=== PATIENT | female | born 1940 | race Two or more races ===

== ENCOUNTER 2020-08-20 08:59 | Outpatient (REF) | payer MEDICARE, SELFPAY ==
--- NOTE | ~2020-08-20 | XR_ITS ---
EXAMINATION: XR HIP, LEFT CLINICAL INFORMATION: Left hip pain COMPARISON: None TECHNIQUE: Two views of the left hip. FINDINGS: There is no fracture or dislocation. The femoral head articulates appropriately with its acetabulum. Small osteophytes are present. The left hemipelvis is intact. Degenerative changes of the visualized lower lumbar spine. The bowel gas pattern is unremarkable. XR/XR hip LT min 2V IMPRESSION: Mild degenerative change of the left hip.
[2020-08-20 09:38] LABS: MANUAL DIFF FLAG NO
[2020-08-20 09:44] LABS: Basophils Absolute Auto 0.1 X10*3/uL (0.0-0.2); Basophils Percent Auto 0.8 % (0-2); Eosinophils Absolute Auto 0.9 X10*3/uL (0.0-0.4); Eosinophils Percent Auto 8.3 % (0-4); Imm Gran Abs Auto 0.03 X10*3/uL (0.00-0.03); Imm Gran Pct Auto 0.3 % (0.0-0.4); Lymphocytes Percent Auto 39.2 % (20-40); Mean Corpuscular HGB Conc 32.4 g/dl (31.0-35.0); Mean Corpuscular Hemoglobin 30.1 pg (27.0-33.0); Mean Corpuscular Volume 92.7 fL (80-98); Mean Platelet Volume 9.4 fL (9.4-12.3); Monocytes Absolute Auto 0.5 X10*3/uL (0.1-1.2); Monocytes Percent Auto 5.3 % (2-11); Neutrophils Absolute Auto 4.7 X10*3/uL (2.0-8.3); Neutrophils Percent Auto 46.1 % (45-73); Platelet Count 547 X10*3/uL (160-400); Red Blood Count 3.99 X10*6/uL (4.20-5.50); Red Cell Distribution Width 13.2 % (11.0-16.0); White Blood Count 10.2 X10*3/uL (4.8-10.8)
[2020-08-20 09:45] LABS: Glucose Urine UA NEG (NEG); Leukocyte Esterase Urine 2+ (NEG); Nitrite Urine NEG (NEG); PH 5.5 (5.0-8.0); Specific Gravity - Urine >= 1.030 (1.005-1.025); Urine Blood NEG (NEG); Urine Ketones NEG (NEG); Urine Protein NEG (NEG-TRACE)
[2020-08-20 09:46] LABS: Appearance Urine HAZY; Color Urine YELLOW
[2020-08-20 09:55] LABS: Bacteria Urine TRACE /LPF; RBC Urine 0 /HPF (0); Squamous Epithelial Cell Urine 2+ /LPF
[2020-08-20 10:13] LABS: Creatinine Urine 98.99 mg/dL
[2020-08-20 10:22] LABS: Alanine Aminotransferase 15 U/L (0-31); Albumin Level 4.2 g/dL (3.5-5.0); Alkaline Phosphatase 84 U/L (39-117); Anion Gap 13 (12-20); Aspartate Amino Transferase 17 U/L (5-31); Bilirubin Total 0.7 mg/dL (0.0-1.0); Blood Urea Nitrogen 9 mg/dL (9-16); Calcium 9.4 mg/dL (8.4-10.2); Carbon Dioxide 28 mmol/L (22-29); Chloride 105 mmol/L (96-108); Cholesterol 122 mg/dL; Estimated Glomerular Filt Rate > 60; Glucose Random 114 mg/dL (60-115); HDL Cholesterol 36 mg/dL; LDL Cholesterol Calculated 63 mg/dl; Potassium 4.3 mmol/L (3.3-5.1); Sodium 142 mmol/L (135-145); Total Protein 8.1 g/dL (6.5-8.0); Triglycerides 118 mg/dL
[2020-08-20 10:36] LABS: Free T4 (Free Thyroxine) 0.84 ng/dL (0.71-1.85); Thyroid Stimulating Hormone 2.62 uIU/mL (0.32-4.0); Vitamin D 25-OH Total 54.3 ng/mL (>30)
[2020-08-20 11:45] LABS: Folate 5.2 ng/mL (> or = 4.0); Vitamin B12 383 pg/mL (200-900)
== END 2020-08-20 09:00 | disposition home or self-care (01) ==
LOC: HO.LAB 08:59
PROVIDERS: PCP Internal Medicine; Visit Provider Internal Medicine
DX: E11.65 Type 2 diabetes mellitus with hyperglycemia (principal); I10 Essential (primary) hypertension; E78.00 Pure hypercholesterolemia, unspecified; M25.552 Pain in left hip
CPT/HCPCS: 36415; 73502; 80053; 80061; 81001; 82043; 82306; 82607; 82746; 84439; 84443; 85025

== ENCOUNTER 2020-10-07 12:45 | Outpatient (REF) | payer MEDICARE, SELFPAY ==
[2020-10-07 14:13] LABS: MANUAL DIFF FLAG NO
[2020-10-07 14:20] LABS: Glucose Urine UA NEG (NEG); Leukocyte Esterase Urine 1+ (NEG); Nitrite Urine NEG (NEG); PH 5.5 (5.0-8.0); Urine Blood NEG (NEG); Urine Ketones NEG (NEG); Urine Protein NEG (NEG-TRACE)
[2020-10-07 14:20] LABS: Basophils Absolute Auto 0.1 X10*3/uL (0.0-0.2); Basophils Percent Auto 0.9 % (0-2); Eosinophils Percent Auto 8.9 % (0-4); Hematocrit 35.7 % (37-47); Hemoglobin 11.6 g/dl (12.0-16.0); Imm Gran Abs Auto 0.02 X10*3/uL (0.00-0.03); Imm Gran Pct Auto 0.2 % (0.0-0.4); Lymphocytes Absolute Auto 4.7 X10*3/uL (1.2-4.9); Lymphocytes Percent Auto 42.7 % (20-40); Mean Corpuscular HGB Conc 32.5 g/dl (31.0-35.0); Mean Corpuscular Hemoglobin 30.5 pg (27.0-33.0); Mean Corpuscular Volume 93.9 fL (80-98); Mean Platelet Volume 9.6 fL (9.4-12.3); Monocytes Absolute Auto 0.7 X10*3/uL (0.1-1.2); Monocytes Percent Auto 6.1 % (2-11); Neutrophils Absolute Auto 4.6 X10*3/uL (2.0-8.3); Neutrophils Percent Auto 41.2 % (45-73); Platelet Count 576 X10*3/uL (160-400); Red Cell Distribution Width 13.6 % (11.0-16.0)
[2020-10-07 14:25] LABS: Appearance Urine CLEAR; Color Urine YELLOW
[2020-10-07 14:32] LABS: Anion Gap 13 (12-20); Blood Urea Nitrogen 9 mg/dL (9-16); Calcium 9.8 mg/dL (8.4-10.2); Carbon Dioxide 28 mmol/L (22-29); Chloride 104 mmol/L (96-108); Estimated Glomerular Filt Rate > 60; Glucose Random 99 mg/dL (60-115); Potassium 4.7 mmol/L (3.3-5.1); Sodium 140 mmol/L (135-145)
[2020-10-07 14:47] LABS: Creatinine Urine 98.42 mg/dL
[2020-10-07 14:56] LABS: RBC Urine 0 /HPF (0); Squamous Epithelial Cell Urine 1+ /LPF
== END 2020-10-07 12:46 | disposition home or self-care (01) ==
LOC: HO.LAB 12:45
PROVIDERS: PCP Internal Medicine; Visit Provider Internal Medicine
DX: Z01.818 Encounter for other preprocedural examination (principal); E11.65 Type 2 diabetes mellitus with hyperglycemia; I10 Essential (primary) hypertension
CPT/HCPCS: 36415; 80048; 81001; 85025

== ENCOUNTER 2020-11-13 08:40 | Outpatient (REF) | payer MEDICARE, SELFPAY ==
[2020-11-13 10:05] LABS: Glucose Urine UA NEG (NEG); Leukocyte Esterase Urine 3+ (NEG); Nitrite Urine NEG (NEG); Urine Blood NEG (NEG); Urine Ketones NEG (NEG); Urine Protein NEG (NEG-TRACE)
[2020-11-13 10:07] LABS: Appearance Urine HAZY; Color Urine YELLOW
[2020-11-13 10:12] LABS: Bacteria Urine TRACE /LPF; RBC Urine 0 /HPF (0); Squamous Epithelial Cell Urine 3+ /LPF
[2020-11-13 10:13] LABS: MANUAL DIFF FLAG NO
[2020-11-13 10:18] LABS: Basophils Absolute Auto 0.1 X10*3/uL (0.0-0.2); Basophils Percent Auto 0.8 % (0-2); Eosinophils Absolute Auto 0.9 X10*3/uL (0.0-0.4); Eosinophils Percent Auto 7.4 % (0-4); Hematocrit 37.4 % (37-47); Hemoglobin 11.7 g/dl (12.0-16.0); Imm Gran Abs Auto 0.03 X10*3/uL (0.00-0.03); Imm Gran Pct Auto 0.3 % (0.0-0.4); Lymphocytes Absolute Auto 4.2 X10*3/uL (1.2-4.9); Lymphocytes Percent Auto 35.7 % (20-40); Mean Corpuscular HGB Conc 31.3 g/dl (31.0-35.0); Mean Corpuscular Hemoglobin 29.6 pg (27.0-33.0); Mean Corpuscular Volume 94.7 fL (80-98); Mean Platelet Volume 9.5 fL (9.4-12.3); Monocytes Absolute Auto 0.7 X10*3/uL (0.1-1.2); Monocytes Percent Auto 5.8 % (2-11); Neutrophils Absolute Auto 5.9 X10*3/uL (2.0-8.3); Platelet Count 624 X10*3/uL (160-400); Red Blood Count 3.95 X10*6/uL (4.20-5.50); Red Cell Distribution Width 13.7 % (11.0-16.0); White Blood Count 11.8 X10*3/uL (4.8-10.8)
[2020-11-13 10:28] LABS: Estimated Average Glucose 157 mg/dL; Hemoglobin A1c % 7.1 %
== END 2020-11-13 08:41 | disposition home or self-care (01) ==
LOC: HO.LAB 08:40
PROVIDERS: PCP Internal Medicine; Visit Provider Internal Medicine
DX: D47.3 Essential (hemorrhagic) thrombocythemia (principal); E11.65 Type 2 diabetes mellitus with hyperglycemia
CPT/HCPCS: 36415; 81001; 83036; 85025

== ENCOUNTER 2021-05-07 13:43 | Outpatient (REF) | payer MEDICARE, SELFPAY ==
--- NOTE | ~2021-05-07 | MM_ITS ---
EXAMINATION: BONE DENSITOMETRY CLINICAL INDICATION: Menopause. Cystocele, unspecified. COMPARISON: This is the patient's baseline examination. TECHNIQUE: Using a [employer] DXA System (software version: 13.1) manufactured by [employer], dual-energy x-ray absorptiometry was performed of the lumbar spine and left hip. The images are of good technical quality. Summary results are attached. FINDINGS: AP SPINE L1-L4 (excluding L3): The data of L1-L4 has been changed to exclude the L3 vertebral body, because degenerative changes at this level may cause overestimation of lumbar spine density. BMD 0.985 g/cm2, Z-score 0.3, T-score -1.5, osteopenia. LEFT FEMUR, NECK: BMD 0.806 g/cm2, Z-score 0.4, T-score -1.7, osteopenia. LEFT FEMUR, TOTAL: BMD 0.813 g/cm2, Z-score 0.4, T-score -1.5, osteopenia. IDENTIFIED RISK FACTORS: Menopause, anticonvulsant. HISTORY OF FRACTURE: None listed. MEDICATIONS: Vitamin D. MM/XR DEXA axial skeleton IMPRESSION: 1. DIAGNOSIS: Osteopenia based on the lowest T-score value of -1.7 in the femoral neck applying World Health Organization criteria. 2. 10-YEAR FRACTURE RISK PREDICTION, FRAX: Major osteoporotic fracture (clinical spine, forearm, hip or shoulder) 8.4%. Hip fracture 2.1%. 3. Treatment Recommendations: NOF guidelines recommend consideration for treatment in postmenopausal women and men age 50 and older presenting with the following: -A hip or vertebral (clinical or morphometric) fracture. -T-score less than or equal to -2.5 at the femoral neck or spine after appropriate evaluation to exclude secondary causes. -Low bone mass at the hip or spine and a 10-year fracture probability by FRAX of greater than or equal to 3% for hip fracture or greater than or equal to 20% for major osteoporotic fracture based on the [place] adapted WHO algorithm. 4. Other Recommendations: All treatment decisions require clinical judgment and consideration of individual patient factors, including patient preferences, comorbidities, previous drug use, risk factors not captured in the FRAX model (e.g. frailty, falls, vitamin D deficiency, increased bone turnover, interval significant decline in bone density) and possible under or overestimation of fracture risk by FRAX. Additional medical evaluation for secondary cause of low bone mineral density may be appropriate. FUTURE SCAN RECOMMENDATION: People with diagnosed cases of osteoporosis or at high risk for fracture should have regular bone mineral density tests. For patients eligible for Medicare, routine testing is allowed once every 2 years. The testing frequency can be increased to one year for patients who have rapidly progressing disease, those who are receiving or discontinuing medical therapy to restore bone mass, or have additional risk factors.
== END 2021-05-07 13:44 | disposition home or self-care (01) ==
LOC: HO.MAMMO 13:43
PROVIDERS: Visit Provider Internal Medicine
DX: Z13.820 Encounter for screening for osteoporosis (principal); N81.10 Cystocele, unspecified; Z78.0 Asymptomatic menopausal state; Z79.899 Other long term (current) drug therapy
CPT/HCPCS: 77080

== ENCOUNTER 2021-09-03 08:25 | Outpatient (REF) | payer MEDICARE, SELFPAY ==
[2021-09-03 08:51] LABS: MANUAL DIFF FLAG NO
[2021-09-03 09:18] LABS: Basophils Absolute Auto 0.1 X10*3/uL (0.0-0.2); Basophils Percent Auto 0.8 % (0-2); Eosinophils Absolute Auto 0.9 X10*3/uL (0.0-0.4); Eosinophils Percent Auto 8.5 % (0-4); Hematocrit 37.5 % (37.0-47.0); Hemoglobin 11.8 g/dl (12.0-16.0); Imm Gran Abs Auto 0.03 X10*3/uL (0.00-0.03); Imm Gran Pct Auto 0.3 % (0.0-0.4); Lymphocytes Absolute Auto 4.3 X10*3/uL (1.2-4.9); Mean Corpuscular HGB Conc 31.5 g/dl (31.0-35.0); Mean Corpuscular Hemoglobin 29.8 pg (27.0-33.0); Mean Corpuscular Volume 94.7 fL (80.0-98.0); Mean Platelet Volume 9.3 fL (9.4-12.3); Monocytes Absolute Auto 0.7 X10*3/uL (0.1-1.2); Monocytes Percent Auto 6.5 % (2-11); Neutrophils Absolute Auto 4.7 x10*3/uL (2.0-8.3); Neutrophils Percent Auto 43.9 % (45-73); Platelet Count 607 X10*3/uL (160-400); Red Blood Count 3.96 X10*6/uL (4.20-5.50); Red Cell Distribution Width 13.4 % (11.0-16.0); White Blood Count 10.6 X10*3/uL (4.8-10.8)
[2021-09-03 09:27] LABS: Estimated Average Glucose 148 mg/dL; Hemoglobin A1c % 6.8 %
[2021-09-03 09:45] LABS: Alanine Aminotransferase 11 U/L (0-31); Albumin Level 3.9 g/dL (3.5-5.0); Alkaline Phosphatase 87 U/L (39-117); Anion Gap 15 (12-20); Aspartate Amino Transferase 15 U/L (5-31); Bilirubin Total 0.3 mg/dL (0.0-1.0); Blood Urea Nitrogen 10 mg/dL (9-16); Calcium 9.9 mg/dL (8.4-10.2); Carbon Dioxide 25 mmol/L (22-29); Chloride 105 mmol/L (96-108); Cholesterol 126 mg/dL; Estimated Glomerular Filt Rate > 60; Glucose Random 124 mg/dL (60-115); HDL Cholesterol 34 mg/dL; LDL Cholesterol Calculated 63 mg/dl; Potassium 4.6 mmol/L (3.3-5.1); Sodium 140 mmol/L (135-145); Triglycerides 149 mg/dL
[2021-09-03 10:07] LABS: Free T4 (Free Thyroxine) 0.85 ng/dL (0.71-1.85); Thyroid Stimulating Hormone 2.33 uIU/mL (0.32-4.0)
[2021-09-03 10:23] LABS: Folate 3.9 ng/mL (> or = 4.0); Vitamin B12 298 pg/mL (200-900)
== END 2021-09-03 08:26 | disposition home or self-care (01) ==
LOC: HO.LAB 08:25
PROVIDERS: PCP Internal Medicine; Visit Provider Internal Medicine
DX: E11.65 Type 2 diabetes mellitus with hyperglycemia (principal); E78.00 Pure hypercholesterolemia, unspecified
CPT/HCPCS: 36415; 80053; 80061; 82306; 82607; 82746; 83036; 84439; 84443; 85025

== ENCOUNTER 2021-12-11 10:25 | Outpatient (REF) | payer OTHER, SELFPAY ==
[2021-12-11 12:03] LABS: Creatinine Urine 76.22 mg/dL; Microalbum/Creatinine Ratio Ur 14.4 ug/mg cr
== END 2021-12-11 10:26 | disposition home or self-care (01) ==
LOC: HO.LAB 10:25
PROVIDERS: PCP Internal Medicine; Visit Provider Internal Medicine
DX: E11.65 Type 2 diabetes mellitus with hyperglycemia (principal)
CPT/HCPCS: 82043

== ENCOUNTER 2022-03-11 10:22 | Outpatient (REF) | payer OTHER, SELFPAY ==
[2022-03-11 10:36] LABS: MANUAL DIFF FLAG NO
[2022-03-11 11:28] LABS: Basophils Absolute Auto 0.1 X10*3/uL (0.0-0.2); Imm Gran Abs Auto 0.03 X10*3/uL (0.00-0.03); Imm Gran Pct Auto 0.3 % (0.0-0.4); Lymphocytes Absolute Auto 4.2 X10*3/uL (1.2-4.9); Lymphocytes Percent Auto 36.6 % (20-40); Mean Corpuscular HGB Conc 31.6 g/dl (31.0-35.0); Mean Corpuscular Hemoglobin 29.5 pg (27.0-33.0); Mean Corpuscular Volume 93.4 fL (80.0-98.0); Mean Platelet Volume 9.5 fL (9.4-12.3); Monocytes Absolute Auto 0.6 X10*3/uL (0.1-1.2); Monocytes Percent Auto 5.6 % (2-11); Neutrophils Absolute Auto 5.5 x10*3/uL (2.0-8.3); Neutrophils Percent Auto 47.5 % (45-73); Platelet Count 677 X10*3/uL (160-400); Red Blood Count 4.07 X10*6/uL (4.20-5.50); Red Cell Distribution Width 14.6 % (11.0-16.0); White Blood Count 11.5 X10*3/uL (4.8-10.8)
[2022-03-11 11:37] LABS: Estimated Average Glucose 146 mg/dL; Hemoglobin A1c % 6.7 %
[2022-03-11 12:03] LABS: Alanine Aminotransferase 14 U/L (0-31); Albumin Level 4.1 g/dL (3.5-5.0); Alkaline Phosphatase 82 U/L (39-117); Anion Gap 17 (12-20); Aspartate Amino Transferase 17 U/L (5-31); Bilirubin Total 0.9 mg/dL (0.0-1.0); Blood Urea Nitrogen 9 mg/dL (9-16); Calcium 9.9 mg/dL (8.4-10.2); Carbon Dioxide 26 mmol/L (22-29); Chloride 103 mmol/L (96-108); Cholesterol 114 mg/dL; Estimated Glomerular Filt Rate > 60; Glucose Random 98 mg/dL (60-115); HDL Cholesterol 32 mg/dL; LDL Cholesterol Calculated 55 mg/dl; Sodium 141 mmol/L (135-145); Total Protein 8.5 g/dL (6.5-8.0); Triglycerides 136 mg/dL
[2022-03-11 12:14] LABS: Free T4 (Free Thyroxine) 0.94 ng/dL (0.71-1.85); Thyroid Stimulating Hormone 1.81 uIU/mL (0.32-4.0)
== END 2022-03-11 10:23 | disposition home or self-care (01) ==
LOC: HO.LAB 10:22
PROVIDERS: PCP Internal Medicine; Visit Provider Internal Medicine
DX: I10 Essential (primary) hypertension (principal); E78.00 Pure hypercholesterolemia, unspecified
CPT/HCPCS: 36415; 80053; 80061; 83036; 84439; 84443; 85025

== ENCOUNTER 2022-05-28 12:36 | Outpatient (REF) | payer OTHER, SELFPAY ==
--- NOTE | ~2022-05-28 | XR_ITS ---
EXAMINATION: XR hip RT min 2V, XR lumbar spine 2-3V, XR hip LT min 2V CLINICAL INFORMATION: Reason for Exam M25.551 - Pain in right hip COMPARISON: Radiographs 08/20/2020 TECHNIQUE: 3 views of the lumbar spine. 2 views of each hip was obtained. 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 The last well-formed disc space will be referred to as S1-S2. Vertebral body heights are maintained. Levoconvex curvature of the lumbar spine. Mild to moderate multilevel degenerative disc disease with loss of disc space height and degenerative endplate spurring. Paravertebral soft tissues are unremarkable. Mild degenerative changes of the bilateral hips with degenerative spurring. No hip or pelvic fracture or dislocation. 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 The last well-formed disc space will be referred to as S1-S2. If intervention is being considered recommend total spine radiographs to ensure accurate numbering. 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 * Minimal degenerative changes of the hips. * Levoconvex curvature of the lumbar spine.
--- NOTE | ~2022-05-28 | XR_ITS ---
EXAMINATION: XR hip RT min 2V, XR lumbar spine 2-3V, XR hip LT min 2V CLINICAL INFORMATION: Reason for Exam M25.551 - Pain in right hip COMPARISON: Radiographs 08/20/2020 TECHNIQUE: 3 views of the lumbar spine. 2 views of each hip was obtained. 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 The last well-formed disc space will be referred to as S1-S2. Vertebral body heights are maintained. Levoconvex curvature of the lumbar spine. Mild to moderate multilevel degenerative disc disease with loss of disc space height and degenerative endplate spurring. Paravertebral soft tissues are unremarkable. Mild degenerative changes of the bilateral hips with degenerative spurring. No hip or pelvic fracture or dislocation. 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 The last well-formed disc space will be referred to as S1-S2. If intervention is being considered recommend total spine radiographs to ensure accurate numbering. 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 * Minimal degenerative changes of the hips. * Levoconvex curvature of the lumbar spine.
--- NOTE | ~2022-05-28 | XR_ITS ---
EXAMINATION: XR hip RT min 2V, XR lumbar spine 2-3V, XR hip LT min 2V CLINICAL INFORMATION: Reason for Exam M25.551 - Pain in right hip COMPARISON: Radiographs 08/20/2020 TECHNIQUE: 3 views of the lumbar spine. 2 views of each hip was obtained. 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 The last well-formed disc space will be referred to as S1-S2. Vertebral body heights are maintained. Levoconvex curvature of the lumbar spine. Mild to moderate multilevel degenerative disc disease with loss of disc space height and degenerative endplate spurring. Paravertebral soft tissues are unremarkable. Mild degenerative changes of the bilateral hips with degenerative spurring. No hip or pelvic fracture or dislocation. 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 The last well-formed disc space will be referred to as S1-S2. If intervention is being considered recommend total spine radiographs to ensure accurate numbering. 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 * Minimal degenerative changes of the hips. * Levoconvex curvature of the lumbar spine.
== END 2022-05-28 12:37 | disposition home or self-care (01) ==
LOC: HO.XRAY 12:36
PROVIDERS: PCP Internal Medicine; Visit Provider Internal Medicine
DX: M25.551 Pain in right hip (principal); M25.552 Pain in left hip; M51.36 Other intervertebral disc degeneration, lumbar region
CPT/HCPCS: 72100; 73502

== ENCOUNTER 2022-07-16 09:14 | Outpatient (REF) | payer OTHER, SELFPAY ==
--- NOTE | ~2022-07-16 | XR_ITS ---
EXAMINATION: XR CHEST CLINICAL INFORMATION: Interstitial pulmonary disease. COMPARISON: None TECHNIQUE: 2 views of the chest were obtained. FINDINGS: The lungs are well-expanded with bilateral increase interstitial markings but no acute consolidation or pleural effusion. The heart size and pulmonary vascularity is normal. No gross bony abnormalities seen. XR/XR chest 2V IMPRESSION: Bilateral increased interstitial markings but no acute consolidation or pleural effusion seen. Correlation with high-resolution CT chest can be performed
[2022-07-16 09:30] LABS: MANUAL DIFF FLAG NO
[2022-07-16 10:36] LABS: Appearance Urine Clear; Color Urine Yellow; Glucose Urine UA Negative (Negative); Leukocyte Esterase Urine Moderate (2+) (Negative); Nitrite Urine Negative (Negative); PH 5.5 (5.0-9.0); Specific Gravity - Urine 1.015 (1.005-1.025); UMIC TRIGGER UA YES; Urine Blood Negative (Negative); Urine Ketones Negative (Negative); Urine Protein Negative (Neg-Trace)
[2022-07-16 10:43] LABS: Basophils Absolute Auto 0.1 X10*3/uL (0.0-0.2); Basophils Percent Auto 0.7 % (0-2); Eosinophils Absolute Auto 0.8 X10*3/uL (0.0-0.4); Eosinophils Percent Auto 5.6 % (0-4); Hemoglobin 11.2 g/dl (12.0-16.0); Imm Gran Abs Auto 0.04 X10*3/uL (0.00-0.03); Imm Gran Pct Auto 0.3 % (0.0-0.4); Lymphocytes Absolute Auto 2.5 X10*3/uL (1.2-4.9); Lymphocytes Percent Auto 18.4 % (20-40); Mean Corpuscular HGB Conc 31.1 g/dl (31.0-35.0); Mean Corpuscular Hemoglobin 28.5 pg (27.0-33.0); Mean Corpuscular Volume 91.6 fL (80.0-98.0); Mean Platelet Volume 9.9 fL (9.4-12.3); Monocytes Absolute Auto 0.9 X10*3/uL (0.1-1.2); Monocytes Percent Auto 6.7 % (2-11); Neutrophils Absolute Auto 9.2 x10*3/uL (2.0-8.3); Neutrophils Percent Auto 68.3 % (45-73); Platelet Count 624 X10*3/uL (160-400); Red Blood Count 3.93 X10*6/uL (4.20-5.50); White Blood Count 13.5 X10*3/uL (4.8-10.8)
[2022-07-16 10:46] LABS: Bacteria Urine None Seen (None Seen); Hyaline Casts Urine 0-2 /LPF (0-2); RBC Urine 0-2 /HPF (0-2); Squamous Epithelial Cell Urine 0-2 /HPF (0-2); WBC Urine 0-5 /HPF (0-5)
[2022-07-16 11:13] LABS: Estimated Average Glucose 148 mg/dL; Hemoglobin A1C 149.8868 umol/L; Hemoglobin A1c % 6.8 %
[2022-07-16 11:16] LABS: B Type Natriuretic Peptide 31 pg/mL (<100)
[2022-07-16 11:25] LABS: Alanine Aminotransferase 17 U/L (0-31); Albumin Level 3.8 g/dL (3.5-5.0); Alkaline Phosphatase 80 U/L (39-117); Anion Gap 14 (12-20); Aspartate Amino Transferase 15 U/L (5-31); Bilirubin Total 0.7 mg/dL (0.0-1.0); Blood Urea Nitrogen 10 mg/dL (9-16); Calcium 9.5 mg/dL (8.4-10.2); Carbon Dioxide 28 mmol/L (22-29); Chloride 101 mmol/L (96-108); Estimated Glomerular Filt Rate > 60; Glucose Random 132 mg/dL (60-115); Sodium 139 mmol/L (135-145); Total Protein 7.4 g/dL (6.5-8.0)
[2022-07-16 11:50] LABS: Ferritin 112 ng/mL (10-250); Free T4 (Free Thyroxine) 0.89 ng/dL (0.71-1.85); Thyroid Stimulating Hormone 1.52 uIU/mL (0.32-4.0)
[2022-07-16 12:25] LABS: Folate > 20.0 ng/mL (> or = 4.0); Vitamin B12 433 pg/mL (200-900)
== END 2022-07-16 09:15 | disposition home or self-care (01) ==
LOC: HO.LAB 09:14
PROVIDERS: PCP Internal Medicine; Visit Provider Internal Medicine
DX: J84.9 Interstitial pulmonary disease, unspecified (principal)
CPT/HCPCS: 36415; 71046; 80053; 81001; 82607; 82728; 82746; 83036; 83880; 84439; 84443; 85025

== ENCOUNTER → 2022-07-23 09:47 | Outpatient (BNVA) | payer OTHER, SELFPAY | PROVIDERS: PCP Internal Medicine; Visit Provider Hospitalist | DX: J84.10 Pulmonary fibrosis, unspecified (principal); J18.9 Pneumonia, unspecified organism; J96.20 Acute and chronic respiratory failure, unspecified whether with hypoxia or hypercapnia; Z99.81 Dependence on supplemental oxygen; Z86.73 Personal history of transient ischemic attack (TIA), and cerebral infarction without residual deficits | CPT/HCPCS: 93005 ==

== ENCOUNTER 2022-07-23 10:54 | Emergency (ER) | payer OTHER, SELFPAY ==
[2022-07-23] VITALS (7 sets, daily range): BP systolic 111–141; BP diastolic 49–74; PULSE 98–106; RESP 18–40; TEMP 36.2–36.5; O2SAT 92–99; BMI 23.3
--- NOTE | ~2022-07-23 | XR_ITS ---
EXAMINATION: XR CHEST CLINICAL INFORMATION: Shortness of breath COMPARISON: 07/16/2022 TECHNIQUE: Frontal view of the chest was obtained. FINDINGS: No significant change in appearance of the diffuse interstitial abnormality which could be further characterized with a high resolution chest CT if indicated. Cannot exclude a persistent atypical infection. No lobar consolidation or effusion. No definite edema. Stable cardiomediastinal silhouette. XR/XR chest 1V IMPRESSION: No significant change in the diffuse interstitial abnormality which could be further characterized with a high resolution chest CT if indicated. Cannot exclude atypical infection superimposed on chronic interstitial lung disease.
--- NOTE | 2022-07-23 11:17 | ECG_ITS ---
Test Reason : tachycardia Blood Pressure : / mmHG Vent. Rate : 103 BPM Atrial Rate : 103 BPM P-R Int : 166 ms QRS Dur : 072 ms QT Int : 352 ms P-R-T Axes : 048 -39 -08 degrees QTc Int : 461 ms Sinus tachycardia Left axis deviation T wave abnormality, consider anterior ischemia Abnormal ECG No previous ECGs available Referred By: Montse Isaacs Electronically Signed By:Mejia Nicole
--- NOTE | 2022-07-23 11:19 | ED_ITS ---
HPI - General Adult General Chief complaint: Dyspnea <BREE Kohler - Last Filed: 07/23/22 11:22> Stated complaint: High heart rate, pneumonia, sent by DR <BREE Kohler - Last Filed: 07/23/22 11:22> Time Seen by Provider: 07/23/22 13:04 <BREE Kohler - Last Filed: 07/23/22 11:22> Source: patient and family <Uri Antunez MD - Last Filed: 07/23/22 15:54> Mode of arrival: ambulatory <Uri Antunez MD - Last Filed: 07/23/22 15:54> Limitations: no limitations <Uri Antunez MD - Last Filed: 07/23/22 15:54> History of Present Illness HPI narrative: 81-year-old female presents emergency department for concerns from her furrier designer. Patient was hospitalized beginning in June at [facility]. She is diagnosed with COVID followed by pneumonia. Upon her discharge she was sent home on oxygen. She was seen by her primary care provider who ambulated her without oxygen and noted her O2 sats to go into the low 80s is she was subs equently referred to pulmonary medicine today. Patient was noted to be tachycardic at arrival. Had an abnormal EKG and was referred to the emergency department. Patient herself denies any significant symptoms such as chest pain, shortness breath, palpitations. She did complain of some lightheadedness earlier today. That has since resolved. She denies any fevers or chills, chest pain with exertion, chest pain at rest, lower extremity edema. <Uri Antunez MD - Last Filed: 07/23/22 15:54> Related Data Home medications: Previous Rx's Medication Instructions Recorded acetaminophen 500 mg tablet 1,000 mg PO TID pain 90 days #540 05/07/21 tabs diclofenac sodium 1 % topical gel 4 g topical QID #100 grams 05/07/21 meloxicam 7.5 mg tablet 7.5 mg PO DAILY PRN pain 30 days 05/07/21 #30 tabs evencare G2 blood glucose moniter #1 ea 10/02/21 starter kit Medline ext cuff nitrile glove #1 ea 12/03/21 sterile pairs (medium) Medline wall mount sharps #1 ea 12/03/21 container 3 galloon red medline alcohol prep pads 1.75x3 #1 ea 12/03/21 medline basic face mask #1 ea 12/03/21 medlinecontour plus bladder #90 ea 12/03/21 control pads duloxetine 60 mg capsule,delayed 60 mg PO DAILY 90 days #90 caps 01/09/22 release gabapentin 300 mg capsule 300 mg PO BEDTIME 90 days #90 caps 01/09/22 metformin 750 mg tablet,extended 750 mg PO BID 90 days #180 tabs 01/09/22 release 24 hr aspirin 81 mg tablet,delayed 81 mg PO DAILY 90 days #90 tabs 03/23/22 release (Adult Aspirin Regimen) cholecalciferol (vitamin D3) 50 50 mcg PO DAILY 90 days #90 caps 03/23/22 mcg (2,000 unit) capsule losartan 50 mg tablet 50 mg PO DAILY 90 days #90 tabs 03/23/22 atorvastatin 40 mg tablet 40 mg PO QPM 90 days #90 tabs 04/13/22 tramadol 50 mg tablet 50 mg PO BEDTIME #30 tabs 05/11/22 dulaglutide 0.75 mg/0.5 mL 0.75 mg (0.5 mL) subcut QWEEK 90 06/07/22 subcutaneous pen injector days #13 mL (Trulicity) folic acid 1 mg tablet 1 mg PO DAILY #90 tabs 06/27/22 <BREE Kohler - Last Filed: 07/23/22 11:22> Allergies/adverse reactions: Allergies Allergy/AdvReac Type Severity Reaction Status Date / Time No Known Allergies Allergy Verified 07/23/22 10:06 <BREE Kohler - Last Filed: 07/23/22 11:22> Review of Systems Review of Systems: Yes all other systems are reviewed and are negative <Uri Antunez MD - Last Filed: 07/23/22 15:54> Constitutional: Constitutional: Reports no additional constitutional complaints <Uri Antunez MD - Last Filed: 07/23/22 15:54> Eyes: Eyes: Reports no additional eye complaints <Uri Antunez MD - Last Filed: 07/23/22 15:54> ENT: Reports system reviewed and no additional complaints, except as documented <Uri Antunez MD - Last Filed: 07/23/22 15:54> Cardiovascular: Cardiovascular: Reports no additional cardiovascular complaints <Uri Antunez MD - Last Filed: 07/23/22 15:54> Respiratory: Respiratory: Reports no additional respiratory complaints <Uri Antunez MD - Last Filed: 07/23/22 15:54> Gastrointestinal: Gastrointestinal: Reports no additional gastrointestinal complaints <Uri Antunez MD - Last Filed: 07/23/22 15:54> Genitourinary: Genitourinary: Reports no additional female genitourinary complaints <Uri Antunez MD - Last Filed: 07/23/22 15:54> Musculoskeletal: Musculoskeletal: Reports no additional musculoskeletal com plaints <Uri Antunez MD - Last Filed: 07/23/22 15:54> Integumentary/Breasts: Skin/Breast: Reports system reviewed and no additional complaints, except as docu <Uri Antunez MD - Last Filed: 07/23/22 15:54> Neurologic: Reports system reviewed and no additional complaints, except as documented <Uri Antunez MD - Last Filed: 07/23/22 15:54> Psychiatric: Psychiatric: Reports no additional psychiatric complaints <Uri Antunez MD - Last Filed: 07/23/22 15:54> Endocrine: Endocrine: Reports no additional endocrine complaints <Uri Antunez MD - Last Filed: 07/23/22 15:54> Hematologic/Lymphatic: Hematologic/Lymphatic: Reports no additional hematologic/lymphatic complaints <Uri Antunez MD - Last Filed: 07/23/22 15:54> Allergic/Immunologic: Allergic/Immunologic: Reports no additional allergic/immunologic complaints <Uri Antunez MD - Last Filed: 07/23/22 15:54> [facility] Past Medical History Medical History: Medical History CVA (cerebral vascular accident) Cystocele Generalized anxiety disorder Hypercholesterolemia Hypertension Insomnia Interstitial pulmonary fibrosis Lumbar spinal stenosis Osteopenia Type 2 diabetes mellitus with hyperglycemia Urinary incontinence <BREE Kohler - Last Filed: 07/23/22 11:22> Surgical History: Surgical History Hx of section <BREE Kohler - Last Filed: 07/23/22 11:22> Social History Social History: Social History Housing: Apartment Alcohol intake: never Patient Tobacco Use Status: Never used Tobacco Smoked in Last 30 Days: No e-Cigarette/Vaping Use: Never Used Second Hand Smoke Exposure: No Use of substances other than those prescribed or required for medical reasons: No Advance Directives: No service: No Current occupational status: retired Cognitive needs: Yes ([employer] at home) Hearing needs: No Vision needs: Yes <BREE Kohler - Last Filed: 07/23/22 11:22> Physical Exam ED Vital Signs: Vital Signs - 24 hr 07/23/22 11:16 07/23/22 11:37 07/23/22 14:25 Temperature 97.1 F 97.6 F 97.7 F Pulse Rate 104 H 98 104 H Respiratory Rate 18 40 H 40 H Blood Pressure 119/68 118/71 111/49 L Pulse Oximetry 99 99 92 Oxygen Delivery Method Nasal Cannula Nasal Cannula Room Air Oxygen Flow Rate 2 1.5 07/23/22 15:31 07/23/22 15:42 07/23/22 15:32 Temperature Pulse Rate 98 103 H Respiratory Rate Blood Pressure 119/62 138/74 Pulse Oximetry 93 Oxygen Delivery Method Oxygen Flow Rate 07/23/22 15:35 Temperature Pulse Rate 106 H Respiratory Rate Blood Pressure 141/74 H Pulse Oximetry Oxygen Delivery Method Oxygen Flow Rate BMI result Body Mass Index 23.3 <BREE Kohler - Last Filed: 07/23/22 11:22> Vital Signs - 24 hr 07/23/22 11:16 07/23/22 11:37 07/23/22 14:25 Temperature 97.1 F 97.6 F 97.7 F Pulse Rate 104 H 98 104 H Respiratory Rate 18 40 H 40 H Blood Pressure 119/68 118/71 111/49 L Pulse Oximetry 99 99 92 Oxygen Delivery Method Nasal Cannula Nasal Cannula Room Air Oxygen Flow Rate 2 1.5 07/23/22 15:31 07/23/22 15:42 07/23/22 15:32 Temperature Pulse Rate 98 103 H Respiratory Rate Blood Pressure 119/62 138/74 Pulse Oximetry 93 Oxygen Delivery Method Oxygen Flow Rate 07/23/22 15:35 Temperature Pulse Rate 106 H Respiratory Rate Blood Pressure 141/74 H Pulse Oximetry Oxygen Delivery Method Oxygen Flow Rate BMI result Body Mass Index 23.3 <Uri Antunez MD - Last Filed: 07/23/22 15:54> Const General: cooperative, healthy appearing, comfortable and no acute distress <Uri Antunez MD - Last Filed: 07/23/22 15:54> Nutritional Appearance: average body habitus <Uri Antunez MD - Last Filed: 07/23/22 15:54> Orientation/consciousness: patient oriented x3 <Uri Antunez MD - Last Filed: 07/23/22 15:54> Limitations: no limitations <Uri Antunez MD - Last Filed: 07/23/22 15:54> HENMT Head: Yes normal to inspection <Uri Antunez MD - Last Filed: 07/23/22 15:54> Ears: hearing grossly normal bilaterally <Uri Antunez MD - Last Filed: 07/23/22 15:54> Eyes General: appearance normal, both eyes and all related structures <Uri Antunez MD - Last Filed: 07/23/22 15:54> Resp Effort & Inspection: normal respiratory effort and able to speak in complete sentences <Uri Antunez MD - Last Filed: 07/23/22 15:54> Auscultation: other (Fine crackles bilaterally 2/3 of both lungs) <Uri Antunez MD - Last Filed: 07/23/22 15:54> Cardio Rate: regular rate <Uri Antunez MD - Last Filed: 07/23/22 15:54> Rhythm: regular rhythm <Uri Antunez MD - Last Filed: 07/23/22 15:54> GI Palpation (GI): Soft to palpation and nontender <Uri Antunez MD - Last Filed: 07/23/22 15:54> Skin General skin exam: no rashes or lesions noted <MD Aziza Carranza Last Filed: 07/23/22 15:54> Neuro General: patient oriented x3, no focal motor deficits and CN's II-XI intact bilaterally <Uri Antunez MD - Last Filed: 07/23/22 15:54> Extrem General: Yes normal to inspection and No edema <MD Aziza Carranza Last Filed: 07/23/22 15:54> Psych Mental Status: mental status grossly normal <Uri Antunez MD - Last Filed: 07/23/22 15:54> Course Course Course Narrative: RME - 81 yo [place] speaking female with history of DM2, CVA 2016, HTN, HLD, ILD, recent admission at [facility] for PNA for which she was discharged with 2L NC who presents to the ER from Pulmonology office for tachycardia, dizziness, and inverted t-waves. no old EKG here. she feels dizzy and weak, denies SOB or chest pain at this time.. HR 107, SpO2 100% on 2L NC. BP stable. EKG, CXR, troponin, labs ordered. will need [facility] records. To go to treatment room. <BREE Kohler - Last Filed: 07/23/22 11:22> RME - 81 yo [place] speaking female with history of DM2, CVA 2016, HTN, HLD, ILD, recent admission at [facility] for PNA for which she was discharged with 2L NC who presents to the ER from Pulmonology office for tachycardia, dizziness, and inverted t-waves. no old EKG here. she feels dizzy and weak, denies SOB or chest pain at this time.. HR 107, SpO2 100% on 2L NC. BP stable. EKG, CXR, troponin, labs ordered. will need [facility] records. To go to treatment room. <Uri Antunez MD - Last Filed: 07/23/22 15:54> Reevaluation(s) Reevaluation #1: Patient is currently feeling better. I reviewed all of her studies to this point as well as her EKG. Her outside EKG did demonstrate sinus tachycardia heart rate 103. There is certainly some poor precordial progression, left axis deviation pre are EKG is quite similar to her outpatient EKG earlier today. I will contact the patient's primary care doctor to discuss further. <Uri Antunez MD - Last Filed: 07/23/22 15:54> Time: 14:30 <Uri Antunez MD - Last Filed: 07/23/22 15:54> Reevaluation #2: Spoke with Dr. Darden, patient's primary care provider, agrees with workup at this point. Patient will be safe for discharge and follow-up assuming her orthostatic vital signs and ambulating O2 sats are stable. <Uri Antunez MD - Last Filed: 07/23/22 15:54> Time: 14:49 <Uri Antunez MD - Last Filed: 07/23/22 15:54> Reevaluation #3: Patient had negative orthostatics. Additionally, her oxygen saturation dropped to 93% with ambulation off oxygen. I discussed using oxygen only for ambulation at this time until following up with her primary care doctor or pulmonary medicine <Uri Antunez MD - Last Filed: 07/23/22 15:54> Time: 15:50 <Uri Antunez MD - Last Filed: 07/23/22 15:54> Medical Decision Making Medical Decision Making MDM Narrative: 81-year-old female presenting with abnormal EKG and lightheadedness. Patient was seen by her furrier designer for the 1st time today. She is noted to be tachycardic and lightheaded. Her EKG at pulmonary office revealed sinus rhythm heart rate 72, it is generalized T-wave inversions and flattening left axis deviation. Our EKG in the emergency room was very similar with the exception of a heart rate of 103. Chest x-ray reveals some pulmonary fibrosis which is old. The lab work so far is unremarkable. I will contact the primary care <Uri Antunez MD - Last Filed: 07/23/22 15:54> Differential Diagnosis Differential Diagnoses: The differential diagnosis associated with the presentation includes (Fibrosis, pneumonia, dehydration, electrolyte abnormality, anemia) <Uri Antunez MD - Last Filed: 07/23/22 15:54> Abnormal EKG, pulmonary fibrosis <Uri Antunez MD - Last Filed: 07/23/22 15:54> Admission/Observation Consideration of admission/observation: Escalation of care including admission/observation considered <Uri Antunez MD - Last Filed: 07/23/22 15:54> Consult Healthcare Provider Management of the patient was discussed with: Primary Care Provider <Uri Antunez MD - Last Filed: 07/23/22 15:54> Lab Data [facility] Lab Attestation statement: I reviewed the patient's lab results. <Uri Antunez MD - Last Filed: 07/23/22 15:54> Result Diagrams: 07/23/22 11:50 07/23/22 11:49 <BREE Kohler - Last Filed: 02/02/23 11:22> Labs: Lab Results 07/23/22 07/23/22 07/23/22 Range/Units 11:48 11:49 11:49 WBC (4.8-10.8) X10*3/uL RBC (4.20-5.50) X10*6/uL Hgb (12.0-16.0) g/dl Hct (37.0-47.0) % MCV (80.0-98.0) fL MCH (27.0-33.0) pg MCHC (31.0-35.0) g/dl RDW (11.0-16.0) % Plt Count (160-400) X10*3/uL MPV (9.4-12.3) fL Immature Gran % (Auto) (0.0-0.4) % Neut % (Auto) (45-73) % Lymph % (Auto) (20-40) % [place] % (Auto) (2-11) % Eos % (Auto) (0-4) % Baso % (Auto) (0-2) % Lymph # (Auto) (1.2-4.9) X10*3/uL [place] # (Auto) (0.1-1.2) X10*3/uL Eos # (Auto) (0.0-0.4) X10*3/uL Baso # (Auto) (0.0-0.2) X10*3/uL Abs Immat Gran (auto) (0.00-0.03) X10*3/uL Absolute Neuts (auto) (2.0-8.3) x10*3/uL Absolute Nucleated RBC (0.0-0.012) X10*3/uL Nucleated RBC % (auto) (0.0-0.2) /100WBC Sodium 141 (135-145) mmol/L Potassium 4.3 (3.3-5.1) mmol/L Chloride 106 (96-108) mmol/L Carbon Dioxide 25 (22-29) mmol/L Anion Gap 14 (12-20) BUN 8 L (9-16) mg/dL Creatinine 0.61 (0.5-1.4) mg/dL Estim Creat Clear Calc 63.5 Estimated GFR > 60 Random Glucose 92 (60-115) mg/dL Lactic Acid 1.5 (0.5-2.0) mmol/L Calcium 9.3 (8.4-10.2) mg/dL Magnesium 1.7 (1.6-2.6) mg/dL Total Bilirubin 0.4 (0.0-1.0) mg/dL Direct Bilirubin < 0.2 (0.0-0.5) mg/dL AST 17 (5-31) U/L ALT 12 (0-31) U/L Alkaline Phosphatase 95 (39-117) U/L Troponin I High Sens < 3.5 (<3.5-17.0) ng/L B-Natriuretic Peptide (<100) pg/mL Total Protein 7.6 (6.5-8.0) g/dL Albumin 3.9 (3.5-5.0) g/dL Procalcitonin 0.02 ng/mL TSH (0.32-4.0) uIU/mL Urine Color Urine Appearance Urine pH (5.0-9.0) Ur Specific [place] (1.005-1.025) Urine Protein (Neg-Trace) mg/dL Urine Glucose (UA) (Negative) mg/dL Urine Ketones (Negative) mg/dL Urine Blood (Negative) Urine Nitrite (Negative) Ur Leukocyte Esterase (Negative) Urine RBC (0-2) /HPF Urine WBC (0-5) /HPF Ur Squamous Epith Cells (0-2) /HPF Urine Bacteria (None Seen) Hyaline Casts (0-2) /LPF COVID-19 (LEONELA) (Negative) COVID-19 Clin Com Influenza Type A (ALICE) (Negative) Influenza Type B (ALICE) (Negative) Influenza A & B Note 07/23/22 07/23/22 07/23/22 Range/Units 11:49 11:49 11:50 WBC 11.2 H (4.8-10.8) X10*3/uL RBC 3.89 L (4.20-5.50) X10*6/uL Hgb 11.1 L (12.0-16.0) g/dl Hct 35.2 L (37.0-47.0) % MCV 90.5 (80.0-98.0) fL MCH 28.5 (27.0-33.0) pg MCHC 31.5 (31.0-35.0) g/dl RDW 13.9 (11.0-16.0) % Plt Count 608 H (160-400) X10*3/uL MPV 9.2 L (9.4-12.3) fL Immature Gran % (Auto) 0.3 (0.0-0.4) % Neut % (Auto) 63.1 (45-73) % Lymph % (Auto) 24.2 (20-40) % [place] % (Auto) 5.4 (2-11) % Eos % (Auto) 6.3 H (0-4) % Baso % (Auto) 0.7 (0-2) % Lymph # (Auto) 2.7 (1.2-4.9) X10*3/uL [place] # (Auto) 0.6 (0.1-1.2) X10*3/uL Eos # (Auto) 0.7 H (0.0-0.4) X10*3/uL Baso # (Auto) 0.1 (0.0-0.2) X10*3/uL Abs Immat Gran (auto) 0.03 (0.00-0.03) X10*3/uL Absolute Neuts (auto) 7.1 (2.0-8.3) x10*3/uL Absolute Nucleated RBC 0.000 (0.0-0.012) X10*3/uL Nucleated RBC % (auto) 0.0 (0.0-0.2) /100WBC Sodium (135-145) mmol/L Potassium (3.3-5.1) mmol/L Chloride (96-108) mmol/L Carbon Dioxide (22-29) mmol/L Anion Gap (12-20) BUN (9-16) mg/dL Creatinine (0.5-1.4) mg/dL Estim Creat Clear Calc Estimated GFR Random Glucose (60-115) mg/dL Lactic Acid (0.5-2.0) mmol/L Calcium (8.4-10.2) mg/dL Magnesium (1.6-2.6) mg/dL Total Bilirubin (0.0-1.0) mg/dL Direct Bilirubin (0.0-0.5) mg/dL AST (5-31) U/L ALT (0-31) U/L Alkaline Phosphatase (39-117) U/L Troponin I High Sens (<3.5-17.0) ng/L B-Natriuretic Peptide 29 (<100) pg/mL Total Protein (6.5-8.0) g/dL Albumin (3.5-5.0) g/dL Procalcitonin ng/mL TSH 1.51 (0.32-4.0) uIU/mL Urine Color Urine Appearance Urine pH (5.0-9.0) Ur Specific [place] (1.005-1.025) Urine Protein (Neg-Trace) mg/dL Urine Glucose (UA) (Negative) mg/dL Urine Ketones (Negative) mg/dL Urine Blood (Negative) Urine Nitrite (Negative) Ur Leukocyte Esterase (Negative) Urine RBC (0-2) /HPF Urine WBC (0-5) /HPF Ur Squamous Epith Cells (0-2) /HPF Urine Bacteria (None Seen) Hyaline Casts (0-2) /LPF COVID-19 (LEONELA) (Negative) COVID-19 Clin Com Influenza Type A (ALICE) (Negative) Influenza Type B (ALICE) (Negative) Influenza A & B Note 07/23/22 07/23/22 07/23/22 Range/Units 12:08 12:08 12:52 WBC (4.8-10.8) X10*3/uL RBC (4.20-5.50) X10*6/uL Hgb (12.0-16.0) g/dl Hct (37.0-47.0) % MCV (80.0-98.0) fL MCH (27.0-33.0) pg MCHC (31.0-35.0) g/dl RDW (11.0-16.0) % Plt Count (160-400) X10*3/uL MPV (9.4-12.3) fL Immature Gran % (Auto) (0.0-0.4) % Neut % (Auto) (45-73) % Lymph % (Auto) (20-40) % [place] % (Auto) (2-11) % Eos % (Auto) (0-4) % Baso % (Auto) (0-2) % Lymph # (Auto) (1.2-4.9) X10*3/uL [place] # (Auto) (0.1-1.2) X10*3/uL Eos # (Auto) (0.0-0.4) X10*3/uL Baso # (Auto) (0.0-0.2) X10*3/uL Abs Immat Gran (auto) (0.00-0.03) X10*3/uL Absolute Neuts (auto) (2.0-8.3) x10*3/uL Absolute Nucleated RBC (0.0-0.012) X10*3/uL Nucleated RBC % (auto) (0.0-0.2) /100WBC Sodium (135-145) mmol/L Potassium (3.3-5.1) mmol/L Chloride (96-108) mmol/L Carbon Dioxide (22-29) mmol/L Anion Gap (12-20) BUN (9-16) mg/dL Creatinine (0.5-1.4) mg/dL Estim Creat Clear Calc Estimated GFR Random Glucose (60-115) mg/dL Lactic Acid (0.5-2.0) mmol/L Calcium (8.4-10.2) mg/dL Magnesium (1.6-2.6) mg/dL Total Bilirubin (0.0-1.0) mg/dL Direct Bilirubin (0.0-0.5) mg/dL AST (5-31) U/L ALT (0-31) U/L Alkaline Phosphatase (39-117) U/L Troponin I High Sens (<3.5-17.0) ng/L B-Natriuretic Peptide (<100) pg/mL Total Protein (6.5-8.0) g/dL Albumin (3.5-5.0) g/dL Procalcitonin ng/mL TSH (0.32-4.0) uIU/mL Urine Color Yellow Urine Appearance Clear Urine pH 5.0 (5.0-9.0) Ur Specific [place] 1.010 (1.005-1.025) Urine Protein Negative (Neg-Trace) mg/dL Urine Glucose (UA) Negative (Negative) mg/dL Urine Ketones Negative (Negative) mg/dL Urine Blood Negative (Negative) Urine Nitrite Negative (Negative) Ur Leukocyte Esterase Moderate (2+) H (Negative) Urine RBC 0-2 (0-2) /HPF Urine WBC 6-10 H (0-5) /HPF Ur Squamous Epith Cells 6-10 (0-2) /HPF Urine Bacteria None Seen (None Seen) Hyaline Casts 0-2 (0-2) /LPF COVID-19 (LEONELA) Negative (Negative) COVID-19 Clin Com See Note Influenza Type A (ALICE) Negative (Negative) Influenza Type B (ALICE) Negative (Negative) Influenza A & B Note See Note <BREE Kohler - Last Filed: 07/23/22 11:22> Lab Results 07/23/22 07/23/22 07/23/22 Range/Units 11:48 11:49 11:49 WBC (4.8-10.8) X10*3/uL RBC (4.20-5.50) X10*6/uL Hgb (12.0-16.0) g/dl Hct (37.0-47.0) % MCV (80.0-98.0) fL MCH (27.0-33.0) pg MCHC (31.0-35.0) g/dl RDW (11.0-16.0) % Plt Count (160-400) X10*3/uL MPV (9.4-12.3) fL Immature Gran % (Auto) (0.0-0.4) % Neut % (Auto) (45-73) % Lymph % (Auto) (20-40) % [place] % (Auto) (2-11) % Eos % (Auto) (0-4) % Baso % (Auto) (0-2) % Lymph # (Auto) (1.2-4.9) X10*3/uL [place] # (Auto) (0.1-1.2) X10*3/uL Eos # (Auto) (0.0-0.4) X10*3/uL Baso # (Auto) (0.0-0.2) X10*3/uL Abs Immat Gran (auto) (0.00-0.03) X10*3/uL Absolute Neuts (auto) (2.0-8.3) x10*3/uL Absolute Nucleated RBC (0.0-0.012) X10*3/uL Nucleated RBC % (auto) (0.0-0.2) /100WBC Sodium 141 (135-145) mmol/L Potassium 4.3 (3.3-5.1) mmol/L Chloride 106 (96-108) mmol/L Carbon Dioxide 25 (22-29) mmol/L Anion Gap 14 (12-20) BUN 8 L (9-16) mg/dL Creatinine 0.61 (0.5-1.4) mg/dL Estim Creat Clear Calc 63.5 Estimated GFR > 60 Random Glucose 92 (60-115) mg/dL Lactic Acid 1.5 (0.5-2.0) mmol/L Calcium 9.3 (8.4-10.2) mg/dL Magnesium 1.7 (1.6-2.6) mg/dL Total Bilirubin 0.4 (0.0-1.0) mg/dL Direct Bilirubin < 0.2 (0.0-0.5) mg/dL AST 17 (5-31) U/L ALT 12 (0-31) U/L Alkaline Phosphatase 95 (39-117) U/L Troponin I High Sens < 3.5 (<3.5-17.0) ng/L B-Natriuretic Peptide (<100) pg/mL Total Protein 7.6 (6.5-8.0) g/dL Albumin 3.9 (3.5-5.0) g/dL Procalcitonin 0.02 ng/mL TSH (0.32-4.0) uIU/mL Urine Color Urine Appearance Urine pH (5.0-9.0) Ur Specific [place] (1.005-1.025) Urine Protein (Neg-Trace) mg/dL Urine Glucose (UA) (Negative) mg/dL Urine Ketones (Negative) mg/dL Urine Blood (Negative) Urine Nitrite (Negative) Ur Leukocyte Esterase (Negative) Urine RBC (0-2) /HPF Urine WBC (0-5) /HPF Ur Squamous Epith Cells (0-2) /HPF Urine Bacteria (None Seen) Hyaline Casts (0-2) /LPF COVID-19 (LEONELA) (Negative) COVID-19 Clin Com Influenza Type A (ALICE) (Negative) Influenza Type B (ALICE) (Negative) Influenza A & B Note 07/23/22 07/23/22 07/23/22 Range/Units 11:49 11:49 11:50 WBC 11.2 H (4.8-10.8) X10*3/uL RBC 3.89 L (4.20-5.50) X10*6/uL Hgb 11.1 L (12.0-16.0) g/dl Hct 35.2 L (37.0-47.0) % MCV 90.5 (80.0-98.0) fL MCH 28.5 (27.0-33.0) pg MCHC 31.5 (31.0-35.0) g/dl RDW 13.9 (11.0-16.0) % Plt Count 608 H (160-400) X10*3/uL MPV 9.2 L (9.4-12.3) fL Immature Gran % (Auto) 0.3 (0.0-0.4) % Neut % (Auto) 63.1 (45-73) % Lymph % (Auto) 24.2 (20-40) % [place] % (Auto) 5.4 (2-11) % Eos % (Auto) 6.3 H (0-4) % Baso % (Auto) 0.7 (0-2) % Lymph # (Auto) 2.7 (1.2-4.9) X10*3/uL [place] # (Auto) 0.6 (0.1-1.2) X10*3/uL Eos # (Auto) 0.7 H (0.0-0.4) X10*3/uL Baso # (Auto) 0.1 (0.0-0.2) X10*3/uL Abs Immat Gran (auto) 0.03 (0.00-0.03) X10*3/uL Absolute Neuts (auto) 7.1 (2.0-8.3) x10*3/uL Absolute Nucleated RBC 0.000 (0.0-0.012) X10*3/uL Nucleated RBC % (auto) 0.0 (0.0-0.2) /100WBC Sodium (135-145) mmol/L Potassium (3.3-5.1) mmol/L Chloride (96-108) mmol/L Carbon Dioxide (22-29) mmol/L Anion Gap (12-20) BUN (9-16) mg/dL Creatinine (0.5-1.4) mg/dL Estim Creat Clear Calc Estimated GFR Random Glucose (60-115) mg/dL Lactic Acid (0.5-2.0) mmol/L Calcium (8.4-10.2) mg/dL Magnesium (1.6-2.6) mg/dL Total Bilirubin (0.0-1.0) mg/dL Direct Bilirubin (0.0-0.5) mg/dL AST (5-31) U/L ALT (0-31) U/L Alkaline Phosphatase (39-117) U/L Troponin I High Sens (<3.5-17.0) ng/L B-Natriuretic Peptide 29 (<100) pg/mL Total Protein (6.5-8.0) g/dL Albumin (3.5-5.0) g/dL Procalcitonin ng/mL TSH 1.51 (0.32-4.0) uIU/mL Urine Color Urine Appearance Urine pH (5.0-9.0) Ur Specific [place] (1.005-1.025) Urine Protein (Neg-Trace) mg/dL Urine Glucose (UA) (Negative) mg/dL Urine Ketones (Negative) mg/dL Urine Blood (Negative) Urine Nitrite (Negative) Ur Leukocyte Esterase (Negative) Urine RBC (0-2) /HPF Urine WBC (0-5) /HPF Ur Squamous Epith Cells (0-2) /HPF Urine Bacteria (None Seen) Hyaline Casts (0-2) /LPF COVID-19 (LEONELA) (Negative) COVID-19 Clin Com Influenza Type A (ALICE) (Negative) Influenza Type B (ALICE) (Negative) Influenza A & B Note 07/23/22 07/23/22 07/23/22 Range/Units 12:08 12:08 12:52 WBC (4.8-10.8) X10*3/uL RBC (4.20-5.50) X10*6/uL Hgb (12.0-16.0) g/dl Hct (37.0-47.0) % MCV (80.0-98.0) fL MCH (27.0-33.0) pg MCHC (31.0-35.0) g/dl RDW (11.0-16.0) % Plt Count (160-400) X10*3/uL MPV (9.4-12.3) fL Immature Gran % (Auto) (0.0-0.4) % Neut % (Auto) (45-73) % Lymph % (Auto) (20-40) % [place] % (Auto) (2-11) % Eos % (Auto) (0-4) % Baso % (Auto) (0-2) % Lymph # (Auto) (1.2-4.9) X10*3/uL [place] # (Auto) (0.1-1.2) X10*3/uL Eos # (Auto) (0.0-0.4) X10*3/uL Baso # (Auto) (0.0-0.2) X10*3/uL Abs Immat Gran (auto) (0.00-0.03) X10*3/uL Absolute Neuts (auto) (2.0-8.3) x10*3/uL Absolute Nucleated RBC (0.0-0.012) X10*3/uL Nucleated RBC % (auto) (0.0-0.2) /100WBC Sodium (135-145) mmol/L Potassium (3.3-5.1) mmol/L Chloride (96-108) mmol/L Carbon Dioxide (22-29) mmol/L Anion Gap (12-20) BUN (9-16) mg/dL Creatinine (0.5-1.4) mg/dL Estim Creat Clear Calc Estimated GFR Random Glucose (60-115) mg/dL Lactic Acid (0.5-2.0) mmol/L Calcium (8.4-10.2) mg/dL Magnesium (1.6-2.6) mg/dL Total Bilirubin (0.0-1.0) mg/dL Direct Bilirubin (0.0-0.5) mg/dL AST (5-31) U/L ALT (0-31) U/L Alkaline Phosphatase (39-117) U/L Troponin I High Sens (<3.5-17.0) ng/L B-Natriuretic Peptide (<100) pg/mL Total Protein (6.5-8.0) g/dL Albumin (3.5-5.0) g/dL Procalcitonin ng/mL TSH (0.32-4.0) uIU/mL Urine Color Yellow Urine Appearance Clear Urine pH 5.0 (5.0-9.0) Ur Specific [place] 1.010 (1.005-1.025) Urine Protein Negative (Neg-Trace) mg/dL Urine Glucose (UA) Negative (Negative) mg/dL Urine Ketones Negative (Negative) mg/dL Urine Blood Negative (Negative) Urine Nitrite Negative (Negative) Ur Leukocyte Esterase Moderate (2+) H (Negative) Urine RBC 0-2 (0-2) /HPF Urine WBC 6-10 H (0-5) /HPF Ur Squamous Epith Cells 6-10 (0-2) /HPF Urine Bacteria None Seen (None Seen) Hyaline Casts 0-2 (0-2) /LPF COVID-19 (LEONELA) Negative (Negative) COVID-19 Clin Com See Note Influenza Type A (ALICE) Negative (Negative) Influenza Type B (ALICE) Negative (Negative) Influenza A & B Note See Note <Uri Antunez MD - Last Filed: 07/23/22 15:54> Independent Interpretation I performed an independent interpretation of an: EKG (Sinus tachycardia heart rate 103, left axis deviation, nonspecific T- wave changes including generalized T-wave inversions, poor precordial progression no acute ST elevations or depressions.) and Plain X-Ray (Chest x-ray reveals bilateral interstitial increased markings consistent with her history of pulmonary fibrosis) <Uri Antunez MD - Last Filed: 07/23/22 15:54> Independent Historian Clinical information obtained from an independent historian. History obtained from or confirmed by: Other (Daughter) <Uri Antunez MD - Last Filed: 07/23/22 15:54> External Record Review External record reviewed: Outpatient record and Prior outpatient radiology <Uri Antunez MD - Last Filed: 07/23/22 15:54> Tests considered The following testing was considered but not selected: CT angiogram <Uri Antunez MD - Last Filed: 07/23/22 15:54> Discharge Plan Discharge Clinical Impression: Abnormal ECG, Pulmonary fibrosis <BREE Kohler - Last Filed: 07/23/22 11:22> Patient Disposition: Home, Self-Care <BREE Kohler - Last Filed: 07/23/22 11:22> Instructions: Pulmonary Fibrosis (ED) <BREE Kohler - Last Filed: 07/23/22 11:22> Prescriptions: No Action acetaminophen 500 mg tablet 1,000 mg PO TID 90 Days Qty: 540 0RF diclofenac sodium 1 % gel 4 g topical QID Qty: 100 11RF Rx Instructions: apply to single knee, ankle, foot; for foot includes sole/toes/top of foot meloxicam 7.5 mg tablet 7.5 mg PO DAILY PRN (Reason: pain) 30 Days Qty: 30 0RF (DME) FullContact G2 blood glucose moniter starter kit See Rx Instructions .Route .MEDSUPPLY Qty: 1 0RF Rx Instructions: As directed (DME) medline alcohol prep pads 1.75x3 See Rx Instructions .Route .MEDSUPPLY Qty: 1 12RF Rx Instructions: As directed (DME) medline basic face mask See Rx Instructions .Route .MEDSUPPLY Qty: 1 11RF Rx Instructions: As directed (DME) Medline ext cuff nitrile glove sterile pairs (medium) See Rx Instructions .Route .MEDSUPPLY Qty: 1 11RF Rx Instructions: As directed (DME) Medline wall mount sharps container 3 galloon red See Rx Instructions .Route .MEDSUPPLY Qty: 1 3RF Rx Instructions: As directed (DME) medlinecontour plus bladder control pads See Rx Instructions .Route .MEDSUPPLY Qty: 90 12RF Rx Instructions: As directed duloxetine 60 mg capsule,delayed release(DR/EC) 60 mg PO DAILY 90 Days Qty: 90 2RF gabapentin 300 mg capsule 300 mg PO BEDTIME 90 Days Qty: 90 2RF metformin 750 mg tablet extended release 24 hr 750 mg PO BID 90 Days Qty: 180 2RF aspirin [Adult Aspirin Regimen] 81 mg tablet,delayed release (DR/EC) 81 mg PO DAILY 90 Days Qty: 90 3RF cholecalciferol (vitamin D3) 50 mcg (2,000 unit) capsule 50 mcg PO DAILY 90 Days Qty: 90 3RF losartan 50 mg tablet 50 mg PO DAILY 90 Days Qty: 90 3RF atorvastatin 40 mg tablet 40 mg PO QPM 90 Days Qty: 90 3RF Trulicity 0.75 mg/0.5 mL pen injector 0.75 mg subcut QWEEK 90 Days Qty: 13 3RF folic acid 1 mg tablet 1 mg PO DAILY Qty: 90 1RF tramadol 50 mg tablet 50 mg PO BEDTIME Qty: 30 0RF <BERE Kohler - Last Filed: 07/23/22 11:22> Referrals: Po,Ciro Silva MD [Primary Care Provider] - 5 days <BREE Kohler - Last Filed: 07/23/22 11:22>
[2022-07-23 11:59] LABS: Basophils Absolute Auto 0.1 X10*3/uL (0.0-0.2); Basophils Percent Auto 0.7 % (0-2); Eosinophils Absolute Auto 0.7 X10*3/uL (0.0-0.4); Eosinophils Percent Auto 6.3 % (0-4); Hematocrit 35.2 % (37.0-47.0); Hemoglobin 11.1 g/dl (12.0-16.0); Imm Gran Abs Auto 0.03 X10*3/uL (0.00-0.03); Imm Gran Pct Auto 0.3 % (0.0-0.4); Lymphocytes Absolute Auto 2.7 X10*3/uL (1.2-4.9); Lymphocytes Percent Auto 24.2 % (20-40); MANUAL DIFF FLAG NO; Mean Corpuscular HGB Conc 31.5 g/dl (31.0-35.0); Mean Corpuscular Hemoglobin 28.5 pg (27.0-33.0); Mean Corpuscular Volume 90.5 fL (80.0-98.0); Mean Platelet Volume 9.2 fL (9.4-12.3); Monocytes Absolute Auto 0.6 X10*3/uL (0.1-1.2); Monocytes Percent Auto 5.4 % (2-11); Neutrophils Absolute Auto 7.1 x10*3/uL (2.0-8.3); Neutrophils Percent Auto 63.1 % (45-73); Platelet Count 608 X10*3/uL (160-400); Red Blood Count 3.89 X10*6/uL (4.20-5.50); Red Cell Distribution Width 13.9 % (11.0-16.0); White Blood Count 11.2 X10*3/uL (4.8-10.8)
[2022-07-23 12:12] LABS: Lactic Acid 1.5 mmol/L (0.5-2.0)
[2022-07-23 12:25] LABS: B Type Natriuretic Peptide 29 pg/mL (<100); Troponin-I High Sensitivity < 3.5 ng/L (<3.5-17.0)
[2022-07-23 12:33] LABS: Anion Gap 14 (12-20); Procalcitonin 0.02 ng/mL
[2022-07-23 12:34] LABS: TSH reflex Free T4 1.51 uIU/mL (0.32-4.0)
[2022-07-23 12:35] LABS: COVID-19 Test Negative (Negative); IDNOW Serial# 16C4AD1C; IDNOW Serial# 9DB6401D; Influenza A Negative (Negative); Influenza B2 Negative (Negative)
[2022-07-23 12:38] LABS: Alanine Aminotransferase 12 U/L (0-31); Albumin Level 3.9 g/dL (3.5-5.0); Alkaline Phosphatase 95 U/L (39-117); Aspartate Amino Transferase 17 U/L (5-31); Bilirubin Direct < 0.2 mg/dL (0.0-0.5); Bilirubin Total 0.4 mg/dL (0.0-1.0); Blood Urea Nitrogen 8 mg/dL (9-16); Calcium 9.3 mg/dL (8.4-10.2); Carbon Dioxide 25 mmol/L (22-29); Chloride 106 mmol/L (96-108); Creatinine Clr Calc Pharmacy 63.5; Estimated Glomerular Filt Rate > 60; Glucose Random 92 mg/dL (60-115); Magnesium 1.7 mg/dL (1.6-2.6); Potassium 4.3 mmol/L (3.3-5.1); Sodium 141 mmol/L (135-145); Total Protein 7.6 g/dL (6.5-8.0)
[2022-07-23 13:12] LABS: Appearance Urine Clear; Color Urine Yellow; Glucose Urine UA Negative (Negative); Leukocyte Esterase Urine Moderate (2+) (Negative); Nitrite Urine Negative (Negative); UMIC TRIGGER UACC YES; Urine Blood Negative (Negative); Urine Ketones Negative (Negative); Urine Protein Negative (Neg-Trace)
[2022-07-23 13:17] LABS: Bacteria Urine None Seen (None Seen); Hyaline Casts Urine 0-2 /LPF (0-2); RBC Urine 0-2 /HPF (0-2); UACC Culture Trigger YES
== END 2022-07-23 16:08 | disposition home or self-care (01) ==
PROVIDERS: Physician Assistant; Emergency Provider Emergency Medicine; PCP Internal Medicine
DX: J84.10 Pulmonary fibrosis, unspecified (principal); R94.31 Abnormal electrocardiogram [ECG] [EKG]; R42 Dizziness and giddiness; R00.0 Tachycardia, unspecified; Z20.822 Contact with and (suspected) exposure to COVID-19; R06.00 Dyspnea, unspecified; E11.9 Type 2 diabetes mellitus without complications; I10 Essential (primary) hypertension; E78.00 Pure hypercholesterolemia, unspecified; F41.1 Generalized anxiety disorder; Z99.81 Dependence on supplemental oxygen; Z86.73 Personal history of transient ischemic attack (TIA), and cerebral infarction without residual deficits; Z79.84 Long term (current) use of oral hypoglycemic drugs; Z79.82 Long term (current) use of aspirin; Z79.02 Long term (current) use of antithrombotics/antiplatelets; Z79.899 Other long term (current) drug therapy; Z79.85 Long-term (current) use of injectable non-insulin antidiabetic drugs
CPT/HCPCS: 71045; 80048; 80076; 81001; 81003; 83605; 83735; 83880; 84145; 84443; 84484; 85025; 87040; 87086; 87502; 87635; 93005; 99202; 99284; 99285

== ENCOUNTER 2022-08-11 14:35 | Outpatient (REF) | payer OTHER, SELFPAY ==
[2022-08-11 16:24] LABS: Erythrocyte Sedimentation Rate 48 MM/HR (0-20)
[2022-08-12 14:48] LABS: Anti Nuclear Antibody Screen NEGATIVE (NEGATIVE)
[2022-08-12 14:53] LABS: IgA 349 mg/dL (70-320); IgG 1567 mg/dL (600-1540); IgM 86 mg/dL (50-300)
[2022-08-12 19:43] LABS: Immunoglobulin E 220 kU/L (<OR=114)
[2022-08-15 15:03] LABS: Angiotensin Converting Enzyme 39.8 U/L (9-67)
[2022-08-20 15:52] LABS: Asperg fumigatus Precip Abs NEGATIVE (NEGATIVE); Micropoly faeni Abs NEGATIVE (NEGATIVE); Pigeon serum Abs NEGATIVE (NEGATIVE); Saccharo pora viridis Abs NEGATIVE (NEGATIVE); Thermo candidus Abs NEGATIVE (NEGATIVE); Thermoa vulgaris #1 NEGATIVE (NEGATIVE)
== END 2022-08-11 14:36 | disposition home or self-care (01) ==
LOC: HO.LAB 14:35
PROVIDERS: PCP Internal Medicine; Visit Provider Hospitalist
DX: J84.9 Interstitial pulmonary disease, unspecified (principal); R91.8 Other nonspecific abnormal finding of lung field
CPT/HCPCS: 36415; 82164; 82784; 82785; 85652; 86038; 86039; 86331; 86606; 86609

== ENCOUNTER → 2022-08-19 09:52 | Outpatient (REF) | payer OTHER, SELFPAY ==
--- NOTE | 2022-08-19 09:58 | CA_ITS ---
Transthoracic Echocardiogram Patient (Last, First, Middle): Georgie Wiseman, Gender: Female Date of : 1940 Age: 81 Procedure Date: 08/19/2022 Procedure Type: Transthoracic Echocardiogram Location: OP Height: 160.02 cm Weight: 69.4 kg BSA: 1.73 m2 Heart Rate: bpm BP: 124 / 80 mmHg Gun Mechanic: Referring MD: Darrell Villalobos MD Senior Game Advisor: Harley Brizuela MD Symptoms: I27.20 - Pulmonary hypertension, unspecified Study Quality: Good ECG Rhythm: Sinus Conclusions: - 1. Normal LV systolic function with impaired relaxation filling pattern with elevated filling pressures 2. Normal cardiac valvular Doppler 3. Normal RV systolic pressure 4. Trivial pericardial effusion Findings Left Ventricle Normal left ventricular size and systolic function. There is mildly increased left ventricular wall thickness. The visually estimated ejection fraction is between 60-65%. Spectral Doppler is indicative of an impaired relaxation filling pattern. Elevated filling pressures. E/E prime ratio is >15, consistent with elevated filling pressures. Right Ventricle Normal right ventricular cavity size and systolic function. Atria The left atrium is normal in size. Interatrial shunt cannot be excluded. The right atrium is normal in size. Aortic Valve Normal aortic valve structure and function. There is no aortic valve stenosis. There is no aortic valve regurgitation. Mitral Valve Normal mitral valve structure and function. There is no mitral valve regurgitation. There is no mitral valve stenosis. Pulmonic Valve The pulmonic valve is likely normal. Tricuspid Valve Normal tricuspid valve structure. There is trace tricuspid valve regurgitation. The right ventricular systolic pressure is normal. The right ventricular systolic pressure is 22 mmHg. Normal right atrial pressure. There is no evidence of pulmonary hypertension. Great Vessels All visible segments of the aorta are normal in size. The pulmonary artery was not well visualized. Venous The inferior vena cava is normal in size. Inferior vena cava flow is normal. Pericardium/Pleural There is a trivial circumferential pericardial effusion. Prior Study Comparison No prior study available for comparison. Measurements 2D Linear Measurements IVSd: 1.20 0.6-0.9/0.6-1.0 cm LVIDd: 4.06 3.9-5.3/4.2-5.9 cm LVIDd Index: 2.35 2.4-3.2/2.2-3.1 cm/m2 LVIDs: 2.57 2.0-3.6 cm LVPWd: 1.15 0.7-1.1 cm Ao Root: 3.30 2.1-3.5 cm LA Diam: 3.60 2.7-3.8/3.0-4.0 cm LAIDs Index: 2.08 1.5-2.3 cm/m2 LV Mass: 204.31 67-162/88-224 g LV Mass Index: 118.10 43-95/49-115 g/m2 LVOT Diam: 2.10 3.0+(-)1.3 cm Mitral Valve MV Pk E: 0.66 MV PK A: 0.90 MV Decel Time: 158.00 E/A: 0.70 E'Lateral: 4.03 E'Medial: 3.48 E/E' Med: 19.00 E/E' Lat: 16.40 PHT: 46.00 MVA PHT: 4.78 Decel [place]: 4.19 Aortic Valve AoV Pk Konstantin: 1.33 AoV Mn Konstantin: 0.84 AoV VTI: 0.28 AoV Pk Grad: 7.00 Aov Mn Grad: 3.00 HAI Cont.VTI: 2.67 LVOT LVOT Pk Konstantin: 0.89 LVOT Mn Konstantin: 0.57 LVOT VTI: 0.21 LVOT Pk Grad: 3.00 LVOT Mn Grad: 2.00 LVOT Diam: 2.10 LVOT Area: 3.46 Diastolic Function MV Pk E: 0.66 MV Pk A: 0.90 E/A: 0.70 E'Medial: 3.48 E/E' Med: 19.00 E' Laterial: 4.03 E/E' Lat: 16.40 Right Ventricle TAPSE (mm): 22.00 TVS' Konstantin: 15.00 Tricuspid Valve TR Pk Konstantin: 2.19 TR Pk Grad: 19.00 RA Press: 3.00 RVSP: 22.00 Great Vessels Aorta Ao Root-2D: 3.30 2.0-3.7 cm Ao Asc: 3.10 2.1-3.4 cm Pulmonary Valve PV Pk Konstantin: 0.76 Peak PV Grad: 2.00 Updated in Other Vendor System with Status of Final Harley Brizuela MD electronically signed on 08/20/2022 4:32:46 PM with status of Final
== END ==
LOC: HO.CARD 09:52
PROVIDERS: PCP Internal Medicine; Visit Provider Hospitalist
DX: I27.20 Pulmonary hypertension, unspecified (principal)
CPT/HCPCS: 93306

== ENCOUNTER → 2022-08-21 09:58 | Outpatient (BNVA) | payer OTHER, SELFPAY | PROVIDERS: PCP Internal Medicine; Visit Provider Hospitalist | DX: J96.20 Acute and chronic respiratory failure, unspecified whether with hypoxia or hypercapnia (principal); J84.10 Pulmonary fibrosis, unspecified; J18.9 Pneumonia, unspecified organism; Z99.81 Dependence on supplemental oxygen | CPT/HCPCS: 99212 ==

== ENCOUNTER → 2022-10-23 09:49 | Outpatient (BNVA) | payer OTHER, SELFPAY | PROVIDERS: PCP Internal Medicine; Visit Provider Hospitalist | DX: J96.20 Acute and chronic respiratory failure, unspecified whether with hypoxia or hypercapnia (principal); J84.10 Pulmonary fibrosis, unspecified; J18.9 Pneumonia, unspecified organism | CPT/HCPCS: 94618; 99212 ==

== ENCOUNTER 2023-01-11 14:19 | Outpatient (REF) | payer OTHER, SELFPAY | END 2023-01-11 14:20 | disposition home or self-care (01) | LOC: HO.RESP 14:19 | PROVIDERS: PCP Internal Medicine; Visit Provider Hospitalist | DX: Z13.89 Encounter for screening for other disorder (principal) ==

== ENCOUNTER 2023-01-26 11:11 | Outpatient (AMB) | payer OTHER, SELFPAY ==
--- NOTE | 2023-01-26 11:14 | A.OFFPC_ITS ---
Intake Visit Reasons: dm/ 3month f/u Allergies No Known Allergies Allergy (Verified 01/26/23 11:14) Medication List - Last Reconciled 01/26/23 by Ciro Daniel MD [[employer] G2 blood glucose moniter starter kit As directed] acetaminophen 1,000 mg (2 x 500 mg) PO TID 90 days aspirin (Adult Aspirin Regimen) 81 mg PO DAILY 90 days atorvastatin 40 mg PO QPM 90 days cholecalciferol (vitamin D3) 50 mcg PO DAILY 90 days diclofenac sodium 1% 4 grams topical QID dulaglutide (Trulicity) 0.75 mg (0.5 mL) subcut QWEEK 90 days duloxetine 60 mg PO DAILY 90 days folic acid 1 mg PO DAILY gabapentin 300 mg PO BEDTIME 90 days losartan 50 mg PO DAILY 90 days [medline alcohol prep pads 1.75x3 As directed] [medline basic face mask As directed] [Medline ext cuff nitrile glove sterile pairs (medium) As directed] [Medline wall mount sharps container 3 galloon red As directed] [medlinecontour plus bladder control pads As directed] metformin ER 750 mg PO BID 90 days [O2 Gas System Home Transfill Unit ([id number]) As directed] Oxygen Home Use As directed prednisone 10 mg PO DAILY tramadol 50 mg PO BEDTIME Tobacco use date assessed: 07/15/22 Fall risk assessment: No Falls in past year Last assessed Fall Risk: 01/26/23 Dental Screening Dental Screen Date: 01/26/23 Did you have a dental visit in the last 12 months?: No Did you have a dental problem in the last 6 months where you did not have access to dental care?: No Was dental information given to patient?: No HPI dm/ 3month f/u HPI Details 82-year-old female with diabetes mellitus hypertension hypercholesterolemia CVA interstitial lung disease now coming in for follow-up. Patient was last seen in September 2022. Colonoscopy is up-to-date bone density due later this year mammogram is due PE patient is here for follow-up. Review of the notes October 2022 follows up with Pulmonary with breathing problem tolerating prednisone 10 mg once a day patient was in the emergency room for chest discomfort in September patient on oxygen conserving device 4 L per pulse is patient was advised pulmonary function test and a chest x-ray. Kellie 99 interpret [facility] Medical History (Updated 10/14/22 @ 12:34 by Ciro Daniel MD) Acute and chronic respiratory failure CVA (cerebral vascular accident) Cystocele Generalized anxiety disorder Hypercholesterolemia Hypertension Insomnia Interstitial pulmonary fibrosis Lumbar spinal stenosis Osteopenia Pneumonitis Type 2 diabetes mellitus with hyperglycemia Urinary incontinence Surgical History Hx of section Social History Housing: Apartment Alcohol intake: never Patient Tobacco Use Status: Never used Tobacco e-Cigarette/Vaping Use: Never Used Second Hand Smoke Exposure: No service: No Current occupational status: retired Cognitive needs: Yes ([employer] at home) Hearing needs: No Vision needs: Yes Questionnaire PHQ-9 Over the last 2 weeks, how often have you been bothered by any of the following problems? 1. Little interest or pleasure in doing things: not at all 2. Feeling down, depressed, or hopeless: not at all 3. Trouble falling or staying asleep, or sleeping too much: not at all 4. Feeling tired or having little energy: not at all 5. Poor appetite or overeating: not at all 6. Feeling bad about yourself - or that you are a failure or have let yourself or your family down: not at all 7. Trouble concentrating on things, such as reading the newspaper or watching television: not at all 8. Moving or speaking so slowly that other people could have noticed. Or the opposite - being so fidgety or restless that you have been moving around a lot more than usual: not at all 9. Thoughts that you would be better off or of hurting yourself in some way: not at all Total score: 0 Depression Screening Interpretation: Negative Source: Developed by Drs. Farzad Mcqueen, Dianna Oscar, Jono Cuadra and colleagues, with an educational diallo from [employer]. Thrive Questionnaire Date Thrive assessed: 07/15/22 AUDIT C Alcohol Use Questionnaire (AUDIT-C) 1. How often do you have a drink containing alcohol?: Never 3. How often do you have six or more drinks on one occasion?: Never Total Score: 0 RADHA-7 AMB Questionnaire RADHA-7 Date RADHA - 7 assessed: 07/15/22 Source: Developed by Drs. Farzad Mcqueen, Dianna Oscar, Jono Cuadra and colleagues, with an educational diallo from [employer]. Physical exam (Primary Care) Tobacco/Smoking Status: Tobacco use Status Tobacco use date assessed 07/15/22 01/26/23 11:15 Patient Tobacco Use Status Never used Tobacco 01/26/23 11:15 e-Cigarette/Vaping Use Never Used 01/26/23 11:15 PHQ-9: PHQ-9 Score PHQ-9: Total score 0 01/26/23 11:15 Depression Screening Interpretation: Negative Thrive Assessment: Date of Thrive Assessment Date Thrive assessed 07/15/22 01/26/23 11:15 Telehealth Telehealth Location of provider rendering services: practice address Location of patient: address on file Patient Identification confirmed using: Name, : Yes Telehealth method: video (Kellie) Patient verbally consented to treatment: Yes Patient verbally consented to billing insurance company: Yes Patient informed of any privacy concerns related to visit: Yes Assessment and Plan Assessment & Plan (1) Type 2 diabetes mellitus with hyperglycemia: Code(s): E11.65 - Type 2 diabetes mellitus with hyperglycemia Qualifiers: Diabetes mellitus intermediate designer insulin use: without longterm use Qualified Code(s): E11.65 - Type 2 diabetes mellitus with hyperglycemia Plan: Decrease the amount of carbohydrate intake, pasta, bread, rice and potatoes are all sugar and that is aside from all the sweet stuff, remember that fruits are good but they are Sweet also. Hemoglobin A1c goal of less than 7.0 patient is taking Trulicity once a week metformin 750 mg twice a day patient though is on prednisone for the interstitial lung disease (2) Hypercholesterolemia: Code(s): E78.00 - Pure hypercholesterolemia, unspecified Plan: Avoid fried foods, chicken skin, eggs, butter margarine, pastries and meat. Be it pork or beef they have a lot of cholesterol LDL goal of less than 70 and triglyceride of less than 150 patient is on atorvastatin 40 mg once a day (3) Hypertension: Comment: September 2014 echocardiogram normal left ventricular size ejection fraction 65-75% no wall motion abnormalities EKG 02/05/2020 normal sinus rhythm, left axis susan ation nonspecific ST T wave changes June 2022 nuclear stress test no evidence of ski me a by EKG, myocardial perfusion scan normal perfusion left ventricular ejection fraction 69% Code(s): I10 - Essential (primary) hypertension Qualifiers: Hypertension type: essential hypertension Qualified Code(s): I10 - Essential (primary) hypertension Plan: Continue with blood pressure medication. Decrease salt intake and exercise patient takes losartan 50 mg once a day (4) CVA (cerebral vascular accident): Comment: Left parietal September 2015 Code(s): I63.9 - Cerebral infarction, unspecified Plan: Control the cholesterol, weight, blood pressure, diabetes (5) Interstitial lung disease: Comment: June 2022 Code(s): J84.9 - Interstitial pulmonary disease, unspecified Plan: Patient continues to follow-up with Pulmonary and the presently on oxygen as well as prednisone. Discussed about oxygen to wear 2 L in the house 4 L outside Orders: Orders Lipid Panel Today E11.65 - Type 2 diabetes mellitus with hyperglycemia, E78.00 - Pure hypercholesterolemia, unspecified Vitamin D 25-OH Total Today E11.65 - Type 2 diabetes mellitus with hyperglycemia Microalbumin, Random (w Creat) Today E11.65 - Type 2 diabetes mellitus with hyperglycemia XR DEXA axial skeleton 3 Months M81.0 - Age-related osteoporosis without current pathological fracture, M85.80 - Other specified disorders of bone density and structure, unspecified site Hemoglobin A1c Today E11.65 - Type 2 diabetes mellitus with hyperglycemia Coding Level of Care Code Est Pt Level 4 (22820) Diagnoses Type 2 diabetes mellitus with hyperglycemia E11.65 Diabetes mellitus intermediate designer insulin use: without intermediate designer use Hypercholesterolemia E78.00 Hypertension I10 Hypertension type: essential hypertension CVA (cerebral vascular accident) I63.9 Interstitial lung disease J84.9
== END 2023-01-26 12:19 | disposition home or self-care (01) ==
LOC: HO.HMGH 11:11
PROVIDERS: PCP Internal Medicine; Visit Provider Internal Medicine
DX: E11.65 Type 2 diabetes mellitus with hyperglycemia (principal); I10 Essential (primary) hypertension; Z86.73 Personal history of transient ischemic attack (TIA), and cerebral infarction without residual deficits; J84.9 Interstitial pulmonary disease, unspecified; E78.00 Pure hypercholesterolemia, unspecified
CPT/HCPCS: 99214

== ENCOUNTER 2023-02-26 10:13 | Outpatient (AMB) | payer OTHER, SELFPAY ==
[2023-02-26 10:20] VITALS: PULSE 89; O2SAT 89; BMI 23.5
--- NOTE | 2023-02-26 10:20 | MHC.OFFVIS ---
Intake Vital Signs 02/26/23 10:20 Height 5 ft 4 in Weight 136 lb 14.513 oz BMI 23.5 Pulse 89 Pulse Source Pulse Oximeter Pulse Oximetry (%) 89 L Oxygen Delivery Method Room Air Intake Visit Reasons: COPD Allergies No Known Allergies Allergy (Verified 01/26/23 11:14) HPI HPI Comments History of Present Illness Details The patient is an 82 year woman presenting with worsening respiratory capacity now on oxygen supplementation. Apparently the patient had a CVA back in 2016. She was admitted to [facility]. Which she was there she did undergo a CT scan of the chest demonstrating interstitial lung changes as well as lymphadenopathy. The patient did follow-up with her primary care doctor which was placed at [facility]. Therefore she had a repeat CT scan again demonstrating the interstitial lung changes although the lymphadenopathy appear to have improved. We were able to look at that CT scan from 2015 from [facility]. The patient did then get a referral to Hematology Oncology due to significant thrombocytosis in the on myopathy initially. The workup was unremarkable. Patient ultimately was in her usual state health until recently when she started developing worsening shortness of breath for the last month. She started also developing some intermittent chest discomfort. Finally her family encouraged her to go to the ER and finally she did. She was seen at [facility] which had a repeat CT scan. Demonstrating a persistent interstitial changes in addition to the lymphadenopathy. I do not have the imaging studies to review. Patient was admitted to the hospital treated for pneumonia and also given prednisone. She was tested positive for COVID. Subsequently the patient was discharged on oxygen. She did follow-up with her primary care doctor. There she had a chest x-ray done at the [facility]. The patient did have a chest x-ray which I personally reviewed demonstrating evidence of pneumonitis superimposed on her interstitial lung disease. Therefore the patient is referred to Pulmonary. Currently she is on continues oxygen at 2 L. Although she is still very short of breath with minimal activity. She has also been having intermittent chest pains. During the visit we did go for brief walking and heart rate went up to about 130. During that walk the patient felt dizzy and like she was going to ?pass out?. At that moment we sat her down she regained her strength and heart rate did slow down to about 105. Weight we were able to go back to the room. I which point we did an EKG which demonstrated significant ST changes in the precordial leads suggestive of ischemia. Based on the fact the patient was crease syncopal also had intermittent chest discomfort in unstable vital signs with significant tachycardia will go ahead and refer the patient back to the ER for further evaluation. 08/21/2022 the patient is here for a pulmonary follow-up visit. The patient overall is doing well. She did have her echocardiogram which we personally reviewed. No significant pulmonary hypertension which is reassuring. She does have some diastolic dysfunction. She did start the prednisone and she is tolerating it well. Denies any significant adverse effects. She does complain of some blurred nest of the vision and some thirst. She her family does have a concomitant available in the check her sugar at times. He does 4, will be on the prednisone 10 mg daily to treat for the interstitial lung disease and will follow-up with an x-ray and 2 months. If the patient has any progression of the interstitial lung disease then we can consider antifibrotic agents. The patient continues use the oxygen with good effect. Overall she is doing better. 10/23/2022 the patient is here for a pulmonary follow-up visit. The patient overall has been doing well. She is tolerating the prednisone 10 mg daily. She did have any visit to the ER at [facility] because of chest discomfort. She was subsequently discharged. She continues use the prednisone at 10 mg daily. We did taken for 6 minutes walk testing the patient did fairly decent on a conserving device. She that she does need better portability because she cannot he handed her the tanks. Therefore going to request a portable oxygen concentrator from her [employer]. In the meantime they can provide her with a conserving valve and smaller tank so she can carry them easier. Will go ahead and plan to repeat her pulmonary function studies which she comes back in 3-4 months. And subsequently after that will need further imaging studies. If we see any progression of the pulmonary fibrosis will consider antifibrotic agents. 02/26/2023 the patient is here for a pulmonary follow-up visit. The patient continues to have significant dyspnea on exertion. she has been using the oxygen. When she leaves the house she is using her portable oxygen concentrator. She is currently using at 2 L pulse. I did advise her to increase it to 4 L pulse when she is ambulating. Sometimes she does forget to breathe through her nose and does not activate the pulse conserving device. I did talk to about the importance about that. In the meantime the patient still desaturates on a brief walking oximetry. Even on 4 L she decreases down to the high 80s. Although the portable concentrator does provide her some relief when it comes to been able to have better portability if her condition worsens she may need to go back to continues oxygen. The patient had a CT scan back in the fall 2021. will request a repeat CT scan to see if there is any evidence of any progression of the pulmonary fibrosis. The patient did attempt to do pulmonary function studies but she was not able to. If the patient demonstrates worsening fibrosis then will treat her with antifibrotic agents for progressive disease. If the patient has any problems or concerns prior to the next visit she is to call for an earlier assessment. PFSH Medical History Chronic respiratory failure Acute and chronic respiratory failure Pneumonitis Generalized anxiety disorder Urinary incontinence CVA (cerebral vascular accident) Osteopenia Lumbar spinal stenosis Interstitial pulmonary fibrosis Insomnia Cystocele Hypertension Hypercholesterolemia Type 2 diabetes mellitus with hyperglycemia Surgical History Hx of section Social History Housing: Apartment Alcohol intake: never Patient Tobacco Use Status: Never used Tobacco e-Cigarette/Vaping Use: Never Used Second Hand Smoke Exposure: No service: No Current occupational status: retired Cognitive needs: Yes ([employer] at home) Hearing needs: No Vision needs: Yes Review of Systems Const Reports fatigue Eyes Denies change in vision ENT Reports Normal hearing present, Denies change in voice and Denies dizziness Card Denies chest pain, Denies dyspnea and Reports dyspnea on exertion Resp Reports cough, Denies dyspnea, Reports dyspnea on exertion and Denies wheezing GI Reports no additional complaints Musc Reports no additional complaints Skin/Breast Denies rash Neuro Reports Normal hearing present and Denies dizziness Endo Reports fatigue Paco/Lymph Denies easy bruising and Denies lymphadenopathy Aller/Immun Denies wheezing Physical Exam Vital Signs: Last Vital Signs Pulse 89 02/26/23 10:20 Pulse Ox 89 L 02/26/23 10:20 Oxygen Delivery Method Room Air 02/26/23 10:20 BMI result Body Mass Index 23.5 Const General: alert HEENT Head: Yes atraumatic Eyes General: appearance normal, both eyes and all related structures Conjunctivae: conjunctivae normal Neck Neck: Yes supple Chest Chest palpation & inspection: normal inspection of the chest Resp Auscultation: rales bilateral in the mid lung francis and diminished lung sounds Cardio Rate: tachycardic Rhythm: regular rhythm Heart sounds: S1 normal heart sound present and S2 normal heart sound present GI Auscultation: normal bowel sounds Skin General skin exam: no rashes or lesions noted Neuro Cranial nerves: Yes Normal hearing present Extrem General: Yes no clubbing, cyanosis or edema Immunizations pneumoc 20-tc conj-dip cr(PF) 0.5 mL IM syringe Performing Provider: Darrell Villalobos MD Performing Location: [facility] Administered by: Anastasiya Mccarty LPN on 02/26/23 11:09 Dose Route Admin Location Dispensed Lot Number Expiration Date NDC [employer] Handler 0.5 mL IM Right Deltoid 0.5 mL [id number] 04/20/24 4648-3528-53 [email or web address] VIS Given Date VIS Provided VIS Publication Date 02/26/23 Single Vaccine 22 Eligibility Eligibility Date Funding Source Not [facility] Eligible 02/26/23 Private Assessment & Plan Assessment & Plan (1) Chronic respiratory failure: Code(s): J96.10 - Chronic respiratory failure, unspecified whether with hypoxia or hypercapnia Qualifiers: Respiratory failure complication: hypoxia Qualified Code(s): J96.11 - Chronic respiratory failure with hypoxia (2) Pneumonitis: Code(s): J18.9 - Pneumonia, unspecified organism (3) Interstitial lung disease: Comment: June 2022 Code(s): J84.9 - Interstitial pulmonary disease, unspecified Plan continue Prednisone 10mg continue oxygen supplementation: 4L/pulse with activity when out of the house. 2L continues while in the house CT chest PFTs-could not complete consider anti fibrotic agent if further progression F/U 4 months Orders: Orders CT chest wo IV con 02/26/23 J18.9 - Pneumonia, unspecified organism, J84.9 - Interstitial pulmonary disease, unspecified Pneumococcal 20 Immunization 02/26/23 Z23 - Encounter for immunization Coding Level of Care Code Est Pt Level 4 (52883) Diagnoses Chronic respiratory failure with hypoxia J96.11 Respiratory failure complication: hypoxia Pneumonitis J18.9 Interstitial lung disease J84.9 Time Spent (min) 18
== END 2023-02-26 11:10 | disposition home or self-care (01) ==
PROVIDERS: PCP Internal Medicine; Visit Provider Hospitalist
DX: J96.11 Chronic respiratory failure with hypoxia (principal); J18.9 Pneumonia, unspecified organism
CPT/HCPCS: 99214

== ENCOUNTER → 2023-02-26 10:13 | Outpatient (BNVA) | payer OTHER, SELFPAY | PROVIDERS: Visit Provider Hospitalist | DX: J84.9 Interstitial pulmonary disease, unspecified (principal); J18.9 Pneumonia, unspecified organism; J96.11 Chronic respiratory failure with hypoxia; Z23 Encounter for immunization | CPT/HCPCS: 90471; 90677; 99212 ==

== ENCOUNTER 2023-04-20 09:32 | Outpatient (REF) | payer OTHER, SELFPAY ==
--- NOTE | ~2023-04-20 | CT_ITS ---
EXAMINATION: CT CHEST WITHOUT CONTRAST CLINICAL INFORMATION: Pneumonia. Interstitial lung disease. Pneumonitis. COMPARISON: Previous chest x-rays June and July 2022 TECHNIQUE: Multidetector volumetric CT imaging of the chest was done. Axial MIP volume rendering provided. Sagittal and coronal reformatted images were obtained. This CT examination was performed using dose optimization techniques as appropriate, variously including the following: *Automated exposure control *Adjustment of mA and/or kV according to patient size (this includes techniques or standardized protocols for targeted exams where dose is matched to indication/reason for exam; i.e. extremities or head) *Use of iterative reconstruction technique DLP: 125 mGy-cm FINDINGS: LUNGS: There is evidence of severe interstitial lung disease with increased reticulation, increased attenuation and traction bronchiolectasis at the lung bases. This is seen diffusely throughout the lungs but greatest at the lung bases. No honeycombing seen. No endobronchial or endotracheal lesion. No evidence of pneumonia or acute alveolitis. No pulmonary nodule. MEDIASTINUM: Prominent mediastinal lymph nodes. Largest lymph nodes are a right pretracheal lymph node measuring 1.5 cm and subcarinal lymph node measuring 1.6 cm. Evaluation for hilar adenopathy is limited without IV contrast. Normal heart size. No pericardial effusion. No coronary artery calcification. Upper normal pulmonary arteries, main pulmonary artery measuring 3 cm. CORONARY ARTERY CALCIFICATION: None visualized on this study. PLEURA: There is no pleural effusion. No pleural mass or thickening. AXILLA: Surgical clip or marker seen in the left medial breast. No chest wall mass or enlarged axillary lymph nodes. UPPER ABDOMEN: Calcifications in the dome of the liver. OSSEOUS STRUCTURES: Degenerative changes of the spine. CT/CT chest wo IV con IMPRESSION: Severe interstitial lung disease. No evidence of acute alveolitis or pneumonitis. Prominent mediastinal lymph nodes. Fleischner guidelines were followed.
== END 2023-04-20 09:33 | disposition home or self-care (01) ==
LOC: HO.CT 09:32
PROVIDERS: PCP Internal Medicine; Visit Provider Hospitalist
DX: J84.9 Interstitial pulmonary disease, unspecified (principal)
CPT/HCPCS: 71250

== ENCOUNTER 2023-04-27 08:56 | Outpatient (REF) | payer OTHER, SELFPAY ==
[2023-04-27 09:59] LABS: Basophils Absolute Auto 0.1 X10*3/uL (0.0-0.2); Basophils Percent Auto 0.5 % (0-2); Eosinophils Absolute Auto 0.8 X10*3/uL (0.0-0.4); Eosinophils Percent Auto 5.5 % (0-4); Hematocrit 35.3 % (37.0-47.0); Imm Gran Abs Auto 0.11 X10*3/uL (0.00-0.03); Imm Gran Pct Auto 0.7 % (0.0-0.4); Immature Retic Fraction 9.4 % (3.0-15.9); Lymphocytes Absolute Auto 5.2 X10*3/uL (1.2-4.9); Lymphocytes Percent Auto 34.7 % (20-40); MANUAL DIFF FLAG SCAN; Mean Corpuscular HGB Conc 31.2 g/dl (31.0-35.0); Mean Corpuscular Hemoglobin 28.6 pg (27.0-33.0); Mean Corpuscular Volume 91.9 fL (80.0-98.0); Mean Platelet Volume 9.6 fL (9.4-12.3); Monocytes Absolute Auto 0.9 X10*3/uL (0.1-1.2); Monocytes Percent Auto 6.2 % (2-11); Neutrophils Absolute Auto 7.8 x10*3/uL (2.0-8.3); Neutrophils Percent Auto 52.4 % (45-73); Platelet Count 623 X10*3/uL (160-400); Red Blood Count 3.84 X10*6/uL (4.20-5.50); Red Cell Distribution Width 14.6 % (11.0-16.0); Retic HGB Equivalent 32.9 pg (30.0-35.0); Reticulocyte Percent 1.6 % (0.5-1.8); Reticulocytes Absolute 0.061 X10*6/uL (0.026-0.095); SCAN SMEAR FLAG 1; White Blood Count 14.9 X10*3/uL (4.8-10.8)
[2023-04-27 10:12] LABS: Appearance Urine Clear; Color Urine Yellow; Glucose Urine UA >=1000 mg/dL (Negative); Leukocyte Esterase Urine Moderate (2+) (Negative); Nitrite Urine Negative (Negative); PH 5.5 (5.0-9.0); UMIC TRIGGER UA YES; Urine Blood Negative (Negative); Urine Ketones Negative (Negative); Urine Protein Negative (Neg-Trace)
[2023-04-27 10:15] LABS: Bacteria Urine 2+ (None Seen); Hyaline Casts Urine 0-2 /LPF (0-2); RBC Urine 0-2 /HPF (0-2); WBC Urine 21-50 /HPF (0-5)
[2023-04-27 10:41] LABS: Creatinine Urine 105.36 mg/dL; Microalbum/Creatinine Ratio Ur 18.9 ug/mg cr (<30)
[2023-04-27 10:45] LABS: Alanine Aminotransferase 16 U/L (0-31); Albumin Level 3.8 g/dL (3.5-5.0); Alkaline Phosphatase 68 U/L (39-117); Anion Gap 15 (12-20); Aspartate Amino Transferase 17 U/L (5-31); Bilirubin Total 0.7 mg/dL (0.0-1.0); Blood Urea Nitrogen 9 mg/dL (9-16); Calcium 9.5 mg/dL (8.4-10.2); Carbon Dioxide 28 mmol/L (22-29); Chloride 103 mmol/L (96-108); Cholesterol 120 mg/dL (<200); Estimated Glomerular Filt Rate > 60; Glucose Random 224 mg/dL (60-115); HDL Cholesterol 43 mg/dL (>40); Iron 75 mcg/dL (30-160); LDL Cholesterol Calculated 59 mg/dL (<100); Percent Iron Saturation 30 % (15-50); Potassium 3.6 mmol/L (3.3-5.1); Sodium 142 mmol/L (135-145); Total Iron Binding Capacity 253 mcg/dL (228-428); Total Protein 7.8 g/dL (6.5-8.0); Triglycerides 94 mg/dL (<150); Unsaturated Iron Binding 178 ug/dL
[2023-04-27 10:50] LABS: Ferritin 40 ng/mL (10-250); Free T4 (Free Thyroxine) 0.93 ng/dL (0.71-1.85); Thyroid Stimulating Hormone 2.01 uIU/mL (0.32-4.0); Vitamin D 25-OH Total 41.5 ng/mL (>30)
[2023-04-27 10:56] LABS: SLIDE REVIEW VERIFIED
[2023-04-27 11:02] LABS: Estimated Average Glucose 249 mg/dL; Hemoglobin A1c % 10.3 % (<6.0)
[2023-04-27 11:07] LABS: Folate 12.8 ng/mL (> or = 4.0); Vitamin B12 376 pg/mL (200-900)
== END 2023-04-27 08:57 | disposition home or self-care (01) ==
LOC: HO.LAB 08:56
PROVIDERS: PCP Internal Medicine; Visit Provider Internal Medicine
DX: E11.65 Type 2 diabetes mellitus with hyperglycemia (principal); E78.00 Pure hypercholesterolemia, unspecified; M85.80 Other specified disorders of bone density and structure, unspecified site; E55.9 Vitamin D deficiency, unspecified
CPT/HCPCS: 36415; 80053; 80061; 81001; 82043; 82306; 82570; 82607; 82728; 82746; 83036; 83540; 84439; 84443; 85025; 85045

== ENCOUNTER 2023-04-27 09:29 | Outpatient (AMB) | payer OTHER, SELFPAY ==
--- NOTE | 2023-04-27 09:38 | A.OFFPC_ITS ---
Vital Signs 3 04/27/23 10:00 Height 5 ft 4 in Weight 133 lb 6.075 oz BMI 22.9 BP 102/58 L Blood Pressure Location Lt brachial Position Sitting Pulse 98 Pulse Source Pulse Oximeter Pulse Oximetry (%) 97 Oxygen Delivery Method Nasal Cannula Intake Visit Reasons: lower abd pain Intake Note: Pt is here RLQ pain radiating to the lower back pain. Extruding Press Adjuster Required: No Accompanied by: Daughter Allergies No Known Allergies Allergy (Verified 04/27/23 10:13) Medication List - Last Reconciled 04/27/23 by Jovanni Hernandez PA-C [[employer] blood glucose moniter starter kit As directed] acetaminophen 1,000 mg (2 x 500 mg) PO TID 90 days aspirin (Adult Aspirin Regimen) 81 mg PO DAILY 90 days atorvastatin 40 mg PO QPM 90 days cholecalciferol (vitamin D3) 50 mcg PO DAILY 90 days diclofenac sodium 1% 4 grams topical QID dulaglutide (Trulicity) 0.75 mg (0.5 mL) subcut QWEEK 90 days duloxetine 60 mg PO DAILY 90 days folic acid 1 mg PO DAILY gabapentin 300 mg PO BEDTIME 90 days incontinence pad, liner, disp As directed losartan 50 mg PO DAILY 90 days [medline alcohol prep pads 1.75x3 As directed] [medline basic face mask As directed] [Medline ext cuff nitrile glove sterile pairs (medium) As directed] [Medline wall mount sharps container 3 galloon red As directed] [medlinecontour plus bladder control pads As directed] metformin ER 750 mg PO BID 90 days [O2 Gas System Home Transfill Unit ([id number]) As directed] Oxygen Home Use As directed Tobacco use date assessed: 07/15/22 Fall risk assessment: No Falls in past year Last assessed Fall Risk: 04/27/23 Dental Screening Dental Screen Date: 04/27/23 Did you have a dental visit in the last 12 months?: No Did you have a dental problem in the last 6 months where you did not have access to dental care?: No Was dental information given to patient?: No HPI lower abd pain 2 HPI0 Details Patient is an 82-year-old female here today for problem visit. This is the 1st time I am meeting this 82-year-old female with a past medical history significant for interstitial lung disease, type 2 diabetes, CVA, hyperlipidemia, hypertension. She has been experiencing some severe right lower abdominal pain and lower back pain over the last over the last 3 days. Urinalysis was done today that did show white blood cells and 2+ bacteria. Does report feeling warm, Though no notable fevers. She denies any urinary frequency, dysuria or diarrhea. [facility], [facility] Medical History Chronic respiratory failure Acute and chronic respiratory failure Pneumonitis Generalized anxiety disorder Urinary incontinence CVA (cerebral vascular accident) Osteopenia Lumbar spinal stenosis Interstitial pulmonary fibrosis Insomnia Cystocele Hypertension Hypercholesterolemia Type 2 diabetes mellitus with hyperglycemia Surgical History Hx of section Social History Housing: Apartment Alcohol intake: never Patient Tobacco Use Status: Never used Tobacco e-Cigarette/Vaping Use: Never Used Second Hand Smoke Exposure: No service: No Current occupational status: retired Cognitive needs: Yes ([employer] at home) Hearing needs: No Vision needs: Yes Questionnaire Thrive Questionnaire Date Thrive assessed: 07/15/22 RADHA-7 AMB Questionnaire RADHA-7 Date RADHA - 7 assessed: 07/15/22 Source: Developed by Drs. Farzad Mcqueen, Dianna Oscar, Jono Cuadra and colleagues, with an educational diallo from [employer]. Review of Systems Const Denies headache(s) Eyes Denies loss of vision ENT Denies vertigo, Denies dizziness, Denies headache(s) and Denies sore throat Card Denies chest pain, Denies leg edema and Denies lightheadedness Resp Denies cough, Denies hemoptysis and Denies wheezing GI Denies abdominal pain, Denies melena, Denies constipation, Denies diarrhea and Denies vomiting Denies urinary frequency, Denies dysuria and Denies urinary urgency Musc Denies arthralgias, Denies joint swelling, Denies numbness and Denies tingling Neuro Denies Abnormal speech present, Denies behavioral changes, Denies vertigo, Denies dizziness, Denies headache(s), Denies loss of vision, Denies memory loss, Denies numbness and Denies tingling Psych Denies anxiety, Denies behavioral changes, Denies depression, Denies memory loss and Denies panic attacks Paco/Lymph Denies easy bleeding and Denies easy bruising Aller/Immun Denies wheezing Physical exam (Primary Care) Vital Signs: Last Vital Signs Pulse 98 04/27/23 10:00 BP 102/58 L 04/27/23 10:00 Pulse Ox 97 04/27/23 10:00 Oxygen Delivery Method Nasal Cannula 04/27/23 10:00 BMI result Body Mass Index 22.9 Tobacco/Smoking Status: Tobacco use Status Tobacco use date assessed 07/15/22 04/27/23 09:39 Patient Tobacco Use Status Never used Tobacco 04/27/23 09:39 e-Cigarette/Vaping Use Never Used 04/27/23 09:39 Thrive Assessment: Date of Thrive Assessment Date Thrive assessed 07/15/22 04/27/23 09:39 Const General: healthy appearing, no acute distress, alert and awake Nutritional Appearance: well nourished Orientation/consciousness: oriented to person, oriented to place and oriented to time HENMT Ears: TM's normal bilaterally General nose exam: Normal nasal mucous membranes and turbinates present Eyes Conjunctivae: conjunctivae normal Sclerae: sclerae normal Pupils: Equal, round and reactive pupils present Neck Neck: Yes no lymphadenopathy and Yes no JVD Thyroid: Thyroid normal Carotids: no bruits Resp Effort & Inspection: normal respiratory effort and not tachypneic Auscultation: no crackles, no rales, no rhonchi and no wheezes Cardio Rate: regular rate Rhythm: regular rhythm Heart sounds: no murmurs and normal S1 and S2 GI Palpation (GI): Soft to palpation, Tenderness to palpation present (GI) in the RLQ and suprapubicly, no hepatomegaly and no splenomegaly Auscultation: normal bowel sounds Abdomen image: 2 1. PAIN TO PALPATION OVER THE RIGHT LOWER ABDOMINAL QUADRANT. DOES HAVE SOME MILD PAIN OVER LEFT LOWER QUADRANT IN SUPRAPUBIC AREA TO PALPATION. Skin General skin exam: no rashes or lesions noted and dry skin Neuro General: oriented to person, oriented to place and oriented to time Cranial nerves: Yes Equal, round and reactive pupils present Speech: No Abnormal speech present Gait exam (Neuro): Normal gait present Motor exam (neuro): no tremor noted Extrem Right upper extremity: full ROM Left upper extremity: full ROM Right lower extremity: full ROM; no edema Left lower extremity: full ROM; no edema Psych Mental Status: mental status grossly normal Speech and movement: Normal speech and movement present Affect: normal affect Attitude: cooperative Thought process: Normal thought process present Assessment and Plan Assessment & Plan (1) Right lower quadrant abdominal pain: Code(s): R10.31 - Right lower quadrant pain Plan: Patient reporting right lower quadrant abdominal pain. Will send for ultrasound appendix to rule out appendicitis. (2) UTI (urinary tract infection): Code(s): N39.0 - Urinary tract infection, site not specified Qualifiers: Hematuria presence: without hematuria Urinary tract infection type: a cute cystitis Qualified Code(s): N30.00 - Acute cystitis without hematuria Plan: Most recent urinalysis did show white blood cell and 2+ bacteria. Will treat empirically for UTI. Orders: Orders 2 US appendix Today R10.31 - Right lower quadrant pain Medications: New 2 acetaminophen-codeine 300-30 mg 1 tab PO Q8H 4 days PRN 12 tabs 0RF pain R10.31 - Right lower quadrant pain nitrofurantoin monohyd/m-cryst 100 mg (Macrobid) must administer with a meal/food 100 mg PO Q12H 5 days 10 caps 0RF N39.0 - Urinary tract infection, site not specified Refilled 2 dulaglutide (Trulicity) 0.75 mg (0.5 mL) subcut QWEEK 90 days 13 mL 1RF E11.65 - Type 2 diabetes mellitus with hyperglycemia Coding Level of Care Code Est Pt Level 3 (92261) Diagnoses Right lower quadrant abdominal pain R10.31 Acute cystitis without hematuria N30.00 Hematuria presence: without hematuria Urinary tract infection type: acute cystitis
[2023-04-27 10:00] VITALS: BP 102/58; PULSE 98; O2SAT 97; BMI 22.9
== END 2023-04-27 10:31 | disposition home or self-care (01) ==
LOC: HO.HMGH 09:29
PROVIDERS: PCP Internal Medicine; Visit Provider Physician Assistant
DX: R10.31 Right lower quadrant pain (principal); N30.00 Acute cystitis without hematuria
CPT/HCPCS: 99213

== ENCOUNTER 2023-04-29 11:29 | Outpatient (REF) | payer OTHER, SELFPAY ==
--- NOTE | ~2023-04-29 | US_ITS ---
EXAMINATION: US APPENDIX CLINICAL INFORMATION: Right lower quadrant pain COMPARISON: None. TECHNIQUE: Imaging of the right lower quadrant was performed with a high-frequency linear transducer using graded compression. A curved transducer was also utilized. FINDINGS: Appendix: Non-visualized appendix. Free Fluid: No. Increased Echogenicity Of Periappendiceal Fat: No. Mesenteric Lymph Nodes: No. Abscess: No. Right Kidney: Normal without hydronephrosis. Additional Abnormalities: None. US/US appendix IMPRESSION: Non-visualized appendix with no ancillary findings to suggest appendicitis. If appendicitis is a consideration, consider CT scan. If at all possible, I would do this with a full oral prep as well as IV contrast.
== END 2023-04-29 11:30 | disposition home or self-care (01) ==
LOC: HO.US 11:29
PROVIDERS: PCP Internal Medicine; Visit Provider Physician Assistant
DX: R10.31 Right lower quadrant pain (principal)
CPT/HCPCS: 76705

== ENCOUNTER 2023-04-30 10:54 | Outpatient (AMB) | payer OTHER, SELFPAY ==
[2023-04-30 10:46] VITALS: BMI 22.9
--- NOTE | 2023-04-30 10:46 | A.OFFPC_ITS ---
Vital Signs 04/30/23 10:46 Height 5 ft 4 in Weight 133 lb 6 oz BMI 22.9 Blood Pressure Location Lt brachial Position Sitting Intake Visit Reasons: DM, ILD [phone] Market Research Coordinator Required: No Accompanied by: Daughter Allergies No Known Allergies Allergy (Verified 04/27/23 10:13) Tobacco use date assessed: 07/15/22 HPI DM, ILD [phone] HPI Details 82-year-old female with a history of sascha betes mellitus hypercholesterolemia hypertension history of CVA and interstitial lung disease last seen in January 2023. Review of the notes in 04/29/2023 had an ultrasound of the abdomen due to right lower abdominal pain no visualized appendix is seen to suggest appendicitis.. Patient also had a CT scan of the chest in 03/23/2023 showing severe interstitial lung disease with no evidence of acute alveolitis or pneumonitis prominent mediastinal lymph nodes.. Patient follows up with the Pulmonary seen in 02/28/2023 and continuing with oxygen supplementation 4 L with activity 2 L on sedentary positions on prednisone 10 mg once a day PFSH Medical History Chronic respiratory failure Acute and chronic respiratory failure Pneumonitis Generalized anxiety disorder Urinary incontinence CVA (cerebral vascular accident) Osteopenia Lumbar spinal stenosis Interstitial pulmonary fibrosis Insomnia Cystocele Hypertension Hypercholesterolemia Type 2 diabetes mellitus with hyperglycemia Surgical History Hx of section Social History Housing: Apartment Alcohol intake: never Patient Tobacco Use Status: Never used Tobacco e-Cigarette/Vaping Use: Never Used Second Hand Smoke Exposure: No service: No Current occupational status: retired Cognitive needs: Yes ([employer] at home) Hearing needs: No Vision needs: Yes Questionnaire Thrive Questionnaire Date Thrive assessed: 07/15/22 RADHA-7 AMB Questionnaire RADHA-7 Date RADHA - 7 assessed: 07/15/22 Source: Developed by Drs. Farzad Mcqueen, Dianna Oscar, Jono uCadra and colleagues, with an educational diallo from [employer]. Physical exam (Primary Care) BMI result Body Mass Index 22.9 Tobacco/Smoking Status: Tobacco use Status Tobacco use date assessed 07/15/22 04/30/23 10:49 Patient Tobacco Use Status Never used Tobacco 04/30/23 10:49 e-Cigarette/Vaping Use Never Used 04/30/23 10:49 Thrive Assessment: Date of Thrive Assessment Date Thrive assessed 07/15/22 04/30/23 10:49 Telehealth Telehealth Location of provider rendering services: practice address Location of patient: address on file Patient Identification confirmed using: Name, : Yes Telehealth method: voice only Patient verbally consented to treatment: Yes Patient verbally consented to billing insurance company: Yes Patient informed of any privacy concerns related to visit: Yes Assessment and Plan Assessment & Plan (1) Right lower quadrant abdominal pain: Code(s): R10.31 - Right lower quadrant pain (2) Interstitial lung disease: Comment: June 2022 Code(s): J84.9 - Interstitial pulmonary disease, unspecified Plan: Patient is being followed up by Pulmonary and on prednisone right now. CT scan shows severe interstitial lung disease continuing with oxygen (3) Type 2 diabetes mellitus with hyperglycemia: Code(s): E11.65 - Type 2 diabetes mellitus with hyperglycemia Qualifiers: Diabetes mellitus terminal carman insulin use: without terminal carman use Qualified Code(s): E11.65 - Type 2 diabetes mellitus with hyperglycemia Plan: Decrease the amount of carbohydrate intake, pasta, bread, rice and potatoes are all sugar and that is aside from all the sweet stuff, remember that fruits are good but they are Sweet also. Presently on Trulicity metformin A1c is high due to the steroids being there. just receirved trulicity but will add glipizide (4) Hypercholesterolemia: Code(s): E78.00 - Pure hypercholesterolemia, unspecified Plan: Avoid fried foods, chicken skin, eggs, butter margarine, pastries and meat. Be it pork or beef they have a lot of cholesterol LDL goal of less than 100 and triglyceride of less than 150 patient's medication is atorvastatin 40 mg once a day March 2023 blood work (5) Hypertension: Comment: September 2014 echocardiogram normal left ventricular size ejection fraction 65-75% no wall motion abnormalities EKG 02/05/2020 normal sinus rhythm, left axis deviation nonspecific ST T wave changes June 2022 nuclear stress test no evidence of ski me a by EKG, myocardial perfusion scan normal perfusion left ventricular ejection fraction 69% Code(s): I10 - Essential (primary) hypertension Qualifiers: Hypertension type: essential hypertension Qualified Code(s): I10 - Essential (primary) hypertension Plan: Continue with blood pressure medication. Decrease salt intake and exercise on losartan 50 mg once a day (6) UTI (urinary tract infection): Code(s): N39.0 - Urinary tract infection, site not specified Qualifiers: Urinary tract infection type: acute cystitis Hematuria presence: wi thout hematuria Qualified Code(s): N30.00 - Acute cystitis without hematuria Plan: on nitrofurantoin and will retest urine 1 week after Orders: Orders UA CC w/rflx Micro + Cult Today N30.00 - Acute cystitis without hematuria, R30.0 - Dysuria Hemoglobin A1c 3 Months E11.65 - Type 2 diabetes mellitus with hyperglycemia Complete Blood Count Auto Diff 3 Months E11.65 - Type 2 diabetes mellitus with hyperglycemia Comprehensive Met. Panel 3 Months E11.65 - Type 2 diabetes mellitus with hyperglycemia Medications: New glipizide 5 mg PO DAILY 30 tabs 4RF E11.65 - Type 2 diabetes mellitus with hyperglycemia Coding Level of Care Code Tele Est Pt Level 4 (89727) Diagnoses Right lower quadrant abdominal pain R10.31 Interstitial lung disease J84.9 Type 2 diabetes mellitus with hyperglycemia, without long-term current use of insulin E11.65 Diabetes mellitus terminal carman insulin use: without terminal carman use Hypercholesterolemia E78.00 Essential hypertension I10 Hypertension type: essential hypertension Acute cystitis without hematuria N30.00 Urinary tract infection type: acute cystitis Hematuria presence: without hematuria
== END 2023-04-30 13:31 | disposition home or self-care (01) ==
LOC: HO.HMGH 10:54
PROVIDERS: PCP Internal Medicine; Visit Provider Internal Medicine
DX: E11.65 Type 2 diabetes mellitus with hyperglycemia (principal); R10.31 Right lower quadrant pain; J84.9 Interstitial pulmonary disease, unspecified; E78.00 Pure hypercholesterolemia, unspecified; I10 Essential (primary) hypertension; N30.00 Acute cystitis without hematuria
CPT/HCPCS: 99442

== ENCOUNTER 2023-05-24 10:12 | Outpatient (REF) | payer OTHER, SELFPAY ==
[2023-05-24 11:22] LABS: MANUAL DIFF FLAG NO
[2023-05-24 11:28] LABS: VBG Base Excess 12.3 mmol/L; VBG HCO3 39 mmol/L (22-26); VBG pCO2 60 mmHg; VBG pH 7.42 (7.32-7.43); VBG pO2 30 mmHg; Venous Blood Gas Refer to POC result
[2023-05-24 11:34] LABS: Basophils Absolute Auto 0.1 X10*3/uL (0.0-0.2); Basophils Percent Auto 0.4 % (0-2); Eosinophils Absolute Auto 0.7 X10*3/uL (0.0-0.4); Eosinophils Percent Auto 3.7 % (0-4); Hematocrit 33.4 % (37.0-47.0); Hemoglobin 10.3 g/dl (12.0-16.0); Imm Gran Abs Auto 0.09 X10*3/uL (0.00-0.03); Imm Gran Pct Auto 0.5 % (0.0-0.4); Lymphocytes Absolute Auto 2.5 X10*3/uL (1.2-4.9); Lymphocytes Percent Auto 13.8 % (20-40); Mean Corpuscular HGB Conc 30.8 g/dl (31.0-35.0); Mean Corpuscular Volume 90.8 fL (80.0-98.0); Monocytes Absolute Auto 0.6 X10*3/uL (0.1-1.2); Monocytes Percent Auto 3.1 % (2-11); Neutrophils Absolute Auto 14.1 x10*3/uL (2.0-8.3); Neutrophils Percent Auto 78.5 % (45-73); Platelet Count 783 X10*3/uL (160-400); Red Blood Count 3.68 X10*6/uL (4.20-5.50); Red Cell Distribution Width 13.9 % (11.0-16.0)
[2023-05-24 11:38] LABS: Anion Gap 12 (12-20); Blood Urea Nitrogen 5 mg/dL (9-16); Calcium 9.5 mg/dL (8.4-10.2); Carbon Dioxide 33 mmol/L (22-29); Chloride 99 mmol/L (96-108); Estimated Glomerular Filt Rate > 60; Glucose Random 338 mg/dL (60-115); Potassium 3.3 mmol/L (3.3-5.1); Sodium 141 mmol/L (135-145)
[2023-05-24 11:45] LABS: B Type Natriuretic Peptide 57 pg/mL (<100)
[2023-05-24 11:46] LABS: Troponin-I High Sensitivity 7.3 ng/L (<3.5-17.0)
[2023-05-24 12:29] LABS: Erythrocyte Sedimentation Rate 91 MM/HR (0-20)
== END 2023-05-24 10:13 | disposition home or self-care (01) ==
LOC: HO.LAB 10:12
PROVIDERS: PCP Internal Medicine; Visit Provider Hospitalist
DX: J84.9 Interstitial pulmonary disease, unspecified (principal); J96.20 Acute and chronic respiratory failure, unspecified whether with hypoxia or hypercapnia; R07.9 Chest pain, unspecified; J96.11 Chronic respiratory failure with hypoxia; Z99.81 Dependence on supplemental oxygen
CPT/HCPCS: 36415; 80048; 82803; 83880; 84484; 85025; 85652; 99212

== ENCOUNTER 2023-05-24 10:12 | Outpatient (AMB) | payer OTHER, SELFPAY ==
[2023-05-24 10:27] VITALS: PULSE 88; O2SAT 97; BMI 22.7
--- NOTE | 2023-05-24 10:27 | MHC.OFFVIS ---
Intake Vital Signs 05/24/23 10:27 Height 5 ft 4 in Weight 132 lb 4.438 oz BMI 22.7 Pulse 88 Pulse Source Pulse Oximeter Pulse Oximetry (%) 97 Oxygen Delivery Method Room Air Comment 5 Liters Oxygen(Inogen One) Intake Visit Reasons: COPD Retail Store Clerk Required: No Allergies No Known Allergies Allergy (Verified 05/24/23 10:31) HPI HPI Comments History of Present Illness Details The patient is an 82 year woman presenting with worsening respiratory capacity now on oxygen supplementation. Apparently the patient had a CVA back in 2016. She was admitted to [facility]. Which she was there she did undergo a CT scan of the chest demonstrating interstitial lung changes as well as lymphadenopathy. The patient did follow-up with her primary care doctor which was placed at [facility]. Therefore she had a repeat CT scan again demonstrating the interstitial lung changes although the lymphadenopathy appear to have improved. We were able to look at that CT scan from 2015 from [facility]. The patient did then get a referral to Hematology Oncology due to significant thrombocytosis in the on myopathy initially. The workup was unremarkable. Patient ultimately was in her usual state health until recently when she started developing worsening shortness of breath for the last month. She started also developing some intermittent chest discomfort. Finally her family encouraged her to go to the ER and finally she did. She was seen at [facility] which had a repeat CT scan. Demonstrating a persistent interstitial changes in addition to the lymphadenopathy. I do not have the imaging studies to review. Patient was admitted to the hospital treated for pneumonia and also given prednisone. She was tested positive for COVID. Subsequently the patient was discharged on oxygen. She did follow-up with her primary care doctor. There she had a chest x-ray done at the [facility]. The patient did have a chest x-ray which I personally reviewed demonstrating evidence of pneumonitis superimposed on her interstitial lung disease. Therefore the patient is referred to Pulmonary. Currently she is on continues oxygen at 2 L. Although she is still very short of breath with minimal activity. She has also been having intermittent chest pains. During the visit we did go for brief walking and heart rate went up to about 130. During that walk the patient felt dizzy and like she was going to ?pass out?. At that moment we sat her down she regained her strength and heart rate did slow down to about 105. Weight we were able to go back to the room. I which point we did an EKG which demonstrated significant ST changes in the precordial leads suggestive of ischemia. Based on the fact the patient was crease syncopal also had intermittent chest discomfort in unstable vital signs with significant tachycardia will go ahead and refer the patient back to the ER for further evaluation. 08/21/2022 the patient is here for a pulmonary follow-up visit. The patient overall is doing well. She did have her echocardiogram which we personally reviewed. No significant pulmonary hypertension which is reassuring. She does have some diastolic dysfunction. She did start the prednisone and she is tolerating it well. Denies any significant adverse effects. She does complain of some blurred nest of the vision and some thirst. She her family does have a concomitant available in the check her sugar at times. He does 4, will be on the prednisone 10 mg daily to treat for the interstitial lung disease and will follow-up with an x-ray and 2 months. If the patient has any progression of the interstitial lung disease then we can consider antifibrotic agents. The patient continues use the oxygen with good effect. Overall she is doing better. 10/23/2022 the patient is here for a pulmonary follow-up visit. The patient overall has been doing well. She is tolerating the prednisone 10 mg daily. She did have any visit to the ER at [facility] because of chest discomfort. She was subsequently discharged. She continues use the prednisone at 10 mg daily. We did taken for 6 minutes walk testing the patient did fairly decent on a conserving device. She that she does need better portability because she cannot he handed her the tanks. Therefore going to request a portable oxygen concentrator from her [employer] company. In the meantime they can provide her with a conserving valve and smaller tank so she can carry them easier. Will go ahead and plan to repeat her pulmonary function studies which she comes back in 3-4 months. And subsequently after that will need further imaging studies. If we see any progression of the pulmonary fibrosis will consider antifibrotic agents. 02/26/2023 the patient is here for a pulmonary follow-up visit. The patient continues to have significant dyspnea on exertion. she has been using the oxygen. When she leaves the house she is using her portable oxygen concentrator. She is currently using at 2 L pulse. I did advise her to increase it to 4 L pulse when she is ambulating. Sometimes she does forget to breathe through her nose and does not activate the pulse conserving device. I did talk to about the importance about that. In the meantime the patient still desaturates on a brief walking oximetry. Even on 4 L she decreases down to the high 80s. Although the portable concentrator does provide her some relief when it comes to been able to have better portability if her condition worsens she may need to go back to continues oxygen. The patient had a CT scan back in the fall 2021. will request a repeat CT scan to see if there is any evidence of any progression of the pulmonary fibrosis. The patient did attempt to do pulmonary function studies but she was not able to. If the patient demonstrates worsening fibrosis then will treat her with antifibrotic agents for progressive disease. If the patient has any problems or concerns prior to the next visit she is to call for an earlier assessment. 05/24/2023 the patient is here for hospital follow-up visit. Back in April she developed worsening respiratory symptoms and she was admitted to local hospital and was treated for COPD exacerbation. There she had a chest x-ray demonstrating her interstitial lung disease. The patient had a negative viral panel for RSV flu and COVID. She was treated with prednisone in addition to doxycycline. She felt a little better she was discharged although she is still not her baseline. She still complaining about dry cough which has been bothering her at nighttime also increasing shortness of breath requiring additional oxygen. She now has a portable oxygen concentrator which she finds very helpful. The patient however sometimes seems to be need more than the feels he can provide. She is reluctant to switch over to regular oxygen tanks. Therefore will go ahead and treat her and hopefully we can decrease the inflammation of her lungs and her breathing so she can tolerate the p.o. see better. If her symptoms worsen then at that point walk to switch over to regular continues oxygen. The patient had been on prednisone for some time but then she has stopped it. Therefore, based on her significant interstitial lung disease will go ahead and start her on 10 mg of prednisone and also start her on CellCept as a steroid sparing agent specially since she has uncontrolled diabetes at this point because of her steroid use. We did talk about Ofev as a possibility. We will follow up with her in the next couple months and see how she does on the CellCept and prednisone combination. If the patient continue has progressive disease that will go looking to starting Ofev. The patient will also undergo blood work today to assess her blood gas and also to follow up her inflammatory markers. PFSH Medical History Asthma-COPD overlap syndrome Chronic respiratory failure Acute and chronic respiratory failure Pneumonitis Generalized anxiety disorder Urinary incontinence CVA (cerebral vascular accident) Osteopenia Lumbar spinal stenosis Interstitial pulmonary fibrosis Insomnia Cystocele Hypertension Hypercholesterolemia Type 2 diabetes mellitus with hyperglycemia Surgical History Hx of section Social History Housing: Apartment Alcohol intake: never Patient Tobacco Use Status: Never used Tobacco e-Cigarette/Vaping Use: Never Used Second Hand Smoke Exposure: No service: No Current occupational status: retired Cognitive needs: Yes ([employer] at home) Hearing needs: No Vision needs: Yes Review of Systems Const Reports fatigue Eyes Denies change in vision ENT Reports Normal hearing present, Denies change in voice and Denies dizziness Card Denies chest pain, Reports dyspnea and Reports dyspnea on exertion Resp Reports cough, Reports dyspnea, Reports dyspnea on exertion and Denies wheezing GI Reports no additional complaints Musc Reports no additional complaints Skin/Breast Denies rash Neuro Reports Normal hearing present and Denies dizziness Endo Reports fatigue Paco/Lymph Denies easy bruising and Denies lymphadenopathy Aller/Immun Denies wheezing Physical Exam Vital Signs: Last Vital Signs Pulse 88 05/24/23 10:27 Pulse Ox 97 05/24/23 10:27 Oxygen Delivery Method Room Air 05/24/23 10:27 BMI result Body Mass Index 22.7 Const General: alert HEENT Head: Yes atraumatic Eyes General: appearance normal, both eyes and all related structures Conjunctivae: conjunctivae normal Neck Neck: Yes supple Chest Chest palpation & inspection: normal inspection of the chest Resp Effort & Inspection: tachypneic Auscultation: crackles, rales bilateral in the mid lung francis, no wheezes and diminished lung sounds Cardio Rate: tachycardic Rhythm: regular rhythm Heart sounds: S1 normal heart sound present and S2 normal heart sound present GI Auscultation: normal bowel sounds Skin General skin exam: no rashes or lesions noted Neuro Cranial nerves: Yes Normal hearing present Extrem General: Yes no clubbing, cyanosis or edema Assessment & Plan Assessment & Plan (1) Chronic respiratory failure: Code(s): J96.10 - Chronic respiratory failure, unspecified whether with hypoxia or hypercapnia Qualifiers: Respiratory failure complication: hypoxia Qualified Code(s): J96.11 - Chronic respiratory failure with hypoxia (2) Pneumonitis: Code(s): J18.9 - Pneumonia, unspecified organism (3) Interstitial lung disease: Comment: June 2022 Code(s): J84.9 - Interstitial pulmonary disease, unspecified Plan continue Prednisone 10mg start cellcept 500mg BID continue oxygen supplementation: 4L/pulse with activity when out of the house. 2L continues while in the house CT chest consider anti fibrotic agent if further progression Bloodwork/venous gas F/U 4 months Orders: Orders Venous Blood Gas Today J96.20 - Acute and chronic respiratory failure, unspecified whether with hypoxia or hypercapnia, R07.9 - Chest pain, unspecified Troponin-I High Sensitivity Today J96.20 - Acute and chronic respiratory failure, unspecified whether with hypoxia or hypercapnia, R07.9 - Chest pain, unspecified Complete Blood Count Auto Diff Today J96.20 - Acute and chronic respiratory failure, unspecified whether with hypoxia or hypercapnia, R07.9 - Chest pain, unspecified Basic Metabolic Panel Today J96.20 - Acute and chronic respiratory failure, unspecified whether with hypoxia or hypercapnia, R07.9 - Chest pain, unspecified B Type Natriuretic Peptide Today J96.20 - Acute and chronic respiratory failure, unspecified whether with hypoxia or hypercapnia, R07.9 - Chest pain, unspecified Erythrocyte Sedimentation Rate Today J96.20 - Acute and chronic respiratory failure, unspecified whether with hypoxia or hypercapnia, R07.9 - Chest pain, unspecified Coding Level of Care Code Est Pt Level 4 (34945) Diagnoses Chronic respiratory failure with hypoxia J96.11 Respiratory failure complication: hypoxia Pneumonitis J18.9 Interstitial lung disease J84.9 Time Spent (min) 18
== END 2023-05-24 11:06 | disposition home or self-care (01) ==
PROVIDERS: PCP Internal Medicine; Visit Provider Hospitalist
DX: J96.11 Chronic respiratory failure with hypoxia (principal); J84.9 Interstitial pulmonary disease, unspecified
CPT/HCPCS: 99214

== ENCOUNTER 2023-08-06 12:31 | Outpatient (AMB) | payer OTHER, SELFPAY ==
--- NOTE | 2023-08-06 12:31 | A.OFFPC_ITS ---
Intake Visit Reasons: 3M Follow up, Allergies No Known Allergies Allergy (Verified 08/06/23 12:32) Tobacco use date assessed: 08/06/23 Fall risk assessment: No Falls in past year Last assessed Fall Risk: 08/06/23 HPI 3M Follow up, HPI Details 82-year-old female with interstitial asya g disease uncontrolled diabetes mellitus hypertension hypercholesterolemia coming in through Telehealth for follow-up. Last seen in April 2023 through Telehealth also. ER visit June 2023 for shortness of breath influenza a Tamiflu given with prednisone. Also noted in April hospitalization for COPD exacerbation also and had problems with breathing also on 4 L oxygen. Patient is followed up in May with a pulmonary on prednisone 10 mg once a day CellCept 500 mg twice a day oxygen at [address] chest requested and consideration of an antifibrotic agent. noted a mass on the upper back and this has been painful. Patient now has been incontinent and very weak has billing lying in bed a lot. Patient's daughter [email or web address] interpreting. With her having the problem of the breathing discussed about palliative treatment and would like this introduced to her. PFSH Medical History Asthma-COPD overlap syndrome Chronic respiratory failure Acute and chronic respiratory failure Pneumonitis Generalized anxiety disorder Urinary incontinence CVA (cerebral vascular accident) Osteopenia Lumbar spinal stenosis Interstitial pulmonary fibrosis Insomnia Cystocele Hypertension Hypercholesterolemia Type 2 diabetes mellitus with hyperglycemia Surgical History Hx of section Social History Housing: Apartment Alcohol intake: never Patient Tobacco Use Status: Never used Tobacco e-Cigarette/Vaping Use: Never Used Second Hand Smoke Exposure: No service: No Current occupational status: retired Cognitive needs: Yes (Walker [employer] Cane at home) Hearing needs: No Vision needs: Yes Questionnaire Thrive Questionnaire Date Thrive assessed: 08/06/23 AUDIT C Alcohol Use Questionnaire (AUDIT-C) 1. How often do you have a drink containing alcohol?: Never 3. How often do you have six or more drinks on one occasion?: Never Total Score: 0 RADHA-7 AMB Questionnaire RADHA-7 Date RADHA - 7 assessed: 07/15/22 Source: Developed by Drs. Farzad Mcqueen, Dianna B.W. Jono Oscar and colleagues, with an educational diallo from [employer]. Physical exam (Primary Care) Tobacco/Smoking Status: Tobacco use Status Tobacco use date assessed 08/06/23 08/06/23 12:33 Patient Tobacco Use Status Never used Tobacco 08/06/23 12:33 e-Cigarette/Vaping Use Never Used 08/06/23 12:33 Thrive Assessment: Date of Thrive Assessment Date Thrive assessed 08/06/23 08/06/23 12:36 Back/Spine/Pelvis Other: Visual exam noted a large mass on the right parathoracic area Telehealth Telehealth Location of provider rendering services: practice address Location of patient: address on file Patient Identification confirmed using: Name, : Yes Telehealth method: video (iphone) Patient verbally consented to treatment: Yes Patient verbally consented to billing insurance company: Yes Patient informed of any privacy concerns related to visit: Yes Minutes spent on Phone/Video with Pt.: 25 Assessment and Plan Assessment & Plan (1) Asthma-COPD overlap syndrome: Code(s): J44.89 - Other specified chronic obstructive pulmonary disease Plan: Patient follows up with Pulmonary continuing on inhalers and prednisone (2) Chronic respiratory failure: Code(s): J96.10 - Chronic respiratory failure, unspecified whether with hypoxia or hypercapnia Qualifiers: Respiratory failure complication: hypoxia Qualified Code(s): J96.11 - Chronic respiratory failure with hypoxia Plan: Continue with oxygen at 40 L nasal cannula (3) Interstitial lung disease: Comment: June 2022 Code(s): J84.9 - Interstitial pulmonary disease, unspecified Plan: Patient follows up with Pulmonary CellCept and prednisone. Discussed with the daughter regarding palliative care (4) Type 2 diabetes mellitus with hyperglycemia: Code(s): E11.65 - Type 2 diabetes mellitus with hyperglycemia Qualifiers: Diabetes mellitus joint terminal attack controller insulin use: without skilled nursing use Qualified Code(s): E11.65 - Type 2 diabetes mellitus with hyperglycemia Plan: Decrease the amount of carbohydrate intake, pasta, bread, rice and potatoes are all sugar and that is aside from all the sweet stuff, remember that fruits are good but they are Sweet also. Presently on metformin 750 mg twice a day, glipizide 5 mg once a day. Patient's blood sugar has not been checked and has advised the daughter to check the blood sugar (5) Hypercholesterolemia: Code(s): E78.00 - Pure hypercholesterolemia, unspecified Plan: Presently will continue to monitor. Avoid fried foods, chicken skin, eggs, butter margarine, pastries and meat. Be it pork or beef they have a lot of cholesterol on atorvastatin 40 mg once a day (6) Hypertension: Comment: September 2014 echocardiogram normal left ventricular size ejection fraction 65-75% no wall motion abnormalities EKG 02/05/2020 normal sinus rhythm, left axis deviation nonspecific ST T wave changes June 2022 nuclear stress test no evidence of ski me a by EKG, myocardial perfusion scan normal perfusion left ventricular ejection fraction 69% Code(s): I10 - Essential (primary) hypertension Qualifiers: Hypertension type: essential hypertension Qualified Code(s): I10 - Essential (primary) hypertension Plan: Continue with blood pressure medication. Decrease salt intake and exercise on losartan 50 mg once a day (7) Mass on back: Code(s): R22.2 - Localized swelling, mass and lump, trunk Plan: Patient presented with large a symmetric mass on the right thoracic back. Patient is advised to get a CT scan Orders: Orders Complete Blood Count Auto Diff Today R22.2 - Localized swelling, mass and lump, trunk Hemoglobin A1c Today R22.2 - Localized swelling, mass and lump, trunk UA w Microscopic Today R22.2 - Localized swelling, mass and lump, trunk Vitamin B12 and Folate Today R22.2 - Localized swelling, mass and lump, trunk CT chest w IV con Today R22.2 - Localized swelling, mass and lump, trunk Blood Urea Nitrogen Today R22.2 - Localized swelling, mass and lump, trunk Creatinine Today R22.2 - Localized swelling, mass and lump, trunk Comprehensive Met. Panel Today R22.2 - Localized swelling, mass and lump, trunk Free T4 (Free Thyroxine) Today R22.2 - Localized swelling, mass and lump, trunk Thyroid Stimulating Hormone Today R22.2 - Localized swelling, mass and lump, trunk Coding Level of Care Code Tele Est Pt Level 4 (95584) Diagnoses Asthma-COPD overlap syndrome J44.89 Chronic respiratory failure with hypoxia J96.11 Respiratory failure complication: hypoxia Interstitial lung disease J84.9 Type 2 diabetes mellitus with hyperglycemia, without long-term current use of insulin E11.65 Diabetes mellitus joint terminal attack controller insulin use: without joint terminal attack controller use Hypercholesterolemia E78.00 Essential hypertension I10 Hypertension type: essential hypertension Mass on back R22.2
== END 2023-08-06 17:00 | disposition home or self-care (01) ==
LOC: HO.HMGH 12:31
PROVIDERS: PCP Internal Medicine; Visit Provider Internal Medicine
DX: J44.89 Other specified chronic obstructive pulmonary disease (principal); J96.11 Chronic respiratory failure with hypoxia; J84.9 Interstitial pulmonary disease, unspecified; E11.65 Type 2 diabetes mellitus with hyperglycemia; E78.00 Pure hypercholesterolemia, unspecified; I10 Essential (primary) hypertension; R22.2 Localized swelling, mass and lump, trunk
CPT/HCPCS: 99214

== ENCOUNTER 2023-10-08 13:04 | Inpatient (IN) | payer OTHER, SELFPAY ==
[2023-10-08] VITALS (14 sets, daily range): BP systolic 102–137; BP diastolic 39–80; PULSE 94–120; RESP 18–42; TEMP 36.4–37; O2SAT 88–99; BMI 49.1; BMI 23.1
--- NOTE | ~2023-10-08 | XR_ITS ---
EXAMINATION: XR CHEST CLINICAL INFORMATION: Aspiration pneumonia. COMPARISON: 10/08/2023 and 07/23/2022 TECHNIQUE: Frontal view of the chest was obtained. FINDINGS: The right hemidiaphragm appears elevated. There is chronic interstitial prominence. There are superimposed multifocal patchy opacities unchanged from prior. No pleural effusion. Cardiac silhouette is unchanged. XR/XR chest 1V IMPRESSION: Stable examination. No change in multifocal opacities superimposed on background of chronic interstitial lung disease.
--- NOTE | ~2023-10-08 | XR_ITS ---
EXAMINATION: XR CHEST CLINICAL INFORMATION: Shortness of breath. COMPARISON: CT chest dated 04/20/2023. Chest radiograph dated 07/23/2022. TECHNIQUE: Frontal view of the chest was obtained. FINDINGS: The trachea is in normal anatomic position. Heart size is normal. Again seen is extensive interstitial lung disease characterized by interstitial prominence. There is a new linear opacity within the right mid lung which could represent scarring versus linear atelectasis. A 9 mm nodular opacity within the right perihilar region may represent a lymph node versus pulmonary nodule. There is no large pleural effusion. There is no pneumothorax. There is no acute osseous abnormality. XR/XR chest 1V IMPRESSION: There is no consolidation within either lung. There is extensive interstitial lung disease characterized by interstitial prominence. A new linear opacity within the right mid lung may represent linear atelectasis versus progressive interstitial lung disease. A 9 mm nodular opacity within the right parahilar region may represent a lymph node versus a pulmonary nodule.
--- NOTE | ~2023-10-08 | XR_ITS ---
EXAMINATION: XR CHEST CLINICAL INFORMATION: Worsening shortness of breath. COMPARISON: Chest radiograph performed 10/08/2023 at 2:04 PM. TECHNIQUE: Frontal view of the chest was obtained. FINDINGS: The trachea is in normal anatomic position. Heart size is normal. There is worsening interstitial prominence likely representing a combination of interstitial lung disease and superimposed atypical infection. There is no pleural effusion or pneumothorax. There are degenerative changes of the shoulders. XR/XR chest 1V IMPRESSION: Worsening interstitial prominence likely representing superimposed infection on interstitial lung disease.
--- NOTE | 2023-10-08 13:05 | ED_ITS ---
HPI - Asthma General Chief Complaint: Upper Respiratory Symptoms Stated Complaint: SOB Time Seen by Provider: 10/08/23 13:05 Source: patient, family, EMS and old records reviewed Mode of arrival: EMS Limitations: no limitations History of Present Illness HPI Narrative: 82 yo female with PMH Of asthma-COPD overlap syndrome on chronic steroids, pneumonitis, on chronic 3L NC at home, CVA, HTN, HLD, DM who presents with c/o 5 days of subjective fevers, productive cough, increased wheezing and work of breathing. No sick contacts. Medical home team came and give 2 duonebs and 125mg IV steroids she feels slightly better. Has recently upped her O2 to 5L NC. MD complaint: asthma attack , shortness of breath and wheezing Onset (ago): day(s) (5) Severity: moderate Context: recent URI Associated symptoms: productive cough and fever Treatments Prior to Arrival: inhaled bronchodilator, IV steroid and oxygen Related Data Home Medications ?Medication ?Instructions ?Recorded ?Confirmed Oxygen Home Use 10/23/22 04/27/23 Previous Rx's ?Medication ?Instructions ?Recorded acetaminophen 500 mg tablet 1,000 mg (2 x 500 mg) PO TID pain 05/07/21 90 days #540 tabs diclofenac sodium 1 % topical gel 4 g topical QID #100 grams 05/07/21 evencare G2 blood glucose moniter #1 ea 10/02/21 starter kit Medline ext cuff nitrile glove #1 ea 12/03/21 sterile pairs (medium) Medline wall mount sharps #1 ea 12/03/21 container 3 galloon red medline basic face mask #1 ea 12/03/21 O2 Gas System Home Transfill Unit #1 ea 11/23/22 ([id number]) folic acid 1 mg tablet 1 mg PO DAILY #90 tabs 12/11/22 medline alcohol prep pads 1.75x3 #1 ea 01/25/23 aspirin 81 mg tablet,delayed 81 mg PO DAILY 90 days #90 tabs 03/05/23 release (Adult Aspirin Regimen) atorvastatin 40 mg tablet 40 mg PO QPM 90 days #90 tabs 03/05/23 cholecalciferol (vitamin D3) 50 50 mcg PO DAILY 90 days #90 caps 03/05/23 mcg (2,000 unit) capsule losartan 50 mg tablet 50 mg PO DAILY 90 days #90 tabs 03/05/23 incontinence pad, liner, disp #180 ea 04/15/23 acetaminophen 300 mg-codeine 30 mg 1 tab PO Q8H PRN pain 4 days #12 04/27/23 tablet tabs nitrofurantoin 100 mg PO Q12H 5 days #10 caps 04/27/23 monohydrate/macrocrystals 100 mg capsule (Macrobid) glipizide 5 mg tablet 5 mg PO DAILY #30 tabs 05/20/23 albuterol sulfate 2.5 mg/3 mL 2.5 mg (3 mL) inhalation QID 30 05/24/23 (0.083 %) solution for nebulization days #360 mL codeine 10 mg-guaifenesin 100 mg/5 10 ml PO Q6H PRN cough 10 days 05/24/23 mL oral liquid #300 mL mycophenolate mofetil 500 mg tablet 500 mg PO BID 30 days #60 tabs 05/24/23 prednisone 10 mg tablet 10 mg PO DAILY 30 days #30 tabs 05/24/23 duloxetine 60 mg capsule,delayed 60 mg PO DAILY 90 days #90 caps 05/28/23 release gabapentin 300 mg capsule 300 mg PO BEDTIME 90 days #90 caps 05/28/23 metformin 750 mg tablet,extended 750 mg PO BID 90 days #180 tabs 05/28/23 release 24 hr Washable Incontinence Pads (Extrusion Manager #60 ea 07/09/23 Pad) commode (bedside commode) #1 ea 07/09/23 medlinecontour plus bladder #90 ea 07/09/23 control pads Mattress for hospital bed #1 ea 07/12/23 Semi- Electric Hospital Bed with #1 ea 07/12/23 Mattress and Rails pen needle, diabetic 32 gauge x #100 ea 08/18/2306/24 (BD Ultra-Fine Micro Pen Needle) insulin glargine 100 unit/mL (3 10 unit (0.1 mL) subcut QPM #15 mL 08/27/23 mL) subcutaneous pen (Lantus Solostar U-100 Insulin) Allergies Allergy/AdvReac Type Severity Reaction Status Date / Time No Known Allergies Allergy Verified 10/08/23 13:28 Review of Systems 2 Review of Systems: Constitutional : pos Fever, pos Chills ENT/Mouth : No Hoarseness, No sore throat, No Rhinorrhea Eyes: No Redness, No Discharge, No Vision Changes Cardiovascular : No Chest Pain, positive SOB, positive Dyspnea on Exertion, No Edema Respiratory : positive Cough, pos Sputum, positive Wheezing, Gastrointestinal : No Nausea, No Vomiting, No Diarrhea, No abdominal Pain Genitourinary : No Dysuria, No Hematuria Musculoskeletal : No joint pain, No Myalgias Skin : No rash Neuro : No Weakness, No Numbness, No Headache Psych : No anxiety, depression Heme/Lymph: No Bruising, No Bleeding Endocrine : No Polyuria, No Polydipsia All other systems reviewed and are negative [facility] Past Medical History Attestation statement: The following information was validated with the patient. Source: old records reviewed Medical History Asthma-COPD overlap syndrome Chronic respiratory failure Acute and chronic respiratory failure Pneumonitis Generalized anxiety disorder Urinary incontinence CVA (cerebral vascular accident) Osteopenia Lumbar spinal stenosis Interstitial pulmonary fibrosis Insomnia Cystocele Hypertension Hypercholesterolemia Type 2 diabetes mellitus with hyperglycemia Surgical History Hx of section Social History Social History Housing: Apartment Alcohol intake: former Patient Tobacco Use Status: Never used Tobacco Smoked in Last 30 Days: No e-Cigarette/Vaping Use: Never Used Second Hand Smoke Exposure: No Use of substances other than those prescribed or required for medical reasons: No Advance Directives: No Advance Directives Information Provided: Yes service: No Current occupational status: retired Cognitive needs: Yes (Walker [employer] at home) Hearing needs: No Vision needs: Yes Physical Exam 2 Vital Signs: Vital Signs: Last Vital Signs Temp 98.6 F 10/08/23 13:25 Pulse 96 10/08/23 13:34 Resp 26 H 10/08/23 13:34 BP 137/54 L 10/08/23 13:25 Pulse Ox 97 10/08/23 13:31 O2 Del Method Nasal Cannula 10/08/23 13:31 Oxygen Flow Rate 3 10/08/23 13:31 BMI result Body Mass Index 49.1 Appearance: Alert. Oriented X3. No acute distress. Eyes: Pupils equal, round and reactive to light. ENT: Pharynx normal. Neck: Normal inspection. Neck supple. CVS: Normal heart rate and rhythm. Pulses normal. Respiratory: No respiratory distress. Breath sounds coarse and diminished throughout Abdomen: Soft and nontender. Skin: Skin warm and dry. Normal skin color. Normal skin turgor. Extremities: No lower extremity edema. No calf ttp Neuro: Oriented X 3. No motor deficit. No sensory deficit. Medications Administered Generic Name Dose Route Start Last Admin Trade Name Freq PRN Reason Stop Dose Admin Azithromycin 500 mg/ Sodium 250 mls @ 125 mls/hr 10/08/23 13:15 10/08/23 13:55 Chloride IV 10/08/23 15:14 125 mls/hr ONCE ONE Administration Sodium Chloride 500 mls @ 500 mls/hr 10/08/23 14:00 10/08/23 14:20 Ns IV 10/08/23 14:59 500 mls/hr .Q1H ONE Administration Discontinued Medications Generic Name Dose Route Start Last Admin Trade Name Freq PRN Reason Stop Dose Admin Acetaminophen 650 mg 10/08/23 13:15 10/08/23 13:53 Acetaminophen 325 Mg Tablet PO 10/08/23 13:16 650 mg ONCE ONE Administration Albuterol Sulfate 5 mg/ 0 mg 10/08/23 13:31 10/08/23 13:34 Albuterol/Ipratropium 3 ml INHALE 10/08/23 13:32 1 each ONCE ONE Administration Guaifenesin/Codeine Phosphate 5 ml 10/08/23 14:51 10/08/23 14:54 Guaifen/Codeine Sf 200/20/10ml 10 Ml Liquid PO 10/08/23 14:52 5 ml ONCE ONE Administration Ceftriaxone Sodium 1 gm/ 50 mls @ 100 mls/hr 10/08/23 14:09 10/08/23 14:29 Sodium Chloride IV 10/08/23 14:38 100 mls/hr ONCE ONE Administration Medical Decision Making Medical Decision Making MDM Narrative: 82 yo female with PMH Of asthma-COPD overlap syndrome on chronic steroids, pneumonitis, on chronic 3L NC at home, CVA, HTN, HLD, DM here with c/o URI symptoms fevers chills increased work of breathing and O2 use with productive cough for 5 days at this time already given duonebs and IV steroids by medical home team. Will obtain labs, cultures, CXR, viral panel and resp pathogen panel - start on empiric azithromycin - titrate her back to 3L NC. Likely admit. Differential Diagnosis Differential Diagnoses: The differential diagnosis associated with the presentation includes URI, pneumonia, COPD, viral syndrome Admission/Observation Consideration of admission/observation: Escalation of care including admission/observation considered given worsening symptoms will admit for further management and workup repeat nebs ordered Consult Healthcare Provider Management of the patient was discussed with: Hospitalist (will admit) Lab Data MDM Lab Attestation statement: I reviewed the patient's lab results. 10/08/23 13:38 10/08/23 13:39 Labs: Lab Results 10/08/23 10/08/23 10/08/23 Range/Units 13:38 13:39 14:04 WBC 14.0 H (4.8-10.8) X10*3/uL RBC 3.61 L (4.20-5.50) X10*6/uL Hgb 10.4 L (12.0-16.0) g/dl Hct 33.4 L (37.0-47.0) % MCV 92.5 (80.0-98.0) fL MCH 28.8 (27.0-33.0) pg MCHC 31.1 (31.0-35.0) g/dl RDW 13.8 (11.0-16.0) % Plt Count 717 H (160-400) X10*3/uL MPV 9.0 L (9.4-12.3) fL Immature Gran % (Auto) 0.3 (0.0-0.4) % Neut % (Auto) 86.8 H (45-73) % Lymph % (Auto) 9.5 L (20-40) % [place] % (Auto) 2.4 (2-11) % Eos % (Auto) 0.6 (0-4) % Baso % (Auto) 0.4 (0-2) % Lymph # (Auto) 1.3 (1.2-4.9) X10*3/uL [place] # (Auto) 0.3 (0.1-1.2) X10*3/uL Eos # (Auto) 0.1 (0.0-0.4) X10*3/uL Baso # (Auto) 0.1 (0.0-0.2) X10*3/uL Abs Immat Gran (auto) 0.04 H (0.00-0.03) X10*3/uL Absolute Neuts (auto) 12.1 H (2.0-8.3) x10*3/uL Absolute Nucleated RBC 0.000 (0.0-0.012) X10*3/uL Nucleated RBC % (auto) 0.0 (0.0-0.2) /100WBC VBG pH 7.41 (7.32-7.43) VBG pCO2 44 mmHg VBG pO2 49 mmHg VBG HCO3 28 H (22-26) mmol/L VBG O2 Saturation 81.0 % VBG Base Excess 3.3 mmol/L Sodium 141 (135-145) mmol/L Potassium 3.4 (3.3-5.1) mmol/L Chloride 101 (96-108) mmol/L Carbon Dioxide 29 (22-29) mmol/L Anion Gap 14 (12-20) BUN 8 L (9-16) mg/dL Creatinine 0.69 (0.5-1.4) mg/dL Estim Creat Clear Calc 85.5 Estimated GFR > 60 Random Glucose 259 H (60-115) mg/dL Lactic Acid 3.0 H* (0.5-2.0) mmol/L Calcium 9.7 (8.4-10.2) mg/dL Magnesium 1.8 (1.6-2.6) mg/dL Total Bilirubin 0.6 (0.0-1.0) mg/dL Direct Bilirubin 0.2 (0.0-0.5) mg/dL AST 17 (5-31) U/L ALT 14 (0-31) U/L Alkaline Phosphatase 84 (39-117) U/L Troponin I High Sens 3.7 (<3.5-17.0) ng/L B-Natriuretic Peptide 15 (<100) pg/mL Total Protein 8.1 H (6.5-8.0) g/dL Albumin 4.0 (3.5-5.0) g/dL Lipase 29 (8-78) U/L Procalcitonin 0.04 ng/mL ABG Data Attestation ABG: I personally reviewed and interpreted this ABG as follows: Interpretation: no retention Independent Interpretation I performed an independent interpretation of an: EKG and Plain X-Ray (left lower lobe pneumonia) Interpretation: Rate: 97 Rhythm: NSR [place]: left, LVH Normal P waves. Normal KENDALL. Normal QRS complex. ST T wave : no CALEB, nonspecific ST T wave changes I and aVL qTC: 469 prior studies: no acute ischemia The study has been interpreted contemporaneously by me. . Radiology Impression Discussion of test interpretation with radiology: I have reviewed the radiologist's reading. Independent Historian Clinical information obtained from an independent historian. History obtained from or confirmed by: EMS and Other (daughter) External Record Review External record reviewed: Inpatient record and Outpatient record Critical Care Time Critical Care Time Critical Care Time: Yes Total Critical Care Time: 60 Attestation: repeat nebs ordered, review of records, IV antibiotics, admission I attest to this time spent taking care of the patient Discharge Plan Discharge Clinical Impression: Acidosis, lactic, H/O thrombocytosis, COPD with acute exacerbation Elevated WBC count Qualifiers: Leukocytosis type: unspecified Qualified Code(s): D72.829 - Elevated white blood cell count, unspecified Pneumonia Qualifiers: Pneumonia type: due to unspecified organism Laterality: left Lung location: l ower lobe of lung Qualified Code(s): J18.9 - Pneumonia, unspecified organism Patient Disposition: Admitted As Inpatient Print Language: Croatian
--- NOTE | 2023-10-08 13:15 | ECG_ITS ---
Test Reason : dyspnea Blood Pressure : / mmHG Vent. Rate : 097 BPM Atrial Rate : 097 BPM P-R Int : 132 ms QRS Dur : 072 ms QT Int : 370 ms P-R-T Axes : 040 -33 038 degrees QTc Int : 469 ms Normal sinus rhythm with sinus arrhythmia Left axis deviation Minimal voltage criteria for LVH, may be normal variant ( R in aVL ) Abnormal ECG When compared with ECG of 23-JUL-2022 11:56, Nonspecific T wave abnormality has replaced inverted T waves in Inferior leads Referred By: Irma Stone Electronically Signed By:MANUEL JOINER
[2023-10-08] MEDS: Albuterol Sulfate 5 MG, Albuterol/Iprat 2.5/0.5MG 3 ML 3 ML INHALE ×2 (13:34→15:05)
[2023-10-08 13:48] LABS: MANUAL DIFF FLAG NO
[2023-10-08 13:49] LABS: Basophils Absolute Auto 0.1 X10*3/uL (0.0-0.2); Basophils Percent Auto 0.4 % (0-2); Eosinophils Absolute Auto 0.1 X10*3/uL (0.0-0.4); Eosinophils Percent Auto 0.6 % (0-4); Hematocrit 33.4 % (37.0-47.0); Hemoglobin 10.4 g/dl (12.0-16.0); Imm Gran Abs Auto 0.04 X10*3/uL (0.00-0.03); Imm Gran Pct Auto 0.3 % (0.0-0.4); Lymphocytes Absolute Auto 1.3 X10*3/uL (1.2-4.9); Lymphocytes Percent Auto 9.5 % (20-40); Mean Corpuscular HGB Conc 31.1 g/dl (31.0-35.0); Mean Corpuscular Hemoglobin 28.8 pg (27.0-33.0); Mean Corpuscular Volume 92.5 fL (80.0-98.0); Monocytes Absolute Auto 0.3 X10*3/uL (0.1-1.2); Monocytes Percent Auto 2.4 % (2-11); Neutrophils Absolute Auto 12.1 x10*3/uL (2.0-8.3); Neutrophils Percent Auto 86.8 % (45-73); Platelet Count 717 X10*3/uL (160-400); Red Blood Count 3.61 X10*6/uL (4.20-5.50); Red Cell Distribution Width 13.8 % (11.0-16.0)
[2023-10-08] MEDS: Acetaminophen 325 MG TABLET 650 MG PO ×2 (13:53→21:44)
[2023-10-08] MEDS: Azithromycin 500 MG in 0.9 % Sodium Chloride 250 ML 125 MG IV (13:55)
[2023-10-08 14:14] LABS: B Type Natriuretic Peptide 15 pg/mL (<100)
[2023-10-08 14:15] LABS: Venous Blood Gas Refer to POC result
[2023-10-08 14:16] LABS: VBG Base Excess 3.3 mmol/L; VBG HCO3 28 mmol/L (22-26); VBG pCO2 44 mmHg; VBG pH 7.41 (7.32-7.43); VBG pO2 49 mmHg
[2023-10-08 14:17] LABS: Alanine Aminotransferase 14 U/L (0-31); Alkaline Phosphatase 84 U/L (39-117); Anion Gap 14 (12-20); Aspartate Amino Transferase 17 U/L (5-31); Bilirubin Direct 0.2 mg/dL (0.0-0.5); Bilirubin Total 0.6 mg/dL (0.0-1.0); Blood Urea Nitrogen 8 mg/dL (9-16); Calcium 9.7 mg/dL (8.4-10.2); Carbon Dioxide 29 mmol/L (22-29); Chloride 101 mmol/L (96-108); Creatinine Clr Calc Pharmacy 85.5; Estimated Glomerular Filt Rate > 60; Glucose Random 259 mg/dL (60-115); Lipase 29 U/L (8-78); Magnesium 1.8 mg/dL (1.6-2.6); Potassium 3.4 mmol/L (3.3-5.1); Sodium 141 mmol/L (135-145); Total Protein 8.1 g/dL (6.5-8.0)
[2023-10-08 14:17] LABS: Troponin-I High Sensitivity 3.7 ng/L (<3.5-17.0)
[2023-10-08] MEDS: 0.9 % Sodium Chloride 500 ML IV (14:20)
[2023-10-08] MEDS: cefTRIAXone sodium 1 GM in 0.9 % Sodium Chloride 50 ML IV (14:29)
[2023-10-08 14:31] LABS: Procalcitonin 0.04 ng/mL
--- NOTE | 2023-10-08 14:37 | PC.NURSE ---
2nd 20g IV placed in patients right forearm
[2023-10-08] MEDS: guaiFEN/Codeine SF 200/20/10ML 10 ML LIQUID 5 ML PO (14:54)
--- NOTE | 2023-10-08 15:00 | PC.NURSE ---
90% on RA, wheezing heard bilaterally, provider notified, respiratory called
[2023-10-08] MEDS: Magnesium Sulfate/H2O 2 GM/50 ML PIGGYBACK IV (15:17)
[2023-10-08 15:18] LABS: Influenza A PCR NEGATIVE (Negative); Influenza B PCR NEGATIVE (Negative); Resp Syncy Virus RNA Qual PCR NEGATIVE (Negative); SARS COV2 PCR INHOUSE NEGATIVE (Negative)
--- NOTE | 2023-10-08 15:20 | PC.NURSE ---
Azithromycin accidently charted as infused. Continues to infuse at 125mls/hr via IV pump
--- NOTE | 2023-10-08 15:25 | PHA.MEDREC ---
Pharmacy Consult ? Medication Reconciliation Pharmacy has completed the medication reconciliation. Patient's daughter had list of medications from pharmacy. Reported patient is on lantus 10 units. Patient took medications this morning. Susana Mancuso ,DrewD
[2023-10-08 15:42] LABS: Reflex Lactate? Lactic Acid Added
--- NOTE | 2023-10-08 16:30 | PC.NURSE ---
Patient hypotensive, stating feeling anxious, provider at bedside to assess.
[2023-10-08 16:38] LABS: ~Lactic Acid-LAB USE ONLY 8.3 mmol/L (0.5-2.0)
[2023-10-08] MEDS: Albuterol Sulfate (0.083%) 2.5 MG/3 ML VIAL.NEB 10 MG INHALE (16:40)
--- NOTE | 2023-10-08 16:48 | PC.NURSE ---
Respiratory at bedside , placed on highflow
[2023-10-08] MEDS: methylPREDNISolone Sod Succ 125 MG/2 ML VIAL IVPUSH (16:49)
[2023-10-08 17:53] LABS: VBG Base Excess -6.6 mmol/L; VBG HCO3 19 mmol/L (22-26); VBG pCO2 39 mmHg; VBG pH 7.29 (7.32-7.43); VBG pO2 87 mmHg
[2023-10-08 17:57] LABS: Venous Blood Gas Refer to POC result
[2023-10-08 18:02] LABS: Lactic Acid 9.2 mmol/L (0.5-2.0)
[2023-10-08 18:09] LABS: B Type Natriuretic Peptide 17 pg/mL (<100)
--- NOTE | 2023-10-08 18:09 | PC.NURSE ---
Patient remains on high flow, improved work of breathing. Grandson at bedside, patient alert and oriented speaking with grandson
[2023-10-08 18:15] LABS: Reflex Lactate? 2 Y
[2023-10-08 19:22] LABS: ~Lactic Acid-LAB USE ONLY 8.5 mmol/L (0.5-2.0)
[2023-10-08] MEDS: Heparin Sodium,Porcine 5,000 UNIT/ML VIAL 5000 UNIT SUBCUT (19:23)
[2023-10-08] MEDS: levoFLOXacin/D5W 500 MG/100 ML PIGGYBACK 100 MG IV (19:23)
[2023-10-08 19:47] LABS: Reflex Lactate? Lactic Acid Added
--- NOTE | 2023-10-08 20:07 | PC.NURSE ---
Patient is alert and oriented x3, Samoan speaking only. VSS. Patient reports chest pain resolved, patient continues to reports non-productive cough, she is on high flow O2, saturating 90-93%. Pure wick in place. Repeat lactic drawn and sent to lab for processing. Patient resting in a stretcher bed, call pierre in reach, patient's son at bed side. Plan to transfer to ICU at 23:00.
[2023-10-08 20:36] LABS: ~Lactic Acid-LAB USE ONLY 7.6 mmol/L (0.5-2.0)
--- NOTE | 2023-10-08 20:59 | PC.NURSE ---
Repeat lactic 7.6. Dr. Montejo notified.
[2023-10-08] MEDS: methylPREDNISolone Sod Succ 40 MG/ML VIAL IVPUSH (21:18)
--- NOTE | 2023-10-08 21:30 | PC.NURSE ---
Patient c/o 6/10 occipital headache started 10 min ago. VS: P 117, BP 124/65, O2 Sat 93% on high flow. Dr. Montejo notified.
--- NOTE | 2023-10-08 21:52 | PC.NURSE ---
Patient had episode of urinary incontinence, bed linens changed, tony care provided, pure wick reapplied. During bed linens change/tony care, patient's O2 Sat dropped to mid 70's and stayed low for 2 min. Patient's O2 Sat back to 90-93% on high flow when tony care complete.
--- NOTE | 2023-10-08 21:58 | PC.NURSE ---
Patient medicated with Tylenol 650 mg for headache.
[2023-10-08 22:06] LABS: Reflex Lactate? 2 Y
--- NOTE | 2023-10-08 22:07 | PC.NURSE ---
Patient continues to maintain stable O2 Sat 90-95% on high flow O2.
--- NOTE | 2023-10-08 23:00 | PC.NURSE ---
Patient report headache resolved.
[2023-10-09] VITALS (19 sets, daily range): BP systolic 116–160; BP diastolic 58–77; PULSE 78–98; RESP 18–36; TEMP 36–37; O2SAT 92–99; BMI 21.5
--- NOTE | 2023-10-09 00:53 | P.HPCC_ITS ---
History of Present Illness Date of Service: 10/09/23 Attending physician on admission: Maxx Montejo Chief Complaint: Dyspnea Ms. 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 Medical home team provided 2 duonebs and 125mg IV steroids. O2 was increased to 5L NC.? On arrival to the emergency room, the patient's blood pressure 137/54, heart rate 94, temp 98.6,? O2 sat 96% on 3L NC.? Laboratory data significant for WBC 14.0,? hemoglobin 10.4, hematocrit 33.4, platelet 717,? ESR 91, lactic acid initially 3.0 but as high as 9.2 while in the ER,? BNP 17, trop 3.7.? Procalcitonin 0.04. VBG showed a pH of 7.29, HCO3 19.? Respiratory panel negative for influenza type A and B and also RSV.? Full respiratory panel pending. Imaging: Initial CXR showed extensive interstitial lung disease but no consolidation. Repeat CXR 4 hours later suggested worsening interstitial prominence likely representing a combination of interstitial lung disease and superimposed atypical infection. ED course:? the patient was given? NS 500 mL, Solu-Medrol 125 mg, azithromycin 500 mg, ceftriaxone 1 g, albuterol x3, Mag sulfate 2 g, and Robitussin AC. She became tachypneic with a rate in the 40s and was started on high-flow. Review of Systems 2 Review of Systems: Yes all other systems are reviewed and are negative Constitutional: Constitutional: Reports no additional constitutional complaints and Denies headache(s) ENT: Denies headache(s) Cardiovascular: Cardiovascular: Denies chest pain, Denies Epigastric Pain and Reports dyspnea on exertion Respiratory: Respiratory: Reports no additional respiratory complaints, Denies cough, Denies excessive phlegm production, Reports dyspnea on exertion and Denies wheezing Gastrointestinal: Gastrointestinal: Denies abdominal pain, Denies diarrhea, Denies nausea and Denies vomiting Genitourinary: Genitourinary: Denies dysuria and Reports urinary incontinence Musculoskeletal: Musculoskeletal: Denies arthralgias, Denies muscle weakness, Denies numbness and Denies tingling Integumentary/Breasts: Skin/Breast: Denies rash and Denies wounds Neurologic: Denies headache(s), Denies numbness and Denies tingling Psychiatric: Psychiatric: Denies anxiety and Denies depression Allergic/Immunologic: Allergic/Immunologic: Denies wheezing PMFSH Past Medical History Medical History Asthma-COPD overlap syndrome Chronic respiratory failure Acute and chronic respiratory failure Pneumonitis Generalized anxiety disorder Urinary incontinence CVA (cerebral vascular accident) Osteopenia Lumbar spinal stenosis Interstitial pulmonary fibrosis Insomnia Cystocele Hypertension Hypercholesterolemia Type 2 diabetes mellitus with hyperglycemia Surgical History Surgical History Hx of section Social History Social History Housing: Apartment Alcohol intake: former Patient Tobacco Use Status: Never used Tobacco Smoked in Last 30 Days: No e-Cigarette/Vaping Use: Never Used Second Hand Smoke Exposure: No Use of substances other than those prescribed or required for medical reasons: No Advance Directives: No Advance Directives Information Provided: Yes Nutrition Risks: No Nutritional Risk service: No Current occupational status: retired Cognitive needs: Yes (Walker [employer] Cane at home) Hearing needs: No Vision needs: Yes Meds Allergies Allergy/AdvReac Type Severity Reaction Status Date / Time No Known Allergies Allergy Verified 10/08/23 13:28 Active Medications: Current Medications Acetaminophen (Acetaminophen 325 Mg Tablet) 650 mg PO Q6H PRN PRN Reason: Headache Last Admin: 10/08/23 21:44 Dose: 650 mg Heparin Sodium (Porcine) (Heparin Sodium,Porcine 5,000 Unit/Ml Vial) 5,000 unit SUBCUT Q8H [facility] Last Admin: 10/08/23 19:23 Dose: 5,000 unit Levofloxacin (Levaquin) 500 mg in 100 mls @ 100 mls/hr IV Q24H [facility] Last Infusion: 10/08/23 20:23 Dose: Infused Methylprednisolone Sodium Succinate (Methylprednisolone Sod Succ 40 Mg/Ml Vial) 40 mg IVPUSH Q6H [facility] Last Admin: 10/08/23 21:18 Dose: 40 mg Home Medications ?Medication ?Instructions ?Recorded ?Confirmed ?Last Taken ?Type Oxygen Home Use 10/23/22 04/27/23 Unknown History acetaminophen 500 mg tablet 1,000 mg PO TID PRN Pain 10/08/23 10/08/23 Unknown History albuterol sulfate 2.5 mg/3 mL 2.5 mg inhalation QID PRN 10/08/23 10/08/23 Unknown History (0.083 %) solution for nebulization Shortness Of Breath Or Wheezing insulin glargine 100 unit/mL (3 10 unit subcut DAILY@1400 10/08/23 10/08/23 Unknown History mL) subcutaneous pen (Lantus Solostar U-100 Insulin) Physical Exam 2 Vital Signs: Vital Signs: Last Vital Signs Temp 97.6 F 10/08/23 20:59 Pulse 116 H 10/08/23 20:59 Resp 22 H 10/08/23 23:50 BP 123/65 10/08/23 20:59 Pulse Ox 93 10/08/23 20:59 O2 Del Method High Flow Nasal C annula 10/08/23 20:59 O2 Flow Rate 45 10/08/23 16:48 Oxygen Flow Rate 3 10/08/23 13:31 BMI result Body Mass Index 23.1 Const: General: cooperative, no acute distress and alert O rientation/consciousness: patient oriented x3 (answering appropriately.) HEENT: Head: Yes normocephalic and Yes atraumatic General nose exam: Normal external nose present (Nares patent, septum midline, sinuses nontender bilaterally.) Mouth: Normal oral and palatal mucosa present (No thrush, tongue in midline, mucosa moist.) Teeth and gingiva: edentulous (pt has about 4 teeth) Throat: Yes other (No erythema, no exudate.) Eyes: Pupils: Pupils anisocoria right pupil size greater than left (pear shaped, fixed. Pt reports near blindness), Pupils not reactive on the right and Pupil size comments on the right 5 and on the left 2 Neck: Neck: Yes supple (no thyromegaly, trachea midline.) Carotids: normal carotid upstroke Resp: Auscultation: diminished lung sounds bilateral Cardio: Jugular venous distension: no JVD Rate: regular rate Rhythm: r egular rhythm Heart sounds: no gallops, no murmurs and no rubs Peripheral pulses: Peripheral pulses 2+ throughout GI: Palpation (GI): Soft to palpation (nondistended.) and nontender Skin: General skin exam: no rashes or lesions noted Neuro: General: patient oriented x3 (answering appropriately.) Extrem: General: Yes full ROM, Yes capillary refill normal and Yes no clubbing, cyanosis or edema Psych: Affect: normal affect Attitude: cooperative Results Labs 10/08/23 13:38 10/08/23 13:39 Labs: Laboratory Results - last 24 hr 10/08/23 10/08/23 10/08/23 13:38 13:39 13:53 MCV 92.5 MCH 28.8 MCHC 31.1 RDW 13.8 Plt Count 717 H MPV 9.0 L Immature Gran % (Auto) 0.3 Neut % (Auto) 86.8 H Lymph % (Auto) 9.5 L Mineral % (Auto) 2.4 Eos % (Auto) 0.6 Baso % (Auto) 0.4 Lymph # (Auto) 1.3 Mineral # (Auto) 0.3 Eos # (Auto) 0.1 Baso # (Auto) 0.1 Abs Immat Gran (auto) 0.04 H Absolute Neuts (auto) 12.1 H Absolute Nucleated RBC 0.000 Nucleated RBC % (auto) 0.0 VBG pH VBG pCO2 VBG pO2 VBG HCO3 VBG O2 Saturation VBG Base Excess Anion Gap 14 Estim Creat Clear Calc 85.5 Estimated GFR > 60 Random Glucose 259 H Lactic Acid 3.0 H* Lactic Acid F/U @ 2Hr Lactic Acid F/U @ 4Hr Calcium 9.7 Magnesium 1.8 Total Bilirubin 0.6 Direct Bilirubin 0.2 AST 17 ALT 14 Alkaline Phosphatase 84 Troponin I High Sens 3.7 B-Natriuretic Peptide 15 Total Protein 8.1 H Albumin 4.0 Lipase 29 Procalcitonin 0.04 Influenza Type A (PCR) NEGATIVE Influenza Type B (PCR) NEGATIVE RSV RNA Qual (PCR) NEGATIVE SARS-CoV-2 RNA (RT-PCR) NEGATIVE 10/08/23 10/08/23 10/08/23 14:04 16:11 17:42 MCV MCH MCHC RDW Plt Count MPV Immature Gran % (Auto) Neut % (Auto) Lymph % (Auto) Mineral % (Auto) Eos % (Auto) Baso % (Auto) Lymph # (Auto) Mineral # (Auto) Eos # (Auto) Baso # (Auto) Abs Immat Gran (auto) Absolute Neuts (auto) Absolute Nucleated RBC Nucleated RBC % (auto) VBG pH 7.41 VBG pCO2 44 VBG pO2 49 VBG HCO3 28 H VBG O2 Saturation 81.0 VBG Base Excess 3.3 Anion Gap Estim Creat Clear Calc Estimated GFR Random Glucose Lactic Acid 9.2 H* Lactic Acid F/U @ 2Hr 8.3 H* Lactic Acid F/U @ 4Hr Calcium Magnesium Total Bilirubin Direct Bilirubin AST ALT Alkaline Phosphatase Troponin I High Sens B-Natriuretic Peptide 17 Total Protein Albumin Lipase Procalcitonin Influenza Type A (PCR) Influenza Type B (PCR) RSV RNA Qual (PCR) SARS-CoV-2 RNA (RT-PCR) 10/08/23 10/08/23 10/08/23 17:45 18:45 20:04 MCV MCH MCHC RDW Plt Count MPV Immature Gran % (Auto) Neut % (Auto) Lymph % (Auto) Mineral % (Auto) Eos % (Auto) Baso % (Auto) Lymph # (Auto) Mineral # (Auto) Eos # (Auto) Baso # (Auto) Abs Immat Gran (auto) Absolute Neuts (auto) Absolute Nucleated RBC Nucleated RBC % (auto) VBG pH 7.29 L VBG pCO2 39 VBG pO2 87 VBG HCO3 19 L VBG O2 Saturation 97.0 VBG Base Excess -6.6 Anion Gap Estim Creat Clear Calc Estimated GFR Random Glucose Lactic Acid Lactic Acid F/U @ 2Hr 7.6 H* Lactic Acid F/U @ 4Hr 8.5 H* Calcium Magnesium Total Bilirubin Direct Bilirubin AST ALT Alkaline Phosphatase Troponin I High Sens B-Natriuretic Peptide Total Protein Albumin Lipase Procalcitonin Influenza Type A (PCR) Influenza Type B (PCR) RSV RNA Qual (PCR) SARS-CoV-2 RNA (RT-PCR) 10/08/23 22:39 MCV MCH MCHC RDW Plt Count MPV Immature Gran % (Auto) Neut % (Auto) Lymph % (Auto) Mineral % (Auto) Eos % (Auto) Baso % (Auto) Lymph # (Auto) Mineral # (Auto) Eos # (Auto) Baso # (Auto) Abs Immat Gran (auto) Absolute Neuts (auto) Absolute Nucleated RBC Nucleated RBC % (auto) VBG pH VBG pCO2 VBG pO2 VBG HCO3 VBG O2 Saturation VBG Base Excess Anion Gap Estim Creat Clear Calc Estimated GFR Random Glucose Lactic Acid Lactic Acid F/U @ 2Hr Lactic Acid F/U @ 4Hr 4.0 H* Calcium Magnesium Total Bilirubin Direct Bilirubin AST ALT Alkaline Phosphatase Troponin I High Sens B-Natriuretic Peptide Total Protein Albumin Lipase Procalcitonin Influenza Type A (PCR) Influenza Type B (PCR) RSV RNA Qual (PCR) SARS-CoV-2 RNA (RT-PCR) Imaging Radiologist's Impressions: Impressions Chest X-Ray 10/08/23 14:10 IMPRESSION: There is no consolidation within either lung. There is extensive interstitial lung disease characterized by interstitial prominence. A new linear opacity within the right mid lung may represent linear atelectasis versus progressive interstitial lung disease. A 9 mm nodular opacity within the right parahilar region may represent a lymph node versus a pulmonary nodule. Chest X-Ray 10/08/23 18:01 IMPRESSION: Worsening interstitial prominence likely representing superimposed infection on interstitial lung disease. Assessment and Plan (1) Acute and chronic respiratory failure: Qualifiers: Respiratory failure complication: hypoxia Qualified Code(s): J96.21 - Acute and chronic respiratory failure with hypoxia Status: Acute (2) Interstitial lung disease: Status: Acute (3) COPD with acute exacerbation: Status: Acute (4) Pneumonia: Qualifiers: Laterality: left Lung location: lower lobe of lung Pneumonia type: due to unspecified organism Qualified Code(s): J18.9 - Pneumonia, unspecified organism Status: Acute (5) Elevated WBC count: Qualifiers: Leukocytosis type: unspecified Qualified Code(s): D72.829 - Elevated white blood cell count, unspecified Status: Acute (6) Acidosis, lactic: Status: Acute (7) H/O thrombocytosis: Status: Acute (8) Thrombocytosis: Status: Chronic Plan 82 yo female with PMH Of 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 Neuro: No acute issues. Cardiac: No acute issues. Pulmonary: History of extensive interstitial lung disease on chronic O2. Pneumonia, possibly viral. Solu-Medrol q.6 hours. Levaquin. Titrate off Hi-flow oxygen as able. Renal: Lactic acidosis possibly due to albuterol use. Now trending down. Hold albuterol. VBG, lactic acid in AM. Endo: No acute issues. SS insulin per protocol. GI: No acute issues. ID: Sepsis not suspected. Lactic acidosis likely due to albuterol. Respiratory panel pending; possible viral infection. Blood cultures pending. UA sent. Pt? was treated with empiric antibiotics in the emergency room. Heme/Onc: No acute issues. Underlying anemia, thrombocytosis.? Psych:? No acute issues. Miscellaneous:? No acute issues. Prophylaxis:? Heparin, pneumatic hoses.? Diet: Diabetic Total time managing care of this patient today: 60 minutes.
[2023-10-09 01:01] LABS: Glucose, Whole Blood 320 mg/dL (60-115)
[2023-10-09] MEDS: Insulin Lispro 100 UNIT/ML 3 ML VIAL SUBCUT ×5 (01:48→22:09)
[2023-10-09 01:50] LABS: Appearance Urine Clear; Color Urine Yellow; Glucose Urine UA >=1000 mg/dL (Negative); Leukocyte Esterase Urine Negative (Negative); Nitrite Urine Negative (Negative); Specific Gravity - Urine >= 1.030 (1.005-1.025); UMIC TRIGGER UACC YES; Urine Blood Negative (Negative); Urine Ketones 15 mg/dL (Negative); Urine Protein Negative (Neg-Trace)
[2023-10-09 02:21] LABS: Bacteria Urine None Seen (None Seen); Hyaline Casts Urine 0-2 /LPF (0-2); RBC Urine 0-2 /HPF (0-2); Squamous Epithelial Cell Urine 0-2 /HPF (0-2); WBC Urine 0-5 /HPF (0-5)
[2023-10-09] MEDS: Heparin Sodium,Porcine 5,000 UNIT/ML VIAL 5000 UNIT SUBCUT ×3 (04:50→22:08)
[2023-10-09] MEDS: methylPREDNISolone Sod Succ 40 MG/ML VIAL IVPUSH ×4 (04:50→22:08)
[2023-10-09 05:14] LABS: VBG Base Excess 6.1 mmol/L; VBG HCO3 29 mmol/L (22-26); VBG pCO2 38 mmHg; VBG pH 7.49 (7.32-7.43); VBG pO2 42 mmHg
[2023-10-09 05:42] LABS: MANUAL DIFF FLAG NO
[2023-10-09 05:44] LABS: Basophils Percent Auto 0.1 % (0-2); Eosinophils Percent Auto 0.3 % (0-4); Hematocrit 29.1 % (37.0-47.0); Hemoglobin 9.2 g/dl (12.0-16.0); Imm Gran Abs Auto 0.04 X10*3/uL (0.00-0.03); Imm Gran Pct Auto 0.3 % (0.0-0.4); Lymphocytes Absolute Auto 1.4 X10*3/uL (1.2-4.9); Lymphocytes Percent Auto 10.5 % (20-40); Mean Corpuscular HGB Conc 31.6 g/dl (31.0-35.0); Mean Corpuscular Hemoglobin 28.5 pg (27.0-33.0); Mean Corpuscular Volume 90.1 fL (80.0-98.0); Monocytes Absolute Auto 0.8 X10*3/uL (0.1-1.2); Monocytes Percent Auto 5.8 % (2-11); Platelet Count 700 X10*3/uL (160-400); Red Blood Count 3.23 X10*6/uL (4.20-5.50); White Blood Count 13.2 X10*3/uL (4.8-10.8)
[2023-10-09 05:53] LABS: Lactic Acid 1.7 mmol/L (0.5-2.0)
[2023-10-09 05:57] LABS: Albumin Level 3.5 g/dL (3.5-5.0); Anion Gap 11 (12-20); Blood Urea Nitrogen 8 mg/dL (9-16); Calcium 9.5 mg/dL (8.4-10.2); Carbon Dioxide 28 mmol/L (22-29); Chloride 106 mmol/L (96-108); Creatinine Clr Calc Pharmacy 62.4; Estimated Glomerular Filt Rate > 60; Glucose Random 192 mg/dL (60-115); Magnesium 2.4 mg/dL (1.6-2.6); Phosphorus 3.3 mg/dL (2.7-4.5); Potassium 3.4 mmol/L (3.3-5.1); Sodium 142 mmol/L (135-145)
[2023-10-09 07:50] LABS: Glucose, Whole Blood 217 mg/dL (60-115)
--- NOTE | 2023-10-09 09:11 | MHC.CM.PN ---
Patient is unavailable; CM spoke with Daughter/Alternate HCP/only Contact/Kylee @ [phone] and addressed IMM with her (original will be mailed certified mail to Kylee and a copy has been placed on the chart). Patient lives in an apartment with her /Primary HCP/Michael @ [phone] and she uses a walker to assist with mobility. Patient receives [address] [employer] AND hours/week and home O2 through [employer]. Home/resume said services is the goal and CM has initiated and will follow for dc planning. PCP is Dr. Ciro Daniel. CM attempted to call Dr. Daniel's office at Ext. [phone], where Kylee indicates a copy of the HCP is, but no answer.
[2023-10-09 11:36] LABS: Venous Blood Gas Refer to POC result
[2023-10-09] MEDS: Albuterol/Iprat 2.5/0.5MG 3 ML AMPUL.NEB INHALE ×3 (11:39→19:50)
[2023-10-09 11:40] LABS: Glucose, Whole Blood 336 mg/dL (60-115)
[2023-10-09 12:35] LABS: Adenovirus PCR Not Detected (Not Detect.); Bordetella parapertussis PCR Not Detected (Not Detect.); Bordetella pertussis PCR Not Detected (Not Detect.); Chlamydia pneumoniae PCR Not Detected (Not Detect.); Coronavirus 229E PCR Not Detected (Not Detect.); Coronavirus HKU1 PCR Not Detected (Not Detect.); Coronavirus NL63 PCR Not Detected (Not Detect.); Coronavirus OC43 PCR Not Detected (Not Detect.); Human metapneumovirus PCR Not Detected (Not Detect.); Influenza A PCR Not Detected (Not Detect.); Influenza B PCR Not Detected (Not Detect.); Mycoplasma pneumoniae PCR Not Detected (Not Detect.); Parainfluenza 1 PCR Not Detected (Not Detect.); Parainfluenza 2 PCR Not Detected (Not Detect.); Parainfluenza 3 PCR Not Detected (Not Detect.); Parainfluenza 4 PCR Not Detected (Not Detect.); RSV PCR Not Detected (Not Detect.); Rhino/Enterovirus PCR Detected (Not Detect.)
[2023-10-09 13:57] LABS: SARS-CoV-2 PCR Not Detected (Not Detect.)
--- NOTE | 2023-10-09 15:10 | P.PNIM_ITS ---
Subjective Subjective Date of Service: 10/09/23 Interval History: Acute hypoxemic respiratory failure Review of Systems Short of breath somewhat improving, still on high-flow Has cough No fever Physical Exam 2 Vital Signs: Vital Signs: Last Vital Signs Temp 97.8 F 10/09/23 11:15 Pulse 90 10/09/23 11:41 Resp 20 10/09/23 11:41 BP 124/65 10/09/23 11:15 Pulse Ox 92 10/09/23 11:15 O2 Del Method High Flow Nasal C annula 10/09/23 11:15 O2 Flow Rate 40 10/09/23 11:15 FiO2 32 10/09/23 11:15 Oxygen Flow Rate 3 10/08/23 13:31 BMI result Body Mass Index 21.5 Appearance: Alert.? Oriented X3.? cvs: rrr, [id number] , no murmur res: air entry diminshed ,has b/l exp wheezing abd: no rebound or guarding ,nt, bs present. ext pulses present , no cyanosis . neuro: axo3 , nonfocal. Objective Data Active Medications Acetaminophen (Acetaminophen 325 Mg Tablet) 650 mg PO Q6H PRN PRN Reason: Headache Last Admin: 10/08/23 21:44 Dose: 650 mg Documented By: FARZAD Albuterol/Ipratropium (Albuterol/Iprat 2.5/0.5mg 3 Ml Ampul.Neb) 3 ml INHALE RQ4H WHILE AWAKE [facility] Last Admin: 10/09/23 11:39 Dose: 3 ml Documented By: RHONA Albuterol/Ipratropium (Albuterol/Iprat 2.5/0.5mg 3 Ml Ampul.Neb) 3 ml INHALE Q3H PRN PRN Reason: sob Heparin Sodium (Porcine) (Heparin Sodium,Porcine 5,000 Unit/Ml Vial) 5,000 unit SUBCUT Q8H [facility] Last Admin: 10/09/23 11:49 Dose: 5,000 unit Documented By: ZAIN Levofloxacin (Levaquin) 500 mg in 100 mls @ 100 mls/hr IV Q24H [facility] Last Infusion: 10/08/23 20:23 Dose: Infused Documented By: FARZAD Insulin Human Lispro (Insulin Lispro 100 Unit/Ml 3 Ml Vial) 0 unit SUBCUT QIDACHS [facility]; Protocol Last Admin: 10/09/23 11:48 Dose: 8 unit Documented By: ZAIN Methylprednisolone Sodium Succinate (Methylprednisolone Sod Succ 40 Mg/Ml Vial) 40 mg IVPUSH Q6H [facility] Last Admin: 10/09/23 10:58 Dose: 40 mg Documented By: ZAIN Labs 10/09/23 05:07 10/09/23 05:07 Labs: Laboratory Results - last 24 hr 10/08/23 10/08/23 10/08/23 13:53 13:53 16:11 MCV MCH MCHC RDW Plt Count MPV Immature Gran % (Auto) Neut % (Auto) Lymph % (Auto) Benzie % (Auto) Eos % (Auto) Baso % (Auto) Lymph # (Auto) Benzie # (Auto) Eos # (Auto) Baso # (Auto) Abs Immat Gran (auto) Absolute Neuts (auto) Absolute Nucleated RBC Nucleated RBC % (auto) VBG pH VBG pCO2 VBG pO2 VBG HCO3 VBG O2 Saturation VBG Base Excess Anion Gap Estim Creat Clear Calc Estimated GFR POC Glucose Random Glucose Lactic Acid Lactic Acid F/U @ 2Hr 8.3 H* Lactic Acid F/U @ 4Hr Calcium Phosphorus Magnesium B-Natriuretic Peptide Albumin Urine Color Urine Appearance Urine pH Ur Specific Largo Urine Protein Urine Glucose (UA) Urine Ketones Urine Blood Urine Nitrite Ur Leukocyte Esterase Urine RBC Urine WBC Ur Squamous Epith Cells Urine Bacteria Hyaline Casts Respiratory Panel Malik See Note Adenovirus (Rapid PCR) Not Detected B.pert (TEM-PCR) Not Detected B.parapertussis DNA PCR Not Detected C. pneumoniae DNA (PCR) Not Detected Coronavirus OC43 (PCR) Not Detected Coronavirus HKU1 (PCR) Not Detected Coronavirus 229E (PCR) Not Detected Coronavirus NL63 (PCR) Not Detected Human Metapneumovir PCR Not Detected Influenza A (RT-PCR) Not Detected Influenza Type A (PCR) NEGATIVE Influenza B (RT-PCR) Not Detected Influenza Type B (PCR) NEGATIVE M. pneumoniae (PCR) Not Detected Parainfluenza 1 (PCR) Not Detected Parainfluenza 2 (PCR) Not Detected Parainfluenza 3 (PCR) Not Detected Parainfluenza 4 (PCR) Not Detected RSV (PCR) Not Detected RSV RNA Qual (PCR) NEGATIVE Entero/Rhino (PCR) Detected A SARS-CoV-2 RNA (RT-PCR) NEGATIVE Not Detected 10/08/23 10/08/23 10/08/23 17:42 17:45 18:45 MCV MCH MCHC RDW Plt Count MPV Immature Gran % (Auto) Neut % (Auto) Lymph % (Auto) Benzie % (Auto) Eos % (Auto) Baso % (Auto) Lymph # (Auto) Benzie # (Auto) Eos # (Auto) Baso # (Auto) Abs Immat Gran (auto) Absolute Neuts (auto) Absolute Nucleated RBC Nucleated RBC % (auto) VBG pH 7.29 L VBG pCO2 39 VBG pO2 87 VBG HCO3 19 L VBG O2 Saturation 97.0 VBG Base Excess -6.6 Anion Gap Estim Creat Clear Calc Estimated GFR POC Glucose Random Glucose Lactic Acid 9.2 H* Lactic Acid F/U @ 2Hr Lactic Acid F/U @ 4Hr 8.5 H* Calcium Phosphorus Magnesium B-Natriuretic Peptide 17 Albumin Urine Color Urine Appearance Urine pH Ur Specific Largo Urine Protein Urine Glucose (UA) Urine Ketones Urine Blood Urine Nitrite Ur Leukocyte Esterase Urine RBC Urine WBC Ur Squamous Epith Cells Urine Bacteria Hyaline Casts Respiratory Panel Malik Adenovirus (Rapid PCR) B.pert (TEM-PCR) B.parapertussis DNA PCR C. pneumoniae DNA (PCR) Coronavirus OC43 (PCR) Coronavirus HKU1 (PCR) Coronavirus 229E (PCR) Coronavirus NL63 (PCR) Human Metapneumovir PCR Influenza A (RT-PCR) Influenza Type A (PCR) Influenza B (RT-PCR) Influenza Type B (PCR) M. pneumoniae (PCR) Parainfluenza 1 (PCR) Parainfluenza 2 (PCR) Parainfluenza 3 (PCR) Parainfluenza 4 (PCR) RSV (PCR) RSV RNA Qual (PCR) Entero/Rhino (PCR) SARS-CoV-2 RNA (RT-PCR) 10/08/23 10/08/23 10/09/23 20:04 22:39 00:57 MCV MCH MCHC RDW Plt Count MPV Immature Gran % (Auto) Neut % (Auto) Lymph % (Auto) Benzie % (Auto) Eos % (Auto) Baso % (Auto) Lymph # (Auto) Benzie # (Auto) Eos # (Auto) Baso # (Auto) Abs Immat Gran (auto) Absolute Neuts (auto) Absolute Nucleated RBC Nucleated RBC % (auto) VBG pH VBG pCO2 VBG pO2 VBG HCO3 VBG O2 Saturation VBG Base Excess Anion Gap Estim Creat Clear Calc Estimated GFR POC Glucose 320 H Random Glucose Lactic Acid Lactic Acid F/U @ 2Hr 7.6 H* Lactic Acid F/U @ 4Hr 4.0 H* Calcium Phosphorus Magnesium B-Natriuretic Peptide Albumin Urine Color Urine Appearance Urine pH Ur Specific Largo Urine Protein Urine Glucose (UA) Urine Ketones Urine Blood Urine Nitrite Ur Leukocyte Esterase Urine RBC Urine WBC Ur Squamous Epith Cells Urine Bacteria Hyaline Casts Respiratory Panel Malik Adenovirus (Rapid PCR) B.pert (TEM-PCR) B.parapertussis DNA PCR C. pneumoniae DNA (PCR) Coronavirus OC43 (PCR) Coronavirus HKU1 (PCR) Coronavirus 229E (PCR) Coronavirus NL63 (PCR) Human Metapneumovir PCR Influenza A (RT-PCR) Influenza Type A (PCR) Influenza B (RT-PCR) Influenza Type B (PCR) M. pneumoniae (PCR) Parainfluenza 1 (PCR) Parainfluenza 2 (PCR) Parainfluenza 3 (PCR) Parainfluenza 4 (PCR) RSV (PCR) RSV RNA Qual (PCR) Entero/Rhino (PCR) SARS-CoV-2 RNA (RT-PCR) 10/09/23 10/09/23 10/09/23 01:37 05:06 05:07 MCV 90.1 MCH 28.5 MCHC 31.6 RDW 14.0 Plt Count 700 H MPV 9.0 L Immature Gran % (Auto) 0.3 Neut % (Auto) 83.0 H Lymph % (Auto) 10.5 L Benzie % (Auto) 5.8 Eos % (Auto) 0.3 Baso % (Auto) 0.1 Lymph # (Auto) 1.4 Benzie # (Auto) 0.8 Eos # (Auto) 0.0 Baso # (Auto) 0.0 Abs Immat Gran (auto) 0.04 H Absolute Neuts (auto) 11.0 H Absolute Nucleated RBC 0.000 Nucleated RBC % (auto) 0.0 VBG pH 7.49 H VBG pCO2 38 VBG pO2 42 VBG HCO3 29 H VBG O2 Saturation 72.0 VBG Base Excess 6.1 Anion Gap 11 L Estim Creat Clear Calc 62.4 Estimated GFR > 60 POC Glucose Random Glucose 192 H Lactic Acid 1.7 Lactic Acid F/U @ 2Hr Lactic Acid F/U @ 4Hr Calcium 9.5 Phosphorus 3.3 Magnesium 2.4 B-Natriuretic Peptide Albumin 3.5 Urine Color Yellow Urine Appearance Clear Urine pH 5.0 Ur Specific Largo >= 1.030 H Urine Protein Negative Urine Glucose (UA) >=1000 H Urine Ketones 15 Urine Blood Negative Urine Nitrite Negative Ur Leukocyte Esterase Negative Urine RBC 0-2 Urine WBC 0-5 Ur Squamous Epith Cells 0-2 Urine Bacteria None Seen Hyaline Casts 0-2 Respiratory Panel Malik Adenovirus (Rapid PCR) B.pert (TEM-PCR) B.parapertussis DNA PCR C. pneumoniae DNA (PCR) Coronavirus OC43 (PCR) Coronavirus HKU1 (PCR) Coronavirus 229E (PCR) Coronavirus NL63 (PCR) Human Metapneumovir PCR Influenza A (RT-PCR) Influenza Type A (PCR) Influenza B (RT-PCR) Influenza Type B (PCR) M. pneumoniae (PCR) Parainfluenza 1 (PCR) Parainfluenza 2 (PCR) Parainfluenza 3 (PCR) Parainfluenza 4 (PCR) RSV (PCR) RSV RNA Qual (PCR) Entero/Rhino (PCR) SARS-CoV-2 RNA (RT-PCR) 10/09/23 10/09/23 07:44 11:35 MCV MCH MCHC RDW Plt Count MPV Immature Gran % (Auto) Neut % (Auto) Lymph % (Auto) Benzie % (Auto) Eos % (Auto) Baso % (Auto) Lymph # (Auto) Benzie # (Auto) Eos # (Auto) Baso # (Auto) Abs Immat Gran (auto) Absolute Neuts (auto) Absolute Nucleated RBC Nucleated RBC % (auto) VBG pH VBG pCO2 VBG pO2 VBG HCO3 VBG O2 Saturation VBG Base Excess Anion Gap Estim Creat Clear Calc Estimated GFR POC Glucose 217 H 336 H Random Glucose Lactic Acid Lactic Acid F/U @ 2Hr Lactic Acid F/U @ 4Hr Calcium Phosphorus Magnesium B-Natriuretic Peptide Albumin Urine Color Urine Appearance Urine pH Ur Specific Largo Urine Protein Urine Glucose (UA) Urine Ketones Urine Blood Urine Nitrite Ur Leukocyte Esterase Urine RBC Urine WBC Ur Squamous Epith Cells Urine Bacteria Hyaline Casts Respiratory Panel Malik Adenovirus (Rapid PCR) B.pert (TEM-PCR) B.parapertussis DNA PCR C. pneumoniae DNA (PCR) Coronavirus OC43 (PCR) Coronavirus HKU1 (PCR) Coronavirus 229E (PCR) Coronavirus NL63 (PCR) Human Metapneumovir PCR Influenza A (RT-PCR) Influenza Type A (PCR) Influenza B (RT-PCR) Influenza Type B (PCR) M. pneumoniae (PCR) Parainfluenza 1 (PCR) Parainfluenza 2 (PCR) Parainfluenza 3 (PCR) Parainfluenza 4 (PCR) RSV (PCR) RSV RNA Qual (PCR) Entero/Rhino (PCR) SARS-CoV-2 RNA (RT-PCR) Assessment and Plan (1) COPD with acute exacerbation: Status: Acute Plan 82-year-old female with interstitial lung disease uncontrolled diabetes mellitus hypertension hypercholesterolemia, COPD asthma overlap syndrome/ interstitial lung disease: Came to the hospital because URI like symptoms-found to have acute hypoxemic respiratory failure possib to asthma COPD overlap syndrome, possible pneumonitis possible viral (enetro/rhino): Patient initially had acute hypoxemic respiratory failure secondary to above, acute lactic acidosis-went to ICU: On high-flow, nebs, steroids, antibiotics Patient respiratory status seems to be improving, still on high-flow: Downgraded to the floor. Acute hypoxemic respiratory failure secondary to COPD exacerbation/pneumonitis viral Blood culture pending Acute lactic acidosis improved thought to be related to nebs. Plan: Continue high-flow oxygen, nebs, steroids, antibiotics cough medication loratadine. d/w ICu in detail. ILd: Continue home meds,hold po prednisone until on iv steriods. Htn :continue losartan. hlp: continue statin. dm with hyperglycemia: sec to steriods continue insulin current regimen,added home glipizide, hold metformin. dvt and gi prophylax: ppi& heparin s/c Ongoing hospitalization need: Acute hypoxemic respiratory failure secondary to COPD asthma overlap syndrome exacerbation, viral URI, diabetes with hyperglycemia: Patient is currently on high-flow oxygen, nebs, steroids, antibiotics, also need adjustment in diabetic insulin regimen Quality Stroke Does the patient have a stroke diagnosis?: No VTE Prior VTE?: No VTE Risk Level:: Medical - moderate - high VTE Device Contraindication: Treatment Not Indicated VTE Drug Contraindication: N/A - Med Ordered
[2023-10-09 16:53] LABS: Glucose, Whole Blood 236 mg/dL (60-115)
[2023-10-09] MEDS: Aspirin Enteric Coated 81 MG TABLET.DR PO (16:53)
[2023-10-09] MEDS: Omeprazole 20 MG CAPSULE.DR PO (16:53)
[2023-10-09] MEDS: DULoxetine HCl 60 MG CAPSULE.DR PO (16:53)
[2023-10-09] MEDS: glipiZIDE 5 MG TABLET PO (16:53)
[2023-10-09] MEDS: Loratadine 10 MG TABLET PO (16:53)
[2023-10-09 20:42] LABS: Glucose, Whole Blood 228 mg/dL (60-115)
[2023-10-09] MEDS: mycophenolate mofetiL 250 MG CAPSULE 500 MG PO (22:08)
[2023-10-09] MEDS: Atorvastatin Calcium 40 MG TABLET PO (22:08)
[2023-10-09] MEDS: levoFLOXacin/D5W 500 MG/100 ML PIGGYBACK 100 MG IV (22:08)
[2023-10-09] MEDS: Acetaminophen 325 MG TABLET 650 MG PO (22:09)
[2023-10-09] MEDS: Gabapentin 300 MG CAPSULE PO (22:09)
--- NOTE | 2023-10-09 22:29 | ECG_ITS ---
Test Reason : CP Blood Pressure : / mmHG Vent. Rate : 080 BPM Atrial Rate : 080 BPM P-R Int : 120 ms QRS Dur : 080 ms QT Int : 416 ms P-R-T Axes : 000 205 153 degrees QTc Int : 479 ms Sinus rhythm with Premature atrial complexes with Aberrant conduction Right superior axis deviation Nonspecific T wave abnormality Abnormal ECG When compared with ECG of 08-OCT-2023 13:20, Questionable change in QRS axis Referred By: Julio Cesar Gregory Electronically Signed By:MANUEL JOINER
[2023-10-09] MEDS: Aspirin 325 MG TABLET PO (23:35)
[2023-10-09] MEDS: guaiFENesin DM 200/20/10 ML 10 ML SYRUP PO (23:36)
[2023-10-09 23:47] LABS: Troponin-I High Sensitivity 23.3 ng/L (<3.5-17.0)
[2023-10-10] VITALS (14 sets, daily range): BP systolic 137–155; BP diastolic 63–84; PULSE 73–91; RESP 18–22; TEMP 36.1–36.8; O2SAT 95–100; BMI 23.2
[2023-10-10 03:20] LABS: Troponin-I High Sensitivity 19.8 ng/L (<3.5-17.0)
[2023-10-10] MEDS: Heparin Sodium,Porcine 5,000 UNIT/ML VIAL 5000 UNIT SUBCUT ×3 (05:23→21:25)
[2023-10-10] MEDS: methylPREDNISolone Sod Succ 40 MG/ML VIAL IVPUSH ×4 (05:23→21:26)
[2023-10-10] MEDS: Omeprazole 20 MG CAPSULE.DR PO ×2 (05:24→16:55)
[2023-10-10 07:31] LABS: Glucose, Whole Blood 207 mg/dL (60-115)
[2023-10-10] MEDS: Albuterol/Iprat 2.5/0.5MG 3 ML AMPUL.NEB INHALE ×4 (07:34→19:40)
[2023-10-10] MEDS: Insulin Lispro 100 UNIT/ML 3 ML VIAL SUBCUT ×3 (07:38→16:55)
[2023-10-10] MEDS: mycophenolate mofetiL 250 MG CAPSULE 500 MG PO ×2 (08:14→21:25)
[2023-10-10] MEDS: Losartan Potassium 50 MG TABLET PO (08:15)
[2023-10-10] MEDS: Loratadine 10 MG TABLET PO (08:15)
[2023-10-10] MEDS: Aspirin Enteric Coated 81 MG TABLET.DR PO (08:15)
[2023-10-10] MEDS: glipiZIDE 5 MG TABLET PO (08:15)
[2023-10-10] MEDS: DULoxetine HCl 60 MG CAPSULE.DR PO (08:15)
[2023-10-10 09:18] LABS: Hematocrit 30.1 % (37.0-47.0); Hemoglobin 9.6 g/dl (12.0-16.0); Mean Corpuscular HGB Conc 31.9 g/dl (31.0-35.0); Mean Corpuscular Hemoglobin 28.7 pg (27.0-33.0); Mean Corpuscular Volume 89.9 fL (80.0-98.0); Mean Platelet Volume 9.3 fL (9.4-12.3); Platelet Count 751 X10*3/uL (160-400); Red Blood Count 3.35 X10*6/uL (4.20-5.50); Red Cell Distribution Width 14.2 % (11.0-16.0); White Blood Count 19.4 X10*3/uL (4.8-10.8)
[2023-10-10] MEDS: Furosemide 20 MG/2 ML VIAL IVPUSH (10:42)
[2023-10-10 11:28] LABS: Glucose, Whole Blood 288 mg/dL (60-115)
--- NOTE | 2023-10-10 12:19 | P.PNIM_ITS ---
Subjective Subjective Date of Service: 10/10/23 Interval History: Acute hypoxemic respiratory failure Review of Systems Short of breath somewhat improving, still on high-flow Has cough No fever Physical Exam 2 Vital Signs: Vital Signs: Last Vital Signs Temp 96.9 F 10/10/23 11:14 Pulse 85 10/10/23 11:22 Resp 20 10/10/23 11:22 BP 139/79 10/10/23 11:14 Pulse Ox 98 10/10/23 11:14 O2 Del Method High Flow Nasal C annula 10/10/23 11:14 O2 Flow Rate 32 10/10/23 12:04 FiO2 35 10/10/23 12:04 Oxygen Flow Rate 3 10/08/23 13:31 BMI result Body Mass Index 23.2 Appearance: Alert.? Oriented X3.? cvs: [id number], [id number] , no murmur res: air entry diminshed ,has b/l exp wheezing abd: no rebound or guarding ,nt, bs present. ext pulses present , no cyanosis . neuro: axo3 , nonfocal. Objective Data Active Medications Acetaminophen (Acetaminophen 325 Mg Tablet) 650 mg PO Q6H PRN PRN Reason: Headache Last Admin: 10/09/23 22:09 Dose: 650 mg Documented By: MILLA Albuterol/Ipratropium (Albuterol/Iprat 2.5/0.5mg 3 Ml Ampul.Neb) 3 ml INHALE RQ4H WHILE AWAKE [facility] Last Admin: 10/10/23 11:22 Dose: 3 ml Documented By: RHONA Albuterol/Ipratropium (Albuterol/Iprat 2.5/0.5mg 3 Ml Ampul.Neb) 3 ml INHALE Q3H PRN PRN Reason: sob Aspirin (Aspirin Enteric Coated 81 Mg Tablet.) 81 mg PO DAILY [facility] Last Admin: 10/10/23 08:15 Dose: 81 mg Documented By: ZAIN Atorvastatin Calcium (Atorvastatin Calcium 40 Mg Tablet) 40 mg PO BEDTIME [facility] Last Admin: 10/09/23 22:08 Dose: 40 mg Documented By: MILLA Duloxetine HCl (Duloxetine Hcl 60 Mg Capsule.) 60 mg PO DAILY [facility] Last Admin: 10/10/23 08:15 Dose: 60 mg Documented By: ZAIN Gabapentin (Gabapentin 300 Mg Capsule) 300 mg PO BEDTIME [facility] Last Admin: 10/09/23 22:09 Dose: 300 mg Documented By: MILLA Glipizide (Glipizide 5 Mg Tablet) 5 mg PO DAILY [facility] Last Admin: 10/10/23 08:15 Dose: 5 mg Documented By: ZAIN Guaifenesin/Dextromethorphan (Guaifenesin Dm 200/20/10 Ml 10 Ml Syrup) 10 ml PO Q4H PRN PRN Reason: cough Last Admin: 10/09/23 23:36 Dose: 10 ml Documented By: MILLA Comments: Cough Heparin Sodium (Porcine) (Heparin Sodium,Porcine 5,000 Unit/Ml Vial) 5,000 unit SUBCUT Q8H [facility] Last Admin: 10/10/23 11:59 Dose: 5,000 unit Documented By: ZAIN Levofloxacin (Levaquin) 500 mg in 100 mls @ 100 mls/hr IV Q24H [facility] Last Infusion: 10/09/23 23:39 Dose: Infused Documented By: MILLA Insulin Glargine (Insulin Glargine,Hum.Rec.Anlog 100 Unit/Ml 10 Ml Vial) 10 unit SUBCUT DAILY@1400 CRISTIAN Insulin Human Lispro (Insulin Lispro 100 Unit/Ml 3 Ml Vial) 0 unit SUBCUT QIDACHS [facility]; Protocol Last Admin: 10/10/23 11:55 Dose: 8 unit Documented By: ZAIN Loratadine (Loratadine 10 Mg Tablet) 10 mg PO DAILY [facility] Last Admin: 10/10/23 08:15 Dose: 10 mg Documented By: ZAIN Losartan Potassium (Losartan Potassium 50 Mg Tablet) 50 mg PO DAILY [facility]; Protocol Last Admin: 10/10/23 08:15 Dose: 50 mg Documented By: ZAIN Methylprednisolone Sodium Succinate (Methylprednisolone Sod Succ 40 Mg/Ml Vial) 40 mg IVPUSH Q6H [facility] Last Admin: 10/10/23 10:42 Dose: 40 mg Documented By: ZAIN Mycophenolate Mofetil (Mycophenolate Mofetil 250 Mg Capsule) 500 mg PO BID [facility] Last Admin: 10/10/23 08:14 Dose: 500 mg Documented By: ZAIN Omeprazole (Omeprazole 20 Mg Capsule.) 20 mg PO BID@0630,1630 [facility] Last Admin: 10/10/23 05:24 Dose: 20 mg Documented By: BRENDAMemo Tamsulosin HCl (Tamsulosin Hcl 0.4 Mg Capsule) 0.4 mg PO BEDTIME [facility] Labs 10/10/23 08:54 10/09/23 05:07 Labs: Laboratory Results - last 24 hr 10/08/23 10/09/23 10/09/23 13:53 16:48 20:37 MCV MCH MCHC RDW Plt Count MPV Absolute Nucleated RBC Nucleated RBC % (auto) POC Glucose 236 H 228 H Troponin I High Sens Respiratory Panel Malik See Note Adenovirus (Rapid PCR) Not Detected B.pert (TEM-PCR) Not Detected B.parapertussis DNA PCR Not Detected C. pneumoniae DNA (PCR) Not Detected Coronavirus OC43 (PCR) Not Detected Coronavirus HKU1 (PCR) Not Detected Coronavirus 229E (PCR) Not Detected Coronavirus NL63 (PCR) Not Detected Human Metapneumovir PCR Not Detected Influenza A (RT-PCR) Not Detected Influenza B (RT-PCR) Not Detected M. pneumoniae (PCR) Not Detected Parainfluenza 1 (PCR) Not Detected Parainfluenza 2 (PCR) Not Detected Parainfluenza 3 (PCR) Not Detected Parainfluenza 4 (PCR) Not Detected RSV (PCR) Not Detected Entero/Rhino (PCR) Detected A SARS-CoV-2 RNA (RT-PCR) Not Detected 10/09/23 10/10/23 10/10/23 23:20 02:49 07:24 MCV MCH MCHC RDW Plt Count MPV Absolute Nucleated RBC Nucleated RBC % (auto) POC Glucose 207 H Troponin I High Sens 23.3 H D 19.8 H Respiratory Panel Malik Adenovirus (Rapid PCR) B.pert (TEM-PCR) B.parapertussis DNA PCR C. pneumoniae DNA (PCR) Coronavirus OC43 (PCR) Coronavirus HKU1 (PCR) Coronavirus 229E (PCR) Coronavirus NL63 (PCR) Human Metapneumovir PCR Influenza A (RT-PCR) Influenza B (RT-PCR) M. pneumoniae (PCR) Parainfluenza 1 (PCR) Parainfluenza 2 (PCR) Parainfluenza 3 (PCR) Parainfluenza 4 (PCR) RSV (PCR) Entero/Rhino (PCR) SARS-CoV-2 RNA (RT-PCR) 10/10/23 10/10/23 08:54 11:16 MCV 89.9 MCH 28.7 MCHC 31.9 RDW 14.2 Plt Count 751 H MPV 9.3 L Absolute Nucleated RBC 0.000 Nucleated RBC % (auto) 0.0 POC Glucose 288 H Troponin I High Sens Respiratory Panel Malik Adenovirus (Rapid PCR) B.pert (TEM-PCR) B.parapertussis DNA PCR C. pneumoniae DNA (PCR) Coronavirus OC43 (PCR) Coronavirus HKU1 (PCR) Coronavirus 229E (PCR) Coronavirus NL63 (PCR) Human Metapneumovir PCR Influenza A (RT-PCR) Influenza B (RT-PCR) M. pneumoniae (PCR) Parainfluenza 1 (PCR) Parainfluenza 2 (PCR) Parainfluenza 3 (PCR) Parainfluenza 4 (PCR) RSV (PCR) Entero/Rhino (PCR) SARS-CoV-2 RNA (RT-PCR) Microbiology Microbiology Results: Microbiology 10/08/23 13:53 Blood Culture - Preliminary Blood - Venous No growth after 24 hours. 10/08/23 13:35 Blood Culture - Preliminary Blood - Venous No growth after 24 hours. 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 Acute hypoxemic respiratory failure secondary to COPD exacerbation/pneumonitis viral Blood culture pending Acute lactic acidosis improved thought to be related to nebs. Plan: Continue high-flow oxygen, nebs, steroids, antibiotics cough medication loratadine. d/w ICu in detail. ILd: Continue home meds,hold po prednisone until on iv steriods. Htn :continue losartan. hlp: continue statin. dm with hyperglycemia: sec to steriods continue insulin current regimen,added home glipizide, hold metformin. dvt and gi prophylax: ppi& heparin s/c Ongoing hospitalization need: Acute hypoxemic respiratory failure secondary to COPD asthma overlap syndrome exacerbation, viral URI, diabetes with hyperglycemia: Patient is currently on high-flow oxygen, nebs, steroids, antibiotics, also need adjustment in diabetic insulin regimen Quality Stroke Does the patient have a stroke diagnosis?: No VTE Prior VTE?: No VTE Risk Level:: Medical - moderate - high VTE Device Contraindication: Treatment Not Indicated VTE Drug Contraindication: N/A - Med Ordered
--- NOTE | 2023-10-10 14:37 | PC.NURSE ---
oxygen saturation dropping to mid 70's with little exertion : using commode, transferring from the chair to the bed , takes less than a minute for patient to recover
[2023-10-10] MEDS: Insulin Glargine,Hum.rec.anlog 100 UNIT/ML 10 ML VIAL 10 UNIT SUBCUT (14:42)
[2023-10-10 16:08] LABS: Glucose, Whole Blood 338 mg/dL (60-115)
[2023-10-10 21:14] LABS: Glucose, Whole Blood 119 mg/dL (60-115)
[2023-10-10] MEDS: Gabapentin 300 MG CAPSULE PO (21:25)
[2023-10-10] MEDS: Tamsulosin HCL 0.4 MG CAPSULE PO (21:25)
[2023-10-10] MEDS: Atorvastatin Calcium 40 MG TABLET PO (21:25)
[2023-10-10] MEDS: Acetaminophen 325 MG TABLET 650 MG PO (21:26)
[2023-10-10] MEDS: levoFLOXacin/D5W 500 MG/100 ML PIGGYBACK 100 MG IV (21:26)
--- NOTE | 2023-10-10 23:30 | PC.NURSE ---
Assumed care of pt at 19:15. Handoff report given to oncoming RN at 23:00. Please see shift assessment, tasks, and MAR for full details.
[2023-10-11] VITALS (10 sets, daily range): BP systolic 131–158; BP diastolic 67–83; PULSE 69–84; RESP 16–20; TEMP 36.1–36.4; O2SAT 96–100
[2023-10-11] MEDS: Heparin Sodium,Porcine 5,000 UNIT/ML VIAL 5000 UNIT SUBCUT ×3 (06:02→20:35)
[2023-10-11] MEDS: methylPREDNISolone Sod Succ 40 MG/ML VIAL IVPUSH ×4 (06:02→20:34)
[2023-10-11] MEDS: Omeprazole 20 MG CAPSULE.DR PO ×2 (06:02→17:20)
[2023-10-11] MEDS: Albuterol/Iprat 2.5/0.5MG 3 ML AMPUL.NEB INHALE ×4 (07:20→19:50)
[2023-10-11 07:34] LABS: Glucose, Whole Blood 229 mg/dL (60-115)
[2023-10-11] MEDS: mycophenolate mofetiL 250 MG CAPSULE 500 MG PO ×2 (09:02→20:34)
[2023-10-11] MEDS: Aspirin Enteric Coated 81 MG TABLET.DR PO (09:02)
[2023-10-11] MEDS: DULoxetine HCl 60 MG CAPSULE.DR PO (09:03)
[2023-10-11] MEDS: glipiZIDE 5 MG TABLET PO (09:03)
[2023-10-11] MEDS: Losartan Potassium 50 MG TABLET PO (09:03)
[2023-10-11] MEDS: Insulin Lispro 100 UNIT/ML 3 ML VIAL SUBCUT ×4 (09:03→20:35)
[2023-10-11] MEDS: Loratadine 10 MG TABLET PO (09:03)
[2023-10-11] MEDS: Doxycycline Monohydrate 100 MG CAPSULE PO ×2 (10:14→20:35)
[2023-10-11] MEDS: guaiFENesin DM 600/30 1 TAB TAB.ER.12H PO ×2 (10:14→20:34)
--- NOTE | 2023-10-11 11:34 | P.PNIM_ITS ---
Subjective Subjective Date of Service: 10/11/23 Interval History: sob Review of Systems sob seems to be improving some pleurtic discomfort when coughs no fevers Physical Exam 2 Vital Signs: Vital Signs: Last Vital Signs Temp 97 F 10/11/23 10:56 Pulse 84 10/11/23 11:14 Resp 20 10/11/23 11:14 BP 141/75 H 10/11/23 10:56 Pulse Ox 100 10/11/23 10:56 O2 Del Method Nasal Cannula 10/11/23 10:56 O2 Flow Rate 1 10/11/23 10:56 FiO2 35 10/10/23 12:04 Oxygen Flow Rate 3 10/08/23 13:31 BMI result Body Mass Index 23.2 Appearance: Alert.? Oriented X3.? cvs: rrr, [id number] , no murmur res: air entry diminshed ,has b/l exp wheezing abd: no rebound or guarding ,nt, bs present. ext pulses present , no cyanosis . neuro: axo3 , nonfocal. Objective Data Active Medications Acetaminophen (Acetaminophen 325 Mg Tablet) 650 mg PO Q6H PRN PRN Reason: Headache Last Admin: 10/10/23 21:26 Dose: 650 mg Documented By: BRANDEE Albuterol/Ipratropium (Albuterol/Iprat 2.5/0.5mg 3 Ml Ampul.Neb) 3 ml INHALE RQ4H WHILE AWAKE [facility] Last Admin: 10/11/23 11:13 Dose: 3 ml Documented By: GAVNIO Albuterol/Ipratropium (Albuterol/Iprat 2.5/0.5mg 3 Ml Ampul.Neb) 3 ml INHALE Q3H PRN PRN Reason: sob Aspirin (Aspirin Enteric Coated 81 Mg Tablet.) 81 mg PO DAILY [facility] Last Admin: 10/11/23 09:02 Dose: 81 mg Documented By: STACIA Atorvastatin Calcium (Atorvastatin Calcium 40 Mg Tablet) 40 mg PO BEDTIME [facility] Last Admin: 10/10/23 21:25 Dose: 40 mg Documented By: BRANDEE Doxycycline Monohydrate (Doxycycline Monohydrate 100 Mg Capsule) 100 mg PO Q12H [facility] Last Admin: 10/11/23 10:14 Dose: 100 mg Documented By: STACIA Duloxetine HCl (Duloxetine Hcl 60 Mg Capsule.) 60 mg PO DAILY [facility] Last Admin: 10/11/23 09:03 Dose: 60 mg Documented By: STACIA Gabapentin (Gabapentin 300 Mg Capsule) 300 mg PO BEDTIME [facility] Last Admin: 10/10/23 21:25 Dose: 300 mg Documented By: BRANDEE Glipizide (Glipizide 5 Mg Tablet) 5 mg PO DAILY [facility] Last Admin: 10/11/23 09:03 Dose: 5 mg Documented By: STACIA Guaifenesin/Dextromethorphan (Guaifenesin Dm 200/20/10 Ml 10 Ml Syrup) 10 ml PO Q4H PRN PRN Reason: cough Last Admin: 10/09/23 23:36 Dose: 10 ml Documented By: MILLA Comments: Cough Guaifenesin/Dextromethorphan (Guaifenesin Dm 600/30 1 Tab Tab.Er.12h) 1 tab PO BID [facility] Last Admin: 10/11/23 10:14 Dose: 1 tab Documented By: STACIA Heparin Sodium (Porcine) (Heparin Sodium,Porcine 5,000 Unit/Ml Vial) 5,000 unit SUBCUT Q8H [facility] Last Admin: 10/11/23 06:02 Dose: 5,000 unit Documented By: ANJU Levofloxacin (Levaquin) 500 mg in 100 mls @ 100 mls/hr IV Q24H [facility] Last Infusion: 10/10/23 22:26 Dose: Infused Documented By: BRANDEE Insulin Glargine (Insulin Glargine,Hum.Rec.Anlog 100 Unit/Ml 10 Ml Vial) 10 unit SUBCUT DAILY@1400 [facility] Last Admin: 10/10/23 14:42 Dose: 10 unit Documented By: ZAIN Insulin Human Lispro (Insulin Lispro 100 Unit/Ml 3 Ml Vial) 0 unit SUBCUT QIDACHS [facility]; Protocol Last Admin: 10/11/23 09:03 Dose: 4 unit Documented By: STACIA Loratadine (Loratadine 10 Mg Tablet) 10 mg PO DAILY [facility] Last Admin: 10/11/23 09:03 Dose: 10 mg Documented By: STACIA Losartan Potassium (Losartan Potassium 50 Mg Tablet) 50 mg PO DAILY [facility]; Protocol Last Admin: 10/11/23 09:03 Dose: 50 mg Documented By: STACIA Methylprednisolone Sodium Succinate (Methylprednisolone Sod Succ 40 Mg/Ml Vial) 40 mg IVPUSH TID [facility] Last Admin: 10/11/23 09:03 Dose: 40 mg Documented By: STACIA Mycophenolate Mofetil (Mycophenolate Mofetil 250 Mg Capsule) 500 mg PO BID [facility] Last Admin: 10/11/23 09:02 Dose: 500 mg Documented By: STACIA Omeprazole (Omeprazole 20 Mg Capsule.) 20 mg PO BID@0630,1630 [facility] Last Admin: 10/11/23 06:02 Dose: 20 mg Documented By: ANJU Tamsulosin HCl (Tamsulosin Hcl 0.4 Mg Capsule) 0.4 mg PO BEDTIME [facility] Last Admin: 10/10/23 21:25 Dose: 0.4 mg Documented By: BRANDEE Labs 10/10/23 08:54 10/09/23 05:07 Labs: Laboratory Results - last 24 hr 10/10/23 10/10/23 10/11/23 16:02 21:09 07:31 POC Glucose 338 H 119 H 229 H Microbiology Microbiology Results: Microbiology 10/08/23 13:53 Blood Culture - Preliminary Blood - Venous No growth after 48 hours. 10/08/23 13:35 Blood Culture - Preliminary Blood - Venous No growth after 48 hours. 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 Acute hypoxemic respiratory failure secondary to COPD exacerbation/pneumonitis viral Blood culture pending Acute lactic acidosis improved thought to be related to nebs. Plan: off high-flow oxygen, taper oxygen ,nebs, taper iv steroids, antibiotics, cough medication( added mucinex), hycodan prn ,loratadine. ILd: Continue home meds,hold po prednisone until on iv steriods. Htn :continue losartan. hlp: continue statin. dm with hyperglycemia: sec to steriods continue insulin current regimen,added home glipizide, hold metformin. dvt and gi prophylax: ppi& heparin s/c Ongoing hospitalization need: Acute hypoxemic respiratory failure secondary to COPD asthma overlap syndrome exacerbation, viral URI, diabetes with hyperglycemia: Patient is currently on nc oxygen, nebs, steroids, antibiotics. Quality Stroke Does the patient have a stroke diagnosis?: No VTE Prior VTE?: No VTE Risk Level:: Medical - moderate - high VTE Device Contraindication: Treatment Not Indicated VTE Drug Contraindication: N/A - Med Ordered
[2023-10-11 11:48] LABS: Glucose, Whole Blood 294 mg/dL (60-115)
--- NOTE | 2023-10-11 13:40 | MHC.CM.PN ---
Pt has not yet been medically cleared for DC. She requires ongoing care for acute hypoxic respiratory failure secondary to COPD asthma overlap syndrome exacerbation. DC plan is home, resume services, CM will follow and assist as needed with DC plan. Pt has O2 at home.
--- NOTE | 2023-10-11 14:45 | PM.CNPUL ---
History of Present Illness History of Present Illness Consult date: 10/11/23 Chief complaint: acute hypoxic respiratory failure Narrative: This is an inpatient pulmonary consultation. 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 Medical home team provided 2 duonebs and 125mg IV steroids. O2 was increased to 5L NC.?VBG showed a pH of 7.29, HCO3 19.? Respiratory panel negative for influenza type A and B and also RSV.? She was briefly admitted to the ICU placed on high-flow and subsequently weaned off. Her respiratory viral panel was positive for enterovirus/rhinovirus. She is currently on levofloxacin. The patient has been slowly improving. She still has a cough. Hard to expectorate. We did talk about CPT. I did provide her with an Aerob[employer] valve that she can work on. Review of Systems Review of Systems: Yes all other systems are reviewed and are negative Constitutional: Constitutional: Reports no additional constitutional complaints and Denies headache(s) ENT: Denies headache(s) Cardiovascular: Cardiovascular: Denies chest pain, Denies Epigastric Pain and Reports dyspnea on exertion Respiratory: Respiratory: Reports no additional respiratory complaints, Denies cough, Denies excessive phlegm production, Reports dyspnea on exertion and Denies wheezing Gastrointestinal: Gastrointestinal: Denies abdominal pain, Denies diarrhea, Denies nausea and Denies vomiting Genitourinary: Genitourinary: Denies dysuria and Reports urinary incontinence Musculoskeletal: Musculoskeletal: Denies arthralgias, Denies muscle weakness, Denies numbness and Denies tingling Integumentary/Breasts: Skin/Breast: Denies rash and Denies wounds Neurologic: Denies headache(s), Denies numbness and Denies tingling Psychiatric: Psychiatric: Denies anxiety and Denies depression Allergic/Immunologic: Allergic/Immunologic: Denies wheezing PMFSH Past Medical History Medical History Viral syndrome Asthma-COPD overlap syndrome Chronic respiratory failure Acute and chronic respiratory failure Pneumonitis Generalized anxiety disorder Urinary incontinence CVA (cerebral vascular accident) Osteopenia Lumbar spinal stenosis Interstitial pulmonary fibrosis Insomnia Cystocele Hypertension Hypercholesterolemia Type 2 diabetes mellitus with hyperglycemia Surgical History Surgical History Hx of section Social History Social History Household Members: Spouse Housing: Apartment Do you presently have visiting nurse or other home services: Yes Alcohol intake: former Patient Tobacco Use Status: Never used Tobacco Smoked in Last 30 Days: No e-Cigarette/Vaping Use: Never Used Second Hand Smoke Exposure: No Use of substances other than those prescribed or required for medical reasons: No Currently Displaying Signs/Symptoms of Drug Intoxication Withdrawal: No Have you been hit, kicked, punched, or otherwise hurt by someone within the past year? If so, by whom?: No Do you feel safe in your current relationship?: Yes Is there a partner from a previous relationship who is making you feel unsafe now?: No Are you made to feel afraid or neglected: No Advance Directives: No Advance Directives Information Provided: Yes Do you have thoughts of harming others: None Do you have a plan to hurt others: No Plan Recently lost weight without trying: Unsure Nutrition Risks: Dental problems Patient : No : No service: No Current occupational status: retired Cognitive needs: Yes ([employer] at home) Hearing needs: No Vision needs: Yes Meds Allergies Allergy/AdvReac Type Severity Reaction Status Date / Time No Known Allergies Allergy Verified 10/08/23 13:28 Active Medications: Current Medications Acetaminophen (Acetaminophen 325 Mg Tablet) 650 mg PO Q6H PRN PRN Reason: Headache Last Admin: 10/10/23 21:26 Dose: 650 mg Albuterol/Ipratropium (Albuterol/Iprat 2.5/0.5mg 3 Ml Ampul.Neb) 3 ml INHALE RQ4H WHILE AWAKE [facility] Last Admin: 10/11/23 11:13 Dose: 3 ml Albuterol/Ipratropium (Albuterol/Iprat 2.5/0.5mg 3 Ml Ampul.Neb) 3 ml INHALE Q3H PRN PRN Reason: sob Aspirin (Aspirin Enteric Coated 81 Mg Tablet.) 81 mg PO DAILY [facility] Last Admin: 10/11/23 09:02 Dose: 81 mg Atorvastatin Calcium (Atorvastatin Calcium 40 Mg Tablet) 40 mg PO BEDTIME [facility] Last Admin: 10/10/23 21:25 Dose: 40 mg Doxycycline Monohydrate (Doxycycline Monohydrate 100 Mg Capsule) 100 mg PO Q12H [facility] Last Admin: 10/11/23 10:14 Dose: 100 mg Duloxetine HCl (Duloxetine Hcl 60 Mg Capsule.Dr) 60 mg PO DAILY [facility] Last Admin: 10/11/23 09:03 Dose: 60 mg Gabapentin (Gabapentin 300 Mg Capsule) 300 mg PO BEDTIME [facility] Last Admin: 10/10/23 21:25 Dose: 300 mg Glipizide (Glipizide 5 Mg Tablet) 5 mg PO DAILY [facility] Last Admin: 10/11/23 09:03 Dose: 5 mg Guaifenesin/Codeine Phosphate (Guaifen/Codeine Sf 200/20/10ml 10 Ml Liquid) 5 ml PO Q4H PRN PRN Reason: cough Guaifenesin/Dextromethorphan (Guaifenesin Dm 600/30 1 Tab Tab.Er.12h) 1 tab PO BID [facility] Last Admin: 10/11/23 10:14 Dose: 1 tab Heparin Sodium (Porcine) (Heparin Sodium,Porcine 5,000 Unit/Ml Vial) 5,000 unit SUBCUT Q8H [facility] Last Admin: 10/11/23 12:03 Dose: 5,000 unit Levofloxacin (Levaquin) 500 mg in 100 mls @ 100 mls/hr IV Q24H [facility] Last Infusion: 10/10/23 22:26 Dose: Infused Insulin Glargine (Insulin Glargine,Hum.Rec.Anlog 100 Unit/Ml 10 Ml Vial) 10 unit SUBCUT DAILY@1400 [facility] Last Admin: 10/10/23 14:42 Dose: 10 unit Insulin Human Lispro (Insulin Lispro 100 Unit/Ml 3 Ml Vial) 0 unit SUBCUT QIDACHS [facility]; Protocol Last Admin: 10/11/23 12:03 Dose: 8 unit Loratadine (Loratadine 10 Mg Tablet) 10 mg PO DAILY [facility] Last Admin: 10/11/23 09:03 Dose: 10 mg Losartan Potassium (Losartan Potassium 50 Mg Tablet) 50 mg PO DAILY [facility]; Protocol Last Admin: 10/11/23 09:03 Dose: 50 mg Methylprednisolone Sodium Succinate (Methylprednisolone Sod Succ 40 Mg/Ml Vial) 40 mg IVPUSH TID [facility] Last Admin: 10/11/23 09:03 Dose: 40 mg Mycophenolate Mofetil (Mycophenolate Mofetil 250 Mg Capsule) 500 mg PO BID [facility] Last Admin: 10/11/23 09:02 Dose: 500 mg Omeprazole (Omeprazole 20 Mg Capsule.) 20 mg PO BID@0630,1630 [facility] Last Admin: 10/11/23 06:02 Dose: 20 mg Tamsulosin HCl (Tamsulosin Hcl 0.4 Mg Capsule) 0.4 mg PO BEDTIME [facility] Last Admin: 10/10/23 21:25 Dose: 0.4 mg Home Medications ?Medication ?Instructions ?Recorded ?Confirmed ?Last Taken ?Type Oxygen Home Use 10/23/22 04/27/23 Unknown History acetaminophen 500 mg tablet 1,000 mg PO TID PRN Pain 10/08/23 10/08/23 Unknown History albuterol sulfate 2.5 mg/3 mL 2.5 mg inhalation QID PRN 10/08/23 10/08/23 Unknown History (0.083 %) solution for nebulization Shortness Of Breath Or Wheezing insulin glargine 100 unit/mL (3 10 unit subcut DAILY@1400 10/08/23 10/08/23 Unknown History mL) subcutaneous pen (Lantus Solostar U-100 Insulin) Physical Exam Vital Signs: Vital Signs: Last Vital Signs Temp 97 F 10/11/23 10:56 Pulse 84 10/11/23 11:14 Resp 20 10/11/23 11:14 BP 141/75 H 10/11/23 10:56 Pulse Ox 100 10/11/23 10:56 O2 Del Method Nasal Cannula 10/11/23 10:56 O2 Flow Rate 1 10/11/23 10:56 FiO2 35 10/10/23 12:04 Oxygen Flow Rate 3 10/08/23 13:31 BMI result Body Mass Index 23.2 Const: General: cooperative, no acute distress and alert Orientation/consciousness: patient oriented x3 (answering appropriately.) HEENT: Head: Yes normocephalic and Yes atraumatic General nose exam: Normal external nose present (Nares patent, septum midline, sinuses nontender bilaterally.) Mouth: Normal oral and palatal mucosa present (No thrush, tongue in midline, mucosa moist.) Teeth and gingiva: edentulous (pt has about 4 teeth) Throat: Yes other (No erythema, no exudate.) Eyes: Pupils: Pupils anisocoria right pupil size greater than left (pear shaped, fixed. Pt reports near blindness), Pupils not reactive on the right and Pupil size comments on the right 5 and on the left 2 Neck: Neck: Yes supple (no thyromegaly, trachea midline.) Chest: Chest palpation & inspection: normal inspection of the chest Resp: Effort & Inspection: normal respiratory effort Auscultation: crackles and diminished lung sounds bilateral Cardio: Jugular venous distension: no JVD Rate: regular rate Rhythm: regular rhythm GI: Palpation (GI): Soft to palpation (nondistended.) and nontender Skin: General skin exam: no rashes or lesions noted Neuro: General: patient oriented x3 (answering appropriately.) Extrem: General: Yes full ROM, Yes capillary refill normal and Yes no clubbing, cyanosis or edema Psych: Affect: normal affect Attitude: cooperative Results Laboratory Findings 10/10/23 08:54 10/09/23 05:07 Abnormal lab findings: Abnormal Labs 10/08/23 10/08/23 10/08/23 13:38 13:39 13:53 WBC 14.0 H RBC 3.61 L Hgb 10.4 L Hct 33.4 L Plt Count 717 H MPV 9.0 L Neut % (Auto) 86.8 H Lymph % (Auto) 9.5 L Abs Immat Gran (auto) 0.04 H Absolute Neuts (auto) 12.1 H VBG pH VBG HCO3 Anion Gap BUN 8 L POC Glucose Random Glucose 259 H Lactic Acid 3.0 H* Lactic Acid F/U @ 2Hr Lactic Acid F/U @ 4Hr Troponin I High Sens Total Protein 8.1 H Ur Specific [place] Urine Glucose (UA) Entero/Rhino (PCR) Detected A 10/08/23 10/08/23 10/08/23 14:04 16:11 17:42 WBC RBC Hgb Hct Plt Count MPV Neut % (Auto) Lymph % (Auto) Abs Immat Gran (auto) Absolute Neuts (auto) VBG pH VBG HCO3 28 H Anion Gap BUN POC Glucose Random Glucose Lactic Acid 9.2 H* Lactic Acid F/U @ 2Hr 8.3 H* Lactic Acid F/U @ 4Hr Troponin I High Sens Total Protein Ur Specific [place] Urine Glucose (UA) Entero/Rhino (PCR) 10/08/23 10/08/23 10/08/23 17:45 18:45 20:04 WBC RBC Hgb Hct Plt Count MPV Neut % (Auto) Lymph % (Auto) Abs Immat Gran (auto) Absolute Neuts (auto) VBG pH 7.29 L VBG HCO3 19 L Anion Gap BUN POC Glucose Random Glucose Lactic Acid Lactic Acid F/U @ 2Hr 7.6 H* Lactic Acid F/U @ 4Hr 8.5 H* Troponin I High Sens Total Protein Ur Specific [place] Urine Glucose (UA) Entero/Rhino (PCR) 10/08/23 10/09/23 10/09/23 22:39 00:57 01:37 WBC RBC Hgb Hct Plt Count MPV Neut % (Auto) Lymph % (Auto) Abs Immat Gran (auto) Absolute Neuts (auto) VBG pH VBG HCO3 Anion Gap BUN POC Glucose 320 H Random Glucose Lactic Acid Lactic Acid F/U @ 2Hr Lactic Acid F/U @ 4Hr 4.0 H* Troponin I High Sens Total Protein Ur Specific [place] >= 1.030 H Urine Glucose (UA) >=1000 H Entero/Rhino (PCR) 10/09/23 10/09/23 10/09/23 05:06 05:07 07:44 WBC 13.2 H RBC 3.23 L Hgb 9.2 L Hct 29.1 L Plt Count 700 H MPV 9.0 L Neut % (Auto) 83.0 H Lymph % (Auto) 10.5 L Abs Immat Gran (auto) 0.04 H Absolute Neuts (auto) 11.0 H VBG pH 7.49 H VBG HCO3 29 H Anion Gap 11 L BUN 8 L POC Glucose 217 H Random Glucose 192 H Lactic Acid Lactic Acid F/U @ 2Hr Lactic Acid F/U @ 4Hr Troponin I High Sens Total Protein Ur Specific [place] Urine Glucose (UA) Entero/Rhino (PCR) 10/09/23 10/09/23 10/09/23 11:35 16:48 20:37 WBC RBC Hgb Hct Plt Count MPV Neut % (Auto) Lymph % (Auto) Abs Immat Gran (auto) Absolute Neuts (auto) VBG pH VBG HCO3 Anion Gap BUN POC Glucose 336 H 236 H 228 H Random Glucose Lactic Acid Lactic Acid F/U @ 2Hr Lactic Acid F/U @ 4Hr Troponin I High Sens Total Protein Ur Specific [place] Urine Glucose (UA) Entero/Rhino (PCR) 10/09/23 10/10/23 10/10/23 23:20 02:49 07:24 WBC RBC Hgb Hct Plt Count MPV Neut % (Auto) Lymph % (Auto) Abs Immat Gran (auto) Absolute Neuts (auto) VBG pH VBG HCO3 Anion Gap BUN POC Glucose 207 H Random Glucose Lactic Acid Lactic Acid F/U @ 2Hr Lactic Acid F/U @ 4Hr Troponin I High Sens 23.3 H D 19.8 H Total Protein Ur Specific [place] Urine Glucose (UA) Entero/Rhino (PCR) 10/10/23 10/10/23 10/10/23 08:54 11:16 16:02 WBC 19.4 H RBC 3.35 L Hgb 9.6 L Hct 30.1 L Plt Count 751 H MPV 9.3 L Neut % (Auto) Lymph % (Auto) Abs Immat Gran (auto) Absolute Neuts (auto) VBG pH VBG HCO3 Anion Gap BUN POC Glucose 288 H 338 H Random Glucose Lactic Acid Lactic Acid F/U @ 2Hr Lactic Acid F/U @ 4Hr Troponin I High Sens Total Protein Ur Specific [place] Urine Glucose (UA) Entero/Rhino (PCR) 10/10/23 10/11/23 10/11/23 21:09 07:31 11:42 WBC RBC Hgb Hct Plt Count MPV Neut % (Auto) Lymph % (Auto) Abs Immat Gran (auto) Absolute Neuts (auto) VBG pH VBG HCO3 Anion Gap BUN POC Glucose 119 H 229 H 294 H Random Glucose Lactic Acid Lactic Acid F/U @ 2Hr Lactic Acid F/U @ 4Hr Troponin I High Sens Total Protein Ur Specific [place] Urine Glucose (UA) Entero/Rhino (PCR) Microbiology: Microbiology 10/08/23 13:53 Blood - Venous Blood Culture - Preliminary No growth after 48 hours. 10/08/23 13:35 Blood - Venous Blood Culture - Preliminary No growth after 48 hours. Assessment and Plan (1) Pneumonia: Qualifiers: Laterality: left Lung location: lower lobe of lung Pneumonia type: due to unspecified organism Qualified Code(s): J18.9 - Pneumonia, unspecified organism Status: Acute (2) COPD with acute exacerbation: Status: Acute (3) Viral syndrome: Status: Acute (4) Interstitial lung disease: Status: Acute Plan continue Lavaquin Add Doxy x 10 days switch to PO prednisone 40mg with slow taper oxygen to keep pox>90% Mucinex Provided CPT with rashid Procedures Date of Service Date of Service: 10/11/23
[2023-10-11] MEDS: Insulin Glargine,Hum.rec.anlog 100 UNIT/ML 10 ML VIAL 10 UNIT SUBCUT (14:54)
[2023-10-11 17:16] LABS: Glucose, Whole Blood 194 mg/dL (60-115)
[2023-10-11 20:19] LABS: Glucose, Whole Blood 323 mg/dL (60-115)
[2023-10-11] MEDS: levoFLOXacin/D5W 500 MG/100 ML PIGGYBACK 100 MG IV (20:35)
[2023-10-11] MEDS: Gabapentin 300 MG CAPSULE PO (20:35)
[2023-10-11] MEDS: Atorvastatin Calcium 40 MG TABLET PO (20:35)
[2023-10-11] MEDS: Tamsulosin HCL 0.4 MG CAPSULE PO (20:35)
[2023-10-12] VITALS (12 sets, daily range): BP systolic 122–160; BP diastolic 62–80; PULSE 64–125; RESP 16–20; TEMP 36–36.8; O2SAT 82–100; BMI 21.4
[2023-10-12] MEDS: Heparin Sodium,Porcine 5,000 UNIT/ML VIAL 5000 UNIT SUBCUT ×3 (03:48→22:39)
[2023-10-12] MEDS: Omeprazole 20 MG CAPSULE.DR PO ×2 (06:07→15:41)
[2023-10-12 07:32] LABS: Glucose, Whole Blood 180 mg/dL (60-115)
[2023-10-12] MEDS: Albuterol/Iprat 2.5/0.5MG 3 ML AMPUL.NEB INHALE ×4 (07:40→19:40)
[2023-10-12] MEDS: Insulin Lispro 100 UNIT/ML 3 ML VIAL SUBCUT ×4 (08:13→22:39)
[2023-10-12] MEDS: Aspirin Enteric Coated 81 MG TABLET.DR PO (08:15)
[2023-10-12] MEDS: DULoxetine HCl 60 MG CAPSULE.DR PO (08:15)
[2023-10-12] MEDS: Loratadine 10 MG TABLET PO (08:16)
[2023-10-12] MEDS: predniSONE 20 MG TABLET 40 MG PO (08:16)
[2023-10-12] MEDS: guaiFENesin DM 600/30 1 TAB TAB.ER.12H PO ×2 (08:16→22:38)
[2023-10-12] MEDS: mycophenolate mofetiL 250 MG CAPSULE 500 MG PO ×2 (08:17→22:38)
[2023-10-12] MEDS: glipiZIDE 5 MG TABLET PO (08:17)
[2023-10-12] MEDS: Doxycycline Monohydrate 100 MG CAPSULE PO ×2 (08:17→22:38)
[2023-10-12] MEDS: Losartan Potassium 50 MG TABLET PO (08:18)
[2023-10-12 11:02] LABS: Glucose, Whole Blood 245 mg/dL (60-115)
--- NOTE | 2023-10-12 11:06 | P.PNIM_ITS ---
Subjective Subjective Date of Service: 10/12/23 Interval History: Patient is oriented x4. No significant nursing events overnight. Improved shortness of breath. Review of Systems sob seems to be improving some pleurtic discomfort when coughs no fevers Physical Exam 2 Vital Signs: Vital Signs: Last Vital Signs Temp 97.8 F 10/12/23 07:22 Pulse 71 10/12/23 07:41 Resp 17 10/12/23 07:41 BP 148/80 H 10/12/23 08:18 Pulse Ox 100 10/12/23 07:22 O2 Del Method Nasal Cannula 10/12/23 07:22 O2 Flow Rate 2 10/12/23 07:22 FiO2 35 10/10/23 12:04 Oxygen Flow Rate 3 10/08/23 13:31 BMI result Body Mass Index 21.4 Appearance: Alert.? Oriented X3.? cvs: rrr, [id number] , no murmur res: air entry diminshed ,has b/l exp wheezing and crackles abd: no rebound or guarding ,nt, bs present. ext pulses present , no cyanosis . neuro: axo3 , nonfocal. Objective Data Active Medications Acetaminophen (Acetaminophen 325 Mg Tablet) 650 mg PO Q6H PRN PRN Reason: Headache Last Admin: 10/10/23 21:26 Dose: 650 mg Documented By: BRANDEE Albuterol/Ipratropium (Albuterol/Iprat 2.5/0.5mg 3 Ml Ampul.Neb) 3 ml INHALE RQ4H WHILE AWAKE [facility] Last Admin: 10/12/23 07:40 Dose: 3 ml Documented By: EDELMIRA Albuterol/Ipratropium (Albuterol/Iprat 2.5/0.5mg 3 Ml Ampul.Neb) 3 ml INHALE Q3H PRN PRN Reason: sob Aspirin (Aspirin Enteric Coated 81 Mg Tablet.) 81 mg PO DAILY [facility] Last Admin: 10/12/23 08:15 Dose: 81 mg Documented By: JOHN Atorvastatin Calcium (Atorvastatin Calcium 40 Mg Tablet) 40 mg PO BEDTIME [facility] Last Admin: 10/11/23 20:35 Dose: 40 mg Documented By: ANJU Doxycycline Monohydrate (Doxycycline Monohydrate 100 Mg Capsule) 100 mg PO Q12H [facility] Last Admin: 10/12/23 08:17 Dose: 100 mg Documented By: JOHN Duloxetine HCl (Duloxetine Hcl 60 Mg Capsule.Dr) 60 mg PO DAILY [facility] Last Admin: 10/12/23 08:15 Dose: 60 mg Documented By: JOHN Gabapentin (Gabapentin 300 Mg Capsule) 300 mg PO BEDTIME [facility] Last Admin: 10/11/23 20:35 Dose: 300 mg Documented By: ANJU Glipizide (Glipizide 5 Mg Tablet) 5 mg PO DAILY [facility] Last Admin: 10/12/23 08:17 Dose: 5 mg Documented By: JOHN Guaifenesin/Codeine Phosphate (Guaifen/Codeine Sf 200/20/10ml 10 Ml Liquid) 5 ml PO Q4H PRN PRN Reason: cough Guaifenesin/Dextromethorphan (Guaifenesin Dm 600/30 1 Tab Tab.Er.12h) 1 tab PO BID [facility] Last Admin: 10/12/23 08:16 Dose: 1 tab Documented By: JOHN Heparin Sodium (Porcine) (Heparin Sodium,Porcine 5,000 Unit/Ml Vial) 5,000 unit SUBCUT Q8H [facility] Last Admin: 10/12/23 03:48 Dose: 5,000 unit Documented By: RACHEL Insulin Glargine (Insulin Glargine,Hum.Rec.Anlog 100 Unit/Ml 10 Ml Vial) 10 unit SUBCUT DAILY@1400 [facility] Last Admin: 10/11/23 14:54 Dose: 10 unit Documented By: STACIA Insulin Human Lispro (Insulin Lispro 100 Unit/Ml 3 Ml Vial) 0 unit SUBCUT QIDACHS [facility]; Protocol Last Admin: 10/12/23 08:13 Dose: 2 unit Documented By: JOHN Levofloxacin (Levofloxacin 750 Mg Tablet) 750 mg PO Q24H [facility] Loratadine (Loratadine 10 Mg Tablet) 10 mg PO DAILY [facility] Last Admin: 10/12/23 08:16 Dose: 10 mg Documented By: JOHN Losartan Potassium (Losartan Potassium 50 Mg Tablet) 50 mg PO DAILY [facility]; Protocol Last Admin: 10/12/23 08:18 Dose: 50 mg Documented By: JOHN Mycophenolate Mofetil (Mycophenolate Mofetil 250 Mg Capsule) 500 mg PO BID [facility] Last Admin: 10/12/23 08:17 Dose: 500 mg Documented By: JOHN Omeprazole (Omeprazole 20 Mg Capsule.) 20 mg PO BID@0630,1630 [facility] Last Admin: 10/12/23 06:07 Dose: 20 mg Documented By: RACHEL Prednisone (Prednisone 20 Mg Tablet) 40 mg PO DAILY [facility] Last Admin: 10/12/23 08:16 Dose: 40 mg Documented By: JOHN Tamsulosin HCl (Tamsulosin Hcl 0.4 Mg Capsule) 0.4 mg PO BEDTIME [facility] Last Admin: 10/11/23 20:35 Dose: 0.4 mg Documented By: MATTIEB Labs 10/10/23 08:54 10/09/23 05:07 Labs: Laboratory Results - last 24 hr 10/11/23 10/11/23 10/11/23 11:42 17:12 20:15 POC Glucose 294 H 194 H 323 H 10/12/23 10/12/23 07:27 10:52 POC Glucose 180 H 245 H Assessment and Plan (1) COPD with acute exacerbation: Status: Acute (2) Pneumonia: Status: Acute Plan 82-year-old female with interstitial lung disease uncontrolled diabetes mellitus hypertension hypercholesterolemia, COPD asthma overlap syndrome/ interstitial lung disease: Came to the hospital because URI like symptoms-found to have acute hypoxemic respiratory failure possib to asthma COPD overlap syndrome, possible pneumonitis possible viral (enetro/rhino): Patient initially had acute hypoxemic respiratory failure secondary to above, acute lactic acidosis-went to ICU: On high-flow, nebs, steroids, antibiotics Patient respiratory status seems to be improving, still on high-flow: Downgraded to the floor. Acute on chronic hypoxemic respiratory failure secondary to COPD exacerbation in the setting of pneumonia On baseline 2-3 L supplemental oxygen. Patient desatted to 82% upon standing on 3 L. On 6 L supplemental oxygen satting 90% at the time of my evaluation. Continue supplemental oxygen, wean as tolerated. Continue doxycycline and Levaquin. Initially on IV steroids> tapered to prednisone 40 mg daily ILd: On mycophenolate Htn :continue losartan. hlp: continue statin. dm with hyperglycemia: sec to steriods Increased basal regimen. Continue sliding scale insulin and glipizide dvt and gi prophylax: ppi& heparin s/c Ongoing hospitalization need: Acute hypoxemic respiratory failure secondary to COPD asthma overlap syndrome exacerbation, diabetes with hyperglycemia: Patient is currently on nc oxygen, nebs, steroids, antibiotics. Quality Stroke Does the patient have a stroke diagnosis?: No VTE Prior VTE?: No VTE Risk Level:: Medical - moderate - high VTE Device Contraindication: Treatment Not Indicated VTE Drug Contraindication: N/A - Med Ordered
--- NOTE | 2023-10-12 13:30 | MHC.CM.PN ---
Second IMM given 10/11. Anticipating pt will discharge home self-care with resumption of [facility] services and home O2 via family transport tomorrow.
[2023-10-12] MEDS: Insulin Glargine,Hum.rec.anlog 100 UNIT/ML 10 ML VIAL 12 UNIT SUBCUT (15:41)
[2023-10-12 16:22] LABS: Glucose, Whole Blood 249 mg/dL (60-115)
[2023-10-12 21:32] LABS: Glucose, Whole Blood 178 mg/dL (60-115)
[2023-10-12] MEDS: Gabapentin 300 MG CAPSULE PO (22:38)
[2023-10-12] MEDS: Acetaminophen 325 MG TABLET 650 MG PO (22:38)
[2023-10-12] MEDS: Atorvastatin Calcium 40 MG TABLET PO (22:39)
[2023-10-12] MEDS: Tamsulosin HCL 0.4 MG CAPSULE PO (22:39)
[2023-10-12] MEDS: levoFLOXacin 750 MG TABLET PO (22:39)
[2023-10-12] MEDS: guaiFEN/Codeine SF 200/20/10ML 10 ML LIQUID 5 ML PO (22:40)
[2023-10-13] VITALS (14 sets, daily range): BP systolic 124–151; BP diastolic 59–74; PULSE 65–124; RESP 18–20; TEMP 36.1–36.7; O2SAT 93–100; BMI 21.3
[2023-10-13] MEDS: Albuterol/Iprat 2.5/0.5MG 3 ML AMPUL.NEB INHALE ×5 (03:35→19:32)
[2023-10-13] MEDS: guaiFEN/Codeine SF 200/20/10ML 10 ML LIQUID 5 ML PO (03:50)
[2023-10-13] MEDS: Heparin Sodium,Porcine 5,000 UNIT/ML VIAL 5000 UNIT SUBCUT ×3 (03:50→21:19)
[2023-10-13] MEDS: Omeprazole 20 MG CAPSULE.DR PO ×2 (05:19→16:43)
[2023-10-13 06:25] LABS: MANUAL DIFF FLAG NO
[2023-10-13 06:46] LABS: Anion Gap 11 (12-20); Blood Urea Nitrogen 12 mg/dL (9-16); Calcium 9.2 mg/dL (8.4-10.2); Carbon Dioxide 32 mmol/L (22-29); Chloride 100 mmol/L (96-108); Creatinine Clr Calc Pharmacy 64.5; Estimated Glomerular Filt Rate > 60; Glucose Random 90 mg/dL (60-115); Sodium 140 mmol/L (135-145)
[2023-10-13 06:52] LABS: Basophils Percent Auto 0.1 % (0-2); Eosinophils Absolute Auto 0.2 X10*3/uL (0.0-0.4); Eosinophils Percent Auto 1.2 % (0-4); Hematocrit 33.3 % (37.0-47.0); Hemoglobin 10.3 g/dl (12.0-16.0); Imm Gran Abs Auto 0.19 X10*3/uL (0.00-0.03); Imm Gran Pct Auto 1.1 % (0.0-0.4); Lymphocytes Percent Auto 28.8 % (20-40); Mean Corpuscular HGB Conc 30.9 g/dl (31.0-35.0); Mean Corpuscular Hemoglobin 28.3 pg (27.0-33.0); Mean Corpuscular Volume 91.5 fL (80.0-98.0); Mean Platelet Volume 9.3 fL (9.4-12.3); Monocytes Absolute Auto 1.1 X10*3/uL (0.1-1.2); Monocytes Percent Auto 6.3 % (2-11); Neutrophils Absolute Auto 10.8 x10*3/uL (2.0-8.3); Neutrophils Percent Auto 62.5 % (45-73); Platelet Count 815 X10*3/uL (160-400); Red Blood Count 3.64 X10*6/uL (4.20-5.50); Red Cell Distribution Width 13.8 % (11.0-16.0); White Blood Count 17.2 X10*3/uL (4.8-10.8)
[2023-10-13 07:55] LABS: Glucose, Whole Blood 108 mg/dL (60-115)
[2023-10-13 08:01] LABS: Venous Blood Gas Refer to POC result
[2023-10-13 08:01] LABS: VBG Base Excess 13.8 mmol/L; VBG HCO3 39 mmol/L (22-26); VBG pCO2 53 mmHg; VBG pH 7.47 (7.32-7.43); VBG pO2 47 mmHg
[2023-10-13] MEDS: Potassium Chloride Packet 20 MEQ PACKET 40 MEQ PO (08:54)
[2023-10-13] MEDS: Doxycycline Monohydrate 100 MG CAPSULE PO ×2 (08:55→21:19)
[2023-10-13] MEDS: Loratadine 10 MG TABLET PO (08:55)
[2023-10-13] MEDS: Aspirin Enteric Coated 81 MG TABLET.DR PO (08:55)
[2023-10-13] MEDS: DULoxetine HCl 60 MG CAPSULE.DR PO (08:55)
[2023-10-13] MEDS: predniSONE 20 MG TABLET 40 MG PO (08:55)
[2023-10-13] MEDS: Losartan Potassium 50 MG TABLET PO (08:55)
[2023-10-13] MEDS: mycophenolate mofetiL 250 MG CAPSULE 500 MG PO ×2 (08:55→21:19)
[2023-10-13] MEDS: glipiZIDE 5 MG TABLET PO (08:55)
[2023-10-13] MEDS: guaiFENesin DM 600/30 1 TAB TAB.ER.12H PO ×2 (08:55→21:19)
[2023-10-13 09:03] LABS: B Type Natriuretic Peptide 18 pg/mL (<100)
--- NOTE | 2023-10-13 11:03 | MHC.CM.PN ---
Addendum entered by Carla Ruby 10/13/23 13:39: Pts daughter Kylee toured [facility] and [facility], states she would not want her mother to go to [facility], and the [facility] seemed better. Kylee asking if any [place] facilities can offer her a bed. Referral added to Octavio Joyner in [facility], they state they may be able to offer pt a bed. This CM updated Kylee. HCP completed with pt, now on file. Addendum entered by Carla Ruby 10/13/23 12:06: [facility] [place] and [facility] have given a bed offer for this pt. This CM called Kylee to review the 2 STR options. Kylee is currently on her way in to see her mother and will let us know shortly which facility she chooses for her mother. Original Note: PT is recommending STR for this pt. This CM attempted to call pts daughter Kylee to discuss preferences and voicemail was left. This CM met with pt and head of drama and pt requested that this CM speak with Kylee about this. This CM called Kylee back and was able to reach her, per Kylee she is receptive to pt going to STR in the local [place] area. Referrals placed in carport accordingly, will await STR bed offer.
[2023-10-13 11:14] LABS: Glucose, Whole Blood 167 mg/dL (60-115)
--- NOTE | 2023-10-13 11:19 | P.PNIM_ITS ---
Subjective Subjective Date of Service: 10/13/23 Interval History: Noted improvement in dyspnea. No acute nursing events overnight. Review of Systems Review of Systems: Yes all other systems are reviewed and are negative Physical Exam 2 Vital Signs: Vital Signs: Last Vital Signs Temp 97.5 F 10/13/23 11:06 Pulse 112 H 10/13/23 11:06 Resp 20 10/13/23 11:06 BP 125/66 10/13/23 11:06 Pulse Ox 94 10/13/23 11:06 O2 Del Method Nasal Cannula 10/13/23 11:06 O2 Flow Rate 3 10/13/23 11:06 FiO2 35 10/10/23 12:04 Oxygen Flow Rate 3 10/08/23 13:31 BMI result Body Mass Index 21.3 Appearance: Alert.? Oriented X3.? cvs: rrr, [id number] , no murmur res: air entry diminshed ,has b/l exp wheezing and crackles abd: no rebound or guarding ,nt, bs present. ext pulses present , no cyanosis . neuro: axo3 , nonfocal. Objective Data Active Medications Acetaminophen (Acetaminophen 325 Mg Tablet) 650 mg PO Q6H PRN PRN Reason: Headache Last Admin: 10/12/23 22:38 Dose: 650 mg Documented By: FABIOLA Albuterol/Ipratropium (Albuterol/Iprat 2.5/0.5mg 3 Ml Ampul.Neb) 3 ml INHALE RQ4H WHILE AWAKE [facility] Last Admin: 10/13/23 11:01 Dose: 3 ml Documented By: EDELMIRA Albuterol/Ipratropium (Albuterol/Iprat 2.5/0.5mg 3 Ml Ampul.Neb) 3 ml INHALE Q3H PRN PRN Reason: sob Last Admin: 10/13/23 03:35 Dose: 3 ml Documented By: BARRON Aspirin (Aspirin Enteric Coated 81 Mg Tablet.) 81 mg PO DAILY [facility] Last Admin: 10/13/23 08:55 Dose: 81 mg Documented By: REYNOLD Atorvastatin Calcium (Atorvastatin Calcium 40 Mg Tablet) 40 mg PO BEDTIME [facility] Last Admin: 10/12/23 22:39 Dose: 40 mg Documented By: FABIOLA Doxycycline Monohydrate (Doxycycline Monohydrate 100 Mg Capsule) 100 mg PO Q12H [facility] Last Admin: 10/13/23 08:55 Dose: 100 mg Documented By: REYNOLD Duloxetine HCl (Duloxetine Hcl 60 Mg Capsule.) 60 mg PO DAILY [facility] Last Admin: 10/13/23 08:55 Dose: 60 mg Documented By: REYNOLD Gabapentin (Gabapentin 300 Mg Capsule) 300 mg PO BEDTIME [facility] Last Admin: 10/12/23 22:38 Dose: 300 mg Documented By: FABIOLA Glipizide (Glipizide 5 Mg Tablet) 5 mg PO DAILY [facility] Last Admin: 10/13/23 08:55 Dose: 5 mg Documented By: REYNOLD Guaifenesin/Codeine Phosphate (Guaifen/Codeine Sf 200/20/10ml 10 Ml Liquid) 5 ml PO Q4H PRN PRN Reason: cough Last Admin: 10/13/23 03:50 Dose: 5 ml Documented By: FABIOLA Guaifenesin/Dextromethorphan (Guaifenesin Dm 600/30 1 Tab Tab.Er.12h) 1 tab PO BID [facility] Last Admin: 10/13/23 08:55 Dose: 1 tab Documented By: REYNOLD Heparin Sodium (Porcine) (Heparin Sodium,Porcine 5,000 Unit/Ml Vial) 5,000 unit SUBCUT Q8H [facility] Last Admin: 10/13/23 03:50 Dose: 5,000 unit Documented By: FABIOLA Insulin Glargine (Insulin Glargine,Hum.Rec.Anlog 100 Unit/Ml 10 Ml Vial) 12 unit SUBCUT DAILY@1400 [facility] Last Admin: 10/12/23 15:41 Dose: 12 unit Documented By: JOHN Insulin Human Lispro (Insulin Lispro 100 Unit/Ml 3 Ml Vial) 0 unit SUBCUT QIDACHS [facility]; Protocol Last Admin: 10/13/23 08:46 Dose: Not Given Documented By: REYNOLD Non-Admin Reason: No Insulin Coverage Levofloxacin (Levofloxacin 750 Mg Tablet) 750 mg PO Q24H [facility] Last Admin: 10/12/23 22:39 Dose: 750 mg Documented By: FABIOLA Loratadine (Loratadine 10 Mg Tablet) 10 mg PO DAILY [facility] Last Admin: 10/13/23 08:55 Dose: 10 mg Documented By: REYNOLD Losartan Potassium (Losartan Potassium 50 Mg Tablet) 50 mg PO DAILY [facility]; Protocol Last Admin: 10/13/23 08:55 Dose: 50 mg Documented By: REYNOLD Mycophenolate Mofetil (Mycophenolate Mofetil 250 Mg Capsule) 500 mg PO BID [facility] Last Admin: 10/13/23 08:55 Dose: 500 mg Documented By: REYNOLD Omeprazole (Omeprazole 20 Mg Capsule.) 20 mg PO BID@0630,1630 [facility] Last Admin: 10/13/23 05:19 Dose: 20 mg Documented By: FABIOLA Prednisone (Prednisone 20 Mg Tablet) 40 mg PO DAILY [facility] Last Admin: 10/13/23 08:55 Dose: 40 mg Documented By: REYNOLD Tamsulosin HCl (Tamsulosin Hcl 0.4 Mg Capsule) 0.4 mg PO BEDTIME [facility] Last Admin: 10/12/23 22:39 Dose: 0.4 mg Documented By: FABIOLA Labs 10/13/23 06:10 10/13/23 06:10 Labs: Laboratory Results - last 24 hr 10/12/23 10/12/23 10/13/23 16:18 21:25 06:10 MCV 91.5 MCH 28.3 MCHC 30.9 L RDW 13.8 Plt Count 815 H MPV 9.3 L Immature Gran % (Auto) 1.1 H Neut % (Auto) 62.5 Lymph % (Auto) 28.8 [place] % (Auto) 6.3 Eos % (Auto) 1.2 Baso % (Auto) 0.1 Lymph # (Auto) 5.0 H [place] # (Auto) 1.1 Eos # (Auto) 0.2 Baso # (Auto) 0.0 Abs Immat Gran (auto) 0.19 H Absolute Neuts (auto) 10.8 H Absolute Nucleated RBC 0.000 Nucleated RBC % (auto) 0.0 VBG pH VBG pCO2 VBG pO2 VBG HCO3 VBG O2 Saturation VBG Base Excess Anion Gap 11 L Estim Creat Clear Calc 64.5 Estimated GFR > 60 POC Glucose 249 H 178 H Random Glucose 90 Calcium 9.2 B-Natriuretic Peptide 18 10/13/23 10/13/2310/12/24 07:40 07:53 11:09 MCV MCH MCHC RDW Plt Count MPV Immature Gran % (Auto) Neut % (Auto) Lymph % (Auto) [place] % (Auto) Eos % (Auto) Baso % (Auto) Lymph # (Auto) [place] # (Auto) Eos # (Auto) Baso # (Auto) Abs Immat Gran (auto) Absolute Neuts (auto) Absolute Nucleated RBC Nucleated RBC % (auto) VBG pH 7.47 H VBG pCO2 53 VBG pO2 47 VBG HCO3 39 H VBG O2 Saturation 77.0 VBG Base Excess 13.8 Anion Gap Estim Creat Clear Calc Estimated GFR POC Glucose 108 167 H Random Glucose Calcium B-Natriuretic Peptide Assessment and Plan (1) COPD with acute exacerbation: Status: Acute Plan 82-year-old female with interstitial lung disease uncontrolled diabetes mellitus hypertension hypercholesterolemia, COPD asthma overlap syndrome/ interstitial lung disease: Came to the hospital because URI like symptoms-found to have acute hypoxemic respiratory failure possib to asthma COPD overlap syndrome, possible pneumonitis possible viral (enetro/rhino): Patient initially had acute hypoxemic respiratory failure secondary to above, acute lactic acidosis-went to ICU: On high-flow, nebs, steroids, antibiotics Patient respiratory status seems to be improving, still on high-flow: Downgraded to the floor. Acute on chronic hypoxemic respiratory failure secondary to COPD exacerbation in the setting of pneumonia On baseline 2-3 L supplemental oxygen. Continue doxycycline and Levaquin, stop date 10/18. Initially on IV steroids> tapered to prednisone 40 mg daily Leukocytosis in the setting of steroid use ILd: On mycophenolate Htn :continue losartan. hlp: continue statin. dm with hyperglycemia: sec to steriods Increased basal regimen. Continue sliding scale insulin and glipizide Physical deconditioning: Physical therapy recommend short-term rehab. Patient and daughter agree. Consulted shoe caser for placement dvt and gi prophylax: ppi& heparin s/c Ongoing hospitalization need: Placement for safe disposition Quality Stroke Does the patient have a stroke diagnosis?: No VTE Prior VTE?: No VTE Risk Level:: Medical - moderate - high VTE Device Contraindication: Treatment Not Indicated VTE Drug Contraindication: N/A - Med Ordered
[2023-10-13] MEDS: Insulin Lispro 100 UNIT/ML 3 ML VIAL SUBCUT ×3 (11:27→21:19)
[2023-10-13] MEDS: polyethylene glycoL 3350 17 GM POWD.PACK PO (13:48)
[2023-10-13] MEDS: Insulin Glargine,Hum.rec.anlog 100 UNIT/ML 10 ML VIAL 12 UNIT SUBCUT (14:59)
--- NOTE | 2023-10-13 15:10 | MHC.CM.PN ---
[facility]. They have started insurance authorization. Daughter Kylee has been notified that [facility] a bed. She has accepted the bed. [facility].
[2023-10-13 16:02] LABS: Glucose, Whole Blood 365 mg/dL (60-115)
[2023-10-13 19:52] LABS: Glucose, Whole Blood 158 mg/dL (60-115)
[2023-10-13] MEDS: Tamsulosin HCL 0.4 MG CAPSULE PO (21:19)
[2023-10-13] MEDS: levoFLOXacin 750 MG TABLET PO (21:19)
[2023-10-13] MEDS: Atorvastatin Calcium 40 MG TABLET PO (21:19)
[2023-10-13] MEDS: Gabapentin 300 MG CAPSULE PO (21:19)
[2023-10-14 03:50] VITALS: BP 151/63; PULSE 65; RESP 19; TEMP 36.7; O2SAT 97
[2023-10-14] MEDS: Heparin Sodium,Porcine 5,000 UNIT/ML VIAL 5000 UNIT SUBCUT (05:22)
[2023-10-14] MEDS: Omeprazole 20 MG CAPSULE.DR PO (05:22)
[2023-10-14 06:44] LABS: MANUAL DIFF FLAG NO
[2023-10-14 06:49] LABS: Basophils Percent Auto 0.2 % (0-2); Eosinophils Absolute Auto 0.4 X10*3/uL (0.0-0.4); Eosinophils Percent Auto 2.4 % (0-4); Hematocrit 34.6 % (37.0-47.0); Hemoglobin 10.7 g/dl (12.0-16.0); Imm Gran Abs Auto 0.16 X10*3/uL (0.00-0.03); Imm Gran Pct Auto 0.9 % (0.0-0.4); Lymphocytes Percent Auto 23.9 % (20-40); Mean Corpuscular HGB Conc 30.9 g/dl (31.0-35.0); Mean Corpuscular Hemoglobin 28.5 pg (27.0-33.0); Mean Corpuscular Volume 92.3 fL (80.0-98.0); Monocytes Absolute Auto 1.1 X10*3/uL (0.1-1.2); Monocytes Percent Auto 6.6 % (2-11); Neutrophils Absolute Auto 11.2 x10*3/uL (2.0-8.3); Platelet Count 845 X10*3/uL (160-400); Red Blood Count 3.75 X10*6/uL (4.20-5.50); Red Cell Distribution Width 14.2 % (11.0-16.0); White Blood Count 16.9 X10*3/uL (4.8-10.8)
[2023-10-14 07:05] LABS: Anion Gap 12 (12-20); Blood Urea Nitrogen 14 mg/dL (9-16); Calcium 9.6 mg/dL (8.4-10.2); Carbon Dioxide 33 mmol/L (22-29); Chloride 101 mmol/L (96-108); Creatinine Clr Calc Pharmacy 59.5; Estimated Glomerular Filt Rate > 60; Glucose Random 97 mg/dL (60-115); Potassium 3.5 mmol/L (3.3-5.1); Sodium 142 mmol/L (135-145)
[2023-10-14 07:25] VITALS: BP 117/64; PULSE 107; RESP 20; TEMP 36.7; O2SAT 98
[2023-10-14 07:33] LABS: Glucose, Whole Blood 116 mg/dL (60-115)
[2023-10-14] MEDS: Albuterol/Iprat 2.5/0.5MG 3 ML AMPUL.NEB INHALE ×2 (07:46→11:36)
[2023-10-14 07:47] VITALS: PULSE 111; RESP 20; O2SAT 97
[2023-10-14] MEDS: Aspirin Enteric Coated 81 MG TABLET.DR PO (09:37)
[2023-10-14] MEDS: glipiZIDE 5 MG TABLET PO (09:37)
[2023-10-14] MEDS: predniSONE 20 MG TABLET 40 MG PO (09:37)
[2023-10-14] MEDS: Doxycycline Monohydrate 100 MG CAPSULE PO (09:37)
[2023-10-14] MEDS: Losartan Potassium 50 MG TABLET PO (09:37)
[2023-10-14] MEDS: guaiFENesin DM 600/30 1 TAB TAB.ER.12H PO (09:37)
[2023-10-14] MEDS: mycophenolate mofetiL 250 MG CAPSULE 500 MG PO (09:37)
[2023-10-14] MEDS: DULoxetine HCl 60 MG CAPSULE.DR PO (09:37)
[2023-10-14] MEDS: Loratadine 10 MG TABLET PO (09:37)
[2023-10-14 09:40] VITALS: PULSE 111
--- NOTE | 2023-10-14 09:45 | P.DS_ITS ---
DS: Providers Provider Date of Service: 10/14/23 Date of admission: 10/08/23 19:05 Primary care physician: Ciro Daniel MD DS: Diagnosis Discharge Diagnosis (1) COPD with acute exacerbation: Status: Acute DS: Summary Hospital Course Hospital Course: HPI: Ms. 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 Medical home team provided 2 duonebs and 125mg IV steroids. O2 was increased to 5L NC.? On arrival to the emergency room, the patient's blood pressure 137/54, heart rate 94, temp 98.6,? O2 sat 96% on 3L NC.? Laboratory data significant for WBC 14.0,? hemoglobin 10.4, hematocrit 33.4, platelet 717,? ESR 91, lactic acid initially 3.0 but as high as 9.2 while in the ER,? BNP 17, trop 3.7.? Procalcitonin 0.04. VBG showed a pH of 7.29, HCO3 19.? Respiratory panel negative for influenza type A and B and also RSV.? Full respiratory panel pending. Imaging: Initial CXR showed extensive interstitial lung disease but no consolidation. Repeat CXR 4 hours later suggested worsening interstitial prominence likely representing a combination of interstitial lung disease and superimposed atypical infection. ED course:? the patient was given? NS 500 mL, Solu-Medrol 125 mg, azithromycin 500 mg, ceftriaxone 1 g, albuterol x3, Mag sulfate 2 g, and Robitussin AC. She became tachypneic with a rate in the 40s and was started on high-flow. Hospital course: Patient was initially admitted to intensive care unit on high-flow nasal cannula. Was initiated on IV steroids and antibiotics. Was weaned down from high-flow nasal cannula and transferred to telemetry floor. Patient with improving oxygen requirements throughout hospitalization. Is back to 2 L baseline supplemental oxygen prior to discharge. Pulmonology was consulted for assistance. Patient with resolution of COPD exacerbation. She is hemodynamically stable to be discharged with prednisone taper, p.o. doxycycline and p.o. Levaquin. Physical therapy was consulted who recommended short-term rehab. Daughter and patient were agreeable. regional retail sales manager consulted for assistance assistance and patient to be discharged to short-term rehab facility Status at Discharge Overall status at discharge: patient is back to baseline Time Attestation Discharge Coordination Time (in mins): 40 minutes Quality: Safe Use of Opioids Does Pt have an Active Cancer Diagnosis on the Problem List?: No Quality: Stroke Does the patient have a stroke diagnosis?: No Physical Exam Vital Signs: Vital Signs: Last Vital Signs Temp 98.0 F 10/14/23 07:25 Pulse 111 H 10/14/23 07:47 Resp 20 10/14/23 07:47 BP 117/64 10/14/23 07:25 Pulse Ox 98 10/14/23 07:25 O2 Del Method Nasal Cannula 10/14/23 07:25 O2 Flow Rate 2 10/14/23 07:25 FiO2 35 10/10/23 12:04 Oxygen Flow Rate 3 10/08/23 13:31 BMI result Body Mass Index 21.3 Appearance: Alert.? Oriented X3.? cvs: rrr, [id number] , no murmur res: air entry diminshed , improvement in crackles, no wheezing abd: no rebound or guarding ,nt, bs present. ext pulses present , no cyanosis . neuro: axo3 , nonfocal. DS: Data Data Completed and Pending Labs on day of discharge: Laboratory Results - last 24 hr 10/13/23 10/13/23 10/13/23 11:09 15:58 19:49 WBC RBC Hgb Hct MCV MCH MCHC RDW Plt Count MPV Immature Gran % (Auto) Neut % (Auto) Lymph % (Auto) [place] % (Auto) Eos % (Auto) Baso % (Auto) Lymph # (Auto) [place] # (Auto) Eos # (Auto) Baso # (Auto) Abs Immat Gran (auto) Absolute Neuts (auto) Absolute Nucleated RBC Nucleated RBC % (auto) Sodium Potassium Chloride Carbon Dioxide Anion Gap BUN Creatinine Estim Creat Clear Calc Estimated GFR POC Glucose 167 H 365 H* 158 H Random Glucose Calcium 10/14/23 10/14/23 10/14/23 06:29 06:30 07:27 WBC 16.9 H RBC 3.75 L Hgb 10.7 L Hct 34.6 L MCV 92.3 MCH 28.5 MCHC 30.9 L RDW 14.2 Plt Count 845 H MPV 9.0 L Immature Gran % (Auto) 0.9 H Neut % (Auto) 66.0 Lymph % (Auto) 23.9 [place] % (Auto) 6.6 Eos % (Auto) 2.4 Baso % (Auto) 0.2 Lymph # (Auto) 4.0 [place] # (Auto) 1.1 Eos # (Auto) 0.4 Baso # (Auto) 0.0 Abs Immat Gran (auto) 0.16 H Absolute Neuts (auto) 11.2 H Absolute Nucleated RBC 0.000 Nucleated RBC % (auto) 0.0 Sodium 142 Potassium 3.5 Chloride 101 Carbon Dioxide 33 H Anion Gap 12 BUN 14 Creatinine 0.64 Estim Creat Clear Calc 59.5 Estimated GFR > 60 POC Glucose 116 H Random Glucose 97 Calcium 9.6 Imaging Chest x-ray: Radiologist's impression: ITS Impressions Chest X-Ray 10/08/23 14:10 IMPRESSION: There is no consolidation within either lung. There is extensive interstitial lung disease characterized by interstitial prominence. A new linear opacity within the right mid lung may represent linear atelectasis versus progressive interstitial lung disease. A 9 mm nodular opacity within the right parahilar region may represent a lymph node versus a pulmonary nodule. Chest X-Ray 10/08/23 18:01 IMPRESSION: Worsening interstitial prominence likely representing superimposed infection on interstitial lung disease. Chest X-Ray 10/13/23 08:34 IMPRESSION: Stable examination. No change in multifocal opacities superimposed on background of chronic interstitial lung disease. Discharge Plan Discharge Anticipated Discharge Date/Time: 10/14/23 09:38 Patient Disposition: er [facility] Discharge Diagnosis: Acute on chronic hypoxemic respiratory failure secondary to COPD exacerbation in the setting of pneumonia Referrals: Fredy,Ciro Silva MD [Primary Care Provider] - 1 Week Discharge Medications: New tamsulosin 0.4 mg Capsule 0.4 mg PO BEDTIME 30 Days Qty: 30 0RF doxycycline monohydrate 100 mg Capsule 100 mg PO Q12H 6 Days Qty: 12 0RF levofloxacin 750 mg Tablet 750 mg PO Q24H 6 Days Qty: 6 0RF Mucus DM 30-600 mg Tablet Extended Release 12 Hr 1 tab PO BID 30 Days Qty: 60 0RF loratadine 10 mg Tablet 10 mg PO DAILY 30 Days Qty: 30 0RF prednisone 20 mg tablet 20 mg PO DAILY Qty: 60 0RF Rx Instructions: Prednisone 40 mg daily x 4 days followed by prednisone 30 mg daily x 1 week followed by prednisone 20 mg daily x 1 week followed by prednisone 10 mg daily Continued (DME) [facility] G2 blood glucose moniter starter kit See Rx Instructions .Route .MEDSUPPLY Qty: 1 0RF Rx Instructions: As directed (DME) medline basic face mask See Rx Instructions .Route .MEDSUPPLY Qty: 1 11RF Rx Instructions: As directed (DME) Medline ext cuff nitrile glove sterile pairs (medium) See Rx Instructions .Route .MEDSUPPLY Qty: 1 11RF Rx Instructions: As directed (DME) Medline wall mount sharps container 3 galloon red See Rx Instructions .Route .MEDSUPPLY Qty: 1 3RF Rx Instructions: As directed (DME) O2 Gas System Home Transfill Unit ([id number]) See Rx Instructions .Route .MEDSUPPLY Qty: 1 0RF Rx Instructions: As directed (DME) medline alcohol prep pads 1.75x3 See Rx Instructions .Route .MEDSUPPLY Qty: 1 12RF Rx Instructions: As directed aspirin [Adult Aspirin Regimen] 81 mg tablet,delayed release (DR/EC) 81 mg PO DAILY 90 Days Qty: 90 3RF losartan 50 mg tablet 50 mg PO DAILY 90 Days Qty: 90 3RF cholecalciferol (vitamin D3) 50 mcg (2,000 unit) capsule 50 mcg PO DAILY 90 Days Qty: 90 3RF atorvastatin 40 mg tablet 40 mg PO QPM 90 Days Qty: 90 3RF (DME) incontinence pad, liner, disp Pad See Rx Instructions .Route Qty: 180 12RF Rx Instructions: As directed glipizide 5 mg tablet 5 mg PO DAILY Qty: 30 4RF mycophenolate mofetil 500 mg tablet 500 mg PO BID 30 Days Qty: 60 6RF duloxetine 60 mg capsule,delayed release(DR/EC) 60 mg PO DAILY 90 Days Qty: 90 2RF gabapentin 300 mg capsule 300 mg PO BEDTIME 90 Days Qty: 90 2RF metformin 750 mg tablet extended release 24 hr 750 mg PO BID 90 Days Qty: 180 2RF (DME) bedside commode Kit See Rx Instructions .Route Qty: 1 0RF Rx Instructions: As directed (DME) medlinecontour plus bladder control pads See Rx Instructions .Route .MEDSUPPLY Qty: 90 12RF Rx Instructions: As directed (DME) Washable Incontinence Pads (Commercial Cleaner Pad) 0 .Route .MEDSUPPLY Qty: 60 12RF Rx Instructions: As directed (DME) Mattress for hospital bed 0 .Route .MEDSUPPLY Qty: 1 0RF Rx Instructions: As directed (DME) Semi- Electric Hospital Bed with Mattress and Rails See Rx Instructions .Route .MEDSUPPLY Qty: 1 0RF Rx Instructions: As directed (DME) pen needle, diabetic [BD Ultra-Fine Micro Pen Needle] 32 gauge x 1/4 needle See Rx Instructions .Route Qty: 100 3RF Rx Instructions: As directed inject insulin one a day albuterol sulfate 2.5 mg /3 mL (0.083 %) solution for nebulization 2.5 mg inhalation QID PRN (Reason: Shortness Of Breath Or Wheezing) acetaminophen 500 mg tablet 1,000 mg PO TID PRN (Reason: Pain) insulin glargine [Lantus Solostar U-100 Insulin] 100 unit/mL (3 mL) insulin pen 10 unit subcut DAILY@1400 (DME) Oxygen Home Use Kit See Rx Instructions .Route Rx Instructions: As directed Discontinued prednisone 10 mg tablet 10 mg PO DAILY 30 Days Qty: 30 6RF Discharge Orders: Discharge Order (Routine); Ordered 10/14/23 Ordered By: Chelsy Villeda Diet: Diabetic diet Activity on Discharge: As tolerated Stand Alone Forms: Patient Portal Discharge page Print Language: Vietnamese Care Plan Goals: Follow-up with PCP within 1 week Health Concerns: Chronic hypoxemic respiratory failure due to COPD on baseline 2 L supplemental oxygen Interstitial lung disease Insulin-dependent diabetes mellitus Plan of Treatment: Doxycycline p.o. 100 mg twice daily, stop date 10/18 Levofloxacin 750 mg daily, stop date 10/18 Prednisone taper as above Assessment: As above
--- NOTE | 2023-10-14 10:32 | MHC.CM.PN ---
Patient has been medically cleared for dc to [facility] today. [facility] has CCA authorization and [facility] has been booked for 1 PM diamond picker today (trip auth # is [id number]). DAGO spoke with Daughter/HCP/Kylee @ [phone], who is in agreement with this dc plan. Kylee wishes to speak with Patient to confirm that she approves of this dc plan. CM will follow.
--- NOTE | 2023-10-14 10:45 | P.F2F_ITS ---
Service Date Service Date: 10/14/23 Encounter Date of encounter: 10/14/23 Reasons for Services Signs and symptoms assessed: Physical deconditioning Reason for physical therapy: home safety and mobility, therapeutic exercises, restore joint function, gait/transfer training, assess need for DME, ADL training and energy conservation Homebound: Leaving the home is medically contraindicated at this time without the asist of a device and/or another person due th the listed conditions above and below. Reason homebound: weakness related to hospital stay Certification: Based on the above findings, I certify that this patient is confined to the home and needs intermittent intermediate care, physical therapy and/or speech therapy, or continues to need occupational therapy. The patient is under my care, and I have initiated the establishment of the plan of care. The patient will be followed by a physician who will periodically review the plan of care. Time Spent With Patient Time: Total time managing care of this patient today ____ minutes.
--- NOTE | 2023-10-14 10:55 | MHC.CM.PN ---
Patient prefers to go home with [facility] instead of [facility] has been made aware of today's dc. Patient's Daughter/HCP/Kylee will transport Patient home today at 1 PM. is aware.
--- NOTE | 2023-10-14 10:59 | MHC.CM.PN ---
Last IMM addressed on 10/12/2023.
[2023-10-14 11:05] LABS: Glucose, Whole Blood 233 mg/dL (60-115)
[2023-10-14] MEDS: Insulin Lispro 100 UNIT/ML 3 ML VIAL SUBCUT (11:20)
[2023-10-14 11:37] VITALS: PULSE 111; RESP 20; O2SAT 97
[2023-10-14 11:41] VITALS: BP 123/68; PULSE 88; RESP 20; TEMP 36.8; O2SAT 95
--- NOTE | 2023-10-14 15:34 | P.F2F_ITS ---
Service Date Service Date: 10/14/23 Encounter Date of encounter: 10/14/23 Reasons for Services Signs and symptoms assessed: Physical deconditioning Reason for [facility]: administration of IV, SQ, or IM injection, medication management and medication treatment Homebound: Leaving the home is medically contraindicated at this time without the asist of a device and/or another person due th the listed conditions above and below. Reason homebound: weakness related to hospital stay Certification: Based on the above findings, I certify that this patient is confined to the home and needs intermittent [facility] care, physical therapy and/or speech therapy, or continues to need occupational therapy. The patient is under my care, and I have initiated the establishment of the plan of care. The patient will be followed by a physician who will periodically review the plan of care. Time Spent With Patient Time: Total time managing care of this patient today ____ minutes.
== END 2023-10-14 13:12 | disposition home health service (06) | DRG 190 ==
LOC: HO.ED 14:22 → HO.EDOVER 19:16 → HO.ICU 10-09 00:03 → HO.IMC 10-09 05:56
PROVIDERS: Emergency Medicine; Internal Medicine; Nurse Practitioner Family; Admitting Provider Internal Medicine Pulmonary Disease; Emergency Provider Emergency Medicine; PCP Internal Medicine; Visit Provider Student in an Organized Health Care Education/Training Program
DX: J44.0 Chronic obstructive pulmonary disease with (acute) lower respiratory infection (principal); J12.9 Viral pneumonia, unspecified; J96.21 Acute and chronic respiratory failure with hypoxia; E87.21 Acute metabolic acidosis; J44.1 Chronic obstructive pulmonary disease with (acute) exacerbation; Z99.81 Dependence on supplemental oxygen; D64.9 Anemia, unspecified; J84.10 Pulmonary fibrosis, unspecified; B97.10 Unspecified enterovirus as the cause of diseases classified elsewhere; B97.89 Other viral agents as the cause of diseases classified elsewhere; E78.5 Hyperlipidemia, unspecified; D75.839 Thrombocytosis, unspecified; E11.65 Type 2 diabetes mellitus with hyperglycemia; Z20.822 Contact with and (suspected) exposure to COVID-19; Z79.4 Long term (current) use of insulin; Z79.52 Long term (current) use of systemic steroids; Z79.82 Long term (current) use of aspirin; Z79.84 Long term (current) use of oral hypoglycemic drugs; Z79.899 Other long term (current) drug therapy
CPT/HCPCS: 0241U; 36415; 71045; 80048; 80076; 81001; 81003; 82040; 82803; 82947; 83605; 83690; 83735; 83880; 84100; 84145; 84484; 85025; 85027; 87040; 87633; 93005; 94640; 97116; 97162; 99285; C1758; J0456; J0696; J1644; J1940; J1956; J2919; J3475

== ENCOUNTER → 2023-10-08 13:15 | Outpatient (BNV) | payer OTHER, SELFPAY | PROVIDERS: Emergency Provider Emergency Medicine; PCP Internal Medicine; Visit Provider Internal Medicine | DX: I49.8 Other specified cardiac arrhythmias (principal) | CPT/HCPCS: 93010 ==

== ENCOUNTER 2023-10-08 19:05 | Outpatient (BNV) | payer OTHER, SELFPAY | END 2023-10-09 22:29 | PROVIDERS: Admitting Provider Internal Medicine Pulmonary Disease; Emergency Provider Emergency Medicine; PCP Internal Medicine; Visit Provider Internal Medicine | DX: R07.9 Chest pain, unspecified (principal); I49.1 Atrial premature depolarization | CPT/HCPCS: 93010 ==

== ENCOUNTER → 2023-10-08 19:05 | Outpatient (BNV) | payer OTHER, SELFPAY | PROVIDERS: Admitting Provider Internal Medicine Pulmonary Disease; Emergency Provider Emergency Medicine; PCP Internal Medicine; Visit Provider Hospitalist | DX: J18.9 Pneumonia, unspecified organism (principal); J44.1 Chronic obstructive pulmonary disease with (acute) exacerbation; B34.9 Viral infection, unspecified | CPT/HCPCS: 99223 ==

== ENCOUNTER → 2023-10-08 19:05 | Outpatient (BNV) | payer OTHER, SELFPAY | PROVIDERS: Admitting Provider Internal Medicine Pulmonary Disease; Emergency Provider Emergency Medicine; PCP Internal Medicine; Visit Provider Internal Medicine | DX: J44.1 Chronic obstructive pulmonary disease with (acute) exacerbation (principal) | CPT/HCPCS: 99231; 99232; 99239; G0180 ==

== ENCOUNTER → 2023-10-08 19:05 | Outpatient (BNV) | payer OTHER, SELFPAY | PROVIDERS: Admitting Provider Internal Medicine Pulmonary Disease; Emergency Provider Emergency Medicine; PCP Internal Medicine; Visit Provider Nurse Practitioner Family | DX: J96.21 Acute and chronic respiratory failure with hypoxia (principal); J84.9 Interstitial pulmonary disease, unspecified; J44.1 Chronic obstructive pulmonary disease with (acute) exacerbation; D72.829 Elevated white blood cell count, unspecified; E87.20 Acidosis, unspecified; Z86.2 Personal history of diseases of the blood and blood-forming organs and certain disorders involving the immune mechanism; D47.3 Essential (hemorrhagic) thrombocythemia | CPT/HCPCS: 99291 ==

== ENCOUNTER 2023-10-19 12:08 | Outpatient (AMB) | payer OTHER, SELFPAY ==
[2023-10-19 12:35] VITALS: BP 110/60; PULSE 103; O2SAT 98; BMI 21.5
--- NOTE | 2023-10-19 12:35 | MHC.PC.OV ---
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: Not Required per policy Accompanied by: Self / Same As Patient Allergies No Known Allergies Allergy (Verified 10/19/23 12:35) Tobacco use date assessed: 08/06/23 Fall risk assessment: No Falls in past year Last assessed Fall Risk: 10/19/23 Dental Screening Dental Screen Date: 10/19/23 Did you have a dental visit in the last 12 months?: Yes Did you have a dental problem in the last 6 months where you did not have access to dental care?: No Was dental information given to patient?: Patient has dentist HPI [facility] /[facility] HPI Details 82 year old female with DM , ILD, HTN m, hypercholesterolemia seen in July 2023. Since that time admitted COPD with acute exacerbation October 08, 2023 IV steroids and antibiotics tapered to doxycycline and Levaquin. PFSH Medical History Viral syndrome Asthma-COPD overlap syndrome Chronic respiratory failure Acute and chronic respiratory failure Pneumonitis Generalized anxiety disorder Urinary incontinence CVA (cerebral vascular accident) Osteopenia Lumbar spinal stenosis Interstitial pulmonary fibrosis Insomnia Cystocele Hypertension Hypercholesterolemia Type 2 diabetes mellitus with hyperglycemia Surgical History Hx of section Social History Household Members: Spouse Housing: Apartment Do you presently have visiting nurse or other home services: Yes Alcohol intake: former Patient Tobacco Use Status: Never used Tobacco e-Cigarette/Vaping Use: Never Used Second Hand Smoke Exposure: No service: No Current occupational status: retired Cognitive needs: Yes ([employer] at home) Hearing needs: No Vision needs: Yes Questionnaire PHQ-9 Over the last 2 weeks, how often have you been bothered by any of the following problems? 1. Little interest or pleasure in doing things: several days 2. Feeling down, depressed, or hopeless: nearly every day 3. Trouble falling or staying asleep, or sleeping too much: nearly every day 4. Feeling tired or having little energy: more than half the days 5. Poor appetite or overeating: more than half the days 6. Feeling bad about yourself - or that you are a failure or have let yourself or your family down: not at all 7. Trouble concentrating on things, such as reading the newspaper or watching television: not at all 8. Moving or speaking so slowly that other people could have noticed. Or the opposite - being so fidgety or restless that you have been moving around a lot more than usual: more than half the days 9. Thoughts that you would be better off or of hurting yourself in some way: not at all Total score: 13 Depression Screening Interpretation: Positive Depression Screening Done: Yes Source: Developed by Drs. Farzad Mcqueen, Jono Sol and colleagues, with an educational diallo from [employer]. Thrive Questionnaire Date Thrive assessed: 10/09/23 RADHA-7 AMB Questionnaire RADHA-7 Date RADHA - 7 assessed: 10/19/23 Feeling nervous, anxious, or on edge: 0 = Not at all Not being able to stop or control worryin = Not at all Worrying too much about different things: 0 = Not at all Trouble relaxin = Not at all Being so restless that it is hard to sit still: 0 = Not at all Becoming easily annoyed or irritable: 0 = Not at all Feeling afraid as if something awful might happen: 0 = Not at all Total RADHA-7 score (0-4 normal; 5-9 mild; 10-14 moderate; 15-21 severe): 0 Source: Developed by Drs. Farzad Mcqueen, Jono oSl and colleagues, with an educational diallo from [employer]. Physical exam (Primary Care) Vital Signs: Last Vital Signs Pulse 103 H 10/19/23 12:35 BP 110/60 10/19/23 12:35 Pulse Ox 98 10/19/23 12:35 Oxygen Delivery Method Nasal Cannula 10/19/23 12:35 BMI result Body Mass Index 21.5 Tobacco/Smoking Status: Tobacco use Status Tobacco use date assessed 08/06/23 10/19/23 12:36 Patient Tobacco Use Status Never used Tobacco 10/19/23 12:36 e-Cigarette/Vaping Use Never Used 10/19/23 12:36 PHQ-9: PHQ-9 Score PHQ-9: Total score 13 10/19/23 12:56 Depression Screening Interpretation: Positive Thrive Assessment: Date of Thrive Assessment Date Thrive assessed 10/09/23 10/19/23 12:36 Const General: alert; No acute distress Eyes Conjunctivae: conjunctivae normal Resp Other: Crackles nursing home up no wheezing Cardio Rate: regular rate Rhythm: regular rhythm GI Inspection: Yes normal to inspection Extrem General: Yes normal to inspection and No edema Results AMB Hemoglobin A1c AMB Hemoglobin A1c 8.9 % Last Edit by DANIEL Alexandre on 10/19/23 12:58 Results Reviewed Results Reviewed: Laboratory Last Values Hgb A1c (Clinic) 8.9 % (4.0-6.0) H 10/19/23 12:56 Assessment and Plan Assessment & Plan (1) COPD with acute exacerbation: Code(s): J44.1 - Chronic obstructive pulmonary disease with (acute) exacerbation Plan: Patient has been placed on doxycycline and Levaquin (2) Interstitial lung disease: Comment: June 2022 Code(s): J84.9 - Interstitial pulmonary disease, unspecified Plan: Continuing to be on prednisone albuterol, mycophenolate (3) Hypertension: Comment: September 2014 echocardiogram normal left ventricular size ejection fraction 65-75% no wall motion abnormalities EKG 02/05/2020 normal sinus rhythm, left axis deviation nonspecific ST T wave changes June 2022 nuclear stress test no evidence of ski me a by EKG, myocardial perfusion scan normal perfusion left ventricular ejection fraction 69% Code(s): I10 - Essential (primary) hypertension Qualifiers: Hypertension type: essential hypertension Qualified Code(s): I10 - Essential (primary) hypertension Plan: Continue with blood pressure medication. Decrease salt intake and exercise losartan 50 mg once a day (4) Hypercholesterolemia: Code(s): E78.00 - Pure hypercholesterolemia, unspecified Plan: Avoid fried foods, chicken skin, eggs, butter margarine, pastries and meat. Be it pork or beef they have a lot of cholesterol LDL goal of less than 100 and triglyceride of less than 150. 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 Hemoglobin A1c goal of less than 7.0 with the recent steroid prescriptions for the lungs A1c is going to be high glipizide 5 mg once a day Lantus 10 units once a day metformin 750 mg twice a day (6) Weakness: Code(s): R53.1 - Weakness Plan: Will be advised to have physical therapy done at home (7) Constipation: Code(s): K59.00 - Constipation, unspecified Qualifiers: Constipation type: slow transit constipation Qualified Code(s): K59.01 - Slow transit constipation Plan: Three rules for constipation 1. Diet need to have a high fiber diet less of meat 2. Increase oral fluids 3. Exercise (8) Weight loss: Code(s): R63.4 - Abnormal weight loss Plan: Ensure prescribed for additional protein in the diet (9) Insomnia: Code(s): G47.00 - Insomnia, unspecified Qualifiers: Insomnia type: primary Qualified Code(s): F51.01 - Primary insomnia Plan: Melatonin prescribed to take regularly 30 minutes before sleep Orders: Orders AMB Hemoglobin A1c Today E1165 - Type 2 diabetes mellitus with hyperglycemia PT Evaluation and Treatment Today J44.1 - Chronic obstructive pulmonary disease with (acute) exacerbation, R53.1 - Weakness Medications: New sennosides-docusate sodium 8.6-50 mg (Senna Plus) 2 tab-caps (2 x 8.6-50 mg) PO BEDTIME 30 days 60 tabs 4RF K59.00 - Constipation, unspecified nut.tx.gluc.intol,lac-free,soy (Glucerna oral liquid) 1 ea PO .QD 30 days 30 ea 12RF R63.4 - Abnormal weight loss melatonin 3 mg PO BEDTIME PRN 30 caps 3RF sleep G47.00 - Insomnia, unspecified Coding Level of Care Code Est Pt Level 4 (29020) Diagnoses COPD with acute exacerbation J44.1 Interstitial lung disease J84.9 Essential hypertension I10 Hypertension type: essential hypertension Hypercholesterolemia E78.00 Type 2 diabetes mellitus with hyperglycemia, without long-term current use of insulin E1165 Diabetes mellitus 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
== END 2023-10-19 13:46 | disposition home or self-care (01) ==
PROVIDERS: PCP Internal Medicine; Visit Provider Internal Medicine
DX: J44.1 Chronic obstructive pulmonary disease with (acute) exacerbation (principal); J84.9 Interstitial pulmonary disease, unspecified; E11.65 Type 2 diabetes mellitus with hyperglycemia; I10 Essential (primary) hypertension; E78.00 Pure hypercholesterolemia, unspecified; R53.1 Weakness; K59.01 Slow transit constipation; R63.4 Abnormal weight loss; F51.01 Primary insomnia
CPT/HCPCS: 83036; 99214

== ENCOUNTER 2023-10-25 13:48 | Outpatient (AMB) | payer OTHER, SELFPAY ==
--- NOTE | 2023-10-25 13:59 | MHC.OFFVIS ---
Vital Signs 10/25/23 14:00 Height 5 ft 4 in Weight 125 lb 0.034 oz BMI 21.5 Pulse 89 Pulse Source Pulse Oximeter Pulse Oximetry (%) 97 Oxygen Delivery Method Room Air Intake Visit Reasons: copd Data Collection Associate Required: No Allergies No Known Allergies Allergy (Verified 10/25/23 14:05) HPI Comments Details: The patient is an 82 year woman presenting with worsening respiratory capacity now on oxygen supplementation. Apparently the patient had a CVA back in 2016. She was admitted to [facility]. Which she was there she did undergo a CT scan of the chest demonstrating interstitial lung changes as well as lymphadenopathy. The patient did follow-up with her primary care doctor which was placed at [facility]. Therefore she had a repeat CT scan again demonstrating the interstitial lung changes although the lymphadenopathy appear to have improved. We were able to look at that CT scan from 2015 from [facility]. The patient did then get a referral to Hematology Oncology due to significant thrombocytosis in the on myopathy initially. The workup was unremarkable. Patient ultimately was in her usual state health until recently when she started developing worsening shortness of breath for the last month. She started also developing some intermittent chest discomfort. Finally her family encouraged her to go to the ER and finally she did. She was seen at [facility] which had a repeat CT scan. Demonstrating a persistent interstitial changes in addition to the lymphadenopathy. I do not have the imaging studies to review. Patient was admitted to the hospital treated for pneumonia and also given prednisone. She was tested positive for COVID. Subsequently the patient was discharged on oxygen. She did follow-up with her primary care doctor. There she had a chest x-ray done at the [facility]. The patient did have a chest x-ray which I personally reviewed demonstrating evidence of pneumonitis superimposed on her interstitial lung disease. Therefore the patient is referred to Pulmonary. Currently she is on continues oxygen at 2 L. Although she is still very short of breath with minimal activity. She has also been having intermittent chest pains. During the visit we did go for brief walking and heart rate went up to about 130. During that walk the patient felt dizzy and like she was going to ?pass out?. At that moment we sat her down she regained her strength and heart rate did slow down to about 105. Weight we were able to go back to the room. I which point we did an EKG which demonstrated significant ST changes in the precordial leads suggestive of ischemia. Based on the fact the patient was crease syncopal also had intermittent chest discomfort in unstable vital signs with significant tachycardia will go ahead and refer the patient back to the ER for further evaluation. 08/21/2022 the patient is here for a pulmonary follow-up visit. The patient overall is doing well. She did have her echocardiogram which we personally reviewed. No significant pulmonary hypertension which is reassuring. She does have some diastolic dysfunction. She did start the prednisone and she is tolerating it well. Denies any significant adverse effects. She does complain of some blurred nest of the vision and some thirst. She her family does have a concomitant available in the check her sugar at times. He does 4, will be on the prednisone 10 mg daily to treat for the interstitial lung disease and will follow-up with an x-ray and 2 months. If the patient has any progression of the interstitial lung disease then we can consider antifibrotic agents. The patient continues use the oxygen with good effect. Overall she is doing better. 10/23/2022 the patient is here for a pulmonary follow-up visit. The patient overall has been doing well. She is tolerating the prednisone 10 mg daily. She did have any visit to the ER at [facility] because of chest discomfort. She was subsequently discharged. She continues use the prednisone at 10 mg daily. We did taken for 6 minutes walk testing the patient did fairly decent on a conserving device. She that she does need better portability because she cannot he handed her the tanks. Therefore going to request a portable oxygen concentrator from her [employer] company. In the meantime they can provide her with a conserving valve and smaller tank so she can carry them easier. Will go ahead and plan to repeat her pulmonary function studies which she comes back in 3-4 months. And subsequently after that will need further imaging studies. If we see any progression of the pulmonary fibrosis will consider antifibrotic agents. 02/26/2023 the patient is here for a pulmonary follow-up visit. The patient continues to have significant dyspnea on exertion. she has been using the oxygen. When she leaves the house she is using her portable oxygen concentrator. She is currently using at 2 L pulse. I did advise her to increase it to 4 L pulse when she is ambulating. Sometimes she does forget to breathe through her nose and does not activate the pulse conserving device. I did talk to about the importance about that. In the meantime the patient still desaturates on a brief walking oximetry. Even on 4 L she decreases down to the high 80s. Although the portable concentrator does provide her some relief when it comes to been able to have better portability if her condition worsens she may need to go back to continues oxygen. The patient had a CT scan back in the fall 2021. will request a repeat CT scan to see if there is any evidence of any progression of the pulmonary fibrosis. The patient did attempt to do pulmonary function studies but she was not able to. If the patient demonstrates worsening fibrosis then will treat her with antifibrotic agents for progressive disease. If the patient has any problems or concerns prior to the next visit she is to call for an earlier assessment. 05/24/2023 the patient is here for hospital follow-up visit. Back in April she developed worsening respiratory symptoms and she was admitted to local hospital and was treated for COPD exacerbation. There she had a chest x-ray demonstrating her interstitial lung disease. The patient had a negative viral panel for RSV flu and COVID. She was treated with prednisone in addition to doxycycline. She felt a little better she was discharged although she is still not her baseline. She still complaining about dry cough which has been bothering her at nighttime also increasing shortness of breath requiring additional oxygen. She now has a portable oxygen concentrator which she finds very helpful. The patient however sometimes seems to be need more than the feels he can provide. She is reluctant to switch over to regular oxygen tanks. Therefore will go ahead and treat her and hopefully we can decrease the inflammation of her lungs and her breathing so she can tolerate the p.o. see better. If her symptoms worsen then at that point walk to switch over to regular continues oxygen. The patient had been on prednisone for some time but then she has stopped it. Therefore, based on her significant interstitial lung disease will go ahead and start her on 10 mg of prednisone and also start her on CellCept as a steroid sparing agent specially since she has uncontrolled diabetes at this point because of her steroid use. We did talk about Ofev as a possibility. We will follow up with her in the next couple months and see how she does on the CellCept and prednisone combination. If the patient continue has progressive disease that will go looking to starting Ofev. The patient will also undergo blood work today to assess her blood gas and also to follow up her inflammatory markers. 10/25/2023 the patient is here for a hospital follow-up visit. She is still having hard time with her breathing. She was in a hospital with enterovirus that ultimately resulted in worsening respiratory failure. The patient required high levels of oxygen. She is still requiring significant amount of oxygen. She has been on the mycophenolate 500 mg b.i.d. that she can not tolerating. In addition to that we did review her chest x-ray demonstrating some interval worsening of the interstitial lung disease. Therefore, I do believe that based on her progressive pulmonary fibrosis that she will be a good candidate for Ofev. We did talk about the adverse effects that can come off the medication and the benefits of potentially slowing down the degree of fibrosis. The patient having hard time with the conserving valve at this time. Specially since she tends to breathe through her mouth and since she has been recovering from her illness the patient has increased oxygen demands. We did do a 6 minute walk test. We did take her off the oxygen on room air the patient did require 1L to maintain a pulse ox of 94% at rest. The with activity she did require 5L nasal cannula with minimal activity to keep pox 92%. She may benefit from an Oxymizer pendant although she really does not leave the house months except for doctor's appointments. Typically when she travels she does have a transport chair. PFSH Medical History Elevated WBC count Viral syndrome Asthma-COPD overlap syndrome Chronic respiratory failure Acute and chronic respiratory failure Pneumonitis Generalized anxiety disorder Urinary incontinence CVA (cerebral vascular accident) Osteopenia Lumbar spinal stenosis Interstitial pulmonary fibrosis Insomnia Cystocele Hypertension Hypercholesterolemia Type 2 diabetes mellitus with hyperglycemia Surgical History Hx of section Social History Household Members: Spouse Housing: Apartment Do you presently have visiting nurse or other home services: Yes Alcohol intake: former Patient Tobacco Use Status: Never used Tobacco e-Cigarette/Vaping Use: Never Used Second Hand Smoke Exposure: No service: No Current occupational status: retired Cognitive needs: Yes (Walker and Cane at home) Hearing needs: No Vision needs: Yes Review of Systems Const Reports fatigue Eyes Denies change in vision ENT Reports Normal hearing present, Denies change in voice and Denies dizziness Card Denies chest pain, Reports dyspnea and Reports dyspnea on exertion Resp Reports cough, Reports dyspnea, Reports dyspnea on exertion and Denies wheezing GI Reports no additional complaints Musc Reports no additional complaints Skin/Breast Denies rash Neuro Reports Normal hearing present and Denies dizziness Endo Reports fatigue Paco/Lymph Denies easy bruising and Denies lymphadenopathy Aller/Immun Denies wheezing Physical Exam Vital Signs: Last Vital Signs Pulse 89 10/25/23 14:00 Pulse Ox 97 10/25/23 14:00 Oxygen Delivery Method Room Air 10/25/23 14:00 BMI result Body Mass Index 21.5 Last Vital Signs Temp 97 F 10/11/23 10:56 Pulse 84 10/11/23 11:14 Resp 20 10/11/23 11:14 BP 141/75 H 10/11/23 10:56 Pulse Ox 100 10/11/23 10:56 O2 Del Method Nasal Cannula 10/11/23 10:56 O2 Flow Rate 1 10/11/23 10:56 FiO2 35 10/10/23 12:04 Oxygen Flow Rate 3 10/08/23 13:31 BMI result Body Mass Index 23.2 Const General: cooperative, no acute distress and alert Orientation/consciousness: patient oriented x3 (answering appropriately.) HEENT Head: Yes normocephalic and Yes atraumatic Mouth: Normal oral and palatal mucosa present (No thrush, tongue in midline, mucosa moist.) Teeth and gingiva: edentulous (pt has about 4 teeth) Throat: Yes other (No erythema, no exudate.) Eyes Pupils: Pupils anisocoria right pupil size greater than left (pear shaped, fixed. Pt reports near blindness), Pupils not reactive on the right and Pupil size comments on the right 5 and on the left 2 Neck Neck: Yes supple (no thyromegaly, trachea midline.) Chest Chest palpation & inspection: normal inspection of the chest Resp Effort & Inspection: normal respiratory effort Auscultation: crackles and diminished lung sounds bilateral Cardio Jugular venous distension: no JVD Rate: regular rate Rhythm: regular rhythm GI Palpation (GI): Soft to palpation (nondistended.) and nontender Skin General skin exam: no rashes or lesions noted Neuro General: patient oriented x3 (answering appropriately.) Cranial nerves: Yes Normal hearing present Extrem General: Yes full ROM, Yes capillary refill normal and Yes no clubbing, cyanosis or edema Psych Affect: normal affect Attitude: cooperative Office Procedures 6 Minute Walk Time:: 22:42 SPO2 % at rest: 87 Pulse at rest: 98 Supplemental Oxygen: The Patient was hypoxic at rest to 87% which point we placed her on 1 L oxygen. Then we increase it to 2 L to maintain a pulse ox of 94%. The patient has ambulated and her oxygen dropped very quickly. On 4 L she still dropped her pulse oximeter down to AV 5%. We placed her on 5 L maintain her around 92%. She was still visibly dyspneic with a dyspnea score 8/10. 20037 - 6 Minute Walk Results Reviewed Results Reviewed: personally reviewed CXRs from 09/2023 Assessment & Plan Assessment & Plan (1) Chronic respiratory failure: Code(s): J96.10 - Chronic respiratory failure, unspecified whether with hypoxia or hypercapnia Category: Medical Qualifiers: Respiratory failure complication: hypoxia Qualified Code(s): J96.11 - Chronic respiratory failure with hypoxia (2) Pneumonitis: Code(s): J18.9 - Pneumonia, unspecified organism Category: Medical (3) Interstitial lung disease: Comment: June 2022 Code(s): J84.9 - Interstitial pulmonary disease, unspecified Category: Medical Plan continue Prednisone 10mg increase cellcept 1000mg BID continue oxygen supplementation: 2L at rest, 5L with activity start anti fibrotic agent, OFEV due to worsening disease F/U 3-4 months Coding Level of Care Code Est Pt Level 5 (66141) Diagnoses Chronic respiratory failure with hypoxia J96.11 Respiratory failure complication: hypoxia Pneumonitis J18.9 Interstitial lung disease J84.9 CPT Codes Coding ([id number]) Time Spent (min) 40
[2023-10-25 14:00] VITALS: PULSE 89; O2SAT 97; BMI 21.5
[2023-10-25 22:41] VITALS: PULSE 98; O2SAT 87
== END 2023-10-25 14:47 | disposition home or self-care (01) ==
PROVIDERS: PCP Internal Medicine; Visit Provider Hospitalist
DX: J96.11 Chronic respiratory failure with hypoxia (principal); J18.9 Pneumonia, unspecified organism
CPT/HCPCS: 94618; 99215

== ENCOUNTER → 2023-10-25 13:48 | Outpatient (BNVA) | payer OTHER, SELFPAY | PROVIDERS: PCP Internal Medicine; Visit Provider Hospitalist | DX: J96.11 Chronic respiratory failure with hypoxia (principal); J18.9 Pneumonia, unspecified organism; J84.9 Interstitial pulmonary disease, unspecified | CPT/HCPCS: 94618; 99212 ==

== ENCOUNTER 2023-11-12 11:03 | Inpatient (IN) | payer OTHER, SELFPAY ==
[2023-11-12] VITALS (12 sets, daily range): BP systolic 138–152; BP diastolic 66–76; PULSE 99–122; RESP 14–40; TEMP 36.8; O2SAT 91–100; BMI 21.4
--- NOTE | ~2023-11-12 | XR_ITS ---
EXAMINATION: XR CHEST CLINICAL INFORMATION: Dyspnea. COMPARISON: Chest radiograph dated 10/13/2023. TECHNIQUE: Frontal view of the chest was obtained. FINDINGS: The heart appears mildly enlarged. There is calcific atherosclerotic disease of the aorta. The degree of diffuse bilateral airspace disease appears slightly increased compared with the prior study. There is no large pleural effusion. No pneumothorax. No acute osseous abnormality. XR/XR chest 1V IMPRESSION: Worsening diffuse bilateral airspace disease. This is superimposed on a background of chronic interstitial lung disease.
--- NOTE | ~2023-11-12 | CT_ITS ---
EXAMINATION: CT CHEST WITHOUT CONTRAST CLINICAL INFORMATION: Hypoxia COMPARISON: 11/12/2023 chest radiograph, 04/20/[address] TECHNIQUE: Multidetector volumetric CT imaging of the chest was done. Axial MIP volume rendering provided. Sagittal and coronal reformatted images were obtained. This CT examination was performed using dose optimization techniques as appropriate, variously including the following: *Automated exposure control *Adjustment of mA and/or kV according to patient size (this includes techniques or standardized protocols for targeted exams where dose is matched to indication/reason for exam; i.e. extremities or head) *Use of iterative reconstruction technique DLP: 2 5 mGy-cm FINDINGS: PATIENT ACCOUNTS SPECIALIST: Enlarged heart, aortic calcifications, increased interstitial markings, elevated right hemidiaphragm LUNGS: Trachea and bronchi are patent. Study limited by respiratory motion and low lung volumes. Superimposed on underlying chronic interstitial lung disease are groundglass opacities with consolidative appearance bilateral lower lobes. MEDIASTINUM: Right thyroid calcification otherwise unremarkable. Small hiatal hernia. Mediastinal lymphadenopathy again identified. Limited evaluation of enlarging bilateral hilar without IV contrast but suspect increasing central vascularity as opposed to decreasing lymphadenopathy. Pulmonary arteries remain enlarged. Aorta is nonaneurysmal with atherosclerotic calcifications. Heart remains enlarged. Small pericardial effusion. CORONARY ARTERY CALCIFICATION: None visualized on this study. PLEURA: There is no pleural effusion. No pleural mass or thickening. AXILLA: No lymphadenopathy. UPPER ABDOMEN: Stable hypoechoic density with calcifications and capsular retraction at the right hepatic dome. Liver remains enlarged. OSSEOUS STRUCTURES: No suspicious osseous lesions. CT/CT chest wo IV con IMPRESSION: Acute process superimposed on chronic interstitial lung disease. Suspect vascular congestion with pulmonary edema. Bibasilar pneumonias not excluded. Cardiomegaly and small pleural effusion. Fleischner guidelines were followed.
[2023-11-12 12:06] LABS: Glucose, Whole Blood 173 mg/dL (60-115)
--- NOTE | 2023-11-12 12:24 | ECG_ITS ---
Test Reason : DYSPNEA Blood Pressure : / mmHG Vent. Rate : 110 BPM Atrial Rate : 110 BPM P-R Int : 134 ms QRS Dur : 072 ms QT Int : 348 ms P-R-T Axes : 026 -29 038 degrees QTc Int : 470 ms Sinus tachycardia Left axis deviation. Otherwise normal ECG When compared with ECG of 09-OCT-2023 22:23, Premature ventricular complexes are now Present No significant changes seen Referred By: Irma Stone Electronically Signed By:Mejia Nicole
[2023-11-12] MEDS: Albuterol Sulfate 5 MG, Albuterol/Iprat 2.5/0.5MG 3 ML 3 ML INHALE (12:43)
--- NOTE | 2023-11-12 12:58 | ED_ITS ---
HPI - SOB/Dyspnea General Chief Complaint: Dyspnea Stated Complaint: DIFF BREATHING Time Seen by Provider: 11/12/23 12:01 Source: patient, family, EMS and old records reviewed Mode of arrival: EMS Limitations: no limitations History of Present Illness ED Provider: KIMMY HPI Narrative: 82 yo female with PMH of COPD (steroid dependent) on 2-3L at baseline unless walking follows with [facility], UTI, chronic respiratory failure, ILD, thrombocytosis, CVA, HTN, DM2, HLD just admitted here for enterovirus URI infection she comes in today with daughter with c/o not feeling well. Her son stayed with her overnight and found her O2 tubing off around 7am and put it back on. She called her daughter and daughter showed up at 911am noting mom looked ill and the patients BS was 222, O2 was 46% so she bumped her up to 5L and called 911. She couldn't get her up past the 60s with her concentrator and home O2. EMS arrived and put her 5L NC on EMS O2 and patient went up to 100% and started to feel better. Currently she notes she is very tired. MD elicited complaint: shortness of breath Pertinent past history: COPD and asthma Onset (ago): hour(s) (since this AM) Context: recent illness and other (lack of oxygent) Related Data Home Medications ?Medication ?Instructions ?Recorded ?Confirmed Oxygen Home Use 10/23/22 04/27/23 acetaminophen 500 mg tablet 1,000 mg PO TID PRN Pain 10/08/23 10/08/23 albuterol sulfate 2.5 mg/3 mL 2.5 mg inhalation QID PRN 10/08/23 10/08/23 (0.083 %) solution for nebulization Shortness Of Breath Or Wheezing insulin glargine 100 unit/mL (3 10 unit subcut DAILY@1400 10/08/23 10/08/23 mL) subcutaneous pen (Lantus Solostar U-100 Insulin) Previous Rx's ?Medication ?Instructions ?Recorded evencare G2 blood glucose moniter #1 ea 10/02/21 starter kit Medline ext cuff nitrile glove #1 ea 12/03/21 sterile pairs (medium) Medline wall mount sharps #1 ea 12/03/21 container 3 galloon red medline basic face mask #1 ea 12/03/21 O2 Gas System Home Transfill Unit #1 ea 11/23/22 ([id number]) medline alcohol prep pads 1.75x3 #1 ea 01/25/23 aspirin 81 mg tablet,delayed 81 mg PO DAILY 90 days #90 tabs 03/05/23 release (Adult Aspirin Regimen) atorvastatin 40 mg tablet 40 mg PO QPM 90 days #90 tabs 03/05/23 cholecalciferol (vitamin D3) 50 50 mcg PO DAILY 90 days #90 caps 03/05/23 mcg (2,000 unit) capsule losartan 50 mg tablet 50 mg PO DAILY 90 days #90 tabs 03/05/23 mycophenolate mofetil 500 mg tablet 500 mg PO BID 30 days #60 tabs 05/24/23 duloxetine 60 mg capsule,delayed 60 mg PO DAILY 90 days #90 caps 05/28/23 release gabapentin 300 mg capsule 300 mg PO BEDTIME 90 days #90 caps 05/28/23 metformin 750 mg tablet,extended 750 mg PO BID 90 days #180 tabs 05/28/23 release 24 hr Washable Incontinence Pads (Web User Experience Strategist #60 ea 07/09/23 Pad) commode (bedside commode) #1 ea 07/09/23 medlinecontour plus bladder #90 ea 07/09/23 control pads Mattress for hospital bed #1 ea 07/12/23 Semi- Electric Hospital Bed with #1 ea 07/12/23 Mattress and Rails pen needle, diabetic 32 gauge x #100 ea 08/18/23 1/ (BD Ultra-Fine Micro Pen Needle) dextromethorphan-guaifenesin 30 1 tab PO BID 30 days #60 tabs 10/14/23 mg-600 mg tablet extended [id number] hr (Mucus DM) levofloxacin 750 mg tablet 750 mg PO Q24H 6 days #6 tabs 10/14/23 loratadine 10 mg tablet 10 mg PO DAILY 30 days #30 tabs 10/14/23 prednisone 20 mg tablet 20 mg PO DAILY #60 tabs 10/14/23 tamsulosin 0.4 mg capsule 0.4 mg PO BEDTIME 30 days #30 caps 10/14/23 glipizide 5 mg tablet 5 mg PO DAILY #30 tabs 10/16/23 melatonin 3 mg capsule 3 mg PO BEDTIME PRN sleep #30 caps 10/19/23 nut.tx.gluc.intol,lac-free,soy 1 ea PO .QD 30 days #30 10/19/23 (Glucerna oral liquid) sennosides 8.6 mg-docusate sodium 2 tab-cap (2 x 8.6-50 mg) PO 10/19/23 50 mg tablet (Senna Plus) BEDTIME 30 days #60 tabs BEDSIDE COMMODE #1 10/26/23 GERMICIDAL DISPOSABLE WIPES #2 10/26/23 HOSPITAL BED #1 10/26/23 MEDIUM PULL UPS #90 10/26/23 RECLINER #1 10/26/23 ULTRA THIN PADS #30 10/26/23 ULTRASORB UNDER PADS #1 10/26/23 WIPES #2 10/26/23 incontinence pad, liner, disp #180 10/26/23 Allergies Allergy/AdvReac Type Severity Reaction Status Date / Time No Known Allergies Allergy Verified 11/12/23 11:38 Review of Systems 2 Review of Systems: Constitutional : No Fever, no Chills ENT/Mouth : No Hoarseness, No sore throat, No Rhinorrhea Eyes: No Redness, No Discharge, No Vision Changes Cardiovascular : No Chest Pain, positive SOB, positive Dyspnea on Exertion, No Edema Respiratory : positive Cough, No Sputum, positive Wheezing, Gastrointestinal : No Nausea, No Vomiting, No Diarrhea, No abdominal Pain Genitourinary : No Dysuria, No Hematuria Musculoskeletal : No joint pain, No Myalgias Skin : No rash Neuro : No Weakness, No Numbness, No Headache Psych : No anxiety, depression Heme/Lymph: No Bruising, No Bleeding Endocrine : No Polyuria, No Polydipsia All other systems reviewed and are negative [facility] Past Medical History Attestation statement: The following information was validated with the patient. Source: old records reviewed Medical History Elevated WBC count Viral syndrome Asthma-COPD overlap syndrome Chronic respiratory failure Acute and chronic respiratory failure Pneumonitis Generalized anxiety disorder Urinary incontinence CVA (cerebral vascular accident) Osteopenia Lumbar spinal stenosis Interstitial pulmonary fibrosis Insomnia Cystocele Hypertension Hypercholesterolemia Type 2 diabetes mellitus with hyperglycemia Surgical History Hx of section Social History Social History Household Members: Spouse Housing: Apartment Do you presently have visiting nurse or other home services: Yes Alcohol intake: former Patient Tobacco Use Status: Never used Tobacco e-Cigarette/Vaping Use: Never Used Second Hand Smoke Exposure: No Advance Directives: Yes Advance Directives on File: Yes Advance Directives Date on File: 10/15/23 service: No Current occupational status: retired Cognitive needs: Yes ([employer] at home) Hearing needs: No Vision needs: Yes Physical Exam 2 Vital Signs: Vital Signs: Last Vital Signs Temp 98.2 F 11/12/23 11:35 Pulse 104 H 11/12/23 14:12 Resp 14 11/12/23 14:12 BP 141/66 H 11/12/23 14:12 Pulse Ox 91 L 11/12/23 14:12 O2 Del Method High Flow Nasal C annula 11/12/23 14:12 O2 Flow Rate 40 11/12/23 14:12 Oxygen Flow Rate 3 11/12/23 11:35 BMI result Body Mass Index 21.4 Appearance: Alert. Oriented X3. No acute distress. Eyes: Pupils equal, round and reactive to light. ENT: Pharynx normal. Neck: Normal inspection. Neck supple. CVS: Normal heart rate and rhythm. Pulses normal. Respiratory: No respiratory distress. Breath sounds very diminished some exp wheeze noted rales both bases noted Abdomen: Soft and nontender. Skin: Skin warm and dry. Normal skin color. Normal skin turgor. Extremities: No lower extremity edema. Neuro: Oriented X 3. No motor deficit. No sensory deficit. Course Course Course Narrative: lactic acidosis likely due to hypoxia and albuterol use not infection or severe sepsis Reevaluation(s) Reevaluation #1: similar presentation as last admission - RR up to 50s, 82% on any movement even on her 4L NC, at this time after review of CXR possible worsening infection suspected LL IV cefepime and azithromycin ordered 203pm to be placed on high flow for her work of breathing VBG normal, BNP normal will hold off NIPPV. 203pm Reevaluation #2: patient is full code but states she would never want a trach Medications Administered Discontinued Medications Generic Name Dose Route Start Last Admin Trade Name Freq PRN Reason Stop Dose Admin Albuterol Sulfate 5 mg/ 0 mg 11/12/23 12:39 11/12/23 12:43 Albuterol/Ipratropium 3 ml INHALE 11/12/23 12:40 1 each ONCE ONE Administration Sodium Chloride 1,000 mls @ 999 mls/hr 11/12/23 13:31 11/12/23 13:45 Ns IV 11/12/23 13:32 Not Given .Q1H1M ONE Sodium Chloride 250 mls @ 250 mls/hr 11/12/23 13:32 11/12/23 13:40 Ns IV 11/12/23 14:31 250 mls/hr .Q1H ONE Administration Cefepime HCl 1 gm/ Sodium 50 mls @ 100 mls/hr 11/12/23 14:00 11/12/23 14:30 Chloride IV 11/12/23 14:29 100 mls/hr ONCE ONE Administration Methylprednisolone Sodium Succinate 60 mg 11/12/23 12:24 11/12/23 13:24 Methylprednisolone Sod Succ 125 Mg/2 Ml Vial IVPUSH 11/12/23 12:25 60 mg ONCE ONE Administration Medical Decision Making Medical Decision Making [facility] Narrative: 82 yo female with PMH of COPD (steroid dependent) on 2-3L at baseline unless walking follows with Cline, UTI, chronic respiratory failure, ILD, thrombocytosis, CVA, HTN, DM2, HLD here with hypoxia due to likely failure of concentrator at home I have already involved respiratory therapy at this time she will need labs, CXR, EKG, VBG, IV steroids, neb and observation currently she is stable on 3L NC here. Will monitor and will need to make sure her O2 is working prior to DC Differential Diagnosis Differential Diagnoses: The differential diagnosis associated with the presentation includes O2 concentrator issue, lack of O2, respiratory failure Admission/Observation Consideration of admission/observation: Escalation of care including admission/observation considered admit given new O2 needs and worsening CXR Consult Healthcare Provider Management of the patient was discussed with: Hospitalist (will admit) Lab Data [facility] Lab Attestation statement: I reviewed the patient's lab results. 11/12/23 13:08 11/12/23 13:08 Labs: Lab Results 11/12/23 11/12/23 11/12/23 Range/Units 12:02 13:08 13:14 WBC 12.1 H (4.8-10.8) X10*3/uL RBC 3.45 L (4.20-5.50) X10*6/uL Hgb 9.9 L (12.0-16.0) g/dl Hct 31.8 L (37.0-47.0) % MCV 92.2 (80.0-98.0) fL MCH 28.7 (27.0-33.0) pg MCHC 31.1 (31.0-35.0) g/dl RDW 14.3 (11.0-16.0) % Plt Count 649 H (160-400) X10*3/uL MPV 9.0 L (9.4-12.3) fL Immature Gran % (Auto) 0.3 (0.0-0.4) % Neut % (Auto) 60.1 (45-73) % Lymph % (Auto) 25.9 (20-40) % [place] % (Auto) 7.0 (2-11) % Eos % (Auto) 6.0 H (0-4) % Baso % (Auto) 0.7 (0-2) % Lymph # (Auto) 3.1 (1.2-4.9) X10*3/uL [place] # (Auto) 0.9 (0.1-1.2) X10*3/uL Eos # (Auto) 0.7 H (0.0-0.4) X10*3/uL Baso # (Auto) 0.1 (0.0-0.2) X10*3/uL Abs Immat Gran (auto) 0.04 H (0.00-0.03) X10*3/uL Absolute Neuts (auto) 7.3 (2.0-8.3) x10*3/uL Absolute Nucleated RBC 0.000 (0.0-0.012) X10*3/uL Nucleated RBC % (auto) 0.0 (0.0-0.2) /100WBC VBG pH 7.41 (7.32-7.43) VBG pCO2 44 mmHg VBG pO2 40 mmHg VBG HCO3 28 H (22-26) mmol/L VBG O2 Saturation 62.0 % VBG Base Excess 3.7 mmol/L Sodium 141 (135-145) mmol/L Potassium 3.7 (3.3-5.1) mmol/L Chloride 105 (96-108) mmol/L Carbon Dioxide 28 (22-29) mmol/L Anion Gap 12 (12-20) BUN 6 L (9-16) mg/dL Creatinine 0.57 (0.5-1.4) mg/dL Estim Creat Clear Calc 66.8 Estimated GFR > 60 POC Glucose 173 H (60-115) mg/dL Random Glucose 237 H (60-115) mg/dL Lactic Acid 2.6 H* (0.5-2.0) mmol/L Calcium 8.8 D (8.4-10.2) mg/dL Magnesium 1.8 (1.6-2.6) mg/dL Total Bilirubin 0.6 (0.0-1.0) mg/dL Direct Bilirubin 0.3 (0.0-0.5) mg/dL AST 11 (5-31) U/L ALT 9 (0-31) U/L Alkaline Phosphatase 73 (39-117) U/L Troponin I High Sens 8.0 D (<3.5-17.0) ng/L B-Natriuretic Peptide 72 (<100) pg/mL Total Protein 6.8 (6.5-8.0) g/dL Albumin 3.4 L (3.5-5.0) g/dL Lipase 40 (8-78) U/L Independent Interpretation I performed an independent interpretation of an: EKG and Plain X-Ray Interpretation: Rate: 110 Rhythm: sinus tach [place]: left Normal P waves. Normal [place]. Normal QRS complex. ST T wave : no CALEB qTC: 470 prior studies: no acute ischemia The study has been interpreted contemporaneously by me. . Radiology Impression Discussion of test interpretation with radiology: I have reviewed the radiologist's reading. Independent Historian Clinical information obtained from an independent historian. History obtained from or confirmed by: EMS and Other (daughter) External Record Review External record reviewed: Inpatient record and Office record Critical Care Time Critical Care Time Critical Care Time: Yes Total Critical Care Time: 60 Attestation: review of records, family discussion, IVF, high flow for hypoxia I attest to this time spent taking care of the patient Discharge Plan Discharge Clinical Impression: Acute and chronic respiratory failure with hypoxia, Interstitial lung disease, Acidosis, lactic, Opacities of both lungs present on chest x-ray Patient Disposition: Admitted As Inpatient Prescriptions: No Action (DME) evencare G2 blood glucose moniter starter kit See Rx Instructions .Route .MEDSUPPLY Qty: 1 0RF Rx Instructions: As directed (DME) medline basic face mask See Rx Instructions .Route .MEDSUPPLY Qty: 1 11RF Rx Instructions: As directed (DME) Medline ext cuff nitrile glove sterile pairs (medium) See Rx Instructions .Route .MEDSUPPLY Qty: 1 11RF Rx Instructions: As directed (DME) Medline wall mount sharps container 3 galloon red See Rx Instructions .Route .MEDSUPPLY Qty: 1 3RF Rx Instructions: As directed (DME) O2 Gas System Home Transfill Unit ([id number]) See Rx Instructions .Route .MEDSUPPLY Qty: 1 0RF Rx Instructions: As directed (DME) medline alcohol prep pads 1.75x3 See Rx Instructions .Route .MEDSUPPLY Qty: 1 12RF Rx Instructions: As directed aspirin [Adult Aspirin Regimen] 81 mg tablet,delayed release (DR/EC) 81 mg PO DAILY 90 Days Qty: 90 3RF losartan 50 mg tablet 50 mg PO DAILY 90 Days Qty: 90 3RF cholecalciferol (vitamin D3) 50 mcg (2,000 unit) capsule 50 mcg PO DAILY 90 Days Qty: 90 3RF atorvastatin 40 mg tablet 40 mg PO QPM 90 Days Qty: 90 3RF mycophenolate mofetil 500 mg tablet 500 mg PO BID 30 Days Qty: 60 6RF duloxetine 60 mg capsule,delayed release(DR/EC) 60 mg PO DAILY 90 Days Qty: 90 2RF gabapentin 300 mg capsule 300 mg PO BEDTIME 90 Days Qty: 90 2RF metformin 750 mg tablet extended release 24 hr 750 mg PO BID 90 Days Qty: 180 2RF (DME) bedside commode Kit See Rx Instructions .Route Qty: 1 0RF Rx Instructions: As directed (DME) medlinecontour plus bladder control pads See Rx Instructions .Route .MEDSUPPLY Qty: 90 12RF Rx Instructions: As directed (DME) Washable Incontinence Pads (Web User Experience Strategist Pad) 0 .Route .MEDSUPPLY Qty: 60 12RF Rx Instructions: As directed (DME) Mattress for hospital bed 0 .Route .MEDSUPPLY Qty: 1 0RF Rx Instructions: As directed (DME) Semi- Electric Hospital Bed with Mattress and Rails See Rx Instructions .Route .MEDSUPPLY Qty: 1 0RF Rx Instructions: As directed (DME) pen needle, diabetic [BD Ultra-Fine Micro Pen Needle] 32 gauge x 1/4 needle See Rx Instructions .Route Qty: 100 3RF Rx Instructions: As directed inject insulin one a day glipizide 5 mg tablet 5 mg PO DAILY Qty: 30 0RF (DME) BEDSIDE COMMODE See Rx Instructions .Route .MEDSUPPLY Qty: 1 0RF Rx Instructions: As directed (DME) GERMICIDAL DISPOSABLE WIPES See Rx Instructions .Route .MEDSUPPLY Qty: 2 12RF Rx Instructions: As directed (DME) HOSPITAL BED See Rx Instructions .Route .MEDSUPPLY Qty: 1 0RF Rx Instructions: As directed (DME) incontinence pad, liner, disp Pad See Rx Instructions .Route Qty: 180 12RF Rx Instructions: As directed (DME) MEDIUM PULL UPS See Rx Instructions .Route .MEDSUPPLY Qty: 90 11RF Rx Instructions: As directed (DME) RECLINER See Rx Instructions .Route .MEDSUPPLY Qty: 1 0RF Rx Instructions: As directed (DME) ULTRA THIN PADS See Rx Instructions .Route .MEDSUPPLY Qty: 30 12RF Rx Instructions: As directed (DME) ULTRASORB UNDER PADS See Rx Instructions .Route .MEDSUPPLY Qty: 1 11RF Rx Instructions: As directed (DME) WIPES See Rx Instructions .Route .MEDSUPPLY Qty: 2 11RF Rx Instructions: As directed albuterol sulfate 2.5 mg /3 mL (0.083 %) solution for nebulization 2.5 mg inhalation QID PRN (Reason: Shortness Of Breath Or Wheezing) acetaminophen 500 mg tablet 1,000 mg PO TID PRN (Reason: Pain) insulin glargine [Lantus Solostar U-100 Insulin] 100 unit/mL (3 mL) insulin pen 10 unit subcut DAILY@1400 tamsulosin 0.4 mg Capsule 0.4 mg PO BEDTIME 30 Days Qty: 30 0RF levofloxacin 750 mg Tablet 750 mg PO Q24H 6 Days Qty: 6 0RF Mucus DM 30-600 mg Tablet Extended Release 12 Hr 1 tab PO BID 30 Days Qty: 60 0RF loratadine 10 mg Tablet 10 mg PO DAILY 30 Days Qty: 30 0RF prednisone 20 mg tablet 20 mg PO DAILY Qty: 60 0RF Rx Instructions: Prednisone 40 mg daily x 4 days followed by prednisone 30 mg daily x 1 week followed by prednisone 20 mg daily x 1 week followed by prednisone 10 mg daily sennosides-docusate sodium [Senna Plus] 8.6-50 mg tablet 2 tab-cap PO BEDTIME 30 Days Qty: 60 4RF Glucerna Liquid 1 ea PO .QD 30 Days Qty: 30 12RF melatonin 3 mg capsule 3 mg PO BEDTIME PRN (Reason: sleep) Qty: 30 3RF (DME) Oxygen Home Use Kit See Rx Instructions .Route Rx Instructions: As directed Print Language: Peruvian
[2023-11-12 13:14] LABS: MANUAL DIFF FLAG NO
[2023-11-12 13:16] LABS: Basophils Absolute Auto 0.1 X10*3/uL (0.0-0.2); Basophils Percent Auto 0.7 % (0-2); Eosinophils Absolute Auto 0.7 X10*3/uL (0.0-0.4); Hematocrit 31.8 % (37.0-47.0); Hemoglobin 9.9 g/dl (12.0-16.0); Imm Gran Abs Auto 0.04 X10*3/uL (0.00-0.03); Imm Gran Pct Auto 0.3 % (0.0-0.4); Lymphocytes Absolute Auto 3.1 X10*3/uL (1.2-4.9); Lymphocytes Percent Auto 25.9 % (20-40); Mean Corpuscular HGB Conc 31.1 g/dl (31.0-35.0); Mean Corpuscular Hemoglobin 28.7 pg (27.0-33.0); Mean Corpuscular Volume 92.2 fL (80.0-98.0); Monocytes Absolute Auto 0.9 X10*3/uL (0.1-1.2); Neutrophils Absolute Auto 7.3 x10*3/uL (2.0-8.3); Neutrophils Percent Auto 60.1 % (45-73); Platelet Count 649 X10*3/uL (160-400); Red Blood Count 3.45 X10*6/uL (4.20-5.50); Red Cell Distribution Width 14.3 % (11.0-16.0); White Blood Count 12.1 X10*3/uL (4.8-10.8)
[2023-11-12 13:20] LABS: Venous Blood Gas Refer to POC result
[2023-11-12 13:21] LABS: VBG Base Excess 3.7 mmol/L; VBG HCO3 28 mmol/L (22-26); VBG pCO2 44 mmHg; VBG pH 7.41 (7.32-7.43); VBG pO2 40 mmHg
[2023-11-12] MEDS: methylPREDNISolone Sod Succ 125 MG/2 ML VIAL 60 MG IVPUSH (13:24)
[2023-11-12 13:31] LABS: Alanine Aminotransferase 9 U/L (0-31); Albumin Level 3.4 g/dL (3.5-5.0); Alkaline Phosphatase 73 U/L (39-117); Anion Gap 12 (12-20); Aspartate Amino Transferase 11 U/L (5-31); Bilirubin Direct 0.3 mg/dL (0.0-0.5); Bilirubin Total 0.6 mg/dL (0.0-1.0); Blood Urea Nitrogen 6 mg/dL (9-16); Calcium 8.8 mg/dL (8.4-10.2); Carbon Dioxide 28 mmol/L (22-29); Chloride 105 mmol/L (96-108); Creatinine Clr Calc Pharmacy 66.8; Estimated Glomerular Filt Rate > 60; Glucose Random 237 mg/dL (60-115); Lactic Acid 2.6 mmol/L (0.5-2.0); Lipase 40 U/L (8-78); Magnesium 1.8 mg/dL (1.6-2.6); Potassium 3.7 mmol/L (3.3-5.1); Sodium 141 mmol/L (135-145); Total Protein 6.8 g/dL (6.5-8.0)
[2023-11-12 13:36] LABS: B Type Natriuretic Peptide 72 pg/mL (<100)
[2023-11-12] MEDS: 0.9 % Sodium Chloride 250 ML IV (13:40)
[2023-11-12] MEDS: cefEPime HCl 1 GM in 0.9 % Sodium Chloride 50 ML IV (14:30)
[2023-11-12 15:13] LABS: Reflex Lactate? Lactic Acid Added
--- NOTE | 2023-11-12 15:14 | PM.IMHP ---
History of Present Illness Date of Service: 11/12/23 Chief Complaint: sob 82F PMH chronic hypoxic respiratory failure on 2-5 L home O2 due to interstitial lung disease and COPD/severe persistent asthma, CVA, hypertension, chronic thrombocytosis, diabetes, presented with shortness of breath. Patient was recently admitted to [facility] [place] [place] from 10/09/23-10/14/23 for ILD exacerbation viral pneumonia. Had been in stable state from time of discharge with chronic nonproductive cough and minimal exercise tolerance. About 1-2 days prior to presentation started to have worsening dry cough and on day of presentation patient called her daughter saying she was having worsening shortness breath, found to be severely hypoxic and brought to the ED. in ED was placed on high-flow, chest x-ray with worsening bilateral opacities. Denies fever, chills, weight gain Review of Systems Review of Systems: Yes all other systems are reviewed and are negative [facility] Medical History Elevated WBC count Viral syndrome Asthma-COPD overlap syndrome Chronic respiratory failure Acute and chronic respiratory failure Pneumonitis Generalized anxiety disorder Urinary incontinence CVA (cerebral vascular accident) Osteopenia Lumbar spinal stenosis Interstitial pulmonary fibrosis Insomnia Cystocele Hypertension Hypercholesterolemia Type 2 diabetes mellitus with hyperglycemia Surgical History Hx of section Social History Household Members: Spouse Housing: Apartment Do you presently have visiting nurse or other home services: Yes Alcohol intake: former Patient Tobacco Use Status: Never used Tobacco e-Cigarette/Vaping Use: Never Used Second Hand Smoke Exposure: No Advance Directives: Yes Advance Directives on File: Yes Advance Directives Date on File: 10/15/23 service: No Current occupational status: retired Cognitive needs: Yes (Walker and Cane at home) Hearing needs: No Vision needs: Yes Meds Allergies Allergy/AdvReac Type Severity Reaction Status Date / Time No Known Allergies Allergy Verified 11/12/23 11:38 Active Medications: Current Medications Azithromycin (Azithromycin 500 Mg Tablet) 500 mg PO DAILY CRISTIAN Furosemide (Furosemide 100 Mg/10 Ml Vial) 60 mg IVPUSH ONCE ONE; Protocol Stop: 11/12/23 15:12 Azithromycin 500 mg/ Sodium (Chloride) 250 mls @ 125 mls/hr IV ONCE ONE Stop: 11/12/23 16:00 Ceftriaxone Sodium 1 gm/ (Sodium Chloride) 50 mls @ 100 mls/hr IV DAILY CRISTIAN Methylprednisolone Sodium Succinate (Methylprednisolone Sod Succ 40 Mg/Ml Vial) 40 mg IVPUSH Q12H CRISTIAN Sodium Chloride (0.9 % Sodium Chloride Flush 3 Ml Syringe) 3 ml IVFLUSH QSHIFT CRISTIAN Home Medications ?Medication ?Instructions ?Recorded ?Confirmed ?Last Taken ?Type Oxygen Home Use 10/23/22 04/27/23 Unknown History acetaminophen 500 mg tablet 1,000 mg PO TID PRN Pain 10/08/23 10/08/23 Unknown History albuterol sulfate 2.5 mg/3 mL 2.5 mg inhalation QID PRN 10/08/23 10/08/23 Unknown History (0.083 %) solution for nebulization Shortness Of Breath Or Wheezing insulin glargine 100 unit/mL (3 10 unit subcut DAILY@1400 10/08/23 10/08/23 Unknown History mL) subcutaneous pen (Lantus Solostar U-100 Insulin) Physical Exam Vital Signs and Narrative: Vital Signs: Last Vital Signs Temp 98.2 F 11/12/23 11:35 Pulse 104 H 11/12/23 14:12 Resp 14 11/12/23 14:12 BP 141/66 H 11/12/23 14:12 Pulse Ox 91 L 11/12/23 14:12 O2 Del Method High Flow Nasal C annula 11/12/23 14:12 O2 Flow Rate 40 11/12/23 14:12 Oxygen Flow Rate 3 11/12/23 11:35 BMI result Body Mass Index 21.4 General: AO X 3, no acute distress Resp: Crackles bilateral, some accessory muscles used CVS: S1,S2,RRR GI: soft, non tender, non distended Neuro: motor grossly intact, alert Psych: appropriate affect, appropriate insight Results Labs 11/12/23 13:08 11/12/23 13:08 Labs: Laboratory Results - last 24 hr 11/12/23 11/12/23 11/12/23 12:02 13:08 13:14 MCV 92.2 MCH 28.7 MCHC 31.1 RDW 14.3 Plt Count 649 H MPV 9.0 L Immature Gran % (Auto) 0.3 Neut % (Auto) 60.1 Lymph % (Auto) 25.9 [place] % (Auto) 7.0 Eos % (Auto) 6.0 H Baso % (Auto) 0.7 Lymph # (Auto) 3.1 [place] # (Auto) 0.9 Eos # (Auto) 0.7 H Baso # (Auto) 0.1 Abs Immat Gran (auto) 0.04 H Absolute Neuts (auto) 7.3 Absolute Nucleated RBC 0.000 Nucleated RBC % (auto) 0.0 VBG pH 7.41 VBG pCO2 44 VBG pO2 40 VBG HCO3 28 H VBG O2 Saturation 62.0 VBG Base Excess 3.7 Anion Gap 12 Estim Creat Clear Calc 66.8 Estimated GFR > 60 POC Glucose 173 H Random Glucose 237 H Lactic Acid 2.6 H* Calcium 8.8 D Magnesium 1.8 Total Bilirubin 0.6 Direct Bilirubin 0.3 AST 11 ALT 9 Alkaline Phosphatase 73 Troponin I High Sens 8.0 D B-Natriuretic Peptide 72 Total Protein 6.8 Albumin 3.4 L Lipase 40 Imaging Radiologist's Impressions: Impressions Chest X-Ray 11/12/23 13:23 IMPRESSION: Worsening diffuse bilateral airspace disease. This is superimposed on a background of chronic interstitial lung disease. Assessment and Plan (1) Opacities of both lungs present on chest x-ray: Status: Acute Plan 82F PMH chronic hypoxic respiratory failure on 2-5 L home O2 due to interstitial lung disease and COPD/severe persistent asthma, CVA, hypertension, chronic thrombocytosis, diabetes, presented with shortness of breath. Acute on chronic hypoxic respiratory failure secondary to ILD, COPD/severe persistent asthma with acute decompensation as well as acute on chronic diastolic CHF, possible pneumonia No sepsis, leukocytosis due to prednisone, tachycardia and lactic acidosis due to albuterol IV steroids, bronchodilators, ceftriaxone/azithromycin, IV Lasix, ceftriaxone azithromycin, pulm eval Diabetes Sliding scale insulin History of CVA Aspirin statin DVT prophylaxis with Lovenox Full Code Patient with severe hypoxia therefore expected require at least 2 midnights inpatient Quality Stroke Does the patient have a stroke diagnosis?: No VTE Prior VTE?: No VTE Risk Level:: Medical - moderate - high VTE Device Contraindication: Treatment Not Indicated VTE Drug Contraindication: N/A - Med Ordered
[2023-11-12] MEDS: Azithromycin 500 MG in 0.9 % Sodium Chloride 250 ML 125 MG IV (15:24)
--- NOTE | 2023-11-12 15:36 | PHA.MEDREC ---
Pharmacy Consult ? Medication Reconciliation Pharmacy has completed the medication reconciliation. spoke with daughter at bedside. She had a list of medications on her phone. She confirmed lantus 10 units daily around 1 pm everyday. She reports that everything from last discharge is completed. She reports she is taking prednisone 10mg daily. She reports the patient did not take any medications today.
[2023-11-12] MEDS: Furosemide 100 MG/10 ML VIAL 60 MG IVPUSH (15:56)
[2023-11-12] MEDS: 0.9 % Sodium Chloride Flush 3 ML SYRINGE IVFLUSH (15:57)
[2023-11-12] MEDS: Atorvastatin Calcium 40 MG TABLET PO (16:09)
[2023-11-12 18:16] LABS: Glucose, Whole Blood 455 mg/dL (60-115)
[2023-11-12] MEDS: Insulin Lispro 100 UNIT/ML 3 ML VIAL SUBCUT ×2 (18:18→21:14)
[2023-11-12 19:20] LABS: Glucose, Whole Blood 525 mg/dL (60-115)
[2023-11-12] MEDS: Insulin Regular, Human 100 UNIT/ML 3 ML VIAL 10 UNIT IVPUSH (19:29)
[2023-11-12] MEDS: Insulin Glargine,Hum.rec.anlog 100 UNIT/ML 10 ML VIAL 10 UNIT SUBCUT (19:30)
--- NOTE | 2023-11-12 19:50 | PC.NURSE ---
this rn assumed care of pt, pt currently on highflow nasal cannula 40L sating 96-98%. pt sinus tachy on tele 120-127bpm. aware of pt POC, pt medicated per aug.
[2023-11-12 20:11] LABS: Glucose, Whole Blood 451 mg/dL (60-115)
[2023-11-12 21:08] LABS: Glucose, Whole Blood 384 mg/dL (60-115)
--- NOTE | 2023-11-12 21:13 | PC.NURSE ---
aware of poc, pt sliding scale 10U scheduled. administered per aug.
[2023-11-12] MEDS: Gabapentin 300 MG CAPSULE PO (21:14)
[2023-11-12] MEDS: methylPREDNISolone Sod Succ 40 MG/ML VIAL IVPUSH (21:14)
[2023-11-12 22:10] LABS: Glucose, Whole Blood 344 mg/dL (60-115)
[2023-11-13] VITALS (9 sets, daily range): BP systolic 119–136; BP diastolic 62–75; PULSE 77–92; RESP 20–29; TEMP 36.3–36.8; O2SAT 93–97
[2023-11-13] MEDS: 0.9 % Sodium Chloride Flush 3 ML SYRINGE IVFLUSH ×2 (00:57→17:21)
[2023-11-13 05:04] LABS: Glucose, Whole Blood 266 mg/dL (60-115)
[2023-11-13 06:59] LABS: Hematocrit 33.9 % (37.0-47.0); Hemoglobin 10.3 g/dl (12.0-16.0); Mean Corpuscular HGB Conc 30.4 g/dl (31.0-35.0); Mean Corpuscular Hemoglobin 27.5 pg (27.0-33.0); Mean Corpuscular Volume 90.6 fL (80.0-98.0); Mean Platelet Volume 9.3 fL (9.4-12.3); Platelet Count 761 X10*3/uL (160-400); Red Blood Count 3.74 X10*6/uL (4.20-5.50); Red Cell Distribution Width 14.1 % (11.0-16.0); White Blood Count 7.2 X10*3/uL (4.8-10.8)
[2023-11-13 07:11] LABS: Anion Gap 15 (12-20); Blood Urea Nitrogen 12 mg/dL (9-16); Calcium 9.4 mg/dL (8.4-10.2); Carbon Dioxide 30 mmol/L (22-29); Chloride 101 mmol/L (96-108); Creatinine Clr Calc Pharmacy 55.2; Estimated Glomerular Filt Rate > 60; Glucose Fasting 283 mg/dL (60-99); Potassium 3.8 mmol/L (3.3-5.1); Sodium 142 mmol/L (135-145)
[2023-11-13 07:23] LABS: Glucose, Whole Blood 248 mg/dL (60-115)
[2023-11-13] MEDS: Insulin Lispro 100 UNIT/ML 3 ML VIAL SUBCUT ×6 (07:28→21:42)
[2023-11-13] MEDS: cefTRIAXone sodium 1 GM in 0.9 % Sodium Chloride 50 ML IV (08:57)
[2023-11-13] MEDS: methylPREDNISolone Sod Succ 40 MG/ML VIAL IVPUSH (08:57)
[2023-11-13] MEDS: Aspirin Enteric Coated 81 MG TABLET.DR PO (08:57)
[2023-11-13] MEDS: Azithromycin 500 MG TABLET PO (08:57)
[2023-11-13] MEDS: DULoxetine HCl 60 MG CAPSULE.DR PO (08:57)
[2023-11-13] MEDS: Cholecalciferol (Vitamin D3) 25 MCG TABLET 50 MCG PO (08:57)
[2023-11-13] MEDS: Losartan Potassium 50 MG TABLET PO (08:57)
--- NOTE | 2023-11-13 09:26 | PC.NURSE ---
patient resting quietly in bed, patient boosted and repositioned, laying on clean, dry linens. patient is alert and oriented x3. patient VSS, skin dry and intact, on high flow nasal canula, tolerating well, respirations equal and unlabored. patient medicated per MAR. patient ate breakfast
--- NOTE | 2023-11-13 10:40 | P.PNIM_ITS ---
Subjective Subjective Date of Service: 11/13/23 Interval History: sob, cough Physical Exam 2 Vital Signs: Vital Signs: Last Vital Signs Temp 97.8 F 11/13/23 07:16 Pulse 79 11/13/23 07:16 Resp 21 H 11/13/23 07:42 BP 136/75 11/13/23 07:16 Pulse Ox 93 11/13/23 07:16 O2 Del Method High Flow Nasal C annula 11/13/23 07:16 O2 Flow Rate 40 11/13/23 07:16 FiO2 35 11/13/23 07:16 Oxygen Flow Rate 3 11/12/23 11:35 BMI result Body Mass Index 21.4 General: AO X 3, dyspnea Resp: Crackles bilateral, accessory muscles used CVS: S1,S2,RRR GI: soft, non tender, non distended Neuro: motor grossly intact, alert Psych: appropriate affect, appropriate insight Objective Data Active Medications Albuterol/Ipratropium (Albuterol/Iprat 2.5/0.5mg 3 Ml Ampul.Neb) 3 ml INHALE RQ4H WHILE AWAKE PRN PRN Reason: sob Aspirin (Aspirin Enteric Coated 81 Mg Tablet.) 81 mg PO DAILY [facility] Last Admin: 11/13/23 08:57 Dose: 81 mg Documented By: JOSE MARIA Atorvastatin Calcium (Atorvastatin Calcium 40 Mg Tablet) 40 mg PO BEDTIME [facility] Last Admin: 11/12/23 16:09 Dose: 40 mg Documented By: MIKI Azithromycin (Azithromycin 500 Mg Tablet) 500 mg PO DAILY [facility] [place] Last Admin: 11/13/23 08:57 Dose: 500 mg Documented By: JOSE MARIA Duloxetine HCl (Duloxetine Hcl 60 Mg Capsule.) 60 mg PO DAILY [facility] [place] Last Admin: 11/13/23 08:57 Dose: 60 mg Documented By: JOSE MARIA Gabapentin (Gabapentin 300 Mg Capsule) 300 mg PO BEDTIME [facility] Last Admin: 11/12/23 21:14 Dose: 300 mg Documented By: MANOJ Glucose (Glucose Gel 15 Gm Gel..Gram.) 15 gm PO Q15M PRN; Protocol PRN Reason: per Hypoglycemia Standing Ord. Ceftriaxone Sodium 1 gm/ (Sodium Chloride) 50 mls @ 100 mls/hr IV DAILY [facility] [place] Last Infusion: 11/13/23 10:36 Dose: Infused Documented By: JOSE MARIA Dextrose (D10) 250 mls @ 750 mls/hr IV Q15M PRN; Protocol PRN Reason: per Hypoglycemia Standing Ord. Insulin Glargine (Insulin Glargine,Hum.Rec.Anlog 100 Unit/Ml 10 Ml Vial) 10 unit SUBCUT DAILY@1300 [facility] Insulin Human Lispro (Insulin Lispro 100 Unit/Ml 3 Ml Vial) 0 unit SUBCUT QIDACHS [facility]; Protocol Last Admin: 11/13/23 07:28 Dose: 4 unit Documented By: JOSE MARIA Losartan Potassium (Losartan Potassium 50 Mg Tablet) 50 mg PO DAILY [facility]; Protocol Last Admin: 11/13/23 08:57 Dose: 50 mg Documented By: JOSE MARIA Melatonin (Melatonin 3 Mg Tablet) 3 mg PO BEDTIME PRN PRN Reason: sleep Methylprednisolone Sodium Succinate (Methylprednisolone Sod Succ 40 Mg/Ml Vial) 40 mg IVPUSH Q12H [facility] Last Admin: 11/13/23 08:57 Dose: 40 mg Documented By: JOSE MARIA Non-Formulary Medication (Mycophenolate Mofetil) 500 mg PO BID [facility] [place] Sodium Chloride (0.9 % Sodium Chloride Flush 3 Ml Syringe) 3 ml IVFLUSH QSHIFT [facility] Last Admin: 11/13/23 07:59 Dose: Not Given Documented By: JOSE MARIA Non-Admin Reason: See Note Vitamin D (Cholecalciferol (Vitamin D3) 25 Mcg Tablet) 50 mcg PO DAILY [facility] Last Admin: 11/13/23 08:57 Dose: 50 mcg Documented By: JOSE MARIA Labs 11/13/23 06:08 11/13/23 06:08 Labs: Laboratory Results - last 24 hr 11/12/23 11/12/23 11/12/23 12:02 13:08 13:14 MCV 92.2 MCH 28.7 MCHC 31.1 RDW 14.3 Plt Count 649 H MPV 9.0 L Immature Gran % (Auto) 0.3 Neut % (Auto) 60.1 Lymph % (Auto) 25.9 [place] % (Auto) 7.0 Eos % (Auto) 6.0 H Baso % (Auto) 0.7 Lymph # (Auto) 3.1 [place] # (Auto) 0.9 Eos # (Auto) 0.7 H Baso # (Auto) 0.1 Abs Immat Gran (auto) 0.04 H Absolute Neuts (auto) 7.3 Absolute Nucleated RBC 0.000 Nucleated RBC % (auto) 0.0 VBG pH 7.41 VBG pCO2 44 VBG pO2 40 VBG HCO3 28 H VBG O2 Saturation 62.0 VBG Base Excess 3.7 Anion Gap 12 Estim Creat Clear Calc 66.8 Estimated GFR > 60 POC Glucose 173 H Random Glucose 237 H Fasting Glucose Lactic Acid 2.6 H* Lactic Acid F/U @ 2Hr Calcium 8.8 D Magnesium 1.8 Total Bilirubin 0.6 Direct Bilirubin 0.3 AST 11 ALT 9 Alkaline Phosphatase 73 Troponin I High Sens 8.0 D B-Natriuretic Peptide 72 Total Protein 6.8 Albumin 3.4 L Lipase 40 11/12/23 11/12/23 11/12/23 15:21 18:12 19:14 MCV MCH MCHC RDW Plt Count MPV Immature Gran % (Auto) Neut % (Auto) Lymph % (Auto) [place] % (Auto) Eos % (Auto) Baso % (Auto) Lymph # (Auto) [place] # (Auto) Eos # (Auto) Baso # (Auto) Abs Immat Gran (auto) Absolute Neuts (auto) Absolute Nucleated RBC Nucleated RBC % (auto) VBG pH VBG pCO2 VBG pO2 VBG HCO3 VBG O2 Saturation VBG Base Excess Anion Gap Estim Creat Clear Calc Estimated GFR POC Glucose 455 H* 525 H* Random Glucose Fasting Glucose Lactic Acid Lactic Acid F/U @ 2Hr 2.0 Calcium Magnesium Total Bilirubin Direct Bilirubin AST ALT Alkaline Phosphatase Troponin I High Sens B-Natriuretic Peptide Total Protein Albumin Lipase 11/12/23 11/12/23 11/12/23 20:07 21:04 22:06 MCV MCH MCHC RDW Plt Count MPV Immature Gran % (Auto) Neut % (Auto) Lymph % (Auto) [place] % (Auto) Eos % (Auto) Baso % (Auto) Lymph # (Auto) [place] # (Auto) Eos # (Auto) Baso # (Auto) Abs Immat Gran (auto) Absolute Neuts (auto) Absolute Nucleated RBC Nucleated RBC % (auto) VBG pH VBG pCO2 VBG pO2 VBG HCO3 VBG O2 Saturation VBG Base Excess Anion Gap Estim Creat Clear Calc Estimated GFR POC Glucose 451 H* 384 H* 344 H Random Glucose Fasting Glucose Lactic Acid Lactic Acid F/U @ 2Hr Calcium Magnesium Total Bilirubin Direct Bilirubin AST ALT Alkaline Phosphatase Troponin I High Sens B-Natriuretic Peptide Total Protein Albumin Lipase 11/13/23 11/13/23 11/13/23 05:00 06:08 07:18 MCV 90.6 MCH 27.5 MCHC 30.4 L RDW 14.1 Plt Count 761 H MPV 9.3 L Immature Gran % (Auto) Neut % (Auto) Lymph % (Auto) [place] % (Auto) Eos % (Auto) Baso % (Auto) Lymph # (Auto) [place] # (Auto) Eos # (Auto) Baso # (Auto) Abs Immat Gran (auto) Absolute Neuts (auto) Absolute Nucleated RBC 0.000 Nucleated RBC % (auto) 0.0 VBG pH VBG pCO2 VBG pO2 VBG HCO3 VBG O2 Saturation VBG Base Excess Anion Gap 15 Estim Creat Clear Calc 55.2 Estimated GFR > 60 POC Glucose 266 H 248 H Random Glucose Fasting Glucose 283 H Lactic Acid Lactic Acid F/U @ 2Hr Calcium 9.4 D Magnesium Total Bilirubin Direct Bilirubin AST ALT Alkaline Phosphatase Troponin I High Sens B-Natriuretic Peptide Total Protein Albumin Lipase Assessment and Plan (1) Opacities of both lungs present on chest x-ray: Status: Acute Plan 82F PMH chronic hypoxic respiratory failure on 2-5 L home O2 due to interstitial lung disease and COPD/severe persistent asthma, CVA, hypertension, chronic thrombocytosis, diabetes, presented with shortness of breath. Acute on chronic hypoxic respiratory failure secondary to ILD, COPD/severe persistent asthma with acute decompensation as well as acute on chronic diastolic CHF, possible pneumonia continue IV steroids, bronchodilators, ceftriaxone/azithromycin, IV Lasix, ceftriaxone azithromycin, pulm eval wean as tolerated Diabetes Sliding scale insulin History of CVA Aspirin statin DVT prophylaxis with Lovenox Full Code reason for continued hospitalization:iv diuresis, hypoxia Quality Stroke Does the patient have a stroke diagnosis?: No VTE Prior VTE?: No VTE Risk Level:: Medical - moderate - high VTE Device Contraindication: Treatment Not Indicated VTE Drug Contraindication: N/A - Med Ordered
[2023-11-13 11:32] LABS: Glucose, Whole Blood 215 mg/dL (60-115)
--- NOTE | 2023-11-13 12:21 | PM.CNPUL ---
History of Present Illness History of Present Illness Consult date: 11/13/23 Chief complaint: ild Narrative: 82-year-old lady with underlying IPF on 2-5 L of home O2, also prior history of CVA, hypertension, chronic thrombocytosis, diabetes mellitus admitted on 11/12/2023 with worsening dyspnea. On ER evaluation patient significantly more hypoxic requiring high-flow to maintain normal oximetry. She was started on empiric glucocorticoids and also empiric diuretic for underlying diastolic congestive heart failure. Overnight patient with improvement in her respiratory status and lower extremity edema with diuresis, now close to her baseline. Review of Systems Constitutional: Constitutional: Denies daytime sleepiness, Denies excessive sweating, Denies fatigue, Denies fever(s), Denies lethargy, Denies malaise, Denies night sweats, Denies snoring and Denies weight loss Eyes: Eyes: Denies blurry vision and Denies itchy eyes ENT: Denies nasal congestion, Denies post nasal drip, Denies sinus pain, Denies sinus pressure and Denies other ( Thrush) Cardiovascular: Cardiovascular: Denies chest pain, Denies pedal edema, Reports dyspnea, Denies orthopnea and Denies paroxysmal nocturnal dyspnea Respiratory: Respiratory: Denies cough, Denies hemoptysis, Denies excessive phlegm production, Reports dyspnea, Denies snoring and Denies wheezing Gastrointestinal: Gastrointestinal: Denies abdominal pain and Denies heartburn Musculoskeletal: Musculoskeletal: Denies myalgias, Denies arthralgias and Denies joint swelling Integumentary/Breasts: Skin/Breast: Denies rash Neurologic: Denies memory loss and Denies seizure-like activity Psychiatric: Psychiatric: Denies abnormal sleep pattern, Denies anxiety and Denies memory loss Endocrine: Endocrine: Denies excessive sweating, Denies fatigue and Denies heat intolerance Hematologic/Lymphatic: Hematologic/Lymphatic: Denies easy bruising Allergic/Immunologic: Allergic/Immunologic: Denies itchy eyes, Denies seasonal rhinorrhea and Denies wheezing PMFSH Past Medical History Medical History Elevated WBC count Viral syndrome Asthma-COPD overlap syndrome Chronic respiratory failure Acute and chronic respiratory failure Pneumonitis Generalized anxiety disorder Urinary incontinence CVA (cerebral vascular accident) Osteopenia Lumbar spinal stenosis Interstitial pulmonary fibrosis Insomnia Cystocele Hypertension Hypercholesterolemia Type 2 diabetes mellitus with hyperglycemia Surgical History Surgical History Hx of section Social History Social History Household Members: Spouse Housing: Apartment Do you presently have visiting nurse or other home services: Yes Alcohol intake: former Patient Tobacco Use Status: Never used Tobacco Smoked in Last 30 Days: No e-Cigarette/Vaping Use: Never Used Second Hand Smoke Exposure: No Use of substances other than those prescribed or required for medical reasons: No Advance Directives: Yes Advance Directives on File: Yes Advance Directives Date on File: 10/15/23 Do you have a plan to hurt others: No Plan Nutrition Risks: No Nutritional Risk service: No Current occupational status: retired Cognitive needs: Yes ([employer] at home) Hearing needs: No Vision needs: Yes Meds Allergies Allergy/AdvReac Type Severity Reaction Status Date / Time No Known Allergies Allergy Verified 11/12/23 11:38 Active Medications: Current Medications Albuterol/Ipratropium (Albuterol/Iprat 2.5/0.5mg 3 Ml Ampul.Neb) 3 ml INHALE RQ4H WHILE AWAKE PRN PRN Reason: sob Aspirin (Aspirin Enteric Coated 81 Mg Tablet.) 81 mg PO DAILY [facility] Last Admin: 11/13/23 08:57 Dose: 81 mg Atorvastatin Calcium (Atorvastatin Calcium 40 Mg Tablet) 40 mg PO BEDTIME [facility] Last Admin: 11/12/23 16:09 Dose: 40 mg Azithromycin (Azithromycin 500 Mg Tablet) 500 mg PO DAILY [facility] Last Admin: 11/13/23 08:57 Dose: 500 mg Duloxetine HCl (Duloxetine Hcl 60 Mg Capsule.) 60 mg PO DAILY [facility] Last Admin: 11/13/23 08:57 Dose: 60 mg Gabapentin (Gabapentin 300 Mg Capsule) 300 mg PO BEDTIME [facility] Last Admin: 11/12/23 21:14 Dose: 300 mg Glucose (Glucose Gel 15 Gm Gel..Gram.) 15 gm PO Q15M PRN; Protocol PRN Reason: per Hypoglycemia Standing Ord. Ceftriaxone Sodium 1 gm/ (Sodium Chloride) 50 mls @ 100 mls/hr IV DAILY [facility] Last Infusion: 11/13/23 10:36 Dose: Infused Dextrose (D10) 250 mls @ 750 mls/hr IV Q15M PRN; Protocol PRN Reason: per Hypoglycemia Standing Ord. Insulin Glargine (Insulin Glargine,Hum.Rec.Anlog 100 Unit/Ml 10 Ml Vial) 10 unit SUBCUT DAILY@1300 [facility] Insulin Human Lispro (Insulin Lispro 100 Unit/Ml 3 Ml Vial) 0 unit SUBCUT QIDACHS [facility]; Protocol Last Admin: 11/13/23 07:28 Dose: 4 unit Insulin Human Lispro (Insulin Lispro 100 Unit/Ml 3 Ml Vial) 5 unit SUBCUT QIDACHS [facility] Losartan Potassium (Losartan Potassium 50 Mg Tablet) 50 mg PO DAILY [facility]; Protocol Last Admin: 11/13/23 08:57 Dose: 50 mg Melatonin (Melatonin 3 Mg Tablet) 3 mg PO BEDTIME PRN PRN Reason: sleep Mycophenolate Mofetil (Mycophenolate Mofetil 250 Mg Capsule) 500 mg PO BID [facility] Prednisone (Prednisone 10 Mg Tablet) 10 mg PO DAILY [facility] Sodium Chloride (0.9 % Sodium Chloride Flush 3 Ml Syringe) 3 ml IVFLUSH QSHIFT [facility] Last Admin: 11/13/23 07:59 Dose: Not Given Vitamin D (Cholecalciferol (Vitamin D3) 25 Mcg Tablet) 50 mcg PO DAILY [facility] Last Admin: 11/13/23 08:57 Dose: 50 mcg Home Medications ?Medication ?Instructions ?Recorded ?Confirmed ?Last Taken ?Type Oxygen Home Use 10/23/22 04/27/23 Unknown History acetaminophen 500 mg tablet 1,000 mg PO TID PRN Pain 10/08/23 11/12/23 Unknown History albuterol sulfate 2.5 mg/3 mL 2.5 mg inhalation QID PRN 10/08/23 11/12/23 Unknown History (0.083 %) solution for nebulization Shortness Of Breath Or Wheezing insulin glargine 100 unit/mL (3 10 unit subcut DAILY@1300 10/08/23 11/12/23 Unknown History mL) subcutaneous pen (Lantus Solostar U-100 Insulin) prednisone 10 mg tablet 10 mg PO QAM 11/12/23 11/12/23 Unknown History sennosides 8.6 mg-docusate sodium 2 tab-cap PO BEDTIME PRN 11/12/23 11/12/23 Unknown History 50 mg tablet (Senna Plus) Constipation Physical Exam Vital Signs: Vital Signs: Last Vital Signs Temp 97.8 F 11/13/23 07:16 Pulse 79 11/13/23 07:16 Resp 21 H 11/13/23 07:42 BP 136/75 11/13/23 07:16 Pulse Ox 93 11/13/23 07:16 O2 Del Method High Flow Nasal C annula 11/13/23 07:16 O2 Flow Rate 40 11/13/23 07:16 FiO2 35 11/13/23 07:16 Oxygen Flow Rate 3 11/12/23 11:35 BMI result Body Mass Index 21.4 Const: General: no acute distress, alert and awake Eyes: Sclerae: sclerae normal EOM: EOMs intact bilaterally Neck: Neck: Yes no lymphadenopathy, Yes trachea midline and Yes supple Resp: Effort & Inspection: normal respiratory effort and no respiratory distress Auscultation: crackles (Fine inspiratory bilateral) Cardio: Rate: regular rate Rhythm: regular rhythm Heart sounds: no gallops, no murmurs and no rubs GI: Palpation (GI): Soft to palpation and Other GI palpation findings present ( Nontender) Auscultation: normal bowel sounds Extrem: General: Yes no pedal edema, No clubbing and No cyanosis Results Laboratory Findings 11/13/23 06:08 11/13/23 06:08 Abnormal lab findings: Abnormal Labs 11/12/23 11/12/23 11/12/23 12:02 13:08 13:14 WBC 12.1 H RBC 3.45 L Hgb 9.9 L Hct 31.8 L MCHC Plt Count 649 H MPV 9.0 L Eos % (Auto) 6.0 H Eos # (Auto) 0.7 H Abs Immat Gran (auto) 0.04 H VBG HCO3 28 H Carbon Dioxide BUN 6 L POC Glucose 173 H Random Glucose 237 H Fasting Glucose Lactic Acid 2.6 H* Albumin 3.4 L 11/12/23 11/12/23 11/12/23 18:12 19:14 20:07 WBC RBC Hgb Hct MCHC Plt Count MPV Eos % (Auto) Eos # (Auto) Abs Immat Gran (auto) VBG HCO3 Carbon Dioxide BUN POC Glucose 455 H* 525 H* 451 H* Random Glucose Fasting Glucose Lactic Acid Albumin 11/12/23 11/12/23 11/13/23 21:04 22:06 05:00 WBC RBC Hgb Hct MCHC Plt Count MPV Eos % (Auto) Eos # (Auto) Abs Immat Gran (auto) VBG HCO3 Carbon Dioxide BUN POC Glucose 384 H* 344 H 266 H Random Glucose Fasting Glucose Lactic Acid Albumin 11/13/23 11/13/23 11/13/23 06:08 07:18 11:28 WBC RBC 3.74 L Hgb 10.3 L Hct 33.9 L MCHC 30.4 L Plt Count 761 H MPV 9.3 L Eos % (Auto) Eos # (Auto) Abs Immat Gran (auto) VBG HCO3 Carbon Dioxide 30 H BUN POC Glucose 248 H 215 H Random Glucose Fasting Glucose 283 H Lactic Acid Albumin Assessment and Plan (1) Acute and chronic respiratory failure with hypoxia: Status: Acute (2) Interstitial lung disease: Status: Acute (3) Acute on chronic diastolic (congestive) heart failure: Status: Acute Plan Impression: 82-year-old lady with underlying IPF on supplemental O2 2-5 L, diastolic congestive heart failure admitted with acute on chronic hypoxic respiratory failure. Patient started on empiric diuresis in empiric systemic glucocorticoids with significant improvement in her respiratory status and FiO2 requirements, now almost at baseline. CT chest shows slowly worsening pulmonary fibrosis. Recommendations: Consider tapering systemic glucocorticoids back to home dose of 10 mg of prednisone daily. Consider an additional dose of diuretic. Continue to titrate FiO2 to home levels. Procedures Date of Service Date of Service: 11/13/23
[2023-11-13] MEDS: Furosemide 40 MG/4 ML VIAL IVPUSH (12:47)
[2023-11-13] MEDS: Insulin Glargine,Hum.rec.anlog 100 UNIT/ML 10 ML VIAL 10 UNIT SUBCUT (12:47)
[2023-11-13 17:09] LABS: Glucose, Whole Blood 345 mg/dL (60-115)
[2023-11-13 21:33] LABS: Glucose, Whole Blood 147 mg/dL (60-115)
[2023-11-13] MEDS: Atorvastatin Calcium 40 MG TABLET PO (21:42)
[2023-11-13] MEDS: Gabapentin 300 MG CAPSULE PO (21:42)
[2023-11-13] MEDS: mycophenolate mofetiL 250 MG CAPSULE 500 MG PO (21:42)
[2023-11-14 03:55] VITALS: BP 123/72; PULSE 80; RESP 18; TEMP 36.2; O2SAT 94
[2023-11-14] MEDS: 0.9 % Sodium Chloride Flush 3 ML SYRINGE IVFLUSH ×2 (06:41→09:21)
[2023-11-14 07:07] LABS: Hematocrit 34.4 % (37.0-47.0); Hemoglobin 10.5 g/dl (12.0-16.0); Mean Corpuscular HGB Conc 30.5 g/dl (31.0-35.0); Mean Corpuscular Hemoglobin 27.7 pg (27.0-33.0); Mean Corpuscular Volume 90.8 fL (80.0-98.0); Mean Platelet Volume 9.3 fL (9.4-12.3); Platelet Count 900 X10*3/uL (160-400); Red Blood Count 3.79 X10*6/uL (4.20-5.50); Red Cell Distribution Width 14.2 % (11.0-16.0); White Blood Count 15.6 X10*3/uL (4.8-10.8)
[2023-11-14 07:17] LABS: Alanine Aminotransferase 11 U/L (0-31); Albumin Level 3.6 g/dL (3.5-5.0); Alkaline Phosphatase 75 U/L (39-117); Anion Gap 14 (12-20); Aspartate Amino Transferase 13 U/L (5-31); Bilirubin Direct 0.2 mg/dL (0.0-0.5); Bilirubin Total 0.5 mg/dL (0.0-1.0); Blood Urea Nitrogen 14 mg/dL (9-16); Calcium 9.5 mg/dL (8.4-10.2); Carbon Dioxide 30 mmol/L (22-29); Chloride 100 mmol/L (96-108); Creatinine Clr Calc Pharmacy 62.4; Estimated Glomerular Filt Rate > 60; Glucose Fasting 153 mg/dL (60-99); Potassium 3.4 mmol/L (3.3-5.1); Sodium 141 mmol/L (135-145); Total Protein 7.2 g/dL (6.5-8.0)
[2023-11-14 07:59] LABS: Glucose, Whole Blood 138 mg/dL (60-115)
[2023-11-14 08:00] VITALS: BP 124/67; PULSE 74; RESP 20; TEMP 37.3; O2SAT 99
--- NOTE | 2023-11-14 08:57 | PM.DS ---
DS: Providers Provider Date of Service: 11/14/23 Date of admission: 11/12/23 15:08 Primary care physician: Ciro Daniel MD Consults: 11/12/23 15:07 Consult to Pulmonology Routine Consulting Provider: [facility] Pulmonology Services Reason for consultation: ild DS: Diagnosis Discharge Diagnosis (1) Acute and chronic respiratory failure with hypoxia: Status: Acute (2) Interstitial lung disease: Status: Acute (3) Acute on chronic diastolic (congestive) heart failure: Status: Acute DS: Summary Hospital Course Hospital Course: from initial hpi: 82F PMH chronic hypoxic respiratory failure on 2-5 L home O2 due to interstitial lung disease and COPD/severe persistent asthma, CVA, hypertension, chronic thrombocytosis, diabetes, presented with shortness of breath. Patient was recently admitted to [facility] from 10/09/23-10/14/23 for ILD exacerbation viral pneumonia. Had been in stable state from time of discharge with chronic nonproductive cough and minimal exercise tolerance. About 1-2 days prior to presentation started to have worsening dry cough and on day of presentation patient called her daughter saying she was having worsening shortness breath, found to be severely hypoxic and brought to the ED. in ED was placed on high-flow, chest x-ray with worsening bilateral opacities. Denies fever, chills, weight gain hospital course: Patient was admitted for acute on chronic hypoxic respiratory failure secondary to interstitial lung disease, COPD/severe persistent asthma with acute decompensation as well as acute on chronic diastolic CHF and possible pneumonia. She was treated with IV steroids, DuoNebs, ceftriaxone azithromycin, IV Lasix. She was seen by Pulmonary recommended continued diuresis, deescalating steroids. Patient was eventually weaned down to her baseline 3 L and shortness of breath improved. She will be discharged on 5 more days of azithromycin and started on Lasix 20 mg daily. For diabetes was continue sliding scale insulin. For history of CVA is continue aspirin statin. Patient is feeling better will be discharged home. Time Attestation Discharge Coordination Time (in mins): 34 Quality: Safe Use of Opioids Does Pt have an Active Cancer Diagnosis on the Problem List?: No Quality: Stroke Does the patient have a stroke diagnosis?: No Physical Exam Vital Signs: Vital Signs: Last Vital Signs Temp 99.2 F 11/14/23 08:00 Pulse 74 11/14/23 08:00 Resp 20 11/14/23 08:00 BP 124/67 11/14/23 08:00 Pulse Ox 99 11/14/23 08:00 O2 Del Method Nasal Cannula 11/14/23 08:00 O2 Flow Rate 3 11/14/23 08:00 FiO2 35 11/13/23 07:16 Oxygen Flow Rate 3 11/12/23 11:35 BMI result Body Mass Index 21.4 Const: General: no acute distress, alert and awake Eyes: Sclerae: sclerae normal EOM: EOMs intact bilaterally Neck: Neck: Yes no lymphadenopathy, Yes trachea midline and Yes supple Resp: Effort & Inspection: normal respiratory effort and no respiratory distress Auscultation: crackles (Fine inspiratory bilateral) Cardio: Rate: regular rate Rhythm: regular rhythm Heart sounds: no gallops, no murmurs and no rubs GI: Palpation (GI): Soft to palpation and Other GI palpation findings present ( Nontender) Auscultation: normal bowel sounds Extrem: General: Yes no pedal edema, No clubbing and No cyanosis DS: Data Data Completed and Pending Labs on day of discharge: Laboratory Results - last 24 hr 11/13/23 11/13/23 11/13/23 11:28 16:56 21:26 WBC RBC Hgb Hct MCV MCH MCHC RDW Plt Count MPV Absolute Nucleated RBC Nucleated RBC % (auto) Sodium Potassium Chloride Carbon Dioxide Anion Gap BUN Creatinine Estim Creat Clear Calc Estimated GFR POC Glucose 215 H 345 H 147 H Fasting Glucose Calcium Magnesium Total Bilirubin Direct Bilirubin AST ALT Alkaline Phosphatase Total Protein Albumin 11/14/23 11/14/23 06:08 07:29 WBC 15.6 H RBC 3.79 L Hgb 10.5 L Hct 34.4 L MCV 90.8 MCH 27.7 MCHC 30.5 L RDW 14.2 Plt Count 900 H MPV 9.3 L Absolute Nucleated RBC 0.000 Nucleated RBC % (auto) 0.0 Sodium 141 Potassium 3.4 Chloride 100 Carbon Dioxide 30 H Anion Gap 14 BUN 14 Creatinine 0.61 Estim Creat Clear Calc 62.4 Estimated GFR > 60 POC Glucose 138 H Fasting Glucose 153 H Calcium 9.5 Magnesium 2.0 Total Bilirubin 0.5 Direct Bilirubin 0.2 AST 13 ALT 11 Alkaline Phosphatase 75 Total Protein 7.2 Albumin 3.6 Preliminary micro results at discharge 11/12/23 13:23 Blood Culture - Preliminary Blood - Venous No growth after 24 hours. 11/12/23 13:08 Blood Culture - Preliminary Blood - Venous No growth after 24 hours. Discharge Plan Discharge Anticipated Discharge Date/Time: 11/14/23 08:51 Patient Disposition: Home, Self-Care Discharge Diagnosis: ild, chf, pna Referrals: Po,Ciro Silva MD [Primary Care Provider] - 1 Week Darrell Villalobos MD [Physician] - 1 Week Discharge Medications: New azithromycin 500 mg Tablet 500 mg PO DAILY Qty: 5 0RF furosemide [Lasix] 20 mg tablet 20 mg PO DAILY Qty: 90 0RF Continued (DME) Soligenix G2 blood glucose moniter starter kit See Rx Instructions .Route .MEDSUPPLY Qty: 1 0RF Rx Instructions: As directed (DME) medline basic face mask See Rx Instructions .Route .MEDSUPPLY Qty: 1 11RF Rx Instructions: As directed (DME) Medline ext cuff nitrile glove sterile pairs (medium) See Rx Instructions .Route .MEDSUPPLY Qty: 1 11RF Rx Instructions: As directed (DME) Medline wall mount sharps container 3 galloon red See Rx Instructions .Route .MEDSUPPLY Qty: 1 3RF Rx Instructions: As directed (DME) O2 Gas System Home Transfill Unit ([id number]) See Rx Instructions .Route .MEDSUPPLY Qty: 1 0RF Rx Instructions: As directed (DME) medline alcohol prep pads 1.75x3 See Rx Instructions .Route .MEDSUPPLY Qty: 1 12RF Rx Instructions: As directed aspirin [Adult Aspirin Regimen] 81 mg tablet,delayed release (DR/EC) 81 mg PO DAILY 90 Days Qty: 90 3RF losartan 50 mg tablet 50 mg PO DAILY 90 Days Qty: 90 3RF cholecalciferol (vitamin D3) 50 mcg (2,000 unit) capsule 50 mcg PO DAILY 90 Days Qty: 90 3RF atorvastatin 40 mg tablet 40 mg PO QPM 90 Days Qty: 90 3RF mycophenolate mofetil 500 mg tablet 500 mg PO BID 30 Days Qty: 60 6RF duloxetine 60 mg capsule,delayed release(DR/EC) 60 mg PO DAILY 90 Days Qty: 90 2RF gabapentin 300 mg capsule 300 mg PO BEDTIME 90 Days Qty: 90 2RF metformin 750 mg tablet extended release 24 hr 750 mg PO BID 90 Days Qty: 180 2RF (DME) bedside commode Kit See Rx Instructions .Route Qty: 1 0RF Rx Instructions: As directed (DME) medlinecontour plus bladder control pads See Rx Instructions .Route .MEDSUPPLY Qty: 90 12RF Rx Instructions: As directed (DME) Washable Incontinence Pads (Shaper Setter Pad) 0 .Route .MEDSUPPLY Qty: 60 12RF Rx Instructions: As directed (DME) Mattress for hospital bed 0 .Route .MEDSUPPLY Qty: 1 0RF Rx Instructions: As directed (DME) Semi- Electric Hospital Bed with Mattress and Rails See Rx Instructions .Route .MEDSUPPLY Qty: 1 0RF Rx Instructions: As directed (DME) pen needle, diabetic [BD Ultra-Fine Micro Pen Needle] 32 gauge x 1/4 needle See Rx Instructions .Route Qty: 100 3RF Rx Instructions: As directed inject insulin one a day glipizide 5 mg tablet 5 mg PO DAILY Qty: 30 0RF (DME) BEDSIDE COMMODE See Rx Instructions .Route .MEDSUPPLY Qty: 1 0RF Rx Instructions: As directed (DME) GERMICIDAL DISPOSABLE WIPES See Rx Instructions .Route .MEDSUPPLY Qty: 2 12RF Rx Instructions: As directed (DME) incontinence pad, liner, disp Pad See Rx Instructions .Route Qty: 180 12RF Rx Instructions: As directed (DME) MEDIUM PULL UPS See Rx Instructions .Route .MEDSUPPLY Qty: 90 11RF Rx Instructions: As directed (DME) ULTRA THIN PADS See Rx Instructions .Route .MEDSUPPLY Qty: 30 12RF Rx Instructions: As directed (DME) ULTRASORB UNDER PADS See Rx Instructions .Route .MEDSUPPLY Qty: 1 11RF Rx Instructions: As directed (DME) WIPES See Rx Instructions .Route .MEDSUPPLY Qty: 2 11RF Rx Instructions: As directed (DME) RECLINER See Rx Instructions .Route .MEDSUPPLY Qty: 1 0RF Rx Instructions: As directed (DME) HOSPITAL BED See Rx Instructions .Route .MEDSUPPLY Qty: 1 0RF Rx Instructions: As directed albuterol sulfate 2.5 mg /3 mL (0.083 %) solution for nebulization 2.5 mg inhalation QID PRN (Reason: Shortness Of Breath Or Wheezing) acetaminophen 500 mg tablet 1,000 mg PO TID PRN (Reason: Pain) insulin glargine [Lantus Solostar U-100 Insulin] 100 unit/mL (3 mL) insulin pen 10 unit subcut DAILY@1300 prednisone 10 mg tablet 10 mg PO QAM sennosides-docusate sodium [Senna Plus] 8.6-50 mg tablet 2 tab-cap PO BEDTIME PRN (Reason: Constipation) melatonin 3 mg capsule 3 mg PO BEDTIME PRN (Reason: sleep) Qty: 30 3RF (DME) Oxygen Home Use Kit See Rx Instructions .Route Rx Instructions: As directed Discharge Orders: Discharge Order (Routine); Ordered 11/14/23 Ordered By: Joe Zambrano Diet: Advance to usual diet Activity on Discharge: As tolerated Stand Alone Forms: Patient Portal Discharge page Print Language: Wallisian Care Plan Goals: manage chronic lung disease Health Concerns: ild, asthma/copd Plan of Treatment: azithro, starting lasix, follow up with pulmonary Assessment: see above
[2023-11-14] MEDS: cefTRIAXone sodium 1 GM in 0.9 % Sodium Chloride 50 ML IV (09:21)
[2023-11-14] MEDS: mycophenolate mofetiL 250 MG CAPSULE 500 MG PO (09:22)
[2023-11-14] MEDS: Azithromycin 500 MG TABLET PO (09:22)
[2023-11-14] MEDS: Insulin Lispro 100 UNIT/ML 3 ML VIAL SUBCUT ×3 (09:22→12:28)
[2023-11-14] MEDS: Cholecalciferol (Vitamin D3) 25 MCG TABLET 50 MCG PO (09:23)
[2023-11-14] MEDS: predniSONE 10 MG TABLET PO (09:23)
[2023-11-14] MEDS: Aspirin Enteric Coated 81 MG TABLET.DR PO (09:23)
[2023-11-14] MEDS: DULoxetine HCl 60 MG CAPSULE.DR PO (09:23)
[2023-11-14 09:24] VITALS: BP 124/67
[2023-11-14] MEDS: Losartan Potassium 50 MG TABLET PO (09:24)
--- NOTE | 2023-11-14 09:30 | MHC.CM.PN ---
CM met with Patient at bedside with Burkinan translation; IMM was addressed and Patient received the original and a copy was placed on the chart. Patient lives with her and she uses a cane/walker to assist with mobility, along with home O2. Daughter/Kylee is the HCP and the PCP is Dr. Ciro Daniel. Patient has been medically cleared for dc to home today, self care.
--- NOTE | 2023-11-14 09:43 | P.F2F_ITS ---
Service Date Service Date: 11/14/23 Encounter Date of encounter: 11/14/23 Reasons for Services Signs and symptoms assessed: sob on exertion Reason for group home: medication management, medication treatment and teach disease management Homebound: Leaving the home is medically contraindicated at this time without the asist of a device and/or another person due th the listed conditions above and below. Reason homebound: shortness of breath with minimal effort Certification: Based on the above findings, I certify that this patient is confined to the home and needs intermittent group home care, physical therapy and/or speech therapy, or continues to need occupational therapy. The patient is under my care, and I have initiated the establishment of the plan of care. The patient will be followed by a physician who will periodically review the plan of care. Time Spent With Patient Time: Total time managing care of this patient today ____ minutes.
[2023-11-14 11:49] LABS: Glucose, Whole Blood 285 mg/dL (60-115)
[2023-11-14 12:00] VITALS: BP 96/55; PULSE 81; RESP 16; TEMP 36.5; O2SAT 99
== END 2023-11-14 12:54 | disposition home or self-care (01) | DRG 190 ==
LOC: HO.ED 14:59 → HO.EDOVER 15:13 → HO.IMC 11-13 14:01
PROVIDERS: Admitting Provider Internal Medicine; Emergency Provider Emergency Medicine; PCP Internal Medicine; Visit Provider Internal Medicine
DX: J44.0 Chronic obstructive pulmonary disease with (acute) lower respiratory infection (principal); I50.33 Acute on chronic diastolic (congestive) heart failure; J96.21 Acute and chronic respiratory failure with hypoxia; J18.9 Pneumonia, unspecified organism; J45.51 Severe persistent asthma with (acute) exacerbation; J44.1 Chronic obstructive pulmonary disease with (acute) exacerbation; E11.9 Type 2 diabetes mellitus without complications; I11.0 Hypertensive heart disease with heart failure; Z99.81 Dependence on supplemental oxygen; Z86.73 Personal history of transient ischemic attack (TIA), and cerebral infarction without residual deficits; Z79.52 Long term (current) use of systemic steroids; Z79.82 Long term (current) use of aspirin; Z79.84 Long term (current) use of oral hypoglycemic drugs; Z79.899 Other long term (current) drug therapy
CPT/HCPCS: 36415; 71045; 71250; 80048; 80076; 82803; 82947; 83605; 83690; 83735; 83880; 84484; 85025; 85027; 87040; 93005; 94640; 99285; J0456; J0692; J0696; J1940; J2919

== ENCOUNTER → 2023-11-12 12:24 | Outpatient (BNV) | payer OTHER, SELFPAY | PROVIDERS: Admitting Provider Internal Medicine; Emergency Provider Emergency Medicine; PCP Internal Medicine; Visit Provider Internal Medicine Cardiovascular Disease | DX: R06.09 Other forms of dyspnea (principal); R00.0 Tachycardia, unspecified | CPT/HCPCS: 93010 ==

== ENCOUNTER → 2023-11-12 15:08 | Outpatient (BNV) | payer OTHER, SELFPAY | PROVIDERS: Admitting Provider Internal Medicine; Emergency Provider Emergency Medicine; PCP Internal Medicine; Visit Provider Internal Medicine | DX: J96.21 Acute and chronic respiratory failure with hypoxia (principal); J84.9 Interstitial pulmonary disease, unspecified; I50.33 Acute on chronic diastolic (congestive) heart failure; J44.1 Chronic obstructive pulmonary disease with (acute) exacerbation; J45.50 Severe persistent asthma, uncomplicated | CPT/HCPCS: 99223; 99233; 99239; G0180 ==

== ENCOUNTER → 2023-11-12 15:08 | Outpatient (BNV) | payer OTHER, SELFPAY | PROVIDERS: Admitting Provider Internal Medicine; Emergency Provider Emergency Medicine; PCP Internal Medicine; Visit Provider Internal Medicine Pulmonary Disease | DX: J96.21 Acute and chronic respiratory failure with hypoxia (principal); J84.9 Interstitial pulmonary disease, unspecified; I50.33 Acute on chronic diastolic (congestive) heart failure | CPT/HCPCS: 99222 ==

== ENCOUNTER 2024-01-31 10:35 | Outpatient (AMB) | payer OTHER, SELFPAY ==
--- NOTE | 2024-01-31 10:36 | A.OFFPC_ITS ---
Intake Visit Reasons: 3M Follow up Allergies No Known Allergies Allergy (Verified 01/31/24 10:37) Tobacco use date assessed: 08/06/23 Fall risk assessment: No Falls in past year Last assessed Fall Risk: 01/31/24 Dental Screening Dental Screen Date: 10/19/23 HPI 3M Follow up HPI Details 83-year-old female with diabetes mellitu s hypertension hypercholesterolemia history of CVA interstitial lung disease severe on home O2 coming in for follow-up. Patient was last seen through Telehealth in 09/2023. Patient had CT scan of the chest admitted showing acute process for superimposed chronic interstitial lung disease with suspected pulmonary edema versus pneumonia and cardiomegaly. Diuresed as well as placed on steroids and antibiotic discharged on Zithromax and Lasix. on oxygen, o2 sats has been low and so using higher oxygen. O2 sats has been 75 - advised to go to ER . PFSH Medical History Hip pain, left Bilateral hip pain Respiratory tract infection Interstitial lung disease Viral pneumonia Pneumonitis Right lower quadrant abdominal pain UTI (urinary tract infection) Chest pain Mass on back H/O thrombocytosis COPD with acute exacerbation Pneumonia Weakness Constipation Opacities of both lungs present on chest x-ray Elevated WBC count Viral syndrome Asthma-COPD overlap syndrome Chronic respiratory failure Acute and chronic respiratory failure Generalized anxiety disorder Urinary incontinence CVA (cerebral vascular accident) Osteopenia Lumbar spinal stenosis Interstitial pulmonary fibrosis Insomnia Cystocele Hypertension Hypercholesterolemia Type 2 diabetes mellitus with hyperglycemia Surgical History Hx of section Social History Household Members: Spouse Housing: Apartment Do you presently have visiting nurse or other home services: No Alcohol intake: former Patient Tobacco Use Status: Never used Tobacco Tobacco use type: Cigarette e-Cigarette/Vaping Use: Never Used Second Hand Smoke Exposure: No Advance Directives Date on File: 10/15/23 service: No Current occupational status: retired Cognitive needs: Yes (Walker and Cane at home) Hearing needs: No Vision needs: Yes Questionnaire PHQ-9 Over the last 2 weeks, how often have you been bothered by any of the following problems? 1. Little interest or pleasure in doing things: several days 2. Feeling down, depressed, or hopeless: nearly every day 3. Trouble falling or staying asleep, or sleeping too much: nearly every day 4. Feeling tired or having little energy: more than half the days 5. Poor appetite or overeating: more than half the days 6. Feeling bad about yourself - or that you are a failure or have let yourself or your family down: not at all 7. Trouble concentrating on things, such as reading the newspaper or watching television: not at all 8. Moving or speaking so slowly that other people could have noticed. Or the opposite - being so fidgety or restless that you have been moving around a lot more than usual: more than half the days 9. Thoughts that you would be better off or of hurting yourself in some way: not at all Total score: 13 Depression Screening Interpretation: Positive Depression Screening Done: Yes Source: Developed by Drs. Farzad Mcqueen, Dianna Oscar, Jono Cuadra and colleagues, with an educational diallo from [employer] Thrive Questionnaire Date Thrive assessed: 11/14/23 AUDIT C Alcohol Use Questionnaire (AUDIT-C) 1. How often do you have a drink containing alcohol?: Never 3. How often do you have six or more drinks on one occasion?: Never Total Score: 0 RADHA-7 AMB Questionnaire RADHA-7 Date RADHA - 7 assessed: 10/19/23 Source: Developed by Drs. Farzad Mcqueen, Dianna Oscar, Jono Cuadra and colleagues, with an educational diallo from [employer] Physical exam (Primary Care) Tobacco/Smoking Status: Tobacco use Status Tobacco use date assessed 08/06/23 01/31/24 10:39 Patient Tobacco Use Status Never used Tobacco 01/31/24 10:39 Tobacco use type Cigarette 01/31/24 10:39 e-Cigarette/Vaping Use Never Used 01/31/24 10:39 PHQ-9: PHQ-9 Score PHQ-9: Total score 13 01/31/24 10:39 Depression Screening Interpretation: Positive Thrive Assessment: Date of Thrive Assessment Date Thrive assessed 11/14/23 01/31/24 10:39 Telehealth Telehealth Location of provider rendering services: practice address Location of patient: address on file Patient Identification confirmed using: Name, : Yes Telehealth method: video (iphone) Patient verbally consented to treatment: Yes Patient verbally consented to billing insurance company: Yes Patient informed of any privacy concerns related to visit: Yes Minutes spent on Phone/Video with Pt.: 25 Assessment and Plan Assessment & Plan (1) Hypertension: Comment: September 2014 echocardiogram normal left ventricular size ejection fraction 65-75% no wall motion abnormalities EKG 02/05/2020 normal sinus rhythm, left axis deviation nonspecific ST T wave changes June 2022 nuclear stress test no evidence of ISchemia by EKG, myocardial perfusion scan normal perfusion left ventricular ejection fraction 69% Code(s): I10 - Essential (primary) hypertension Qualifiers: Hypertension type: essential hypertension Qualified Code(s): I10 - Essential (primary) hypertension Plan: Continue to monitor blood pressure, on losartan 50 mg once a day (2) Type 2 diabetes mellitus with hyperglycemia: Code(s): E11.65 - Type 2 diabetes mellitus with hyperglycemia Qualifiers: Diabetes mellitus watermelon inspector insulin use: without watermelon inspector use Qualified Code(s): E11.65 - Type 2 diabetes mellitus with hyperglycemia Plan: Decrease the amount of carbohydrate intake, pasta, bread, rice and potatoes are all sugar and that is aside from all the sweet stuff, remember that fruits are good but they are Sweet also. Patient takes metformin 750 mg twice a day patient is on prednisone. Lantus insulin 10 units once a day and glipizide (3) Hypercholesterolemia: Code(s): E78.00 - Pure hypercholesterolemia, unspecified Plan: Avoid fried foods, chicken skin, eggs, butter margarine, pastries and meat. Be it pork or beef they have a lot of cholesterol on atorvastatin 40 mg once a day (4) Interstitial lung disease: Comment: June 2022 Code(s): J84.9 - Interstitial pulmonary disease, unspecified Plan: Patient is on oxygen, continue to follow-up with Pulmonary on inhalers albuterol. with the sats down - advsied to go to ER. discussed about hospice care but difficulty with coordination. (5) Congestive heart failure: Code(s): I50.9 - Heart failure, unspecified Plan: Continue with diuresis Orders: Orders B Type Natriuretic Peptide Today I50.9 - Heart failure, unspecified XR chest 2V Today I50.9 - Heart failure, unspecified Medications: New nystatin swish and swallow 5 mL PO TID 7 days 105 mL 0RF I50.9 - Heart failure, unspecified Coding Level of Care Code Tele Est Pt Level 4 (26366) Diagnoses Essential hypertension I10 Hypertension type: essential hypertension Type 2 diabetes mellitus with hyperglycemia, without long-term current use of insulin E11.65 Diabetes mellitus long-term insulin use: without watermelon inspector use Hypercholesterolemia E78.00 Interstitial lung disease J84.9 Congestive heart failure I50.9
== END 2024-01-31 11:40 | disposition home or self-care (01) ==
LOC: HO.HMGH 10:35
PROVIDERS: PCP Internal Medicine; Visit Provider Internal Medicine
DX: I11.0 Hypertensive heart disease with heart failure (principal); I50.9 Heart failure, unspecified; J84.9 Interstitial pulmonary disease, unspecified; E11.65 Type 2 diabetes mellitus with hyperglycemia; E78.00 Pure hypercholesterolemia, unspecified
CPT/HCPCS: 99214

== ENCOUNTER 2024-02-10 13:44 | Inpatient (IN) | payer OTHER, SELFPAY ==
[2024-02-10] VITALS (10 sets, daily range): BP systolic 117–140; BP diastolic 54–77; PULSE 87–97; RESP 18–40; TEMP 36.7–37.2; O2SAT 90–117; BMI 23.5
--- NOTE | ~2024-02-10 | XR_ITS ---
EXAMINATION: XR CHEST CLINICAL INFORMATION: Shortness of breath COMPARISON: Multiple prior studies including Chest x-ray October 13, 2023, November 12, 2023. CT chest November 13, 2023 TECHNIQUE: Frontal portable view of the chest was obtained. 2:37 PM FINDINGS: Diffuse chronic increased lung markings. Known interstitial lung disease. No focal consolidation to suggest an acute pulmonary process. Chest x-ray stable in appearance since prior exam October 13, 2023. No pleural effusion or pneumothorax. XR/XR chest 1V IMPRESSION: Chronic interstitial lung disease. No acute abnormality of chest. Electronically signed by: Rolando Lee MD 02/10/2024 03:49 PM EDT
--- NOTE | ~2024-02-10 | XR_ITS ---
EXAMINATION: XR CHEST CLINICAL INFORMATION: Pneumonia. COMPARISON: 02/10/[address] chest 11/13/2023, chest radiograph 11/12/2023, 10/13/2023. TECHNIQUE: Frontal view of the chest was obtained. FINDINGS: There is no gross pneumothorax. Lung volumes remain low. Cardiac silhouette remains enlarged. Redemonstration of diffuse, chronically increased lung markings compatible with known interstitial lung disease. No gross focal consolidation appreciated. No pleural effusion. Dextroscoliosis of the thoracic spine. XR/XR chest 1V IMPRESSION: Redemonstration of diffuse, chronically increased lung markings compatible with known interstitial lung disease. No gross focal consolidation appreciated. Electronically signed by: Bekah Dos Santos MD 02/16/2024 07:16 AM EDT
--- NOTE | 2024-02-10 14:00 | ED.GENADULT ---
HPI - General Adult General Chief complaint: General Medical Stated complaint: WEAKNESS X3 DAYS / SOB Time Seen by Provider: 02/10/24 14:00 History of Present Illness ED Provider: Blake MTZ narrative: The patient is an 83-year-old woman with a history of chronic interstitial lung disease. She also apparently has a history of congestive heart failure. She is on home oxygen. Apparently she is normally on 4 L of home oxygen. Over the last 3 days she has felt increasingly short of breath and weak. She has had some chest discomfort. She has had a sense of being hot inside although she has not had any definite fever. She has had a decrease in appetite. She has had no peripheral edema. No nausea or vomiting. She admits to a cough. Related Data Home Medications ?Medication ?Instructions ?Recorded ?Confirmed Oxygen Home Use 10/23/22 04/27/23 acetaminophen 500 mg tablet 1,000 mg PO TID PRN Pain 10/08/23 11/12/23 albuterol sulfate 2.5 mg/3 mL 2.5 mg inhalation QID PRN 10/08/23 11/12/23 (0.083 %) solution for nebulization Shortness Of Breath Or Wheezing prednisone 10 mg tablet 10 mg PO QAM 11/12/23 11/12/23 Previous Rx's ?Medication ?Instructions ?Recorded evencare G2 blood glucose moniter #1 ea 10/02/21 starter kit Medline ext cuff nitrile glove #1 ea 12/03/21 sterile pairs (medium) Medline wall mount sharps #1 ea 12/03/21 container 3 galloon red medline basic face mask #1 ea 12/03/21 O2 Gas System Home Transfill Unit #1 ea 11/23/22 ([id number]) Washable Incontinence Pads (Parking Supervisor #60 ea 07/09/23 Pad) pen needle, diabetic 32 gauge x #100 ea 08/18/2306/24 (BD Ultra-Fine Micro Pen Needle) melatonin 3 mg capsule 3 mg PO BEDTIME PRN sleep #30 caps 10/19/23 BEDSIDE COMMODE #1 ea 10/26/23 WIPES #2 ea 10/26/23 incontinence pad, liner, disp #180 ea 12/09/23 mycophenolate mofetil 500 mg tablet 500 mg PO BID 30 days #60 tabs 12/13/23 GERMICIDAL DISPOSABLE WIPES #2 ea 01/06/24 HOSPITAL BED #1 01/06/24 MEDIUM PULL UPS #90 ea 01/06/24 Mattress for hospital bed #1 01/06/24 RECLINER #1 01/06/24 Semi- Electric Hospital Bed with #1 01/06/24 Mattress and Rails ULTRA THIN PADS #30 01/06/24 ULTRASORB UNDER PADS #1 01/06/24 commode (bedside commode) #1 01/06/24 medline alcohol prep pads 1.75x3 #1 01/06/24 medlinecontour plus bladder #90 01/06/24 control pads insulin glargine 100 unit/mL (3 10 unit (0.1 mL) subcut DAILY@1300 01/14/24 mL) subcutaneous pen (Lantus #15 mL Solostar U-100 Insulin) furosemide 20 mg tablet (Lasix) 20 mg PO DAILY #20 tabs 01/21/24 nystatin 100,000 unit/mL oral 5 ml PO TID 7 days #105 mL 01/31/24 suspension aspirin 81 mg tablet,delayed 81 mg PO DAILY 90 days #90 tabs 02/04/24 release (Adult Aspirin Regimen) atorvastatin 40 mg tablet 40 mg PO QPM 90 days #90 tabs 02/04/24 cholecalciferol (vitamin D3) 50 50 mcg PO DAILY 90 days #90 caps 02/04/24 mcg (2,000 unit) capsule duloxetine 60 mg capsule,delayed 60 mg PO DAILY 90 days #90 caps 02/04/24 release gabapentin 300 mg capsule 300 mg PO BEDTIME 90 days #90 caps 02/04/24 glipizide 5 mg tablet 5 mg PO DAILY #90 tabs 02/04/24 loratadine 10 mg tablet 10 mg PO DAILY 30 days #90 tabs 02/04/24 losartan 50 mg tablet 50 mg PO DAILY 90 days #90 tabs 02/04/24 metformin 750 mg tablet,extended 750 mg PO BID 90 days #180 tabs 02/04/24 release 24 hr sennosides 8.6 mg-docusate sodium 2 tab-cap (2 x 8.6-50 mg) PO 02/04/24 50 mg tablet (Senna Plus) BEDTIME PRN Constipation #180 tabs tamsulosin 0.4 mg capsule 0.4 mg PO BEDTIME #90 caps 02/04/24 Allergies Allergy/AdvReac Type Severity Reaction Status Date / Time No Known Allergies Allergy Verified 02/10/24 14:13 Review of Systems Review of Systems: Yes all other systems are reviewed and are negative [facility] Past Medical History Medical History Hip pain, left Bilateral hip pain Respiratory tract infection Interstitial lung disease Viral pneumonia Pneumonitis Right lower quadrant abdominal pain UTI (urinary tract infection) Chest pain Mass on back H/O thrombocytosis COPD with acute exacerbation Pneumonia Weakness Constipation Opacities of both lungs present on chest x-ray Elevated WBC count Viral syndrome Asthma-COPD overlap syndrome Chronic respiratory failure Acute and chronic respiratory failure Generalized anxiety disorder Urinary incontinence CVA (cerebral vascular accident) Osteopenia Lumbar spinal stenosis Interstitial pulmonary fibrosis Insomnia Cystocele Hypertension Hypercholesterolemia Type 2 diabetes mellitus with hyperglycemia Surgical History Hx of section Social History Social History Household Members: Spouse Housing: Apartment Do you presently have visiting nurse or other home services: No Alcohol intake: former Patient Tobacco Use Status: Never used Tobacco Tobacco use type: Cigarette e-Cigarette/Vaping Use: Never Used Second Hand Smoke Exposure: No Advance Directives Date on File: 10/15/23 service: No Current occupational status: retired Cognitive needs: Yes ([employer] at home) Hearing needs: No Vision needs: Yes Physical Exam ED Vital Signs: Vital Signs - 24 hr 02/10/24 13:55 02/10/24 14:14 02/10/24 14:27 Temperature 98.0 F Pulse Rate 96 89 93 Respiratory Rate 18 28 H 21 H Blood Pressure 117/54 L 126/57 L Pulse Oximetry 117 H 100 Oxygen Delivery Method Room Air Non-Rebreather Mask Oxygen Flow Rate 15 02/10/24 15:00 Temperature Pulse Rate Respiratory Rate Blood Pressure 126/57 L Pulse Oximetry Oxygen Delivery Method Oxygen Flow Rate BMI result Body Mass Index 23.5 Const Other: The patient is a chronically ill-appearing 83-year-old who was on supplemental oxygen and looks mildly short of breath. HENMT Other: Face is symmetrical. Mucous membranes moist. Eyes Other: Pupils are round equal, conjunctivae clear, extraocular movements intact Neck Other: JVD seems to be present. The neck is otherwise unremarkable. Resp Other: Crackles throughout both lung francis. Mild increased work of breathing. Cardio Rate: tachycardic Rhythm: regular rhythm Heart sounds: S1 normal heart sound present and S2 normal heart sound present GI Other: Abdomen is soft and nontender Skin Other: Skin is pale and dry Neuro Other: The patient is a frail 83-year-old. She is awake and alert. Cranial nerves seem intact. She moves her extremities symmetrically but seems generally weak. No focal findings. Extrem Other: No peripheral edema. No calf swelling or tenderness. No asymmetry. Medications Administered Discontinued Medications Generic Name Dose Route Start Last Admin Trade Name Freq PRN Reason Stop Dose Admin Albuterol Sulfate 2.5 mg/ 0 mg 02/10/24 14:21 02/10/24 14:26 Albuterol/Ipratropium 3 ml INHALE 02/10/24 14:22 5 dose ONCE ONE Administration Furosemide 40 mg 02/10/24 14:47 02/10/24 15:00 Furosemide 40 Mg/4 Ml Vial IVPUSH 02/10/24 14:48 40 mg ONCE ONE Administration Protocol Medical Decision Making Medical Decision Making [facility] Narrative: A review of the patient's chart shows that the patient had an echo last year that showed preserved ejection fraction but diastolic function. She presents with worsening shortness of breath over 3 days. She has crackles on exam. She has obvious JVD on exam. I felt her chest x-ray looks worse than previous although the official reading does not concur. Her proBNP is much higher than previously. Her troponin is normal after 3 days of symptoms. I think the patient is having an acute episode of congestive heart failure. She was given 40 mg of IV furosemide. She will be admitted to the hospitalist service. Lab Data 02/10/24 14:32 02/10/24 14:32 Labs: Lab Results 02/10/24 02/10/24 Range/Units 14:32 14:37 WBC 11.8 H (4.8-10.8) X10*3/uL RBC 3.40 L (4.20-5.50) X10*6/uL Hgb 9.1 L (12.0-16.0) g/dl Hct 30.3 L (37.0-47.0) % MCV 89.1 (80.0-98.0) fL MCH 26.8 L (27.0-33.0) pg MCHC 30.0 L (31.0-35.0) g/dl RDW 15.8 (11.0-16.0) % Plt Count 872 H (160-400) X10*3/uL MPV 8.5 L (9.4-12.3) fL Immature Gran % (Auto) 0.4 (0.0-0.4) % Neut % (Auto) 71.3 (45-73) % Lymph % (Auto) 15.7 L (20-40) % [place] % (Auto) 4.4 (2-11) % Eos % (Auto) 7.3 H (0-4) % Baso % (Auto) 0.9 (0-2) % Lymph # (Auto) 1.9 (1.2-4.9) X10*3/uL [place] # (Auto) 0.5 (0.1-1.2) X10*3/uL Eos # (Auto) 0.9 H (0.0-0.4) X10*3/uL Baso # (Auto) 0.1 (0.0-0.2) X10*3/uL Abs Immat Gran (auto) 0.05 H (0.00-0.03) X10*3/uL Absolute Neuts (auto) 8.4 H (2.0-8.3) x10*3/uL Absolute Nucleated RBC 0.000 (0.0-0.012) X10*3/uL Nucleated RBC % (auto) 0.0 (0.0-0.2) /100WBC VBG pH 7.38 (7.32-7.43) VBG pCO2 45 mmHg VBG pO2 28 mmHg VBG HCO3 27 H (22-26) mmol/L VBG O2 Saturation 60.0 % VBG Base Excess 2.0 mmol/L Sodium 143 (135-145) mmol/L Potassium 4.0 (3.3-5.1) mmol/L Chloride 105 (96-108) mmol/L Carbon Dioxide 27 (22-29) mmol/L Anion Gap 15 (12-20) BUN 9 (9-16) mg/dL Creatinine 0.69 (0.5-1.4) mg/dL Estim Creat Clear Calc 54.2 Estimated GFR > 60 Random Glucose 141 H (60-115) mg/dL Calcium 9.5 (8.4-10.2) mg/dL Magnesium 1.5 L (1.6-2.6) mg/dL Total Bilirubin 0.8 (0.0-1.0) mg/dL Direct Bilirubin 0.3 (0.0-0.5) mg/dL AST 17 (5-31) U/L ALT 12 (0-31) U/L Alkaline Phosphatase 152 H (39-117) U/L Troponin I High Sens 14.5 D (<3.5-17.0) ng/L B-Natriuretic Peptide 1053 H (<100) pg/mL Total Protein 7.8 (6.5-8.0) g/dL Albumin 3.7 (3.5-5.0) g/dL Influenza Type A (PCR) NEGATIVE (Negative) Influenza Type B (PCR) NEGATIVE (Negative) RSV RNA Qual (PCR) NEGATIVE (Negative) SARS-CoV-2 RNA (RT-PCR) NEGATIVE (Negative) Independent Interpretation I performed an independent interpretation of an: EKG Interpretation: EKG at 12:55 shows sinus tachycardia at 110 beats per minute. No definite acute ischemic changes. No significant change from previous. Critical Care Time Critical Care Time Total Critical Care Time: 65 Attestation: The patient was critically ill with a high probability of imminent or life-threatening deterioration. ?I spent greater than 30 minutes of discontinuous time evaluating the patient, delivering critical care at the bedside, discussing evaluating data with consultants. ?Critical care time does not include time spent performing separately billable procedures or teaching. ?Time spent performing critical care with 65 minutes. Discharge Plan Discharge Clinical Impression: Congestive heart failure Patient Disposition: Admitted As Inpatient Print Language: Kyrgyz
--- NOTE | 2024-02-10 14:09 | ECG_ITS ---
Test Reason : SHORTNESS OF BREATH Blood Pressure : / mmHG Vent. Rate : 101 BPM Atrial Rate : 101 BPM P-R Int : 130 ms QRS Dur : 082 ms QT Int : 380 ms P-R-T Axes : 021 -30 -18 degrees QTc Int : 492 ms Sinus tachycardia with frequent Premature ventricular complexes Left axis deviation Low voltage QRS Cannot rule out Anterior infarct , age undetermined Abnormal ECG When compared with ECG of 12-NOV-2023 12:55, Premature ventricular complexes are now Present Inverted T waves have replaced nonspecific T wave abnormality in Inferior leads Inverted T waves have replaced nonspecific T wave abnormality in Anterior leads Referred By: Gurmeet Lozano Electronically Signed By:GIBSON CONROY
[2024-02-10] MEDS: Albuterol Sulfate 2.5 MG, Albuterol/Iprat 2.5/0.5MG 3 ML 3 ML INHALE (14:26)
[2024-02-10 14:36] LABS: MANUAL DIFF FLAG NO
[2024-02-10 14:41] LABS: Basophils Absolute Auto 0.1 X10*3/uL (0.0-0.2); Basophils Percent Auto 0.9 % (0-2); Eosinophils Absolute Auto 0.9 X10*3/uL (0.0-0.4); Eosinophils Percent Auto 7.3 % (0-4); Hematocrit 30.3 % (37.0-47.0); Hemoglobin 9.1 g/dl (12.0-16.0); Imm Gran Abs Auto 0.05 X10*3/uL (0.00-0.03); Imm Gran Pct Auto 0.4 % (0.0-0.4); Lymphocytes Absolute Auto 1.9 X10*3/uL (1.2-4.9); Lymphocytes Percent Auto 15.7 % (20-40); Mean Corpuscular Hemoglobin 26.8 pg (27.0-33.0); Mean Corpuscular Volume 89.1 fL (80.0-98.0); Mean Platelet Volume 8.5 fL (9.4-12.3); Monocytes Absolute Auto 0.5 X10*3/uL (0.1-1.2); Monocytes Percent Auto 4.4 % (2-11); Neutrophils Absolute Auto 8.4 x10*3/uL (2.0-8.3); Neutrophils Percent Auto 71.3 % (45-73); Platelet Count 872 X10*3/uL (160-400); Red Cell Distribution Width 15.8 % (11.0-16.0); White Blood Count 11.8 X10*3/uL (4.8-10.8)
[2024-02-10 14:42] LABS: VBG HCO3 27 mmol/L (22-26); VBG pCO2 45 mmHg; VBG pH 7.38 (7.32-7.43); VBG pO2 28 mmHg
[2024-02-10 14:48] LABS: Venous Blood Gas Refer to POC result
[2024-02-10 14:55] LABS: Alanine Aminotransferase 12 U/L (0-31); Albumin Level 3.7 g/dL (3.5-5.0); Alkaline Phosphatase 152 U/L (39-117); Anion Gap 15 (12-20); Aspartate Amino Transferase 17 U/L (5-31); Bilirubin Direct 0.3 mg/dL (0.0-0.5); Bilirubin Total 0.8 mg/dL (0.0-1.0); Blood Urea Nitrogen 9 mg/dL (9-16); Calcium 9.5 mg/dL (8.4-10.2); Carbon Dioxide 27 mmol/L (22-29); Chloride 105 mmol/L (96-108); Creatinine Clr Calc Pharmacy 54.2; Estimated Glomerular Filt Rate > 60; Glucose Random 141 mg/dL (60-115); Magnesium 1.5 mg/dL (1.6-2.6); Sodium 143 mmol/L (135-145); Total Protein 7.8 g/dL (6.5-8.0)
[2024-02-10 15:00] LABS: B Type Natriuretic Peptide 1053 pg/mL (<100)
[2024-02-10] MEDS: Furosemide 40 MG/4 ML VIAL IVPUSH ×2 (15:00→21:56)
[2024-02-10 15:01] LABS: Troponin-I High Sensitivity 14.5 ng/L (<3.5-17.0)
[2024-02-10 15:28] LABS: Influenza A PCR NEGATIVE (Negative); Influenza B PCR NEGATIVE (Negative); Resp Syncy Virus RNA Qual PCR NEGATIVE (Negative); SARS COV2 PCR INHOUSE NEGATIVE (Negative)
--- NOTE | 2024-02-10 15:31 | MHC.EDTECH ---
late entry: this tech took up care at 1500. RN requested to place pt on purewick, pt educated on the device and purewick was placed, pt tolerated the procedure well, also obtained an EKG r/t SOB. Pt tolerated the EKG procedure well.
--- NOTE | 2024-02-10 15:39 | PM.IMHP ---
History of Present Illness Date of Service: 02/10/24 Attending physician on admission: Nyasia Webster Chief Complaint: SOB Pt is an 83-year-old Surinamese-speaking female with a PMH significant for chronic hypoxic respiratory failure due to interstitial lung disease on 4L home O2, 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 Patient reports she has had increased difficulty breathing despite being on 4 L home NC for the past few days. Endorses subjective fever and increased mostly nonproductive cough, as well as intermittent chest pain/tightness associated with breathing and cough. Has been feeling increasingly weak and dizzy. Presents today when she was so weak this morning that she could not get out of bed or walk. Reports she ?just feel sick?. Of note, during interview and exam patient removed her OxyMask to speak and quickly began desatting into the low 70s. Once OxyMask was placed back on patient continued to desatted as low as 51%. Was temporarily placed on non-rebreather for 1-2 minutes with good response up to 100%. Was then transitioned back to OxyMask where she maintained O2 saturation >90. Denies fever, chills, nausea, vomiting. In the ED pt was tachypneic up 28, tachycardic to 97, and slightly soft BP as low as 117/54. Labs were significant for chronically elevated WBC of 0.8, stable normocytic anemia of 9.1/30.3, Mag 1.5, alk-phos 152, troponin 14.5, and BNP 1053. Tested negative for COVID, RSV, and flu. Official CXR read showed chronic interstitial lung disease with no acute abnormality of the chest, however to this examiner looks like pulmonary edema. EKG demonstrated sinus tachycardia of 101 PVC and T-wave inversions in lateral leads but no evidence of significant ST elevations or depressions. Pt was treated with furosemide 40 mg IV and DuoNebs. Pt will be admitted to the hospital for treatment and further evaluation of acute CHF exacerbation. Review of Systems Review of Systems: SOB, VEGA Generalized weakness, difficulty walking Chest tightness Nonproductive cough Dizziness Denies fever, chills, nausea, vomiting, abdominal pain PMFSH Medical History Hip pain, left Bilateral hip pain Respiratory tract infection Interstitial lung disease Viral pneumonia Pneumonitis Right lower quadrant abdominal pain UTI (urinary tract infection) Chest pain Mass on back H/O thrombocytosis COPD with acute exacerbation Pneumonia Weakness Constipation Opacities of both lungs present on chest x-ray Elevated WBC count Viral syndrome Asthma-COPD overlap syndrome Chronic respiratory failure Acute and chronic respiratory failure Generalized anxiety disorder Urinary incontinence CVA (cerebral vascular accident) Osteopenia Lumbar spinal stenosis Interstitial pulmonary fibrosis Insomnia Cystocele Hypertension Hypercholesterolemia Type 2 diabetes mellitus with hyperglycemia Surgical History Hx of section Social History Household Members: Spouse Housing: Apartment Do you presently have visiting nurse or other home services: No Alcohol intake: former Patient Tobacco Use Status: Never used Tobacco Tobacco use type: Cigarette Smoked in Last 30 Days: No e-Cigarette/Vaping Use: Never Used Second Hand Smoke Exposure: No Use of substances other than those prescribed or required for medical reasons: No Advance Directives: Yes Advance Directives on File: Yes Advance Directives Date on File: 10/15/23 Do you have a plan to hurt others: No Plan service: No Current occupational status: retired Cognitive needs: Yes ([employer] at home) Hearing needs: No Vision needs: Yes Meds Allergies Allergy/AdvReac Type Severity Reaction Status Date / Time No Known Allergies Allergy Verified 02/10/24 14:13 Home Medications ?Medication ?Instructions ?Recorded ?Confirmed ?Last Taken ?Type Oxygen Home Use 10/23/22 04/27/23 Unknown History acetaminophen 500 mg tablet 1,000 mg PO TID PRN Pain 10/08/23 11/12/23 Unknown History albuterol sulfate 2.5 mg/3 mL 2.5 mg inhalation QID PRN 10/08/23 11/12/23 Unknown History (0.083 %) solution for nebulization Shortness Of Breath Or Wheezing prednisone 10 mg tablet 10 mg PO QAM 11/12/23 11/12/23 Unknown History Physical Exam Vital Signs and Narrative: Vital Signs: Last Vital Signs Temp 98.0 F 02/10/24 13:55 Pulse 93 02/10/24 14:27 Resp 21 H 02/10/24 14:27 BP 126/57 L 02/10/24 15:00 Pulse Ox 100 02/10/24 14:14 O2 Del Method Non-Rebreather Ma sk 02/10/24 14:14 O2 Flow Rate 15 02/10/24 14:14 BMI result Body Mass Index 23.5 Constitutional: Alert, in mild respiratory distress. Mental Status: Oriented to person, place and time. Eyes: Pupils are equal, round, and reactive to light. Ear, Nose, and Throat: Oropharynx clear, mucous membranes moist. Ears and nose without deformities. Trachea midline. Poor dentition Respiratory: Diffuse bilateral crackles. Mild respiratory distress. Increased work of breathing. Cardiovascular: S1, S2 regular. No murmurs, rubs, or gallops. Positive JVD. Gastrointestinal: Abdomen soft, non-tender, non-distended. Normal bowel sounds. Neurologic: Cranial nerves II-XII are grossly intact bilaterally. No focal neurological deficits. Moves all extremities spontaneously. Skin: Warm, dry. Extremities: No edema. Psychiatric: Normal mood and affect. Results Labs 02/10/24 14:32 02/10/24 14:32 Labs: Laboratory Results - last 24 hr 02/10/24 02/10/24 14:32 14:37 MCV 89.1 MCH 26.8 L MCHC 30.0 L RDW 15.8 Plt Count 872 H MPV 8.5 L Immature Gran % (Auto) 0.4 Neut % (Auto) 71.3 Lymph % (Auto) 15.7 L [place] % (Auto) 4.4 Eos % (Auto) 7.3 H Baso % (Auto) 0.9 Lymph # (Auto) 1.9 [place] # (Auto) 0.5 Eos # (Auto) 0.9 H Baso # (Auto) 0.1 Abs Immat Gran (auto) 0.05 H Absolute Neuts (auto) 8.4 H Absolute Nucleated RBC 0.000 Nucleated RBC % (auto) 0.0 VBG pH 7.38 VBG pCO2 45 VBG pO2 28 VBG HCO3 27 H VBG O2 Saturation 60.0 VBG Base Excess 2.0 Anion Gap 15 Estim Creat Clear Calc 54.2 Estimated GFR > 60 Random Glucose 141 H Calcium 9.5 Magnesium 1.5 L Total Bilirubin 0.8 Direct Bilirubin 0.3 AST 17 ALT 12 Alkaline Phosphatase 152 H Troponin I High Sens 14.5 D B-Natriuretic Peptide 1053 H Total Protein 7.8 Albumin 3.7 Influenza Type A (PCR) NEGATIVE Influenza Type B (PCR) NEGATIVE RSV RNA Qual (PCR) NEGATIVE SARS-CoV-2 RNA (RT-PCR) NEGATIVE Assessment and Plan (1) Acute heart failure with preserved ejection fraction (HFpEF): Status: Acute Plan Pt is an 83-year-old Surinamese speaking female with a PMH significant for chronic hypoxic respiratory failure due to interstitial lung disease on 4L home O2, 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 Pt will be admitted to the hospital for treatment and further evaluation of acute CHF exacerbation. Acute on chronic hypoxemic respiratory failure in the setting of acute HFrEF decompensation Patient with increased SOB, VEGA, weakness, increased work of breathing, desatting into 50s on RA, elevated BNP Patient given IV Lasix in the ED Will treat with Lasix 40 mg IV b.i.d. Follow lyMag rosaura, I/O Daily weights, low-salt diet Echocardiogram Consider cardiology consult Wean off OxyMask as tolerated, patient on 4L NC at home Monitor on telemetry Hypomagnesemia, mild Magnesium 1.5 at time of presentation We will give Mag 2g IV Follow Mag COPD/severe persistent asthma Not in acute exacerbation Continue home inhalers, home prednisone Insulin-dependent type 2 diabetes Sliding-scale insulin, Lantus Hold metformin Continue glipizide Hx of CVA Continue aspirin and statin HTN Continue losartan DNR/DNI, verified with patient and family at bedside Attending:?Dr. Webster DVT Prophylaxis: Lovenox Pt will require a hospitalization of at least two nights for treatment of?of acute on chronic hypoxic respiratory failure in the setting of acute CHF exacerbation. Given patient's comorbidities and significant hypoxia above baseline, patient will require inpatient care for administration of IV diuretics, increased supplemental oxygen demand, and close monitoring of labs and respiratory status. Quality Stroke Does the patient have a stroke diagnosis?: No VTE Prior VTE?: No VTE Risk Level:: Medical - moderate - high VTE Device Contraindication: Treatment Not Indicated VTE Drug Contraindication: N/A - Med Ordered
--- NOTE | 2024-02-10 16:32 | PC.NURSE ---
This RN noted pt to have an O2 of 58%, PA at bedside attempting to do admission, he stated that she took her mask off and was talking, this RN put 15L NRB on patient, sat patient straight up, and provided chest PT, pt recovered to high 90s. Pt placed back on 6L oxy mask at this time
[2024-02-10 17:22] LABS: Appearance Urine Clear; Color Urine Yellow; Glucose Urine UA Negative (Negative); Leukocyte Esterase Urine Trace (Negative); Nitrite Urine Negative (Negative); Specific Gravity - Urine <= 1.005 (1.005-1.025); UMIC TRIGGER UACC YES; Urine Blood Negative (Negative); Urine Ketones Negative (Negative); Urine Protein Negative (Neg-Trace)
[2024-02-10 17:29] LABS: Bacteria Urine None Seen (None Seen); Hyaline Casts Urine 0-2 /LPF (0-2); RBC Urine 0-2 /HPF (0-2); Squamous Epithelial Cell Urine 0-2 /HPF (0-2); WBC Urine 0-5 /HPF (0-5)
[2024-02-10] MEDS: Enoxaparin Sodium 40 MG/0.4 ML SYRINGE SUBCUT (17:35)
[2024-02-10] MEDS: Magnesium Sulfate/H2O 2 GM/50 ML PIGGYBACK IV (17:35)
--- NOTE | 2024-02-10 18:35 | PHA.MEDREC ---
Addendum entered by Jyoti Benjamin RPh 02/10/24 18:51: reviewed by [facility]. Original Note: Pharmacy Consult ? Medication Reconciliation Pharmacy has completed the medication reconciliation. Confirmed medications with son Sergio at bedside who had half of a list of his moms medications and also called Daughter Kylee who is PT PCP and she was able to confirm the remaining medications. The daughter was able to confirm her moms insulin and she gives her mom 10 units @1300 daily. I also asked about Tamsulosin 0.4mg since looking in claims its been being filled the last few months and she just got a 28 day supply on 01/25 but patient daughter was not aware of that medication. The son also confirmed his mom took her medications last this morning at 0100.
--- NOTE | 2024-02-10 19:11 | PC.NURSE ---
received report from Maryjane PICHARDO, assume care of pt at this time
[2024-02-10 21:14] LABS: Glucose, Whole Blood 60 mg/dL (60-115)
[2024-02-10] MEDS: Nystatin Oral Susp 500,000 UNIT/5 ML ORAL.SUSP 500000 UNIT PO (21:58)
[2024-02-10] MEDS: Acetaminophen 325 MG TABLET 650 MG PO (21:58)
[2024-02-10] MEDS: Gabapentin 300 MG CAPSULE PO (21:58)
[2024-02-10] MEDS: Atorvastatin Calcium 40 MG TABLET PO (21:58)
[2024-02-11] VITALS (17 sets, daily range): BP systolic 119–139; BP diastolic 60–74; PULSE 80–102; RESP 12–40; TEMP 36.3–37.1; O2SAT 90–100
--- NOTE | 2024-02-11 01:58 | PC.NURSE ---
pt on CPAP and resting quietly at this time. Son at bedside,
--- NOTE | 2024-02-11 02:02 | PC.NURSE ---
late entry, around 2200 on 02/10/24, pt desat down into the 70's pt placed on NRB at 15L, pt's sats remained low, called RT and the ED MD into room, the decision was made to place pt on CPAP, pt sats went up with while on CPAP. Around 2300, pt's sats went down to 77 while on CPAP, called RT and Dr Heller went into room. Pt sats went back up, after Dr Heller, increased the O2. Rt came back and readjust the O2, pt remained in the high 90's.
[2024-02-11 05:19] LABS: Anion Gap 15 (12-20); Blood Urea Nitrogen 8 mg/dL (9-16); Carbon Dioxide 31 mmol/L (22-29); Chloride 102 mmol/L (96-108); Creatinine Clr Calc Pharmacy 59.4; Estimated Glomerular Filt Rate > 60; Glucose Random 77 mg/dL (60-115); Magnesium 1.8 mg/dL (1.6-2.6); Potassium 3.4 mmol/L (3.3-5.1); Sodium 145 mmol/L (135-145)
--- NOTE | 2024-02-11 06:39 | PC.NURSE ---
resting quietly on stretcher, conts on CPAP, no s/s of acute distress, son remains at bedside. Awaiting bed placement
--- NOTE | 2024-02-11 07:00 | CA_ITS ---
Transthoracic Echocardiogram Patient (Last, First, Middle): Georgie Wiseman, Gender: Female Date of : 1940 Age: 83 Procedure Date: 02/11/2024 Procedure Type: Transthoracic Echocardiogram Location: ER Height: 162.56 cm Weight: 62.14 kg BSA: 1.67 m2 Heart Rate: 99 bpm BP: 139 / 71 mmHg B2B Sales Representative: HEATHER Referring MD: Victorino GIRON Symptoms: Acute CHF exacerbation Study Quality: Fair ECG Rhythm: Sinus Conclusions: - Normal left ventricular size and systolic function. There is mildly increased left ventricular wall thickness. The visually estimated ejection fraction is between 55-60%. - There is a flattened septum in systole and diastole consistent with right ventricular pressure and volume overload. - Severely increased right ventricular cavity size. There is mildly decreased right ventricular systolic function. - Moderately elevated right atrial pressure. Severe pulmonary hypertension is present. 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 Findings Left Ventricle Normal left ventricular size and systolic function. There is mildly increased left ventricular wall thickness. The visually estimated ejection fraction is between 55-60%. There is no evidence of regional wall motion abnormalities. There is a flattened septum in systole and diastole consistent with right ventricular pressure and volume overload. Diastolic function is indeterminate on the basis of available data. Right Ventricle Severely increased right ventricular cavity size. There is mildly decreased right ventricular systolic function. Atria The left atrium is normal in size. The right atrium is moderately dilated. Aortic Valve Normal aortic valve structure and function. There is no aortic valve stenosis. There is no aortic valve regurgitation. Mitral Valve The mitral valve appears normal. There is trace mitral valve regurgitation. There is no mitral valve stenosis. Pulmonic Valve The pulmonic valve is normal. There is trace pulmonic valve regurgitation. Tricuspid Valve Normal tricuspid valve structure. There is mild tricuspid valve regurgitation. The right ventricular systolic pressure is 75 mmHg. Moderately elevated right atrial pressure. Severe pulmonary hypertension is present. Great Vessels All visible segments of the aorta are normal in size. The visualized portions of the pulmonary artery and branches are normal. Venous The inferior vena cava is normal in size and collapses less than 50% with inspiration. Pericardium/Pleural There is no evidence of pericardial effusion. Prior Study Comparison Changes noted compared to prior study dated: 08/19/2022. Severely dilated RV, severe pulm HTN. Measurements 2D Linear Measurements IVSd: 1.05 0.6-0.9/0.6-1.0 cm LVIDd: 4.05 3.9-5.3/4.2-5.9 cm LVIDd Index: 2.43 2.4-3.2/2.2-3.1 cm/m2 LVIDs: 2.83 2.0-3.6 cm LVPWd: 1.02 0.7-1.1 cm LA Diam: 2.50 2.7-3.8/3.0-4.0 cm LAIDs Index: 1.50 1.5-2.3 cm/m2 LV Mass: 169.30 67-162/88-224 g LV Mass Index: 101.38 43-95/49-115 g/m2 LVOT Diam: 1.90 3.0+(-)1.3 cm 2D Systolic Function EF 4C: 62.60 >55% EF 2C: 67.80 >55% EF BiP: 64.60 >55% Mitral Valve E'Lateral: 4.79 E'Medial: 4.57 Aortic Valve AoV Pk Konstantin: 1.21 AoV Mn Konstantin: 0.82 AoV VTI: 0.19 AoV Pk Grad: 6.00 Aov Mn Grad: 3.00 HAI Cont.VTI: 2.12 LVOT LVOT Pk Konstantin: 0.76 LVOT Mn Konstantin: 0.53 LVOT VTI: 0.14 LVOT Pk Grad: 2.00 LVOT Mn Grad: 1.00 LVOT Diam: 1.90 LVOT Area: 2.84 Diastolic Function E'Medial: 4.57 E' Laterial: 4.79 Right Ventricle TAPSE (mm): 20.70 TVS' Konstantin: 13.90 Tricuspid Valve TR Pk Konstantin: 3.74 TR Pk Grad: 56.00 RA Press: 8.00 RVSP: 75.00 Great Vessels Aorta Sinus of Valsalva: 3.60 2.0-3.5 cm Ao Asc: 3.10 2.1-3.4 cm Pulmonary Valve PV Pk Konstantin: 0.91 Peak PV Grad: 3.00 Updated in Other Vendor System with Status of Final Mejia Nicole MD electronically signed on 02/11/2024 7:33:28 PM with status of Final
[2024-02-11 08:00] LABS: Glucose, Whole Blood 86 mg/dL (60-115)
--- NOTE | 2024-02-11 09:14 | PC.NURSE ---
Therapy into room to work with patient, nelida stood at side of bed sated down to 70% despite being placed on non-rebreather, placed back on cpap 10 @ 36% by respiratory. Sating 98%
--- NOTE | 2024-02-11 09:17 | P.CONCA_ITS ---
History of Present Illness History of Present Illness Date of Service: 02/11/24 Requesting physician: Nyasia Webster Chief complaint: Acute HFpEF exacerbation Narrative: 83 female with known ILD on home oxygen presenting with worsening SOB and hypoxia. Clinically noted to be in CHF and was started on IV Lasix with improvement in symptoms. Still mildly overloaded. No CP. [facility] Past Medical History Medical History Hip pain, left Bilateral hip pain Respiratory tract infection Interstitial lung disease Viral pneumonia Pneumonitis Right lower quadrant abdominal pain UTI (urinary tract infection) Chest pain Mass on back H/O thrombocytosis COPD with acute exacerbation Pneumonia Weakness Constipation Opacities of both lungs present on chest x-ray Elevated WBC count Viral syndrome Asthma-COPD overlap syndrome Chronic respiratory failure Acute and chronic respiratory failure Generalized anxiety disorder Urinary incontinence CVA (cerebral vascular accident) Osteopenia Lumbar spinal stenosis Interstitial pulmonary fibrosis Insomnia Cystocele Hypertension Hypercholesterolemia Type 2 diabetes mellitus with hyperglycemia Surgical History Surgical History Hx of section Social History Social History Household Members: Significant Other Housing: Apartment Do you presently have visiting nurse or other home services: Yes Alcohol intake: former Patient Tobacco Use Status: Never used Tobacco Tobacco use type: Cigarette e-Cigarette/Vaping Use: Never Used Second Hand Smoke Exposure: No Advance Directives Date on File: 10/15/23 service: No Current occupational status: retired Cognitive needs: Yes ([employer] at home) Hearing needs: No Vision needs: Yes Meds Allergies Allergy/AdvReac Type Severity Reaction Status Date / Time No Known Allergies Allergy Verified 02/10/24 14:13 Active Medications: Current Medications Acetaminophen (Acetaminophen 325 Mg Tablet) 650 mg PO Q6H PRN PRN Reason: Pain, Mild (Pain Scale 1-3), fever or headache Last Admin: 02/10/24 21:58 Dose: 650 mg Aspirin (Aspirin Enteric Coated 81 Mg Tablet.) 81 mg PO DAILY CRISTIAN Atorvastatin Calcium (Atorvastatin Calcium 40 Mg Tablet) 40 mg PO BEDTIME CRISTIAN Last Admin: 02/10/24 21:58 Dose: 40 mg Benzonatate (Benzonatate 100 Mg Capsule) 100 mg PO TID PRN PRN Reason: Cough Calcium Carbonate (Calcium Carbonate 750 Mg Tab.Chew) 750 mg PO Q4H PRN PRN Reason: Heartburn Duloxetine HCl (Duloxetine Hcl 60 Mg Capsule.Dr) 60 mg PO DAILY [facility] Enoxaparin Sodium (Enoxaparin Sodium 40 Mg/0.4 Ml Syringe) 40 mg SUBCUT Q24H [facility] Last Admin: 02/10/24 17:35 Dose: 40 mg Furosemide (Furosemide 40 Mg/4 Ml Vial) 40 mg IVPUSH BID@0900,1800 [facility]; Protocol Last Admin: 02/10/24 21:56 Dose: 40 mg Gabapentin (Gabapentin 300 Mg Capsule) 300 mg PO BEDTIME [facility] Last Admin: 02/10/24 21:58 Dose: 300 mg Glipizide (Glipizide 5 Mg Tablet) 5 mg PO DAILY [facility] Glucose (Glucose Gel 15 Gm Gel..Gram.) 15 gm PO Q15M PRN; Protocol PRN Reason: per Hypoglycemia Standing Ord. Dextrose (D10) 250 mls @ 750 mls/hr IV Q15M PRN; Protocol PRN Reason: per Hypoglycemia Standing Ord. Insulin Glargine (Insulin Glargine,Hum.Rec.Anlog 100 Unit/Ml 10 Ml Vial) 7 unit SUBCUT BEDTIME [facility] Last Admin: 02/10/24 22:58 Dose: Not Given Insulin Human Lispro (Insulin Lispro 100 Unit/Ml 3 Ml Vial) 0 unit SUBCUT QIDACHS [facility]; Protocol Last Admin: 02/11/24 08:06 Dose: Not Given Losartan Potassium (Losartan Potassium 50 Mg Tablet) 50 mg PO DAILY [facility]; Protocol Magnesium Hydroxide (Milk Of Magnesia 30 Ml Oral.Susp) 30 ml PO DAILY PRN PRN Reason: Constipation Melatonin (Melatonin 3 Mg Tablet) 6 mg PO BEDTIME PRN PRN Reason: Insomnia Mycophenolate Mofetil (Mycophenolate Mofetil 250 Mg Capsule) 500 mg PO BID [facility] Last Admin: 02/10/24 23:06 Dose: Not Given Nystatin (Nystatin Oral Susp 500,000 Unit/5 Ml Oral.Susp) 500,000 unit PO TID [facility]; Protocol Last Admin: 02/10/24 21:58 Dose: 500,000 unit Ondansetron HCl (Ondansetron Hcl 4 Mg/2 Ml Vial) 4 mg IVPUSH Q8H PRN PRN Reason: Nausea and Vomiting Senna/Docusate Sodium (Sennosides/Docusate Sodium Tablet) 2 tab PO BEDTIME PRN PRN Reason: Constipation Sodium Chloride (0.9 % Sodium Chloride Flush 3 Ml Syringe) 3 ml IVFLUSH QSHIFT CRISTIAN Last Admin: 02/11/24 02:29 Dose: Not Given Vitamin D (Cholecalciferol (Vitamin D3) 25 Mcg Tablet) 50 mcg PO DAILY [facility] Home Medications ?Medication ?Instructions ?Recorded ?Confirmed ?Last Taken ?Type Oxygen Home Use 10/23/22 04/27/23 Unknown History acetaminophen 500 mg tablet 1,000 mg PO TID PRN Pain 10/08/23 02/10/24 02/10/24 01:00 History atorvastatin 40 mg tablet 40 mg PO BEDTIME 02/10/24 02/10/24 02/09/24 History Physical Exam 2 Vital Signs: Vital Signs: Last Vital Signs Temp 98.2 F 02/11/24 05:29 Pulse 80 02/11/24 05:29 Resp 30 H 02/11/24 05:29 BP 131/70 02/11/24 05:29 Pulse Ox 92 02/11/24 05:29 O2 Del Method CPAP 02/11/24 05:29 O2 Flow Rate 5 02/10/24 22:15 BMI result Body Mass Index 23.5 GENERAL APPEARANCE:SOB, on supplemetal oxygen NECK: no carotid bruit, + jugular venous distention. SKIN: no suspicious lesions, warm and dry. HEART: no murmurs, regular rate and rhythm. LUNGS: b/l crackles 2/3 lungs ABDOMEN: soft, nontender. EXTREMITIES: no edema. PERIPHERAL PULSES: equal. NEUROLOGIC: No gross deficits, AAO X 3 Objective Labs and Meds 02/10/24 14:32 02/11/24 04:44 Lab results: Laboratory Results - last 24 hr 02/10/24 02/10/24 02/10/24 14:32 14:37 16:48 WBC 11.8 H RBC 3.40 L Hgb 9.1 L Hct 30.3 L MCV 89.1 MCH 26.8 L MCHC 30.0 L RDW 15.8 Plt Count 872 H MPV 8.5 L Immature Gran % (Auto) 0.4 Neut % (Auto) 71.3 Lymph % (Auto) 15.7 L [place] % (Auto) 4.4 Eos % (Auto) 7.3 H Baso % (Auto) 0.9 Lymph # (Auto) 1.9 [place] # (Auto) 0.5 Eos # (Auto) 0.9 H Baso # (Auto) 0.1 Abs Immat Gran (auto) 0.05 H Absolute Neuts (auto) 8.4 H Absolute Nucleated RBC 0.000 Nucleated RBC % (auto) 0.0 VBG pH 7.38 VBG pCO2 45 VBG pO2 28 VBG HCO3 27 H VBG O2 Saturation 60.0 VBG Base Excess 2.0 Sodium 143 Potassium 4.0 Chloride 105 Carbon Dioxide 27 Anion Gap 15 BUN 9 Creatinine 0.69 Estim Creat Clear Calc 54.2 Estimated GFR > 60 POC Glucose Random Glucose 141 H Calcium 9.5 Magnesium 1.5 L Total Bilirubin 0.8 Direct Bilirubin 0.3 AST 17 ALT 12 Alkaline Phosphatase 152 H Troponin I High Sens 14.5 D B-Natriuretic Peptide 1053 H Total Protein 7.8 Albumin 3.7 Urine Color Yellow Urine Appearance Clear Urine pH 7.0 Ur Specific [place] <= 1.005 Urine Protein Negative Urine Glucose (UA) Negative Urine Ketones Negative Urine Blood Negative Urine Nitrite Negative Ur Leukocyte Esterase Trace H Urine RBC 0-2 Urine WBC 0-5 Ur Squamous Epith Cells 0-2 Urine Bacteria None Seen Hyaline Casts 0-2 Influenza Type A (PCR) NEGATIVE Influenza Type B (PCR) NEGATIVE RSV RNA Qual (PCR) NEGATIVE SARS-CoV-2 RNA (RT-PCR) NEGATIVE 02/10/24 02/11/24 02/11/24 21:09 04:44 07:56 WBC RBC Hgb Hct MCV MCH MCHC RDW Plt Count MPV Immature Gran % (Auto) Neut % (Auto) Lymph % (Auto) [place] % (Auto) Eos % (Auto) Baso % (Auto) Lymph # (Auto) [place] # (Auto) Eos # (Auto) Baso # (Auto) Abs Immat Gran (auto) Absolute Neuts (auto) Absolute Nucleated RBC Nucleated RBC % (auto) VBG pH VBG pCO2 VBG pO2 VBG HCO3 VBG O2 Saturation VBG Base Excess Sodium 145 Potassium 3.4 Chloride 102 Carbon Dioxide 31 H Anion Gap 15 BUN 8 L Creatinine 0.63 Estim Creat Clear Calc 59.4 Estimated GFR > 60 POC Glucose 60 86 Random Glucose 77 Calcium 9.0 Magnesium 1.8 Total Bilirubin Direct Bilirubin AST ALT Alkaline Phosphatase Troponin I High Sens B-Natriuretic Peptide Total Protein Albumin Urine Color Urine Appearance Urine pH Ur Specific [place] Urine Protein Urine Glucose (UA) Urine Ketones Urine Blood Urine Nitrite Ur Leukocyte Esterase Urine RBC Urine WBC Ur Squamous Epith Cells Urine Bacteria Hyaline Casts Influenza Type A (PCR) Influenza Type B (PCR) RSV RNA Qual (PCR) SARS-CoV-2 RNA (RT-PCR) Imaging Radiologist's impression: Impressions Chest X-Ray 02/10/24 14:40 IMPRESSION: Chronic interstitial lung disease. No acute abnormality of chest. Electronically signed by: Rolando Lee MD 02/10/2024 03:49 PM EDT RP Assessment and Plan (1) Acute heart failure with preserved ejection fraction (HFpEF): Status: Acute Plan Pleasant 83 female with advanced ILD presenting with worsening SOB and CHF. Diuresing. Improving and can change to PO Lasix tomorrow. Supplemental oxygen. Echo to assess LV and RV/PA pressures. Procedures Date of Service Date of Service: 02/11/24
--- NOTE | 2024-02-11 09:18 | PC.RT ---
RT called to bedside for pt low SATs. Upon arrival, pt SATs 70% on NRB. RT placed pt back on CPAP +10 36%. SATs improved to 92% and pt states feeling better.
[2024-02-11 09:37] LABS: B Type Natriuretic Peptide 849 pg/mL (<100)
--- NOTE | 2024-02-11 09:40 | MHC.CM.PN ---
Addendum entered by Radha Wolfe 02/11/24 09:47: Home O2 is through [employer]. Original Note: Patient is unavailable; CM spoke with Primary Contact/Daughter/Kylee @ [phone] and addressed IMM with her (original will be mailed certified letter to Kylee and a copy will be placed on the chart). Patient lives in an apartment with her /HCP/Michael, she uses a rollator to assist with mobility, and she receives [employer] hours/week. Home/resume said services is the goal and CM has initiated and will follow for dc planning. PCP is Dr. Ciro Daniel.
[2024-02-11 09:48] LABS: VBG Base Excess 11.8 mmol/L; VBG HCO3 36 mmol/L (22-26); VBG pCO2 49 mmHg; VBG pH 7.48 (7.32-7.43); VBG pO2 67 mmHg
[2024-02-11 09:54] LABS: Venous Blood Gas Refer to POC result
--- NOTE | 2024-02-11 10:34 | PC.NURSE ---
Patient on CPAP, shaking head when asked if she could take morning meds
--- NOTE | 2024-02-11 10:35 | PC.RT ---
RT at bedside. Trialed pt off BIPAP and placed on HFNC as documented. Pt baron well w/ SATs >88%.
[2024-02-11] MEDS: Furosemide 40 MG/4 ML VIAL IVPUSH ×2 (10:36→16:56)
--- NOTE | 2024-02-11 10:53 | PC.NURSE ---
Patient placed on high flow by respiratory, tolerating well. Ate well for breakfast
[2024-02-11] MEDS: 0.9 % Sodium Chloride Flush 3 ML SYRINGE IVFLUSH ×3 (11:16→21:48)
--- NOTE | 2024-02-11 11:21 | P.CONCC_ITS ---
History of Present Illness Data of Consult Service Date: 02/11/24 Primary Care Provider: Ciro Daniel MD [facility] Reason for consult: Hypoxia / level of care Year old lady with underlying history of chronic hypoxic respiratory failure on 4-6 L of supplemental oxygen at baseline, COPD/asthma, pulmonary fibrosis, diastolic dysfunction, diabetes mellitus admitted on 02/10/2024 with progressive dyspnea over 4 days with significantly elevated BNP from baseline and increased O2 requirements. Patient was started on empiric diuresis with some improvement in her respiratory status, however still continues to require high-flow nasal cannula to maintain normal oximetry. Her chest x-ray demonstrated combination underlying fibrosis and pulmonary edema. Review of Systems 2 Cardiovascular: Cardiovascular: Denies chest pain, Reports leg edema, Reports dyspnea, Reports dyspnea on exertion and Reports orthopnea Respiratory: Respiratory: Denies cough, Denies excessive phlegm production, Reports dyspnea, Reports dyspnea on exertion and Denies wheezing Allergic/Immunologic: Allergic/Immunologic: Denies wheezing PMFSH Past Medical History Medical History Hip pain, left Bilateral hip pain Respiratory tract infection Interstitial lung disease Viral pneumonia Pneumonitis Right lower quadrant abdominal pain UTI (urinary tract infection) Chest pain Mass on back H/O thrombocytosis COPD with acute exacerbation Pneumonia Weakness Constipation Opacities of both lungs present on chest x-ray Elevated WBC count Viral syndrome Asthma-COPD overlap syndrome Chronic respiratory failure Acute and chronic respiratory failure Generalized anxiety disorder Urinary incontinence CVA (cerebral vascular accident) Osteopenia Lumbar spinal stenosis Interstitial pulmonary fibrosis Insomnia Cystocele Hypertension Hypercholesterolemia Type 2 diabetes mellitus with hyperglycemia Surgical History Surgical History Hx of section Social History Social History Household Members: Spouse Housing: Apartment Do you presently have visiting nurse or other home services: No Alcohol intake: former Patient Tobacco Use Status: Never used Tobacco Tobacco use type: Cigarette Smoked in Last 30 Days: No e-Cigarette/Vaping Use: Never Used Second Hand Smoke Exposure: No Use of substances other than those prescribed or required for medical reasons: No Advance Directives: Yes Advance Directives on File: Yes Advance Directives Date on File: 10/15/23 Do you have a plan to hurt others: No Plan Nutrition Risks: No Nutritional Risk service: No Current occupational status: retired Cognitive needs: Yes ([employer] at home) Hearing needs: No Vision needs: Yes Meds Allergies Allergy/AdvReac Type Severity Reaction Status Date / Time No Known Allergies Allergy Verified 02/10/24 14:13 Active Medications: Current Medications Acetaminophen (Acetaminophen 325 Mg Tablet) 650 mg PO Q6H PRN PRN Reason: Pain, Mild (Pain Scale 1-3), fever or headache Last Admin: 02/10/24 21:58 Dose: 650 mg Aspirin (Aspirin Enteric Coated 81 Mg Tablet.) 81 mg PO DAILY [facility] Last Admin: 02/11/24 10:33 Dose: Not Given Atorvastatin Calcium (Atorvastatin Calcium 40 Mg Tablet) 40 mg PO BEDTIME [facility] Last Admin: 02/10/24 21:58 Dose: 40 mg Benzonatate (Benzonatate 100 Mg Capsule) 100 mg PO TID PRN PRN Reason: Cough Calcium Carbonate (Calcium Carbonate 750 Mg Tab.Chew) 750 mg PO Q4H PRN PRN Reason: Heartburn Duloxetine HCl (Duloxetine Hcl 60 Mg Capsule.) 60 mg PO DAILY [facility] Last Admin: 02/11/24 10:33 Dose: Not Given Enoxaparin Sodium (Enoxaparin Sodium 40 Mg/0.4 Ml Syringe) 40 mg SUBCUT Q24H [facility] Last Admin: 02/10/24 17:35 Dose: 40 mg Furosemide (Furosemide 40 Mg/4 Ml Vial) 40 mg IVPUSH BID@0900,1800 [facility]; Protocol Last Admin: 02/11/24 10:36 Dose: 40 mg Gabapentin (Gabapentin 300 Mg Capsule) 300 mg PO BEDTIME [facility] Last Admin: 02/10/24 21:58 Dose: 300 mg Glipizide (Glipizide 5 Mg Tablet) 5 mg PO DAILY [facility] Last Admin: 02/11/24 10:34 Dose: Not Given Glucose (Glucose Gel 15 Gm Gel..Gram.) 15 gm PO Q15M PRN; Protocol PRN Reason: per Hypoglycemia Standing Ord. Dextrose (D10) 250 mls @ 750 mls/hr IV Q15M PRN; Protocol PRN Reason: per Hypoglycemia Standing Ord. Insulin Glargine (Insulin Glargine,Hum.Rec.Anlog 100 Unit/Ml 10 Ml Vial) 7 unit SUBCUT BEDTIME [facility] Last Admin: 02/10/24 22:58 Dose: Not Given Insulin Human Lispro (Insulin Lispro 100 Unit/Ml 3 Ml Vial) 0 unit SUBCUT QIDACHS [facility]; Protocol Last Admin: 02/11/24 08:06 Dose: Not Given Losartan Potassium (Losartan Potassium 50 Mg Tablet) 50 mg PO DAILY [facility]; Protocol Last Admin: 02/11/24 10:34 Dose: Not Given Magnesium Hydroxide (Milk Of Magnesia 30 Ml Oral.Susp) 30 ml PO DAILY PRN PRN Reason: Constipation Melatonin (Melatonin 3 Mg Tablet) 6 mg PO BEDTIME PRN PRN Reason: Insomnia Mycophenolate Mofetil (Mycophenolate Mofetil 250 Mg Capsule) 500 mg PO BID [facility] Last Admin: 02/11/24 10:33 Dose: Not Given Nystatin (Nystatin Oral Susp 500,000 Unit/5 Ml Oral.Susp) 500,000 unit PO TID [facility]; Protocol Last Admin: 02/11/24 10:33 Dose: Not Given Ondansetron HCl (Ondansetron Hcl 4 Mg/2 Ml Vial) 4 mg IVPUSH Q8H PRN PRN Reason: Nausea and Vomiting Senna/Docusate Sodium (Sennosides/Docusate Sodium Tablet) 2 tab PO BEDTIME PRN PRN Reason: Constipation Sodium Chloride (0.9 % Sodium Chloride Flush 3 Ml Syringe) 3 ml IVFLUSH QSHIFT [facility] Last Admin: 02/11/24 11:16 Dose: 3 ml Vitamin D (Cholecalciferol (Vitamin D3) 25 Mcg Tablet) 50 mcg PO DAILY [facility] Last Admin: 02/11/24 10:33 Dose: Not Given Home Medications ?Medication ?Instructions ?Recorded ?Confirmed ?Last Taken ?Type Oxygen Home Use 10/23/22 04/27/23 Unknown History acetaminophen 500 mg tablet 1,000 mg PO TID PRN Pain 10/08/23 02/10/24 02/10/24 01:00 History atorvastatin 40 mg tablet 40 mg PO BEDTIME 02/10/24 02/10/24 02/09/24 History Physical Exam 2 Vital Signs: Vital Signs: Last Vital Signs Temp 98.8 F 02/11/24 11:09 Pulse 98 02/11/24 11:09 Resp 20 02/11/24 11:09 BP 136/69 02/11/24 10:36 Pulse Ox 92 02/11/24 11:09 O2 Del Method High Flow Nasal C annula 02/11/24 11:09 O2 Flow Rate 55 02/11/24 11:09 FiO2 50 02/11/24 11:09 BMI result Body Mass Index 23.5 Const: General: no acute distress, alert and awake Eyes: Sclerae: sclerae normal EOM: EOMs intact bilaterally Neck: Neck: Yes no lymphadenopathy, Yes trachea midline and Yes supple Resp: Effort & Inspection: normal respiratory effort and no respiratory distress Auscultation: crackles (Bilateral) Cardio: Rate: regular rate Rhythm: regular rhythm Heart sounds: no gallops, no murmurs and no rubs GI: Palpation (GI): Soft to palpation and Other GI palpation findings present ( Nontender) Auscultation: normal bowel sounds Extrem: General: No clubbing, No cyanosis and Yes edema (Trace bilateral) Results Labs 02/10/24 14:32 02/11/24 04:44 Labs: Short CBC 02/10/24 Range/Units 14:32 WBC 11.8 H (4.8-10.8) X10*3/uL Hgb 9.1 L (12.0-16.0) g/dl Hct 30.3 L (37.0-47.0) % Plt Count 872 H (160-400) X10*3/uL BMP 02/10/24 02/11/24 14:32 04:44 Sodium 143 145 Potassium 4.0 3.4 Chloride 105 102 Carbon Dioxide 27 31 H BUN 9 8 L Creatinine 0.69 0.63 Calcium 9.5 9.0 Liver Function 02/10/24 Range/Units 14:32 Total Bilirubin 0.8 (0.0-1.0) mg/dL Direct Bilirubin 0.3 (0.0-0.5) mg/dL AST 17 (5-31) U/L ALT 12 (0-31) U/L Alkaline Phosphatase 152 H (39-117) U/L Albumin 3.7 (3.5-5.0) g/dL Urine 02/10/24 Range/Units 16:48 Urine Color Yellow Urine Appearance Clear Urine pH 7.0 (5.0-9.0) Ur Specific [place] <= 1.005 (1.005-1.025) Urine Protein Negative (Neg-Trace) mg/dL Urine Glucose (UA) Negative (Negative) mg/dL Assessment and Plan (1) Acute and chronic respiratory failure with hypoxia: Status: Resolved (2) Acute heart failure with preserved ejection fraction (HFpEF): Status: Acute (3) Asthma-COPD overlap syndrome: Status: Acute (4) Interstitial lung disease: Status: Acute Plan Impression: 83-year-old lady with underlying chronic hypoxic respiratory failure on 4-6 L at baseline, IPF, COPD/asthma, diastolic heart failure admitted with acute on chronic hypoxic respiratory failure secondary to exacerbation of her underlying diastolic congestive heart failure with significantly elevated BNP from baseline improving with diuresis, however still requiring high-flow nasal cannula to maintain normal oximetry. Recommendations: Agree with diuresis, consider utilization of diuretic drip. Pulmonary fibrosis exacerbation last active, but would agree with empiric systemic glucocorticoids at 1 milligram/kilogram of prednisone equivalent per day IV. Continue nebulized bronchodilators. At this time patient does not require intensive care level of monitoring, please notify for re-evaluation if patient's condition changes. Continue to titrate down FiO2 as tolerated.
[2024-02-11 11:53] LABS: Glucose, Whole Blood 172 mg/dL (60-115)
[2024-02-11] MEDS: methylPREDNISolone Sod Succ 125 MG/2 ML VIAL 60 MG IVPUSH (12:45)
[2024-02-11 12:54] LABS: Glucose, Whole Blood 145 mg/dL (60-115)
[2024-02-11 16:08] LABS: Glucose, Whole Blood 211 mg/dL (60-115)
--- NOTE | 2024-02-11 16:34 | P.PNIM_ITS ---
Subjective Subjective Date of Service: 02/11/24 Interval History: chf excerebation Review of Systems hypoxia worsening this morning no cough or fever Physical Exam 2 Vital Signs: Vital Signs: Last Vital Signs Temp 97.4 F 02/11/24 16:00 Pulse 97 02/11/24 16:00 Resp 12 02/11/24 16:00 BP 128/74 02/11/24 16:00 Pulse Ox 92 02/11/24 16:00 O2 Del Method High Flow Nasal C annula 02/11/24 16:00 O2 Flow Rate 40 02/11/24 16:00 FiO2 44 02/11/24 16:00 BMI result Body Mass Index 23.5 Appearance: Alert.? Oriented X3.? cvs: rrr, [id number] , no murmur res: air entry fair ,has b/l cracles. abd: no rebound or guarding ,nt, bs present. ext pulses present , no cyanosis,1+ . neuro: axo3 , nonfocal. Objective Data Active Medications Acetaminophen (Acetaminophen 325 Mg Tablet) 650 mg PO Q6H PRN PRN Reason: Pain, Mild (Pain Scale 1-3), fever or headache Last Admin: 02/10/24 21:58 Dose: 650 mg Documented By: CATRACHO Aspirin (Aspirin Enteric Coated 81 Mg Tablet.) 81 mg PO DAILY [facility] Last Admin: 02/11/24 10:33 Dose: Not Given Documented By: TREE Non-Admin Reason: See Note Atorvastatin Calcium (Atorvastatin Calcium 40 Mg Tablet) 40 mg PO BEDTIME [facility] Last Admin: 02/10/24 21:58 Dose: 40 mg Documented By: CATRACHO Benzonatate (Benzonatate 100 Mg Capsule) 100 mg PO TID PRN PRN Reason: Cough Calcium Carbonate (Calcium Carbonate 750 Mg Tab.Chew) 750 mg PO Q4H PRN PRN Reason: Heartburn Duloxetine HCl (Duloxetine Hcl 60 Mg Capsule.) 60 mg PO DAILY [facility] Last Admin: 02/11/24 10:33 Dose: Not Given Documented By: TREE Non-Admin Reason: See Note Enoxaparin Sodium (Enoxaparin Sodium 40 Mg/0.4 Ml Syringe) 40 mg SUBCUT Q24H [facility] Last Admin: 02/10/24 17:35 Dose: 40 mg Documented By: HO.GENTILJ Furosemide (Furosemide 40 Mg/4 Ml Vial) 40 mg IVPUSH BID@0900,1800 [facility]; Protocol Last Admin: 02/11/24 10:36 Dose: 40 mg Documented By: TREE Gabapentin (Gabapentin 300 Mg Capsule) 300 mg PO BEDTIME [facility] Last Admin: 02/10/24 21:58 Dose: 300 mg Documented By: CATRACHO Glipizide (Glipizide 5 Mg Tablet) 5 mg PO DAILY [facility] Last Admin: 02/11/24 10:34 Dose: Not Given Documented By: TREE Non-Admin Reason: See Note Glucose (Glucose Gel 15 Gm Gel..Gram.) 15 gm PO Q15M PRN; Protocol PRN Reason: per Hypoglycemia Standing Ord. Dextrose (D10) 250 mls @ 750 mls/hr IV Q15M PRN; Protocol PRN Reason: per Hypoglycemia Standing Ord. Insulin Glargine (Insulin Glargine,Hum.Rec.Anlog 100 Unit/Ml 10 Ml Vial) 7 unit SUBCUT BEDTIME [facility] Last Admin: 02/10/24 22:58 Dose: Not Given Documented By: CATRACHO Non-Admin Reason: bs 60 Insulin Human Lispro (Insulin Lispro 100 Unit/Ml 3 Ml Vial) 0 unit SUBCUT QIDACHS [facility]; Protocol Last Admin: 02/11/24 12:52 Dose: Not Given Documented By: TREE Non-Admin Reason: No Insulin Coverage Losartan Potassium (Losartan Potassium 50 Mg Tablet) 50 mg PO DAILY [facility]; Protocol Last Admin: 02/11/24 10:34 Dose: Not Given Documented By: TREE Non-Admin Reason: See Note Magnesium Hydroxide (Milk Of Magnesia 30 Ml Oral.Susp) 30 ml PO DAILY PRN PRN Reason: Constipation Melatonin (Melatonin 3 Mg Tablet) 6 mg PO BEDTIME PRN PRN Reason: Insomnia Methylprednisolone Sodium Succinate (Methylprednisolone Sod Succ 125 Mg/2 Ml Vial) 60 mg IVPUSH Q24H [facility] Last Admin: 02/11/24 12:45 Dose: 60 mg Documented By: TREE Mycophenolate Mofetil (Mycophenolate Mofetil 250 Mg Capsule) 500 mg PO BID [facility] Last Admin: 02/11/24 10:33 Dose: Not Given Documented By: TREE Non-Admin Reason: See Note Nystatin (Nystatin Oral Susp 500,000 Unit/5 Ml Oral.Susp) 500,000 unit PO TID [facility]; Protocol Last Admin: 02/11/24 10:33 Dose: Not Given Documented By: TREE Non-Admin Reason: See Note Ondansetron HCl (Ondansetron Hcl 4 Mg/2 Ml Vial) 4 mg IVPUSH Q8H PRN PRN Reason: Nausea and Vomiting Senna/Docusate Sodium (Sennosides/Docusate Sodium Tablet) 2 tab PO BEDTIME PRN PRN Reason: Constipation Sodium Chloride (0.9 % Sodium Chloride Flush 3 Ml Syringe) 3 ml IVFLUSH QSHIFT [facility] Last Admin: 02/11/24 11:16 Dose: 3 ml Documented By: TREE Vitamin D (Cholecalciferol (Vitamin D3) 25 Mcg Tablet) 50 mcg PO DAILY [facility] Last Admin: 02/11/24 10:33 Dose: Not Given Documented By: TREE Non-Admin Reason: See Note Labs 02/10/24 14:32 02/11/24 04:44 Labs: Laboratory Results - last 24 hr 02/10/24 02/10/24 02/11/24 16:48 21:09 04:44 VBG pH VBG pCO2 VBG pO2 VBG HCO3 VBG O2 Saturation VBG Base Excess Anion Gap 15 Estim Creat Clear Calc 59.4 Estimated GFR > 60 POC Glucose 60 Random Glucose 77 Calcium 9.0 Magnesium 1.8 B-Natriuretic Peptide Urine Color Yellow Urine Appearance Clear Urine pH 7.0 Ur Specific [place] <= 1.005 Urine Protein Negative Urine Glucose (UA) Negative Urine Ketones Negative Urine Blood Negative Urine Nitrite Negative Ur Leukocyte Esterase Trace H Urine RBC 0-2 Urine WBC 0-5 Ur Squamous Epith Cells 0-2 Urine Bacteria None Seen Hyaline Casts 0-2 02/11/24 02/11/24 02/11/24 07:56 08:54 09:45 VBG pH 7.48 H VBG pCO2 49 VBG pO2 67 VBG HCO3 36 H VBG O2 Saturation 90.0 VBG Base Excess 11.8 Anion Gap Estim Creat Clear Calc Estimated GFR POC Glucose 86 Random Glucose Calcium Magnesium B-Natriuretic Peptide 849 H Urine Color Urine Appearance Urine pH Ur Specific [place] Urine Protein Urine Glucose (UA) Urine Ketones Urine Blood Urine Nitrite Ur Leukocyte Esterase Urine RBC Urine WBC Ur Squamous Epith Cells Urine Bacteria Hyaline Casts 08/23/24 08/23/24 08/23/24 11:48 12:50 16:05 VBG pH VBG pCO2 VBG pO2 VBG HCO3 VBG O2 Saturation VBG Base Excess Anion Gap Estim Creat Clear Calc Estimated GFR POC Glucose 172 H 145 H 211 H Random Glucose Calcium Magnesium B-Natriuretic Peptide Urine Color Urine Appearance Urine pH Ur Specific [place] Urine Protein Urine Glucose (UA) Urine Ketones Urine Blood Urine Nitrite Ur Leukocyte Esterase Urine RBC Urine WBC Ur Squamous Epith Cells Urine Bacteria Hyaline Casts Assessment and Plan (1) Acute heart failure with preserved ejection fraction (HFpEF): Status: Acute Assessment and Plan: 83-year-old Mexican speaking female with a PMH significant for chronic hypoxic respiratory failure due to interstitial lung disease on 4L home O2, 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 Pt will be admitted to the hospital for treatment and further evaluation of acute CHF exacerbation. Acute on chronic hypoxemic respiratory failure in the setting of acute HFrEF decompensation/ Pulm fibrosis excerebation Patient with increased SOB, VEGA, weakness, increased work of breathing, desatting into 50s on RA, elevated BNP Follow Mag imani, I/O , 1 liter neg Daily weights, low-salt diet Echocardiogram done /pending vbg noted d/w icu in detail-will continue Lasix 40 mg IV b.i.d., added solumedrol 60 mg iv daily, high flow. cardiology eval pending Monitor on telemetry Hypomagnesemia, mild repleted and resolved. Follow Mag COPD/severe persistent asthma Not in acute exacerbation Continue home inhalers, home prednisone Insulin-dependent type 2 diabetes Sliding-scale insulin, Lantus Hold metformin Continue glipizide Hx of CVA Continue aspirin and statin HTN Continue losartan DNR/DNI, verified with patient and family at bedside DVT Prophylaxis: Lovenox ongoing hospitalization need for treatment of?of acute on chronic hypoxic respiratory failure in the setting of acute CHF exacerbation/pulm fibrosis . Given patient's comorbidities and significant hypoxia above baseline, patient will require inpatient care for administration of IV diuretics, increased supplemental oxygen demand, and close monitoring of labs and respiratory status. Quality Stroke Does the patient have a stroke diagnosis?: No VTE Prior VTE?: No VTE Risk Level:: Medical - moderate - high VTE Device Contraindication: Treatment Not Indicated VTE Drug Contraindication: N/A - Med Ordered
[2024-02-11] MEDS: Magnesium Oxide 400 MG TABLET PO (16:55)
[2024-02-11] MEDS: Potassium Chloride ER 20 MEQ TAB.ER.PRT PO (16:55)
[2024-02-11] MEDS: Nystatin Oral Susp 500,000 UNIT/5 ML ORAL.SUSP 500000 UNIT PO ×2 (16:55→21:43)
[2024-02-11] MEDS: Enoxaparin Sodium 40 MG/0.4 ML SYRINGE SUBCUT (16:56)
[2024-02-11] MEDS: Insulin Lispro 100 UNIT/ML 3 ML VIAL SUBCUT ×2 (16:57→21:46)
[2024-02-11 20:20] LABS: Glucose, Whole Blood 253 mg/dL (60-115)
[2024-02-11] MEDS: Gabapentin 300 MG CAPSULE PO (21:42)
[2024-02-11] MEDS: Benzonatate 100 MG CAPSULE PO (21:42)
[2024-02-11] MEDS: Atorvastatin Calcium 40 MG TABLET PO (21:43)
[2024-02-11] MEDS: mycophenolate mofetiL 250 MG CAPSULE 500 MG PO (21:43)
[2024-02-11] MEDS: Insulin Glargine,Hum.rec.anlog 100 UNIT/ML 10 ML VIAL 7 UNIT SUBCUT (21:45)
[2024-02-12] VITALS (12 sets, daily range): BP systolic 102–137; BP diastolic 50–76; PULSE 78–101; RESP 16–24; TEMP 36.2–36.7; O2SAT 30–100
[2024-02-12 06:31] LABS: Anion Gap 15 (12-20); Blood Urea Nitrogen 13 mg/dL (9-16); Calcium 9.5 mg/dL (8.4-10.2); Carbon Dioxide 33 mmol/L (22-29); Chloride 97 mmol/L (96-108); Creatinine Clr Calc Pharmacy 57.5; Estimated Glomerular Filt Rate > 60; Glucose Random 135 mg/dL (60-115); Magnesium 1.9 mg/dL (1.6-2.6); Potassium 3.6 mmol/L (3.3-5.1); Sodium 141 mmol/L (135-145)
[2024-02-12 07:24] LABS: Glucose, Whole Blood 123 mg/dL (60-115)
[2024-02-12] MEDS: Lidocaine 4 % Patch ADH..PATCH 1 PATCH TRANSDERMA (09:52)
[2024-02-12] MEDS: mycophenolate mofetiL 250 MG CAPSULE 500 MG PO ×2 (09:53→20:29)
[2024-02-12] MEDS: Magnesium Oxide 400 MG TABLET PO ×2 (09:53→16:19)
[2024-02-12] MEDS: Furosemide 40 MG TABLET PO (09:53)
[2024-02-12] MEDS: DULoxetine HCl 60 MG CAPSULE.DR PO (09:53)
[2024-02-12] MEDS: glipiZIDE 5 MG TABLET PO (09:53)
[2024-02-12] MEDS: Benzonatate 100 MG CAPSULE PO (09:53)
[2024-02-12] MEDS: Aspirin Enteric Coated 81 MG TABLET.DR PO (09:54)
[2024-02-12] MEDS: Cholecalciferol (Vitamin D3) 25 MCG TABLET 50 MCG PO (09:54)
[2024-02-12] MEDS: Losartan Potassium 50 MG TABLET PO (09:54)
[2024-02-12] MEDS: Nystatin Oral Susp 500,000 UNIT/5 ML ORAL.SUSP 500000 UNIT PO ×3 (09:54→20:29)
[2024-02-12] MEDS: 0.9 % Sodium Chloride Flush 3 ML SYRINGE IVFLUSH ×3 (09:54→20:30)
--- NOTE | 2024-02-12 10:56 | PM.PNCARD ---
Subjective Subjective Date of Service: 02/12/24 Interval history: Seen examined at bedside. On high-flow oxygen. Echocardiography has shown RV dysfunction-cor pulmonale. Physical Exam Vital Signs: Last Vital Signs Temp 97.6 F 02/12/24 07:32 Pulse 80 02/12/24 07:32 Resp 18 02/12/24 07:32 BP 137/76 02/12/24 07:32 Pulse Ox 97 02/12/24 07:32 O2 Del Method High Flow Nasal Cannula 02/12/24 07:32 O2 Flow Rate 40 02/12/24 07:32 FiO2 45 02/12/24 07:32 BMI result Body Mass Index 23.5 GENERAL APPEARANCE:SOB, on supplemetal oxygen NECK: no carotid bruit, no jugular venous distention. SKIN: no suspicious lesions, warm and dry. HEART: no murmurs, regular rate and rhythm. LUNGS: b/l crackles 2/3 lungs ABDOMEN: soft, nontender. EXTREMITIES: no edema. PERIPHERAL PULSES: equal. NEUROLOGIC: No gross deficits, AAO X 3 Objective Labs and Meds 02/10/24 14:32 02/12/24 05:41 Lab results: Laboratory Results - last 24 hr 02/11/24 02/11/24 02/11/24 11:48 12:50 16:05 Hold Purple Top Sodium Potassium Chloride Carbon Dioxide Anion Gap BUN Creatinine Estim Creat Clear Calc Estimated GFR POC Glucose 172 H 145 H 211 H Random Glucose Calcium Magnesium 02/11/24 02/12/24 02/12/24 19:48 05:41 07:14 Hold Purple Top SEE NOTE Sodium 141 Potassium 3.6 Chloride 97 Carbon Dioxide 33 H Anion Gap 15 BUN 13 Creatinine 0.65 Estim Creat Clear Calc 57.5 Estimated GFR > 60 POC Glucose 253 H 123 H Random Glucose 135 H Calcium 9.5 Magnesium 1.9 Progress Note: A&P Assessment and plan (1) Acute heart failure with preserved ejection fraction (HFpEF): Status: Acute (2) Interstitial lung disease: Status: Acute Plan Pleasant 83 year female with interstitial lung disease on home oxygen presenting with worsening shortness of breath. She had elevated BNP and JVD and was diuresed with some improvement. She continues to be on high-flow oxygen. Echocardiography has shown RV dysfunction and concern is cor pulmonale due to underlying interstitial lung disease and pulmonary hypertension. Clinically appears to be euvolemic at this stage. Change to Lasix p.o. 40 mg daily. If BP stable can give spironolactone 25 mg daily along with that. I discussed with the son that she has advanced ILD which is the major reason for her oxygen dependence and shortness of breath. Sometimes with worsening of ILD steroids can be tried as 1 can see some improvement. Consider discussion with pulmonology. With RV dysfunction please avoid Cardizem and verapamil. Beta-romeo should also be used cautiously if required. Thank you for allowing me to participate in the care of your patient. Please feel free to contact me if you have any questions. Time Spent With Patient Time: Total time managing care of this patient today ____ minutes. Progress Note: Quality Stroke Does the patient have a stroke diagnosis?: No Procedures Date of Service Date of Service: 02/12/24
[2024-02-12 11:14] LABS: Glucose, Whole Blood 120 mg/dL (60-115)
--- NOTE | 2024-02-12 13:03 | HO.PM.IMPN ---
Subjective Subjective Date of Service: 02/12/24 Interval History: chf excerebation Review of Systems hypoxia worsening this morning no cough or fever Physical Exam Vital Signs: Vital Signs: Last Vital Signs Temp 98.1 F 02/12/24 12:00 Pulse 101 H 02/12/24 12:00 Resp 18 02/12/24 12:00 BP 102/50 L 02/12/24 12:00 Pulse Ox 96 02/12/24 12:00 O2 Del Method High Flow Nasal C annula 02/12/24 12:00 O2 Flow Rate 40 02/12/24 12:00 FiO2 45 02/12/24 12:00 BMI result Body Mass Index 23.5 Appearance: Alert.? Oriented X3.? cvs: rrr, [id number] , no murmur res: air entry fair ,has b/l cracles. abd: no rebound or guarding ,nt, bs present. ext pulses present , no cyanosis,1+ . neuro: axo3 , nonfocal. Objective Data Active Medications Acetaminophen (Acetaminophen 325 Mg Tablet) 650 mg PO Q6H PRN PRN Reason: Pain, Mild (Pain Scale 1-3), fever or headache Last Admin: 02/10/24 21:58 Dose: 650 mg Documented By: CATRACHO Aspirin (Aspirin Enteric Coated 81 Mg Tablet.) 81 mg PO DAILY [facility] Last Admin: 02/12/24 09:54 Dose: 81 mg Documented By: WHITLEY Atorvastatin Calcium (Atorvastatin Calcium 40 Mg Tablet) 40 mg PO BEDTIME [facility] Last Admin: 02/11/24 21:43 Dose: 40 mg Documented By: CHUCK Benzonatate (Benzonatate 100 Mg Capsule) 100 mg PO TID PRN PRN Reason: Cough Last Admin: 02/12/24 09:53 Dose: 100 mg Documented By: WHITLEY Calcium Carbonate (Calcium Carbonate 750 Mg Tab.Chew) 750 mg PO Q4H PRN PRN Reason: Heartburn Duloxetine HCl (Duloxetine Hcl 60 Mg Capsule.) 60 mg PO DAILY [facility] Last Admin: 02/12/24 09:53 Dose: 60 mg Documented By: WHITLEY Enoxaparin Sodium (Enoxaparin Sodium 40 Mg/0.4 Ml Syringe) 40 mg SUBCUT Q24H [facility] Last Admin: 08/23/24 16:56 Dose: 40 mg Documented By: WHITLEY Furosemide (Furosemide 40 Mg Tablet) 40 mg PO DAILY [facility]; Protocol Last Admin: 02/12/24 09:53 Dose: 40 mg Documented By: WHITLEY Gabapentin (Gabapentin 300 Mg Capsule) 300 mg PO BEDTIME [facility] Last Admin: 02/11/24 21:42 Dose: 300 mg Documented By: CHUCK Glipizide (Glipizide 5 Mg Tablet) 5 mg PO DAILY [facility] Last Admin: 02/12/24 09:53 Dose: 5 mg Documented By: WHITLEY Glucose (Glucose Gel 15 Gm Gel..Gram.) 15 gm PO Q15M PRN; Protocol PRN Reason: per Hypoglycemia Standing Ord. Dextrose (D10) 250 mls @ 750 mls/hr IV Q15M PRN; Protocol PRN Reason: per Hypoglycemia Standing Ord. Insulin Glargine (Insulin Glargine,Hum.Rec.Anlog 100 Unit/Ml 10 Ml Vial) 7 unit SUBCUT BEDTIME [facility] Last Admin: 02/11/24 21:45 Dose: 7 unit Documented By: CHUCK Insulin Human Lispro (Insulin Lispro 100 Unit/Ml 3 Ml Vial) 0 unit SUBCUT QIDACHS [facility]; Protocol Last Admin: 02/12/24 11:32 Dose: Not Given Documented By: WHITLEY Non-Admin Reason: No Insulin Coverage Lidocaine (Lidocaine 4 % Patch Adh..Patch) 1 patch TRANSDERMA DAILY [facility]; Protocol Last Admin: 02/12/24 09:52 Dose: 1 patch Documented By: WHITLEY Losartan Potassium (Losartan Potassium 50 Mg Tablet) 50 mg PO DAILY [facility]; Protocol Last Admin: 02/12/24 09:54 Dose: 50 mg Documented By: WHITLEY Magnesium Hydroxide (Milk Of Magnesia 30 Ml Oral.Susp) 30 ml PO DAILY PRN PRN Reason: Constipation Magnesium Oxide (Magnesium Oxide 400 Mg Tablet) 400 mg PO BIDPC [facility] Last Admin: 02/12/24 09:53 Dose: 400 mg Documented By: WHITLEY Melatonin (Melatonin 3 Mg Tablet) 6 mg PO BEDTIME PRN PRN Reason: Insomnia Methylprednisolone Sodium Succinate (Methylprednisolone Sod Succ 125 Mg/2 Ml Vial) 60 mg IVPUSH Q24H [facility] Last Admin: 02/11/24 12:45 Dose: 60 mg Documented By: TREE Mycophenolate Mofetil (Mycophenolate Mofetil 250 Mg Capsule) 500 mg PO BID [facility] Last Admin: 02/12/24 09:53 Dose: 500 mg Documented By: WHITLEY Nystatin (Nystatin Oral Susp 500,000 Unit/5 Ml Oral.Susp) 500,000 unit PO TID [facility]; Protocol Last Admin: 02/12/24 09:54 Dose: 500,000 unit Documented By: WHITLEY Ondansetron HCl (Ondansetron Hcl 4 Mg/2 Ml Vial) 4 mg IVPUSH Q8H PRN PRN Reason: Nausea and Vomiting Senna/Docusate Sodium (Sennosides/Docusate Sodium Tablet) 2 tab PO BEDTIME PRN PRN Reason: Constipation Sodium Chloride (0.9 % Sodium Chloride Flush 3 Ml Syringe) 3 ml IVFLUSH QSHIFT [facility] Last Admin: 02/12/24 09:54 Dose: 3 ml Documented By: WHITLEY Vitamin D (Cholecalciferol (Vitamin D3) 25 Mcg Tablet) 50 mcg PO DAILY [facility] Last Admin: 02/12/24 09:54 Dose: 50 mcg Documented By: WHITLEY Labs 02/10/24 14:32 02/12/24 05:41 Labs: Laboratory Results - last 24 hr 02/11/24 02/11/24 02/12/24 16:05 19:48 05:41 Hold Purple Top SEE NOTE Anion Gap 15 Estim Creat Clear Calc 57.5 Estimated GFR > 60 POC Glucose 211 H 253 H Random Glucose 135 H Calcium 9.5 Magnesium 1.9 02/12/24 02/12/24 07:14 11:05 Hold Purple Top Anion Gap Estim Creat Clear Calc Estimated GFR POC Glucose 123 H 120 H Random Glucose Calcium Magnesium Assessment and Plan (1) Acute heart failure with preserved ejection fraction (HFpEF): Status: Acute Assessment and Plan: 83-year-old Chadian speaking female with a PMH significant for chronic hypoxic respiratory failure due to interstitial lung disease on 4L home O2, 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 Pt will be admitted to the hospital for treatment and further evaluation of acute CHF exacerbation. Acute on chronic hypoxemic respiratory failure in the setting of acute HFrEF decompensation/ Pulm fibrosis excerebation Patient with increased SOB, VEGA, weakness, increased work of breathing, desatting into 50s on RA, elevated BNP Follow lytes, Mag, I/O , 1 liter neg Daily weights, low-salt diet Echocardiogram done /pending vbg noted d/w icu in detail-will continue Lasix 40 mg IV b.i.d., added solumedrol 60 mg iv daily, high flow. cardiology eval pending Monitor on telemetry Hypomagnesemia, mild repleted and resolved. Follow Mag COPD/severe persistent asthma Not in acute exacerbation Continue home inhalers, home prednisone Insulin-dependent type 2 diabetes Sliding-scale insulin, Lantus Hold metformin Continue glipizide Hx of CVA Continue aspirin and statin HTN Continue losartan DNR/DNI, verified with patient and family at bedside DVT Prophylaxis: Lovenox ongoing hospitalization need for treatment of?of acute on chronic hypoxic respiratory failure in the setting of acute CHF exacerbation/pulm fibrosis . Given patient's comorbidities and significant hypoxia above baseline, patient will require inpatient care for administration of IV diuretics, increased supplemental oxygen demand, and close monitoring of labs and respiratory status. Quality Stroke Does the patient have a stroke diagnosis?: No VTE Prior VTE?: No VTE Risk Level:: Medical - moderate - high VTE Device Contraindication: Treatment Not Indicated VTE Drug Contraindication: N/A - Med Ordered
[2024-02-12] MEDS: Milk of Magnesia 30 ML ORAL.SUSP PO (13:17)
[2024-02-12] MEDS: methylPREDNISolone Sod Succ 125 MG/2 ML VIAL 60 MG IVPUSH (13:17)
[2024-02-12 15:51] LABS: Glucose, Whole Blood 140 mg/dL (60-115)
[2024-02-12] MEDS: Enoxaparin Sodium 40 MG/0.4 ML SYRINGE SUBCUT (16:19)
[2024-02-12] MEDS: Atorvastatin Calcium 40 MG TABLET PO (20:28)
[2024-02-12] MEDS: Gabapentin 300 MG CAPSULE PO (20:28)
[2024-02-12 21:14] LABS: Glucose, Whole Blood 315 mg/dL (60-115)
[2024-02-12] MEDS: Insulin Glargine,Hum.rec.anlog 100 UNIT/ML 10 ML VIAL 7 UNIT SUBCUT (21:23)
[2024-02-12] MEDS: Insulin Lispro 100 UNIT/ML 3 ML VIAL SUBCUT (21:23)
[2024-02-13] VITALS (12 sets, daily range): BP systolic 109–130; BP diastolic 60–72; PULSE 69–90; RESP 18–20; TEMP 35.7–37.1; O2SAT 90–100
[2024-02-13 07:22] LABS: Glucose, Whole Blood 92 mg/dL (60-115)
[2024-02-13 07:39] LABS: Anion Gap 17 (12-20); Blood Urea Nitrogen 15 mg/dL (9-16); Calcium 9.7 mg/dL (8.4-10.2); Carbon Dioxide 29 mmol/L (22-29); Chloride 99 mmol/L (96-108); Creatinine Clr Calc Pharmacy 68.1; Estimated Glomerular Filt Rate > 60; Glucose Random 93 mg/dL (60-115); Magnesium 2.5 mg/dL (1.6-2.6); Potassium 3.8 mmol/L (3.3-5.1); Sodium 141 mmol/L (135-145)
[2024-02-13] MEDS: Losartan Potassium 50 MG TABLET PO (10:38)
[2024-02-13] MEDS: mycophenolate mofetiL 250 MG CAPSULE 500 MG PO ×2 (10:38→20:02)
[2024-02-13] MEDS: Cholecalciferol (Vitamin D3) 25 MCG TABLET 50 MCG PO (10:38)
[2024-02-13] MEDS: Aspirin Enteric Coated 81 MG TABLET.DR PO (10:38)
[2024-02-13] MEDS: Magnesium Oxide 400 MG TABLET PO ×2 (10:38→16:21)
[2024-02-13] MEDS: Lidocaine 4 % Patch ADH..PATCH 1 PATCH TRANSDERMA (10:39)
[2024-02-13] MEDS: DULoxetine HCl 60 MG CAPSULE.DR PO (10:39)
[2024-02-13] MEDS: glipiZIDE 5 MG TABLET PO (10:39)
[2024-02-13] MEDS: Nystatin Oral Susp 500,000 UNIT/5 ML ORAL.SUSP 500000 UNIT PO ×3 (10:39→20:02)
[2024-02-13] MEDS: Furosemide 40 MG TABLET PO (10:39)
[2024-02-13 10:44] LABS: Glucose, Whole Blood 134 mg/dL (60-115)
[2024-02-13] MEDS: 0.9 % Sodium Chloride Flush 3 ML SYRINGE IVFLUSH ×3 (10:46→20:03)
--- NOTE | 2024-02-13 12:36 | HO.PM.IMPN ---
Subjective Subjective Date of Service: 02/13/24 Interval History: acute hypoxemic respiratory failure Review of Systems sob seems somewhat improving has dry cough no fever or chills Physical Exam Vital Signs: Vital Signs: Last Vital Signs Temp 97.6 F 02/13/24 11:19 Pulse 82 02/13/24 11:19 Resp 20 02/13/24 11:19 BP 109/69 02/13/24 11:19 Pulse Ox 97 02/13/24 11:19 O2 Del Method High Flow Nasal C annula 02/13/24 11:19 O2 Flow Rate 35 02/13/24 11:19 FiO2 35 02/13/24 11:19 BMI result Body Mass Index 23.5 Appearance: Alert.? Oriented X3.? cvs: [id number], [id number] , no murmur res: air entry somewhat improving ,few scattered rales. abd: no rebound or guarding ,nt, bs present. ext pulses present , no cyanosis,1+ . neuro: axo3 , nonfocal. Objective Data Active Medications Acetaminophen (Acetaminophen 325 Mg Tablet) 650 mg PO Q6H PRN PRN Reason: Pain, Mild (Pain Scale 1-3), fever or headache Last Admin: 02/10/24 21:58 Dose: 650 mg Documented By: CATRACHO Aspirin (Aspirin Enteric Coated 81 Mg Tablet.) 81 mg PO DAILY [facility] [place] Last Admin: 02/13/24 10:38 Dose: 81 mg Documented By: JUAN ANTONIO Atorvastatin Calcium (Atorvastatin Calcium 40 Mg Tablet) 40 mg PO BEDTIME [facility] [place] Last Admin: 02/12/24 20:28 Dose: 40 mg Documented By: CHUCK Benzonatate (Benzonatate 100 Mg Capsule) 100 mg PO TID PRN PRN Reason: Cough Last Admin: 02/12/24 09:53 Dose: 100 mg Documented By: RIOSCTRUE Calcium Carbonate (Calcium Carbonate 750 Mg Tab.Chew) 750 mg PO Q4H PRN PRN Reason: Heartburn Duloxetine HCl (Duloxetine Hcl 60 Mg Capsule.) 60 mg PO DAILY [facility] [place] Last Admin: 02/13/24 10:39 Dose: 60 mg Documented By: JUAN ANTONIO Enoxaparin Sodium (Enoxaparin Sodium 40 Mg/0.4 Ml Syringe) 40 mg SUBCUT Q24H [facility] [place] Last Admin: 02/12/24 16:19 Dose: 40 mg Documented By: WHITLEY Furosemide (Furosemide 40 Mg Tablet) 40 mg PO DAILY [facility]; Protocol Last Admin: 02/13/24 10:39 Dose: 40 mg Documented By: JUAN ANTONIO Gabapentin (Gabapentin 300 Mg Capsule) 300 mg PO BEDTIME [facility] Last Admin: 02/12/24 20:28 Dose: 300 mg Documented By: CHUCK Glipizide (Glipizide 5 Mg Tablet) 5 mg PO DAILY [facility] [place] Last Admin: 02/13/24 10:39 Dose: 5 mg Documented By: JUAN ANTONIO Glucose (Glucose Gel 15 Gm Gel..Gram.) 15 gm PO Q15M PRN; Protocol PRN Reason: per Hypoglycemia Standing Ord. Dextrose (D10) 250 mls @ 750 mls/hr IV Q15M PRN; Protocol PRN Reason: per Hypoglycemia Standing Ord. Insulin Glargine (Insulin Glargine,Hum.Rec.Anlog 100 Unit/Ml 10 Ml Vial) 7 unit SUBCUT BEDTIME [facility] [place] Last Admin: 02/12/24 21:23 Dose: 7 unit Documented By: CHUCK Insulin Human Lispro (Insulin Lispro 100 Unit/Ml 3 Ml Vial) 0 unit SUBCUT QIDACHS [facility]; Protocol Last Admin: 02/13/24 11:46 Dose: Not Given Documented By: JUAN ANTONIO Non-Admin Reason: No Insulin Coverage Lidocaine (Lidocaine 4 % Patch Adh..Patch) 1 patch TRANSDERMA DAILY [facility] [place]; Protocol Last Admin: 02/13/24 10:39 Dose: 1 patch Documented By: JUAN ANTONIO Losartan Potassium (Losartan Potassium 50 Mg Tablet) 50 mg PO DAILY [facility] [place]; Protocol Last Admin: 02/13/24 10:38 Dose: 50 mg Documented By: JUAN ANTONIO Magnesium Hydroxide (Milk Of Magnesia 30 Ml Oral.Susp) 30 ml PO DAILY PRN PRN Reason: Constipation Last Admin: 02/12/24 13:17 Dose: 30 ml Documented By: WHITLEY Magnesium Oxide (Magnesium Oxide 400 Mg Tablet) 400 mg PO BIDPC [facility] [place] Last Admin: 02/13/24 10:38 Dose: 400 mg Documented By: JUAN ANTONIO Melatonin (Melatonin 3 Mg Tablet) 6 mg PO BEDTIME PRN PRN Reason: Insomnia Methylprednisolone Sodium Succinate (Methylprednisolone Sod Succ 125 Mg/2 Ml Vial) 60 mg IVPUSH Q24H [facility] [place] Last Admin: 02/12/24 13:17 Dose: 60 mg Documented By: WHITLEY Mycophenolate Mofetil (Mycophenolate Mofetil 250 Mg Capsule) 500 mg PO BID [facility] [place] Last Admin: 02/13/24 10:38 Dose: 500 mg Documented By: JUAN ANTONIO Nystatin (Nystatin Oral Susp 500,000 Unit/5 Ml Oral.Susp) 500,000 unit PO TID [facility] [place]; Protocol Last Admin: 02/13/24 10:39 Dose: 500,000 unit Documented By: JUAN ANTONIO Ondansetron HCl (Ondansetron Hcl 4 Mg/2 Ml Vial) 4 mg IVPUSH Q8H PRN PRN Reason: Nausea and Vomiting Senna/Docusate Sodium (Sennosides/Docusate Sodium Tablet) 2 tab PO BEDTIME PRN PRN Reason: Constipation Sodium Chloride (0.9 % Sodium Chloride Flush 3 Ml Syringe) 3 ml IVFLUSH QSHIFT [facility] [place] Last Admin: 02/13/24 10:46 Dose: 3 ml Documented By: JUAN ANTONIO Vitamin D (Cholecalciferol (Vitamin D3) 25 Mcg Tablet) 50 mcg PO DAILY [facility] [place] Last Admin: 02/13/24 10:38 Dose: 50 mcg Documented By: JUAN ANTONIO Labs 02/10/24 14:32 02/13/24 06:50 Labs: Laboratory Results - last 24 hr 02/12/24 02/12/24 02/13/24 15:46 20:51 06:50 Anion Gap 17 Estim Creat Clear Calc 68.1 Estimated GFR > 60 POC Glucose 140 H 315 H Random Glucose 93 Calcium 9.7 Magnesium 2.5 02/13/24 02/13/24 07:18 10:39 Anion Gap Estim Creat Clear Calc Estimated GFR POC Glucose 92 134 H Random Glucose Calcium Magnesium Assessment and Plan (1) Acute heart failure with preserved ejection fraction (HFpEF): Status: Acute Assessment and Plan: 83-year-old [place] speaking female with a PMH significant for chronic hypoxic respiratory failure due to interstitial lung disease on 4L home O2, 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 Pt will be admitted to the hospital for treatment and further evaluation of acute CHF exacerbation. Acute on chronic hypoxemic respiratory failure in the setting of acute HFrEF decompensation/ Pulm fibrosis excerebation Patient with increased SOB, VEGA, weakness, increased work of breathing, desatting into 50s on RA, elevated BNP Follow lytes, Mag, I/O , 1 liter neg Daily weights, low-salt diet vbg noted Echocardiogram : ef 55-60%,core pulmnale . plan: continue lasix switched to po 40 mg daily /spironolactone 25 mg po daily, continue solumedrol 60 mg iv daily, high flow taper to keep sats around 92%. cardiology eval -switched lasix to po,RV dysfunction please avoid Cardizem and verapamil. Beta-romeo should also be used cautiously if required. Monitor on telemetry Hypomagnesemia, mild repleted and resolved. Follow Mag COPD/severe persistent asthma Not in acute exacerbation Continue home inhalers, home prednisone Insulin-dependent type 2 diabetes Sliding-scale insulin, Lantus Hold metformin Continue glipizide Hx of CVA Continue aspirin and statin HTN Continue losartan DNR/DNI, verified with patient and family at bedside DVT Prophylaxis: Lovenox ongoing hospitalization need for treatment of?of acute on chronic hypoxic respiratory failure in the setting of acute CHF exacerbation/pulm fibrosis . Given patient's comorbidities and significant hypoxia above baseline, patient will require inpatient care for administration of IV diuretics, increased supplemental oxygen demand, and close monitoring of labs and respiratory status. Quality Stroke Does the patient have a stroke diagnosis?: No VTE Prior VTE?: No VTE Risk Level:: Medical - moderate - high VTE Device Contraindication: Treatment Not Indicated VTE Drug Contraindication: N/A - Med Ordered
[2024-02-13] MEDS: methylPREDNISolone Sod Succ 125 MG/2 ML VIAL 60 MG IVPUSH (13:00)
[2024-02-13 15:46] LABS: Glucose, Whole Blood 113 mg/dL (60-115)
[2024-02-13] MEDS: Enoxaparin Sodium 40 MG/0.4 ML SYRINGE SUBCUT (16:21)
[2024-02-13] MEDS: Gabapentin 300 MG CAPSULE PO (20:02)
[2024-02-13] MEDS: Acetaminophen 325 MG TABLET 650 MG PO (20:02)
[2024-02-13] MEDS: Melatonin 3 MG TABLET 6 MG PO (20:02)
[2024-02-13] MEDS: Benzonatate 100 MG CAPSULE PO (20:02)
[2024-02-13] MEDS: Atorvastatin Calcium 40 MG TABLET PO (20:02)
[2024-02-13 20:50] LABS: Glucose, Whole Blood 328 mg/dL (60-115)
[2024-02-13] MEDS: Insulin Glargine,Hum.rec.anlog 100 UNIT/ML 10 ML VIAL 7 UNIT SUBCUT (20:56)
[2024-02-13] MEDS: Insulin Lispro 100 UNIT/ML 3 ML VIAL SUBCUT (20:57)
[2024-02-14] VITALS (11 sets, daily range): BP systolic 109–139; BP diastolic 57–71; PULSE 68–90; RESP 18–24; TEMP 35.9–36.6; O2SAT 92–100
[2024-02-14 07:58] LABS: Glucose, Whole Blood 65 mg/dL (60-115)
[2024-02-14] MEDS: DULoxetine HCl 60 MG CAPSULE.DR PO (09:14)
[2024-02-14] MEDS: glipiZIDE 5 MG TABLET PO (09:14)
[2024-02-14] MEDS: Magnesium Oxide 400 MG TABLET PO ×2 (09:14→16:38)
[2024-02-14] MEDS: Losartan Potassium 50 MG TABLET PO (09:14)
[2024-02-14] MEDS: Nystatin Oral Susp 500,000 UNIT/5 ML ORAL.SUSP 500000 UNIT PO ×3 (09:14→21:19)
[2024-02-14] MEDS: Aspirin Enteric Coated 81 MG TABLET.DR PO (09:14)
[2024-02-14] MEDS: Cholecalciferol (Vitamin D3) 25 MCG TABLET 50 MCG PO (09:14)
[2024-02-14] MEDS: Furosemide 40 MG TABLET PO (09:15)
[2024-02-14] MEDS: Lidocaine 4 % Patch ADH..PATCH 1 PATCH TRANSDERMA (09:21)
[2024-02-14] MEDS: 0.9 % Sodium Chloride Flush 3 ML SYRINGE IVFLUSH ×3 (09:22→21:20)
[2024-02-14] MEDS: mycophenolate mofetiL 250 MG CAPSULE 500 MG PO ×2 (09:28→21:19)
--- NOTE | 2024-02-14 11:35 | MHC.CM.PN ---
Per ROUNDS discussion, Patient is not yet medically cleared for dc (IV Solu Medrol and high flow O2); PT is recommending Inpatient Pulmonary Rehab and CM will continue to follow.
[2024-02-14 11:42] LABS: Glucose, Whole Blood 127 mg/dL (60-115)
[2024-02-14] MEDS: methylPREDNISolone Sod Succ 125 MG/2 ML VIAL 60 MG IVPUSH (11:52)
--- NOTE | 2024-02-14 15:49 | HO.PM.IMPN ---
Subjective Subjective Date of Service: 02/14/24 Interval History: acute hypoxemic respiratory failure Review of Systems sob seems improving dry cough ,no fever or chills Physical Exam Vital Signs: Vital Signs: Last Vital Signs Temp 97.0 F 02/14/24 12:00 Pulse 75 02/14/24 12:00 Resp 18 02/14/24 15:17 BP 117/61 02/14/24 12:00 Pulse Ox 99 02/14/24 12:00 O2 Del Method High Flow Nasal C annula 02/14/24 12:00 O2 Flow Rate 35 02/14/24 03:15 FiO2 35 02/14/24 03:15 BMI result Body Mass Index 23.5 Appearance: Alert.? Oriented X3.? cvs: [id number], [id number] , no murmur res: air entry somewhat improving ,few scattered rales. abd: no rebound or guarding ,nt, bs present. ext pulses present , no cyanosis,1+ . neuro: axo3 , nonfocal. Objective Data Active Medications Acetaminophen (Acetaminophen 325 Mg Tablet) 650 mg PO Q6H PRN PRN Reason: Pain, Mild (Pain Scale 1-3), fever or headache Last Admin: 02/13/24 20:02 Dose: 650 mg Documented By: DANN Aspirin (Aspirin Enteric Coated 81 Mg Tablet.) 81 mg PO DAILY [facility] Last Admin: 02/14/24 09:14 Dose: 81 mg Documented By: JUAN ANTONIO Atorvastatin Calcium (Atorvastatin Calcium 40 Mg Tablet) 40 mg PO BEDTIME [facility] Last Admin: 02/13/24 20:02 Dose: 40 mg Documented By: DANN Benzonatate (Benzonatate 100 Mg Capsule) 100 mg PO TID PRN PRN Reason: Cough Last Admin: 02/13/24 20:02 Dose: 100 mg Documented By: DANN Calcium Carbonate (Calcium Carbonate 750 Mg Tab.Chew) 750 mg PO Q4H PRN PRN Reason: Heartburn Duloxetine HCl (Duloxetine Hcl 60 Mg Capsule.) 60 mg PO DAILY [facility] Last Admin: 02/14/24 09:14 Dose: 60 mg Documented By: JUAN ANTONIO Enoxaparin Sodium (Enoxaparin Sodium 40 Mg/0.4 Ml Syringe) 40 mg SUBCUT Q24H [facility] Last Admin: 02/13/24 16:21 Dose: 40 mg Documented By: JUAN ANTONIO Furosemide (Furosemide 40 Mg Tablet) 40 mg PO DAILY [facility]; Protocol Last Admin: 02/14/24 09:15 Dose: 40 mg Documented By: JUAN ANTONIO Gabapentin (Gabapentin 300 Mg Capsule) 300 mg PO BEDTIME [facility] Last Admin: 02/13/24 20:02 Dose: 300 mg Documented By: DANN Glipizide (Glipizide 5 Mg Tablet) 5 mg PO DAILY [facility] Last Admin: 02/14/24 09:14 Dose: 5 mg Documented By: JUAN ANTONIO Glucose (Glucose Gel 15 Gm Gel..Gram.) 15 gm PO Q15M PRN; Protocol PRN Reason: per Hypoglycemia Standing Ord. Dextrose (D10) 250 mls @ 750 mls/hr IV Q15M PRN; Protocol PRN Reason: per Hypoglycemia Standing Ord. Insulin Glargine (Insulin Glargine,Hum.Rec.Anlog 100 Unit/Ml 10 Ml Vial) 7 unit SUBCUT BEDTIME [facility] Last Admin: 02/13/24 20:56 Dose: 7 unit Documented By: DANN Insulin Human Lispro (Insulin Lispro 100 Unit/Ml 3 Ml Vial) 0 unit SUBCUT QIDACHS [facility]; Protocol Last Admin: 02/14/24 11:46 Dose: Not Given Documented By: JUAN ANTONIO Non-Admin Reason: No Insulin Coverage Lidocaine (Lidocaine 4 % Patch Adh..Patch) 1 patch TRANSDERMA DAILY [facility]; Protocol Last Admin: 02/14/24 09:21 Dose: 1 patch Documented By: JUAN ANTONIO Losartan Potassium (Losartan Potassium 50 Mg Tablet) 50 mg PO DAILY [facility]; Protocol Last Admin: 02/14/24 09:14 Dose: 50 mg Documented By: JUAN ANTONIO Magnesium Hydroxide (Milk Of Magnesia 30 Ml Oral.Susp) 30 ml PO DAILY PRN PRN Reason: Constipation Last Admin: 02/12/24 13:17 Dose: 30 ml Documented By: WHITLEY Magnesium Oxide (Magnesium Oxide 400 Mg Tablet) 400 mg PO BIDPC [facility] Last Admin: 02/14/24 09:14 Dose: 400 mg Documented By: JUAN ANTONIO Melatonin (Melatonin 3 Mg Tablet) 6 mg PO BEDTIME PRN PRN Reason: Insomnia Last Admin: 02/13/24 20:02 Dose: 6 mg Documented By: ANIBAL-REUBEN Methylprednisolone Sodium Succinate (Methylprednisolone Sod Succ 125 Mg/2 Ml Vial) 60 mg IVPUSH Q24H [facility] Last Admin: 02/14/24 11:52 Dose: 60 mg Documented By: JUAN ANTONIO Mycophenolate Mofetil (Mycophenolate Mofetil 250 Mg Capsule) 500 mg PO BID [facility] Last Admin: 02/14/24 09:28 Dose: 500 mg Documented By: JUAN ANTONIO Nystatin (Nystatin Oral Susp 500,000 Unit/5 Ml Oral.Susp) 500,000 unit PO TID [facility]; Protocol Last Admin: 02/14/24 15:31 Dose: 500,000 unit Documented By: JUAN ANTONIO Ondansetron HCl (Ondansetron Hcl 4 Mg/2 Ml Vial) 4 mg IVPUSH Q8H PRN PRN Reason: Nausea and Vomiting Senna/Docusate Sodium (Sennosides/Docusate Sodium Tablet) 2 tab PO BEDTIME PRN PRN Reason: Constipation Sodium Chloride (0.9 % Sodium Chloride Flush 3 Ml Syringe) 3 ml IVFLUSH QSHIFT [facility] Last Admin: 02/14/24 15:32 Dose: 3 ml Documented By: JUAN ANTONIO Vitamin D (Cholecalciferol (Vitamin D3) 25 Mcg Tablet) 50 mcg PO DAILY [facility] Last Admin: 02/14/24 09:14 Dose: 50 mcg Documented By: JUAN ANTONIO Labs 02/10/24 14:32 02/13/24 06:50 Labs: Laboratory Results - last 24 hr 02/13/24 02/14/24 02/14/24 20:42 07:45 11:38 POC Glucose 328 H 65 127 H Assessment and Plan (1) Acute heart failure with preserved ejection fraction (HFpEF): Status: Acute Assessment and Plan: 83-year-old [place]er speaking female with a PMH significant for chronic hypoxic respiratory failure due to interstitial lung disease on 4L home O2, 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 Pt will be admitted to the hospital for treatment and further evaluation of acute CHF exacerbation. Acute on chronic hypoxemic respiratory failure in the setting of acute HFrEF decompensation/ Pulm fibrosis excerebation Patient with increased SOB, VEGA, weakness, increased work of breathing, desatting into 50s on RA, elevated BNP Follow lytes, Mag, I/O , 1 liter neg Daily weights, low-salt diet vbg noted Echocardiogram : ef 55-60%,core pulmnale . plan: continue lasix switched to po 40 mg daily /spironolactone 25 mg po daily, continue solumedrol 60 mg iv daily, high flow taper to keep sats around 92%. cardiology eval -switched lasix to po,RV dysfunction please avoid Cardizem and verapamil. Beta-romeo should also be used cautiously if required. Monitor on telemetry Hypomagnesemia, mild repleted and resolved. Follow Mag COPD/severe persistent asthma Not in acute exacerbation Continue home inhalers, home prednisone Insulin-dependent type 2 diabetes Sliding-scale insulin, Lantus Hold metformin Continue glipizide Hx of CVA Continue aspirin and statin HTN Continue losartan DNR/DNI, verified with patient and family at bedside DVT Prophylaxis: Lovenox ongoing hospitalization need for treatment of?of acute on chronic hypoxic respiratory failure in the setting of acute CHF exacerbation/pulm fibrosis . Given patient's comorbidities and significant hypoxia above baseline, patient will require inpatient care for administration of IV diuretics, increased supplemental oxygen demand, and close monitoring of labs and respiratory status. Quality Stroke Does the patient have a stroke diagnosis?: No VTE Prior VTE?: No VTE Risk Level:: Medical - moderate - high VTE Device Contraindication: Treatment Not Indicated VTE Drug Contraindication: N/A - Med Ordered
[2024-02-14] MEDS: Enoxaparin Sodium 40 MG/0.4 ML SYRINGE SUBCUT (16:38)
[2024-02-14 17:17] LABS: Glucose, Whole Blood 353 mg/dL (60-115)
[2024-02-14] MEDS: Insulin Lispro 100 UNIT/ML 3 ML VIAL SUBCUT ×2 (17:25→21:19)
[2024-02-14 20:13] LABS: Glucose, Whole Blood 188 mg/dL (60-115)
[2024-02-14] MEDS: Melatonin 3 MG TABLET 6 MG PO (21:19)
[2024-02-14] MEDS: Insulin Glargine,Hum.rec.anlog 100 UNIT/ML 10 ML VIAL 7 UNIT SUBCUT (21:19)
[2024-02-14] MEDS: Gabapentin 300 MG CAPSULE PO (21:19)
[2024-02-14] MEDS: Atorvastatin Calcium 40 MG TABLET PO (21:19)
[2024-02-15] VITALS (7 sets, daily range): BP systolic 102–131; BP diastolic 56–75; PULSE 72–83; RESP 16–20; TEMP 36.1–36.4; O2SAT 96–100
[2024-02-15 07:12] LABS: Glucose, Whole Blood 105 mg/dL (60-115)
--- NOTE | 2024-02-15 08:58 | P.PNPL_ITS ---
Subjective Subjective Date of Service: 02/15/24 Interval history: The patient was seen on exam. She has been able to wean off the high-flow now to nasal cannula 4 L. her volume status has improved. She did have significant lower extremity edema and her legs were heavy. They do feel better overall. She has been on Solu-Medrol in addition to diuretics. I did review her chest x- rays in the progression from last year to now. It appears that she does have worsening airspace disease ill-defined opacities which is in this case likely related to the cardiogenic pulmonary edema superimposed on underlying pulmonary fibrosis. She did have an echocardiogram which I personally reviewed demonstrating significant hypertrophy of the left ventricle resulting in diastolic dysfunction and also severe pulmonary hypertension. We did talk about potentially considering vasodilators therapy but I am concerned with the degree cardiac hypertrophy she may indeed have worsening respiratory disease. We continue to see how she responds to therapy. Continue with diuretics. If the patient is not improving then we can consider a trial with vasodilators to see how she response to the hospital. Objective Data Labs 02/10/24 14:32 02/13/24 06:50 Labs: Laboratory Results - last 24 hr 02/14/24 02/14/24 02/14/24 11:38 17:14 20:09 POC Glucose 127 H 353 H* 188 H 02/15/24 07:04 POC Glucose 105 Review of Systems Cardiovascular: Denies chest pain, Denies leg edema, Reports dyspnea, Reports dyspnea on exertion and Reports orthopnea Respiratory: Denies cough, Denies excessive phlegm production, Reports dyspnea, Reports dyspnea on exertion and Denies wheezing Allergic/Immunologic: Denies wheezing Physical Exam 2 Vital Signs: Vital Signs: Last Vital Signs Temp 97.2 F 02/15/24 07:49 Pulse 79 02/15/24 07:49 Resp 20 02/15/24 07:49 BP 131/70 02/15/24 07:49 Pulse Ox 100 02/15/24 07:49 O2 Del Method Nasal Cannula 02/15/24 07:49 O2 Flow Rate 4 02/15/24 07:49 FiO2 45 02/14/24 19:29 BMI result Body Mass Index 23.5 Const: General: no acute distress, alert and awake Eyes: Sclerae: sclerae normal EOM: EOMs intact bilaterally Neck: Neck: Yes no lymphadenopathy, Yes trachea midline and Yes supple Resp: Effort & Inspection: normal respiratory effort and no respiratory distress Auscultation: rales diffuse Cardio: Rate: regular rate Rhythm: regular rhythm Heart sounds: no gallops, no murmurs and no rubs GI: Palpation (GI): Soft to palpation and Other GI palpation findings present ( Nontender) Auscultation: normal bowel sounds Extrem: General: No clubbing, No cyanosis and No edema (Trace bilateral) Procedures Date of Service Date of Service: 02/15/24 Assessment and Plan Assessment and plan (1) Acute heart failure with preserved ejection fraction (HFpEF): Status: Acute (2) Congestive heart failure: Status: Acute (3) Asthma-COPD overlap syndrome: Status: Acute (4) Interstitial pulmonary fibrosis: Problem details: December 2015 Status: Acute (5) Pulmonary hypertension: Problem details: severe, likely cor pulmonale Status: Acute Plan CXR now continue oxygen supplementation to keep pox >90%. Liklely will benefit from an oximizer pendant with activity diuresis as tolerated likely change to PO prednisone tomorrow consider vasodilator therapy if no improvement continue respiratory therapy Time Spent With Patient Time: Total time managing care of this patient today ____ minutes. Progress Note: Quality Stroke Does the patient have a stroke diagnosis?: No
[2024-02-15] MEDS: mycophenolate mofetiL 250 MG CAPSULE 500 MG PO ×2 (09:04→22:55)
[2024-02-15] MEDS: DULoxetine HCl 60 MG CAPSULE.DR PO (09:04)
[2024-02-15] MEDS: Losartan Potassium 50 MG TABLET PO (09:04)
[2024-02-15] MEDS: glipiZIDE 5 MG TABLET PO (09:04)
[2024-02-15] MEDS: Cholecalciferol (Vitamin D3) 25 MCG TABLET 50 MCG PO (09:04)
[2024-02-15] MEDS: Aspirin Enteric Coated 81 MG TABLET.DR PO (09:04)
[2024-02-15] MEDS: Magnesium Oxide 400 MG TABLET PO ×2 (09:05→16:06)
[2024-02-15] MEDS: Nystatin Oral Susp 500,000 UNIT/5 ML ORAL.SUSP 500000 UNIT PO ×3 (09:05→22:55)
[2024-02-15] MEDS: Lidocaine 4 % Patch ADH..PATCH 1 PATCH TRANSDERMA (09:06)
[2024-02-15] MEDS: Furosemide 40 MG TABLET PO (09:06)
[2024-02-15] MEDS: 0.9 % Sodium Chloride Flush 3 ML SYRINGE IVFLUSH ×3 (09:15→22:57)
[2024-02-15 12:09] LABS: Glucose, Whole Blood 62 mg/dL (60-115)
[2024-02-15] MEDS: methylPREDNISolone Sod Succ 125 MG/2 ML VIAL 60 MG IVPUSH (12:23)
--- NOTE | 2024-02-15 12:41 | HO.PM.IMPN ---
Subjective Subjective Date of Service: 02/15/24 Interval History: acute hypoxemic respiratory failure Review of Systems sob seems imporivng ,off high flow now she says she is still sob with minimal excersion no fevers Physical Exam Vital Signs: Vital Signs: Last Vital Signs Temp 97.6 F 02/15/24 12:00 Pulse 78 02/15/24 12:00 Resp 20 02/15/24 12:00 BP 102/56 L 02/15/24 12:00 Pulse Ox 99 02/15/24 12:00 O2 Del Method Nasal Cannula 02/15/24 12:00 O2 Flow Rate 4 02/15/24 12:00 FiO2 45 02/14/24 19:29 BMI result Body Mass Index 23.5 Appearance: Alert.? Oriented X3.? cvs: rrr, [id number] , no murmur res: air entry somewhat improving ,few scattered rales. abd: no rebound or guarding ,nt, bs present. ext pulses present , no cyanosis,1+ . neuro: axo3 , nonfocal. Objective Data Active Medications Acetaminophen (Acetaminophen 325 Mg Tablet) 650 mg PO Q6H PRN PRN Reason: Pain, Mild (Pain Scale 1-3), fever or headache Last Admin: 02/13/24 20:02 Dose: 650 mg Documented By: DANN Aspirin (Aspirin Enteric Coated 81 Mg Tablet.) 81 mg PO DAILY [facility] Last Admin: 02/15/24 09:04 Dose: 81 mg Documented By: JUAN ANTONIO Atorvastatin Calcium (Atorvastatin Calcium 40 Mg Tablet) 40 mg PO BEDTIME [facility] Last Admin: 02/14/24 21:19 Dose: 40 mg Documented By: LAFLAMC Benzonatate (Benzonatate 100 Mg Capsule) 100 mg PO TID PRN PRN Reason: Cough Last Admin: 02/13/24 20:02 Dose: 100 mg Documented By: DANN Calcium Carbonate (Calcium Carbonate 750 Mg Tab.Chew) 750 mg PO Q4H PRN PRN Reason: Heartburn Duloxetine HCl (Duloxetine Hcl 60 Mg Capsule.) 60 mg PO DAILY [facility] Last Admin: 02/15/24 09:04 Dose: 60 mg Documented By: JUAN ANTONIO Enoxaparin Sodium (Enoxaparin Sodium 40 Mg/0.4 Ml Syringe) 40 mg SUBCUT Q24H [facility] Last Admin: 02/14/24 16:38 Dose: 40 mg Documented By: JUAN ANTONIO Furosemide (Furosemide 40 Mg Tablet) 40 mg PO DAILY [facility]; Protocol Last Admin: 02/15/24 09:06 Dose: 40 mg Documented By: JUAN ANTONIO Gabapentin (Gabapentin 300 Mg Capsule) 300 mg PO BEDTIME [facility] Last Admin: 02/14/24 21:19 Dose: 300 mg Documented By: MANJU Glipizide (Glipizide 5 Mg Tablet) 5 mg PO DAILY [facility] Last Admin: 02/15/24 09:04 Dose: 5 mg Documented By: JUAN ANTONIO Glucose (Glucose Gel 15 Gm Gel..Gram.) 15 gm PO Q15M PRN; Protocol PRN Reason: per Hypoglycemia Standing Ord. Dextrose (D10) 250 mls @ 750 mls/hr IV Q15M PRN; Protocol PRN Reason: per Hypoglycemia Standing Ord. Insulin Glargine (Insulin Glargine,Hum.Rec.Anlog 100 Unit/Ml 10 Ml Vial) 7 unit SUBCUT BEDTIME [facility] Last Admin: 02/14/24 21:19 Dose: 7 unit Documented By: MANJU Insulin Human Lispro (Insulin Lispro 100 Unit/Ml 3 Ml Vial) 0 unit SUBCUT QIDACHS [facility]; Protocol Last Admin: 02/15/24 12:10 Dose: Not Given Documented By: JUAN ANTONIO Non-Admin Reason: No Insulin Coverage Lidocaine (Lidocaine 4 % Patch Adh..Patch) 1 patch TRANSDERMA DAILY [facility]; Protocol Last Admin: 02/15/24 09:06 Dose: 1 patch Documented By: JUAN ANTONIO Losartan Potassium (Losartan Potassium 50 Mg Tablet) 50 mg PO DAILY [facility]; Protocol Last Admin: 02/15/24 09:04 Dose: 50 mg Documented By: JUAN ANTONIO Magnesium Hydroxide (Milk Of Magnesia 30 Ml Oral.Susp) 30 ml PO DAILY PRN PRN Reason: Constipation Last Admin: 02/12/24 13:17 Dose: 30 ml Documented By: RIOSCEL Magnesium Oxide (Magnesium Oxide 400 Mg Tablet) 400 mg PO BIDPC [facility] Last Admin: 02/15/24 09:05 Dose: 400 mg Documented By: JUAN ANTONIO Melatonin (Melatonin 3 Mg Tablet) 6 mg PO BEDTIME PRN PRN Reason: Insomnia Last Admin: 02/14/24 21:19 Dose: 6 mg Documented By: MANJU Methylprednisolone Sodium Succinate (Methylprednisolone Sod Succ 125 Mg/2 Ml Vial) 60 mg IVPUSH Q24H [facility] Last Admin: 02/15/24 12:23 Dose: 60 mg Documented By: JUAN ANTONIO Mycophenolate Mofetil (Mycophenolate Mofetil 250 Mg Capsule) 500 mg PO BID [facility] Last Admin: 02/15/24 09:04 Dose: 500 mg Documented By: JUAN ANTONIO Nystatin (Nystatin Oral Susp 500,000 Unit/5 Ml Oral.Susp) 500,000 unit PO TID [facility]; Protocol Last Admin: 02/15/24 09:05 Dose: 500,000 unit Documented By: JUAN ANTONIO Ondansetron HCl (Ondansetron Hcl 4 Mg/2 Ml Vial) 4 mg IVPUSH Q8H PRN PRN Reason: Nausea and Vomiting Senna/Docusate Sodium (Sennosides/Docusate Sodium Tablet) 2 tab PO BEDTIME PRN PRN Reason: Constipation Sodium Chloride (0.9 % Sodium Chloride Flush 3 Ml Syringe) 3 ml IVFLUSH QSHIFT [facility] Last Admin: 02/15/24 09:15 Dose: 3 ml Documented By: JUAN ANTONIO Vitamin D (Cholecalciferol (Vitamin D3) 25 Mcg Tablet) 50 mcg PO DAILY [facility] Last Admin: 02/15/24 09:04 Dose: 50 mcg Documented By: JUAN ANTONIO Labs 02/10/24 14:32 02/13/24 06:50 Labs: Laboratory Results - last 24 hr 02/14/24 02/14/24 02/15/24 17:14 20:09 07:04 POC Glucose 353 H* 188 H 105 02/15/24 12:00 POC Glucose 62 Assessment and Plan (1) Acute heart failure with preserved ejection fraction (HFpEF): Status: Acute Assessment and Plan: 83-year-old Tajik speaking female with a PMH significant for chronic hypoxic respiratory failure due to interstitial lung disease on 4L home O2, 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 Pt will be admitted to the hospital for treatment and further evaluation of acute CHF exacerbation. Acute on chronic hypoxemic respiratory failure in the setting of acute HFrEF decompensation/ Pulm fibrosis excerebation Patient with increased SOB, VEGA, weakness, increased work of breathing, desatting into 50s on RA, elevated BNP Follow imani, , I/O , 1 liter neg Daily weights, low-salt diet vbg noted Echocardiogram : ef 55-60%,core pulmnale . plan: continue lasix switched to po 40 mg daily /spironolactone 25 mg po daily, continue solumedrol 60 mg iv daily, high flow taper to keep sats around 92%. cardiology eval -switched lasix to po,RV dysfunction please avoid Cardizem and verapamil. Beta-romeo should also be used cautiously if required. seen by pulm-continue iv steriods for today Monitor on telemetry Hypomagnesemia, mild repleted and resolved. Follow Mag COPD/severe persistent asthma Not in acute exacerbation Continue home inhalers, home prednisone Insulin-dependent type 2 diabetes Sliding-scale insulin, Lantus Hold metformin Continue glipizide Hx of CVA Continue aspirin and statin HTN Continue losartan DNR/DNI, verified with patient and family at bedside DVT Prophylaxis: Lovenox ongoing hospitalization need for treatment of?of acute on chronic hypoxic respiratory failure in the setting of acute CHF exacerbation/pulm fibrosis -need iv steriods ,oxygen .moniter close respiratory status. Quality Stroke Does the patient have a stroke diagnosis?: No VTE Prior VTE?: No VTE Risk Level:: Medical - moderate - high VTE Device Contraindication: Treatment Not Indicated VTE Drug Contraindication: N/A - Med Ordered
[2024-02-15] MEDS: Enoxaparin Sodium 40 MG/0.4 ML SYRINGE SUBCUT (16:06)
[2024-02-15 16:21] LABS: Glucose, Whole Blood 254 mg/dL (60-115)
[2024-02-15] MEDS: Insulin Lispro 100 UNIT/ML 3 ML VIAL SUBCUT ×2 (17:02→22:56)
[2024-02-15 20:40] LABS: Glucose, Whole Blood 325 mg/dL (60-115)
[2024-02-15] MEDS: Sennosides/Docusate Sodium TABLET 2 TAB PO (22:54)
[2024-02-15] MEDS: Gabapentin 300 MG CAPSULE PO (22:56)
[2024-02-15] MEDS: Insulin Glargine,Hum.rec.anlog 100 UNIT/ML 10 ML VIAL 7 UNIT SUBCUT (22:56)
[2024-02-15] MEDS: Atorvastatin Calcium 40 MG TABLET PO (22:57)
[2024-02-16 04:00] VITALS: BP 133/75; PULSE 85; RESP 20; TEMP 36.3; O2SAT 100
[2024-02-16 07:30] VITALS: BP 133/76; PULSE 73; RESP 20; TEMP 36.6; O2SAT 100
[2024-02-16 07:56] LABS: Glucose, Whole Blood 104 mg/dL (60-115)
--- NOTE | 2024-02-16 08:40 | PM.PNPUL ---
Subjective Subjective Date of Service: 02/16/24 Interval history: The patient was seen some. She did not sleep well last night. She is complaining of headache and just not feeling well. More respiratory status the patient continues to do better. She is on 4 L nasal cannula oxygen. I did review her chest x-ray. There significant improvement the hazy opacities. She does have underlying chronic interstitial lung disease however. Seems like she responded well to the diuresis. She does have severe pulmonary hypertension and a component of cor pulmonology at this time. Objective Data Labs 02/10/24 14:32 02/13/24 06:50 Labs: Laboratory Results - last 24 hr 02/15/24 02/15/24 02/15/24 12:00 16:15 20:22 POC Glucose 62 254 H 325 H 02/16/24 07:34 POC Glucose 104 Review of Systems Constitutional: Reports headache(s) and Reports malaise Reports headache(s) and Reports neck pain Cardiovascular: Denies chest pain, Denies leg edema, Reports dyspnea, Reports dyspnea on exertion and Reports orthopnea Respiratory: Denies cough, Denies excessive phlegm production, Reports dyspnea, Reports dyspnea on exertion and Denies wheezing Gastrointestinal: Denies nausea Musculoskeletal: Reports neck pain Reports headache(s) Hematologic/Lymphatic: Reports no additional hematologic/lymphatic complaints Allergic/Immunologic: Denies wheezing Physical Exam Vital Signs: Vital Signs: Last Vital Signs Temp 97.8 F 02/16/24 07:30 Pulse 73 02/16/24 07:30 Resp 20 02/16/24 07:30 BP 133/76 02/16/24 07:30 Pulse Ox 100 02/16/24 07:30 O2 Del Method Humidified O2 02/16/24 07:30 O2 Flow Rate 4 02/16/24 07:30 FiO2 45 02/14/24 19:29 BMI result Body Mass Index 23.5 Const: General: no acute distress and tired appearing Eyes: Sclerae: sclerae normal EOM: EOMs intact bilaterally Neck: Neck: Yes no lymphadenopathy, Yes trachea midline and Yes supple Resp: Effort & Inspection: normal respiratory effort and no respiratory distress Auscultation: rales diffuse Cardio: Rate: regular rate Rhythm: regular rhythm Heart sounds: no gallops, no murmurs and no rubs GI: Palpation (GI): Soft to palpation and Other GI palpation findings present ( Nontender) Auscultation: normal bowel sounds Extrem: General: No clubbing, No cyanosis and No edema (Trace bilateral) Procedures Date of Service Date of Service: 02/16/24 Assessment and Plan Assessment and plan (1) Acute heart failure with preserved ejection fraction (HFpEF): Status: Acute (2) Congestive heart failure: Status: Acute (3) Asthma-COPD overlap syndrome: Status: Acute (4) Interstitial pulmonary fibrosis: Problem details: December 2015 Status: Acute (5) Pulmonary hypertension: Problem details: severe, likely cor pulmonale Status: Acute Plan continue oxygen supplementation to keep pox >90%. Connorlely will benefit from an oximizer pendant with activity diuresis as tolerated change to PO prednisone today continue respiratory therapy May benefir from inpt rehab Time Spent With Patient Time: Total time managing care of this patient today ____ minutes. Progress Note: Quality Stroke Does the patient have a stroke diagnosis?: No
[2024-02-16] MEDS: predniSONE 20 MG TABLET 40 MG PO (09:12)
[2024-02-16] MEDS: Nystatin Oral Susp 500,000 UNIT/5 ML ORAL.SUSP 500000 UNIT PO ×3 (09:12→21:34)
[2024-02-16] MEDS: Furosemide 40 MG TABLET PO (09:12)
[2024-02-16] MEDS: Losartan Potassium 50 MG TABLET PO (09:12)
[2024-02-16] MEDS: Magnesium Oxide 400 MG TABLET PO ×2 (09:13→16:48)
[2024-02-16] MEDS: DULoxetine HCl 60 MG CAPSULE.DR PO (09:13)
[2024-02-16] MEDS: Cholecalciferol (Vitamin D3) 25 MCG TABLET 50 MCG PO (09:13)
[2024-02-16] MEDS: Acetaminophen 325 MG TABLET 650 MG PO (09:13)
[2024-02-16] MEDS: Aspirin Enteric Coated 81 MG TABLET.DR PO (09:13)
[2024-02-16] MEDS: mycophenolate mofetiL 250 MG CAPSULE 500 MG PO ×2 (09:13→21:33)
[2024-02-16] MEDS: Lidocaine 4 % Patch ADH..PATCH 1 PATCH TRANSDERMA (09:14)
[2024-02-16] MEDS: 0.9 % Sodium Chloride Flush 3 ML SYRINGE IVFLUSH ×3 (09:14→21:36)
[2024-02-16] MEDS: glipiZIDE 5 MG TABLET PO (10:18)
[2024-02-16 11:11] LABS: Glucose, Whole Blood 161 mg/dL (60-115)
--- NOTE | 2024-02-16 11:21 | HO.PM.IMPN ---
Subjective Subjective Date of Service: 02/16/24 Interval History: sob back to baseline, complaining of headache Physical Exam Vital Signs: Vital Signs: Last Vital Signs Temp 97.8 F 02/16/24 07:30 Pulse 73 02/16/24 07:30 Resp 20 02/16/24 07:30 BP 133/76 02/16/24 07:30 Pulse Ox 100 02/16/24 07:30 O2 Del Method Humidified O2 02/16/24 07:30 O2 Flow Rate 4 02/16/24 07:30 FiO2 45 02/14/24 19:29 BMI result Body Mass Index 23.5 Const: General: no acute distress and tired appearing Eyes: Sclerae: sclerae normal EOM: EOMs intact bilaterally Neck: Neck: Yes no lymphadenopathy, Yes trachea midline and Yes supple Resp: Effort & Inspection: normal respiratory effort and no respiratory distress Auscultation: rales diffuse Cardio: Rate: regular rate Rhythm: regular rhythm Heart sounds: no gallops, no murmurs and no rubs GI: Palpation (GI): Soft to palpation and Other GI palpation findings present ( Nontender) Auscultation: normal bowel sounds Extrem: General: No clubbing, No cyanosis and No edema (Trace bilateral) Objective Data Active Medications Acetaminophen (Acetaminophen 325 Mg Tablet) 650 mg PO Q6H PRN PRN Reason: Pain, Mild (Pain Scale 1-3), fever or headache Last Admin: 02/16/24 09:13 Dose: 650 mg Documented By: ZAIN Aspirin (Aspirin Enteric Coated 81 Mg Tablet.) 81 mg PO DAILY [facility] Last Admin: 02/16/24 09:13 Dose: 81 mg Documented By: ZAIN Atorvastatin Calcium (Atorvastatin Calcium 40 Mg Tablet) 40 mg PO BEDTIME [facility] Last Admin: 02/15/24 22:57 Dose: 40 mg Documented By: LAFLAMC Benzonatate (Benzonatate 100 Mg Capsule) 100 mg PO TID PRN PRN Reason: Cough Last Admin: 02/13/24 20:02 Dose: 100 mg Documented By: ANIBAL-RIVLA Calcium Carbonate (Calcium Carbonate 750 Mg Tab.Chew) 750 mg PO Q4H PRN PRN Reason: Heartburn Duloxetine HCl (Duloxetine Hcl 60 Mg Capsule.) 60 mg PO DAILY [facility] Last Admin: 02/16/24 09:13 Dose: 60 mg Documented By: ZAIN Enoxaparin Sodium (Enoxaparin Sodium 40 Mg/0.4 Ml Syringe) 40 mg SUBCUT Q24H [facility] Last Admin: 02/15/24 16:06 Dose: 40 mg Documented By: JUAN ANTONIO Furosemide (Furosemide 40 Mg Tablet) 40 mg PO DAILY [facility]; Protocol Last Admin: 02/16/24 09:12 Dose: 40 mg Documented By: ZAIN Gabapentin (Gabapentin 300 Mg Capsule) 300 mg PO BEDTIME [facility] Last Admin: 02/15/24 22:56 Dose: 300 mg Documented By: MANJU Glipizide (Glipizide 5 Mg Tablet) 5 mg PO DAILY [facility] Last Admin: 02/16/24 10:18 Dose: 5 mg Documented By: ZAIN Glucose (Glucose Gel 15 Gm Gel..Gram.) 15 gm PO Q15M PRN; Protocol PRN Reason: per Hypoglycemia Standing Ord. Dextrose (D10) 250 mls @ 750 mls/hr IV Q15M PRN; Protocol PRN Reason: per Hypoglycemia Standing Ord. Insulin Glargine (Insulin Glargine,Hum.Rec.Anlog 100 Unit/Ml 10 Ml Vial) 7 unit SUBCUT BEDTIME [facility] Last Admin: 02/15/24 22:56 Dose: 7 unit Documented By: MANJU Insulin Human Lispro (Insulin Lispro 100 Unit/Ml 3 Ml Vial) 0 unit SUBCUT QIDACHS [facility]; Protocol Last Admin: 02/16/24 09:14 Dose: Not Given Documented By: ZAIN Non-Admin Reason: No Insulin Coverage Lidocaine (Lidocaine 4 % Patch Adh..Patch) 1 patch TRANSDERMA DAILY [facility]; Protocol Last Admin: 02/16/24 09:14 Dose: 1 patch Documented By: ZAIN Losartan Potassium (Losartan Potassium 50 Mg Tablet) 50 mg PO DAILY [facility]; Protocol Last Admin: 02/16/24 09:12 Dose: 50 mg Documented By: ZAIN Magnesium Hydroxide (Milk Of Magnesia 30 Ml Oral.Susp) 30 ml PO DAILY PRN PRN Reason: Constipation Last Admin: 02/12/24 13:17 Dose: 30 ml Documented By: WHITLEY Magnesium Oxide (Magnesium Oxide 400 Mg Tablet) 400 mg PO BIDPC [facility] Last Admin: 02/16/24 09:13 Dose: 400 mg Documented By: ZAIN Melatonin (Melatonin 3 Mg Tablet) 6 mg PO BEDTIME PRN PRN Reason: Insomnia Last Admin: 02/14/24 21:19 Dose: 6 mg Documented By: MANJU Mycophenolate Mofetil (Mycophenolate Mofetil 250 Mg Capsule) 500 mg PO BID [facility] Last Admin: 02/16/24 09:13 Dose: 500 mg Documented By: ZAIN Nystatin (Nystatin Oral Susp 500,000 Unit/5 Ml Oral.Susp) 500,000 unit PO TID [facility]; Protocol Last Admin: 02/16/24 09:12 Dose: 500,000 unit Documented By: ZAIN Ondansetron HCl (Ondansetron Hcl 4 Mg/2 Ml Vial) 4 mg IVPUSH Q8H PRN PRN Reason: Nausea and Vomiting Prednisone (Prednisone 20 Mg Tablet) 40 mg PO DAILY [facility] Last Admin: 02/16/24 09:12 Dose: 40 mg Documented By: ZAIN Senna/Docusate Sodium (Sennosides/Docusate Sodium Tablet) 2 tab PO BEDTIME PRN PRN Reason: Constipation Last Admin: 02/15/24 22:54 Dose: 2 tab Documented By: MANJU Sodium Chloride (0.9 % Sodium Chloride Flush 3 Ml Syringe) 3 ml IVFLUSH QSHIFT [facility] Last Admin: 02/16/24 09:14 Dose: 3 ml Documented By: ZAIN Vitamin D (Cholecalciferol (Vitamin D3) 25 Mcg Tablet) 50 mcg PO DAILY [facility] Last Admin: 02/16/24 09:13 Dose: 50 mcg Documented By: ZAIN Labs 02/10/24 14:32 02/13/24 06:50 Labs: Laboratory Results - last 24 hr 02/15/24 02/15/24 02/15/24 12:00 16:15 20:22 POC Glucose 62 254 H 325 H 02/16/24 02/16/24 07:34 11:04 POC Glucose 104 161 H Assessment and Plan (1) Acute heart failure with preserved ejection fraction (HFpEF): Status: Acute Assessment and Plan: 83F PMH chronic hypoxic respiratory failure due to interstitial lung disease on 4L home O2, COPD/asthma overlap syndrome, HFpEF, CVA, HTN, chronic thrombocytosis, and insulin-dependent type 2 diabetes who presented from home to the ED with?worsening SOB and VEGA times 3-4 days. Acute on chronic hypoxic respiratory failure in the setting of acute HFrEF decompensation/ Pulm fibrosis exacerbation back to baseline, now on oral lasix maintenance and prednisone 40mg daily acute Hypomagnesemia, mild repleted and resolved. COPD/severe persistent asthma with acute decompensation Continue home inhalers, prednisone Insulin-dependent type 2 diabetes Sliding-scale insulin, Lantus Hold metformin Continue glipizide Hx of CVA Continue aspirin and statin HTN Continue losartan DNR/DNI, verified with patient and family at bedside DVT Prophylaxis: Lovenox reason for continued hospitalization:awaiting bed at [facility] re[facility] Quality Stroke Does the patient have a stroke diagnosis?: No VTE Prior VTE?: No VTE Risk Level:: Medical - moderate - high VTE Device Contraindication: Treatment Not Indicated VTE Drug Contraindication: N/A - Med Ordered
--- NOTE | 2024-02-16 11:28 | PM.DS ---
DS: Providers Provider Date of Service: 02/18/24 Date of admission: 02/10/24 16:41 Date of discharge: 02/18/24 Primary care physician: Ciro Daniel MD Consults: 02/11/24 07:32 Consult to Cardiology Routine Consulting Provider: [facility] Reason for consultation: chf excerebation Has provider been notified: No 02/11/24 09:13 Consult to Critical Care Routine Consulting Provider: Maxx Montejo Reason for consultation: Level of care Has provider been notified: No DS: Diagnosis Discharge Diagnosis (1) Acute heart failure with preserved ejection fraction (HFpEF): Status: Acute DS: Summary Hospital Course Hospital Course: from initial hpi: 83-year-old Niuean-speaking female with a PMH significant for chronic hypoxic respiratory failure due to interstitial lung disease on 4L home O2, 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 Patient reports she has had increased difficulty breathing despite being on 4 L home NC for the past few days. Endorses subjective fever and increased mostly nonproductive cough, as well as intermittent chest pain/tightness associated with breathing and cough. Has been feeling increasingly weak and dizzy. Presents today when she was so weak this morning that she could not get out of bed or walk. Reports she ?just feel sick?. Of note, during interview and exam patient removed her OxyMask to speak and quickly began desatting into the low 70s. Once OxyMask was placed back on patient continued to desatted as low as 51%. Was temporarily placed on non-rebreather for 1-2 minutes with good response up to 100%. Was then transitioned back to OxyMask where she maintained O2 saturation >90. Denies fever, chills, nausea, vomiting. In the ED pt was tachypneic up 28, tachycardic to 97, and slightly soft BP as low as 117/54. Labs were significant for chronically elevated WBC of 0.8, stable normocytic anemia of 9.1/30.3, Mag 1.5, alk-phos 152, troponin 14.5, and BNP 1053. Tested negative for COVID, RSV, and flu. Official CXR read showed chronic interstitial lung disease with no acute abnormality of the chest, however to this examiner looks like pulmonary edema. EKG demonstrated sinus tachycardia of 101 PVC and T-wave inversions in lateral leads but no evidence of significant ST elevations or depressions. Pt was treated with furosemide 40 mg IV and DuoNebs. Pt will be admitted to the hospital for treatment and further evaluation of acute CHF exacerbation. hospital course: Patient was admitted for acute on chronic hypoxic respiratory failure secondary to acute on chronic systolic CHF and pulmonary fibrosis/COPD/severe persistent asthma with acute decompensation. She was treated with IV Lasix and diuresed well she was also given high-dose steroids and was weaned down to her baseline oxygen of 4 L she is now saturating 100% and feeling much better. Her Lasix maintenance was increased to 40 mg daily, she will be given prednisone 40 mg for 5 more days and continue on her CellCept. She was seen by physical therapy recommended pulmonary rehab. but family opted for home with services. For acute hypomagnesemia this was replaced. For diabetes was continued on basal bolus insulin. For history of CVA she continued on aspirin statin. For hypertension she was continued on losartan. Time Attestation Discharge Coordination Time (in mins): 34 Quality: Safe Use of Opioids Does Pt have an Active Cancer Diagnosis on the Problem List?: No Quality: Stroke Does the patient have a stroke diagnosis?: No Physical Exam Vital Signs: Vital Signs: Last Vital Signs Temp 97.8 F 02/16/24 07:30 Pulse 73 02/16/24 07:30 Resp 20 02/16/24 07:30 BP 133/76 02/16/24 07:30 Pulse Ox 100 02/16/24 07:30 O2 Del Method Humidified O2 02/16/24 07:30 O2 Flow Rate 4 02/16/24 07:30 FiO2 45 02/14/24 19:29 BMI result Body Mass Index 23.5 Const: General: no acute distress and tired appearing Eyes: Sclerae: sclerae normal EOM: EOMs intact bilaterally Neck: Neck: Yes no lymphadenopathy, Yes trachea midline and Yes supple Resp: Effort & Inspection: normal respiratory effort and no respiratory distress Auscultation: rales diffuse Cardio: Rate: regular rate Rhythm: regular rhythm Heart sounds: no gallops, no murmurs and no rubs GI: Palpation (GI): Soft to palpation and Other GI palpation findings present ( Nontender) Auscultation: normal bowel sounds Extrem: General: No clubbing, No cyanosis and No edema (Trace bilateral) DS: Data Data Completed and Pending Labs on day of discharge: Laboratory Results - last 24 hr 02/15/24 02/15/24 02/15/24 12:00 16:15 20:22 POC Glucose 62 254 H 325 H 02/16/24 02/16/24 07:34 11:04 POC Glucose 104 161 H Discharge Plan Discharge Anticipated Discharge Date/Time: 02/16/24 11:25 Patient Disposition: Home Health Service Discharge Diagnosis: pulm fibrosis, chf Referrals: Po,Ciro Silva MD [Primary Care Provider] - 1 Week Discharge Medications: New furosemide 40 mg Tablet 40 mg PO DAILY Qty: 0 0RF Protocol: Hold for SBP< HOLD for SBP < : 90 prednisone 20 mg Tablet 40 mg PO DAILY 5 Days Qty: 10 0RF magnesium oxide 400 mg (241.3 mg magnesium) Tablet 400 mg PO BIDPC Qty: 0 0RF Continued (DME) Agilence G2 blood glucose moniter starter kit See Rx Instructions .Route .MEDSUPPLY Qty: 1 0RF Rx Instructions: As directed (DME) medline basic face mask See Rx Instructions .Route .MEDSUPPLY Qty: 1 11RF Rx Instructions: As directed (DME) Medline ext cuff nitrile glove sterile pairs (medium) See Rx Instructions .Route .MEDSUPPLY Qty: 1 11RF Rx Instructions: As directed (DME) Medline wall mount sharps container 3 galloon red See Rx Instructions .Route .MEDSUPPLY Qty: 1 3RF Rx Instructions: As directed (DME) O2 Gas System Home Transfill Unit ([id number]) See Rx Instructions .Route .MEDSUPPLY Qty: 1 0RF Rx Instructions: As directed (DME) Washable Incontinence Pads (Orthopedic Physical Therapist Pad) 0 .Route .MEDSUPPLY Qty: 60 12RF Rx Instructions: As directed (DME) pen needle, diabetic [BD Ultra-Fine Micro Pen Needle] 32 gauge x 1/4 needle See Rx Instructions .Route Qty: 100 3RF Rx Instructions: As directed inject insulin one a day (DME) BEDSIDE COMMODE See Rx Instructions .Route .MEDSUPPLY Qty: 1 0RF Rx Instructions: As directed (DME) WIPES See Rx Instructions .Route .MEDSUPPLY Qty: 2 11RF Rx Instructions: As directed (DME) incontinence pad, liner, disp Pad See Rx Instructions .Route Qty: 180 12RF Rx Instructions: As directed mycophenolate mofetil 500 mg tablet 500 mg PO BID 30 Days Qty: 60 2RF (DME) MEDIUM PULL UPS See Rx Instructions .Route .MEDSUPPLY Qty: 90 11RF Rx Instructions: As directed (DME) bedside commode Kit See Rx Instructions .Route Qty: 1 0RF Rx Instructions: As directed (DME) GERMICIDAL DISPOSABLE WIPES See Rx Instructions .Route .MEDSUPPLY Qty: 2 12RF Rx Instructions: As directed (DME) HOSPITAL BED See Rx Instructions .Route .MEDSUPPLY Qty: 1 0RF Rx Instructions: As directed (DME) Mattress for hospital bed 0 .Route .MEDSUPPLY Qty: 1 0RF Rx Instructions: As directed (DME) medline alcohol prep pads 1.75x3 See Rx Instructions .Route .MEDSUPPLY Qty: 1 12RF Rx Instructions: As directed (DME) medlinecontour plus bladder control pads See Rx Instructions .Route .MEDSUPPLY Qty: 90 12RF Rx Instructions: As directed (DME) RECLINER See Rx Instructions .Route .MEDSUPPLY Qty: 1 0RF Rx Instructions: As directed (DME) Semi- Electric Hospital Bed with Mattress and Rails See Rx Instructions .Route .MEDSUPPLY Qty: 1 0RF Rx Instructions: As directed (DME) ULTRA THIN PADS See Rx Instructions .Route .MEDSUPPLY Qty: 30 12RF Rx Instructions: As directed (DME) ULTRASORB UNDER PADS See Rx Instructions .Route .MEDSUPPLY Qty: 1 11RF Rx Instructions: As directed insulin glargine [Lantus Solostar U-100 Insulin] 100 unit/mL (3 mL) insulin pen 10 unit subcut DAILY@1300 Qty: 15 3RF cholecalciferol (vitamin D3) 50 mcg (2,000 unit) capsule 50 mcg PO DAILY 90 Days Qty: 90 0RF aspirin [Adult Aspirin Regimen] 81 mg tablet,delayed release (DR/EC) 81 mg PO DAILY 90 Days Qty: 90 0RF losartan 50 mg tablet 50 mg PO DAILY 90 Days Qty: 90 0RF duloxetine 60 mg capsule,delayed release(DR/EC) 60 mg PO DAILY 90 Days Qty: 90 0RF gabapentin 300 mg capsule 300 mg PO BEDTIME 90 Days Qty: 90 0RF metformin 750 mg tablet extended release 24 hr 750 mg PO BID 90 Days Qty: 180 0RF sennosides-docusate sodium [Senna Plus] 8.6-50 mg tablet 2 tab-cap PO BEDTIME PRN (Reason: Constipation) Qty: 180 3RF glipizide 5 mg tablet 5 mg PO DAILY Qty: 90 1RF acetaminophen 500 mg tablet 1,000 mg PO TID PRN (Reason: Pain) atorvastatin 40 mg tablet 40 mg PO BEDTIME nystatin 100,000 unit/mL suspension 5 ml PO TID 7 Days Qty: 105 0RF Rx Instructions: swish and swallow melatonin 3 mg capsule 3 mg PO BEDTIME PRN (Reason: sleep) Qty: 30 3RF (DME) Oxygen Home Use Kit See Rx Instructions .Route Rx Instructions: As directed Discontinued furosemide [Lasix] 20 mg tablet 20 mg PO DAILY Qty: 20 0RF Discharge Orders: Discharge Order (Routine); Ordered 02/17/24 Ordered By: Joe Zambrano Diet: Advance to usual diet Activity on Discharge: As tolerated Stand Alone Forms: Patient Portal Discharge page Print Language: Niuean Care Plan Goals: recovery Health Concerns: pulm fibrosis Plan of Treatment: prendismadhuri, follow up with pulmonary Assessment: see above
[2024-02-16 11:41] VITALS: BP 129/72; PULSE 71; RESP 20; TEMP 36.4; O2SAT 98
[2024-02-16] MEDS: Insulin Lispro 100 UNIT/ML 3 ML VIAL SUBCUT ×3 (12:04→21:35)
--- NOTE | 2024-02-16 12:18 | MHC.CM.PN ---
PT is recommending Inpatient Pulmonary Rehab and Patient has several SNF bed offers. Daughter/Kylee @ [phone] is discussing SNF options and ? of home instead of STR with family. CM awaits a return call from Kylee.
--- NOTE | 2024-02-16 13:20 | MHC.CM.PN ---
CM called Daughter/Kylee @ [phone], but was only able to leave a detailed message. CM awaits Patient/family's decision (Which SNF vs dc to home instead). CM will follow.
--- NOTE | 2024-02-16 13:47 | MHC.CM.PN ---
Daughter has toured [facility]; she is on her way to discuss the plan with Patient. CM will follow.
[2024-02-16 15:26] VITALS: BP 110/56; PULSE 84; RESP 20; TEMP 36.4; O2SAT 100
[2024-02-16 16:42] LABS: Glucose, Whole Blood 216 mg/dL (60-115)
[2024-02-16] MEDS: Enoxaparin Sodium 40 MG/0.4 ML SYRINGE SUBCUT (16:48)
[2024-02-16 19:27] VITALS: BP 116/58; PULSE 85; RESP 18; TEMP 36.9; O2SAT 95
[2024-02-16 20:50] LABS: Glucose, Whole Blood 176 mg/dL (60-115)
[2024-02-16] MEDS: Melatonin 3 MG TABLET 6 MG PO (21:34)
[2024-02-16] MEDS: Gabapentin 300 MG CAPSULE PO (21:34)
[2024-02-16] MEDS: Atorvastatin Calcium 40 MG TABLET PO (21:34)
[2024-02-16] MEDS: Insulin Glargine,Hum.rec.anlog 100 UNIT/ML 10 ML VIAL 7 UNIT SUBCUT (21:36)
[2024-02-17] VITALS (7 sets, daily range): BP systolic 102–139; BP diastolic 56–68; PULSE 61–84; RESP 16–20; TEMP 36.2–37; O2SAT 3–100
[2024-02-17 07:11] LABS: Glucose, Whole Blood 101 mg/dL (60-115)
[2024-02-17] MEDS: Cholecalciferol (Vitamin D3) 25 MCG TABLET 50 MCG PO (09:37)
[2024-02-17] MEDS: Nystatin Oral Susp 500,000 UNIT/5 ML ORAL.SUSP 500000 UNIT PO ×3 (09:37→20:05)
[2024-02-17] MEDS: Aspirin Enteric Coated 81 MG TABLET.DR PO (09:37)
[2024-02-17] MEDS: DULoxetine HCl 60 MG CAPSULE.DR PO (09:38)
[2024-02-17] MEDS: Furosemide 40 MG TABLET PO (09:38)
[2024-02-17] MEDS: Magnesium Oxide 400 MG TABLET PO ×2 (09:38→17:12)
[2024-02-17] MEDS: Lidocaine 4 % Patch ADH..PATCH 1 PATCH TRANSDERMA (09:38)
[2024-02-17] MEDS: glipiZIDE 5 MG TABLET PO (09:38)
[2024-02-17] MEDS: Losartan Potassium 50 MG TABLET PO (09:38)
[2024-02-17] MEDS: mycophenolate mofetiL 250 MG CAPSULE 500 MG PO ×2 (09:38→20:05)
[2024-02-17] MEDS: predniSONE 20 MG TABLET 40 MG PO (09:38)
[2024-02-17] MEDS: 0.9 % Sodium Chloride Flush 3 ML SYRINGE IVFLUSH ×3 (09:39→20:06)
--- NOTE | 2024-02-17 10:51 | HO.PM.IMPN ---
Subjective Subjective Date of Service: 02/17/24 Interval History: sob back to baseline, complaining of headache but improves with tylenol Physical Exam Vital Signs: Vital Signs: Last Vital Signs Temp 97.8 F 02/17/24 07:32 Pulse 73 02/17/24 07:32 Resp 20 02/17/24 07:32 BP 139/65 02/17/24 07:32 Pulse Ox 100 02/17/24 07:32 O2 Del Method Humidified O2 02/17/24 07:32 O2 Flow Rate 4 02/17/24 07:32 FiO2 45 02/14/24 19:29 BMI result Body Mass Index 23.5 Const: General: no acute distress and tired appearing Eyes: Sclerae: sclerae normal EOM: EOMs intact bilaterally Neck: Neck: Yes no lymphadenopathy, Yes trachea midline and Yes supple Resp: Effort & Inspection: normal respiratory effort and no respiratory distress Auscultation: rales diffuse Cardio: Rate: regular rate Rhythm: regular rhythm Heart sounds: no gallops, no murmurs and no rubs GI: Palpation (GI): Soft to palpation and Other GI palpation findings present ( Nontender) Auscultation: normal bowel sounds Extrem: General: No clubbing, No cyanosis and No edema (Trace bilateral) Objective Data Active Medications Acetaminophen (Acetaminophen 325 Mg Tablet) 650 mg PO Q6H PRN PRN Reason: Pain, Mild (Pain Scale 1-3), fever or headache Last Admin: 02/16/24 09:13 Dose: 650 mg Documented By: ZAIN Aspirin (Aspirin Enteric Coated 81 Mg Tablet.) 81 mg PO DAILY [facility] Last Admin: 02/17/24 09:37 Dose: 81 mg Documented By: ZAIN Atorvastatin Calcium (Atorvastatin Calcium 40 Mg Tablet) 40 mg PO BEDTIME [facility] Last Admin: 02/16/24 21:34 Dose: 40 mg Documented By: CHUCK Benzonatate (Benzonatate 100 Mg Capsule) 100 mg PO TID PRN PRN Reason: Cough Last Admin: 02/13/24 20:02 Dose: 100 mg Documented By: ANIBAL-REUBEN Calcium Carbonate (Calcium Carbonate 750 Mg Tab.Chew) 750 mg PO Q4H PRN PRN Reason: Heartburn Duloxetine HCl (Duloxetine Hcl 60 Mg Capsule.) 60 mg PO DAILY [facility] Last Admin: 02/17/24 09:38 Dose: 60 mg Documented By: ZAIN Enoxaparin Sodium (Enoxaparin Sodium 40 Mg/0.4 Ml Syringe) 40 mg SUBCUT Q24H [facility] Last Admin: 02/16/24 16:48 Dose: 40 mg Documented By: ZAIN Furosemide (Furosemide 40 Mg Tablet) 40 mg PO DAILY [facility]; Protocol Last Admin: 02/17/24 09:38 Dose: 40 mg Documented By: ZAIN Gabapentin (Gabapentin 300 Mg Capsule) 300 mg PO BEDTIME [facility] Last Admin: 02/16/24 21:34 Dose: 300 mg Documented By: CHUCK Glipizide (Glipizide 5 Mg Tablet) 5 mg PO DAILY [facility] Last Admin: 02/17/24 09:38 Dose: 5 mg Documented By: ZAIN Glucose (Glucose Gel 15 Gm Gel..Gram.) 15 gm PO Q15M PRN; Protocol PRN Reason: per Hypoglycemia Standing Ord. Dextrose (D10) 250 mls @ 750 mls/hr IV Q15M PRN; Protocol PRN Reason: per Hypoglycemia Standing Ord. Insulin Glargine (Insulin Glargine,Hum.Rec.Anlog 100 Unit/Ml 10 Ml Vial) 7 unit SUBCUT BEDTIME [facility] Last Admin: 02/16/24 21:36 Dose: 7 unit Documented By: CHUCK Insulin Human Lispro (Insulin Lispro 100 Unit/Ml 3 Ml Vial) 0 unit SUBCUT QIDACHS [facility]; Protocol Last Admin: 02/17/24 09:39 Dose: Not Given Documented By: ZAIN Non-Admin Reason: No Insulin Coverage Lidocaine (Lidocaine 4 % Patch Adh..Patch) 1 patch TRANSDERMA DAILY [facility]; Protocol Last Admin: 02/17/24 09:38 Dose: 1 patch Documented By: ZAIN Losartan Potassium (Losartan Potassium 50 Mg Tablet) 50 mg PO DAILY [facility]; Protocol Last Admin: 02/17/24 09:38 Dose: 50 mg Documented By: ZAIN Magnesium Hydroxide (Milk Of Magnesia 30 Ml Oral.Susp) 30 ml PO DAILY PRN PRN Reason: Constipation Last Admin: 02/12/24 13:17 Dose: 30 ml Documented By: WHITLEY Magnesium Oxide (Magnesium Oxide 400 Mg Tablet) 400 mg PO BIDPC [facility] Last Admin: 02/17/24 09:38 Dose: 400 mg Documented By: ZAIN Melatonin (Melatonin 3 Mg Tablet) 6 mg PO BEDTIME PRN PRN Reason: Insomnia Last Admin: 02/16/24 21:34 Dose: 6 mg Documented By: CHUCK Mycophenolate Mofetil (Mycophenolate Mofetil 250 Mg Capsule) 500 mg PO BID [facility] Last Admin: 02/17/24 09:38 Dose: 500 mg Documented By: ZAIN Nystatin (Nystatin Oral Susp 500,000 Unit/5 Ml Oral.Susp) 500,000 unit PO TID [facility]; Protocol Last Admin: 02/17/24 09:37 Dose: 500,000 unit Documented By: ZAIN Ondansetron HCl (Ondansetron Hcl 4 Mg/2 Ml Vial) 4 mg IVPUSH Q8H PRN PRN Reason: Nausea and Vomiting Prednisone (Prednisone 20 Mg Tablet) 40 mg PO DAILY [facility] Last Admin: 02/17/24 09:38 Dose: 40 mg Documented By: ZAIN Senna/Docusate Sodium (Sennosides/Docusate Sodium Tablet) 2 tab PO BEDTIME PRN PRN Reason: Constipation Last Admin: 02/15/24 22:54 Dose: 2 tab Documented By: LAFLAMAlicia Sodium Chloride (0.9 % Sodium Chloride Flush 3 Ml Syringe) 3 ml IVFLUSH QSHIFT [facility] Last Admin: 02/17/24 09:39 Dose: 3 ml Documented By: ZAIN Vitamin D (Cholecalciferol (Vitamin D3) 25 Mcg Tablet) 50 mcg PO DAILY [facility] Last Admin: 02/17/24 09:37 Dose: 50 mcg Documented By: ZAIN Labs 02/10/24 14:32 02/13/24 06:50 Labs: Laboratory Results - last 24 hr 02/16/24 02/16/24 02/16/24 11:04 16:30 20:29 POC Glucose 161 H 216 H 176 H 02/17/24 07:03 POC Glucose 101 Assessment and Plan (1) Acute heart failure with preserved ejection fraction (HFpEF): Status: Acute Assessment and Plan: 83F PMH chronic hypoxic respiratory failure due to interstitial lung disease on 4L home O2, COPD/asthma overlap syndrome, HFpEF, CVA, HTN, chronic thrombocytosis, and insulin-dependent type 2 diabetes who presented from home to the ED with?worsening SOB and VEGA times 3-4 days. Acute on chronic hypoxic respiratory failure in the setting of acute HFrEF decompensation/ Pulm fibrosis exacerbation back to baseline, now on oral lasix maintenance and prednisone 40mg daily acute Hypomagnesemia, mild repleted and resolved. COPD/severe persistent asthma with acute decompensation Continue home inhalers, prednisone Insulin-dependent type 2 diabetes Sliding-scale insulin, Lantus Hold metformin Continue glipizide Hx of CVA Continue aspirin and statin HTN Continue losartan DNR/DNI, verified with patient and family at bedside DVT Prophylaxis: Lovenox reason for continued hospitalization:awaiting bed at [facility] Quality Stroke Does the patient have a stroke diagnosis?: No VTE Prior VTE?: No VTE Risk Level:: Medical - moderate - high VTE Device Contraindication: Treatment Not Indicated VTE Drug Contraindication: N/A - Med Ordered
[2024-02-17 11:14] LABS: Glucose, Whole Blood 116 mg/dL (60-115)
--- NOTE | 2024-02-17 14:20 | MHC.CM.PN ---
Addendum entered by Carla Ruby 02/17/24 15:23: This CM was informed that [facility] will not have a bed in the foreseeable future, plan will be for pt to discharge home with new VNA services tomorrow via family transport. Per pts daughter Kylee, they would like [facility] as the daughter reports having a less than favorable experience with [facility] in the past. Original Note: Pt is medically cleared for discharge pending STR placement, this CM spoke with pts daughter Kylee and their first and only choice in STR facilities is [facility]. Per [facility], they now do not have an open bed, but may have an opening in the next day. Per pts daughter they do not want her going to any other facility and will take her home if they can't get her into [facility]. [facility] will let us know if a bed opens up and will then need to pursue insurance auth. Hospitalist aware.
[2024-02-17 15:55] LABS: Glucose, Whole Blood 344 mg/dL (60-115)
[2024-02-17] MEDS: Insulin Lispro 100 UNIT/ML 3 ML VIAL SUBCUT ×2 (17:12→21:00)
[2024-02-17] MEDS: Enoxaparin Sodium 40 MG/0.4 ML SYRINGE SUBCUT (17:12)
[2024-02-17] MEDS: Gabapentin 300 MG CAPSULE PO (20:05)
[2024-02-17] MEDS: Atorvastatin Calcium 40 MG TABLET PO (20:05)
[2024-02-17] MEDS: Melatonin 3 MG TABLET 6 MG PO (20:05)
[2024-02-17 20:39] LABS: Glucose, Whole Blood 171 mg/dL (60-115)
[2024-02-17] MEDS: Insulin Glargine,Hum.rec.anlog 100 UNIT/ML 10 ML VIAL 7 UNIT SUBCUT (21:00)
[2024-02-18 03:34] VITALS: BP 118/58; PULSE 66; RESP 16; TEMP 37.2; O2SAT 100
[2024-02-18 07:29] LABS: Glucose, Whole Blood 94 mg/dL (60-115)
[2024-02-18 07:42] VITALS: BP 125/67; PULSE 72; RESP 20; TEMP 36.1; O2SAT 98
--- NOTE | 2024-02-18 09:23 | MHC.CM.PN ---
PT MEDICALLY CLEARED FOR DC HOME W/[facility] AND [facility] OF [facility] FOR HOME O2 AND PER PULMONOLOGY AND FAMILY REQUEST PULMONOLGY WILL CONTACT [facility] AND ORDER O2 W/HUMIDIFICATION/BUBBLER, FAMILY WILL TRANSPORT.
[2024-02-18] MEDS: Cholecalciferol (Vitamin D3) 25 MCG TABLET 50 MCG PO (09:25)
[2024-02-18] MEDS: Magnesium Oxide 400 MG TABLET PO (09:25)
[2024-02-18] MEDS: Lidocaine 4 % Patch ADH..PATCH 1 PATCH TRANSDERMA (09:25)
[2024-02-18] MEDS: DULoxetine HCl 60 MG CAPSULE.DR PO (09:25)
[2024-02-18] MEDS: glipiZIDE 5 MG TABLET PO (09:25)
[2024-02-18] MEDS: Furosemide 40 MG TABLET PO (09:25)
[2024-02-18] MEDS: Aspirin Enteric Coated 81 MG TABLET.DR PO (09:25)
[2024-02-18] MEDS: 0.9 % Sodium Chloride Flush 3 ML SYRINGE IVFLUSH (09:26)
[2024-02-18] MEDS: Losartan Potassium 50 MG TABLET PO (09:26)
[2024-02-18] MEDS: mycophenolate mofetiL 250 MG CAPSULE 500 MG PO (09:26)
[2024-02-18] MEDS: predniSONE 20 MG TABLET 40 MG PO (09:26)
[2024-02-18] MEDS: Nystatin Oral Susp 500,000 UNIT/5 ML ORAL.SUSP 500000 UNIT PO (09:27)
--- NOTE | 2024-02-18 09:31 | P.PNPL_ITS ---
Subjective Subjective Date of Service: 02/18/24 Interval history: The patient was seen on exam. She is feeling better. She does not want to go to rehab. Now has been arranged to go home. Her breathing is better she is still on nasal cannula oxygen. She is getting dry mucous membranes will try to set her up with bubbler to minimize irritation. I also give him additional ideas to try to minimize irritation. I did talk to the patient and also her son about the issues with her heart now resulting from her pulmonary condition. She has cor pulmonale and severe pulmonary hypertension. She is not a candidate for vasodilators therapy because of the concerns of increasing her left ventricular end-diastolic pressure. Her last chest x-ray looks significantly better after aggressive diuresis. Objective Data Labs 02/10/24 14:32 02/13/24 06:50 Labs: Laboratory Results - last 24 hr 02/17/24 02/17/24 02/17/24 11:01 15:49 20:31 POC Glucose 116 H 344 H 171 H 02/18/24 07:23 POC Glucose 94 Review of Systems Constitutional: Denies headache(s) and Denies malaise Denies headache(s) and Reports neck pain Cardiovascular: Denies chest pain, Denies leg edema, Reports dyspnea on exertion and Reports orthopnea Respiratory: Denies cough, Denies excessive phlegm production, Reports dyspnea on exertion and Denies wheezing Gastrointestinal: Denies nausea Musculoskeletal: Reports neck pain Denies headache(s) Hematologic/Lymphatic: Reports no additional hematologic/lymphatic complaints Allergic/Immunologic: Denies wheezing Physical Exam 2 Vital Signs: Vital Signs: Last Vital Signs Temp 97.0 F 02/18/24 07:42 Pulse 72 02/18/24 07:42 Resp 20 02/18/24 07:42 BP 125/67 02/18/24 07:42 Pulse Ox 98 02/18/24 07:42 O2 Del Method Nasal Cannula 02/18/24 07:42 O2 Flow Rate 2 02/18/24 07:42 FiO2 45 02/14/24 19:29 BMI result Body Mass Index 23.5 Const: General: no acute distress and tired appearing Eyes: Sclerae: sclerae normal EOM: EOMs intact bilaterally Neck: Neck: Yes no lymphadenopathy, Yes trachea midline and Yes supple Resp: Effort & Inspection: normal respiratory effort and no respiratory distress Auscultation: rales diffuse Cardio: Rate: regular rate Rhythm: regular rhythm Heart sounds: no gallops, no murmurs, no rubs and Abnormal heart opening sounds loud S2 GI: Palpation (GI): Soft to palpation and Other GI palpation findings present ( Nontender) Auscultation: normal bowel sounds Extrem: General: No clubbing, No cyanosis and No edema (Trace bilateral) Procedures Date of Service Date of Service: 02/18/24 Assessment and Plan Assessment and plan (1) Acute heart failure with preserved ejection fraction (HFpEF): Status: Acute (2) Congestive heart failure: Status: Acute (3) Asthma-COPD overlap syndrome: Status: Acute (4) Interstitial pulmonary fibrosis: Problem details: December 2015 Status: Acute (5) Pulmonary hypertension: Problem details: severe, likely cor pulmonale Status: Acute Plan continue oxygen supplementation to keep pox >90%. Will need bubbler for oxygen humidification diuresis as tolerated Prednisone with taper continue respiratory therapy F/U with outpt pulmonary Time Spent With Patient Time: Total time managing care of this patient today ____ minutes. Progress Note: Quality Stroke Does the patient have a stroke diagnosis?: No
--- NOTE | 2024-02-18 10:15 | P.F2F_ITS ---
Service Date Service Date: 02/18/24 Encounter Date of encounter: 02/18/24 Reasons for Services Signs and symptoms assessed: weakness, sob on exertion Reason for senior living: medication management, medication treatment and teach disease management Reason for physical therapy: home safety and mobility, therapeutic exercises and energy conservation Homebound: Leaving the home is medically contraindicated at this time without the asist of a device and/or another person due th the listed conditions above and below. Reason homebound: shortness of breath with minimal effort Certification: Based on the above findings, I certify that this patient is confined to the home and needs intermittent senior living care, physical therapy and/or speech therapy, or continues to need occupational therapy. The patient is under my care, and I have initiated the establishment of the plan of care. The patient will be followed by a physician who will periodically review the plan of care. Time Spent With Patient Time: Total time managing care of this patient today ____ minutes.
[2024-02-18 11:20] VITALS: BP 109/58; PULSE 78; RESP 20; TEMP 36.4; O2SAT 99
[2024-02-18 11:26] LABS: Glucose, Whole Blood 171 mg/dL (60-115)
[2024-02-18] MEDS: Insulin Lispro 100 UNIT/ML 3 ML VIAL SUBCUT (11:32)
--- NOTE | 2024-02-19 12:38 | MHC.CM.PN ---
dc summary and face to face have been sent to [facility], at their request.
== END 2024-02-18 12:56 | disposition home health service (06) | DRG 291 ==
LOC: HO.ED 16:22 → HO.EDOVER 17:02 → HO.IMC 02-11 14:34
PROVIDERS: Internal Medicine; Admitting Provider Student in an Organized Health Care Education/Training Program; Emergency Provider Emergency Medicine; PCP Internal Medicine; Visit Provider Internal Medicine
DX: I11.0 Hypertensive heart disease with heart failure (principal); I50.23 Acute on chronic systolic (congestive) heart failure; J96.21 Acute and chronic respiratory failure with hypoxia; D75.839 Thrombocytosis, unspecified; E11.9 Type 2 diabetes mellitus without complications; Z66 Do not resuscitate; I27.81 Cor pulmonale (chronic); I27.29 Other secondary pulmonary hypertension; J84.112 Idiopathic pulmonary fibrosis; E83.42 Hypomagnesemia; J45.50 Severe persistent asthma, uncomplicated; J44.9 Chronic obstructive pulmonary disease, unspecified; Z20.822 Contact with and (suspected) exposure to COVID-19; Z86.73 Personal history of transient ischemic attack (TIA), and cerebral infarction without residual deficits; Z99.81 Dependence on supplemental oxygen; Z79.82 Long term (current) use of aspirin; Z79.84 Long term (current) use of oral hypoglycemic drugs; Z79.899 Other long term (current) drug therapy
CPT/HCPCS: 0241U; 36415; 71045; 80048; 80076; 81001; 81003; 82803; 82947; 83735; 83880; 84484; 85025; 93005; 93306; 94640; 94660; 97110; 97163; 97530; 99285; J1650; J1940; J2919; J3475; Q9957

== ENCOUNTER 2024-02-10 16:41 | Outpatient (BNV) | payer OTHER, SELFPAY | END 2024-02-11 07:00 | PROVIDERS: Admitting Provider Student in an Organized Health Care Education/Training Program; Emergency Provider Emergency Medicine; PCP Internal Medicine; Visit Provider Internal Medicine Cardiovascular Disease | DX: I27.81 Cor pulmonale (chronic) (principal); I51.89 Other ill-defined heart diseases | CPT/HCPCS: 93306 ==

== ENCOUNTER → 2024-02-10 16:41 | Outpatient (BNV) | payer OTHER, SELFPAY | PROVIDERS: Admitting Provider Student in an Organized Health Care Education/Training Program; Emergency Provider Emergency Medicine; PCP Internal Medicine; Visit Provider Student in an Organized Health Care Education/Training Program | DX: I50.31 Acute diastolic (congestive) heart failure (principal) | CPT/HCPCS: 99223; 99231; 99232; 99239; G0180 ==

== ENCOUNTER → 2024-02-10 16:41 | Outpatient (BNV) | payer OTHER, SELFPAY | PROVIDERS: Admitting Provider Student in an Organized Health Care Education/Training Program; Emergency Provider Emergency Medicine; PCP Internal Medicine; Visit Provider Internal Medicine Cardiovascular Disease | DX: I50.31 Acute diastolic (congestive) heart failure (principal); J84.9 Interstitial pulmonary disease, unspecified | CPT/HCPCS: 99222; 99233 ==

== ENCOUNTER → 2024-02-10 16:41 | Outpatient (BNV) | payer OTHER, SELFPAY | PROVIDERS: Admitting Provider Student in an Organized Health Care Education/Training Program; Emergency Provider Emergency Medicine; PCP Internal Medicine; Visit Provider Internal Medicine Pulmonary Disease | DX: I50.31 Acute diastolic (congestive) heart failure (principal); I50.9 Heart failure, unspecified; J44.89 Other specified chronic obstructive pulmonary disease; J84.10 Pulmonary fibrosis, unspecified; I27.20 Pulmonary hypertension, unspecified | CPT/HCPCS: 99222; 99233 ==

== ENCOUNTER 2024-02-24 14:14 | Inpatient (IN) | payer OTHER, SELFPAY ==
[2024-02-24] VITALS (7 sets, daily range): BP systolic 103–121; BP diastolic 56–64; PULSE 110–131; RESP 16–26; TEMP 36.3–36.9; O2SAT 94–100; BMI 22.7
--- NOTE | ~2024-02-24 | XR_ITS ---
EXAMINATION: XR CHEST CLINICAL INFORMATION: Shortness of breath COMPARISON: Chest x-ray February 15, 2024 TECHNIQUE: Frontal portable view of the chest was obtained. 1517 hours FINDINGS: Coarse chronic increased lung markings unchanged since prior exams. Patient has known interstitial lung disease. No acute airspace opacities. No pleural effusion. Heart size is enlarged. Surgical clip left upper quadrant of abdomen. XR/XR chest 1V IMPRESSION: Chronic interstitial lung disease. No acute airspace opacities. Electronically signed by: Rolando Lee MD 02/24/2024 03:38 PM EDT
--- NOTE | ~2024-02-24 | CT_ITS ---
EXAMINATION: CT ANGIOGRAM CHEST CLINICAL INFORMATION: Shortness of breath COMPARISON: 11/13/2023 TECHNIQUE: Multiple axial images were obtained through the chest after the administration of 50 mL of Omnipaque 350 intravenous contrast. Extensive vascular post-processing including two-dimensional and three-dimensional reformatted images were created and reviewed on an independent workstation. This CT examination was performed using dose optimization techniques as appropriate, variously including the following: *Automated exposure control *Adjustment of mA and/or kV according to patient size (this includes techniques or standardized protocols for targeted exams where dose is matched to indication/reason for exam; i.e. extremities or head) *Use of iterative reconstruction technique DLP: 271 mGy-cm FINDINGS: LUNGS: No acute pulmonary embolus. Redemonstration of increased reticulation of the pulmonary parenchyma with traction bronchiectasis of the lung bases. There is diffuse background mosaic attenuation. PLEURA: No pleural effusion. MEDIASTINUM: Small pericardial effusion. Cardiomegaly. Aorta and pulmonary artery are normal in caliber. Subcarinal mediastinal adenopathy measuring 1.5 x 2.4 cm, unchanged (6:28) . . CORONARY ARTERY CALCIFICATION: No coronary artery calcification appreciated. CHEST WALL/AXILLA: No axillary or internal mammary lymphadenopathy. UPPER ABDOMEN: Unremarkable. OSSEOUS STRUCTURES: Degenerative changes of the spine. CT/CT angio chest PE protocol IMPRESSION: * No acute pulmonary embolus. * Redemonstration of increased reticulation of the pulmonary parenchyma with traction bronchiectasis of the lung bases. There is diffuse background mosaic attenuation. These findings are concerning for interstitial lung disease. * Subcarinal mediastinal adenopathy, unchanged. Electronically signed by: Karen Mejía MD 02/24/2024 07:47 PM EDT
--- NOTE | 2024-02-24 14:31 | ED_ITS ---
HPI - General Adult General Chief complaint: Dyspnea Stated complaint: WEAK,TIRED,95% ON O2 PER EMS Time Seen by Provider: 02/24/24 14:31 Source: patient, EMS and peripatologist (All interactions with this patient were facilitated with an [facility] card punching machine operator) Mode of arrival: EMS Limitations: language barrier (All interactions with this patient were facilitated with an [facility] card punching machine operator) History of Present Illness ED Provider: Ruth Mcadams PA-C HPI narrative: Patient is an 83 year old assigned female at with a history of pulmonary HTN, interstitial pulmonary fibrosis, asthma-copd overlap, chronic respiratory failure on 4LPM, DM, HTN, and previous CVA presenting to the emergency department today with increased fatigue, weakness, and dizziness. Patient states that she has felt generally unwell with dizziness, fatigue, and weakness since her discharge from [facility]. Patient denies any lightheadedness, abdominal pain, nausea, vomiting, fever, chills, blurry vision, double vision, loss of vision, chest pain, back pain, night sweats, pain with urination, increased urinary frequency, increased urinary urgency, blood in her urine or stool, syncope or a near syncopal episode, recent trauma or falls, bowel incontinence, bladder incontinence, or any other complaints at this time. Relieving factors: none Exacerbating factors: none Associated symptoms: shortness of breath Treatments prior to arrival: none Related Data Home Medications ?Medication ?Instructions ?Recorded ?Confirmed Oxygen Home Use 10/23/22 02/22/24 acetaminophen 500 mg tablet 1,000 mg PO TID PRN Pain 10/08/23 02/22/24 atorvastatin 40 mg tablet 40 mg PO BEDTIME 02/10/24 02/22/24 Previous Rx's ?Medication ?Instructions ?[facility] #1 ea 10/02/21 starter kit Medline ext cuff nitrile glove #1 ea 12/03/21 sterile pairs (medium) Medline wall mount sharps #1 ea 12/03/21 container 3 galloon red medline basic face mask #1 ea 12/03/21 O2 Gas System Home Transfill Unit #1 ea 11/23/22 ([id number]) Washable Incontinence Pads (Medical Voucher Clerk #60 ea 07/09/23 Pad) pen needle, diabetic 32 gauge x #100 ea 08/18/2306/24 (BD Ultra-Fine Micro Pen Needle) melatonin 3 mg capsule 3 mg PO BEDTIME PRN sleep #30 caps 10/19/23 BEDSIDE COMMODE #1 ea 10/26/23 WIPES #2 ea 10/26/23 incontinence pad, liner, disp #180 ea 12/09/23 mycophenolate mofetil 500 mg tablet 500 mg PO BID 30 days #60 tabs 12/13/23 GERMICIDAL DISPOSABLE WIPES #2 ea 01/06/24 HOSPITAL BED #1 ea 01/06/24 MEDIUM PULL UPS #90 ea 01/06/24 Mattress for hospital bed #1 ea 01/06/24 RECLINER #1 ea 01/06/24 Semi- Electric Hospital Bed with #1 ea 01/06/24 Mattress and Rails ULTRA THIN PADS #30 ea 01/06/24 ULTRASORB UNDER PADS #1 ea 01/06/24 commode (bedside commode) #1 ea 01/06/24 medline alcohol prep pads 1.75x3 #1 ea 01/06/24 medlinecontour plus bladder #90 ea 01/06/24 control pads insulin glargine 100 unit/mL (3 10 unit (0.1 mL) subcut DAILY@1300 01/14/24 mL) subcutaneous pen (Lantus #15 mL Solostar U-100 Insulin) nystatin 100,000 unit/mL oral 5 ml PO TID 7 days #105 mL 01/31/24 suspension aspirin 81 mg tablet,delayed 81 mg PO DAILY 90 days #90 tabs 02/04/24 release (Adult Aspirin Regimen) cholecalciferol (vitamin D3) 50 50 mcg PO DAILY 90 days #90 caps 02/04/24 mcg (2,000 unit) capsule duloxetine 60 mg capsule,delayed 60 mg PO DAILY 90 days #90 caps 02/04/24 release gabapentin 300 mg capsule 300 mg PO BEDTIME 90 days #90 caps 02/04/24 glipizide 5 mg tablet 5 mg PO DAILY #90 tabs 02/04/24 losartan 50 mg tablet 50 mg PO DAILY 90 days #90 tabs 02/04/24 metformin 750 mg tablet,extended 750 mg PO BID 90 days #180 tabs 02/04/24 release 24 hr sennosides 8.6 mg-docusate sodium 2 tab-cap (2 x 8.6-50 mg) PO 02/04/24 50 mg tablet (Senna Plus) BEDTIME PRN Constipation #180 tabs furosemide 40 mg tablet (Lasix) 40 mg PO DAILY #90 tabs 02/18/24 magnesium 200 mg tablet 400 mg (2 x 200 mg) PO DAILY #60 02/18/24 tabs prednisone 20 mg tablet 40 mg (2 x 20 mg) PO DAILY #10 tabs 02/18/24 Allergies Allergy/AdvReac Type Severity Reaction Status Date / Time No Known Allergies Allergy Verified 02/24/24 14:41 Review of Systems 2 Constitutional: Constitutional: Reports no additional constitutional complaints, Denies chills, Denies fever(s), Denies night sweats and Reports weakness Eyes: Eyes: Reports no additional eye complaints, Denies blurry vision, Denies change in vision, Denies diplopia, Denies eye discharge, Denies loss of vision and Denies eye pain ENT: Reports dizziness Cardiovascular: Cardiovascular: Reports no additional cardiovascular complaints, Denies chest pain, Denies lightheadedness, Denies Loss of Consciousness and Reports dyspnea Respiratory: Respiratory: Reports dyspnea Comments: on 4lpm chronically Gastrointestinal: Gastrointestinal: Reports no additional gastrointestinal complaints, Denies abdominal pain, Denies melena, Denies hematochezia, Denies change in bowel habits and Denies change in stool character Genitourinary: Genitourinary: Denies hematuria, Denies urinary frequency, Denies dysuria, Denies urinary incontinence, Denies urinary hesitancy and Denies urinary urgency Musculoskeletal: Musculoskeletal: Reports no additional musculoskeletal complaints, Denies numbness and Denies tingling Neurologic: Reports dizziness, Denies loss of vision, Denies numbness, Denies tingling and Reports weakness Psychiatric: Psychiatric: Reports no additional psychiatric complaints Endocrine: Endocrine: Reports no additional endocrine complaints Hematologic/Lymphatic: Hematologic/Lymphatic: Reports no additional hematologic/lymphatic complaints Allergic/Immunologic: Allergic/Immunologic: Reports no additional allergic/immunologic complaints PMFSH Past Medical History Attestation statement: The following information was validated with the patient. Source: old records reviewed and nursing notes reviewed Medical History Pulmonary hypertension Hip pain, left Bilateral hip pain Respiratory tract infection Interstitial lung disease Viral pneumonia Pneumonitis Right lower quadrant abdominal pain UTI (urinary tract infection) Chest pain Mass on back H/O thrombocytosis COPD with acute exacerbation Pneumonia Weakness Constipation Opacities of both lungs present on chest x-ray Elevated WBC count Viral syndrome Asthma-COPD overlap syndrome Chronic respiratory failure Acute and chronic respiratory failure Generalized anxiety disorder Urinary incontinence CVA (cerebral vascular accident) Osteopenia Lumbar spinal stenosis Interstitial pulmonary fibrosis Insomnia Cystocele Hypertension Hypercholesterolemia Type 2 diabetes mellitus with hyperglycemia Surgical History Hx of section Social History Social History Household Members: Significant Other Housing: Apartment Do you presently have visiting nurse or other home services: Yes Alcohol intake: former Patient Tobacco Use Status: Never used Tobacco Tobacco use type: Cigarette e-Cigarette/Vaping Use: Never Used Second Hand Smoke Exposure: No Advance Directives: Yes Advance Directives on File: Yes Advance Directives Date on File: 10/15/23 Do you have a plan to hurt others: No Plan service: No Current occupational status: retired Cognitive needs: Yes ([employer] at home) Hearing needs: No Vision needs: Yes Physical Exam ED Vital Signs: Vital Signs - 24 hr 02/24/24 14:40 Temperature 97.9 F Pulse Rate 131 H Respiratory Rate 26 H Blood Pressure 119/61 Pulse Oximetry 99 Oxygen Delivery Method Oxymask BMI result Body Mass Index 22.7 Const General: cooperative, no acute distress, alert and awake Nutritional Appearance: well nourished Orientation/consciousness: patient oriented x3 Limitations: no limitations HENMT Head: Yes normal to inspection and Yes atraumatic Ears: hearing grossly normal bilaterally and external ears normal General nose exam: Normal external nose present, no nasal discharge noted and no epistaxis Face and sinus: Yes normal facial exam, No abrasion and No laceration Mouth: Normal oral and palatal mucosa present, no drooling and no muffled voice Eyes General: appearance normal, both eyes and all related structures Periorbital: periorbital findings normal Eyelids: Yes eyelids normal Conjunctivae: conjunctivae normal Pupils: Equal, round and reactive pupils present EOM: EOMs intact bilaterally Neck Neck: Yes normal visual inspection, Yes full ROM and Yes no lymphadenopathy Chest Chest palpation & inspection: normal inspection of the chest Resp Other: on 6 liters oxymask - arrived at 77% on 4lpm Effort & Inspection: able to speak in complete sentences and labored Cardio Rate: tachycardic Rhythm: regular rhythm GI Inspection: Yes normal to inspection Neuro General: patient oriented x3 and moves all extremities Cranial nerves: Yes Equal, round and reactive pupils present Cognition (Neuro): normal cognition Extrem General: Yes normal to inspection, Yes full ROM and Yes capillary refill normal Psych Appearance: grossly normal Mental Status: mental status grossly normal Affect: normal affect Attitude: cooperative Thought process: Normal thought process present Thought content: Normal thought content present Insight: Good insight present (Psych) Medical Decision Making Medical Decision Making [facility] Narrative: Patient is an 83 year old assigned female at with a history of pulmonary HTN, interstitial pulmonary fibrosis, asthma-copd overlap, chronic respiratory failure on 4LPM, DM, HTN, and previous CVA presenting to the emergency department today with increased fatigue, weakness, and dizziness. Patient's physical exam showed a tachycardic patient with increased work of breathing and initial hyopxia. Patient's blood work showed an elevated WBC count of 18.1 which is likely secondary to the patient's current prednisone prescription. Patient's potassium was slightly decreased at 3.1. Patient's EKG showed tachycardia. Patient's chest x-ray showed chronic interstitial lung disease. I am suspicious of a PE given the patient's increased work of breathing, tachycardia, and hypoxia. CT PE study is pending at this time. I explained my physical exam findings as well as all test results to the patient. I answered all questions asked by the patient. Patient signed out to night NAZ pending CT PE result and expanded respiratory panel. Patient will need to be admitted for hypoxia and COPD exacerbation (patient's clinical presentation is not consistent with sepsis @ 1600). Differential Diagnosis Differential Diagnoses: The differential diagnosis associated with the presentation includes PE COPD exacerbation Cough Viral illness COVID-19 Influenza RSV Admission/Observation Consideration of admission/observation: Escalation of care including admission/observation considered Patient will likely need admission after CT PE result and re-evaluation. Lab Data [facility] Lab Attestation statement: I reviewed the patient's lab results. My interpretation of these results are in the [facility] Rationale portion of this note. 02/24/24 14:50 02/24/24 14:50 Labs: Lab Results 02/24/24 02/24/24 Range/Units 14:50 14:56 WBC 18.1 H (4.8-10.8) X10*3/uL RBC 3.85 L (4.20-5.50) X10*6/uL Hgb 10.4 L (12.0-16.0) g/dl Hct 33.3 L (37.0-47.0) % MCV 86.5 (80.0-98.0) fL MCH 27.0 (27.0-33.0) pg MCHC 31.2 (31.0-35.0) g/dl RDW 15.3 (11.0-16.0) % Plt Count 765 H (160-400) X10*3/uL MPV 9.1 L (9.4-12.3) fL Hold Purple Top SEE NOTE Hold Blue Top SEE NOTE VBG pH 7.46 H (7.32-7.43) VBG pCO2 43 mmHg VBG pO2 47 mmHg VBG HCO3 31 H (22-26) mmol/L VBG O2 Saturation 83.0 % VBG Base Excess 7.2 mmol/L Sodium 142 (135-145) mmol/L Potassium 3.1 L (3.3-5.1) mmol/L Chloride 102 (96-108) mmol/L Carbon Dioxide 29 (22-29) mmol/L Anion Gap 14 (12-20) BUN 8 L (9-16) mg/dL Creatinine 0.66 (0.5-1.4) mg/dL Estim Creat Clear Calc 47.2 Estimated GFR > 60 Random Glucose 160 H (60-115) mg/dL Calcium 9.2 (8.4-10.2) mg/dL Magnesium 1.6 (1.6-2.6) mg/dL Total Bilirubin 0.8 (0.0-1.0) mg/dL AST 16 (5-31) U/L ALT 17 (0-31) U/L Alkaline Phosphatase 70 (39-117) U/L Troponin I High Sens 5.2 D (<3.5-17.0) ng/L Total Protein 7.1 (6.5-8.0) g/dL Albumin 3.5 (3.5-5.0) g/dL Influenza Type A (PCR) NEGATIVE (Negative) Influenza Type B (PCR) NEGATIVE (Negative) RSV RNA Qual (PCR) NEGATIVE (Negative) SARS-CoV-2 RNA (RT-PCR) NEGATIVE (Negative) Independent Interpretation I performed an independent interpretation of an: EKG and Plain X-Ray Interpretation: My interpretation is in agreement with the radiologist's impression of this imaging study. - EXAMINATION: XR CHEST CLINICAL INFORMATION: Shortness of breath COMPARISON: Chest x-ray February 15, 2024 TECHNIQUE: Frontal portable view of the chest was obtained. 1517 hours FINDINGS: Coarse chronic increased lung markings unchanged since prior exams. Patient has known interstitial lung disease. No acute airspace opacities. No pleural effusion. Heart size is enlarged. Surgical clip left upper quadrant of abdomen. XR/XR chest 1V IMPRESSION: Chronic interstitial lung disease. No acute airspace opacities. Electronically signed by: Rolando Lee MD 02/24/2024 03:38 PM EDT RP Dictated By: Rolando Lee MD Signed By: Electronically signed by Rolando Lee MD 02/24/24 1538 - Vent. Rate: 130 BPM Atrial Rate: 130 BPM P-R Int: 148 ms QRS Dur: 080 ms QT Int: 296 ms P-R-T Axes: 040 -49 -04 degrees QTc Int: 435 ms Sinus tachycardia with Premature atrial complexes with Aberrant conduction Left anterior fascicular block T wave abnormality, consider anterior ischemia Abnormal ECG When compared with ECG of 10-FEB-2024 15:17, Premature ventricular complexes are no longer Present Aberrant conduction is now Present Nonspecific T wave abnormality, improved in Lateral leads DD/ 1500 Radiology Impression Discussion of test interpretation with radiology: I have reviewed the radiologist's reading. Independent Historian Clinical information obtained from an independent historian. History obtained from or confirmed by: EMS (EMS provided additional history and confirmed the history provided by the patient) Critical Care Time Critical Care Time Critical Care Time: Yes Total Critical Care Time: 47 Attestation: I spent 47 minutes of Critical Care Time with this patient. This does not include time spent on separately reported billable procedures. Discharge Plan Discharge Clinical Impression: Tachycardia, Hypoxia, Shortness of breath Patient Disposition: Still a Patient Prescriptions: No Action (DME) Plan B Labs G2 blood glucose moniter starter kit See Rx Instructions .Route .MEDSUPPLY Qty: 1 0RF Rx Instructions: As directed (DME) medline basic face mask See Rx Instructions .Route .MEDSUPPLY Qty: 1 11RF Rx Instructions: As directed (DME) Medline ext cuff nitrile glove sterile pairs (medium) See Rx Instructions .Route .MEDSUPPLY Qty: 1 11RF Rx Instructions: As directed (DME) Medline wall mount sharps container 3 galloon red See Rx Instructions .Route .MEDSUPPLY Qty: 1 3RF Rx Instructions: As directed (DME) O2 Gas System Home Transfill Unit ([id number]) See Rx Instructions .Route .MEDSUPPLY Qty: 1 0RF Rx Instructions: As directed (DME) Washable Incontinence Pads (Medical Voucher Clerk Pad) 0 .Route .MEDSUPPLY Qty: 60 12RF Rx Instructions: As directed (DME) pen needle, diabetic [BD Ultra-Fine Micro Pen Needle] 32 gauge x 1/4 needle See Rx Instructions .Route Qty: 100 3RF Rx Instructions: As directed inject insulin one a day (DME) BEDSIDE COMMODE See Rx Instructions .Route .MEDSUPPLY Qty: 1 0RF Rx Instructions: As directed (DME) WIPES See Rx Instructions .Route .MEDSUPPLY Qty: 2 11RF Rx Instructions: As directed (DME) incontinence pad, liner, disp Pad See Rx Instructions .Route Qty: 180 12RF Rx Instructions: As directed mycophenolate mofetil 500 mg tablet 500 mg PO BID 30 Days Qty: 60 2RF (DME) MEDIUM PULL UPS See Rx Instructions .Route .MEDSUPPLY Qty: 90 11RF Rx Instructions: As directed (DME) bedside commode Kit See Rx Instructions .Route Qty: 1 0RF Rx Instructions: As directed (DME) GERMICIDAL DISPOSABLE WIPES See Rx Instructions .Route .MEDSUPPLY Qty: 2 12RF Rx Instructions: As directed (DME) HOSPITAL BED See Rx Instructions .Route .MEDSUPPLY Qty: 1 0RF Rx Instructions: As directed (DME) Mattress for hospital bed 0 .Route .MEDSUPPLY Qty: 1 0RF Rx Instructions: As directed (DME) medline alcohol prep pads 1.75x3 See Rx Instructions .Route .MEDSUPPLY Qty: 1 12RF Rx Instructions: As directed (DME) medlinecontour plus bladder control pads See Rx Instructions .Route .MEDSUPPLY Qty: 90 12RF Rx Instructions: As directed (DME) RECLINER See Rx Instructions .Route .MEDSUPPLY Qty: 1 0RF Rx Instructions: As directed (DME) Semi- Electric Hospital Bed with Mattress and Rails See Rx Instructions .Route .MEDSUPPLY Qty: 1 0RF Rx Instructions: As directed (DME) ULTRA THIN PADS See Rx Instructions .Route .MEDSUPPLY Qty: 30 12RF Rx Instructions: As directed (DME) ULTRASORB UNDER PADS See Rx Instructions .Route .MEDSUPPLY Qty: 1 11RF Rx Instructions: As directed insulin glargine [Lantus Solostar U-100 Insulin] 100 unit/mL (3 mL) insulin pen 10 unit subcut DAILY@1300 Qty: 15 3RF cholecalciferol (vitamin D3) 50 mcg (2,000 unit) capsule 50 mcg PO DAILY 90 Days Qty: 90 0RF aspirin [Adult Aspirin Regimen] 81 mg tablet,delayed release (DR/EC) 81 mg PO DAILY 90 Days Qty: 90 0RF losartan 50 mg tablet 50 mg PO DAILY 90 Days Qty: 90 0RF duloxetine 60 mg capsule,delayed release(DR/EC) 60 mg PO DAILY 90 Days Qty: 90 0RF gabapentin 300 mg capsule 300 mg PO BEDTIME 90 Days Qty: 90 0RF metformin 750 mg tablet extended release 24 hr 750 mg PO BID 90 Days Qty: 180 0RF sennosides-docusate sodium [Senna Plus] 8.6-50 mg tablet 2 tab-cap PO BEDTIME PRN (Reason: Constipation) Qty: 180 3RF glipizide 5 mg tablet 5 mg PO DAILY Qty: 90 1RF acetaminophen 500 mg tablet 1,000 mg PO TID PRN (Reason: Pain) atorvastatin 40 mg tablet 40 mg PO BEDTIME prednisone 20 mg tablet 40 mg PO DAILY Qty: 10 0RF magnesium 200 mg tablet 400 mg PO DAILY Qty: 60 0RF furosemide [Lasix] 40 mg tablet 40 mg PO DAILY Qty: 90 0RF nystatin 100,000 unit/mL suspension 5 ml PO TID 7 Days Qty: 105 0RF Rx Instructions: swish and swallow melatonin 3 mg capsule 3 mg PO BEDTIME PRN (Reason: sleep) Qty: 30 3RF (DME) Oxygen Home Use Kit See Rx Instructions .Route Rx Instructions: As directed Print Language: Ghanaian
--- NOTE | 2024-02-24 14:39 | ECG_ITS ---
Test Reason : sob Blood Pressure : / mmHG Vent. Rate : 130 BPM Atrial Rate : 130 BPM P-R Int : 148 ms QRS Dur : 080 ms QT Int : 296 ms P-R-T Axes : 040 -49 -04 degrees QTc Int : 435 ms Sinus tachycardia with Premature atrial complexes with Aberrant conduction Left anterior fascicular block T wave abnormality, consider anterior ischemia Abnormal ECG When compared with ECG of 10-FEB-2024 15:17, Premature ventricular complexes are no longer Present Aberrant conduction is now Present Nonspecific T wave abnormality, improved in Lateral leads Heart rate has increased Referred By: Ruth Mcadams Electronically Signed By:GIBSON CONROY
[2024-02-24 14:59] LABS: Basophils Absolute Auto 0.1 X10*3/uL (0.0-0.2); Basophils Percent Auto 0.7 % (0-2); Eosinophils Absolute Auto 3.8 X10*3/uL (0.0-0.4); Eosinophils Percent Auto 21.2 % (0-4); Hematocrit 33.3 % (37.0-47.0); Hemoglobin 10.4 g/dl (12.0-16.0); Imm Gran Abs Auto 0.04 X10*3/uL (0.00-0.03); Imm Gran Pct Auto 0.2 % (0.0-0.4); Lymphocytes Absolute Auto 4.2 X10*3/uL (1.2-4.9); Lymphocytes Percent Auto 23.3 % (20-40); MANUAL DIFF FLAG SCAN; Mean Corpuscular HGB Conc 31.2 g/dl (31.0-35.0); Mean Corpuscular Volume 86.5 fL (80.0-98.0); Mean Platelet Volume 9.1 fL (9.4-12.3); Monocytes Absolute Auto 1.1 X10*3/uL (0.1-1.2); Neutrophils Absolute Auto 8.8 x10*3/uL (2.0-8.3); Neutrophils Percent Auto 48.6 % (45-73); Platelet Count 765 X10*3/uL (160-400); Red Blood Count 3.85 X10*6/uL (4.20-5.50); Red Cell Distribution Width 15.3 % (11.0-16.0); SCAN SMEAR FLAG 1; White Blood Count 18.1 X10*3/uL (4.8-10.8)
[2024-02-24 15:00] LABS: VBG Base Excess 7.2 mmol/L; VBG HCO3 31 mmol/L (22-26); VBG pCO2 43 mmHg; VBG pH 7.46 (7.32-7.43); VBG pO2 47 mmHg
[2024-02-24 15:01] LABS: Venous Blood Gas Refer to POC result
--- NOTE | 2024-02-24 15:08 | PC.NURSE ---
coming from home for increased lethargy and feeling tired. patient 79% on room air, placed on oxymask 6L now 99%. tachypneic however patient states that she does not feel short of breath or any substantial increase in her work of breathing. second IV placed, labs obtained and sent. placed on lunchroom monitor sinus tach. awaiting xray
[2024-02-24 15:10] LABS: Alanine Aminotransferase 17 U/L (0-31); Albumin Level 3.5 g/dL (3.5-5.0); Alkaline Phosphatase 70 U/L (39-117); Anion Gap 14 (12-20); Aspartate Amino Transferase 16 U/L (5-31); Bilirubin Total 0.8 mg/dL (0.0-1.0); Blood Urea Nitrogen 8 mg/dL (9-16); Calcium 9.2 mg/dL (8.4-10.2); Carbon Dioxide 29 mmol/L (22-29); Chloride 102 mmol/L (96-108); Creatinine Clr Calc Pharmacy 47.2; Estimated Glomerular Filt Rate > 60; Glucose Random 160 mg/dL (60-115); Magnesium 1.6 mg/dL (1.6-2.6); Potassium 3.1 mmol/L (3.3-5.1); Sodium 142 mmol/L (135-145); Total Protein 7.1 g/dL (6.5-8.0)
[2024-02-24 15:17] LABS: Troponin-I High Sensitivity 5.2 ng/L (<3.5-17.0)
[2024-02-24 15:33] LABS: Influenza A PCR NEGATIVE (Negative); Influenza B PCR NEGATIVE (Negative); Resp Syncy Virus RNA Qual PCR NEGATIVE (Negative); SARS COV2 PCR INHOUSE NEGATIVE (Negative)
[2024-02-24 16:02] LABS: Appearance Urine Clear; Color Urine Yellow; Glucose Urine UA Negative (Negative); Leukocyte Esterase Urine Large (3+) (Negative); Nitrite Urine Negative (Negative); PH 5.5 (5.0-9.0); Specific Gravity - Urine <= 1.005 (1.005-1.025); UMIC TRIGGER UACC YES; Urine Blood Negative (Negative); Urine Ketones Negative (Negative); Urine Protein Negative (Neg-Trace)
[2024-02-24 16:07] LABS: SLIDE REVIEW VERIFIED
[2024-02-24 16:13] LABS: Bacteria Urine None Seen (None Seen); Hyaline Casts Urine 0-2 /LPF (0-2); RBC Urine 0-2 /HPF (0-2); UACC Culture Trigger YES
[2024-02-24 16:26] LABS: Lactic Acid 1.7 mmol/L (0.5-2.0)
[2024-02-24] MEDS: Magnesium Sulfate/H2O 2 GM/50 ML PIGGYBACK IV (17:09)
[2024-02-24] MEDS: methylPREDNISolone Sod Succ 125 MG/2 ML VIAL IVPUSH (17:09)
[2024-02-24] MEDS: cefTRIAXone sodium 1 GM in 0.9 % Sodium Chloride 50 ML IV (17:09)
[2024-02-24] MEDS: iohexoL 350 MG/ML 100 ML INFUS..BTL IV (17:55)
--- NOTE | 2024-02-24 18:34 | PC.NURSE ---
provided with sandwich and water, patient placed on nasal cannula at this time maintaining oxyen at 99%
[2024-02-24] MEDS: Azithromycin 500 MG in 0.9 % Sodium Chloride 250 ML 125 MG IV (19:51)
--- NOTE | 2024-02-24 20:16 | PC.NURSE ---
pt refused bed vidal wanted to use commode, assisted pt to bedside commode initially to commode sats remained 95% on 3L NC, when assisting back to stretcher sats down to 80s%. RT called to bedside. after resting and placed on oxymask sats back up to 96-97%. pt now on 3L NC and sats 96%. resting comfortably. educated need for bedrest, pt agreeable to [employer]. call pierre within reach.
--- NOTE | 2024-02-24 21:04 | PHA.MEDREC ---
Addendum entered by Betty Meyer RPh 02/24/24 21:15: Reviewed by [facility] Original Note: Pharmacy Consult ? Medication Reconciliation Pharmacy has completed the medication reconciliation. Patient was just discharged from [facility] 02-10-24 to 02-18-24. Called and spoke to patient's daughter to confirm med list. Daughter states nothing has changed with patient medications since being discharged. Utilized claims and discharge packet to confirm med list. Daughter did confirm Lantus is 10 units at bedtime.
--- NOTE | 2024-02-24 21:23 | P.HPHOSP_ITS ---
History of Present Illness Date of Service: 02/24/24 Chief Complaint: sob, hypoxia 83F PMH chronic hypoxic respiratory failure due to interstitial lung disease on 4L home O2 at rest 6-8L on exertion, COPD/asthma overlap syndrome, HFpEF, CVA, HTN, chronic thrombocytosis, and insulin-dependent type 2 diabetes who presented from home to the ED with?worsening SOB. patient was admitted to [facility] [place]/10/[place] - 02/18/24 for ild and chf, she was diuresed, lasix increased, and discharged on prednisone taper. her sob and hypoxia was at baseline and plan was for pulmonary rehab, however, family opted to discharge home. at home patient started to have worsening sob on exertion and then desaturated to 77% on O2, ?level. in ED patient's CTA negative for PE, showed persistent ILD findings. patient is tachypenic and tachycardic. hypoxia is at baseline. Review of Systems 2 Review of Systems: Yes all other systems are reviewed and are negative [facility] Medical History Pulmonary hypertension Hip pain, left Bilateral hip pain Respiratory tract infection Interstitial lung disease Viral pneumonia Pneumonitis Right lower quadrant abdominal pain UTI (urinary tract infection) Chest pain Mass on back H/O thrombocytosis COPD with acute exacerbation Pneumonia Weakness Constipation Opacities of both lungs present on chest x-ray Elevated WBC count Viral syndrome Asthma-COPD overlap syndrome Chronic respiratory failure Acute and chronic respiratory failure Generalized anxiety disorder Urinary incontinence CVA (cerebral vascular accident) Osteopenia Lumbar spinal stenosis Interstitial pulmonary fibrosis Insomnia Cystocele Hypertension Hypercholesterolemia Type 2 diabetes mellitus with hyperglycemia Surgical History Hx of section Social History Household Members: Significant Other Housing: Apartment Do you presently have visiting nurse or other home services: Yes Alcohol intake: former Patient Tobacco Use Status: Never used Tobacco Tobacco use type: Cigarette e-Cigarette/Vaping Use: Never Used Second Hand Smoke Exposure: No Advance Directives: Yes Advance Directives on File: Yes Advance Directives Date on File: 10/15/23 Do you have a plan to hurt others: No Plan service: No Current occupational status: retired Cognitive needs: Yes ([employer] at home) Hearing needs: No Vision needs: Yes Meds Allergies Allergy/AdvReac Type Severity Reaction Status Date / Time No Known Allergies Allergy Verified 02/24/24 14:41 Active Medications: Current Medications Aspirin (Aspirin Enteric Coated 81 Mg Tablet.) 81 mg PO DAILY [facility] Atorvastatin Calcium (Atorvastatin Calcium 40 Mg Tablet) 40 mg PO BEDTIME [facility] Duloxetine HCl (Duloxetine Hcl 60 Mg Capsule.) 60 mg PO DAILY [facility] Furosemide (Furosemide 40 Mg Tablet) 40 mg PO DAILY [facility]; Protocol Furosemide (Furosemide 40 Mg/4 Ml Vial) 40 mg IVPUSH ONCE ONE; Protocol Stop: 02/24/24 21:22 Gabapentin (Gabapentin 300 Mg Capsule) 300 mg PO BEDTIME [facility] Insulin Glargine (Insulin Glargine,Hum.Rec.Anlog 100 Unit/Ml 10 Ml Vial) 10 unit SUBCUT DAILY@1300 [facility] Losartan Potassium (Losartan Potassium 50 Mg Tablet) 50 mg PO DAILY [facility]; Protocol Magnesium Oxide (Magnesium Oxide 400 Mg Tablet) 400 mg PO BIDAC [facility] Non-Formulary Medication (Acetaminophen) 1,000 mg PO TID PRN PRN Reason: Pain. Non-Formulary Medication (Mycophenolate Mofetil) 500 mg PO BID [facility] Senna/Docusate Sodium (Sennosides/Docusate Sodium Tablet) 2 tab PO BEDTIME [facility] Tamsulosin HCl (Tamsulosin Hcl 0.4 Mg Capsule) 0.4 mg PO DAILY [facility] Vitamin D (Cholecalciferol (Vitamin D3) 25 Mcg Tablet) 50 mcg PO DAILY [facility] Home Medications ?Medication ?Instructions ?Recorded ?Confirmed ?Last Taken ?Type Oxygen Home Use 10/23/22 02/22/24 Unknown History acetaminophen 500 mg tablet 1,000 mg PO TID PRN Pain 10/08/23 02/24/24 02/10/24 01:00 History atorvastatin 40 mg tablet 40 mg PO BEDTIME 02/10/24 02/24/24 02/09/24 History magnesium oxide 400 mg (241.3 mg 400 mg PO BIDAC 02/24/24 02/24/24 Unknown History magnesium) tablet sennosides 8.6 mg-docusate sodium 2 tab PO BEDTIME 02/24/24 02/24/24 Unknown History 50 mg tablet (Stimulant Laxative Plus) tamsulosin 0.4 mg capsule 0.4 mg PO DAILY 02/24/24 02/24/24 Unknown History Physical Exam 2 Vital Signs and Narrative: Vital Signs: Last Vital Signs Temp 98.5 F 02/24/24 19:56 Pulse 110 H 02/24/24 19:56 Resp 24 H 02/24/24 19:56 BP 105/61 02/24/24 19:56 Pulse Ox 99 02/24/24 19:56 O2 Del Method Nasal Cannula 02/24/24 19:56 O2 Flow Rate 2 02/24/24 19:56 Oxygen Flow Rate 6 02/24/24 14:40 BMI result Body Mass Index 22.7 General: AO X 3, no acute distress, elderly frail Resp: Crackles, diminished bilateral, accessory muscles used CVS: S1,S2,rapid GI: soft, non tender, non distended Neuro: motor grossly intact, alert Psych: appropriate affect, appropriate insight Results Labs 02/24/24 14:50 02/24/24 14:50 Labs: Laboratory Results - last 24 hr 02/24/24 02/24/24 02/24/24 14:50 14:56 15:42 MCV 86.5 MCH 27.0 MCHC 31.2 RDW 15.3 Plt Count 765 H MPV 9.1 L Immature Gran % (Auto) 0.2 Neut % (Auto) 48.6 Lymph % (Auto) 23.3 [place]arton % (Auto) 6.0 Eos % (Auto) 21.2 H Baso % (Auto) 0.7 Lymph # (Auto) 4.2 [place]arton # (Auto) 1.1 Eos # (Auto) 3.8 H Baso # (Auto) 0.1 Abs Immat Gran (auto) 0.04 H Absolute Neuts (auto) 8.8 H Absolute Nucleated RBC 0.000 Nucleated RBC % (auto) 0.0 Smear Tech's Comments VERIFIED Hold Purple Top SEE NOTE Hold Blue Top SEE NOTE VBG pH 7.46 H VBG pCO2 43 VBG pO2 47 VBG HCO3 31 H VBG O2 Saturation 83.0 VBG Base Excess 7.2 Anion Gap 14 Estim Creat Clear Calc 47.2 Estimated GFR > 60 Random Glucose 160 H Lactic Acid Calcium 9.2 Magnesium 1.6 Total Bilirubin 0.8 AST 16 ALT 17 Alkaline Phosphatase 70 Troponin I High Sens 5.2 D Total Protein 7.1 Albumin 3.5 Urine Color Yellow Urine Appearance Clear Urine pH 5.5 Ur Specific [place] <= 1.005 Urine Protein Negative Urine Glucose (UA) Negative Urine Ketones Negative Urine Blood Negative Urine Nitrite Negative Ur Leukocyte Esterase Large (3+) H Urine RBC 0-2 Urine WBC 11-20 H Ur Squamous Epith Cells 3-5 Urine Bacteria None Seen Hyaline Casts 0-2 Influenza Type A (PCR) NEGATIVE Influenza Type B (PCR) NEGATIVE RSV RNA Qual (PCR) NEGATIVE SARS-CoV-2 RNA (RT-PCR) NEGATIVE 02/24/24 16:07 MCV MCH MCHC RDW Plt Count MPV Immature Gran % (Auto) Neut % (Auto) Lymph % (Auto) [place] % (Auto) Eos % (Auto) Baso % (Auto) Lymph # (Auto) [place] # (Auto) Eos # (Auto) Baso # (Auto) Abs Immat Gran (auto) Absolute Neuts (auto) Absolute Nucleated RBC Nucleated RBC % (auto) Smear Tech's Comments Hold Purple Top Hold Blue Top VBG pH VBG pCO2 VBG pO2 VBG HCO3 VBG O2 Saturation VBG Base Excess Anion Gap Estim Creat Clear Calc Estimated GFR Random Glucose Lactic Acid 1.7 Calcium Magnesium Total Bilirubin AST ALT Alkaline Phosphatase Troponin I High Sens Total Protein Albumin Urine Color Urine Appearance Urine pH Ur Specific [place] Urine Protein Urine Glucose (UA) Urine Ketones Urine Blood Urine Nitrite Ur Leukocyte Esterase Urine RBC Urine WBC Ur Squamous Epith Cells Urine Bacteria Hyaline Casts Influenza Type A (PCR) Influenza Type B (PCR) RSV RNA Qual (PCR) SARS-CoV-2 RNA (RT-PCR) Imaging Radiologist's Impressions: Impressions Chest X-Ray 02/24/24 14:39 IMPRESSION: Chronic interstitial lung disease. No acute airspace opacities. Electronically signed by: Rolando Lee MD 02/24/2024 03:38 PM EDT RP Chest CTA 02/24/24 17:37 IMPRESSION: * No acute pulmonary embolus. * Redemonstration of increased reticulation of the pulmonary parenchyma with traction bronchiectasis of the lung bases. There is diffuse background mosaic attenuation. These findings are concerning for interstitial lung disease. * Subcarinal mediastinal adenopathy, unchanged. Electronically signed by: Karen Mejía MD 02/24/2024 07:47 PM EDT RP Assessment and Plan (1) Shortness of breath: Status: Acute Plan 83F PMH chronic hypoxic respiratory failure due to interstitial lung disease on 4L home O2 at rest 6-8L on exertion, COPD/asthma overlap syndrome, HFpEF, CVA, HTN, chronic thrombocytosis, and insulin-dependent type 2 diabetes who presented from home to the ED with?worsening SOB Respiratory distress, chronic hypoxic respiratory failure due to ILD/COPD/severe persistent asthma and acute on chronic diastolic CHF Will give dose of IV Lasix and then continue on p.o. Lasix 40 mg daily IV steroids, pulmonary eval, CellCept Family not interested in pulmonary rehab Diabetes Basal bolus insulin History of CVA Continue aspirin Statin Hypertension Losartan Chronic thrombocytosis Stable DVT prophylaxis with Lovenox Full Code Patient with significant shortness of breath and severe underlying interstitial lung disease at risk for further decompensation therefore expected require at least 2 midnights inpatient Quality Stroke Does the patient have a stroke diagnosis?: No VTE Prior VTE?: No VTE Risk Level:: Medical - moderate - high VTE Device Contraindication: Treatment Not Indicated VTE Drug Contraindication: N/A - Med Ordered
[2024-02-24] MEDS: Furosemide 40 MG/4 ML VIAL IVPUSH (22:09)
[2024-02-24] MEDS: Potassium Chloride ER 20 MEQ TAB.ER.PRT 40 MEQ PO (22:10)
[2024-02-24] MEDS: 0.9 % Sodium Chloride Flush 3 ML SYRINGE IVFLUSH (22:44)
[2024-02-25 01:28] VITALS: PULSE 108
[2024-02-25 06:49] LABS: Hematocrit 33.5 % (37.0-47.0); Hemoglobin 10.3 g/dl (12.0-16.0); Mean Corpuscular HGB Conc 30.7 g/dl (31.0-35.0); Mean Corpuscular Hemoglobin 26.7 pg (27.0-33.0); Mean Corpuscular Volume 86.8 fL (80.0-98.0); Mean Platelet Volume 10.7 fL (9.4-12.3); Platelet Count 691 X10*3/uL (160-400); Red Blood Count 3.86 X10*6/uL (4.20-5.50); Red Cell Distribution Width 15.4 % (11.0-16.0); White Blood Count 11.5 X10*3/uL (4.8-10.8)
[2024-02-25 06:51] LABS: Anion Gap 14 (12-20); Blood Urea Nitrogen 12 mg/dL (9-16); Calcium 9.2 mg/dL (8.4-10.2); Carbon Dioxide 27 mmol/L (22-29); Chloride 101 mmol/L (96-108); Creatinine Clr Calc Pharmacy 44.5; Estimated Glomerular Filt Rate > 60; Glucose Fasting 271 mg/dL (60-99); Magnesium 2.3 mg/dL (1.6-2.6); Potassium 4.1 mmol/L (3.3-5.1); Sodium 138 mmol/L (135-145)
[2024-02-25 06:54] VITALS: BP 116/59; PULSE 90; RESP 15; TEMP 36.6; O2SAT 96
[2024-02-25 07:10] LABS: Glucose, Whole Blood 237 mg/dL (60-115)
[2024-02-25] MEDS: methylPREDNISolone Sod Succ 40 MG/ML VIAL IVPUSH (08:22)
[2024-02-25] MEDS: 0.9 % Sodium Chloride Flush 3 ML SYRINGE IVFLUSH (08:22)
[2024-02-25] MEDS: Insulin Lispro 100 UNIT/ML 3 ML VIAL SUBCUT ×2 (08:22→11:58)
[2024-02-25] MEDS: Enoxaparin Sodium 40 MG/0.4 ML SYRINGE SUBCUT (08:22)
[2024-02-25] MEDS: mycophenolate mofetiL 250 MG CAPSULE 500 MG PO (08:23)
[2024-02-25] MEDS: Aspirin Enteric Coated 81 MG TABLET.DR PO (08:23)
[2024-02-25 08:24] VITALS: BP 116/59
[2024-02-25] MEDS: Losartan Potassium 50 MG TABLET PO (08:24)
[2024-02-25] MEDS: Cholecalciferol (Vitamin D3) 25 MCG TABLET 50 MCG PO (08:24)
[2024-02-25] MEDS: DULoxetine HCl 60 MG CAPSULE.DR PO (08:24)
[2024-02-25] MEDS: Tamsulosin HCL 0.4 MG CAPSULE PO (08:24)
[2024-02-25] MEDS: Magnesium Oxide 400 MG TABLET PO (08:24)
[2024-02-25] MEDS: Furosemide 40 MG TABLET PO (08:24)
--- NOTE | 2024-02-25 09:10 | MHC.CM.PN ---
Addendum entered by Kristin Cesar 02/25/24 11:08: DP: PT HAS BEEN MEDICALLY CLEARED FOR DC HOME ([facility]) WITH RESUMPTION OF [facility] + [facility] AND NEW [facility] REFERRAL. BLS TRANSPORT BOOKED VIA [facility] WITH AUTH # FROM [facility] : #[id number]. RN/PROVIDER AWARE AND SON AT BEDSIDE AWARE OF TODAY'S DC. COMFORT + NOTIFIED. 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 SON AT BEDSIDE. PT LIVES WITH SPOUSE, HAS SOME SUPPORT FROM ADULT CHILDREN. 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 REFERRAL TO [facility] SUBMITTED. PT USES [facility] FOR MOBILITY AND HAS HOME 02 AT 6-8 L VIA [facility]. PT IS ACTIVE WITH [facility] + [facility] FOR SN AND P.T. +HCP ON FILE. PCP DR. MONZON. DP: PT IS DECLINING STR SHOULD THAT BE RECOMMENDED. PT WOULD LIKE TO RETURN HOME AND RESUME SERVICES WITH [facility] + [facility]. PT WILL NEED BLS TRANSPORT . CM WILL CONTINUE TO FOLLOW FOR ANY CHANGE TO DC PLAN/NEEDS.
[2024-02-25 10:47] LABS: Adenovirus PCR Not Detected (Not Detect.); Bordetella parapertussis PCR Not Detected (Not Detect.); Bordetella pertussis PCR Not Detected (Not Detect.); Chlamydia pneumoniae PCR Not Detected (Not Detect.); Coronavirus 229E PCR Not Detected (Not Detect.); Coronavirus HKU1 PCR Not Detected (Not Detect.); Coronavirus NL63 PCR Not Detected (Not Detect.); Coronavirus OC43 PCR Not Detected (Not Detect.); Human metapneumovirus PCR Not Detected (Not Detect.); Influenza A PCR Not Detected (Not Detect.); Influenza B PCR Not Detected (Not Detect.); Mycoplasma pneumoniae PCR Not Detected (Not Detect.); Parainfluenza 1 PCR Not Detected (Not Detect.); Parainfluenza 2 PCR Not Detected (Not Detect.); Parainfluenza 3 PCR Not Detected (Not Detect.); Parainfluenza 4 PCR Not Detected (Not Detect.); RSV PCR Not Detected (Not Detect.); Rhino/Enterovirus PCR Not Detected (Not Detect.)
[2024-02-25 10:59] LABS: SARS-CoV-2 PCR Not Detected (Not Detect.)
[2024-02-25 11:30] LABS: Glucose, Whole Blood 214 mg/dL (60-115)
--- NOTE | 2024-02-25 11:54 | PM.DS ---
DS: Providers Provider Date of Service: 02/25/24 Date of admission: 02/24/24 21:22 Date of discharge: 02/25/24 Primary care physician: Ciro Daniel MD Consults: 02/24/24 21:21 Consult to Pulmonology Routine Consulting [place] [facility] [facility] Reason for consultation: ild, recurrent admissions DS: Diagnosis Discharge Diagnosis (1) Shortness of breath: Status: Acute DS: Summary Hospital Course Hospital Course: Date of Service: 02/24/24 Chief Complaint: sob, hypoxia 83F PMH chronic hypoxic respiratory failure due to interstitial lung disease on 4L home O2 at rest 6-8L on exertion, COPD/asthma overlap syndrome, HFpEF, CVA, HTN, chronic thrombocytosis, and insulin-dependent type 2 diabetes who presented from home to the ED with?worsening SOB. [place] [facility] 02[place]18[place]24 for ild and chf, she was diuresed, lasix increased, and discharged on prednisone taper. her sob and hypoxia was at baseline and plan was for pulmonary rehab, however, family opted to discharge home. at home patient started to have worsening sob on exertion and then desaturated to 77% on O2, ?level. in ED patient's CTA negative for PE, showed persistent ILD findings. patient is tachypenic and tachycardic. hypoxia is at baseline. Hospital course. 83F PMH chronic hypoxic respiratory failure due to interstitial lung disease on 4L home O2 at rest 6-8L on exertion, COPD/asthma overlap syndrome, HFpEF, CVA, HTN, chronic thrombocytosis, and insulin-dependent type 2 diabetes who presented from home to the ED with?worsening SOB, and diagnosed to have respiratory distress, chronic hypoxic respiratory failure due to ILD/COPD/severe persistent asthma and acute on chronic diastolic CHF Treated with IV Lasix, IV steroids and updraft treatment patient's symptoms rapidly resolved, this morning patient is on 2 L of baseline oxygen, therefore will discharge home with recommendation to continue home dose of Lasix and updraft, family at bedside agreeable that patient is stable for discharge, continuous pillowcase cutter arranged for home VNA services for nursing and physical therapy, also information provided to call for home health aide. Patient on admission also noted to have acute hypokalemia repleted and normalized. Patient recently finished course of prednisone since no acute wheeze or rhonchi noted will hold off on further steroid treatment. In regard to Diabetes recommend to follow diabetic diet and resume all home medications, for history of CVA continue aspirin statin and good blood pressure control. Chronic thrombocytosis noted to have stable platelet count. Time Attestation Discharge Coordination Time (in mins): 36 Quality: Safe Use of Opioids Does Pt have an Active Cancer Diagnosis on the Problem List?: No Quality: Stroke Does the patient have a stroke diagnosis?: No Physical Exam Vital Signs: Vital Signs: Last Vital Signs Temp 97.8 F 02/25/24 06:54 Pulse 90 02/25/24 06:54 Resp 15 02/25/24 06:54 BP 116/59 L 02/25/24 08:24 Pulse Ox 96 02/25/24 06:54 O2 Del Method Nasal Cannula 02/25/24 06:54 O2 Flow Rate 2 02/25/24 06:54 Oxygen Flow Rate 6 02/24/24 14:40 BMI result Body Mass Index 22.7 Const: Other: General awake alert x3, in no acute distress. Neck supple no JVD. CVS regular rate rhythm, Respiratory lungs bibasilar dry crackles ,no wheeze, no rhonchi. Gastrointestinal abdomen soft, non tender, bowel sounds audible Extremities no edema. Neuro non focal Skin no rash Psych appropriate affect DS: Data Data Completed and Pending Completed studies during hospitalization [Text1]: Procedures Assistance with Respiratory Ventilation, Less than 24 Consecutive Hours, Continuous Positive Airway Pressure (02/10/24) Labs on day of discharge: Laboratory Results - last 24 hr 02/24/24 02/24/24 02/24/24 14:50 14:56 15:42 WBC 18.1 H RBC 3.85 L Hgb 10.4 L Hct 33.3 L MCV 86.5 MCH 27.0 MCHC 31.2 RDW 15.3 Plt Count 765 H MPV 9.1 L Immature Gran % (Auto) 0.2 Neut % (Auto) 48.6 Lymph % (Auto) 23.3 [place] % (Auto) 6.0 Eos % (Auto) 21.2 H Baso % (Auto) 0.7 Lymph # (Auto) 4.2 [place] # (Auto) 1.1 Eos # (Auto) 3.8 H Baso # (Auto) 0.1 Abs Immat Gran (auto) 0.04 H Absolute Neuts (auto) 8.8 H Absolute Nucleated RBC 0.000 Nucleated RBC % (auto) 0.0 Smear Tech's Comments VERIFIED Hold Purple Top SEE NOTE Hold Blue Top SEE NOTE VBG pH 7.46 H VBG pCO2 43 VBG pO2 47 VBG HCO3 31 H VBG O2 Saturation 83.0 VBG Base Excess 7.2 Sodium 142 Potassium 3.1 L Chloride 102 Carbon Dioxide 29 Anion Gap 14 BUN 8 L Creatinine 0.66 Estim Creat Clear Calc 47.2 Estimated GFR > 60 POC Glucose Random Glucose 160 H Fasting Glucose Lactic Acid Calcium 9.2 Magnesium 1.6 Total Bilirubin 0.8 AST 16 ALT 17 Alkaline Phosphatase 70 Troponin I High Sens 5.2 D Total Protein 7.1 Albumin 3.5 Urine Color Yellow Urine Appearance Clear Urine pH 5.5 Ur Specific [place] <= 1.005 Urine Protein Negative Urine Glucose (UA) Negative Urine Ketones Negative Urine Blood Negative Urine Nitrite Negative Ur Leukocyte Esterase Large (3+) H Urine RBC 0-2 Urine WBC 11-20 H Ur Squamous Epith Cells 3-5 Urine Bacteria None Seen Hyaline Casts 0-2 Respiratory Panel Malik Adenovirus (Rapid PCR) B.pert (TEM-PCR) B.parapertussis DNA PCR C. pneumoniae DNA (PCR) Coronavirus OC43 (PCR) Coronavirus HKU1 (PCR) Coronavirus 229E (PCR) Coronavirus NL63 (PCR) Human Metapneumovir PCR Influenza A (RT-PCR) Influenza Type A (PCR) NEGATIVE Influenza B (RT-PCR) Influenza Type B (PCR) NEGATIVE M. pneumoniae (PCR) Parainfluenza 1 (PCR) Parainfluenza 2 (PCR) Parainfluenza 3 (PCR) Parainfluenza 4 (PCR) RSV (PCR) RSV RNA Qual (PCR) NEGATIVE Entero/Rhino (PCR) SARS-CoV-2 RNA (RT-PCR) NEGATIVE 02/24/24 02/25/24 02/25/24 16:07 05:17 06:54 WBC 11.5 H RBC 3.86 L Hgb 10.3 L Hct 33.5 L MCV 86.8 MCH 26.7 L MCHC 30.7 L RDW 15.4 Plt Count 691 H MPV 10.7 Immature Gran % (Auto) Neut % (Auto) Lymph % (Auto) [place] % (Auto) Eos % (Auto) Baso % (Auto) Lymph # (Auto) [place] # (Auto) Eos # (Auto) Baso # (Auto) Abs Immat Gran (auto) Absolute Neuts (auto) Absolute Nucleated RBC 0.000 Nucleated RBC % (auto) 0.0 Smear Tech's Comments Hold Purple Top Hold Blue Top VBG pH VBG pCO2 VBG pO2 VBG HCO3 VBG O2 Saturation VBG Base Excess Sodium 138 Potassium 4.1 D Chloride 101 Carbon Dioxide 27 Anion Gap 14 BUN 12 Creatinine 0.70 Estim Creat Clear Calc 44.5 Estimated GFR > 60 POC Glucose 237 H Random Glucose Fasting Glucose 271 H Lactic Acid 1.7 Calcium 9.2 Magnesium 2.3 Total Bilirubin AST ALT Alkaline Phosphatase Troponin I High Sens Total Protein Albumin Urine Color Urine Appearance Urine pH Ur Specific [place] Urine Protein Urine Glucose (UA) Urine Ketones Urine Blood Urine Nitrite Ur Leukocyte Esterase Urine RBC Urine WBC Ur Squamous Epith Cells Urine Bacteria Hyaline Casts Respiratory Panel Malik See Note Adenovirus (Rapid PCR) Not Detected B.pert (TEM-PCR) Not Detected B.parapertussis DNA PCR Not Detected C. pneumoniae DNA (PCR) Not Detected Coronavirus OC43 (PCR) Not Detected Coronavirus HKU1 (PCR) Not Detected Coronavirus 229E (PCR) Not Detected Coronavirus NL63 (PCR) Not Detected Human Metapneumovir PCR Not Detected Influenza A (RT-PCR) Not Detected Influenza Type A (PCR) Influenza B (RT-PCR) Not Detected Influenza Type B (PCR) M. pneumoniae (PCR) Not Detected Parainfluenza 1 (PCR) Not Detected Parainfluenza 2 (PCR) Not Detected Parainfluenza 3 (PCR) Not Detected Parainfluenza 4 (PCR) Not Detected RSV (PCR) Not Detected RSV RNA Qual (PCR) Entero/Rhino (PCR) Not Detected SARS-CoV-2 RNA (RT-PCR) Not Detected 02/25/24 11:17 WBC RBC Hgb Hct MCV MCH MCHC RDW Plt Count MPV Immature Gran % (Auto) Neut % (Auto) Lymph % (Auto) [place] % (Auto) Eos % (Auto) Baso % (Auto) Lymph # (Auto) [place] # (Auto) Eos # (Auto) Baso # (Auto) Abs Immat Gran (auto) Absolute Neuts (auto) Absolute Nucleated RBC Nucleated RBC % (auto) Smear Tech's Comments Hold Purple Top Hold Blue Top VBG pH VBG pCO2 VBG pO2 VBG HCO3 VBG O2 Saturation VBG Base Excess Sodium Potassium Chloride Carbon Dioxide Anion Gap BUN Creatinine Estim Creat Clear Calc Estimated GFR POC Glucose 214 H Random Glucose Fasting Glucose Lactic Acid Calcium Magnesium Total Bilirubin AST ALT Alkaline Phosphatase Troponin I High Sens Total Protein Albumin Urine Color Urine Appearance Urine pH Ur Specific [place] Urine Protein Urine Glucose (UA) Urine Ketones Urine Blood Urine Nitrite Ur Leukocyte Esterase Urine RBC Urine WBC Ur Squamous Epith Cells Urine Bacteria Hyaline Casts Respiratory Panel Malik Adenovirus (Rapid PCR) B.pert (TEM-PCR) B.parapertussis DNA PCR C. pneumoniae DNA (PCR) Coronavirus OC43 (PCR) Coronavirus HKU1 (PCR) Coronavirus 229E (PCR) Coronavirus NL63 (PCR) Human Metapneumovir PCR Influenza A (RT-PCR) Influenza Type A (PCR) Influenza B (RT-PCR) Influenza Type B (PCR) M. pneumoniae (PCR) Parainfluenza 1 (PCR) Parainfluenza 2 (PCR) Parainfluenza 3 (PCR) Parainfluenza 4 (PCR) RSV (PCR) RSV RNA Qual (PCR) Entero/Rhino (PCR) SARS-CoV-2 RNA (RT-PCR) Preliminary micro results at discharge 02/24/24 15:42 Urine Culture - Preliminary Urine clean catch - Clean Catch Midstream Culture too young to evaluate. Discharge Plan Discharge Anticipated Discharge Date/Time: 02/25/24 11:32 Patient Disposition: Home Health Service Discharge Diagnosis: Acute on chronic diastolic congestive heart failure Acute respiratory distress Referrals: [facility] [Outside] - 3-5 Days ([facility]UMPT[facility] OF HOME SERVICES FOR PHYSICAL THERAPY AND GROUP HOME) Ciro Daniel MD [Primary Care Provider] - 1 Week Discharge Medications: Continued (DME) evencare G2 blood glucose moniter starter kit See Rx Instructions .Route .MEDSUPPLY Qty: 1 0RF Rx Instructions: As directed (DME) medline basic face mask See Rx Instructions .Route .MEDSUPPLY Qty: 1 11RF Rx Instructions: As directed (DME) Medline ext cuff nitrile glove sterile pairs (medium) See Rx Instructions .Route .MEDSUPPLY Qty: 1 11RF Rx Instructions: As directed (DME) Medline wall mount sharps container 3 galloon red See Rx Instructions .Route .MEDSUPPLY Qty: 1 3RF Rx Instructions: As directed (DME) O2 Gas System Home Transfill Unit ([id number]) See Rx Instructions .Route .MEDSUPPLY Qty: 1 0RF Rx Instructions: As directed (DME) Washable Incontinence Pads (Inspector Scales Pad) 0 .Route .MEDSUPPLY Qty: 60 12RF Rx Instructions: As directed (DME) pen needle, diabetic [BD Ultra-Fine Micro Pen Needle] 32 gauge x 1/4 needle See Rx Instructions .Route Qty: 100 3RF Rx Instructions: As directed inject insulin one a day (DME) BEDSIDE COMMODE See Rx Instructions .Route .MEDSUPPLY Qty: 1 0RF Rx Instructions: As directed (DME) WIPES See Rx Instructions .Route .MEDSUPPLY Qty: 2 11RF Rx Instructions: As directed (DME) incontinence pad, liner, disp Pad See Rx Instructions .Route Qty: 180 12RF Rx Instructions: As directed mycophenolate mofetil 500 mg tablet 500 mg PO BID 30 Days Qty: 60 2RF (DME) MEDIUM PULL UPS See Rx Instructions .Route .MEDSUPPLY Qty: 90 11RF Rx Instructions: As directed (DME) bedside commode Kit See Rx Instructions .Route Qty: 1 0RF Rx Instructions: As directed (DME) GERMICIDAL DISPOSABLE WIPES See Rx Instructions .Route .MEDSUPPLY Qty: 2 12RF Rx Instructions: As directed (DME) HOSPITAL BED See Rx Instructions .Route .MEDSUPPLY Qty: 1 0RF Rx Instructions: As directed (DME) Mattress for hospital bed 0 .Route .MEDSUPPLY Qty: 1 0RF Rx Instructions: As directed (DME) medline alcohol prep pads 1.75x3 See Rx Instructions .Route .MEDSUPPLY Qty: 1 12RF Rx Instructions: As directed (DME) medlinecontour plus bladder control pads See Rx Instructions .Route .MEDSUPPLY Qty: 90 12RF Rx Instructions: As directed (DME) RECLINER See Rx Instructions .Route .MEDSUPPLY Qty: 1 0RF Rx Instructions: As directed (DME) Semi- Electric Hospital Bed with Mattress and Rails See Rx Instructions .Route .MEDSUPPLY Qty: 1 0RF Rx Instructions: As directed (DME) ULTRA THIN PADS See Rx Instructions .Route .MEDSUPPLY Qty: 30 12RF Rx Instructions: As directed (DME) ULTRASORB UNDER PADS See Rx Instructions .Route .MEDSUPPLY Qty: 1 11RF Rx Instructions: As directed insulin glargine [Lantus Solostar U-100 Insulin] 100 unit/mL (3 mL) insulin pen 10 unit subcut DAILY@1300 Qty: 15 3RF cholecalciferol (vitamin D3) 50 mcg (2,000 unit) capsule 50 mcg PO DAILY 90 Days Qty: 90 0RF aspirin [Adult Aspirin Regimen] 81 mg tablet,delayed release (DR/EC) 81 mg PO DAILY 90 Days Qty: 90 0RF losartan 50 mg tablet 50 mg PO DAILY 90 Days Qty: 90 0RF duloxetine 60 mg capsule,delayed release(DR/EC) 60 mg PO DAILY 90 Days Qty: 90 0RF gabapentin 300 mg capsule 300 mg PO BEDTIME 90 Days Qty: 90 0RF metformin 750 mg tablet extended release 24 hr 750 mg PO BID 90 Days Qty: 180 0RF glipizide 5 mg tablet 5 mg PO DAILY Qty: 90 1RF acetaminophen 500 mg tablet 1,000 mg PO TID PRN (Reason: Pain) sennosides-docusate sodium [Stimulant Laxative Plus] 8.6-50 mg tablet 2 tab PO BEDTIME tamsulosin 0.4 mg capsule 0.4 mg PO DAILY magnesium oxide 400 mg (241.3 mg magnesium) tablet 400 mg PO BIDAC atorvastatin 40 mg tablet 40 mg PO BEDTIME furosemide [Lasix] 40 mg tablet 40 mg PO DAILY Qty: 90 0RF nystatin 100,000 unit/mL suspension 5 ml PO TID 7 Days Qty: 105 0RF Rx Instructions: swish and swallow melatonin 3 mg capsule 3 mg PO BEDTIME PRN (Reason: sleep) Qty: 30 3RF (DME) Oxygen Home Use Kit See Rx Instructions .Route Rx Instructions: As directed Discharge Orders: Discharge Order (Routine); Ordered 02/25/24 Ordered By: Cortes Kumar Diet: Diabetic diet Activity on Discharge: As tolerated Stand Alone Forms: Patient Portal Discharge page Print Language: Maltese Care Plan Goals: Respiratory distress resolved likely due to acute CHF follow low-salt diet and restrict fluid intake to 1.2-1.5 L a day Continue all home medications as before Health Concerns: Chronic respiratory failure continue home O2 Plan of Treatment: Outpatient follow-up with primary care physician call for appointment. Assessment: As above
[2024-02-25] MEDS: Insulin Glargine,Hum.rec.anlog 100 UNIT/ML 10 ML VIAL 10 UNIT SUBCUT (11:58)
--- NOTE | 2024-02-25 13:21 | P.F2F_ITS ---
Service Date Service Date: 02/25/24 Encounter Date of encounter: 02/25/24 Reasons for Services Signs and symptoms assessed: Shortness of breath/home O2 dependent Reason for longterm: CV/CP assess and/or care, diabetic teaching and teach disease management Reason for physical therapy: home safety and mobility Homebound: Leaving the home is medically contraindicated at this time without the asist of a device and/or another person due th the listed conditions above and below. Reason homebound: shortness of breath with minimal effort Certification: Based on the above findings, I certify that this patient is confined to the home and needs intermittent longterm care, physical therapy and/or speech therapy, or continues to need occupational therapy. The patient is under my care, and I have initiated the establishment of the plan of care. The patient will be followed by a physician who will periodically review the plan of care. Time Spent With Patient Time: Total time managing care of this patient today ____ minutes.
== END 2024-02-25 13:39 | disposition home health service (06) | DRG 291 ==
LOC: HO.ED 15:53 → HO.EDOVER 21:29 → HO.S3 21:37
PROVIDERS: Physician Assistant Medical; Admitting Provider Internal Medicine; Emergency Provider Emergency Medicine; PCP Internal Medicine; Visit Provider Hospitalist
DX: I11.0 Hypertensive heart disease with heart failure (principal); I50.33 Acute on chronic diastolic (congestive) heart failure; J84.9 Interstitial pulmonary disease, unspecified; J96.11 Chronic respiratory failure with hypoxia; J44.9 Chronic obstructive pulmonary disease, unspecified; E11.9 Type 2 diabetes mellitus without complications; J45.50 Severe persistent asthma, uncomplicated; E87.6 Hypokalemia; D75.839 Thrombocytosis, unspecified; Z20.822 Contact with and (suspected) exposure to COVID-19; Z86.73 Personal history of transient ischemic attack (TIA), and cerebral infarction without residual deficits; Z79.4 Long term (current) use of insulin; Z79.82 Long term (current) use of aspirin; Z79.84 Long term (current) use of oral hypoglycemic drugs; Z79.899 Other long term (current) drug therapy
CPT/HCPCS: 0241U; 36415; 71045; 71275; 80048; 80053; 81001; 81003; 82803; 82947; 83605; 83735; 84484; 85025; 85027; 87040; 87086; 87633; 93005; 99285; J0456; J0696; J1650; J1940; J2919; J3475; Q9967

== ENCOUNTER → 2024-02-24 21:22 | Outpatient (BNV) | payer OTHER, SELFPAY | PROVIDERS: Admitting Provider Internal Medicine; Emergency Provider Emergency Medicine; PCP Internal Medicine; Visit Provider Internal Medicine | DX: J96.11 Chronic respiratory failure with hypoxia (principal) | CPT/HCPCS: 99223; 99239; G0180 ==

== ENCOUNTER → 2024-03-01 23:59 | Outpatient (BNV) | payer OTHER, SELFPAY | PROVIDERS: PCP Internal Medicine; Visit Provider Internal Medicine | DX: J45.51 Severe persistent asthma with (acute) exacerbation (principal); J44.9 Chronic obstructive pulmonary disease, unspecified; I50.42 Chronic combined systolic (congestive) and diastolic (congestive) heart failure; E11.9 Type 2 diabetes mellitus without complications | CPT/HCPCS: G0180 ==

== ENCOUNTER 2024-03-09 10:48 | Observation (INO) | payer OTHER, SELFPAY ==
--- NOTE | ~2024-03-09 | XR_ITS ---
EXAMINATION: XR CHEST CLINICAL INFORMATION: Shortness of breath. Hypoxia. Respiratory failure. COMPARISON: CT chest February 24, 2024. Chest x-ray February 24, 2024 TECHNIQUE: 2 views of the chest were obtained. FINDINGS: Chronic increased interstitial lung markings, known interstitial lung disease. No significant change since February 24, 2024. No acute airspace opacities. No pleural effusion or pneumothorax. Surgical clip left upper quadrant of abdomen. Chronic soft tissue calcification adjacent to the right humeral head. XR/XR chest 2V IMPRESSION: Chronic interstitial lung disease. No acute airspace disease. Electronically signed by: Rolando Lee MD 03/09/2024 03:03 PM EDT
--- NOTE | ~2024-03-09 | CT_ITS ---
EXAMINATION: CT angio head neck stroke CLINICAL INFORMATION: Cerebrovascular accident. COMPARISON: CT head 03/10/2024. TECHNIQUE: Assistant Professor Of Biology images were obtained. A CT angiogram of the head and neck was performed in the arterial phase after the intravenous administration of 70 mL Omnipaque 350. Delayed postcontrast images of the head were also obtained. 3D images were processed on an independent workstation under concurrent supervision. Arterial stenoses are measured in accordance with NASCET criteria or similar method if applicable. This CT examination was performed using dose optimization techniques as appropriate, including one or more of the following: Automated exposure control, iterative reconstruction, and adjustment of technique factors (mA and/or kVp) according to patient size (this includes techniques or standardized protocols for targeted exams where dose is matched to indication/reason for exam). Fleischner Society criteria for the followup of incidental pulmonary nodules was implemented if appropriate. Total exam dose-length product 1395 mGy-cm FINDINGS: Head: Postcontrast images reveal no abnormal intracranial mass or enhancement. There is no intracranial mass effect or midline shift. Lateral and third ventricles are normal. No hydrocephalus. Copeland-white matter differentiation is preserved and there is no evidence of an acute territorial infarct. The calvarium and skull base are intact. There are bilateral mastoid effusions. No active paranasal sinus disease. A few small retention cysts are visualized within the right frontal sinus and right anterior ethmoid air cells. CT angiogram neck: The aortic arch apex is normal. Origins of the major aortic branches are widely patent. Common carotid arteries and the carotid bifurcations are normal. No stenosis of the extracranial internal carotid arteries. The cervical segments of the vertebral arteries are patent. CT angiogram head: The intracranial internal carotid arteries are normal. The intradural vertebral artery segments and basilar artery are normal. Anterior, middle, and posterior cerebral artery complexes are normal. No intracranial large vessel occlusion. No identifiable aneurysm or high flow vascular lesion. Other: Soft tissues of the neck including the thyroid gland are normal. No pathologically enlarged cervical lymph nodes. Coarse interstitial thickening is partially visualized within the apices of both lungs with a peripheral predominant distribution. No acute osseous finding. Specifically no worrisome lytic or blastic osseous lesion. CT/CT angio head neck stroke IMPRESSION: Normal CT angiogram of the head and neck in that there is no stenosis of the cervical carotid or vertebral arteries. No intracranial large vessel occlusion. No evidence of acute territorial infarct or hemorrhage. No abnormal intracranial mass or enhancement. Coarse interstitial thickening is partially visualized within the apices of both lungs consistent with this patient's known history of interstitial lung disease. Electronically signed by: Farzad Thompson MD 03/10/2024 08:07 PM EDT RP
--- NOTE | ~2024-03-09 | CT_ITS ---
EXAMINATION: CT HEAD WITHOUT CONTRAST (STROKE PROTOCOL) CLINICAL INFORMATION: Stroke protocol. COMPARISON: None available. TECHNIQUE: Contiguous axial imaging was performed from the skull base to vertex without intravenous administration of contrast. Coronal and sagittal reformatted images are performed at CT scanner This CT examination was performed using dose optimization techniques as appropriate, variously including the following: *Automated exposure control *Adjustment of mA and/or kV according to patient size (this includes techniques or standardized protocols for targeted exams where dose is matched to indication/reason for exam; i.e. extremities or head) *Use of iterative reconstruction technique DLP: 659 mGy-cm FINDINGS: There is no evidence of acute intracranial hemorrhage or territorial infarction. No abnormal mass-effect or midline shift is seen. Copeland to white matter differentiation is well preserved. No extra-axial fluid collections are identified. There is generalized global volume loss. There is moderate prominence of the ventricles and the sulci . There is moderate hypodensity of the periventricular white matter due to chronic small vessel ischemic disease. There are vascular calcifications of the internal carotid arteries bilaterally. There is no osseous abnormality. The mastoid air cells and visualized portions of the paranasal sinuses are well-aerated. CT/CT head for stroke IMPRESSION: No acute intracranial pathology. This critical result was discussed with BREE Molina at 7:41 PM, 03/10/2024 .It was ascertained that the content and urgency of the report was understood at the time of direct communication. Electronically signed by: Rolando Lee MD 03/10/2024 07:42 PM EDT
--- NOTE | ~2024-03-09 | MR_ITS ---
MRI OF THE BRAIN WITHOUT IV CONTRAST INDICATION: Possible stroke. COMPARISON: CTA head and neck and head CT March 10, 2024. TECHNIQUE: Multiplanar multisequence MR imaging of the brain was obtained without IV contrast. FINDINGS: There is no hydrocephalus, extra-axial surface collection, or herniation. Moderate T2 signal changes within the supratentorial white matter with some foci oriented perpendicular to the lateral ventricular margins. Findings could be the sequela of chronic microangiopathy and/or demyelinating disease which can be clinically correlated. If there is clinical concern for active demyelination, postcontrast imaging can be obtained. There is moderate chronic microangiopathy. The major flow voids at the skull base are preserved. There is no acute infarct on diffusion-weighted imaging. There is no intracranial hemorrhage on the gradient recalled echo acquisition. The midline structures are normal. The cerebellar tonsils are normally positioned. The cerebellum and brainstem are normal. The craniocervical junction is normal. Osseous marrow signal intensity is homogenous. The visualized soft tissues are unremarkable. Large bilateral mastoid effusions and partial opacification of the middle ear cavities bilaterally. MR/MR head/brain wo con IMPRESSION: * No acute intracranial findings. No acute infarcts. * Moderate T2 signal changes within the supratentorial white matter with some foci oriented perpendicular to the lateral ventricular margins. Findings could be the sequela of chronic microangiopathy and/or demyelinating disease which can be clinically correlated. If there is clinical concern for active demyelination, postcontrast imaging can be obtained. * Large bilateral mastoid effusions and partial opacification of the middle ear cavities bilaterally. Electronically signed by: Juventino Sandhu MD 03/11/2024 01:35 PM EDT
--- NOTE | ~2024-03-09 | XR_ITS ---
EXAMINATION: XR CHEST CLINICAL INFORMATION: Abnormal chest sounds, crackles COMPARISON: Chest x-ray March 09, 2024. CT of the chest February 24, 2024 TECHNIQUE: Frontal portable view of the chest was obtained. 1945 hours FINDINGS: Chronic increased interstitial lung markings similar to prior exams. No focal dense consolidation. No pleural effusion or pneumothorax. Heart size is enlarged. XR/XR chest 1V IMPRESSION: Chronic increased interstitial lung markings similar to prior exams. No focal dense consolidation. Electronically signed by: Rolando Lee MD 03/10/2024 08:55 PM EDT
[2024-03-09 10:55] VITALS: BP 142/78; PULSE 115; PULSE 99; RESP 17; TEMP 36.5; O2SAT 80; O2SAT 99; BMI 21.6
--- NOTE | 2024-03-09 11:00 | ED_ITS ---
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 States she lives at home with her . No known sick contacts. Denies fever, chills, sore throat, cough, hemoptysis, LE pain/ swelling. nursing surgical services director utilized throughout visit to communicate with patient. Related Data Home Medications ?Medication ?Instructions ?Recorded ?Confirmed Oxygen Home Use 10/23/22 02/28/24 acetaminophen 500 mg tablet 1,000 mg PO TID PRN Pain 10/08/23 02/28/24 atorvastatin 40 mg tablet 40 mg PO BEDTIME 02/10/24 02/28/24 magnesium oxide 400 mg (241.3 mg 400 mg PO BIDAC 02/24/24 02/28/24 magnesium) tablet sennosides 8.6 mg-docusate sodium 2 tab PO BEDTIME 02/24/24 02/28/24 50 mg tablet (Stimulant Laxative Plus) tamsulosin 0.4 mg capsule 0.4 mg PO DAILY 02/24/24 02/28/24 loratadine 10 mg tablet 10 mg PO DAILY 03/09/24 Previous Rx's ?Medication ?Instructions ?Recorded [place] G2 blood glucose moniter #1 ea 10/02/21 starter kit Medline ext cuff nitrile glove #1 ea 12/03/21 sterile pairs (medium) Medline wall mount sharps #1 ea 12/03/21 container 3 galloon red medline basic face mask #1 ea 12/03/21 O2 Gas System Home Transfill Unit #1 ea 11/23/22 ([id number]) Washable Incontinence Pads (Guest Relations Receptionist #60 ea 07/09/23 Pad) pen needle, diabetic 32 gauge x #100 ea 08/18/23/ (BD Ultra-Fine Micro Pen Needle) melatonin 3 mg capsule 3 mg PO BEDTIME PRN sleep #30 caps 10/19/23 BEDSIDE COMMODE #1 ea 10/26/23 WIPES #2 ea 10/26/23 incontinence pad, liner, disp #180 ea 12/09/23 GERMICIDAL DISPOSABLE WIPES #2 ea 01/06/24 HOSPITAL BED #1 ea 01/06/24 MEDIUM PULL UPS #90 ea 01/06/24 Mattress for hospital bed #1 ea 01/06/24 RECLINER #1 ea 01/06/24 Semi- Electric Hospital Bed with #1 ea 01/06/24 Mattress and Rails ULTRA THIN PADS #30 ea 01/06/24 ULTRASORB UNDER PADS #1 ea 01/06/24 commode (bedside commode) #1 ea 01/06/24 medline alcohol prep pads 1.75x3 #1 ea 01/06/24 medlinecontour plus bladder #90 ea 01/06/24 control pads insulin glargine 100 unit/mL (3 10 unit (0.1 mL) subcut DAILY@1300 01/14/24 mL) subcutaneous pen (Lantus #15 mL Solostar U-100 Insulin) nystatin 100,000 unit/mL oral 5 ml PO TID 7 days #105 mL 01/31/24 suspension aspirin 81 mg tablet,delayed 81 mg PO DAILY 90 days #90 tabs 02/04/24 release (Adult Aspirin Regimen) cholecalciferol (vitamin D3) 50 50 mcg PO DAILY 90 days #90 caps 02/04/24 mcg (2,000 unit) capsule duloxetine 60 mg capsule,delayed 60 mg PO DAILY 90 days #90 caps 02/04/24 release gabapentin 300 mg capsule 300 mg PO BEDTIME 90 days #90 caps 02/04/24 glipizide 5 mg tablet 5 mg PO DAILY #90 tabs 02/04/24 losartan 50 mg tablet 50 mg PO DAILY 90 days #90 tabs 02/04/24 metformin 750 mg tablet,extended 750 mg PO BID 90 days #180 tabs 02/04/24 release 24 hr furosemide 40 mg tablet (Lasix) 40 mg PO DAILY #90 tabs 02/18/24 mycophenolate mofetil 500 mg tablet 500 mg PO BID 30 days #60 tabs 03/05/24 Allergies Allergy/AdvReac Type Severity Reaction Status Date / Time No Known Allergies Allergy Verified 03/09/24 10:57 Review of Systems 2 Review of Systems: Constitutional: No fever, chills, fatigue, night sweats, weight changes ENT/Mouth: No ear pain, hearing loss, nasal congestion, sinus pain, rhinorrhea, sore throat Eyes: No eye pain, swelling, redness, vision changes, discharge Cardio: No VEGA, orthopnea, peripheral edema, +palpitations, +elevated HR, +chest pain Pulm: No SOB, cough, sputum, wheezing, hemoptysis, +dyspnea GI: No nausea, vomiting, hematemesis, abdominal pain, diarrhea, constipation, hematochezia, melena : No irregular bleeding, dysuria, frequency, urgency, hesitancy, hematuria, flank pain, urinary flow changes, urinary incontinence or retention MSK: No back pain, neck pain, joint pain, myalgias Skin: No lesions, rashes Neuro: No weakness, numbness, paresthesias, LOC, dizziness, headache Psych: No anxiety/panic, depression, SI/HI, AH/VH All other systems reviewed and are negative. [facility] Past Medical History Attestation statement: The following information was validated with the patient. Source: old records reviewed and nursing notes reviewed Medical History Chest pain Pulmonary hypertension Hip pain, left Bilateral hip pain Respiratory tract infection Interstitial lung disease Viral pneumonia Pneumonitis Right lower quadrant abdominal pain UTI (urinary tract infection) Mass on back H/O thrombocytosis COPD with acute exacerbation Pneumonia Weakness Constipation Opacities of both lungs present on chest x-ray Elevated WBC count Viral syndrome Asthma-COPD overlap syndrome Chronic respiratory failure Acute and chronic respiratory failure Generalized anxiety disorder Urinary incontinence CVA (cerebral vascular accident) Osteopenia Lumbar spinal stenosis Interstitial pulmonary fibrosis Insomnia Cystocele Hypertension Hypercholesterolemia Type 2 diabetes mellitus with hyperglycemia Surgical History Hx of section Social History Social History Household Members: Spouse Housing: Apartment Do you presently have visiting nurse or other home services: No Alcohol intake: former Patient Tobacco Use Status: Never used Tobacco Tobacco use type: Cigarette Smoked in Last 30 Days: No e-Cigarette/Vaping Use: Never Used Second Hand Smoke Exposure: No Use of substances other than those prescribed or required for medical reasons: No Advance Directives: Yes Advance Directives on File: Yes Advance Directives Date on File: 10/15/23 Do you have a plan to hurt others: No Plan service: No Current occupational status: retired Cognitive needs: Yes ([employer] Cane at home) Hearing needs: No Vision needs: Yes Physical Exam 2 Vital Signs: Vital Signs: Last Vital Signs Temp 97.7 F 03/09/24 11:04 Pulse 92 03/09/24 14:35 Resp 16 03/09/24 14:35 BP 104/62 03/09/24 14:35 Pulse Ox 95 03/09/24 14:35 O2 Del Method Nasal Cannula 03/09/24 14:35 O2 Flow Rate 2 03/09/24 14:35 Oxygen Flow Rate 3 03/09/24 10:55 BMI result Body Mass Index 21.6 Hypertensive, tachypneic, tachycardic General: thin appearing female Skin: Warm, dry, intact. No rashes or lesions. Head: Normocephalic, atraumatic. EENT: Hearing is intact b/l. Conjunctiva clear. PERRLA. EOM intact. Moist mucous membranes.? Neck: Supple without LAD Cardiac: Chest wall symmetric. tachy. no MRG. no JVD. Lungs: increased effort of breathing, tachypneic, crackles, diminished BS bilaterally Abdomen: Soft, non-tender, non-distended. No rebound tenderness or guarding. Positive BS x4. Back: No midline spinous or paraspinal tenderness. No step off deformity. Ext: Upper and lower extremities atraumatic, without tenderness, deformity, swelling or erythema. no pitting/ peripheral edema. no calf tenderness b/l. Neuro: AOx3. Normal speech. Psych: Appropriate mood and affect. Responds appropriately to questions. Course Course Course Narrative: 1116 -- on arrival, patient tachy to 110's, tachypneic to 22, satting 06% on 2L nasal cannula. during hand off, RN was not informed if patient received any interventions en route to ED. EMS will be contact for this information. > on chart review, patient admitted to this hospital on 02/24/24 for hypoxia, treated with IV lasix and steroids, and discharged the following day. 1254 -- CBC with leukocytosis to 12.9, no left shift. Chronic normocytic anemia, H and H appears to be around patient's baseline when compared to priors. Above transfusion threshold. No concern for acute blood loss at this time. VBG showing metabolic alkalosis, compensated. Chemistry without acute electrolyte abnormality requiring intervention. Random glucose 266. Normal liver function. Initial troponin 4.5. Will repeat for delta. BNP 86, CHF unlikely. She has tested negative for COVID, flu, RSV. > chest x-ray pending > patient receiving IV Solu-Medrol and up draft from RT 1340 -- On re-evaluation, patient reports minimal improvement w/ solumedtrol and updraft. states she does not feel at her baseline although she continues to sat 9-100% on 2L NC. Her son is now at bedside, states that he does nto feel she is at her baseline in terms of breathing either. Using accessory muscles, crackles throughout. > IV mag ordered. CXR pending although I do not appreciated an acute pneumonia or effusion on films. patient will likely require admission for ILD flare benefiting from continued steroids and up drafts. will reach out to hospitalist. 1440 -- Patient to be admitted to medicine for acute on chronic hypoxemic respiratory failure in the setting of acute HFrRF decompensation. Dr. Kumar to place admission orders. Medications Administered Discontinued Medications Generic Name Dose Route Start Last Admin Trade Name Freq PRN Reason Stop Dose Admin Albuterol/Ipratropium 3 ml 03/09/24 12:29 03/09/24 12:33 Albuterol/Iprat 2.5/0.5mg 3 Ml Ampul.Neb INHALE 03/09/24 12:30 3 ml ONCE ONE Administration Magnesium Sulfate 2 gm in 50 mls @ 150 mls/hr 03/09/24 13:11 03/09/24 15:00 Magnesium Sulfate/H2o IV 03/09/24 13:30 Infused ONCE ONE Infusion Methylprednisolone Sodium Succinate 125 mg 03/09/24 11:26 03/09/24 11:36 Methylprednisolone Sod Succ 125 Mg/2 Ml Vial IVPUSH 03/09/24 11:27 125 mg ONCE ONE Administration Medical Decision Making Medical Decision Making MDM Narrative: 83 year old female with pmhx significant for chronic hypoxic respiratory failure secondary to interstitial lung disease on 4L home O2 at rest 6-8L on exertion, COPD/asthma overlap syndrome, HFpEF, CVA, HTN, chronic thrombocytosis, insulin dependent type 2 diabetes presents to the ED today via EMS from home for evaluation of elevated heart rate, palpitations, right-sided chest pain, and increasing dyspnea on waking this morning. On exam, increased effort of breathing, tachypneic, crackles, diminished BS bilaterally. no peripheral edema. no pitting edema. no calf tenderness. History without high risk features (not substernal, no exertional component, not relieved with rest).? Clinical concern for athma/ copd exacerbation, acute hypoxic respiratory failure, ACS, arrhyhmia, viral syndrome, PNA, bronchitis, CHF Exam without evidence of volume overload. EKG without signs of active ischemia. HEART score: 5? Given the timing of pain to ED presentation, plan to send delta troponin to evaluate for NSTEMI. PERC 3 > given crackles on exam w/ history of ILD, I have low suspicion for PE at this time. CTA chest obtained on 02/24/24 (2 wks ago) negative for VTE. Presentation not consistent with pneumothorax, thoracic aortic dissection, cardiac effusion or tamponade. Plan: labs, troponin, viral serology, EKG, CXR, steroids, RT breathing treatment, serial reassessment. Differential Diagnosis Differential Diagnoses: The differential diagnosis associated with the presentation includes As above Admission/Observation Consideration of admission/observation: Escalation of care including admission/observation considered Patient admitted to medicine for acute on chronic hypoxic respiratory failure requiring IV steroids and nebs. Consult Healthcare Provider Management of the patient was discussed with: Hospitalist (Dr. Kumar, [facility]) Lab Data MDM Lab Attestation statement: I reviewed the patient's lab results. as above 03/09/24 11:34 03/09/24 11:34 Labs: Lab Results 03/09/24 03/09/24 Range/Units 11:34 11:41 WBC 12.9 H (4.8-10.8) X10*3/uL RBC 3.47 L (4.20-5.50) X10*6/uL Hgb 9.4 L (12.0-16.0) g/dl Hct 30.3 L (37.0-47.0) % MCV 87.3 (80.0-98.0) fL MCH 27.1 (27.0-33.0) pg MCHC 31.0 (31.0-35.0) g/dl RDW 15.2 (11.0-16.0) % Plt Count 646 H (160-400) X10*3/uL MPV 9.0 L (9.4-12.3) fL Immature Gran % (Auto) 0.4 (0.0-0.4) % Neut % (Auto) 60.5 (45-73) % Lymph % (Auto) 15.9 L (20-40) % [place] % (Auto) 4.0 (2-11) % Eos % (Auto) 18.3 H (0-4) % Baso % (Auto) 0.9 (0-2) % Lymph # (Auto) 2.0 (1.2-4.9) X10*3/uL [place] # (Auto) 0.5 (0.1-1.2) X10*3/uL Eos # (Auto) 2.4 H (0.0-0.4) X10*3/uL Baso # (Auto) 0.1 (0.0-0.2) X10*3/uL Abs Immat Gran (auto) 0.05 H (0.00-0.03) X10*3/uL Absolute Neuts (auto) 7.8 (2.0-8.3) x10*3/uL Absolute Nucleated RBC 0.000 (0.0-0.012) X10*3/uL Nucleated RBC % (auto) 0.0 (0.0-0.2) /100WBC Smear Tech's Comments VERIFIED PT 12.0 (10.9-12.4) SEC INR 1.0 (0.9-1.1) VBG pH 7.45 H (7.32-7.43) VBG pCO2 50 mmHg VBG pO2 63 mmHg VBG HCO3 35 H (22-26) mmol/L VBG O2 Saturation 92.0 % VBG Base Excess 10.4 mmol/L Sodium 139 (135-145) mmol/L Potassium 3.7 (3.3-5.1) mmol/L Chloride 100 (96-108) mmol/L Carbon Dioxide 33 H (22-29) mmol/L Anion Gap 10 L (12-20) BUN 11 (9-16) mg/dL Creatinine 0.63 (0.5-1.4) mg/dL Estim Creat Clear Calc 54.4 Estimated GFR > 60 Random Glucose 266 H (60-115) mg/dL Calcium 9.1 (8.4-10.2) mg/dL Magnesium 1.7 (1.6-2.6) mg/dL Total Bilirubin 0.4 (0.0-1.0) mg/dL AST 17 (5-31) U/L ALT 11 (0-31) U/L Alkaline Phosphatase 71 (39-117) U/L Troponin I High Sens 4.5 (<3.5-17.0) ng/L B-Natriuretic Peptide 86 (<100) pg/mL Total Protein 7.0 (6.5-8.0) g/dL Albumin 3.4 L (3.5-5.0) g/dL Influenza Type A (PCR) NEGATIVE (Negative) Influenza Type B (PCR) NEGATIVE (Negative) RSV RNA Qual (PCR) NEGATIVE (Negative) SARS-CoV-2 RNA (RT-PCR) NEGATIVE (Negative) Independent Interpretation I performed an independent interpretation of an: EKG and Plain X-Ray Interpretation: EKG showing normal sinus rhythm with sinus arrhythmia at a rate of 97 beats per minute, QT 372, QTC 472, QT prolonged. No acute ischemic changes or ST elevations when compared to previous EKGs. CXR without infiltrate or consolidation, agree with radiologist's interpretation. Radiology Impression Discussion of test interpretation with radiology: I have reviewed the radiologist's reading. Radiologist Impression: EXAMINATION: XR CHEST CLINICAL INFORMATION: Shortness of breath. Hypoxia. Respiratory failure. COMPARISON: CT chest February 24, 2024. Chest x-ray February 24, 2024 TECHNIQUE: 2 views of the chest were obtained. FINDINGS: Chronic increased interstitial lung markings, known interstitial lung disease. No significant change since February 24, 2024. No acute airspace opacities. No pleural effusion or pneumothorax. Surgical clip left upper quadrant of abdomen. Chronic soft tissue calcification adjacent to the right humeral head. XR/XR chest 2V IMPRESSION: Chronic interstitial lung disease. No acute airspace disease. Electronically signed by: Rolando Lee MD 03/09/2024 03:03 PM EDT RP Independent Historian Clinical information obtained from an independent historian. History obtained from or confirmed by: EMS External Record Review External record reviewed: Inpatient record, Office record, Outpatient record, Prior outpatient labs, Prior outpatient radiology, Primary care record and Outside ED record Prescription Management I considered prescription management with: Other (steroids) Chronic Conditions Patient?s care impacted by: Diabetes, Hypertension and Other (copd/ asthma) Social Determinants Patient?s care significantly limited by Social Determinants of Health including: Other Social Determinant of Health Critical Care Time Critical Care Time Critical Care Time: Yes Total Critical Care Time: 33 Attestation: Critical care time in the amount of 33 minutes has been provided to the patient in terms of direct patient care, frequent reevaluation, consultation with hospitalist, review and interpretation of medical data and results, and management of potentially life-threatening conditions. This is all outside of any medical procedures. Discharge Plan Discharge Clinical Impression: Acute on chronic respiratory failure with hypoxia Patient Disposition: Admitted As Inpatient Print Language: Nepali
--- NOTE | 2024-03-09 11:02 | PC.NURSE ---
Pt. is on campus monitor at this time as well as continuous SPO2 monitor.
[2024-03-09 11:04] VITALS: BP 142/78; PULSE 101; RESP 22; TEMP 36.5; O2SAT 100
--- NOTE | 2024-03-09 11:05 | ECG_ITS ---
Test Reason : SOB Blood Pressure : / mmHG Vent. Rate : 097 BPM Atrial Rate : 097 BPM P-R Int : 152 ms QRS Dur : 084 ms QT Int : 372 ms P-R-T Axes : 041 -42 -06 degrees QTc Int : 472 ms Normal sinus rhythm with sinus arrhythmia Left axis deviation T wave abnormality, consider anterolateral ischemia Prolonged QT Abnormal ECG When compared with ECG of 24-FEB-2024 15:00, Aberrant conduction is no longer Present T wave inversion more evident in Anterior leads Referred By: Kaitlyn Ivy Electronically Signed By:GIBSON CONROY
--- NOTE | 2024-03-09 11:10 | PC.NURSE ---
Skin PWD. tachipnic with minimal exertion in bed. LS CTA. states she's been SOB x 2 days. baseline is 2l NC at home. no palor lower conjunctiva. shallow resp. spking full sentences.
[2024-03-09] MEDS: methylPREDNISolone Sod Succ 125 MG/2 ML VIAL IVPUSH (11:36)
[2024-03-09 11:44] LABS: Basophils Absolute Auto 0.1 X10*3/uL (0.0-0.2); Basophils Percent Auto 0.9 % (0-2); Eosinophils Absolute Auto 2.4 X10*3/uL (0.0-0.4); Eosinophils Percent Auto 18.3 % (0-4); Hematocrit 30.3 % (37.0-47.0); Hemoglobin 9.4 g/dl (12.0-16.0); Imm Gran Abs Auto 0.05 X10*3/uL (0.00-0.03); Imm Gran Pct Auto 0.4 % (0.0-0.4); Lymphocytes Percent Auto 15.9 % (20-40); MANUAL DIFF FLAG SCAN; Mean Corpuscular Hemoglobin 27.1 pg (27.0-33.0); Mean Corpuscular Volume 87.3 fL (80.0-98.0); Monocytes Absolute Auto 0.5 X10*3/uL (0.1-1.2); Neutrophils Absolute Auto 7.8 x10*3/uL (2.0-8.3); Neutrophils Percent Auto 60.5 % (45-73); Platelet Count 646 X10*3/uL (160-400); Red Blood Count 3.47 X10*6/uL (4.20-5.50); Red Cell Distribution Width 15.2 % (11.0-16.0); SCAN SMEAR FLAG 1; White Blood Count 12.9 X10*3/uL (4.8-10.8)
[2024-03-09 11:45] LABS: Venous Blood Gas Refer to POC result
[2024-03-09 11:46] LABS: VBG Base Excess 10.4 mmol/L; VBG HCO3 35 mmol/L (22-26); VBG pCO2 50 mmHg; VBG pH 7.45 (7.32-7.43); VBG pO2 63 mmHg
[2024-03-09 12:04] LABS: Alanine Aminotransferase 11 U/L (0-31); Albumin Level 3.4 g/dL (3.5-5.0); Alkaline Phosphatase 71 U/L (39-117); Anion Gap 10 (12-20); Aspartate Amino Transferase 17 U/L (5-31); Bilirubin Total 0.4 mg/dL (0.0-1.0); Blood Urea Nitrogen 11 mg/dL (9-16); Calcium 9.1 mg/dL (8.4-10.2); Carbon Dioxide 33 mmol/L (22-29); Chloride 100 mmol/L (96-108); Creatinine Clr Calc Pharmacy 54.4; Estimated Glomerular Filt Rate > 60; Glucose Random 266 mg/dL (60-115); Magnesium 1.7 mg/dL (1.6-2.6); Potassium 3.7 mmol/L (3.3-5.1); SLIDE REVIEW VERIFIED; Sodium 139 mmol/L (135-145)
[2024-03-09 12:09] LABS: B Type Natriuretic Peptide 86 pg/mL (<100)
[2024-03-09 12:10] LABS: Troponin-I High Sensitivity 4.5 ng/L (<3.5-17.0)
[2024-03-09] MEDS: Albuterol/Iprat 2.5/0.5MG 3 ML AMPUL.NEB INHALE (12:33)
[2024-03-09 12:34] LABS: Influenza A PCR NEGATIVE (Negative); Influenza B PCR NEGATIVE (Negative); Resp Syncy Virus RNA Qual PCR NEGATIVE (Negative); SARS COV2 PCR INHOUSE NEGATIVE (Negative)
--- NOTE | 2024-03-09 14:13 | PM.IMHP ---
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 Patient reports she has been experiencing intermittent right-sided sharp, stabbing, nonradiating chest pain and intermittent left-sided chest pain that feels like ?electrical shocks? the past 2-3 days. Denies any alleviating or exacerbating factors. This morning upon waking patient was noted to be tachycardic up into the 130s with increased work of breathing and shortness of breath. Chronic cough at baseline. Family notes patient has been declining the past few months with increased generalized weakness and difficulty ambulating around the home. She has had 2 recent hospitalizations: from 02/09-02/15 for acute on chronic hypoxic respiratory failure secondary to acute on chronic systolic CHF and pulmonary fibrosis/COPD/severe persistent asthma with acute decompensation; and then on 02/23-02/24 for similar symptoms. Patient was initially seen by PT who recommended pulmonary rehab, but family opted to discharge home with services. Patient lives with her who also has significant chronic medical conditions that limit his mobility. In the ED pt was tachycardic up to 101, tachypneic up to 22, and mildly hypertensive of 142/78. Labs were grossly unremarkable and around baseline for patient. Leukocytosis of 12.9, chronic, around baseline. Stable normocytic anemia of 9.4/30.3. Hepatic function baseline. Troponin 4.5. BNP 86. Tested negative for flu, COVID, and RSV. VB pH 7.4 with bicarb 35, and pCO2 50, similar to previous. CXR showing chronic interstitial lung disease with no acute airspace disease, similar to prior.. EKG demonstrated sinus rhythm with sinus arrhythmia T-wave inversions in anteroseptal leads. Pt was treated with Solu-Medrol 125 mg IV, mag sulfate, and DuoNebs. Pt will be admitted to the hospital under observation for treatment and further evaluation of acute respiratory distress in the setting of chronic hypoxic respiratory failure due to ILD/COPD/severe persistent asthma. Review of Systems Review of Systems: Intermittent sharp, stabbing, non radiating right-sided chest pain Intermittent nonradiating left sided chest pain and feels like an electrical shock Increasing SOB Weakness, difficulty ambulating Chronic cough at baseline Denies fever, chills, nausea, vomiting, abdominal pain PMFSH Medical History Chest pain Pulmonary hypertension Hip pain, left Bilateral hip pain Respiratory tract infection Interstitial lung disease Viral pneumonia Pneumonitis Right lower quadrant abdominal pain UTI (urinary tract infection) Mass on back H/O thrombocytosis COPD with acute exacerbation Pneumonia Weakness Constipation Opacities of both lungs present on chest x-ray Elevated WBC count Viral syndrome Asthma-COPD overlap syndrome Chronic respiratory failure Acute and chronic respiratory failure Generalized anxiety disorder Urinary incontinence CVA (cerebral vascular accident) Osteopenia Lumbar spinal stenosis Interstitial pulmonary fibrosis Insomnia Cystocele Hypertension Hypercholesterolemia Type 2 diabetes mellitus with hyperglycemia Surgical History Hx of section Social History Household Members: Significant Other Housing: House Do you presently have visiting nurse or other home services: No Alcohol intake: former Patient Tobacco Use Status: Never used Tobacco Tobacco use type: Cigarette Smoked in Last 30 Days: No e-Cigarette/Vaping Use: Never Used Second Hand Smoke Exposure: No Use of substances other than those prescribed or required for medical reasons: No Currently Displaying Signs/Symptoms of Drug Intoxication Withdrawal: No Have you been hit, kicked, punched, or otherwise hurt by someone within the past year? If so, by whom?: No Do you feel safe in your current relationship?: No Advance Directives: Yes Advance Directives on File: Yes Advance Directives Date on File: 10/15/23 Do you have a plan to hurt others: No Plan Recently lost weight without trying: Unsure Patient : No service: No Current occupational status: retired Cognitive needs: Yes ([employer] at home) Hearing needs: No Vision needs: Yes Meds Allergies Allergy/AdvReac Type Severity Reaction Status Date / Time No Known Allergies Allergy Verified 03/09/24 10:57 Home Medications ?Medication ?Instructions ?Recorded ?Confirmed ?Last Taken ?Type Oxygen Home Use 10/23/22 02/28/24 Unknown History acetaminophen 500 mg tablet 1,000 mg PO TID PRN Pain 10/08/23 03/09/24 02/10/24 01:00 History atorvastatin 40 mg tablet 40 mg PO BEDTIME 02/10/24 03/09/24 1 Day Ago History ~03/08/24 magnesium oxide 400 mg (241.3 mg 400 mg PO BIDAC 02/24/24 03/09/24 1 Day Ago History magnesium) tablet ~03/08/24 sennosides 8.6 mg-docusate sodium 2 tab PO BEDTIME 02/24/24 03/09/24 1 Day Ago History 50 mg tablet (Stimulant Laxative ~03/08/24 Plus) tamsulosin 0.4 mg capsule 0.4 mg PO DAILY 02/24/24 03/09/24 1 Day Ago History ~03/08/24 insulin glargine 100 unit/mL (3 20 unit subcut DAILY@1300 03/09/24 03/09/24 1 Day Ago History mL) subcutaneous pen (Lantus ~03/08/24 Solostar U-100 Insulin) loratadine 10 mg tablet 10 mg PO DAILY 03/09/24 03/09/24 1 Day Ago History ~03/08/24 Physical Exam Vital Signs and Narrative: Vital Signs: Last Vital Signs Temp 97.7 F 03/09/24 11:04 Pulse 101 H 03/09/24 11:04 Resp 22 H 03/09/24 11:04 BP 142/78 H 03/09/24 11:04 Pulse Ox 100 03/09/24 11:04 O2 Del Method Nasal Cannula 03/09/24 11:04 O2 Flow Rate 2 03/09/24 11:04 Oxygen Flow Rate 3 03/09/24 10:55 BMI result Body Mass Index 21.6 Constitutional: Alert, looks uncomfortable, in no acute distress. Mental Status: Oriented to person, place and time. Eyes: Pupils are equal, round, and reactive to light. Ear, Nose, and Throat: Oropharynx clear, mucous membranes moist. Ears and nose without deformities. Trachea midline. Respiratory: Bibasilar crackles, right worse than left. Increased work of breathing. Cardiovascular: S1, S2 regular. No murmurs, rubs, or gallops. No JVD appreciated. Gastrointestinal: Abdomen soft, non-tender, non-distended. Normal bowel sounds. Neurologic: Cranial nerves II-XII are grossly intact bilaterally. No focal neurological deficits. Moves all extremities spontaneously. Skin: Warm, dry. Musculoskeletal: No cyanosis or clubbing. Extremities: No edema. Psychiatric: Normal mood and affect. Results Labs 03/09/24 11:34 03/09/24 11:34 Labs: Laboratory Results - last 24 hr 03/09/24 03/09/24 11:34 11:41 MCV 87.3 MCH 27.1 MCHC 31.0 RDW 15.2 Plt Count 646 H MPV 9.0 L Immature Gran % (Auto) 0.4 Neut % (Auto) 60.5 Lymph % (Auto) 15.9 L Elliott % (Auto) 4.0 Eos % (Auto) 18.3 H Baso % (Auto) 0.9 Lymph # (Auto) 2.0 Elliott # (Auto) 0.5 Eos # (Auto) 2.4 H Baso # (Auto) 0.1 Abs Immat Gran (auto) 0.05 H Absolute Neuts (auto) 7.8 Absolute Nucleated RBC 0.000 Nucleated RBC % (auto) 0.0 Smear Tech's Comments VERIFIED PT 12.0 INR 1.0 VBG pH 7.45 H VBG pCO2 50 VBG pO2 63 VBG HCO3 35 H VBG O2 Saturation 92.0 VBG Base Excess 10.4 Anion Gap 10 L Estim Creat Clear Calc 54.4 Estimated GFR > 60 Random Glucose 266 H Calcium 9.1 Magnesium 1.7 Total Bilirubin 0.4 AST 17 ALT 11 Alkaline Phosphatase 71 Troponin I High Sens 4.5 B-Natriuretic Peptide 86 Total Protein 7.0 Albumin 3.4 L Influenza Type A (PCR) NEGATIVE Influenza Type B (PCR) NEGATIVE RSV RNA Qual (PCR) NEGATIVE SARS-CoV-2 RNA (RT-PCR) NEGATIVE Assessment and Plan (1) Respiratory distress: Status: Acute (2) Chest pain: Status: Acute Plan Pt is an 83-year-old Kinyarwanda-speaking female with a PMH significant for?hronic hypoxic respiratory failure due to interstitial lung disease on 4L home O2 at rest and 6-8L on exertion, 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 Pt will be admitted to the hospital under observation for treatment and further evaluation of acute respiratory distress in the setting of chronic hypoxic respiratory failure due to ILD/COPD/severe persistent asthma. Respiratory distress in the setting of chronic hypoxic respiratory failure due to ILD/COPD/severe persistent asthma Pt with increased SOB, chest pain, weakness, bibasilar crackles; initially desatting into high 70s requiring 6L NC, now back to baseline home O2 CXR showing no acute process, low concern for pneumonia, no sepsis Tachycardia secondary to albuterol use, leukocytosis secondary to chronic steroid use Will treat with DuoNeliliana, Solu-Medrol Monitor respiratory status Atypical chest pain Patient complaining of intermittent right-sided sharp, stabbing, nonradiating chest pain Intermittent left-sided nonradiating pain that feels like ?electric shocks? EKG with T-wave inversions in anteroseptal leads, no significant ST elevations or depressions, initial troponin 4.5 Likely secondary to above Repeat troponin Monitor on telemetry HFpEF Not in acute exacerbation Continue home Lasix Insulin-dependent type 2 diabetes Sliding-scale insulin, Lantus Hold metformin Continue glipizide Hx of CVA Continue aspirin and statin HTN Continue losartan DNR/DNI, verified with patient and family at bedside Attending:?Dr. Kumar DVT Prophylaxis: Lovenox Pt will require a hospitalization of at least two nights for treatment of?respiratory distress in the setting of chronic hypoxic respiratory failure due to ILD/COPD/senior persistent asthma. Given patient's SOB above baseline and risk for severe decompensation, she will require inpatient level of care for administration of IV steroids and breathing treatments. Quality Stroke Does the patient have a stroke diagnosis?: No VTE Prior VTE?: No VTE Risk Level:: Medical - moderate - high VTE Device Contraindication: Treatment Not Indicated VTE Drug Contraindication: N/A - Med Ordered
[2024-03-09] MEDS: Magnesium Sulfate/H2O 2 GM/50 ML PIGGYBACK IV (14:33)
[2024-03-09 14:35] VITALS: BP 104/62; PULSE 92; RESP 16; O2SAT 95
--- NOTE | 2024-03-09 15:31 | PHA.MEDREC ---
Addendum entered by Betty Meyer RPh 03/09/24 15:51: Tamsulosin picked up 02/24*; reviewed by [facility]. Patient was on 10 units of Lantus but per son is now on 20. Provider aware Original Note: Pharmacy Consult ? Medication Reconciliation Pharmacy has completed the medication reconciliation. Confirmed medications with patients son at bedside. Patient son was able to confirm his mom is getting 20 units of Lantus injected at night. He also was not sure if his mom was still taking Tamsulosin or not but looking in claims she just picked it up on 03/16 for 28 days and has been getting it filled consistently since 09/2023. Patient was also recent admitted with [facility] and on her discharge packet Tamsulosin was listed as a continued medication. The son also wasnt not sure last time his mom took her medications he knows it was not this morning and thinks maybe yesterday.
[2024-03-09 15:44] LABS: Troponin-I High Sensitivity 3.9 ng/L (<3.5-17.0)
[2024-03-09 16:00] VITALS: BP 123/55; PULSE 96; RESP 22; TEMP 37.2; O2SAT 95
[2024-03-09] MEDS: 0.9 % Sodium Chloride Flush 3 ML SYRINGE IVFLUSH (16:02)
[2024-03-09] MEDS: Enoxaparin Sodium 40 MG/0.4 ML SYRINGE SUBCUT (16:02)
--- NOTE | 2024-03-09 17:41 | PC.NURSE ---
resting quietly with son at bedside. both aware ofplan of care for admission. skin pwd. unlabored resp at rest in bed. 2L NC in use which is baseline. nsr on monitor.
[2024-03-09 18:19] LABS: Glucose, Whole Blood 198 mg/dL (60-115)
[2024-03-09 18:19] LABS: Glucose, Whole Blood 192 mg/dL (60-115)
[2024-03-09] MEDS: Insulin Lispro 100 UNIT/ML 3 ML VIAL SUBCUT ×2 (18:47→20:38)
--- NOTE | 2024-03-09 18:58 | PC.NURSE ---
fitted with hospital bed and dinner tray
[2024-03-09 20:00] VITALS: BP 131/62; PULSE 95; RESP 20; TEMP 36.6; O2SAT 100
[2024-03-09 20:27] LABS: Glucose, Whole Blood 352 mg/dL (60-115)
--- NOTE | 2024-03-09 20:27 | PC.NURSE ---
Pt.'s POC is 352. Per Insulin Lispro protocol, BREE Xavier notified. 10U Lispro to be administered per protocol.
[2024-03-09] MEDS: Atorvastatin Calcium 40 MG TABLET PO (20:37)
[2024-03-09] MEDS: Gabapentin 300 MG CAPSULE PO (20:37)
[2024-03-09] MEDS: Sennosides/Docusate Sodium TABLET 2 TAB PO (20:37)
[2024-03-09] MEDS: Insulin Glargine,Hum.rec.anlog 100 UNIT/ML 10 ML VIAL 14 UNIT SUBCUT (20:38)
--- NOTE | 2024-03-09 20:44 | PC.NURSE ---
Awaiting 21:00 dose of Mycophenolate per Pharmacy at this time.
[2024-03-10] VITALS (14 sets, daily range): BP systolic 117–141; BP diastolic 58–76; PULSE 77–101; RESP 17–24; TEMP 36.3–37; O2SAT 91–100; BMI 20.8
--- NOTE | 2024-03-10 00:06 | PC.NURSE ---
assumed care of pt at 23:15
[2024-03-10 00:36] LABS: Appearance Urine Clear; Color Urine Yellow; Glucose Urine UA 250 mg/dL (Negative); Leukocyte Esterase Urine Negative (Negative); Nitrite Urine Negative (Negative); PH 6.5 (5.0-9.0); Urine Blood Negative (Negative); Urine Ketones 15 mg/dL (Negative); Urine Protein Negative (Neg-Trace)
[2024-03-10] MEDS: 0.9 % Sodium Chloride Flush 3 ML SYRINGE IVFLUSH ×3 (01:13→21:23)
[2024-03-10] MEDS: mycophenolate mofetiL 250 MG CAPSULE 500 MG PO ×3 (01:13→21:22)
[2024-03-10] MEDS: methylPREDNISolone Sod Succ 40 MG/ML VIAL IVPUSH ×2 (01:13→13:22)
[2024-03-10 07:42] LABS: Glucose, Whole Blood 256 mg/dL (60-115)
[2024-03-10] MEDS: Albuterol/Iprat 2.5/0.5MG 3 ML AMPUL.NEB INHALE ×4 (07:50→20:22)
[2024-03-10] MEDS: Insulin Lispro 100 UNIT/ML 3 ML VIAL SUBCUT ×3 (08:35→21:22)
[2024-03-10] MEDS: DULoxetine HCl 60 MG CAPSULE.DR PO (08:36)
[2024-03-10] MEDS: Aspirin Enteric Coated 81 MG TABLET.DR PO (08:36)
[2024-03-10] MEDS: Tamsulosin HCL 0.4 MG CAPSULE PO (08:36)
[2024-03-10] MEDS: amLODIPine Besylate 2.5 MG TABLET PO (08:36)
[2024-03-10] MEDS: glipiZIDE 5 MG TABLET PO (08:36)
[2024-03-10] MEDS: Magnesium Oxide 400 MG TABLET PO ×2 (08:37→16:56)
[2024-03-10] MEDS: Cholecalciferol (Vitamin D3) 25 MCG TABLET 50 MCG PO (08:37)
--- NOTE | 2024-03-10 10:45 | MHC.CM.PN ---
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 Daniel. She was recently DC's from here with services from [facility]. She has home O2. DCP: DAGO WALSH to follow and assist with DC plan.
--- NOTE | 2024-03-10 11:32 | HO.PM.IMPN ---
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 Heart rate bumped to 150s with activity. Review of Systems All other system reviewed and are negative. Physical Exam Vital Signs: Vital Signs: Last Vital Signs Temp 97.6 F 03/10/24 11:25 Pulse 99 03/10/24 11:25 Resp 24 H 03/10/24 11:25 BP 129/66 03/10/24 11:25 Pulse Ox 100 03/10/24 11:25 O2 Del Method Nasal Cannula 03/10/24 11:25 O2 Flow Rate 3 03/10/24 11:25 Oxygen Flow Rate 3 03/09/24 10:55 BMI result Body Mass Index 20.8 Const: Other: General awake alert x3, in no acute distress. Neck supple no JVD. CVS regular rate rhythm, Respiratory lungs bibasilar dry crackles ,no wheeze, no rhonchi. Gastrointestinal abdomen soft, non tender, bowel sounds audible Extremities no edema. Neuro non focal Skin no rash Psych appropriate affect Objective Data Active Medications Acetaminophen (Acetaminophen 325 Mg Tablet) 650 mg PO Q6H PRN PRN Reason: Pain, Mild (Pain Scale 1-3), fever or headache Albuterol/Ipratropium (Albuterol/Iprat 2.5/0.5mg 3 Ml Ampul.Neb) 3 ml INHALE RQ4H WHILE AWAKE [facility] Last Admin: 03/10/24 11:31 Dose: 3 ml Documented By: ALAN Aspirin (Aspirin Enteric Coated 81 Mg Tablet.) 81 mg PO DAILY [facility] Last Admin: 03/10/24 08:36 Dose: 81 mg Documented By: LONG Atorvastatin Calcium (Atorvastatin Calcium 40 Mg Tablet) 40 mg PO BEDTIME [facility] Last Admin: 03/09/24 20:37 Dose: 40 mg Documented By: ENRIQUE Calcium Carbonate (Calcium Carbonate 750 Mg Tab.Chew) 750 mg PO Q4H PRN PRN Reason: Heartburn Duloxetine HCl (Duloxetine Hcl 60 Mg Capsule.) 60 mg PO DAILY [facility] Last Admin: 03/10/24 08:36 Dose: 60 mg Documented By: LONG Enoxaparin Sodium (Enoxaparin Sodium 40 Mg/0.4 Ml Syringe) 40 mg SUBCUT Q24H [facility] Last Admin: 03/09/24 16:02 Dose: 40 mg Documented By: WHIT Gabapentin (Gabapentin 300 Mg Capsule) 300 mg PO BEDTIME [facility] Last Admin: 03/09/24 20:37 Dose: 300 mg Documented By: ENRIQUE Glipizide (Glipizide 5 Mg Tablet) 5 mg PO DAILY [facility] Last Admin: 03/10/24 08:36 Dose: 5 mg Documented By: LONG Glucose (Glucose Gel 15 Gm Gel..Gram.) 15 gm PO Q15M PRN; Protocol PRN Reason: per Hypoglycemia Standing Ord. Dextrose (D10) 250 mls @ 750 mls/hr IV Q15M PRN; Protocol PRN Reason: per Hypoglycemia Standing Ord. Insulin Glargine (Insulin Glargine,Hum.Rec.Anlog 100 Unit/Ml 10 Ml Vial) 14 unit SUBCUT BEDTIME [facility] Last Admin: 03/09/24 20:38 Dose: 14 unit Documented By: ENRIQUE Insulin Human Lispro (Insulin Lispro 100 Unit/Ml 3 Ml Vial) 0 unit SUBCUT QIDACHS [facility]; Protocol Last Admin: 03/10/24 08:35 Dose: 6 unit Documented By: LONG Magnesium Hydroxide (Milk Of Magnesia 30 Ml Oral.Susp) 30 ml PO DAILY PRN PRN Reason: Constipation Magnesium Oxide (Magnesium Oxide 400 Mg Tablet) 400 mg PO BIDAC [facility] Last Admin: 03/10/24 08:37 Dose: 400 mg Documented By: LONG Melatonin (Melatonin 3 Mg Tablet) 6 mg PO BEDTIME PRN PRN Reason: Insomnia Methylprednisolone Sodium Succinate (Methylprednisolone Sod Succ 40 Mg/Ml Vial) 40 mg IVPUSH Q12H [facility] Last Admin: 03/10/24 01:13 Dose: 40 mg Documented By: ANJU Mycophenolate Mofetil (Mycophenolate Mofetil 250 Mg Capsule) 500 mg PO BID [facility] Last Admin: 03/10/24 08:36 Dose: 500 mg Documented By: LONG Ondansetron HCl (Ondansetron Hcl 4 Mg/2 Ml Vial) 4 mg IVPUSH Q8H PRN PRN Reason: Nausea and Vomiting Senna/Docusate Sodium (Sennosides/Docusate Sodium Tablet) 2 tab PO BEDTIME [facility] Last Admin: 03/09/24 20:37 Dose: 2 tab Documented By: ENRIQUE Sodium Chloride (0.9 % Sodium Chloride Flush 3 Ml Syringe) 3 ml IVFLUSH QSHIFT [facility] Last Admin: 03/10/24 08:37 Dose: 3 ml Documented By: LONG Tamsulosin HCl (Tamsulosin Hcl 0.4 Mg Capsule) 0.4 mg PO DAILY [facility] Last Admin: 03/10/24 08:36 Dose: 0.4 mg Documented By: LONG Vitamin D (Cholecalciferol (Vitamin D3) 25 Mcg Tablet) 50 mcg PO DAILY [facility] Last Admin: 03/10/24 08:37 Dose: 50 mcg Documented By: LONG Labs 03/09/24 11:34 03/09/24 11:34 Labs: Laboratory Results - last 24 hr 03/09/24 03/09/24 03/09/24 11:34 11:41 15:04 MCV 87.3 MCH 27.1 MCHC 31.0 RDW 15.2 Plt Count 646 H MPV 9.0 L Immature Gran % (Auto) 0.4 Neut % (Auto) 60.5 Lymph % (Auto) 15.9 L Randall % (Auto) 4.0 Eos % (Auto) 18.3 H Baso % (Auto) 0.9 Lymph # (Auto) 2.0 Randall # (Auto) 0.5 Eos # (Auto) 2.4 H Baso # (Auto) 0.1 Abs Immat Gran (auto) 0.05 H Absolute Neuts (auto) 7.8 Absolute Nucleated RBC 0.000 Nucleated RBC % (auto) 0.0 Smear Tech's Comments VERIFIED PT 12.0 INR 1.0 VBG pH 7.45 H VBG pCO2 50 VBG pO2 63 VBG HCO3 35 H VBG O2 Saturation 92.0 VBG Base Excess 10.4 Anion Gap 10 L Estim Creat Clear Calc 54.4 Estimated GFR > 60 POC Glucose Random Glucose 266 H Calcium 9.1 Magnesium 1.7 Total Bilirubin 0.4 AST 17 ALT 11 Alkaline Phosphatase 71 Troponin I High Sens 4.5 3.9 B-Natriuretic Peptide 86 Total Protein 7.0 Albumin 3.4 L Urine Color Urine Appearance Urine pH Ur Specific [place] Urine Protein Urine Glucose (UA) Urine Ketones Urine Blood Urine Nitrite Ur Leukocyte Esterase Influenza Type A (PCR) NEGATIVE Influenza Type B (PCR) NEGATIVE RSV RNA Qual (PCR) NEGATIVE SARS-CoV-2 RNA (RT-PCR) NEGATIVE 03/09/24 03/09/24 03/09/24 17:32 18:14 20:24 MCV MCH MCHC RDW Plt Count MPV Immature Gran % (Auto) Neut % (Auto) Lymph % (Auto) Randall % (Auto) Eos % (Auto) Baso % (Auto) Lymph # (Auto) Randall # (Auto) Eos # (Auto) Baso # (Auto) Abs Immat Gran (auto) Absolute Neuts (auto) Absolute Nucleated RBC Nucleated RBC % (auto) Smear Tech's Comments PT INR VBG pH VBG pCO2 VBG pO2 VBG HCO3 VBG O2 Saturation VBG Base Excess Anion Gap Estim Creat Clear Calc Estimated GFR POC Glucose 192 H 198 H 352 H* Random Glucose Calcium Magnesium Total Bilirubin AST ALT Alkaline Phosphatase Troponin I High Sens B-Natriuretic Peptide Total Protein Albumin Urine Color Urine Appearance Urine pH Ur Specific [place] Urine Protein Urine Glucose (UA) Urine Ketones Urine Blood Urine Nitrite Ur Leukocyte Esterase Influenza Type A (PCR) Influenza Type B (PCR) RSV RNA Qual (PCR) SARS-CoV-2 RNA (RT-PCR) 03/10/24 03/10/24 00:26 07:09 MCV MCH MCHC RDW Plt Count MPV Immature Gran % (Auto) Neut % (Auto) Lymph % (Auto) Randall % (Auto) Eos % (Auto) Baso % (Auto) Lymph # (Auto) Randall # (Auto) Eos # (Auto) Baso # (Auto) Abs Immat Gran (auto) Absolute Neuts (auto) Absolute Nucleated RBC Nucleated RBC % (auto) Smear Tech's Comments PT INR VBG pH VBG pCO2 VBG pO2 VBG HCO3 VBG O2 Saturation VBG Base Excess Anion Gap Estim Creat Clear Calc Estimated GFR POC Glucose 256 H Random Glucose Calcium Magnesium Total Bilirubin AST ALT Alkaline Phosphatase Troponin I High Sens B-Natriuretic Peptide Total Protein Albumin Urine Color Yellow Urine Appearance Clear Urine pH 6.5 Ur Specific [place] 1.010 Urine Protein Negative Urine Glucose (UA) 250 H Urine Ketones 15 Urine Blood Negative Urine Nitrite Negative Ur Leukocyte Esterase Negative Influenza Type A (PCR) Influenza Type B (PCR) RSV RNA Qual (PCR) SARS-CoV-2 RNA (RT-PCR) Assessment and Plan (1) Chest pain: Status: Acute (2) Respiratory distress: Status: Acute (3) Acute on chronic respiratory failure with hypoxia: Status: Acute (4) Pulmonary hypertension: Status: Acute (5) Interstitial pulmonary fibrosis: Status: Acute Plan 83-year-old [place]ian-speaking female with a PMH significant for?hronic hypoxic respiratory failure due to interstitial lung disease on 4L home O2 at rest and 6-8L on exertion, 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 Pt will be admitted to the hospital under observation for treatment and further evaluation of acute respiratory distress in the setting of chronic hypoxic respiratory failure due to ILD/COPD/severe persistent asthma. Respiratory distress in the setting of acute on chronic hypoxic respiratory failure due to ILD/COPD/severe persistent asthma stable sob and oxygenation CXR showing no acute process, low concern for pneumonia, no sepsis ch.leukocytosis secondary to chronic steroid use cont.DuoNebs, Solu-Medrol Monitor respiratory status Atypical chest pain and sinus tachycardia intermittent right-sided sharp, stabbing, nonradiating chest pain with activity , sinus tachycardia with activity. EKG with T-wave inversions in anteroseptal leads, no significant ST elevations or depressions, initial troponin 4.5 Consulted cardiology, EKG changes likely suggestive of RV strain with underlying severe pulmonary hypertension and hypoxia and compensatory tachycardia. Add Cardizem for heart rate control. Monitor on telemetry HFpEF Not in acute exacerbation,hold Lasix Insulin-dependent type 2 diabetes Elevated blood sugars likely due to steroids, continue Sliding-scale insulin, Lantus and glipizide Hold metformin Hx of CVA Continue aspirin and statin HTN Hold losartan placed on Cardizem as above DNR/DNI, DVT Prophylaxis: Lovenox Pt will require continued inpatient hospitalization for close monitoring of hypoxia and sinus tachycardia requiring medication adjustment and tele monitoring. Quality Stroke Does the patient have a stroke diagnosis?: No VTE Prior VTE?: No VTE Risk Level:: Medical - moderate - high VTE Device Contraindication: Treatment Not Indicated VTE Drug Contraindication: N/A - Med Ordered
[2024-03-10 11:39] LABS: Glucose, Whole Blood 210 mg/dL (60-115)
--- NOTE | 2024-03-10 11:42 | P.CONCA_ITS ---
History of Present Illness History of Present Illness Date of Service: 03/10/24 Requesting physician: Cortes Kumar Consult reason: other (Abnormal EKG, chest pain) Chief complaint: Respiratory distress, chest pain Narrative: I was consulted to see Georgie in cardiology consultation today for abnormal EKG as well as tachycardia and chest pain syndrome. History was obtained with help of silk screen processor at bedside. Patient is 83-year-old female with significant chronic respiratory failure due to interstitial pulmonary fibrosis on high levels of oxygen at home and including exertion, she also has secondary significant RV enlargement and dysfunction as well as pulmonary hypertension. She came to the hospital with minimal exertion having severe chest pressure and difficulty to breathe. In the ED she was noted with tachy neck in with sinus tachycardia up to 130 beats per minute. With severe chest pains EKG shows diffuse T-wave inversion. She has multiple hospitalization last couple of months related to the same issues. BNP is normal. Troponin is negative. At rest she has no issues. She is very anxious. No clear leg edema, abdominal distension. No clear orthopnea, PND. Most of her symptoms are related to exertion. Review of Systems 2 Constitutional: Constitutional: Reports lethargy and Reports weakness Cardiovascular: Cardiovascular: Denies Abdominal Distension, Reports chest pain, Denies rapid heart rate, Denies leg edema, Denies lightheadedness, Denies Loss of Consciousness, Reports dyspnea and Reports dyspnea on exertion Respiratory: Respiratory: Reports cough, Reports dyspnea and Reports dyspnea on exertion Gastrointestinal: Gastrointestinal: Reports no additional gastrointestinal complaints Musculoskeletal: Musculoskeletal: Reports no additional musculoskeletal complaints Integumentary/Breasts: Skin/Breast: Reports system reviewed and no additional complaints, except as docu Neurologic: Reports system reviewed and no additional complaints, except as documented and Reports weakness Endocrine: Endocrine: Reports no additional endocrine complaints [facility] Past Medical History Medical History Chest pain Pulmonary hypertension Hip pain, left Bilateral hip pain Respiratory tract infection Interstitial lung disease Viral pneumonia Pneumonitis Right lower quadrant abdominal pain UTI (urinary tract infection) Mass on back H/O thrombocytosis COPD with acute exacerbation Pneumonia Weakness Constipation Opacities of both lungs present on chest x-ray Elevated WBC count Viral syndrome Asthma-COPD overlap syndrome Chronic respiratory failure Acute and chronic respiratory failure Generalized anxiety disorder Urinary incontinence CVA (cerebral vascular accident) Osteopenia Lumbar spinal stenosis Interstitial pulmonary fibrosis Insomnia Cystocele Hypertension Hypercholesterolemia Type 2 diabetes mellitus with hyperglycemia Surgical History Surgical History Hx of section Social History Social History Household Members: Significant Other Housing: House Do you presently have visiting nurse or other home services: No Alcohol intake: former Patient Tobacco Use Status: Never used Tobacco Tobacco use type: Cigarette Smoked in Last 30 Days: No e-Cigarette/Vaping Use: Never Used Second Hand Smoke Exposure: No Use of substances other than those prescribed or required for medical reasons: No Currently Displaying Signs/Symptoms of Drug Intoxication Withdrawal: No Have you been hit, kicked, punched, or otherwise hurt by someone within the past year? If so, by whom?: No Do you feel safe in your current relationship?: No Advance Directives: Yes Advance Directives on File: Yes Advance Directives Date on File: 10/15/23 Do you have a plan to hurt others: No Plan Recently lost weight without trying: Unsure Patient : No service: No Current occupational status: retired Cognitive needs: Yes ([employer]ane at home) Hearing needs: No Vision needs: Yes Meds Allergies Allergy/AdvReac Type Severity Reaction Status Date / Time No Known Allergies Allergy Verified 03/09/24 10:57 Active Medications: Current Medications Acetaminophen (Acetaminophen 325 Mg Tablet) 650 mg PO Q6H PRN PRN Reason: Pain, Mild (Pain Scale 1-3), fever or headache Albuterol/Ipratropium (Albuterol/Iprat 2.5/0.5mg 3 Ml Ampul.Neb) 3 ml INHALE RQ4H WHILE AWAKE [facility] Last Admin: 03/10/24 11:31 Dose: 3 ml Aspirin (Aspirin Enteric Coated 81 Mg Tablet.) 81 mg PO DAILY [facility] Last Admin: 03/10/24 08:36 Dose: 81 mg Atorvastatin Calcium (Atorvastatin Calcium 40 Mg Tablet) 40 mg PO BEDTIME [facility] Last Admin: 03/09/24 20:37 Dose: 40 mg Calcium Carbonate (Calcium Carbonate 750 Mg Tab.Chew) 750 mg PO Q4H PRN PRN Reason: Heartburn Diltiazem HCl (Diltiazem Hcl 30 Mg Tablet) 30 mg PO BID [facility]; Protocol Duloxetine HCl (Duloxetine Hcl 60 Mg Capsule.) 60 mg PO DAILY [facility] Last Admin: 03/10/24 08:36 Dose: 60 mg Enoxaparin Sodium (Enoxaparin Sodium 40 Mg/0.4 Ml Syringe) 40 mg SUBCUT Q24H [facility] Last Admin: 03/09/24 16:02 Dose: 40 mg Gabapentin (Gabapentin 300 Mg Capsule) 300 mg PO BEDTIME [facility] Last Admin: 03/09/24 20:37 Dose: 300 mg Glipizide (Glipizide 5 Mg Tablet) 5 mg PO DAILY [facility] Last Admin: 03/10/24 08:36 Dose: 5 mg Glucose (Glucose Gel 15 Gm Gel..Gram.) 15 gm PO Q15M PRN; Protocol PRN Reason: per Hypoglycemia Standing Ord. Dextrose (D10) 250 mls @ 750 mls/hr IV Q15M PRN; Protocol PRN Reason: per Hypoglycemia Standing Ord. Insulin Glargine (Insulin Glargine,Hum.Rec.Anlog 100 Unit/Ml 10 Ml Vial) 14 unit SUBCUT BEDTIME [facility] Last Admin: 03/09/24 20:38 Dose: 14 unit Insulin Human Lispro (Insulin Lispro 100 Unit/Ml 3 Ml Vial) 0 unit SUBCUT QIDACHS [facility]; Protocol Last Admin: 03/10/24 08:35 Dose: 6 unit Magnesium Hydroxide (Milk Of Magnesia 30 Ml Oral.Susp) 30 ml PO DAILY PRN PRN Reason: Constipation Magnesium Oxide (Magnesium Oxide 400 Mg Tablet) 400 mg PO BIDAC [facility] Last Admin: 03/10/24 08:37 Dose: 400 mg Melatonin (Melatonin 3 Mg Tablet) 6 mg PO BEDTIME PRN PRN Reason: Insomnia Methylprednisolone Sodium Succinate (Methylprednisolone Sod Succ 40 Mg/Ml Vial) 40 mg IVPUSH Q12H [facility] Last Admin: 03/10/24 01:13 Dose: 40 mg Mycophenolate Mofetil (Mycophenolate Mofetil 250 Mg Capsule) 500 mg PO BID [facility] Last Admin: 03/10/24 08:36 Dose: 500 mg Ondansetron HCl (Ondansetron Hcl 4 Mg/2 Ml Vial) 4 mg IVPUSH Q8H PRN PRN Reason: Nausea and Vomiting Senna/Docusate Sodium (Sennosides/Docusate Sodium Tablet) 2 tab PO BEDTIME [facility] Last Admin: 03/09/24 20:37 Dose: 2 tab Sodium Chloride (0.9 % Sodium Chloride Flush 3 Ml Syringe) 3 ml IVFLUSH QSHIFT [facility] Last Admin: 03/10/24 08:37 Dose: 3 ml Tamsulosin HCl (Tamsulosin Hcl 0.4 Mg Capsule) 0.4 mg PO DAILY [facility] Last Admin: 03/10/24 08:36 Dose: 0.4 mg Vitamin D (Cholecalciferol (Vitamin D3) 25 Mcg Tablet) 50 mcg PO DAILY [facility] Last Admin: 03/10/24 08:37 Dose: 50 mcg Home Medications ?Medication ?Instructions ?Recorded ?Confirmed ?Last Taken ?Type Oxygen Home Use 10/23/22 02/28/24 Unknown History acetaminophen 500 mg tablet 1,000 mg PO TID PRN Pain 10/08/23 03/09/24 02/10/24 01:00 History atorvastatin 40 mg tablet 40 mg PO BEDTIME 02/10/24 03/09/24 1 Day Ago History ~03/08/24 magnesium oxide 400 mg (241.3 mg 400 mg PO BIDAC 02/24/24 03/09/24 1 Day Ago History magnesium) tablet ~03/08/24 sennosides 8.6 mg-docusate sodium 2 tab PO BEDTIME 02/24/24 03/09/24 1 Day Ago History 50 mg tablet (Stimulant Laxative ~03/08/24 Plus) tamsulosin 0.4 mg capsule 0.4 mg PO DAILY 02/24/24 03/09/24 1 Day Ago History ~03/08/24 insulin glargine 100 unit/mL (3 20 unit subcut DAILY@1300 03/09/24 03/09/24 1 Day Ago History mL) subcutaneous pen (Lantus ~03/08/24 Solostar U-100 Insulin) loratadine 10 mg tablet 10 mg PO DAILY 03/09/24 03/09/24 1 Day Ago History ~03/08/24 Physical Exam 2 Vital Signs: Vital Signs: Last Vital Signs Temp 97.6 F 03/10/24 11:25 Pulse 99 03/10/24 11:32 Resp 24 H 03/10/24 11:32 BP 129/66 03/10/24 11:25 Pulse Ox 100 03/10/24 11:25 O2 Del Method Nasal Cannula 03/10/24 11:25 O2 Flow Rate 3 03/10/24 11:25 Oxygen Flow Rate 3 03/09/24 10:55 BMI result Body Mass Index 20.8 Const: General: cooperative, no acute distress, alert, awake and anxious N utritional Appearance: other (Frail appearing) Orientation/consciousness: p atient oriented x3 HEENT: Head: Yes normocephalic and Yes atraumatic Neck: Neck: Yes trachea midline, Yes supple and Yes no JVD Resp: Effort & Inspection: normal respiratory effort Auscultation: crackles (Coarse) bilateral at the base Cardio: Jugular venous distension: no JVD Palpation: heave (RV heave) R ate: regular rate Rhythm: regular rhythm Heart sounds: S1 normal heart sound present, S2 normal heart sound present (Loud P2), no click, no gallops and no murmurs GI: Auscultation: normal bowel sounds Skin: General skin exam: no rashes or lesions noted Neuro: General: patient oriented x3 and no focal motor deficits Extrem: General: Yes no clubbing, cyanosis or edema Objective Labs and Meds 03/09/24 11:34 03/09/24 11:34 Lab results: Laboratory Results - last 24 hr 03/09/24 03/09/24 03/09/24 11:34 11:41 15:04 WBC 12.9 H RBC 3.47 L Hgb 9.4 L Hct 30.3 L MCV 87.3 MCH 27.1 MCHC 31.0 RDW 15.2 Plt Count 646 H MPV 9.0 L Immature Gran % (Auto) 0.4 Neut % (Auto) 60.5 Lymph % (Auto) 15.9 L [place] % (Auto) 4.0 Eos % (Auto) 18.3 H Baso % (Auto) 0.9 Lymph # (Auto) 2.0 [place] # (Auto) 0.5 Eos # (Auto) 2.4 H Baso # (Auto) 0.1 Abs Immat Gran (auto) 0.05 H Absolute Neuts (auto) 7.8 Absolute Nucleated RBC 0.000 Nucleated RBC % (auto) 0.0 Smear Tech's Comments VERIFIED PT 12.0 INR 1.0 VBG pH 7.45 H VBG pCO2 50 VBG pO2 63 VBG HCO3 35 H VBG O2 Saturation 92.0 VBG Base Excess 10.4 Sodium 139 Potassium 3.7 Chloride 100 Carbon Dioxide 33 H Anion Gap 10 L BUN 11 Creatinine 0.63 Estim Creat Clear Calc 54.4 Estimated GFR > 60 POC Glucose Random Glucose 266 H Calcium 9.1 Magnesium 1.7 Total Bilirubin 0.4 AST 17 ALT 11 Alkaline Phosphatase 71 Troponin I High Sens 4.5 3.9 B-Natriuretic Peptide 86 Total Protein 7.0 Albumin 3.4 L Urine Color Urine Appearance Urine pH Ur Specific [place] Urine Protein Urine Glucose (UA) Urine Ketones Urine Blood Urine Nitrite Ur Leukocyte Esterase Influenza Type A (PCR) NEGATIVE Influenza Type B (PCR) NEGATIVE RSV RNA Qual (PCR) NEGATIVE SARS-CoV-2 RNA (RT-PCR) NEGATIVE 03/09/24 03/09/24 03/09/24 17:32 18:14 20:24 WBC RBC Hgb Hct MCV MCH MCHC RDW Plt Count MPV Immature Gran % (Auto) Neut % (Auto) Lymph % (Auto) [place] % (Auto) Eos % (Auto) Baso % (Auto) Lymph # (Auto) [place] # (Auto) Eos # (Auto) Baso # (Auto) Abs Immat Gran (auto) Absolute Neuts (auto) Absolute Nucleated RBC Nucleated RBC % (auto) Smear Tech's Comments PT INR VBG pH VBG pCO2 VBG pO2 VBG HCO3 VBG O2 Saturation VBG Base Excess Sodium Potassium Chloride Carbon Dioxide Anion Gap BUN Creatinine Estim Creat Clear Calc Estimated GFR POC Glucose 192 H 198 H 352 H* Random Glucose Calcium Magnesium Total Bilirubin AST ALT Alkaline Phosphatase Troponin I High Sens B-Natriuretic Peptide Total Protein Albumin Urine Color Urine Appearance Urine pH Ur Specific [place] Urine Protein Urine Glucose (UA) Urine Ketones Urine Blood Urine Nitrite Ur Leukocyte Esterase Influenza Type A (PCR) Influenza Type B (PCR) RSV RNA Qual (PCR) SARS-CoV-2 RNA (RT-PCR) 03/10/24 03/10/24 03/10/24 00:26 07:09 11:28 WBC RBC Hgb Hct MCV MCH MCHC RDW Plt Count MPV Immature Gran % (Auto) Neut % (Auto) Lymph % (Auto) [place] % (Auto) Eos % (Auto) Baso % (Auto) Lymph # (Auto) [place] # (Auto) Eos # (Auto) Baso # (Auto) Abs Immat Gran (auto) Absolute Neuts (auto) Absolute Nucleated RBC Nucleated RBC % (auto) Smear Tech's Comments PT INR VBG pH VBG pCO2 VBG pO2 VBG HCO3 VBG O2 Saturation VBG Base Excess Sodium Potassium Chloride Carbon Dioxide Anion Gap BUN Creatinine Estim Creat Clear Calc Estimated GFR POC Glucose 256 H 210 H Random Glucose Calcium Magnesium Total Bilirubin AST ALT Alkaline Phosphatase Troponin I High Sens B-Natriuretic Peptide Total Protein Albumin Urine Color Yellow Urine Appearance Clear Urine pH 6.5 Ur Specific [place] 1.010 Urine Protein Negative Urine Glucose (UA) 250 H Urine Ketones 15 Urine Blood Negative Urine Nitrite Negative Ur Leukocyte Esterase Negative Influenza Type A (PCR) Influenza Type B (PCR) RSV RNA Qual (PCR) SARS-CoV-2 RNA (RT-PCR) Imaging Radiologist's impression: Impressions Chest X-Ray 03/09/24 11:05 IMPRESSION: Chronic interstitial lung disease. No acute airspace disease. Electronically signed by: Rolando Lee MD 03/09/2024 03:03 PM EDT RP Assessment and Plan (1) Chest pain: Status: Acute Patient present with chest pain syndrome with negative troponins although EKG changes. These findings are highly suggestive of RV strain and worsening pulmonary hypertension with hypoxemia and causing further cor pulmonale. This is not suggestive of acute coronary syndrome. EKG changes also suggestive of RV strain. Unfortunately no significant treatment options. I would consider giving her low-dose Cardizem to reduce tachycardic response to exercise although she is likely having compensated sinus tachycardia to markedly limited cardiopulmonary reserve. She also has gradually progressive deconditioning related to her age and underlying cardiopulmonary atrial limitation. (2) Acute on chronic respiratory failure with hypoxia: Status: Acute Acute on chronic respiratory failure secondary to interstitial pulmonary fibrosis with causing secondary cor pulmonale with significant pulmonary hypertension and RV dysfunction. Treatment would be to correct her hypoxemia. Hypoxemic gets worse with exertion which likely results in compensated sinus tachycardia which further worsens her symptoms. Unfortunately there is no significant treatment options for it. Low-dose Cardizem can be tried although with anecdotal success. Continue oxygen therapy. Overall prognosis is poor. Consider palliative care. Will sign of the case. Thank you for allowing me to partake in care Procedures Date of Service Date of Service: 03/10/24
[2024-03-10] MEDS: dilTIAZem HCL 30 MG TABLET PO (13:22)
[2024-03-10 16:24] LABS: Glucose, Whole Blood 73 mg/dL (60-115)
[2024-03-10] MEDS: Enoxaparin Sodium 40 MG/0.4 ML SYRINGE SUBCUT (16:56)
[2024-03-10 18:59] LABS: Glucose, Whole Blood 285 mg/dL (60-115)
--- NOTE | 2024-03-10 19:06 | ECG_ITS ---
Test Reason : CP Blood Pressure : / mmHG Vent. Rate : 086 BPM Atrial Rate : 086 BPM P-R Int : 144 ms QRS Dur : 080 ms QT Int : 380 ms P-R-T Axes : 043 -29 -13 degrees QTc Int : 454 ms Normal sinus rhythm T wave abnormality, consider anterolateral ischemia Abnormal ECG When compared with ECG of 09-MAR-2024 11:14, QT has shortened Referred By: Victorino Gramajo Electronically Signed By:GIBSON CONROY
--- NOTE | 2024-03-10 19:14 | PC.NURSE ---
at 1830 pt started experiencing sudden onset confusion, she could only tell me her name. Slight facial droop noted. equal strength in extremities She stated she thought she was at home and her left the doors and window open. Vitals 136/66, pulse 86, 97.7 02 100, Blood sugar 280. She was axo x4 all day previous Rapid response was called
[2024-03-10] MEDS: iohexoL 350 MG/ML 100 ML INFUS..BTL IV (19:44)
[2024-03-10 20:03] LABS: Anion Gap 12 (12-20); Blood Urea Nitrogen 12 mg/dL (9-16); Calcium 9.4 mg/dL (8.4-10.2); Carbon Dioxide 33 mmol/L (22-29); Chloride 95 mmol/L (96-108); Creatinine Clr Calc Pharmacy 51.9; Estimated Glomerular Filt Rate > 60; Glucose Random 290 mg/dL (60-115); Potassium 4.4 mmol/L (3.3-5.1); Sodium 136 mmol/L (135-145)
[2024-03-10 20:09] LABS: B Type Natriuretic Peptide 98 pg/mL (<100)
--- NOTE | 2024-03-10 20:57 | PM.EVENT ---
Event Note Date of Service: 03/11/24 Event Note: 7:10 PM - MESSAGE BROKER DEVELOPER activated - right facial dropped. Interview addressed in Indonesian without needing japanese interpreter. Patient c/o feeling very anxious, mild retrosternal chest pain. Denied shortness of breath, focal weakness and facial numbness. Daughter mentioned patient has been confused at times. On my evaluation patient seems anxious, alert and oriented X3. I do not appreciate a significant right facial droop and if any is very minimal, PERRL, EOMI, strenght 5/5 in all muscles group and no speech difficulty. Cardiopulmonary exam showed RRR, no murmus and bibasilar dry crackles (velcro-like soungs; chronic sounds). VS are normal, patient is on 3L/min (she has been on 3L/min since admission). BG stat 285. NIH = 1 8:30 PM - Patient is asymptomatic and calm. ECG stat showed T-wave inversion in inferolateral leads which are chronic. Troponin is negative. All other blood workup is unremarkable. Head CT scan + head and neck CTA are unremarkable. Discussed with Neurology --> no candidate for tPA. Check brain MRI in the morning. Continue aspirin and atorvastatin. Labs, imaging results and plan have been discussed with patient and her daughter; they are agreeable. Time Spent With Patient Time: Total time managing care of this patient today ____ minutes.
[2024-03-10] MEDS: Gabapentin 300 MG CAPSULE PO (21:22)
[2024-03-10] MEDS: Atorvastatin Calcium 40 MG TABLET PO (21:22)
[2024-03-10] MEDS: Insulin Glargine,Hum.rec.anlog 100 UNIT/ML 10 ML VIAL 14 UNIT SUBCUT (21:23)
[2024-03-10 21:38] LABS: D Dimer High Sensitivity 399 NG/ML
[2024-03-10 21:51] LABS: Glucose, Whole Blood 287 mg/dL (60-115)
[2024-03-11] VITALS (10 sets, daily range): BP systolic 110–141; BP diastolic 54–73; PULSE 76–88; RESP 15–22; TEMP 36–36.6; O2SAT 95–100
[2024-03-11] MEDS: methylPREDNISolone Sod Succ 40 MG/ML VIAL IVPUSH ×2 (00:41→11:12)
[2024-03-11] MEDS: dilTIAZem HCL 30 MG TABLET PO ×3 (00:41→20:51)
[2024-03-11 07:40] LABS: Glucose, Whole Blood 215 mg/dL (60-115)
[2024-03-11 07:56] LABS: Troponin-I High Sensitivity < 2.7 ng/L (<3.5-17.0)
[2024-03-11] MEDS: Furosemide 40 MG TABLET PO (08:03)
[2024-03-11] MEDS: Tamsulosin HCL 0.4 MG CAPSULE PO (08:03)
[2024-03-11] MEDS: Aspirin Enteric Coated 81 MG TABLET.DR PO (08:03)
[2024-03-11] MEDS: Magnesium Oxide 400 MG TABLET PO ×2 (08:03→15:50)
[2024-03-11] MEDS: DULoxetine HCl 60 MG CAPSULE.DR PO (08:03)
[2024-03-11] MEDS: mycophenolate mofetiL 250 MG CAPSULE 500 MG PO ×2 (08:03→20:51)
[2024-03-11] MEDS: Cholecalciferol (Vitamin D3) 25 MCG TABLET 50 MCG PO (08:04)
[2024-03-11] MEDS: glipiZIDE 5 MG TABLET PO (08:04)
[2024-03-11] MEDS: 0.9 % Sodium Chloride Flush 3 ML SYRINGE IVFLUSH ×3 (08:04→20:53)
[2024-03-11] MEDS: Insulin Lispro 100 UNIT/ML 3 ML VIAL SUBCUT ×4 (08:04→20:52)
[2024-03-11] MEDS: Albuterol/Iprat 2.5/0.5MG 3 ML AMPUL.NEB INHALE ×4 (08:25→20:27)
--- NOTE | 2024-03-11 09:59 | PM.NEUROCN ---
History of Present Illness Data of Consult Service Date: 03/11/24 Primary Care Provider: Ciro Daniel MD [facility] Reason for consult: Facial asymmetry 83 years old woman with underlying history of restrictive lung disease resulting in COPD type of picture and right heart failure was being treated for pulmonary issues when she was noted to have facial asymmetry yesterday and a stroke alert was started. She had a CT and CTA of brain and neck not revealing any significant abnormality. Hospitalist noted that her face was maybe mildly asymmetrical and that was the only focal finding. With that information, she was not considered a candidate for more aggressive treatment such as TNK. Now she was doing fine with no symptoms. There was no associated mental confusion or seizure-like activity. There was no pain. Review of Systems Review of Systems: Recent shortness of breath related to pulmonary disease PMFSH Past Medical History Medical History Chest pain Pulmonary hypertension Hip pain, left Bilateral hip pain Respiratory tract infection Interstitial lung disease Viral pneumonia Pneumonitis Right lower quadrant abdominal pain UTI (urinary tract infection) Mass on back H/O thrombocytosis COPD with acute exacerbation Pneumonia Weakness Constipation Opacities of both lungs present on chest x-ray Elevated WBC count Viral syndrome Asthma-COPD overlap syndrome Chronic respiratory failure Acute and chronic respiratory failure Generalized anxiety disorder Urinary incontinence CVA (cerebral vascular accident) Osteopenia Lumbar spinal stenosis Interstitial pulmonary fibrosis Insomnia Cystocele Hypertension Hypercholesterolemia Type 2 diabetes mellitus with hyperglycemia Surgical History Surgical History Hx of section Social History Social History Household Members: Significant Other Housing: House Do you presently have visiting nurse or other home services: No Alcohol intake: former Patient Tobacco Use Status: Never used Tobacco Tobacco use type: Cigarette Smoked in Last 30 Days: No e-Cigarette/Vaping Use: Never Used Second Hand Smoke Exposure: No Use of substances other than those prescribed or required for medical reasons: No Currently Displaying Signs/Symptoms of Drug Intoxication Withdrawal: No Have you been hit, kicked, punched, or otherwise hurt by someone within the past year? If so, by whom?: No Do you feel safe in your current relationship?: No Advance Directives: Yes Advance Directives on File: Yes Advance Directives Date on File: 10/15/23 Do you have a plan to hurt others: No Plan Recently lost weight without trying: Unsure Patient : No service: No Current occupational status: retired Cognitive needs: Yes ([employer] at home) Hearing needs: No Vision needs: Yes Meds Allergies Allergy/AdvReac Type Severity Reaction Status Date / Time No Known Allergies Allergy Verified 03/09/24 10:57 Active Medications: Current Medications Acetaminophen (Acetaminophen 325 Mg Tablet) 650 mg PO Q6H PRN PRN Reason: Pain, Mild (Pain Scale 1-3), fever or headache Albuterol/Ipratropium (Albuterol/Iprat 2.5/0.5mg 3 Ml Ampul.Cristobal) 3 ml INHALE RQ4H WHILE AWAKE [facility] Last Admin: 03/11/24 08:25 Dose: 3 ml Aspirin (Aspirin Enteric Coated 81 Mg Tablet.) 81 mg PO DAILY [facility] Last Admin: 03/11/24 08:03 Dose: 81 mg Atorvastatin Calcium (Atorvastatin Calcium 40 Mg Tablet) 40 mg PO BEDTIME [facility] Last Admin: 03/10/24 21:22 Dose: 40 mg Calcium Carbonate (Calcium Carbonate 750 Mg Tab.Chew) 750 mg PO Q4H PRN PRN Reason: Heartburn Diltiazem HCl (Diltiazem Hcl 30 Mg Tablet) 30 mg PO BID [facility]; Protocol Last Admin: 03/11/24 08:03 Dose: 30 mg Duloxetine HCl (Duloxetine Hcl 60 Mg Capsule.) 60 mg PO DAILY [facility] Last Admin: 03/11/24 08:03 Dose: 60 mg Enoxaparin Sodium (Enoxaparin Sodium 40 Mg/0.4 Ml Syringe) 40 mg SUBCUT Q24H [facility] Last Admin: 03/10/24 16:56 Dose: 40 mg Furosemide (Furosemide 40 Mg Tablet) 40 mg PO DAILY [facility]; Protocol Last Admin: 03/11/24 08:03 Dose: 40 mg Gabapentin (Gabapentin 300 Mg Capsule) 300 mg PO BEDTIME [facility] Last Admin: 03/10/24 21:22 Dose: 300 mg Glipizide (Glipizide 5 Mg Tablet) 5 mg PO DAILY [facility] Last Admin: 03/11/24 08:04 Dose: 5 mg Glucose (Glucose Gel 15 Gm Gel..Gram.) 15 gm PO Q15M PRN; Protocol PRN Reason: per Hypoglycemia Standing Ord. Dextrose (D10) 250 mls @ 750 mls/hr IV Q15M PRN; Protocol PRN Reason: per Hypoglycemia Standing Ord. Insulin Glargine (Insulin Glargine,Hum.Rec.Anlog 100 Unit/Ml 10 Ml Vial) 14 unit SUBCUT BEDTIME [facility] Last Admin: 03/10/24 21:23 Dose: 14 unit Insulin Human Lispro (Insulin Lispro 100 Unit/Ml 3 Ml Vial) 0 unit SUBCUT QIDACHS [facility]; Protocol Last Admin: 03/11/24 08:04 Dose: 4 unit Magnesium Hydroxide (Milk Of Magnesia 30 Ml Oral.Susp) 30 ml PO DAILY PRN PRN Reason: Constipation Magnesium Oxide (Magnesium Oxide 400 Mg Tablet) 400 mg PO BIDAC [facility] Last Admin: 03/11/24 08:03 Dose: 400 mg Melatonin (Melatonin 3 Mg Tablet) 6 mg PO BEDTIME PRN PRN Reason: Insomnia Methylprednisolone Sodium Succinate (Methylprednisolone Sod Succ 40 Mg/Ml Vial) 40 mg IVPUSH Q12H [facility] Last Admin: 03/11/24 00:41 Dose: 40 mg Mycophenolate Mofetil (Mycophenolate Mofetil 250 Mg Capsule) 500 mg PO BID [facility] Last Admin: 03/11/24 08:03 Dose: 500 mg Ondansetron HCl (Ondansetron Hcl 4 Mg/2 Ml Vial) 4 mg IVPUSH Q8H PRN PRN Reason: Nausea and Vomiting Senna/Docusate Sodium (Sennosides/Docusate Sodium Tablet) 2 tab PO BEDTIME [facility] Last Admin: 03/10/24 22:12 Dose: Not Given Sodium Chloride (0.9 % Sodium Chloride Flush 3 Ml Syringe) 3 ml IVFLUSH QSHIFT [facility] Last Admin: 03/11/24 08:04 Dose: 3 ml Tamsulosin HCl (Tamsulosin Hcl 0.4 Mg Capsule) 0.4 mg PO DAILY [facility] Last Admin: 03/11/24 08:03 Dose: 0.4 mg Vitamin D (Cholecalciferol (Vitamin D3) 25 Mcg Tablet) 50 mcg PO DAILY [facility] Last Admin: 03/11/24 08:04 Dose: 50 mcg Home Medications ?Medication ?Instructions ?Recorded ?Confirmed ?Last Taken ?Type Oxygen Home Use 10/23/22 02/28/24 Unknown History acetaminophen 500 mg tablet 1,000 mg PO TID PRN Pain 10/08/23 03/09/24 02/10/24 01:00 History atorvastatin 40 mg tablet 40 mg PO BEDTIME 02/10/24 03/09/24 1 Day Ago History ~03/08/24 magnesium oxide 400 mg (241.3 mg 400 mg PO BIDAC 02/24/24 03/09/24 1 Day Ago History magnesium) tablet ~03/08/24 sennosides 8.6 mg-docusate sodium 2 tab PO BEDTIME 02/24/24 03/09/24 1 Day Ago History 50 mg tablet (Stimulant Laxative ~03/08/24 Plus) tamsulosin 0.4 mg capsule 0.4 mg PO DAILY 02/24/24 03/09/24 1 Day Ago History ~03/08/24 insulin glargine 100 unit/mL (3 20 unit subcut DAILY@1300 03/09/24 03/09/24 1 Day Ago History mL) subcutaneous pen (Lantus ~03/08/24 Solostar U-100 Insulin) loratadine 10 mg tablet 10 mg PO DAILY 03/09/24 03/09/24 1 Day Ago History ~03/08/24 Physical Exam Vital Signs: Vital Signs: Last Vital Signs Temp 96.9 F 03/11/24 07:47 Pulse 83 03/11/24 08:27 Resp 16 03/11/24 08:27 BP 124/71 03/11/24 07:47 Pulse Ox 96 03/11/24 07:47 O2 Del Method Nasal Cannula 03/11/24 07:47 O2 Flow Rate 2 03/11/24 07:47 Oxygen Flow Rate 2 03/10/24 19:27 BMI result Body Mass Index 20.8 Neuro: Other: She is alert and awake with normal spontaneity of speech and comprehension. She did not speak Azerbaijani. She followed commands without difficulty. There was no significant facial asymmetry. Teeth were missing complicating the picture. Visual francis are full. There was no focal weakness and plantars were flexor. Results Labs 03/09/24 11:34 03/10/24 19:18 Labs: BMP 03/10/24 19:18 Sodium 136 Potassium 4.4 Chloride 95 L Carbon Dioxide 33 H BUN 12 Creatinine 0.66 Calcium 9.4 Brain imaging revealed moderately severe chronic microvascular ischemic type of picture. Echocardiogram revealed right heart failure an EKG revealed sinus rhythm. Assessment and Plan (1) Cerebral microvascular disease: Status: Acute (2) Transient ischemic attack: Status: Acute 83 years old woman with underlying restrictive lung disease and associated right heart failure has significant amount of chronic microvascular ischemic disease of brain. Last night, she had facial asymmetry. On examination now it was difficult to see any facial asymmetry. Otherwise examination was nonfocal. She might have a microvascular transient ischemic attack. Mainstay of management is anti-platelet agent statin and control of pulmonary/cardiac disease. Procedures Date of Service Date of Service: 03/11/24
[2024-03-11 11:08] LABS: Glucose, Whole Blood 349 mg/dL (60-115)
--- NOTE | 2024-03-11 15:20 | P.PNIM_ITS ---
Subjective Subjective Date of Service: 03/11/24 Interval History: Events from last night noted, there was concern for right facial droop, retrosternal chest pain, anxiety patient had normal vital signs, head CT and head and neck CT were unremarkable , neurology recommended MRI and patient was continued on aspirin and Lipitor. This morning patient awake alert, feels tired, otherwise denies shortness of breath, no chest pain, has history of intermittent right and left-sided chest pain with activity, and was started on Cardizem 30 mg b.i.d. yesterday, since was noted to have sinus tachycardia with activity likely cause of chest discomfort. Daughter at bedside assisted in history taking. Review of Systems All other system reviewed and are negative. Constitutional Constitutional: Reports lethargy and Reports weakness Cardiovascular Cardiovascular: Denies Abdominal Distension, Reports chest pain, Denies rapid heart rate, Denies leg edema, Denies lightheadedness, Denies Loss of Consciousness, Reports dyspnea and Reports dyspnea on exertion Respiratory Respiratory: Reports cough, Reports dyspnea and Reports dyspnea on exertion Gastrointestinal Gastrointestinal: Reports no additional gastrointestinal complaints Musculoskeletal Musculoskeletal: Reports no additional musculoskeletal complaints Integumentary/Breasts Skin/Breast: Reports no additional skin complaints Neurologic Neurologic: Reports system reviewed and no additional complaints, except as documented and Reports weakness Endocrine Endocrine: Reports no additional endocrine complaints Physical Exam 2 Vital Signs: Vital Signs: Last Vital Signs Temp 96.8 F 03/11/24 11:19 Pulse 84 03/11/24 11:39 Resp 18 03/11/24 11:39 BP 141/69 H 03/11/24 11:19 Pulse Ox 100 03/11/24 11:19 O2 Del Method Nasal Cannula 03/11/24 11:19 O2 Flow Rate 8 03/11/24 11:19 Oxygen Flow Rate 2 03/10/24 19:27 BMI result Body Mass Index 20.8 Const: Other: General awake alert x3, in no acute distress. Neck supple no JVD. CVS regular rate rhythm, Respiratory lungs bibasilar dry crackles ,no wheeze, no rhonchi. Gastrointestinal abdomen soft, non tender, bowel sounds audible Extremities no edema. Neuro non focal , no facial asymmetry noted. Skin no rash Psych appropriate affect Objective Data Active Medications Acetaminophen (Acetaminophen 325 Mg Tablet) 650 mg PO Q6H PRN PRN Reason: Pain, Mild (Pain Scale 1-3), fever or headache Albuterol/Ipratropium (Albuterol/Iprat 2.5/0.5mg 3 Ml Ampul.Neb) 3 ml INHALE RQ4H WHILE AWAKE [facility] Last Admin: 03/11/24 11:38 Dose: 3 ml Documented By: SHAHRIAR Aspirin (Aspirin Enteric Coated 81 Mg Tablet.) 81 mg PO DAILY [facility] Last Admin: 03/11/24 08:03 Dose: 81 mg Documented By: KAYLA Atorvastatin Calcium (Atorvastatin Calcium 40 Mg Tablet) 40 mg PO BEDTIME [facility] Last Admin: 03/10/24 21:22 Dose: 40 mg Documented By: CHUCK Calcium Carbonate (Calcium Carbonate 750 Mg Tab.Chew) 750 mg PO Q4H PRN PRN Reason: Heartburn Diltiazem HCl (Diltiazem Hcl 30 Mg Tablet) 30 mg PO BID [facility]; Protocol Last Admin: 03/11/24 08:03 Dose: 30 mg Documented By: KAYLA Duloxetine HCl (Duloxetine Hcl 60 Mg Capsule.) 60 mg PO DAILY [facility] Last Admin: 03/11/24 08:03 Dose: 60 mg Documented By: KAYLA Enoxaparin Sodium (Enoxaparin Sodium 40 Mg/0.4 Ml Syringe) 40 mg SUBCUT Q24H [facility] Last Admin: 03/10/24 16:56 Dose: 40 mg Documented By: LONG Furosemide (Furosemide 40 Mg Tablet) 40 mg PO DAILY [facility]; Protocol Last Admin: 03/11/24 08:03 Dose: 40 mg Documented By: KAYLA Gabapentin (Gabapentin 300 Mg Capsule) 300 mg PO BEDTIME [facility] Last Admin: 03/10/24 21:22 Dose: 300 mg Documented By: CHUCK Glipizide (Glipizide 5 Mg Tablet) 5 mg PO DAILY [facility] Last Admin: 03/11/24 08:04 Dose: 5 mg Documented By: KAYLA Glucose (Glucose Gel 15 Gm Gel..Gram.) 15 gm PO Q15M PRN; Protocol PRN Reason: per Hypoglycemia Standing Ord. Dextrose (D10) 250 mls @ 750 mls/hr IV Q15M PRN; Protocol PRN Reason: per Hypoglycemia Standing Ord. Insulin Glargine (Insulin Glargine,Hum.Rec.Anlog 100 Unit/Ml 10 Ml Vial) 14 unit SUBCUT BEDTIME [facility] Last Admin: 03/10/24 21:23 Dose: 14 unit Documented By: CHUCK Insulin Human Lispro (Insulin Lispro 100 Unit/Ml 3 Ml Vial) 0 unit SUBCUT QIDACHS [facility]; Protocol Last Admin: 03/11/24 11:11 Dose: 8 unit Documented By: KAYLA Magnesium Hydroxide (Milk Of Magnesia 30 Ml Oral.Susp) 30 ml PO DAILY PRN PRN Reason: Constipation Magnesium Oxide (Magnesium Oxide 400 Mg Tablet) 400 mg PO BIDAC [facility] Last Admin: 03/11/24 08:03 Dose: 400 mg Documented By: KAYLA Melatonin (Melatonin 3 Mg Tablet) 6 mg PO BEDTIME PRN PRN Reason: Insomnia Methylprednisolone Sodium Succinate (Methylprednisolone Sod Succ 40 Mg/Ml Vial) 40 mg IVPUSH Q12H [facility] Last Admin: 03/11/24 11:12 Dose: 40 mg Documented By: KAYLA Mycophenolate Mofetil (Mycophenolate Mofetil 250 Mg Capsule) 500 mg PO BID [facility] Last Admin: 03/11/24 08:03 Dose: 500 mg Documented By: KAYLA Ondansetron HCl (Ondansetron Hcl 4 Mg/2 Ml Vial) 4 mg IVPUSH Q8H PRN PRN Reason: Nausea and Vomiting Senna/Docusate Sodium (Sennosides/Docusate Sodium Tablet) 2 tab PO BEDTIME [facility] Last Admin: 03/10/24 22:12 Dose: Not Given Documented By: CHUCK Non-Admin Reason: Patient Refused Sodium Chloride (0.9 % Sodium Chloride Flush 3 Ml Syringe) 3 ml IVFLUSH QSHIFT [facility] Last Admin: 03/11/24 08:04 Dose: 3 ml Documented By: KAYLA Tamsulosin HCl (Tamsulosin Hcl 0.4 Mg Capsule) 0.4 mg PO DAILY [facility] Last Admin: 03/11/24 08:03 Dose: 0.4 mg Documented By: KAYLA Vitamin D (Cholecalciferol (Vitamin D3) 25 Mcg Tablet) 50 mcg PO DAILY [facility] Last Admin: 03/11/24 08:04 Dose: 50 mcg Documented By: KAYLA Labs 03/09/24 11:34 03/10/24 19:18 Labs: Laboratory Results - last 24 hr 03/10/24 03/10/24 03/10/24 16:15 18:56 19:17 Hold Purple Top D-Dimer High Sensitivty Hold Blue Top Anion Gap Estim Creat Clear Calc Estimated GFR POC Glucose 73 285 H Random Glucose Calcium Troponin I High Sens B-Natriuretic Peptide 98 03/10/24 03/10/24 03/10/24 19:18 21:09 21:46 Hold Purple Top SEE NOTE D-Dimer High Sensitivty 399 Hold Blue Top Cancelled Anion Gap 12 Estim Creat Clear Calc 51.9 Estimated GFR > 60 POC Glucose 287 H Random Glucose 290 H Calcium 9.4 Troponin I High Sens 4.0 B-Natriuretic Peptide 03/11/24 03/11/24 03/11/24 06:48 07:29 10:52 Hold Purple Top D-Dimer High Sensitivty Hold Blue Top Anion Gap Estim Creat Clear Calc Estimated GFR POC Glucose 215 H 349 H Random Glucose Calcium Troponin I High Sens < 2.7 B-Natriuretic Peptide Assessment and Plan (1) Chest pain: Status: Acute (2) Acute on chronic respiratory failure with hypoxia: Status: Acute (3) Shortness of breath: Status: Acute (4) Tachycardia: Status: Acute (5) Pulmonary hypertension: Status: Acute Plan 83-year-old Uzbek-speaking female with a PMH significant for?hronic hypoxic respiratory failure due to interstitial lung disease on 4L home O2 at rest and 6-8L on exertion, 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 Pt will be admitted to the hospital under observation for treatment and further evaluation of acute respiratory distress in the setting of chronic hypoxic respiratory failure due to ILD/COPD/severe persistent asthma. Questionable right facial droop ,confusion and chest pain last night All symptoms resolved, no acute encephalopathy noted, no acute CVA or TIA All workup for acute stroke negative, no acute changes noted in CT head, CT head and neck angiogram and MRI study, results given to patient and daughter at bedside Noted to have normal neuro examination, Has chronic intermittent chest pain with activity with normal troponin No further workup warranted. Will monitor Respiratory distress in the setting of acute on chronic hypoxic respiratory failure due to ILD/COPD/severe persistent asthma Resolved, stable oxygenation CXR showed no acute process, low concern for pneumonia, no sepsis ch.leukocytosis secondary to chronic steroid use cont.DuoNebs, transition to by mouth prednisone Monitor respiratory status Third hospitalization for similar symptoms declined pulmonary rehab during previous hospitalizations. Atypical chest pain and sinus tachycardia intermittent right-sided sharp, stabbing, nonradiating chest pain with activity , sinus tachycardia with activity. EKG with T-wave inversions in anteroseptal leads, no significant ST elevations or depressions, initial troponin 4.5 Consulted cardiology, EKG changes likely suggestive of RV strain with underlying severe pulmonary hypertension and hypoxia and compensatory tachycardia. Added Cardizem 30 mg b.i.d. with good heart rate control. HFpEF Not in acute exacerbation, continue home dose of Lasix Insulin-dependent type 2 diabetes Elevated blood sugars likely due to steroids, continue Sliding-scale insulin, Lantus and glipizide Hold metformin Hx of CVA Continue aspirin and statin HTN Hold losartan placed on Cardizem as above DNR/DNI, DVT Prophylaxis: Lovenox Pt will require continued inpatient hospitalization for close monitoring of hypoxia and sinus tachycardia requiring medication adjustment and tele monitoring, and to follow-up on event from last night. Quality Stroke Does the patient have a stroke diagnosis?: No VTE Prior VTE?: No VTE Risk Level:: Medical - moderate - high VTE Device Contraindication: Treatment Not Indicated VTE Drug Contraindication: N/A - Med Ordered
[2024-03-11] MEDS: Enoxaparin Sodium 40 MG/0.4 ML SYRINGE SUBCUT (15:50)
[2024-03-11 17:00] LABS: Glucose, Whole Blood 204 mg/dL (60-115)
[2024-03-11 19:37] LABS: Glucose, Whole Blood 295 mg/dL (60-115)
[2024-03-11] MEDS: Atorvastatin Calcium 40 MG TABLET PO (20:51)
[2024-03-11] MEDS: Gabapentin 300 MG CAPSULE PO (20:51)
[2024-03-11] MEDS: Insulin Glargine,Hum.rec.anlog 100 UNIT/ML 10 ML VIAL 14 UNIT SUBCUT (20:52)
[2024-03-12 04:00] VITALS: BP 129/72; PULSE 70; RESP 16; TEMP 36.4; O2SAT 100
[2024-03-12 07:13] LABS: Glucose, Whole Blood 108 mg/dL (60-115)
[2024-03-12] MEDS: Albuterol/Iprat 2.5/0.5MG 3 ML AMPUL.NEB INHALE ×2 (07:58→11:24)
[2024-03-12 07:59] VITALS: BP 136/72; PULSE 76; RESP 18; TEMP 36.4; O2SAT 96
[2024-03-12 08:00] VITALS: PULSE 77; RESP 18; O2SAT 95
[2024-03-12] MEDS: Aspirin Enteric Coated 81 MG TABLET.DR PO (08:55)
[2024-03-12] MEDS: Furosemide 40 MG TABLET PO (08:55)
[2024-03-12] MEDS: glipiZIDE 5 MG TABLET PO (08:55)
[2024-03-12] MEDS: mycophenolate mofetiL 250 MG CAPSULE 500 MG PO ×2 (08:55→21:30)
[2024-03-12] MEDS: Magnesium Oxide 400 MG TABLET PO ×2 (08:55→17:10)
[2024-03-12] MEDS: Tamsulosin HCL 0.4 MG CAPSULE PO (08:55)
[2024-03-12] MEDS: dilTIAZem HCL 30 MG TABLET PO ×2 (08:55→21:30)
[2024-03-12] MEDS: 0.9 % Sodium Chloride Flush 3 ML SYRINGE IVFLUSH ×3 (08:56→21:31)
[2024-03-12] MEDS: DULoxetine HCl 60 MG CAPSULE.DR PO (08:56)
[2024-03-12] MEDS: Cholecalciferol (Vitamin D3) 25 MCG TABLET 50 MCG PO (08:56)
[2024-03-12 11:11] LABS: Glucose, Whole Blood 131 mg/dL (60-115)
[2024-03-12 12:00] VITALS: BP 113/62; PULSE 83; RESP 18; TEMP 36.3; O2SAT 96
--- NOTE | 2024-03-12 12:45 | P.PNIM_ITS ---
Subjective Subjective Date of Service: 03/12/24 Interval History: Being followed for shortness of breath, intermittent right-sided chest pain/tachycardia with minimal activity, on 2 L of home oxygen at rest and 4 L with activity History of heart failure with preserved EF, CVA, hypertension, chronic thrombocytosis, COPD/asthma overlap syndrome/interstitial pulmonary fibrosis. This morning patient noted to have tachycardia hr 120s, requiring 6 L of oxygen at rest, complaining of right chest pain and right upper back pain. No acute events overnight, no weakness, no numbness History obtained via putty maker Review of Systems All other system reviewed and are negative Physical Exam 2 Vital Signs: Vital Signs: Last Vital Signs Temp 97.4 F 03/12/24 12:00 Pulse 83 03/12/24 12:00 Resp 18 03/12/24 12:00 BP 113/62 03/12/24 12:00 Pulse Ox 96 03/12/24 12:00 O2 Del Method Nasal Cannula 03/12/24 12:00 O2 Flow Rate 3 03/12/24 12:00 Oxygen Flow Rate 2 03/10/24 19:27 BMI result Body Mass Index 20.8 Const: Other: General awake alert x3, tachypneic, in no acute distress. Neck supple no JVD. CVS regular rate rhythm, Respiratory lungs bibasilar dry crackles ,no wheeze, no rhonchi. Gastrointestinal abdomen soft, non tender, bowel sounds audible Extremities no edema. Neuro non focal , no facial asymmetry noted. Skin no rash Psych appropriate affect Objective Data Active Medications Acetaminophen (Acetaminophen 325 Mg Tablet) 650 mg PO Q6H PRN PRN Reason: Pain, Mild (Pain Scale 1-3), fever or headache Albuterol/Ipratropium (Albuterol/Iprat 2.5/0.5mg 3 Ml Ampul.Neb) 3 ml INHALE RQ4H WHILE AWAKE [facility] Last Admin: 03/12/24 11:24 Dose: 3 ml Documented By: IVONNE Aspirin (Aspirin Enteric Coated 81 Mg Tablet.) 81 mg PO DAILY [facility] Last Admin: 03/12/24 08:55 Dose: 81 mg Documented By: KAYLA Atorvastatin Calcium (Atorvastatin Calcium 40 Mg Tablet) 40 mg PO BEDTIME [facility] Last Admin: 03/11/24 20:51 Dose: 40 mg Documented By: CHUCK Calcium Carbonate (Calcium Carbonate 750 Mg Tab.Chew) 750 mg PO Q4H PRN PRN Reason: Heartburn Diltiazem HCl (Diltiazem Hcl 30 Mg Tablet) 30 mg PO BID [facility]; Protocol Last Admin: 03/12/24 08:55 Dose: 30 mg Documented By: KAYLA Duloxetine HCl (Duloxetine Hcl 60 Mg Capsule.Dr) 60 mg PO DAILY [facility] Last Admin: 03/12/24 08:56 Dose: 60 mg Documented By: KAYLA Enoxaparin Sodium (Enoxaparin Sodium 40 Mg/0.4 Ml Syringe) 40 mg SUBCUT Q24H [facility] Last Admin: 03/11/24 15:50 Dose: 40 mg Documented By: KAYLA Furosemide (Furosemide 40 Mg Tablet) 40 mg PO DAILY [facility]; Protocol Last Admin: 03/12/24 08:55 Dose: 40 mg Documented By: KAYLA Gabapentin (Gabapentin 300 Mg Capsule) 300 mg PO BEDTIME [facility] Last Admin: 03/11/24 20:51 Dose: 300 mg Documented By: CHUCK Glipizide (Glipizide 5 Mg Tablet) 5 mg PO DAILY [facility] Last Admin: 03/12/24 08:55 Dose: 5 mg Documented By: KAYLA Glucose (Glucose Gel 15 Gm Gel..Gram.) 15 gm PO Q15M PRN; Protocol PRN Reason: per Hypoglycemia Standing Ord. Dextrose (D10) 250 mls @ 750 mls/hr IV Q15M PRN; Protocol PRN Reason: per Hypoglycemia Standing Ord. Insulin Glargine (Insulin Glargine,Hum.Rec.Anlog 100 Unit/Ml 10 Ml Vial) 14 unit SUBCUT BEDTIME [facility] Last Admin: 03/11/24 20:52 Dose: 14 unit Documented By: CHUCK Insulin Human Lispro (Insulin Lispro 100 Unit/Ml 3 Ml Vial) 0 unit SUBCUT QIDACHS [facility]; Protocol Last Admin: 03/12/24 11:19 Dose: Not Given Documented By: KAYLA Non-Admin Reason: No Insulin Coverage Magnesium Hydroxide (Milk Of Magnesia 30 Ml Oral.Susp) 30 ml PO DAILY PRN PRN Reason: Constipation Magnesium Oxide (Magnesium Oxide 400 Mg Tablet) 400 mg PO BIDAC [facility] Last Admin: 03/12/24 08:55 Dose: 400 mg Documented By: KAYLA Melatonin (Melatonin 3 Mg Tablet) 6 mg PO BEDTIME PRN PRN Reason: Insomnia Mycophenolate Mofetil (Mycophenolate Mofetil 250 Mg Capsule) 500 mg PO BID [facility] Last Admin: 03/12/24 08:55 Dose: 500 mg Documented By: KAYLA Ondansetron HCl (Ondansetron Hcl 4 Mg/2 Ml Vial) 4 mg IVPUSH Q8H PRN PRN Reason: Nausea and Vomiting Senna/Docusate Sodium (Sennosides/Docusate Sodium Tablet) 2 tab PO BEDTIME [facility] Last Admin: 03/11/24 20:59 Dose: Not Given Documented By: CHUCK Non-Admin Reason: Patient Refused Sodium Chloride (0.9 % Sodium Chloride Flush 3 Ml Syringe) 3 ml IVFLUSH QSHIFT [facility] Last Admin: 03/12/24 08:56 Dose: 3 ml Documented By: KAYLA Tamsulosin HCl (Tamsulosin Hcl 0.4 Mg Capsule) 0.4 mg PO DAILY [facility] Last Admin: 03/12/24 08:55 Dose: 0.4 mg Documented By: KAYLA Vitamin D (Cholecalciferol (Vitamin D3) 25 Mcg Tablet) 50 mcg PO DAILY [facility] Last Admin: 03/12/24 08:56 Dose: 50 mcg Documented By: KAYLA Labs 03/09/24 11:34 03/10/24 19:18 Labs: Laboratory Results - last 24 hr 03/11/24 03/11/24 03/12/24 16:56 19:33 06:58 POC Glucose 204 H 295 H 108 03/12/24 11:00 POC Glucose 131 H Assessment and Plan (1) Chest pain: Status: Acute (2) Respiratory distress: Status: Acute (3) Acute on chronic respiratory failure with hypoxia: Status: Acute Plan 83-year-old Sami-speaking female with a PMH significant for?hronic hypoxic respiratory failure due to interstitial lung disease on 4L home O2 at rest and 6-8L on exertion, 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 Pt will be admitted to the hospital under observation for treatment and further evaluation of acute respiratory distress in the setting of chronic hypoxic respiratory failure due to ILD/COPD/severe persistent asthma. Questionable right facial droop ,confusion and chest pain noted on 03/10 All symptoms resolved, no acute encephalopathy noted, no acute CVA or TIA All workup for acute stroke negative, no acute changes noted in CT head, CT head and neck angiogram and MRI study, results given to patient and daughter at bedside Noted to have normal neuro examination, No further workup warranted. Will monitor Respiratory distress in the setting of acute on chronic hypoxic respiratory failure due to ILD/COPD/severe persistent asthma/chfpef Intermittent shortness of breath, tachycardia and hypoxia with minimal activity CXR showed no acute process, low concern for pneumonia, no sepsis,nl BNP ch.leukocytosis secondary to chronic steroid use cont.DuoNebs changed to as needed due to tachycardia, transition to by mouth low-dose prednisone Wean oxygen to home dose 2 L at rest and 4 L with activity Monitor respiratory status Third hospitalization for similar symptoms declined pulmonary rehab during previous hospitalizations. Spoke with daughter at bedside she is agreeable to rehab however other family member are opposing Will address discharge plan with family. Atypical chest pain and sinus tachycardia intermittent right-sided sharp, stabbing, non radiating chest pain with activity , sinus tachycardia with activity. EKG with T-wave inversions in anteroseptal leads, no significant ST elevations or depressions, initial troponin 4.5 Consulted cardiology, EKG changes likely suggestive of RV strain with underlying severe pulmonary hypertension and hypoxia and compensatory tachycardia. Added Cardizem 30 mg b.i.d. HFpEF Not in acute exacerbation, continue home dose of Lasix 40mg Insulin-dependent type 2 diabetes Stable blood sugar continue Sliding-scale insulin, Lantus 14 u (home dose 20 units) and glipizide Hold metformin Hx of CVA Continue aspirin and statin HTN Hold losartan placed on Cardizem as above DNR/DNI, DVT Prophylaxis: Lovenox Pt will require continued inpatient hospitalization for close monitoring of hypoxia and sinus tachycardia requiring medication adjustment and tele monitoring, and will discuss safe disposition at a.m. with patient and family. Quality Stroke Does the patient have a stroke diagnosis?: No VTE Prior VTE?: No VTE Risk Level:: Medical - moderate - high VTE Device Contraindication: Treatment Not Indicated VTE Drug Contraindication: N/A - Med Ordered
[2024-03-12] MEDS: predniSONE 20 MG TABLET PO (14:48)
[2024-03-12 15:43] LABS: Glucose, Whole Blood 95 mg/dL (60-115)
[2024-03-12 15:56] VITALS: BP 104/62; PULSE 112; RESP 20; TEMP 36.1; O2SAT 97
[2024-03-12] MEDS: Enoxaparin Sodium 40 MG/0.4 ML SYRINGE SUBCUT (17:10)
[2024-03-12 20:00] VITALS: BP 119/56; PULSE 92; RESP 20; TEMP 36.8; O2SAT 98
[2024-03-12] MEDS: Sennosides/Docusate Sodium TABLET 2 TAB PO (21:30)
[2024-03-12] MEDS: Gabapentin 300 MG CAPSULE PO (21:30)
[2024-03-12] MEDS: Atorvastatin Calcium 40 MG TABLET PO (21:30)
[2024-03-12 21:43] LABS: Glucose, Whole Blood 361 mg/dL (60-115)
[2024-03-12] MEDS: Insulin Lispro 100 UNIT/ML 3 ML VIAL SUBCUT (21:58)
[2024-03-12] MEDS: Insulin Glargine,Hum.rec.anlog 100 UNIT/ML 10 ML VIAL 14 UNIT SUBCUT (21:58)
[2024-03-13] VITALS (8 sets, daily range): BP systolic 103–142; BP diastolic 55–69; PULSE 77–104; RESP 16–20; TEMP 36.1–36.8; O2SAT 95–100
[2024-03-13 07:35] LABS: Glucose, Whole Blood 74 mg/dL (60-115)
[2024-03-13] MEDS: Tamsulosin HCL 0.4 MG CAPSULE PO (08:36)
[2024-03-13] MEDS: Magnesium Oxide 400 MG TABLET PO ×2 (08:36→17:01)
[2024-03-13] MEDS: Furosemide 40 MG TABLET PO (08:36)
[2024-03-13] MEDS: Cholecalciferol (Vitamin D3) 25 MCG TABLET 50 MCG PO (08:36)
[2024-03-13] MEDS: predniSONE 20 MG TABLET PO (08:36)
[2024-03-13] MEDS: mycophenolate mofetiL 250 MG CAPSULE 500 MG PO ×2 (08:36→20:14)
[2024-03-13] MEDS: Aspirin Enteric Coated 81 MG TABLET.DR PO (08:36)
[2024-03-13] MEDS: dilTIAZem HCL 30 MG TABLET PO ×2 (08:36→20:14)
[2024-03-13] MEDS: glipiZIDE 5 MG TABLET PO (08:37)
[2024-03-13] MEDS: DULoxetine HCl 60 MG CAPSULE.DR PO (08:37)
[2024-03-13] MEDS: 0.9 % Sodium Chloride Flush 3 ML SYRINGE IVFLUSH ×3 (09:01→20:16)
[2024-03-13 11:08] LABS: Glucose, Whole Blood 91 mg/dL (60-115)
--- NOTE | 2024-03-13 15:27 | P.PNIM_ITS ---
Subjective Subjective Date of Service: 03/13/24 Interval History: This history was taken in Telugu from the patient. no dyspnea chronic dry cough Review of Systems Review of Systems: Yes all other systems are reviewed and are negative Physical Exam 2 Vital Signs: Vital Signs: Last Vital Signs Temp 96.9 F 03/13/24 11:02 Pulse 87 03/13/24 11:02 Resp 18 03/13/24 11:02 BP 121/68 03/13/24 11:02 Pulse Ox 100 03/13/24 11:02 O2 Del Method Nasal Cannula 03/13/24 11:02 O2 Flow Rate 2 03/13/24 11:02 Oxygen Flow Rate 2 03/10/24 19:27 BMI result Body Mass Index 20.8 Gen: in no acute distress HEENT: sclera anicteric, moist mucus membranes Neck: supple Lungs: dry crackles bilaterally on inspiration Heart: regular rate and rhythm, no murmurs Abd: soft, non-tender, non-distended Ext: no edema Skin: warm/well-perfused Neuro: alert and oriented x3, no focal findings, no facial droop Psych: appropriate affect Objective Data Active Medications Acetaminophen (Acetaminophen 325 Mg Tablet) 650 mg PO Q6H PRN PRN Reason: Pain, Mild (Pain Scale 1-3), fever or headache Albuterol/Ipratropium (Albuterol/Iprat 2.5/0.5mg 3 Ml Ampul.Neb) 3 ml INHALE RQ4H WHILE AWAKE PRN PRN Reason: sob Aspirin (Aspirin Enteric Coated 81 Mg Tablet.) 81 mg PO DAILY [facility] Last Admin: 03/13/24 08:36 Dose: 81 mg Documented By: JUAN ANTONIO Atorvastatin Calcium (Atorvastatin Calcium 40 Mg Tablet) 40 mg PO BEDTIME [facility] Last Admin: 03/12/24 21:30 Dose: 40 mg Documented By: FABIOLA Calcium Carbonate (Calcium Carbonate 750 Mg Tab.Chew) 750 mg PO Q4H PRN PRN Reason: Heartburn Diltiazem HCl (Diltiazem Hcl 30 Mg Tablet) 30 mg PO BID [facility]; Protocol Last Admin: 03/13/24 08:36 Dose: 30 mg Documented By: JUAN ANTONIO Duloxetine HCl (Duloxetine Hcl 60 Mg Capsule.) 60 mg PO DAILY [facility] Last Admin: 03/13/24 08:37 Dose: 60 mg Documented By: JUAN ANTONIO Enoxaparin Sodium (Enoxaparin Sodium 40 Mg/0.4 Ml Syringe) 40 mg SUBCUT Q24H [facility] Last Admin: 03/12/24 17:10 Dose: 40 mg Documented By: KAYLA Furosemide (Furosemide 40 Mg Tablet) 40 mg PO DAILY [facility]; Protocol Last Admin: 03/13/24 08:36 Dose: 40 mg Documented By: JUAN ANTONIO Gabapentin (Gabapentin 300 Mg Capsule) 300 mg PO BEDTIME [facility] Last Admin: 03/12/24 21:30 Dose: 300 mg Documented By: FABIOLA Glipizide (Glipizide 5 Mg Tablet) 5 mg PO DAILY [facility] Last Admin: 03/13/24 08:37 Dose: 5 mg Documented By: JUAN ANTONIO Glucose (Glucose Gel 15 Gm Gel..Gram.) 15 gm PO Q15M PRN; Protocol PRN Reason: per Hypoglycemia Standing Ord. Dextrose (D10) 250 mls @ 750 mls/hr IV Q15M PRN; Protocol PRN Reason: per Hypoglycemia Standing Ord. Insulin Glargine (Insulin Glargine,Hum.Rec.Anlog 100 Unit/Ml 10 Ml Vial) 14 unit SUBCUT BEDTIME [facility] Last Admin: 03/12/24 21:58 Dose: 14 unit Documented By: FABIOLA Comments: Insulin Human Lispro (Insulin Lispro 100 Unit/Ml 3 Ml Vial) 0 unit SUBCUT QIDACHS [facility]; Protocol Last Admin: 03/13/24 11:35 Dose: Not Given Documented By: JUAN ANTONIO Non-Admin Reason: No Insulin Coverage Magnesium Hydroxide (Milk Of Magnesia 30 Ml Oral.Susp) 30 ml PO DAILY PRN PRN Reason: Constipation Magnesium Oxide (Magnesium Oxide 400 Mg Tablet) 400 mg PO BIDAC [facility] Last Admin: 03/13/24 08:36 Dose: 400 mg Documented By: JUAN ANTONIO Melatonin (Melatonin 3 Mg Tablet) 6 mg PO BEDTIME PRN PRN Reason: Insomnia Mycophenolate Mofetil (Mycophenolate Mofetil 250 Mg Capsule) 500 mg PO BID [facility] Last Admin: 03/13/24 08:36 Dose: 500 mg Documented By: JUAN ANTONIO Ondansetron HCl (Ondansetron Hcl 4 Mg/2 Ml Vial) 4 mg IVPUSH Q8H PRN PRN Reason: Nausea and Vomiting Prednisone (Prednisone 20 Mg Tablet) 20 mg PO DAILY [facility] Last Admin: 03/13/24 08:36 Dose: 20 mg Documented By: JUAN ANTONIO Senna/Docusate Sodium (Sennosides/Docusate Sodium Tablet) 2 tab PO BEDTIME [facility] Last Admin: 03/12/24 21:30 Dose: 2 tab Documented By: FABIOLA Sodium Chloride (0.9 % Sodium Chloride Flush 3 Ml Syringe) 3 ml IVFLUSH QSHIFT [facility] Last Admin: 03/13/24 09:01 Dose: 3 ml Documented By: JUAN ANTONIO Tamsulosin HCl (Tamsulosin Hcl 0.4 Mg Capsule) 0.4 mg PO DAILY [facility] Last Admin: 03/13/24 08:36 Dose: 0.4 mg Documented By: JUAN ANTONIO Vitamin D (Cholecalciferol (Vitamin D3) 25 Mcg Tablet) 50 mcg PO DAILY [facility] Last Admin: 03/13/24 08:36 Dose: 50 mcg Documented By: JUAN ANTONIO Labs 03/09/24 11:34 03/10/24 19:18 Labs: Laboratory Results - last 24 hr 03/12/24 03/12/24 03/13/24 15:39 21:21 07:19 POC Glucose 95 361 H* 74 03/13/24 11:03 POC Glucose 91 Assessment and Plan (1) Chest pain: Status: Acute (2) Respiratory distress: Status: Acute (3) Acute on chronic respiratory failure with hypoxia: Status: Acute Plan d5 83yo F with chronic hypoxia due to ILD on 4L O2 at rest/6-8L O2 with exertion, COPD/asthma overlap on chronic prednisone, HFpEF, CVA, HTN, chronic thrombocytosis, DM2 presenting with tachycardia, dyspnea, and chest pain admitted for respiratory distress, also had possible facial droop 03/10 possible TIA though resolved quickly - no carotid stenosis, no infarct on MRI; continue ASA + atorvastatin as per Neurology and as for hx of prior CVA acute/chronic hypoxic resp failure due to ILD/COPD/asthma - transitioned from IV to PO steroids - wean to home O2 - contine nebs prn atypical chest pain tachycardia RV strain - due to worsening pHTN; Cardiology consulted; started on diltiazem to reduce tachycardia HFpEF, chronic - continue furosemide HTN - losartan changed to diltiazem as above ILD - continue mycophenolate DM2 - basal-bolus insulin, hold GPZ VTE ppx - enoxaparin dispo - PT recommends IPR as per prior admission as well, though there is family discord regarding dispo that remains to be worked out In my clinical judgment, the patient requires continued inpatient hospitalization for the following reasons: disposition Total time managing care of this patient today: 35 minutes. Quality Stroke Does the patient have a stroke diagnosis?: No VTE Prior VTE?: No VTE Risk Level:: Medical - moderate - high VTE Device Contraindication: Treatment Not Indicated VTE Drug Contraindication: N/A - Med Ordered
[2024-03-13 15:44] LABS: Glucose, Whole Blood 298 mg/dL (60-115)
--- NOTE | 2024-03-13 16:18 | MHC.CM.PN ---
CM MET WITH PT EARLIER IN THE DAY WITH A [employer] OR [employer]RE CONTROLLER TO DISCUSS DC PLANS PT REPORTS SHE DOES NOT WANT TO GO TO STR BECAUSE HER AND SON DO NOT THINK SHE WILL BE CARED FOR SHE SAYS SHE HAS VNA SERVICES AT HOME AND FAMILY IS TRYING TO GET MORE CARE SHE GAVE CM PERMISSION TO CALL HER DAUGHTER ANNEMARIE, TO DISCUSS THE CARE ARRANGEMENTS THEY ARE WORKING ON CM CALLED ANNEMARIE WHO REPORTS THE PT HAS 32 TACKING MACHINE OPERATOR HOURS PER WEEK, HOWEVER THEY DO NOT THINK IT IS ENOUGH AND WANT HER TO HAVE 24/7 TACKING MACHINE OPERATOR HOURS. ANNEMARIE SAYS HER FATHER AND BROTHER ARE NOT REALISTIC AND THINK WHOEVER IS HER TACKING MACHINE OPERATOR SHOULD BE TURRET LATHE TENDER ALL THE TIME. SHE SAYS SHE WAS THE TACKING MACHINE OPERATOR, BUT HAD TO STOP BECAUSE THEY WERE CALLING HER AT ALL HOURS EVEN WHEN SHE WAS AT HER FT JOB. SHE SAYS SHE IS ALSO THE ONLY ONE THAT THINKS THE PT SHOULD GO TO STR BECAUSE SHE JUST KEEPS GOING THROUGH THIS. SHE SAID SHE WAS GOING TO P/U HER FATHER AND WOULD BE BEDSIDE BEFORE 1630 HOURS TO DISCUSS WITH PT AND DAGO MET WITH PT, HER AND HER DAUGHTER TO DISCUSS BENEFITS OF STR PT HAS AGREED TO CONSIDER IT AND WILL PROVIDE A FINAL ANSWER TOMORROW MORNING
[2024-03-13] MEDS: Enoxaparin Sodium 40 MG/0.4 ML SYRINGE SUBCUT (17:01)
[2024-03-13] MEDS: Insulin Lispro 100 UNIT/ML 3 ML VIAL SUBCUT ×2 (17:01→20:15)
[2024-03-13 20:13] LABS: Glucose, Whole Blood 154 mg/dL (60-115)
[2024-03-13] MEDS: Atorvastatin Calcium 40 MG TABLET PO (20:14)
[2024-03-13] MEDS: Gabapentin 300 MG CAPSULE PO (20:14)
[2024-03-13] MEDS: Sennosides/Docusate Sodium TABLET 2 TAB PO (20:14)
[2024-03-13] MEDS: Insulin Glargine,Hum.rec.anlog 100 UNIT/ML 10 ML VIAL 14 UNIT SUBCUT (20:15)
[2024-03-14 06:59] VITALS: BP 123/60; PULSE 76; RESP 18; TEMP 36.1; O2SAT 99
[2024-03-14 07:06] LABS: Glucose, Whole Blood 98 mg/dL (60-115)
[2024-03-14] MEDS: Furosemide 40 MG TABLET PO (08:15)
[2024-03-14] MEDS: Magnesium Oxide 400 MG TABLET PO ×2 (08:15→16:43)
[2024-03-14] MEDS: dilTIAZem HCL 30 MG TABLET PO (08:15)
[2024-03-14] MEDS: DULoxetine HCl 60 MG CAPSULE.DR PO (08:15)
[2024-03-14] MEDS: mycophenolate mofetiL 250 MG CAPSULE 500 MG PO (08:15)
[2024-03-14] MEDS: predniSONE 20 MG TABLET PO (08:16)
[2024-03-14] MEDS: Cholecalciferol (Vitamin D3) 25 MCG TABLET 50 MCG PO (08:16)
[2024-03-14] MEDS: Aspirin Enteric Coated 81 MG TABLET.DR PO (08:16)
[2024-03-14] MEDS: Tamsulosin HCL 0.4 MG CAPSULE PO (08:16)
[2024-03-14] MEDS: 0.9 % Sodium Chloride Flush 3 ML SYRINGE IVFLUSH ×2 (08:22→16:43)
[2024-03-14 09:36] VITALS: BP 123/60; PULSE 76; O2SAT 99
[2024-03-14 10:43] VITALS: BP 121/67; PULSE 106; RESP 20; TEMP 36.8; O2SAT 100
[2024-03-14 10:49] LABS: Glucose, Whole Blood 243 mg/dL (60-115)
[2024-03-14] MEDS: Insulin Lispro 100 UNIT/ML 3 ML VIAL SUBCUT ×2 (11:58→16:43)
--- NOTE | 2024-03-14 12:40 | P.PNIM_ITS ---
Subjective Subjective Date of Service: 03/14/24 Interval History: This history was taken in Croatian from the patient. Dry cough, her usual baseline No chest pain Review of Systems Review of Systems: Yes all other systems are reviewed and are negative Physical Exam 2 Vital Signs: Vital Signs: Last Vital Signs Temp 98.3 F 03/14/24 10:43 Pulse 106 H 03/14/24 10:43 Resp 20 03/14/24 10:43 BP 121/67 03/14/24 10:43 Pulse Ox 100 03/14/24 10:43 O2 Del Method Nasal Cannula 03/14/24 10:43 O2 Flow Rate 2 03/14/24 10:43 Oxygen Flow Rate 2 03/10/24 19:27 BMI result Body Mass Index 20.8 Gen: in no acute distress HEENT: sclera anicteric, moist mucus membranes Neck: supple Lungs: dry crackles bilaterally on inspiration Heart: regular rate and rhythm, no murmurs Abd: soft, non-tender, non-distended Ext: no edema Skin: warm/well-perfused Neuro: alert and oriented x3, no focal findings, no facial droop Psych: appropriate affect Objective Data Active Medications Acetaminophen (Acetaminophen 325 Mg Tablet) 650 mg PO Q6H PRN PRN Reason: Pain, Mild (Pain Scale 1-3), fever or headache Albuterol/Ipratropium (Albuterol/Iprat 2.5/0.5mg 3 Ml Ampul.Neb) 3 ml INHALE RQ4H WHILE AWAKE PRN PRN Reason: sob Aspirin (Aspirin Enteric Coated 81 Mg Tablet.) 81 mg PO DAILY [facility] Last Admin: 03/14/24 08:16 Dose: 81 mg Documented By: JUAN ANTONIO Atorvastatin Calcium (Atorvastatin Calcium 40 Mg Tablet) 40 mg PO BEDTIME [facility] Last Admin: 03/13/24 20:14 Dose: 40 mg Documented By: ANJU Calcium Carbonate (Calcium Carbonate 750 Mg Tab.Chew) 750 mg PO Q4H PRN PRN Reason: Heartburn Diltiazem HCl (Diltiazem Hcl 30 Mg Tablet) 30 mg PO BID [facility]; Protocol Last Admin: 03/14/24 08:15 Dose: 30 mg Documented By: JUAN ANTONIO Duloxetine HCl (Duloxetine Hcl 60 Mg Capsule.) 60 mg PO DAILY [facility] Last Admin: 03/14/24 08:15 Dose: 60 mg Documented By: JUAN ANTONIO Enoxaparin Sodium (Enoxaparin Sodium 40 Mg/0.4 Ml Syringe) 40 mg SUBCUT Q24H [facility] Last Admin: 03/13/24 17:01 Dose: 40 mg Documented By: JUAN ANTONIO Furosemide (Furosemide 40 Mg Tablet) 40 mg PO DAILY [facility]; Protocol Last Admin: 03/14/24 08:15 Dose: 40 mg Documented By: JUAN ANTONIO Gabapentin (Gabapentin 300 Mg Capsule) 300 mg PO BEDTIME [facility] Last Admin: 03/13/24 20:14 Dose: 300 mg Documented By: ANJU Glucose (Glucose Gel 15 Gm Gel..Gram.) 15 gm PO Q15M PRN; Protocol PRN Reason: per Hypoglycemia Standing Ord. Dextrose (D10) 250 mls @ 750 mls/hr IV Q15M PRN; Protocol PRN Reason: per Hypoglycemia Standing Ord. Insulin Glargine (Insulin Glargine,Hum.Rec.Anlog 100 Unit/Ml 10 Ml Vial) 14 unit SUBCUT BEDTIME [facility] Last Admin: 03/13/24 20:15 Dose: 14 unit Documented By: ANJU Insulin Human Lispro (Insulin Lispro 100 Unit/Ml 3 Ml Vial) 0 unit SUBCUT QIDACHS [facility]; Protocol Last Admin: 03/14/24 11:58 Dose: 4 unit Documented By: JUAN ANTONIO Magnesium Hydroxide (Milk Of Magnesia 30 Ml Oral.Susp) 30 ml PO DAILY PRN PRN Reason: Constipation Magnesium Oxide (Magnesium Oxide 400 Mg Tablet) 400 mg PO BIDAC [facility] Last Admin: 03/14/24 08:15 Dose: 400 mg Documented By: JUAN ANTONIO Melatonin (Melatonin 3 Mg Tablet) 6 mg PO BEDTIME PRN PRN Reason: Insomnia Mycophenolate Mofetil (Mycophenolate Mofetil 250 Mg Capsule) 500 mg PO BID [facility] Last Admin: 03/14/24 08:15 Dose: 500 mg Documented By: JUAN ANTONIO Ondansetron HCl (Ondansetron Hcl 4 Mg/2 Ml Vial) 4 mg IVPUSH Q8H PRN PRN Reason: Nausea and Vomiting Prednisone (Prednisone 20 Mg Tablet) 20 mg PO DAILY [facility] Last Admin: 03/14/24 08:16 Dose: 20 mg Documented By: JUAN ANTONIO Senna/Docusate Sodium (Sennosides/Docusate Sodium Tablet) 2 tab PO BEDTIME [facility] Last Admin: 03/13/24 20:14 Dose: 2 tab Documented By: ANJU Sodium Chloride (0.9 % Sodium Chloride Flush 3 Ml Syringe) 3 ml IVFLUSH QSHIFT [facility] Last Admin: 03/14/24 08:22 Dose: 3 ml Documented By: JUAN ANTONIO Tamsulosin HCl (Tamsulosin Hcl 0.4 Mg Capsule) 0.4 mg PO DAILY [facility] Last Admin: 03/14/24 08:16 Dose: 0.4 mg Documented By: JUAN ANTONIO Vitamin D (Cholecalciferol (Vitamin D3) 25 Mcg Tablet) 50 mcg PO DAILY [facility] Last Admin: 03/14/24 08:16 Dose: 50 mcg Documented By: JUAN ANTONIO Labs 03/09/24 11:34 03/10/24 19:18 Labs: Laboratory Results - last 24 hr 03/13/24 03/13/24 03/14/24 15:39 20:10 07:02 POC Glucose 298 H 154 H 98 03/14/24 10:45 POC Glucose 243 H Assessment and Plan (1) Chest pain: Status: Acute (2) Respiratory distress: Status: Acute (3) Acute on chronic respiratory failure with hypoxia: Status: Acute Plan d6 83yo F with chronic hypoxia due to ILD on 4L O2 at rest/6-8L O2 with exertion, COPD/asthma overlap on chronic prednisone, HFpEF, CVA, HTN, chronic thrombocytosis, DM2 presenting with tachycardia, dyspnea, and chest pain admitted for respiratory distress, also had possible facial droop 03/10 possible TIA though resolved quickly - no carotid stenosis, no infarct on MRI; continue ASA + atorvastatin as per Neurology and as for hx of prior CVA acute/chronic hypoxic resp failure due to ILD/COPD/asthma - transitioned from IV to PO steroids, continue to wean prednisone - wean to home O2 - continue nebs prn atypical chest pain tachycardia RV strain - due to worsening pHTN; Cardiology consulted; started on diltiazem to reduce tachycardia HFpEF, chronic - continue furosemide HTN - losartan changed to diltiazem as above ILD - continue mycophenolate DM2 - basal-bolus insulin, hold GPZ VTE ppx - enoxaparin dispo - PT recommends IPR as per prior admission as well, though there is family discord regarding dispo that remains to be worked out In my clinical judgment, the patient requires continued inpatient hospitalization for the following reasons: safe disposition Total time managing care of this patient today: 35 minutes. Quality Stroke Does the patient have a stroke diagnosis?: No VTE Prior VTE?: No VTE Risk Level:: Medical - moderate - high VTE Device Contraindication: Treatment Not Indicated VTE Drug Contraindication: N/A - Med Ordered
--- NOTE | 2024-03-14 14:48 | P.DS_ITS ---
DS: Providers Provider Date of Service: 03/14/24 Date of admission: 03/09/24 15:38 Date of discharge: 03/14/24 Primary care physician: Ciro Daniel MD Consults: 03/10/24 08:05 Consult to Cardiology Routine Consulting Provider: [facility] Reason for consultation: abnormal ekg with cp Has provider been notified: No 03/10/24 21:11 Consult to Neurology Routine Consulting Provider: [facility] Reason for consultation: right facial droop Has provider been notified: Yes DS: Diagnosis Discharge Diagnosis (1) Chest pain: Status: Acute (2) Respiratory distress: Status: Acute (3) Acute on chronic respiratory failure with hypoxia: Status: Acute (4) Transient ischemic attack: Status: Acute (5) Cerebral microvascular disease: Status: Acute (6) Pulmonary hypertension: Status: Acute (7) Tachycardia: Status: Acute (8) Interstitial pulmonary fibrosis: Status: Acute DS: Summary Hospital Course Hospital Course: From the history and physical by the admitting hospitalist, BREE Lehman, 03/09/24: Pt is an 83-year-old [place] Islander-speaking female with a PMH significant for?hronic hypoxic respiratory failure due to interstitial lung disease on 4L home O2 at rest and 6-8L on exertion, 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 Patient reports she has been experiencing intermittent right-sided sharp, stabbing, nonradiating chest pain and intermittent left-sided chest pain that feels like ?electrical shocks? the past 2-3 days. Denies any alleviating or exacerbating factors. This morning upon waking patient was noted to be tachycardic up into the 130s with increased work of breathing and shortness of breath. Chronic cough at baseline. Family notes patient has been declining the past few months with increased generalized weakness and difficulty ambulating around the home. She has had 2 recent hospitalizations: from 02/09-02/15 for acute on chronic hypoxic respiratory failure secondary to acute on chronic systolic CHF and pulmonary fibrosis/COPD/severe persistent asthma with acute decompensation; and then on 02/23-02/24 for similar symptoms. Patient was initially seen by PT who recommended pulmonary rehab, but family opted to discharge home with services. Patient lives with her who also has significant chronic medical conditions that limit his mobility. In the ED pt was tachycardic up to 101, tachypneic up to 22, and mildly hypertensive of 142/78. Labs were grossly unremarkable and around baseline for patient. Leukocytosis of 12.9, chronic, around baseline. Stable normocytic anemia of 9.4/30.3. Hepatic function baseline. Troponin 4.5. BNP 86. Tested negative for flu, COVID, and RSV. VB pH 7.4 with bicarb 35, and pCO2 50, similar to previous. CXR showing chronic interstitial lung disease with no acute airspace disease, similar to prior.. EKG demonstrated sinus rhythm with sinus arrhythmia T-wave inversions in anteroseptal leads. Pt was treated with Solu- Medrol 125 mg IV, mag sulfate, and DuoNebs. Pt will be admitted to the hospital under observation for treatment and further evaluation of acute respiratory distress in the setting of chronic hypoxic respiratory failure due to ILD/COPD/severe persistent asthma. 83yo F with chronic hypoxia due to ILD on 4L O2 at rest/6-8L O2 with exertion, COPD/asthma overlap on chronic prednisone, HFpEF, CVA, HTN, chronic thrombocytosis, and DM2 presenting with tachycardia, dyspnea, and chest pain. She was admitted to the telemetry unit for respiratory distress. Hospital course by problem: acute/chronic hypoxic resp failure due to ILD/COPD/asthma exacerbation - Treated with IV, then PO steroids and discharged on a 16-day prednisone taper. Weaned to home oxygen. 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 Should have follow up with her elementary school tutor in 2 weeks. atypical chest pain tachycardia RV strain - Ultimately this was determined to be due to worsening pulmonary HTN as per Cardiology consultation. She was started on diltiazem to reduce tachycardia and losartan was discontinued to allow BP room for this. TIA - Had transient facial droop on 03/10/24. No carotid stenosis and no acute infarct on MRI; continue ASA + atorvastatin as per Neurology and as for hx of prior CVA Time Attestation Discharge Coordination Time (in mins): 40 Quality: Safe Use of Opioids Does Pt have an Active Cancer Diagnosis on the Problem List?: No Quality: Stroke Does the patient have a stroke diagnosis?: No Physical Exam Vital Signs: Vital Signs: Last Vital Signs Temp 98.3 F 03/14/24 10:43 Pulse 106 H 03/14/24 10:43 Resp 20 03/14/24 10:43 BP 121/67 03/14/24 10:43 Pulse Ox 100 03/14/24 10:43 O2 Del Method Nasal Cannula 03/14/24 10:43 O2 Flow Rate 2 03/14/24 10:43 Oxygen Flow Rate 2 03/10/24 19:27 BMI result Body Mass Index 20.8 Gen: in no acute distress HEENT: sclera anicteric, moist mucus membranes Neck: supple Lungs: dry crackles bilaterally on inspiration Heart: regular rate and rhythm, no murmurs Abd: soft, non-tender, non-distended Ext: no edema Skin: warm/well-perfused Neuro: alert and oriented x3, no focal findings, no facial droop Psych: appropriate affect DS: Data Data Completed and Pending Completed studies during hospitalization [Text1]: Laboratory Results WBC 12.9 X10*3/uL (4.8-10.8) H 03/09/24 11:34 RBC 3.47 X10*6/uL (4.20-5.50) L 03/09/24 11:34 Hgb 9.4 g/dl (12.0-16.0) L 03/09/24 11:34 Hct 30.3 % (37.0-47.0) L 03/09/24 11:34 MCV 87.3 fL (80.0-98.0) 03/09/24 11:34 MCH 27.1 pg (27.0-33.0) 03/09/24 11:34 MCHC 31.0 g/dl (31.0-35.0) 03/09/24 11:34 RDW 15.2 % (11.0-16.0) 03/09/24 11:34 Plt Count 646 X10*3/uL (160-400) H 03/09/24 11:34 MPV 9.0 fL (9.4-12.3) L 03/09/24 11:34 Immature Gran % (Auto) 0.4 % (0.0-0.4) 03/09/24 11:34 Neut % (Auto) 60.5 % (45-73) 03/09/24 11:34 Lymph % (Auto) 15.9 % (20-40) L 03/09/24 11:34 Maverick % (Auto) 4.0 % (2-11) 03/09/24 11:34 Eos % (Auto) 18.3 % (0-4) H 03/09/24 11:34 Baso % (Auto) 0.9 % (0-2) 03/09/24 11:34 Lymph # (Auto) 2.0 X10*3/uL (1.2-4.9) 03/09/24 11:34 Maverick # (Auto) 0.5 X10*3/uL (0.1-1.2) 03/09/24 11:34 Eos # (Auto) 2.4 X10*3/uL (0.0-0.4) H 03/09/24 11:34 Baso # (Auto) 0.1 X10*3/uL (0.0-0.2) 03/09/24 11:34 Abs Immat Gran (auto) 0.05 X10*3/uL (0.00-0.03) H 03/09/24 11:34 Absolute Neuts (auto) 7.8 x10*3/uL (2.0-8.3) 03/09/24 11:34 Absolute Nucleated RBC 0.000 X10*3/uL (0.0-0.012) 03/09/24 11:34 Nucleated RBC % (auto) 0.0 /100WBC (0.0-0.2) 03/09/24 11:34 Smear Tech's Comments VERIFIED 03/09/24 11:34 Hold Purple Top SEE NOTE 03/10/24 21:09 PT 12.0 SEC (10.9-12.4) 03/09/24 11:34 INR 1.0 (0.9-1.1) 03/09/24 11:34 D-Dimer High Sensitivty 399 NG/ML 03/10/24 21:09 Hold Blue Top Cancelled 03/10/24 21:09 VBG pH 7.45 (7.32-7.43) H 03/09/24 11:41 VBG pCO2 50 mmHg 03/09/24 11:41 VBG pO2 63 mmHg 03/09/24 11:41 VBG HCO3 35 mmol/L (22-26) H 03/09/24 11:41 VBG O2 Saturation 92.0 % 03/09/24 11:41 VBG Base Excess 10.4 mmol/L 03/09/24 11:41 Sodium 136 mmol/L (135-145) 03/10/24 19:18 Potassium 4.4 mmol/L (3.3-5.1) 03/10/24 19:18 Chloride 95 mmol/L (96-108) L 03/10/24 19:18 Carbon Dioxide 33 mmol/L (22-29) H 03/10/24 19:18 Anion Gap 12 (12-20) 03/10/24 19:18 BUN 12 mg/dL (9-16) 03/10/24 19:18 Creatinine 0.66 mg/dL (0.5-1.4) 03/10/24 19:18 Estim Creat Clear Calc 51.9 03/10/24 19:18 Estimated GFR > 60 03/10/24 19:18 POC Glucose 243 mg/dL (60-115) H 03/14/24 10:45 Random Glucose 290 mg/dL (60-115) H 03/10/24 19:18 Calcium 9.4 mg/dL (8.4-10.2) 03/10/24 19:18 Magnesium 1.7 mg/dL (1.6-2.6) 03/09/24 11:34 Total Bilirubin 0.4 mg/dL (0.0-1.0) 03/09/24 11:34 AST 17 U/L (5-31) 03/09/24 11:34 ALT 11 U/L (0-31) 03/09/24 11:34 Alkaline Phosphatase 71 U/L (39-117) 03/09/24 11:34 Troponin I High Sens < 2.7 ng/L (<3.5-17.0) 03/11/24 06:48 B-Natriuretic Peptide 98 pg/mL (<100) 03/10/24 19:17 Total Protein 7.0 g/dL (6.5-8.0) 03/09/24 11:34 Albumin 3.4 g/dL (3.5-5.0) L 03/09/24 11:34 Urine Color Yellow 03/10/24 00:26 Urine Appearance Clear 03/10/24 00:26 Urine pH 6.5 (5.0-9.0) 03/10/24 00:26 Ur Specific [place] 1.010 (1.005-1.025) 03/10/24 00:26 Urine Protein Negative mg/dL (Neg-Trace) 03/10/24 00:26 Urine Glucose (UA) 250 mg/dL (Negative) H 03/10/24 00:26 Urine Ketones 15 mg/dL (Negative) 03/10/24 00:26 Urine Blood Negative (Negative) 03/10/24 00:26 Urine Nitrite Negative (Negative) 03/10/24 00:26 Ur Leukocyte Esterase Negative (Negative) 03/10/24 00:26 Influenza Type A (PCR) NEGATIVE (Negative) 03/09/24 11:34 Influenza Type B (PCR) NEGATIVE (Negative) 03/09/24 11:34 RSV RNA Qual (PCR) NEGATIVE (Negative) 03/09/24 11:34 SARS-CoV-2 RNA (RT-PCR) NEGATIVE (Negative) 03/09/24 11:[address] 03/10/24 19:20 IMPRESSION: No acute intracranial pathology. This critical result was discussed with BREE Molina at 7:41 PM, 03/10/2024 .It was ascertained that the content and urgency of the report was understood at the time of direct communication. Electronically signed by: Rolando Lee MD 03/10/2024 07:42 PM EDT RP Head/Neck CTA 03/10/24 19:24 IMPRESSION: Normal CT angiogram of the head and neck in that there is no stenosis of the cervical carotid or vertebral arteries. No intracranial large vessel occlusion. No evidence of acute territorial infarct or hemorrhage. No abnormal intracranial mass or enhancement. Coarse interstitial thickening is partially visualized within the apices of both lungs consistent with this patient's known history of interstitial lung disease. Electronically signed by: Farzad Thompson MD 03/10/2024 08:07 PM EDT RP Chest X-Ray 03/10/24 19:40 IMPRESSION: Chronic increased interstitial lung markings similar to prior exams. No focal dense consolidation. Electronically signed by: Rolando Lee MD 03/10/2024 08:55 PM EDT RP Brain MRI 03/11/24 06:00 IMPRESSION: * No acute intracranial findings. No acute infarcts. * Moderate T2 signal changes within the supratentorial white matter with some foci oriented perpendicular to the lateral ventricular margins. Findings could be the sequela of chronic microangiopathy and/or demyelinating disease which can be clinically correlated. If there is clinical concern for active demyelination, postcontrast imaging can be obtained. * Large bilateral mastoid effusions and partial opacification of the middle ear cavities bilaterally. Electronically signed by: Juventino Sandhu MD 03/11/2024 01:35 PM EDT RP Discharge Plan Discharge Patient Disposition: Home Health Service Discharge Diagnosis: TIA acute/chronic hypoxic resp failure due to ILD/COPD/asthma atypical chest pain tachycardia RV strain Referrals: [facility] [Outside] - 1 Week Po,Ciro Silva MD [Primary Care Provider] - 1 Week Discharge Medications: New diltiazem HCl 30 mg Tablet 30 mg PO BID Qty: 60 0RF Protocol: Hold for SBP/HR < HOLD for SBP < : 90 HOLD for HR < : 60 prednisone 5 mg tablet See Rx Instructions .ROUTE .COMPLEX Qty: 26 0RF Rx Instructions: 15 mg daily for 4 days, then 10 mg daily for 4 days, then 5 mg daily for 4 days, then 2.5 mg daily for 4 days [facility]ued (DME[facility] blood glucose moniter starter kit See Rx Instructions .Route .MEDSUPPLY Qty: 1 0RF Rx Instructions: As directed (DME) medline basic face mask See Rx Instructions .Route .MEDSUPPLY Qty: 1 11RF Rx Instructions: As directed (DME) Washable Incontinence Pads (Etiquette Teacher Pad) 0 .Route .MEDSUPPLY Qty: 60 12RF Rx Instructions: As directed (DME) BEDSIDE COMMODE See Rx Instructions .Route .MEDSUPPLY Qty: 1 0RF Rx Instructions: As directed (DME) WIPES See Rx Instructions .Route .MEDSUPPLY Qty: 2 11RF Rx Instructions: As directed (DME) incontinence pad, liner, disp Pad See Rx Instructions .Route Qty: 180 12RF Rx Instructions: As directed (DME) MEDIUM PULL UPS See Rx Instructions .Route .MEDSUPPLY Qty: 90 11RF Rx Instructions: As directed (DME) bedside commode Kit See Rx Instructions .Route Qty: 1 0RF Rx Instructions: As directed (DME) GERMICIDAL DISPOSABLE WIPES See Rx Instructions .Route .MEDSUPPLY Qty: 2 12RF Rx Instructions: As directed (DME) HOSPITAL BED See Rx Instructions .Route .MEDSUPPLY Qty: 1 0RF Rx Instructions: As directed (DME) Mattress for hospital bed 0 .Route .MEDSUPPLY Qty: 1 0RF Rx Instructions: As directed (DME) medline alcohol prep pads 1.75x3 See Rx Instructions .Route .MEDSUPPLY Qty: 1 12RF Rx Instructions: As directed (DME) ULTRA THIN PADS See Rx Instructions .Route .MEDSUPPLY Qty: 30 12RF Rx Instructions: As directed (DME) ULTRASORB UNDER PADS See Rx Instructions .Route .MEDSUPPLY Qty: 1 11RF Rx Instructions: As directed cholecalciferol (vitamin D3) 50 mcg (2,000 unit) capsule 50 mcg PO DAILY 90 Days Qty: 90 0RF aspirin [Adult Aspirin Regimen] 81 mg tablet,delayed release (DR/EC) 81 mg PO DAILY 90 Days Qty: 90 0RF duloxetine 60 mg capsule,delayed release(DR/EC) 60 mg PO DAILY 90 Days Qty: 90 0RF gabapentin 300 mg capsule 300 mg PO BEDTIME 90 Days Qty: 90 0RF metformin 750 mg tablet extended release 24 hr 750 mg PO BID 90 Days Qty: 180 0RF glipizide 5 mg tablet 5 mg PO DAILY Qty: 90 1RF mycophenolate mofetil 500 mg tablet 500 mg PO BID 30 Days Qty: 60 0RF acetaminophen 500 mg tablet 1,000 mg PO TID PRN (Reason: Pain) sennosides-docusate sodium [Stimulant Laxative Plus] 8.6-50 mg tablet 2 tab PO BEDTIME tamsulosin 0.4 mg capsule 0.4 mg PO DAILY magnesium oxide 400 mg (241.3 mg magnesium) tablet 400 mg PO BIDAC loratadine 10 mg tablet 10 mg PO DAILY insulin glargine [Lantus Solostar U-100 Insulin] 100 unit/mL (3 mL) insulin pen 20 unit subcut DAILY@1300 atorvastatin 40 mg tablet 40 mg PO BEDTIME furosemide [Lasix] 40 mg tablet 40 mg PO DAILY Qty: 90 0RF Discontinued losartan 50 mg tablet 50 mg PO DAILY 90 Days Qty: 90 0RF No Action (DME) Medline ext cuff nitrile glove sterile pairs (medium) See Rx Instructions .Route .MEDSUPPLY Qty: 1 11RF Rx Instructions: As directed (DME) Medline wall mount sharps container 3 galloon red See Rx Instructions .Route .MEDSUPPLY Qty: 1 3RF Rx Instructions: As directed (DME) O2 Gas System Home Transfill Unit ([id number]) See Rx Instructions .Route .MEDSUPPLY Qty: 1 0RF Rx Instructions: As directed (DME) pen needle, diabetic [BD Ultra-Fine Micro Pen Needle] 32 gauge x 1/4 needle See Rx Instructions .Route Qty: 100 3RF Rx Instructions: As directed inject insulin one a day (DME) medlinecontour plus bladder control pads See Rx Instructions .Route .MEDSUPPLY Qty: 90 12RF Rx Instructions: As directed (DME) RECLINER See Rx Instructions .Route .MEDSUPPLY Qty: 1 0RF Rx Instructions: As directed (DME) Semi- Electric Hospital Bed with Mattress and Rails See Rx Instructions .Route .MEDSUPPLY Qty: 1 0RF Rx Instructions: As directed (DME) Oxygen Home Use Kit See Rx Instructions .Route Rx Instructions: As directed Discharge Orders: Discharge Order (Routine); Ordered 03/14/24 Ordered By: Richard Martinez Diet: Advance to usual diet Activity on Discharge: As tolerated Stand Alone Forms: Patient Portal Discharge page Print Language: [place] Care Plan Goals: cardiopulmonary health Health Concerns: TIA acute/chronic hypoxic resp failure due to ILD/COPD/asthma atypical chest pain tachycardia RV strain Plan of Treatment: prednisone taper: 15 mg daily x 4 days, 10 mg daily x 4 days, then 5 mg daily x 4 days, then 2.5 mg daily x 4 days follow up with your lung doctor [Dr Villalobos] in 2 weeks change losartan to diltiazem Please follow up with your primary care doctor within 1 week. Return to the hospital if you experience recurrent or worsening symptoms. Assessment: See Discharge Summary.
--- NOTE | 2024-03-14 14:56 | MHC.CM.PN ---
EMR reviewed and per MD rounds, pt is medically cleared for discharge to STR vs home with resumption of VNA services. This CM called pts daughter/HCP Kylee to discuss discharge plan, and to see if the family had come to a decision about having pt go to STR vs returning home. Per Kylee, she requested that this CM meet with her mother the pt to discuss the plan with her and let her decide where she would like to go. This CM met with the pt with the assistance of a records technician, per pt she requested this CM to call her daughter Kylee and let her decide where she would go. This CM called pts daughter Kylee back to let her know of her mothers request to have her decide. 2 facilities for inpatient pulmonary rehab [facility] this information was discussed with Kylee. Per Kylee she would not like her mother to go to either of those facilities, and requested a referral be placed to [facility] and [facility]. This CM placed referral to [facility] and [facility], neither were able to offer the pt a bed. This information as relayed to Kylee. Kylee ultimately decide that she would rather her mother return home than to go to either [facility] facility. Pt will discharge home today with resumption of [facility] services via BLS/Gabriella ([facility] transport auth received, run #[id number]). Pts daughter Kylee aware and in agreement with discharge plan.
[2024-03-14 16:00] VITALS: BP 127/67; PULSE 99; RESP 16; TEMP 36.2; O2SAT 99
[2024-03-14 16:33] LABS: Glucose, Whole Blood 365 mg/dL (60-115)
[2024-03-14] MEDS: Enoxaparin Sodium 40 MG/0.4 ML SYRINGE SUBCUT (16:43)
== END 2024-03-14 18:05 | disposition home health service (06) ==
LOC: HO.ED 14:45 → HO.EDOVER 15:59 → HO.IMC 23:41
PROVIDERS: Hospitalist; Internal Medicine; Physician Assistant Medical; Admitting Provider Student in an Organized Health Care Education/Training Program; Emergency Provider Emergency Medicine; PCP Internal Medicine; Visit Provider Family Medicine
DX: G45.9 Transient cerebral ischemic attack, unspecified (principal); J96.21 Acute and chronic respiratory failure with hypoxia; I27.20 Pulmonary hypertension, unspecified; J84.10 Pulmonary fibrosis, unspecified; R07.9 Chest pain, unspecified; R00.0 Tachycardia, unspecified; R29.810 Facial weakness; J44.9 Chronic obstructive pulmonary disease, unspecified; I11.0 Hypertensive heart disease with heart failure; I50.32 Chronic diastolic (congestive) heart failure; E11.9 Type 2 diabetes mellitus without complications; Z03.818 Encounter for observation for suspected exposure to other biological agents ruled out; Z79.899 Other long term (current) drug therapy; Z86.73 Personal history of transient ischemic attack (TIA), and cerebral infarction without residual deficits
CPT/HCPCS: 0241U; 36415; 70450; 70496; 70498; 70551; 71045; 71046; 80048; 80053; 81003; 82803; 82947; 83735; 83880; 84484; 85025; 85379; 85610; 93005; 94640; 96365; 96372; 96375; 96376; 97161; 97530; 99222; 99285; J1650; J2919; J3475; Q9967

== ENCOUNTER → 2024-03-09 15:38 | Outpatient (BNV) | payer OTHER, SELFPAY | PROVIDERS: Admitting Provider Student in an Organized Health Care Education/Training Program; Emergency Provider Emergency Medicine; PCP Internal Medicine; Visit Provider Student in an Organized Health Care Education/Training Program | DX: R07.9 Chest pain, unspecified (principal); J96.21 Acute and chronic respiratory failure with hypoxia; J44.1 Chronic obstructive pulmonary disease with (acute) exacerbation | CPT/HCPCS: 99222; 99232; 99233; 99239; 99499 ==

== ENCOUNTER → 2024-03-09 15:38 | Outpatient (BNV) | payer OTHER, SELFPAY | PROVIDERS: Admitting Provider Student in an Organized Health Care Education/Training Program; Emergency Provider Emergency Medicine; PCP Internal Medicine; Visit Provider Internal Medicine Cardiovascular Disease | DX: R07.9 Chest pain, unspecified (principal); J96.21 Acute and chronic respiratory failure with hypoxia | CPT/HCPCS: 99222 ==

== ENCOUNTER → 2024-03-09 15:38 | Outpatient (BNV) | payer OTHER, SELFPAY | PROVIDERS: Admitting Provider Student in an Organized Health Care Education/Training Program; Emergency Provider Emergency Medicine; PCP Internal Medicine; Visit Provider Psychiatry & Neurology Neurology | DX: I67.82 Cerebral ischemia (principal) | CPT/HCPCS: 99222 ==

== ENCOUNTER 2024-03-17 11:24 | Outpatient (AMB) | payer OTHER, SELFPAY ==
--- NOTE | 2024-03-17 11:24 | A.OFFPC_ITS ---
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 for TCM. Pt was admitted at [facility] on 03/09/24 for chest pain, SOB and Hypoxia. She was discharged home 03/14/24 in stable condition. Today she is accompanied by Son and daughter in-law to the appointment. Daughter provides history and translation. Pt c/o dry mouth and poor appetite. Pt asking if I could prescribe Biotene for dry mouth. H/o ILD which is currently managed by Pulmonology. Her next Appointment is in April. [facility] Medical History Chest pain Pulmonary hypertension Hip pain, left Bilateral hip pain Respiratory tract infection Interstitial lung disease Viral pneumonia Pneumonitis Right lower quadrant abdominal pain UTI (urinary tract infection) Mass on back H/O thrombocytosis COPD with acute exacerbation Pneumonia Weakness Constipation Opacities of both lungs present on chest x-ray Elevated WBC count Viral syndrome Asthma-COPD overlap syndrome Chronic respiratory failure Acute and chronic respiratory failure Generalized anxiety disorder Urinary incontinence CVA (cerebral vascular accident) Osteopenia Lumbar spinal stenosis Interstitial pulmonary fibrosis Insomnia Cystocele Hypertension Hypercholesterolemia Type 2 diabetes mellitus with hyperglycemia Surgical History Hx of section Social History Household Members: Significant Other Housing: House Do you presently have visiting nurse or other home services: No Alcohol intake: former Patient Tobacco Use Status: Never used Tobacco Tobacco use type: Cigarette e-Cigarette/Vaping Use: Never Used Second Hand Smoke Exposure: No Advance Directives Date on File: 10/15/23 service: No Current occupational status: retired Cognitive needs: Yes ([employer] Cane at home) Hearing needs: No Vision needs: Yes Questionnaire Thrive Questionnaire Date Thrive assessed: 03/10/24 Are you currently unemployed and looking for a job?: No RADHA-7 AMB Questionnaire RADHA-7 Date RADHA - 7 assessed: 10/19/23 Source: Developed by Drs. Farzad Mcqueen, Dianna Oscar, Jono Cuadra and colleagues, with an educational diallo from [employer]. Review of Systems Const All systems reviewed & are unremarkable except as noted in HPI and below Physical exam (Primary Care) Vital Signs: Last Vital Signs Pulse 111 H 03/17/24 11:27 BP 118/70 03/17/24 11:27 Pulse Ox 98 03/17/24 11:27 Oxygen Delivery Method Nasal Cannula 03/17/24 11:27 Oxygen Flow Rate 4 03/17/24 11:27 BMI result Body Mass Index 20.1 Tobacco/Smoking Status: Tobacco use Status Tobacco use date assessed 08/06/23 03/17/24 11:25 Patient Tobacco Use Status Never used Tobacco 03/17/24 11:25 Tobacco use type Cigarette 03/17/24 11:25 e-Cigarette/Vaping Use Never Used 03/17/24 11:25 Thrive Assessment: Date of Thrive Assessment Date Thrive assessed 03/10/24 03/17/24 11:25 Const General: no acute distress Nutritional Appearance: underweight Orientation/consciousness: patient oriented x3 Limitations: wheelchair Resp Other: On 3 L Oxygen. Effort & Inspection: normal respiratory effort Auscultation: clear to auscultation bilaterally Cardio Heart sounds: S1 normal heart sound present and S2 normal heart sound present Skin General skin exam: no rashes or lesions noted Neuro General: patient oriented x3 Assessment and Plan Assessment & Plan (1) Interstitial pulmonary fibrosis: Code(s): J84.10 - Pulmonary fibrosis, unspecified Plan: Managed by Pulmonology (2) Dry mouth, unspecified: Code(s): R68.2 - Dry mouth, unspecified Plan: Ordered Biotene mouth wash. Medications: New saliva substitute combo no.9 (Biotene Dry Mouth Oral Rinse mouthwash) swish for 15-30 secs , then spit out; do not swallow 15 mL mucous membrane BID-QID PRN 473 mL 0RF dry mouth R68.2 - Dry mouth, unspecified Coding Level of Care Code TCM Mod MDM <= 7 Days Diagnoses Interstitial pulmonary fibrosis J84.10 Dry mouth, unspecified R68.2 Time Spent (min) 20 Comment Spent reviewing hospital notes.
[2024-03-17 11:27] VITALS: BP 118/70; PULSE 111; O2SAT 98; BMI 20.1
== END 2024-03-17 13:16 | disposition home or self-care (01) ==
PROVIDERS: PCP Internal Medicine; Visit Provider Nurse Practitioner Family
DX: J84.10 Pulmonary fibrosis, unspecified (principal); R68.2 Dry mouth, unspecified

== ENCOUNTER → 2024-03-17 11:24 | Outpatient (BNVA) | payer OTHER, SELFPAY | PROVIDERS: PCP Internal Medicine; Visit Provider Nurse Practitioner Family | DX: J84.10 Pulmonary fibrosis, unspecified (principal); R68.2 Dry mouth, unspecified | CPT/HCPCS: 99212 ==

== ENCOUNTER 2024-04-05 10:16 | Outpatient (AMB) | payer OTHER, SELFPAY ==
--- NOTE | 2024-04-05 10:26 | A.OFFVIS_ITS ---
Vital Signs 04/05/24 10:27 Height 5 ft 2 in BMI Reason not done Patient refused/unable BP 140/80 H Blood Pressure Location Lt brachial Position Sitting Pulse 119 H Pulse Source Monitor Intake Visit Reasons: C F/up/elevated heart rate/ Intake Note: [facility]-03/09- pt is here because her Pulse have been high since out of hosital. Security Field Supervisor Required: Yes Security Field Supervisor Language: Affirmative Action Officer Services: Security Field Supervisor Offered & Declined Security Field Supervisor Name: Sergio/son Accompanied by: Son Allergies No Known Allergies Allergy (Verified 03/17/24 11:36) Medication List - Last Reconciled 04/05/24 by Mejia Nicole MD [[employer] blood glucose moniter starter kit As directed] acetaminophen 1,000 mg PO TID PRN aspirin (Adult Aspirin Regimen) 81 mg PO DAILY 90 days atorvastatin 40 mg PO BEDTIME [BEDSIDE COMMODE As directed] cholecalciferol (vitamin D3) 50 mcg PO DAILY 90 days commode (bedside commode) As directed diltiazem HCl 30 mg See Protocol PO BID duloxetine 60 mg PO DAILY 90 days furosemide (Lasix) 40 mg PO DAILY gabapentin 300 mg PO BEDTIME 90 days [GERMICIDAL DISPOSABLE WIPES As directed] glipizide 5 mg PO DAILY [HOSPITAL BED As directed] incontinence pad, liner, disp As directed insulin glargine (Lantus Solostar U-100 Insulin) 20 units subcut DAILY@1300 loratadine 10 mg PO DAILY magnesium oxide 400 mg PO .QD [Mattress for hospital bed As directed] [MEDIUM PULL UPS As directed] [medline alcohol prep pads 1.75x3 As directed] [medline basic face mask As directed] [Medline ext cuff nitrile glove sterile pairs (medium) As directed] [Medline wall mount sharps container 3 galloon red As directed] [medlinecontour plus bladder control pads As directed] metformin ER 750 mg PO BID 90 days mycophenolate mofetil 500 mg PO BID 30 days [O2 Gas System Home Transfill Unit ([id number]) As directed] Oxygen Home Use As directed pen needle, diabetic (BD Ultra-Fine Micro Pen Needle) As directed inject insulin one a day [RECLINER As directed] saliva substitute combo no.9 (Biotene Dry Mouth Oral Rinse mouthwash) 15 mL mucous membrane BID-QID PRN [Semi- Electric Hospital Bed with Mattress and Rails As directed] sennosides-docusate sodium 8.6-50 mg (Stimulant Laxative Plus) 2 tabs PO BEDTIME tamsulosin 0.4 mg PO DAILY [ULTRA THIN PADS As directed] [ULTRASORB UNDER PADS As directed] [Washable Incontinence Pads (Managed Services Sales Consultant Pad) As directed] [WIPES As directed] HPI Comments Details: 83-year-old female who is here for follow-up. She was seen in the hospital in 02/08/2024 when she presented with shortness of breath and hypoxia. She has known history of advanced interstitial lung disease and is on supplemental oxygen. Her echocardiography showed RV dysfunction and cor pulmonale. She had pulmonary hypertension due to interstitial lung disease. She is returning now because she has been noticed to be tachycardic. The son said her heart rates were in 130s at 1 stage. The patient has no symptoms due to that. She is quite frail and is on supplemental oxygen 11/01. On oxygen her saturations are in low 90s. Denying any active symptoms currently. PFSH Medical History Chest pain Pulmonary hypertension Hip pain, left Bilateral hip pain Respiratory tract infection Interstitial lung disease Viral pneumonia Pneumonitis Right lower quadrant abdominal pain UTI (urinary tract infection) Mass on back H/O thrombocytosis COPD with acute exacerbation Pneumonia Weakness Constipation Opacities of both lungs present on chest x-ray Elevated WBC count Viral syndrome Asthma-COPD overlap syndrome Chronic respiratory failure Acute and chronic respiratory failure Generalized anxiety disorder Urinary incontinence CVA (cerebral vascular accident) Osteopenia Lumbar spinal stenosis Interstitial pulmonary fibrosis Insomnia Cystocele Hypertension Hypercholesterolemia Type 2 diabetes mellitus with hyperglycemia Surgical History Hx of section Family History (Updated 04/05/24 @ 10:36 by Cheyenne Altman CMA) Mother No problems noted. Social History Household Members: Significant Other Housing: House Do you presently have visiting nurse or other home services: No Alcohol intake: former Patient Tobacco Use Status: Never used Tobacco Tobacco use type: Cigarette e-Cigarette/Vaping Use: Never Used Second Hand Smoke Exposure: No Advance Directives Date on File: 10/15/23 service: No Current occupational status: retired Cognitive needs: Yes (Walker and Cane at home) Hearing needs: No Vision needs: Yes Review of Systems Const Denies chills, Denies fatigue, Denies fever(s), Denies frequent falls, Denies weakness, Denies weight gain and Denies weight loss ENT Denies dizziness Card Reports chest pain, Denies leg edema, Reports lightheadedness, Reports palpitations, Reports dyspnea and Reports dyspnea on exertion Resp Denies cough, Reports dyspnea and Reports dyspnea on exertion GI Denies hematochezia Musc Denies abnormal gait, Denies muscle weakness, Denies numbness, Denies radiating pain into limb and Denies tingling Neuro Denies abnormal gait, Denies dizziness, Denies frequent falls, Denies numbness, Denies tingling and Denies weakness Endo Denies fatigue and Reports palpitations Physical Exam Vital Signs: Last Vital Signs Pulse 119 H 04/05/24 10:27 BP 140/80 H 04/05/24 10:27 GENERAL APPEARANCE: In no distress, frail, on supplemental oxygen NECK: no carotid bruit, no jugular venous distention. SKIN: no suspicious lesions, warm and dry. HEART: no murmurs, regular rate and rhythm. LUNGS: b/l crackles 2/3 lungs ABDOMEN: soft, nontender. EXTREMITIES: no edema. PERIPHERAL PULSES: equal. NEUROLOGIC: No gross deficits, AAO X 3 Office Procedures EKG Details: Sinus tachycardia 119 beats per minute, left axis deviation, left atrial enlargement, pulmonary disease pattern, QTC 452 milliseconds. [id number], Complete Assessment & Plan Assessment & Plan (1) Cor pulmonale: Code(s): I27.81 - Cor pulmonale (chronic) Category: Medical (2) Sinus tachycardia: Code(s): R00.0 - Tachycardia, unspecified Category: Medical Plan 83 year female who is here for follow-up. She was seen in the hospital for question of congestive heart failure but was mostly in respiratory distress due to advanced the teacher lung disease. She was noticed to have RV dysfunction due to cor pulmonale. She is on supplemental oxygen. She is tachycardic and has sinus tachycardia on EKG. I have explained to the son that we are advanced lung disease it is quite common to see sinus tachycardia. Also with RV dysfunction and frailty, it is not unusual. I have advised against diltiazem use and the son will check the medication list at home and will make sure that the patient is not getting this medication anymore. Her care unfortunately is supported due to advanced lung disease. She is following with pulmonology. From cardiovascular point of view no further recommendations. Clinically not in heart failure or volume overload. She will follow-up with us as needed. Thank you for allowing me to participate in the care of your patient. Please feel free to contact me if you have any questions. Medications: Discontinued diltiazem HCl Discontinued Reason: Doctor's Order 30 mg See Protocol PO BID 60 tabs 0RF Coding Level of Care Code Est Pt Level 2 (52557) Diagnoses Cor pulmonale I27.81 Sinus tachycardia R00.0 CPT Codes EKG - CPT: 45245-[id number], Complete ([id number])
[2024-04-05 10:27] VITALS: BP 140/80; PULSE 119
== END 2024-04-05 13:30 | disposition home or self-care (01) ==
PROVIDERS: PCP Internal Medicine; Visit Provider Internal Medicine Cardiovascular Disease
DX: I27.81 Cor pulmonale (chronic) (principal); R00.0 Tachycardia, unspecified
CPT/HCPCS: 93010; 99212

== ENCOUNTER → 2024-04-05 10:16 | Outpatient (BNVA) | payer OTHER, SELFPAY | PROVIDERS: PCP Internal Medicine; Visit Provider Internal Medicine Cardiovascular Disease | DX: I27.81 Cor pulmonale (chronic) (principal); R00.0 Tachycardia, unspecified; R06.02 Shortness of breath; Z99.81 Dependence on supplemental oxygen | CPT/HCPCS: 93005; 99212 ==

== ENCOUNTER 2024-04-18 20:53 | Emergency (ER) | payer OTHER, SELFPAY ==
--- NOTE | 2024-04-18 | ECG_ITS ---
Test Reason : SOB Blood Pressure : / mmHG Vent. Rate : 107 BPM Atrial Rate : 107 BPM P-R Int : 128 ms QRS Dur : 080 ms QT Int : 352 ms P-R-T Axes : 046 -43 -07 degrees QTc Int : 469 ms Sinus tachycardia Left atrial enlargement Left axis deviation Possible Anterior infarct , age undetermined Abnormal ECG When compared with ECG of 10-MAR-2024 19:06, No significant change was found Referred By: Generic ED Physician Electronically Signed By:MANUEL JOINER
--- NOTE | ~2024-04-18 | XR_ITS ---
EXAMINATION: XR CHEST CLINICAL INFORMATION: Dyspnea. COMPARISON: Chest x-ray March 10, 2024. CT chest February 24, 2024 TECHNIQUE: Frontal portable view of the chest was obtained. 9:18 PM FINDINGS: Stable appearance of chronic diffuse increased interstitial lung disease. This is better appreciated on prior CT chest. No acute airspace disease. No pleural effusion or pneumothorax. Cardiac and mediastinal contours are normal. XR/XR chest 1V IMPRESSION: Chronic interstitial lung disease. No acute airspace disease. Electronically signed by: Rolando Lee MD 04/18/2024 10:58 PM EDT
[2024-04-18 20:54] VITALS: BP 134/63; PULSE 109; O2SAT 60
[2024-04-18 21:02] VITALS: BP 111/62; PULSE 117; RESP 34; TEMP 36.7; O2SAT 98
[2024-04-18 21:03] VITALS: BMI 20.9
--- NOTE | 2024-04-18 21:24 | ED.SOB ---
HPI - SOB/Dyspnea General Chief Complaint: Dyspnea Stated Complaint: COPD exacerbation, o2 in 60's @ 3lpm, now 90's Time Seen by Provider: 04/18/24 21:12 Source: patient, family and EMS Mode of arrival: EMS Limitations: no limitations History of Present Illness ED Provider: Dr. Roselyn Parker HPI Narrative: Patient comes to the emergency room via ambulance from home. Patient was discharged from [facility] earlier today for a COPD exacerbation. According to the patient's son who is at bedside, patient's oxygen saturation was 60% on 3 L. patient usually uses 4 L. however, when EMS arrived, they increased the oxygen to 6 L and oxygen saturation in the patient increased to 100%. Patient has no complaints. Patient's son believes that the patient has new and longer tubing which may require a higher setting of oxygen. At this time, patient states that she feels at baseline, has no chest pain or shortness of breath. Patient states that she feels well. Related Data Home Medications ?Medication ?Instructions ?Recorded ?Confirmed Oxygen Home Use 10/23/22 03/16/24 acetaminophen 500 mg tablet 1,000 mg PO TID PRN Pain 10/08/23 04/05/24 atorvastatin 40 mg tablet 40 mg PO BEDTIME 02/10/24 04/05/24 sennosides 8.6 mg-docusate sodium 2 tab PO BEDTIME 02/24/24 04/05/24 50 mg tablet (Stimulant Laxative Plus) tamsulosin 0.4 mg capsule 0.4 mg PO DAILY 02/24/24 04/05/24 insulin glargine 100 unit/mL (3 20 unit subcut DAILY@1300 03/09/24 04/05/24 mL) subcutaneous pen (Lantus Solostar U-100 Insulin) loratadine 10 mg tablet 10 mg PO DAILY 03/09/24 04/05/24 Previous Rx's ?Medication ?Instructions ?Recorded [facility] G2 blood glucose moniter #1 ea 10/02/21 starter kit Medline ext cuff nitrile glove #1 ea 12/03/21 sterile pairs (medium) Medline wall mount sharps #1 ea 12/03/21 container 3 galloon red medline basic face mask #1 ea 12/03/21 O2 Gas System Home Transfill Unit #1 ea 11/23/22 ([id number]) Washable Incontinence Pads ([employer]cean Import Representative #60 ea 07/09/23 Pad) pen needle, diabetic 32 gauge x #100 ea 08/18/23/ (BD Ultra-Fine Micro Pen Needle) BEDSIDE COMMODE #1 10/26/23 WIPES #2 ea 10/26/23 incontinence pad, liner, disp #180 ea 12/09/23 GERMICIDAL DISPOSABLE WIPES #2 ea 01/06/24 HOSPITAL BED #1 ea 01/06/24 MEDIUM PULL UPS #90 ea 01/06/24 Mattress for hospital bed #1 ea 01/06/24 RECLINER #1 01/06/24 Semi- Electric Hospital Bed with #1 ea 01/06/24 Mattress and Rails ULTRA THIN PADS #30 ea 01/06/24 ULTRASORB UNDER PADS #1 ea 01/06/24 commode (bedside commode) #1 ea 01/06/24 medline alcohol prep pads 1.75x3 #1 ea 01/06/24 medlinecontour plus bladder #90 ea 01/06/24 control pads aspirin 81 mg tablet,delayed 81 mg PO DAILY 90 days #90 tabs 02/04/24 release (Adult Aspirin Regimen) cholecalciferol (vitamin D3) 50 50 mcg PO DAILY 90 days #90 caps 02/04/24 mcg (2,000 unit) capsule duloxetine 60 mg capsule,delayed 60 mg PO DAILY 90 days #90 caps 02/04/24 release gabapentin 300 mg capsule 300 mg PO BEDTIME 90 days #90 caps 02/04/24 glipizide 5 mg tablet 5 mg PO DAILY #90 tabs 02/04/24 metformin 750 mg tablet,extended 750 mg PO BID 90 days #180 tabs 02/04/24 release 24 hr furosemide 40 mg tablet (Lasix) 40 mg PO DAILY #90 tabs 02/18/24 saliva substitute combo no.9 15 ml mucous membrane BID-QID PRN 03/17/24 (Biotene Dry Mouth Oral Rinse dry mouth #473 mL mouthwash) mycophenolate mofetil 500 mg tablet 500 mg PO BID 30 days #60 tabs 04/04/24 magnesium oxide 400 mg (241.3 mg 400 mg PO .QD #30 tabs 04/07/24 magnesium) tablet Allergies Allergy/AdvReac Type Severity Reaction Status Date / Time No Known Allergies Allergy Verified 04/18/24 21:08 Review of Systems Review of Systems: Constitutional : No Weight loss, No Fever, No Chills, No Night Sweats, No Fatigue, No Malaise ENT/Mouth : No Hearing loss, No Ear Pain, No Nasal Congestion, No Sinus Pain, No Hoarseness, No sore throat, No Rhinorrhea, No Swallowing Difficulty Eyes: No Eye Pain, No Swelling, No Redness, No Foreign Body, No Discharge, No Vision Changes Cardiovascular : No Chest Pain, No SOB, No Dyspnea on Exertion, No Orthopnea, No Edema, No Palpitations Respiratory : Recovering from COPD/asthma, breathing at baseline Gastrointestinal : No Nausea, No Vomiting, No Diarrhea, No Constipation, No abdominal Pain, No Hematochezia, No Melena Genitourinary : no irregular bleeding, No Dysuria, No Urinary Frequency, No Hematuria, No Urinary Incontinence, No Urgency, No Flank Pain, No Urinary Flow Changes, No Hesitancy Musculoskeletal : No joint pain, No Myalgias, No Joint Swelling Skin : No Skin Lesions, No rash Neuro : No Weakness, No Numbness, No Paresthesias, No Loss of Consciousness, No Dizziness, No Headache Psych : No Anxiety/Panic, No Depression, No SI/HI/AH/VH, No Social Issues, Heme/Lymph: No Bruising, No Bleeding,No Lymphadenopathy Endocrine : No Polyuria, No Polydipsia, No Temperature Intolerance [facility] Past Medical History Medical History Chest pain Pulmonary hypertension Hip pain, left Bilateral hip pain Respiratory tract infection Interstitial lung disease Viral pneumonia Pneumonitis Right lower quadrant abdominal pain UTI (urinary tract infection) Mass on back H/O thrombocytosis COPD with acute exacerbation Pneumonia Weakness Constipation Opacities of both lungs present on chest x-ray Elevated WBC count Viral syndrome Asthma-COPD overlap syndrome Chronic respiratory failure Acute and chronic respiratory failure Generalized anxiety disorder Urinary incontinence CVA (cerebral vascular accident) Osteopenia Lumbar spinal stenosis Interstitial pulmonary fibrosis Insomnia Cystocele Hypertension Hypercholesterolemia Type 2 diabetes mellitus with hyperglycemia Surgical History Hx of section Family History Family History (Updated 04/05/24 @ 10:36 by Cheyenne Altman CMA) Mother No problems noted. Social History Social History Household Members: Significant Other Housing: House Do you presently have visiting nurse or other home services: No Alcohol intake: former Patient Tobacco Use Status: Never used Tobacco Tobacco use type: Cigarette Smoked in Last 30 Days: No e-Cigarette/Vaping Use: Never Used Second Hand Smoke Exposure: No Use of substances other than those prescribed or required for medical reasons: No Advance Directives: Yes Advance Directives on File: Yes Advance Directives Date on File: 10/15/23 service: No Current occupational status: retired Cognitive needs: Yes (Walker and Cane at home) Hearing needs: No Vision needs: Yes Physical Exam Vital Signs: Vital Signs: Last Vital Signs Temp 98.1 F 04/19/24 00:42 Pulse 91 04/19/24 00:42 Resp 24 H 04/19/24 00:42 BP 119/70 04/19/24 00:42 Pulse Ox 98 04/19/24 00:42 O2 Del Method Nasal Cannula 04/19/24 00:42 O2 Flow Rate 3 04/19/24 00:42 BMI result Body Mass Index 20.9 Const: Other: Appearance: Alert. Oriented X3. No acute distress. Eyes: Pupils equal, round and reactive to light. ENT: Pharynx normal. Neck: Normal inspection. Neck supple. No lymph nodes noted. No crepitus CVS: Normal heart rate and rhythm. Pulses normal. Normal S1 and S2 Respiratory: No respiratory distress. Breath sounds normal. No Wheezing. No rales Abdomen: Soft and nontender. No rigidity. No distention. Skin: Skin warm and dry. Normal skin color. Normal skin turgor. Extremities: No lower extremity edema. No Lacerations. No Rash Neuro: Oriented X 3. No motor deficit. No sensory deficit. Moving all extremities. No slurred speech. CN 2 through 12 grossly intact Psych: calm, cooperative, normal affect Course Course Course Narrative: On arrival, patient oxygen saturation 100% on 10 L. Patient's oxygen saturation was decreased to 5 L, oxygen saturation at 96%. -patient states that she feels well, at baseline, has no complaints Medical Decision Making Medical Decision Making MDM Narrative: -all of patient's labs and imaging pending -it is likely that the patient's oxygen desaturation at home was secondary to having a low amount of oxygen in the air compressor and having additional tubing. -we requested records from [facility]. However we were unable to get him. -my interpretation of labs, patient's white blood cell count 15.4, patient has chronic leukocytosis. Patient's platelet count 1278, patient has chronic thrombocytosis. Patient's blood gases at baseline, chemistry at baseline. -x-rays do not show any acute abnormality. -respiratory therapist has been consulted to talk with the family about the concentrator at home, answer any of their questions. Patient is medically okay to return home. -here in the ED, patient has not wheezing, no coughing, patient at baseline using 4-5 L, breathing comfortably, patient states that she feels well, talking on the phone -according to the patient's sons, the equipment at home has failed couple of times, they have not reported to the company. They will do so tomorrow. Patient will remain in the hospital until tomorrow. They may need help from case management. Consult pending -physician observation started at midnight 00:00 Differential Diagnosis Differential Diagnoses: The differential diagnosis associated with the presentation includes (Chronic lung disease exacerbation, asthma, mechanical difficulties at home) Lab Data MDM Lab Attestation statement: I reviewed the patient's lab results. 04/18/24 21:19 04/18/24 21:19 Labs: Lab Results 04/18/24 04/18/24 Range/Units 21:19 21:26 WBC 15.4 H (4.8-10.8) X10*3/uL RBC 3.96 L (4.20-5.50) X10*6/uL Hgb 10.8 L (12.0-16.0) g/dl Hct 34.5 L (37.0-47.0) % MCV 87.1 (80.0-98.0) fL MCH 27.3 (27.0-33.0) pg MCHC 31.3 (31.0-35.0) g/dl RDW 16.4 H (11.0-16.0) % Plt Count 1278 H* D (160-400) X10*3/uL MPV 8.9 L (9.4-12.3) fL Immature Gran % (Auto) 0.3 (0.0-0.4) % Neut % (Auto) 67.2 (45-73) % Lymph % (Auto) 24.0 (20-40) % Johnston % (Auto) 7.3 (2-11) % Eos % (Auto) 0.8 (0-4) % Baso % (Auto) 0.4 (0-2) % Lymph # (Auto) 3.7 (1.2-4.9) X10*3/uL Johnston # (Auto) 1.1 (0.1-1.2) X10*3/uL Eos # (Auto) 0.1 (0.0-0.4) X10*3/uL Baso # (Auto) 0.1 (0.0-0.2) X10*3/uL Abs Immat Gran (auto) 0.05 H (0.00-0.03) X10*3/uL Absolute Neuts (auto) 10.4 H (2.0-8.3) x10*3/uL Absolute Nucleated RBC 0.000 (0.0-0.012) X10*3/uL Nucleated RBC % (auto) 0.0 (0.0-0.2) /100WBC PT 13.0 H (10.9-12.4) SEC INR 1.1 (0.9-1.1) VBG pH 7.44 H (7.32-7.43) VBG pCO2 54 mmHg VBG pO2 45 mmHg VBG HCO3 37 H (22-26) mmol/L VBG O2 Saturation 63.0 % VBG Base Excess 11.4 mmol/L Sodium 140 (135-145) mmol/L Potassium 3.7 (3.3-5.1) mmol/L Chloride 98 (96-108) mmol/L Carbon Dioxide 30 H (22-29) mmol/L Anion Gap 16 (12-20) BUN 25 H (9-16) mg/dL Creatinine 0.89 (0.5-1.4) mg/dL Estim Creat Clear Calc 38.5 Estimated GFR > 60 Random Glucose 198 H (60-115) mg/dL Calcium 9.7 (8.4-10.2) mg/dL Total Bilirubin 0.3 (0.0-1.0) mg/dL AST 20 (5-31) U/L ALT 12 (0-31) U/L Alkaline Phosphatase 66 (39-117) U/L B-Natriuretic Peptide 125 H (<100) pg/mL Total Protein 7.3 (6.5-8.0) g/dL Albumin 3.6 (3.5-5.0) g/dL Influenza Type A (PCR) NEGATIVE (Negative) Influenza Type B (PCR) NEGATIVE (Negative) RSV RNA Qual (PCR) NEGATIVE (Negative) SARS-CoV-2 RNA (RT-PCR) NEGATIVE (Negative) Discharge Plan Discharge Clinical Impression: Asthma-COPD overlap syndrome Patient Disposition: Home, Self-Care Instructions: Using Oxygen at Home (ED) Additional Instructions: Please follow-up with your primary care physician tomorrow. If you have any worsening or new symptoms, please return to the emergency room or call 911 Prescriptions: No Action (DME) [employer] G2 blood glucose moniter starter kit See Rx Instructions .Route .MEDSUPPLY Qty: 1 0RF Rx Instructions: As directed (DME) medline basic face mask See Rx Instructions .Route .MEDSUPPLY Qty: 1 11RF Rx Instructions: As directed (DME) Medline ext cuff nitrile glove sterile pairs (medium) See Rx Instructions .Route .MEDSUPPLY Qty: 1 11RF Rx Instructions: As directed (DME) Medline wall mount sharps container 3 galloon red See Rx Instructions .Route .MEDSUPPLY Qty: 1 3RF Rx Instructions: As directed (DME) O2 Gas System Home Transfill Unit ([id number]) See Rx Instructions .Route .MEDSUPPLY Qty: 1 0RF Rx Instructions: As directed (DME) Washable Incontinence Pads ([employer] Import Representative Pad) 0 .Route .MEDSUPPLY Qty: 60 12RF Rx Instructions: As directed (DME) pen needle, diabetic [BD Ultra-Fine Micro Pen Needle] 32 gauge x 1/4 needle See Rx Instructions .Route Qty: 100 3RF Rx Instructions: As directed inject insulin one a day (DME) BEDSIDE COMMODE See Rx Instructions .Route .MEDSUPPLY Qty: 1 0RF Rx Instructions: As directed (DME) WIPES See Rx Instructions .Route .MEDSUPPLY Qty: 2 11RF Rx Instructions: As directed (DME) incontinence pad, liner, disp Pad See Rx Instructions .Route Qty: 180 12RF Rx Instructions: As directed (DME) MEDIUM PULL UPS See Rx Instructions .Route .MEDSUPPLY Qty: 90 11RF Rx Instructions: As directed (DME) bedside commode Kit See Rx Instructions .Route Qty: 1 0RF Rx Instructions: As directed (DME) GERMICIDAL DISPOSABLE WIPES See Rx Instructions .Route .MEDSUPPLY Qty: 2 12RF Rx Instructions: As directed (DME) HOSPITAL BED See Rx Instructions .Route .MEDSUPPLY Qty: 1 0RF Rx Instructions: As directed (DME) Mattress for hospital bed 0 .Route .MEDSUPPLY Qty: 1 0RF Rx Instructions: As directed (DME) medline alcohol prep pads 1.75x3 See Rx Instructions .Route .MEDSUPPLY Qty: 1 12RF Rx Instructions: As directed (DME) medlinecontour plus bladder control pads See Rx Instructions .Route .MEDSUPPLY Qty: 90 12RF Rx Instructions: As directed (DME) RECLINER See Rx Instructions .Route .MEDSUPPLY Qty: 1 0RF Rx Instructions: As directed (DME) Semi- Electric Hospital Bed with Mattress and Rails See Rx Instructions .Route .MEDSUPPLY Qty: 1 0RF Rx Instructions: As directed (DME) ULTRA THIN PADS See Rx Instructions .Route .MEDSUPPLY Qty: 30 12RF Rx Instructions: As directed (DME) ULTRASORB UNDER PADS See Rx Instructions .Route .MEDSUPPLY Qty: 1 11RF Rx Instructions: As directed cholecalciferol (vitamin D3) 50 mcg (2,000 unit) capsule 50 mcg PO DAILY 90 Days Qty: 90 0RF aspirin [Adult Aspirin Regimen] 81 mg tablet,delayed release (DR/EC) 81 mg PO DAILY 90 Days Qty: 90 0RF duloxetine 60 mg capsule,delayed release(DR/EC) 60 mg PO DAILY 90 Days Qty: 90 0RF gabapentin 300 mg capsule 300 mg PO BEDTIME 90 Days Qty: 90 0RF metformin 750 mg tablet extended release 24 hr 750 mg PO BID 90 Days Qty: 180 0RF glipizide 5 mg tablet 5 mg PO DAILY Qty: 90 1RF mycophenolate mofetil 500 mg tablet 500 mg PO BID 30 Days Qty: 60 6RF magnesium oxide 400 mg (241.3 mg magnesium) tablet 400 mg PO .QD Qty: 30 0RF acetaminophen 500 mg tablet 1,000 mg PO TID PRN (Reason: Pain) sennosides-docusate sodium [Stimulant Laxative Plus] 8.6-50 mg tablet 2 tab PO BEDTIME tamsulosin 0.4 mg capsule 0.4 mg PO DAILY loratadine 10 mg tablet 10 mg PO DAILY insulin glargine [Lantus Solostar U-100 Insulin] 100 unit/mL (3 mL) insulin pen 20 unit subcut DAILY@1300 atorvastatin 40 mg tablet 40 mg PO BEDTIME furosemide [Lasix] 40 mg tablet 40 mg PO DAILY Qty: 90 0RF (DME) Oxygen Home Use Kit See Rx Instructions .Route Rx Instructions: As directed Biotene Dry Mouth Oral Rinse Mouthwash 15 ml mucous membrane BID-QID PRN (Reason: dry mouth) Qty: 473 0RF Rx Instructions: swish for 15-30 secs , then spit out; do not swallow Print Language: Italian
[2024-04-18 21:25] LABS: MANUAL DIFF FLAG NO
[2024-04-18 21:30] LABS: VBG Base Excess 11.4 mmol/L; VBG HCO3 37 mmol/L (22-26); VBG pCO2 54 mmHg; VBG pH 7.44 (7.32-7.43); VBG pO2 45 mmHg
[2024-04-18 21:32] LABS: Venous Blood Gas Refer to POC result
[2024-04-18 21:35] LABS: INTERNATIONAL NORM RATIO 1.1 (0.9-1.1)
[2024-04-18 21:42] LABS: Alanine Aminotransferase 12 U/L (0-31); Albumin Level 3.6 g/dL (3.5-5.0); Alkaline Phosphatase 66 U/L (39-117); Anion Gap 16 (12-20); Aspartate Amino Transferase 20 U/L (5-31); Bilirubin Total 0.3 mg/dL (0.0-1.0); Blood Urea Nitrogen 25 mg/dL (9-16); Calcium 9.7 mg/dL (8.4-10.2); Carbon Dioxide 30 mmol/L (22-29); Chloride 98 mmol/L (96-108); Creatinine Clr Calc Pharmacy 38.5; Estimated Glomerular Filt Rate > 60; Glucose Random 198 mg/dL (60-115); Potassium 3.7 mmol/L (3.3-5.1); Sodium 140 mmol/L (135-145); Total Protein 7.3 g/dL (6.5-8.0)
[2024-04-18 21:48] LABS: B Type Natriuretic Peptide 125 pg/mL (<100)
[2024-04-18 22:03] LABS: Influenza A PCR NEGATIVE (Negative); Influenza B PCR NEGATIVE (Negative); Resp Syncy Virus RNA Qual PCR NEGATIVE (Negative); SARS COV2 PCR INHOUSE NEGATIVE (Negative)
[2024-04-18 22:14] LABS: Basophils Absolute Auto 0.1 X10*3/uL (0.0-0.2); Basophils Percent Auto 0.4 % (0-2); Eosinophils Absolute Auto 0.1 X10*3/uL (0.0-0.4); Eosinophils Percent Auto 0.8 % (0-4); Hematocrit 34.5 % (37.0-47.0); Hemoglobin 10.8 g/dl (12.0-16.0); Imm Gran Abs Auto 0.05 X10*3/uL (0.00-0.03); Imm Gran Pct Auto 0.3 % (0.0-0.4); Lymphocytes Absolute Auto 3.7 X10*3/uL (1.2-4.9); Mean Corpuscular HGB Conc 31.3 g/dl (31.0-35.0); Mean Corpuscular Hemoglobin 27.3 pg (27.0-33.0); Mean Corpuscular Volume 87.1 fL (80.0-98.0); Mean Platelet Volume 8.9 fL (9.4-12.3); Monocytes Absolute Auto 1.1 X10*3/uL (0.1-1.2); Monocytes Percent Auto 7.3 % (2-11); Neutrophils Absolute Auto 10.4 x10*3/uL (2.0-8.3); Neutrophils Percent Auto 67.2 % (45-73); Red Blood Count 3.96 X10*6/uL (4.20-5.50); Red Cell Distribution Width 16.4 % (11.0-16.0); White Blood Count 15.4 X10*3/uL (4.8-10.8)
[2024-04-18 22:17] LABS: Platelet Count 1278 X10*3/uL (160-400)
--- NOTE | 2024-04-18 22:33 | PC.NURSE ---
oxymask replaced with NC, on 4L 100%
[2024-04-18 23:20] VITALS: BP 103/62; PULSE 89; RESP 28; TEMP 36.7; O2SAT 99
--- NOTE | 2024-04-18 23:58 | PC.NURSE ---
Pt awaiting ambulance back home, respiratory therapist into provider education to pt regarding O2 managament.
[2024-04-19] VITALS (7 sets, daily range): BP systolic 119–139; BP diastolic 65–80; PULSE 75–98; RESP 18–27; TEMP 36.6–36.8; O2SAT 95–100
--- NOTE | 2024-04-19 05:37 | PC.NURSE ---
Notified provider of pt pain medication request, no orders at this time, Tylenol order in, second time offered for pain management, pt refused.
--- NOTE | 2024-04-19 05:39 | PC.NURSE ---
pt up out bed, decrease O2 to high 70's, pt back to bed, O2 after recovery back to 90's, pure wick in place. Son at the bed side
--- NOTE | 2024-04-19 06:28 | PC.NURSE ---
pt was suppose to be transferred home by ambulance, family concerned about her going home with oxygen tank not working well, this has happen before, education to family member to please call O2 company to trouble shoot the machine.
--- NOTE | 2024-04-19 09:06 | PHA.MEDREC ---
Pharmacy Consult ? Medication Reconciliation Pharmacy has completed the medication reconciliation. Reviewed med rec done by nursing, spoke to Maryjane who sent me a picture of the list that was used, confirmed she spoke with patient's son who confirmed Lantus dosing as well.
[2024-04-19] MEDS: Magnesium Oxide 400 MG TABLET PO (09:21)
[2024-04-19] MEDS: Cholecalciferol (Vitamin D3) 25 MCG TABLET 50 MCG PO (09:21)
[2024-04-19] MEDS: metFORMIN HCl ER 750 MG TAB.ER.24H PO (09:21)
[2024-04-19] MEDS: mycophenolate mofetiL 250 MG CAPSULE 500 MG PO (09:21)
[2024-04-19] MEDS: glipiZIDE 5 MG TABLET PO (09:22)
[2024-04-19] MEDS: Aspirin Enteric Coated 81 MG TABLET.DR PO (09:23)
[2024-04-19] MEDS: Furosemide 40 MG TABLET PO (09:23)
[2024-04-19] MEDS: DULoxetine HCl 60 MG CAPSULE.DR PO (09:23)
[2024-04-19] MEDS: Loratadine 10 MG TABLET PO (09:26)
--- NOTE | 2024-04-19 10:00 | PC.NURSE ---
Resumed care of pt at 0700. Pt resting in bed quietly, family at bedside. A/ox3, no sob/sob noted, pt maintaining O2 sat on 3L NC 97%-100%, s1 and s2 heard, HR 80s on elevator examiner, abdomen soft, non-tender on palpation. Pt c/o no pain at this time. Updated on plan for pt eval and pt/cm status. Med rec done from pt medication list at bedside and verified with pharmacy. Medicated per AUG with morning meds. Pt ate 25% of breakfast. Call pierre within reach, all needs met at this time.
--- NOTE | 2024-04-19 10:22 | PC.NURSE ---
Pt transferred into hospital bed. Resting comfortably, call pierre within reach.
--- NOTE | 2024-04-19 11:47 | MHC.CM.ED ---
Received case management consult overnight. Patient came to the ER d/t dyspnea. Family reports patient's concentrator is not working properly. Patient is active with [employer]. Renan, Resp Therapist made aware and reached out to [employer]. They will replace the concentrator today. Transportation booked for 3pm. [facility] with chart. Spoke with patient's son, Sergio, via telephone. Sergio verbalized understanding. Patient's son, Uzair, currently at bedside. Uzair verbalized understanding. Patient, Mayrjane PICHARDO and Ruth GIRON aware. Patient is active with [facility] for [facility] and physical therapy. Return referral made in [facility]. Continue to monitor for d/c needs.
[2024-04-19 12:29] LABS: Glucose, Whole Blood 231 mg/dL (60-115)
[2024-04-19] MEDS: Insulin Glargine,Hum.rec.anlog 100 UNIT/ML 10 ML VIAL 20 UNIT SUBCUT (12:32)
--- NOTE | 2024-04-19 15:04 | PC.NURSE ---
Pt dc'd to home with [facility]. pt's son confirmed that oxygen has arrived at the house.
== END 2024-04-19 15:06 | disposition home or self-care (01) ==
PROVIDERS: Emergency Provider Emergency Medicine; PCP Internal Medicine
DX: J44.89 Other specified chronic obstructive pulmonary disease (principal); R06.02 Shortness of breath; R00.0 Tachycardia, unspecified; Z99.81 Dependence on supplemental oxygen; Z03.818 Encounter for observation for suspected exposure to other biological agents ruled out; Z79.899 Other long term (current) drug therapy
CPT/HCPCS: 0241U; 36415; 71045; 80053; 82803; 82947; 83880; 85025; 85610; 93005; 99285

== ENCOUNTER → 2024-04-18 20:58 | Outpatient (BNV) | payer OTHER, SELFPAY | PROVIDERS: Emergency Provider Emergency Medicine; PCP Internal Medicine; Visit Provider Internal Medicine | DX: R00.0 Tachycardia, unspecified (principal); R94.31 Abnormal electrocardiogram [ECG] [EKG]; R06.02 Shortness of breath | CPT/HCPCS: 93010 ==

== ENCOUNTER 2024-05-02 11:46 | Outpatient (AMB) | payer OTHER, SELFPAY ==
--- NOTE | 2024-05-02 11:49 | MHC.PC.OV ---
Intake Visit Reasons: 3 Month Follow Up/[phone] Regional Property Manager Required: No Accompanied by: Daughter Allergies No Known Allergies Allergy (Verified 05/02/24 11:49) Tobacco use date assessed: 08/06/23 Fall risk assessment: No Falls in past year Last assessed Fall Risk: 05/02/24 Dental Screening Dental Screen Date: 10/19/23 HPI 3 Month Follow Up/[phone] HPI Details 83-year-old female with diabetes mellitus hypertension hypercholesterolemia history of CVA asthma COPD overlap syndrome with interstitial lung disease congestive heart failure calling in through Telehealth for follow-up. Last seen in 02/08/2024. Review of the notes ER visit in 04/15/2024 for shortness of breath placed on 4 L nasal cannula in the ER patient was given antibiotic with nebulizer COPD exacerbation patient has also seen Cardiology in April 05 echocardiogram showing cor pulmonale no further treatment cardiac-max.PAitnet has not been eating and advised glucerna. for the BS has been high still , monitor BP 113/69 PFSH Medical History Chest pain Pulmonary hypertension Hip pain, left Bilateral hip pain Respiratory tract infection Interstitial lung disease Viral pneumonia Pneumonitis Right lower quadrant abdominal pain UTI (urinary tract infection) Mass on back H/O thrombocytosis COPD with acute exacerbation Pneumonia Weakness Constipation Opacities of both lungs present on chest x-ray Elevated WBC count Viral syndrome Asthma-COPD overlap syndrome Chronic respiratory failure Acute and chronic respiratory failure Generalized anxiety disorder Urinary incontinence CVA (cerebral vascular accident) Osteopenia Lumbar spinal stenosis Interstitial pulmonary fibrosis Insomnia Cystocele Hypertension Hypercholesterolemia Type 2 diabetes mellitus with hyperglycemia Surgical History Hx of section Family History (Updated 04/05/24 @ 10:36 by Cheyenne Altman CMA) Mother No problems noted. Social History Household Members: Significant Other Housing: House Do you presently have visiting nurse or other home services: No Alcohol intake: former Patient Tobacco Use Status: Never used Tobacco Tobacco use type: Cigarette e-Cigarette/Vaping Use: Never Used Second Hand Smoke Exposure: No Advance Directives Date on File: 10/15/23 service: No Current occupational status: retired Cognitive needs: Yes ([employer] at home) Hearing needs: No Vision needs: Yes Questionnaire Thrive Questionnaire Date Thrive assessed: 03/10/24 RADHA-7 AMB Questionnaire RADHA-7 Date RADHA - 7 assessed: 10/19/23 Source: Developed by Drs. Farzad Mcqueen, Dianna Oscar, Jono Cuadra and colleagues, with an educational diallo from [employer]. Physical exam (Primary Care) Tobacco/Smoking Status: Tobacco use Status Tobacco use date assessed 08/06/23 05/02/24 11:50 Patient Tobacco Use Status Never used Tobacco 05/02/24 11:50 Tobacco use type Cigarette 05/02/24 11:50 e-Cigarette/Vaping Use Never Used 05/02/24 11:50 Thrive Assessment: Date of Thrive Assessment Date Thrive assessed 03/10/24 05/02/24 11:50 Telehealth Telehealth Telehealth Platform: Telephone Location of provider rendering services: practice address Location of patient: address on file Patient Identification confirmed using: Name, : Yes Telehealth method: video Patient verbally consented to treatment: Yes Patient verbally consented to billing insurance company: Yes Patient informed of any privacy concerns related to visit: Yes Minutes spent on Phone/Video with Pt.: 25 Coding Level of Care Code Tele Est Pt Level 4 (20402) Complex EM visit Add On G2211 Diagnoses Interstitial lung disease J84.9 Cor pulmonale I27.81 Type 2 diabetes mellitus with hyperglycemia, without long-term current use of insulin E11.65 Diabetes mellitus computer terminal operator insulin use: without [facility] use Hypercholesterolemia E78.00 Essential hypertension I10 Hypertension type: essential hypertension Cerebrovascular 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 asking for cough med. prescription will be sent but cough is most likely from the problem of interstitial lung disease. Will give at night to help with sleep only. (2) Cor pulmonale: Code(s): I27.81 - Cor pulmonale (chronic) Category: Medical Plan: Continue to follow-up with Pulmonary. (3) Type 2 diabetes mellitus with hyperglycemia: Code(s): E11.65 - Type 2 diabetes mellitus with hyperglycemia Category: Social Hx Qualifiers: Diabetes mellitus computer terminal operator insulin use: without [facility] use Qualified Code(s): E11.65 - Type 2 diabetes mellitus with hyperglycemia Plan: Decrease the amount of carbohydrate intake, pasta, bread, rice and potatoes are all sugar and that is aside from all the sweet stuff, remember that fruits are good but they are Sweet also. On glipizide 5 mg once a day Lantus 20 units once a day metformin 750 mg twice a day (4) Hypercholesterolemia: Code(s): E78.00 - Pure hypercholesterolemia, unspecified Category: Medical Plan: Avoid fried foods, chicken skin, eggs, butter margarine, pastries and meat. Be it pork or beef they have a lot of cholesterol LDL goal of less than 100 on atorvastatin 40 mg once a day (5) Hypertension: Comment: September 2014 echocardiogram normal left ventricular size ejection fraction 65-75% no wall motion abnormalities EKG 02/05/2020 normal sinus rhythm, left axis deviation nonspecific ST T wave changes June 2022 nuclear stress test no evidence of ISchemia by EKG, myocardial perfusion scan normal perfusion left ventricular ejection fraction 69% Code(s): I10 - Essential (primary) hypertension Category: Medical Qualifiers: Hypertension type: essential hypertension Qualified Code(s): I10 - Essential (primary) hypertension Plan: Continue with blood pressure medication. Decrease salt intake and exercise losartan 50 mg once a day (6) CVA (cerebral vascular accident): Comment: Left parietal September 2015 Code(s): I63.9 - Cerebral infarction, unspecified Category: Medical Qualifiers: CVA mechanism: embolism Precerebral and cerebral artery: unspecified precerebral artery Qualified Code(s): I63.10 - Cerebral infarction due to embolism of unspecified precerebral artery Plan: Supportive treatment and recliner prescriptions sent in (7) Congestive heart failure: Code(s): I50.9 - Heart failure, unspecified Category: Medical Qualifiers: Heart failure type: unspecified Heart failure chronicity: chronic Qualified Code(s): I50.9 - Heart failure, unspecified Plan: Continue with present medication recliner prescription sent in Medications: New [recliner] As directed 1 ea 0RF J84.10 - Pulmonary fibrosis, unspecified [BEDSIDE COMMODE] As directed 1 ea 0RF I50.9 - Heart failure, unspecified, I63.9 - Cerebral infarction, unspecified, J84.10 - Pulmonary fibrosis, unspecified benzonatate 200 mg PO BID-TID PRN 14 caps 0RF cough J84.10 - Pulmonary fibrosis, unspecified Changed From losartan 50 mg PO DAILY 90 tabs 3RF To losartan 25 mg PO DAILY 30 tabs 3RF Discontinued glipizide Discontinued Reason: Patient Completed Course 5 mg PO DAILY 90 tabs 1RF E11.65 - Type 2 diabetes mellitus with hyperglycemia
== END 2024-05-02 13:25 | disposition home or self-care (01) ==
LOC: HO.HMCH 11:46
PROVIDERS: PCP Internal Medicine; Visit Provider Internal Medicine
DX: J84.9 Interstitial pulmonary disease, unspecified (principal); I27.81 Cor pulmonale (chronic); E11.65 Type 2 diabetes mellitus with hyperglycemia; I63.10 Cerebral infarction due to embolism of unspecified precerebral artery; I50.9 Heart failure, unspecified; E78.00 Pure hypercholesterolemia, unspecified; I10 Essential (primary) hypertension

== ENCOUNTER → 2024-05-02 11:46 | Outpatient (BNVA) | payer OTHER, SELFPAY | PROVIDERS: PCP Internal Medicine; Visit Provider Internal Medicine ==

== ENCOUNTER 2024-05-08 10:52 | Outpatient (AMB) | payer OTHER, SELFPAY ==
--- NOTE | 2024-05-08 10:53 | A.OFFVIS_ITS ---
Intake Visit Reasons: copd Allergies No Known Allergies Allergy (Verified 05/08/24 10:53) HPI Comments Details: The patient is an 83 year woman presenting with worsening respiratory capacity now on oxygen supplementation. Apparently the patient had a CVA back in 2016. She was admitted to [facility]. Which she was there she did undergo a CT scan of the chest demonstrating interstitial lung changes as well as lymphadenopathy. The patient did follow-up with her primary care doctor which was placed at [facility]. Therefore she had a repeat CT scan again demonstrating the interstitial lung changes although the lymphadenopathy appear to have i mproved. We were able to look at that CT scan from 2016 from [facility]. The patient did then get a referral to Hematology Oncology due to significant thrombocytosis in the on myopathy initially. The workup was unremarkable. Patient ultimately was in her usual state health until recently when she started developing worsening shortness of breath for the last month. She started also developing some intermittent chest discomfort. Finally her family encouraged her to go to the ER and finally she did. She was seen at [facility] which had a repeat CT scan. Demonstrating a persistent interstitial changes in addition to the lymphadenopathy. I do not have the imaging studies to review. Patient was admitted to the hospital treated for pneumonia and also given prednisone. She was tested positive for COVID. Subsequently the patient was discharged on oxygen. She did follow-up with her primary care doctor. There she had a chest x-ray done at the [facility]. The patient did have a chest x-ray which I personally reviewed demonstrating evidence of pneumonitis superimposed on her interstitial lung disease. Therefore the patient is referred to Pulmonary. Currently she is on continues oxygen at 2 L. Although she is still very short of breath with minimal activity. She has also been having intermittent chest pains. During the visit we did go for brief walking and heart rate went up to about 130. During that walk the patient felt dizzy and like she was going to ?pass out?. At that moment we sat her down she regained her strength and heart rate did slow down to about 105. Weight we were able to go back to the room. I which point we did an EKG which demonstrated significant ST changes in the precordial leads suggestive of ischemia. Based on the fact the patient was crease syncopal also had intermittent chest discomfort in unstable vital signs with significant tachycardia will go ahead and refer the patient back to the ER for further evaluation. 08/21/2022 the patient is here for a pulmonary follow-up visit. The patient overall is doing well. She did have her echocardiogram which we personally reviewed. No significant pulmonary hypertension which is reassuring. She does have some diastolic dysfunction. She did start the prednisone and she is tolerating it well. Denies any significant adverse effects. She does complain of some blurred nest of the vision and some thirst. She her family does have a concomitant available in the check her sugar at times. He does 4, will be on the prednisone 10 mg daily to treat for the interstitial lung disease and will follow-up with an x-ray and 2 months. If the patient has any progression of the interstitial lung disease then we can consider antifibrotic agents. The patient continues use the oxygen with good effect. Overall she is doing better. 10/23/2022 the patient is here for a pulmonary follow-up visit. The patient overall has been doing well. She is tolerating the prednisone 10 mg daily. She did have any visit to the ER at [facility] because of chest discomfort. She was subsequently discharged. She continues use the prednisone at 10 mg daily. We did taken for 6 minutes walk testing the patient did fairly decent on a conserving device. She that she does need better portability because she cannot he handed her the tanks. Therefore going to request a port able oxygen concentrator from her [employer] company. In the meantime they can provide her with a conserving valve and smaller tank so she can carry them easier. Will go ahead and plan to repeat her pulmonary function studies which she comes back in 3-4 months. And subsequently after that will need further imaging studies. If we see any progression of the pulmonary fibrosis will consider antifibrotic agents. 02/26/2023 the patient is here for a pulmonary follow-up visit. The patient continues to have significant dyspnea on exertion. she has been using the oxygen. When she leaves the house she is using her portable oxygen concentrator. She is currently using at 2 L pulse. I did advise her to increase it to 4 L pulse when she is ambulating. Sometimes she does forget to breathe through her nose and does not activate the pulse conserving device. I did talk to about the importance about that. In the meantime the patient still desaturates on a brief walking oximetry. Even on 4 L she decreases down to the high 80s. Although the portable concentrator does provide her some relief when it comes to been able to have better portability if her condition worsens she may need to go back to continues oxygen. The patient had a CT scan back in the fall 2021. will request a repeat CT scan to see if there is any evidence of any progression of the pulmonary fibrosis. The patient did attempt to do pulmonary function studies but she was not able to. If the patient demonstrates worsening fibrosis then will treat her with antifibrotic agents for progressive disease. If the patient has any problems or concerns prior to the next visit she is to call for an earlier assessment. 05/24/2023 the patient is here for hospital follow-up visit. Back in April she developed worsening respiratory symptoms and she was admitted to local hospital and was treated for COPD exacerbation. There she had a chest x-ray demonstrating her interstitial lung disease. The patient had a negative viral panel for RSV flu and COVID. She was treated with prednisone in addition to doxycycline. She felt a little better she was discharged although she is still not her baseline. She still complaining about dry cough which has been bothering her at nighttime also increasing shortness of breath requiring additional oxygen. She now has a portable oxygen concentrator which she finds very helpful. The patient however sometimes seems to be need more than the feels he can provide. She is reluctant to switch over to regular oxygen tanks. Therefore will go ahead and treat her and hopefully we can decrease the inflammation of her lungs and her breathing so she can tolerate the p.o. see better. If her symptoms worsen then at that point walk to switch over to regular continues oxygen. The patient had been on prednisone for some time but then she has stopped it. Therefore, based on her significant interstitial lung disease will go ahead and start her on 10 mg of prednisone and also start her on CellCept as a steroid sparing agent specially since she has uncontrolled diabetes at this point because of her steroid use. We did talk about Ofev as a possibility. We will follow up with her in the next couple months and see how she does on the CellCept and prednisone combination. If the patient continue has progressive disease that will go looking to starting Ofev. The patient will also undergo blood work today to assess her blood gas and also to follow up her inflammatory markers. 10/25/2023 the patient is here for a hospital follow-up visit. She is still having hard time with her breathing. She was in a hospital with enterovirus that ultimately resulted in worsening respiratory failure. The patient required high levels of oxygen. She is still requiring significant amount of oxygen. She has been on the mycophenolate 500 mg b.i.d. that she can not tolerating. In addition to that we did review her chest x-ray demonstrating some interval worsening of the interstitial lung disease. Therefore, I do believe that based on her progressive pulmonary fibrosis that she will be a good candidate for Ofev. We did talk about the adverse effects that can come off the medication an d the benefits of potentially slowing down the degree of fibrosis. The patient having hard time with the conserving valve at this time. Specially since she tends to breathe through her mouth and since she has been recovering from her illness the patient has increased oxygen demands. We did do a 6 minute walk test. We did take her off the oxygen on room air the patient did require 1L to maintain a pulse ox of 94% at rest. The with activity she did require 5L nasal cannula with minimal activity to keep pox 92%. She may benefit from an Oxymizer pendant although she really does not leave the house months except for doctor's appointments. Typically when she travels she does have a transport chair. 05/09/2024 this is a telehealth visit. The patient felt very weak and could not come to the appointment. She recently talk to her primary care doctor who ordered [facility] actually hospice care. She is going to have information of visit soon. The patient does have significant advanced pulmonary fibrosis resulting in worsening progressive hypoxic respiratory failure. She is already on 3-4 L at rest and with activity she needs easily more than 6 L. Sometimes she desaturates down to 50% her family states. Unfortunately she could not tolerate the Ofev due to adverse effects. And she also tapered off the prednisone. Will go ahead and increase her mycophenolate to see if this provides her some relief. She also needs to have blood work. When she situated [facility] maybe the [facility] nurses can do the blood work at her home. Right now she is homebound. Whenever she leaves the house the family states that she needs doing via ambulance because they can not carry her or help her with her respiratory disease. So therefore the patient will be evaluated for hospice. I do believe she is a candidate for hospice in view of her progressive respiratory failure demonstrating further decompensation. [facility] Medical History Chest pain Pulmonary hypertension Hip pain, left Bilateral hip pain Respiratory tract infection Interstitial lung disease Viral pneumonia Pneumonitis Right lower quadrant abdominal pain UTI (urinary tract infection) Mass on back H/O thrombocytosis COPD with acute exacerbation Pneumonia Weakness Constipation Opacities of both lungs present on chest x-ray Elevated WBC count Viral syndrome Asthma-COPD overlap syndrome Chronic respiratory failure Acute and chronic respiratory failure Generalized anxiety disorder Urinary incontinence CVA (cerebral vascular accident) Osteopenia Lumbar spinal stenosis Interstitial pulmonary fibrosis Insomnia Cystocele Hypertension Hypercholesterolemia Type 2 diabetes mellitus with hyperglycemia Surgical History Hx of section Family History (Updated 04/05/24 @ 10:36 by Cheyenne Altman CMA) Mother No problems noted. Social History Household Members: Significant Other Housing: House Do you presently have visiting nurse or other home services: No Alcohol intake: former Patient Tobacco Use Status: Never used Tobacco Tobacco use type: Cigarette e-Cigarette/Vaping Use: Never Used Second Hand Smoke Exposure: No Advance Directives Date on File: 10/15/23 service: No Current occupational status: retired Cognitive needs: Yes ([employer] at home) Hearing needs: No Vision needs: Yes Review of Systems Const Reports fatigue Eyes Denies change in vision ENT Reports Normal hearing present, Denies change in voice and Denies dizziness Card Denies chest pain, Reports dyspnea and Reports dyspnea on exertion Resp Reports cough, Reports dyspnea, Reports dyspnea on exertion and Denies wheezing GI Reports no additional complaints Musc Reports no additional complaints, Reports abnormal gait, Reports myalgias and Reports muscle weakness Skin/Breast Denies rash Neuro Reports Normal hearing present, Reports abnormal gait and Denies dizziness Endo Reports fatigue Paco/Lymph Denies easy bruising and Denies lymphadenopathy Aller/Immun Denies wheezing Physical Exam Const General: cooperative Orientation/consciousness: patient oriented x3 Resp Effort & Inspection: able to speak in complete sentences Neuro General: patient oriented x3 Cranial nerves: Yes Normal hearing present Telehealth Telehealth Telehealth Platform: Telephone Location of provider rendering services: practice address Location of patient: address on file Patient Identification confirmed using: Name, : Yes Telehealth method: voice only Patient verbally consented to treatment: Yes Patient verbally consented to billing insurance company: Yes Patient informed of any privacy concerns related to visit: Yes Assessment & Plan Assessment & Plan (1) Chronic respiratory failure: Code(s): J96.10 - Chronic respiratory failure, unspecified whether with hypoxia or hypercapnia Category: Medical Qualifiers: Respiratory failure complication: hypoxia Qualified Code(s): J96.11 - Chronic respiratory failure with hypoxia (2) Pneumonitis: Code(s): J18.9 - Pneumonia, unspecified organism Category: Medical (3) Interstitial lung disease: Comment: June 2022 Code(s): J84.9 - Interstitial pulmonary disease, unspecified Category: Medical (4) Interstitial pulmonary fibrosis: Code(s): J84.10 - Pulmonary fibrosis, unspecified Category: Medical Plan Prednisone 10mg tapered off will try to increase cellcept 1000mg BID continue oxygen supplementation: 2L at rest, 5L with activity to keep pox>89% stopped OFEV due to worsening side effects Hospice [facility] to provide family with an informational visit Bloodwork F/U 3-4 months Orders: Orders Basic Metabolic Panel Today J84.10 - Pulmonary fibrosis, unspecified Liver Panel Today J84.10 - Pulmonary fibrosis, unspecified Complete Blood Count Auto Diff Today J84.10 - Pulmonary fibrosis, unspecified Medications: New sodium chloride 0.65% (Saline Nasal) while awake 2 sprays intranasal Q2H PRN 44 mL 11RF dry nasal passages 14 days sodium chloride-aloe vera ([place] Saline nasal gel) 1 appl topical TID PRN 14.1 grams 6RF dry nasal passages 30 days Changed From mycophenolate mofetil 500 mg PO BID 30 days 60 tabs 6RF To mycophenolate mofetil 1,000 mg (2 x 500 mg) PO BID 120 tabs 6RF 30 days Coding Level of Care Code Tele Est Pt Level 4 (49691) Complex EM visit Add On G2211 Diagnoses Chronic respiratory failure with hypoxia J96.11 Respiratory failure complication: hypoxia Pneumonitis J18.9 Interstitial lung disease J84.9 Interstitial pulmonary fibrosis J84.10 Time Spent (min) 15
== END 2024-05-08 11:49 | disposition home or self-care (01) ==
LOC: HO.HPS 10:52
PROVIDERS: PCP Internal Medicine; Visit Provider Hospitalist
DX: J96.11 Chronic respiratory failure with hypoxia (principal); J84.9 Interstitial pulmonary disease, unspecified; J84.10 Pulmonary fibrosis, unspecified
CPT/HCPCS: 99442

== ENCOUNTER → 2024-05-08 10:52 | Outpatient (BNVA) | payer OTHER, SELFPAY | PROVIDERS: PCP Internal Medicine; Visit Provider Hospitalist ==

== ENCOUNTER 2024-07-04 08:48 | Outpatient (AMB) | payer OTHER, SELFPAY ==
--- NOTE | 2024-07-04 08:58 | A.OFFPC_ITS ---
Intake Visit Reasons: Pain Management Allergies No Known Allergies Allergy (Verified 07/04/24 08:59) Tobacco use date assessed: 07/04/24 Fall risk assessment: No Falls in past year Last assessed Fall Risk: 07/04/24 Dental Screening Dental Screen Date: 07/04/24 Did you have a dental visit in the last 12 months?: No Did you have a dental problem in the last 6 months where you did not have access to dental care?: No Was dental information given to patient?: Patient has dentist HPI Pain Management HPI Details The patient is an 83-year-old female presenting with general pain and dyspnea. The patient was hospitalized in May for pneumonia and congestive heart failure, during which she received antibiotics and Lasix (furosemide). Since discharge, she has experienced severe generalized pain, which she describes as her bones feeling like they are cracking and shattering. Tylenol has been used with some effect, but the pain remains severe enough to cause nocturnal vocalizations of distress. The patient also reports difficulty breathing, describing a sensation as though something is obstructing her airflow. Blood-tinged sputum and mucus have been noted, raising concerns among caregivers. Current pain management with Tylenol has proven insufficient, necessitating consideration of stronger analgesics while also managing potential side effects. The patient has shown resistance to stronger pain medications due to side effects but has been willing to attempt tramadol at night for better symptom control. The patient is notably underweight and frail, complicating her medical condition and necessitating consideration for palliative approaches. She is on continuous oxygen therapy and expresses significant distress over her current quality of life. - Respiratory: Reports difficulty breath ing, mucus with blood in sputum. - Musculoskeletal: Reports severe genera lized pain, primarily affects bones. - Hematologic: Reports blood-tinged sput um. PFSH Medical History Chest pain Pulmonary hypertension Hip pain, left Bilateral hip pain Respiratory tract infection Interstitial lung disease Viral pneumonia Pneumonitis Right lower quadrant abdominal pain UTI (urinary tract infection) Mass on back H/O thrombocytosis COPD with acute exacerbation Pneumonia Weakness Constipation Opacities of both lungs present on chest x-ray Elevated WBC count Viral syndrome Asthma-COPD overlap syndrome Chronic respiratory failure Acute and chronic respiratory failure Generalized anxiety disorder Urinary incontinence CVA (cerebral vascular accident) Osteopenia Lumbar spinal stenosis Interstitial pulmonary fibrosis Insomnia Cystocele Hypertension Hypercholesterolemia Type 2 diabetes mellitus with hyperglycemia Surgical History (Reviewed 04/05/24 @ 10:35 by Cheyenne Altman [facility]) Hx of section Family History (Updated 04/05/24 @ 10:36 by Cheyenne Altman CMA) Mother No problems noted. Social History Household Members: Significant Other Housing: House Do you presently have visiting nurse or other home services: No Alcohol intake: former Patient Tobacco Use Status: Never used Tobacco Tobacco use type: Cigarette e-Cigarette/Vaping Use: Never Used Second Hand Smoke Exposure: No Advance Directives Date on File: 10/15/23 service: No Current occupational status: retired Cognitive needs: Yes ([employer] at home) Hearing needs: No Vision needs: Yes Questionnaire PHQ-9 Over the last 2 weeks, how often have you been bothered by any of the following problems? 1. Little interest or pleasure in doing things: several days 2. Feeling down, depressed, or hopeless: nearly every day 3. Trouble falling or staying asleep, or sleeping too much: nearly every day 4. Feeling tired or having little energy: more than half the days 5. Poor appetite or overeating: more than half the days 6. Feeling bad about yourself - or that you are a failure or have let yourself or your family down: not at all 7. Trouble concentrating on things, such as reading the newspaper or watching television: not at all 8. Moving or speaking so slowly that other people could have noticed. Or the opposite - being so fidgety or restless that you have been moving around a lot more than usual: more than half the days 9. Thoughts that you would be better off or of hurting yourself in some way: not at all Total score: 13 Depression Screening Interpretation: Positive Depression Screening Done: Yes Source: Developed by Drs. Farzad Mcqueen, Dianna Oscar, Jono Cuadra and colleagues, with an educational diallo from [employer]. Thrive Questionnaire Date Thrive assessed: 07/04/24 I am a: Parent/Caregiver What is your living situation today?: I have a steady place to live Within the past 12 months, did the food you bought not last and you didn't have the money to get more?: Never true Within the past 12 months, did you worry whether your food would run out before you got money to buy more?: Never true Do you have trouble paying for medicines?: No Do you have trouble getting transportation to medical appointments?: No Do you have trouble paying your heating and electricity bill?: No Do you have trouble taking care of your child, family member or friend?: No Do you have trouble with day-to-day activities such as bathing, preparing meals, shopping, managing finances, etc.?: No Are you currently unemployed and looking for a job?: No Are you interested in more education?: No Currently or been in a relationship where the following occur: No concerns reported THRIVE Score: 0 AUDIT C Alcohol Use Questionnaire (AUDIT-C) 1. How often do you have a drink containing alcohol?: Never 3. How often do you have six or more drinks on one occasion?: Never Total Score: 0 RADHA-7 AMB Questionnaire RADHA-7 Date RADHA - 7 assessed: 07/04/24 Feeling nervous, anxious, or on edge: 1 = Several days Not being able to stop or control worryin = Not at all Worrying too much about different things: 0 = Not at all Trouble relaxin = Several days Being so restless that it is hard to sit still: 0 = Not at all Becoming easily annoyed or irritable: 1 = Several days Feeling afraid as if something awful might happen: 0 = Not at all Total RADHA-7 score (0-4 normal; 5-9 mild; 10-14 moderate; 15-21 severe): 3 Source: Developed by Drs. Farzad Mcqueen, Dianna Oscar, Jono Cuadra and colleagues, with an educational diallo from [employer]. Physical exam (Primary Care) Tobacco/Smoking Status: Tobacco use Status Tobacco use date assessed 07/04/24 07/04/24 09:02 Patient Tobacco Use Status Never used Tobacco 07/04/24 09:02 Tobacco use type Cigarette 07/04/24 09:02 e-Cigarette/Vaping Use Never Used 07/04/24 09:02 PHQ-9: PHQ-9 Score PHQ-9: Total score 13 07/04/24 10:22 Depression Screening Interpretation: Positive Thrive Assessment: Date of Thrive Assessment Date Thrive assessed 01/14/25 01/14/25 09:02 Currently or been in a relationship where the following occur: No concerns reported Telehealth Telehealth Telehealth Platform: Telephone Location of provider rendering services: practice address Location of patient: address on file Patient Identification confirmed using: Name, : Yes Telehealth method: video (Android) Patient verbally consented to treatment: Yes Patient verbally consented to billing insurance company: Yes Patient informed of any privacy concerns related to visit: Yes Minutes spent on Phone/Video with Pt.: 20 Coding Level of Care Code Tele Est Pt Level 4 (81663) Diagnoses Interstitial pulmonary disease, unspecified J84.9 Chronic obstructive pulmonary disease, unspecified J44.9 Acute heart failure with preserved ejection fraction (HFpEF) I50.31 Essential hypertension I10 Hypertension type: essential hypertension Assessment & Plan Assessment & Plan (1) Interstitial pulmonary disease, unspecified: Code(s): J84.9 - Interstitial pulmonary disease, unspecified Category: Medical (2) Chronic obstructive pulmonary disease, unspecified: Code(s): J44.9 - Chronic obstructive pulmonary disease, unspecified Category: Medical (3) Acute heart failure with preserved ejection fraction (HFpEF): Code(s): I50.31 - Acute diastolic (congestive) heart failure Category: Medical (4) Hypertension: Comment: September 2014 echocardiogram normal left ventricular size ejection fraction 65-75% no wall motion abnormalities EKG 02/05/2020 normal sinus rhythm, left axis deviation nonspecific ST T wave changes June 2022 nuclear stress test no evidence of ISchemia by EKG, myocardial perfusion scan normal perfusion left ventricular ejection fraction 69% Code(s): I10 - Essential (primary) hypertension Category: Medical Qualifiers: Hypertension type: essential hypertension Qualified Code(s): I10 - Essential (primary) hypertension Plan - Initiate tramadol at nighttime to alleviate pain severity. - Encourage increased fluid intake to counteract dehydration and assist with mucus clearance due to Lasix therapy. - Recommend continued home Oxygen therapy for dyspnea management. - Schedule an abdominal ultrasound that includes kidney evaluation while being aware of potential dual pathology involving abdominal and renal systems. - Evaluate the potential for palliative care and hospice interventions to improve the patient's quality of life. During the visit, we discussed the patient's recent severe pain associated with her previous pneumonia and congestive heart failure. We explored analgesic options, including the introduction of tramadol during nighttime to potentially improve pain management while assessing her tolerance to this medication. We emphasized the importance of hydration to mitigate the effects of Lasix and help with respiratory secretions. Additionally, the need for a comprehensive ultrasound of the abdomen, including renal assessment, was addressed, noting that existing imaging may cover these areas. The conversation concluded with a mention of palliative care possibilities given the patient's frail condition and significant distress, aiming to enhance comfort and quality of life effectively. - Take tramadol as prescribed at nighttime for pain relief, beginning with a half tablet. - Drink plenty of fluids throughout the day to prevent dehydration. - Continue using oxygen therapy consistently. - Schedule and attend the abdominal ultrasound appointment promptly. - Monitor and report any worsening symptoms or new issues such as increased breathing difficulty or changes in pain. - Consider discussing palliative care options with family for added support. Medications: New tramadol 50 mg PO BEDTIME 30 tabs 0RF J44.9 - Chronic obstructive pulmonary disease, unspecified
== END 2024-07-04 12:01 | disposition home or self-care (01) ==
LOC: HO.HMCH 08:48
PROVIDERS: PCP Internal Medicine; Visit Provider Internal Medicine
DX: J84.9 Interstitial pulmonary disease, unspecified (principal); J44.9 Chronic obstructive pulmonary disease, unspecified; I50.31 Acute diastolic (congestive) heart failure; I10 Essential (primary) hypertension

== ENCOUNTER 2024-07-23 21:46 | Emergency (ER) | payer OTHER, SELFPAY ==
--- NOTE | 2024-07-23 | ECG_ITS ---
Test Reason : SHORTNESS OF BREATH Blood Pressure : */* mmHG Vent. Rate : 90 BPM Atrial Rate : 90 BPM P-R Int : 144 ms QRS Dur : 84 ms QT Int : 376 ms P-R-T Axes : 19 -21 -25 degrees QTcB Int : 459 ms Normal sinus rhythm Nonspecific T wave abnormality Abnormal ECG When compared with ECG of 18-Apr-2024 20:58, Borderline criteria for Anterior infarct are no longer Present Nonspecific T wave abnormality, worse in Lateral leads Referred By: Generic ED Physician Electronically Signed By: Mejia Nicole
--- NOTE | ~2024-07-23 | XR_ITS ---
CLINICAL HISTORY: dyspnea hypoxia 1 view chest x-ray Comparison: CR/SR - XR CHEST 1V - 04/18/24 21:18 EDT Findings: Increased interstitial lung markings throughout both lungs, present on multiple priors with a slightly subpleural predominance, suggestive of fibrotic interstitial lung disease. Moderate cardiomegaly. No effusion or pneumothorax. No acute fracture. IMPRESSION: 1. No acute findings. 2. Fibrotic interstitial lung disease. This document has been electronically signed by: Ovidio Noe MD on 07/23/2024 23:41:22
[2024-07-23 21:51] VITALS: BP 91/45; BP 95/50; PULSE 85; PULSE 93; RESP 30; O2SAT 79; O2SAT 82; BMI 21.5
[2024-07-23 22:15] LABS: MANUAL DIFF FLAG NO
--- NOTE | 2024-07-23 22:17 | ED.SOB ---
HPI - SOB/Dyspnea General Chief Complaint: Dyspnea Stated Complaint: SOB x30 mins, o2 dropping during physical activity Time Seen by Provider: 07/23/24 22:16 Source: patient and other ( Son, Sergio) Mode of arrival: EMS Limitations: language barrier (Patient speaks Slovenian only, [facility] senior property accountant used) History of Present Illness ED Provider: Dr. Manjinder Bauman HPI Narrative: 83-year-old female with a history of pulmonary hypertension, interstitial lung disease, pneumonitis, COPD, anxiety, CVA , CHF, lumbar spinal stenosis, who was brought into the emergency department by ambulance for evaluation of shortness of breath that began approximately 45 minutes prior to arrival. Paramedics reported that the patient's O2 saturation was 80% on room air and on 2 L of oxygen her O2 saturation came up to 95%. On presentation the patient was dyspneic and tachypneic, she was diaphoretic and appeared to be in respiratory distress. Patient states that she had chills at home but no fever. She states she had an occasional cough. She was having chest pain and shortness of breath. She denied nausea, vomiting or diarrhea. She denied myalgias arthralgias. information was obtained from the patient's son, Sergio who is here in the emergency department. He states that his mother wears 6 L of oxygen via nasal cannula continually secondary to her interstitial fibrosis. He states that she has frequent episodes where she has difficulty breathing and has had congestive heart failure in the past. Related Data Home Medications ?Medication ?Instructions ?Recorded ?Confirmed Oxygen Home Use 10/23/22 03/16/24 tamsulosin 0.4 mg capsule 0.4 mg PO BEDTIME 02/24/24 04/19/24 insulin glargine 100 unit/mL (3 20 unit subcut DAILY@1300 03/09/24 04/19/24 mL) subcutaneous pen (Lantus Solostar U-100 Insulin) loratadine 10 mg tablet 10 mg PO DAILY 03/09/24 04/19/24 glipizide 5 mg tablet 5 mg PO DAILY 05/08/24 Previous Rx's ?Medication ?Instructions ?Recorded [facility] G2 blood glucose moniter #1 ea 10/02/21 starter kit Medline ext cuff nitrile glove #1 ea 12/03/21 sterile pairs (medium) Medline wall mount sharps #1 ea 12/03/21 container 3 galloon red medline basic face mask #1 12/03/21 O2 Gas System Home Transfill Unit #1 11/23/22 ([id number]) Washable Incontinence Pads (Physical Sciences Instructor #60 ea 07/09/23 Pad) BEDSIDE COMMODE #1 ea 10/26/23 WIPES #2 ea 10/26/23 incontinence pad, liner, disp #180 ea 12/09/23 GERMICIDAL DISPOSABLE WIPES #2 ea 01/06/24 HOSPITAL BED #1 ea 01/06/24 MEDIUM PULL UPS #90 ea 01/06/24 Mattress for hospital bed #1 ea 01/06/24 Semi- Electric Hospital Bed with #1 01/06/24 Mattress and Rails ULTRA THIN PADS #30 ea 01/06/24 ULTRASORB UNDER PADS #1 ea 01/06/24 commode (bedside commode) #1 ea 01/06/24 medline alcohol prep pads 1.75x3 #1 01/06/24 medlinecontour plus bladder #90 ea 01/06/24 control pads saliva substitute combo no.9 15 ml mucous membrane BID-QID PRN 03/17/24 (Biotene Dry Mouth Oral Rinse dry mouth #473 mL mouthwash) aspirin 81 mg tablet,delayed 81 mg PO DAILY 90 days #90 tabs 04/28/24 release (Adult Aspirin Regimen) atorvastatin 40 mg tablet 40 mg PO BEDTIME #90 tabs 04/28/24 cholecalciferol (vitamin D3) 50 50 mcg PO DAILY 90 days #90 caps 04/28/24 mcg (2,000 unit) capsule gabapentin 300 mg capsule 300 mg PO BEDTIME 90 days #90 caps 04/28/24 metformin 750 mg tablet,extended 750 mg PO BID 90 days #180 tabs 04/28/24 release 24 hr BEDSIDE COMMODE #1 05/02/24 benzonatate 200 mg capsule 200 mg PO BID-TID PRN cough #14 05/02/24 caps losartan 25 mg tablet 25 mg PO DAILY #30 tabs 05/02/24 recliner #1 05/02/24 mycophenolate mofetil 500 mg tablet 1,000 mg (2 x 500 mg) PO BID 30 05/08/24 days #120 tabs sodium chloride 0.65 % nasal spray 2 spray intranasal Q2H PRN dry 05/08/24 aerosol (Saline Nasal) nasal passages 14 days #44 mL sodium chloride-aloe vera nasal 1 appl topical TID PRN dry nasal 05/08/24 gel ([place] Saline nasal gel) passages 30 days #14.1 grams ferrous sulfate 325 mg (65 mg 325 mg PO DAILY #90 tabs 06/06/24 iron) tablet (FeroSul) pen needle, diabetic 32 gauge x #100 ea 06/22/24/ (BD Ultra-Fine Micro Pen Needle) azithromycin 250 mg tablet See Rx Instructions PO .COMPLEX #6 06/23/24 (Zithromax) tabs RECLINER #1 ea 06/29/24 10 wedge cushion #1 ea 06/30/24 fluticasone propionate 50 2 spray intranasal DAILY #16 grams 06/30/24 mcg/actuation nasal spray,suspension (Flonase Allergy Relief) hand held shower wand #1 ea 06/30/24 miscellaneous medical supply #1 ea 06/30/24 acetaminophen 500 mg tablet 1,000 mg (2 x 500 mg) PO TID PRN 07/10/24 Pain #90 tabs tramadol 50 mg tablet 50 mg PO BEDTIME #30 tabs 07/10/24 duloxetine 60 mg capsule,delayed 60 mg PO DAILY 90 days #90 caps 07/21/24 release furosemide 40 mg tablet (Lasix) 40 mg PO DAILY #90 tabs 07/21/24 magnesium oxide 400 mg (241.3 mg 400 mg PO .QD #30 tabs 07/21/24 magnesium) tablet Allergies Allergy/AdvReac Type Severity Reaction Status Date / Time No Known Allergies Allergy Verified 07/23/24 22:00 Review of Systems Review of Systems: Yes all other systems are reviewed and are negative [facility] Past Medical History [facility] Narrative: social history: The patient denies tobacco, alcohol and drug use. The patient lives with her son, Sergio who was here in the emergency department Medical History Chest pain Pulmonary hypertension Hip pain, left Bilateral hip pain Respiratory tract infection Interstitial lung disease Viral pneumonia Pneumonitis Right lower quadrant abdominal pain UTI (urinary tract infection) Mass on back H/O thrombocytosis COPD with acute exacerbation Pneumonia Weakness Constipation Opacities of both lungs present on chest x-ray Elevated WBC count Viral syndrome Asthma-COPD overlap syndrome Chronic respiratory failure Acute and chronic respiratory failure Generalized anxiety disorder Urinary incontinence CVA (cerebral vascular accident) Osteopenia Lumbar spinal stenosis Interstitial pulmonary fibrosis Insomnia Cystocele Hypertension Hypercholesterolemia Type 2 diabetes mellitus with hyperglycemia Surgical History Hx of section Family History Family History (Updated 04/05/24 @ 10:36 by Cheyenne Altman CMA) Mother No problems noted. Social History Social History Household Members: Significant Other Housing: House Do you presently have visiting nurse or other home services: No Alcohol intake: former Patient Tobacco Use Status: Never used Tobacco Tobacco use type: Cigarette e-Cigarette/Vaping Use: Never Used Second Hand Smoke Exposure: No Advance Directives Date on File: 10/15/23 service: No Current occupational status: retired Cognitive needs: Yes ([employer] at home) Hearing needs: No Vision needs: Yes Physical Exam Vital Signs: Vital Signs: Last Vital Signs Temp 98.3 F 07/24/24 08:21 Pulse 81 07/24/24 08:21 Resp 22 H 07/24/24 08:21 BP 105/56 L 07/24/24 08:21 Pulse Ox 95 07/24/24 08:21 O2 Del Method Nasal Cannula 07/24/24 08:21 O2 Flow Rate 6 07/24/24 08:21 Oxygen Flow Rate 2 07/23/24 21:51 BMI result Body Mass Index 21.5 Vital signs revealed that the patient was afebrile, she was tachypneic with a respiratory rate of 30, patient had an O2 saturation of 99% on BiPAP at 12/5/50% Exam: General: Awake, alert, able to answer questions, tachypneic, diaphoretic, patient to be in respiratory distress Head: Normocephalic, atraumatic EENT: PERRL, Lids normal, sclera normal, conjunctiva normal, nose normal , ears normal, throat without erythema or exudates Neck: Supple, no adenopathy Lung: breath sounds symmetric, diffuse rales Chest: symmetric movement, nontender Heart: regular rate and rhythm, normal S1, S2 no murmurs or rubs Abdomen: soft, non-tender, nondistended, normal bowel sounds Back: no vertebral tenderness, no CVAT Extremities: no deformities, moves all extremities symmetrically Neuro: Awake, alert, oriented, normal speech, cranial nerves intact, moves all extremities symmetrically Psych: Pleasant, cooperative Medications Administered Discontinued Medications Generic Name Dose Route Start Last Admin Trade Name Giovanni PRN Reason Stop Dose Admin Furosemide 20 mg 07/24/24 00:46 07/24/24 00:52 Furosemide 20 Mg/2 Ml Vial IVPUSH 07/24/24 00:47 20 mg ONCE ONE Administration Protocol Furosemide 40 mg 07/24/24 02:23 07/24/24 02:29 Furosemide 40 Mg/4 Ml Vial IVPUSH 07/24/24 02:24 40 mg ONCE ONE Administration Protocol Medical Decision Making Medical Decision Making MDM Narrative: 83-year-old female with a history of pulmonary hypertension, interstitial lung disease, pneumonitis, COPD, anxiety, CVA , CHF, lumbar spinal stenosis, who was brought into the emergency department by ambulance for evaluation of shortness of breath that began approximately 45 minutes prior to arrival. patient's initial O2 saturation was 80% on 2 L of oxygen via nasal cannula. On presentation to the emergency department patient's O2 saturations were low despite being on oxygen via nasal cannula, Patient was tachypneic and dyspneic. The lung exam revealed diffuse rales Differential diagnosis: Includes but is not limited to congestive heart failure, exacerbation of chronic lung disease, anemia, electrolyte abnormalities, myocardial infarction, myocardial ischemia Course: Given the patient's respiratory distress, she was initially placed on BiPAP with significant improvement of her oxygenation and respiratory rate. My independent interpretation of the patient's laboratory evaluation is as follows: WBC elevated 12,700. Chronic normocytic anemia with an H&H of 9 and 31.7. Chronic thrombocytopenia with platelet count of 995532. BUN creatinine were normal. Glucose elevated 181. Lactic acid was elevated 5.1. COVID-19, influenza and RSV were negative. BNP was elevated at 1095- compared to 125 on 04/18/2024 which is a significant elevation. Magnesium was low at 1.3. Troponin was detectable but not elevated at 13.3. venous blood gas: pH 7.48, pCO2 44 - consistent with respiratory alkalosis due to her rapid respiratory rate. Lactic acid was elevated at 5.1 which is most likely caused by her hypoxia. This improved to 2.1 after treatment with BiPAP and diuresis The patient's chest x-ray revealed increased interstitial infiltrates. Given her elevated BNP and her sudden onset shortness of breath, I suspect that the patient has flash pulmonary edema on top of her interstitial lung disease. The patient was treated with Lasix 20 mg IV and Lasix 40 mg IV. Patient was having difficulty urinating and a Suero catheter was placed to monitor her eyes and nose. Patient put out over a L of urine. The patient was kept on BiPAP approximately 5-6 hours and was then placed on 6 L of oxygen via nasal cannula. Patient's O2 saturations were in the 96% range and the patient felt significantly better. I believe that the patient has been significantly diuresed and I do not think that she needs to be hospitalized and I did discuss this with both the patient and the patient's son. They both agreed that the patient seems to be back at her baseline and they would like to go home at this time. Therefore the patient was discharged home With printed and verbal instructions. Admission/Observation Consideration of admission/observation: Escalation of care including admission/observation considered Lab Data MDM Lab Attestation statement: I reviewed the patient's lab results. 07/23/24 22:10 07/23/24 22:10 Labs: Lab Results 07/23/24 07/23/24 07/23/24 Range/Units 22:10 22:19 23:07 WBC 12.7 H (4.8-10.8) X10*3/uL RBC 3.62 L (4.20-5.50) X10*6/uL Hgb 9.7 L (12.0-16.0) g/dl Hct 31.2 L (37.0-47.0) % MCV 86.2 (80.0-98.0) fL MCH 26.8 L (27.0-33.0) pg MCHC 31.1 (31.0-35.0) g/dl RDW 17.1 H (11.0-16.0) % Plt Count 937 H D (160-400) X10*3/uL MPV 9.1 L (9.4-12.3) fL Immature Gran % (Auto) 0.3 (0.0-0.4) % Neut % (Auto) 66.8 (45-73) % Lymph % (Auto) 17.6 L (20-40) % [place] % (Auto) 6.8 (2-11) % Eos % (Auto) 7.5 H (0-4) % Baso % (Auto) 1.0 (0-2) % Lymph # (Auto) 2.2 (1.2-4.9) X10*3/uL [place] # (Auto) 0.9 (0.1-1.2) X10*3/uL Eos # (Auto) 1.0 H (0.0-0.4) X10*3/uL Baso # (Auto) 0.1 (0.0-0.2) X10*3/uL Abs Immat Gran (auto) 0.04 H (0.00-0.03) X10*3/uL Absolute Neuts (auto) 8.5 H (2.0-8.3) x10*3/uL Absolute Nucleated RBC 0.000 (0.0-0.012) X10*3/uL Nucleated RBC % (auto) 0.0 (0.0-0.2) /100WBC PT 13.7 H (10.9-12.4) SEC INR 1.2 H (0.9-1.1) VBG pH 7.48 H (7.32-7.43) VBG pCO2 44 mmHg VBG pO2 36 mmHg VBG HCO3 33 H (22-26) mmol/L VBG O2 Saturation 46.0 % VBG Base Excess 9.1 mmol/L Sodium 142 (135-145) mmol/L Potassium 3.3 (3.3-5.1) mmol/L Chloride 98 (96-108) mmol/L Carbon Dioxide 27 (22-29) mmol/L Anion Gap 20 (12-20) BUN 13 (9-16) mg/dL Creatinine 0.78 (0.5-1.4) mg/dL Estim Creat Clear Calc 39.9 Estimated GFR > 60 Random Glucose 181 H (60-115) mg/dL Lactic Acid 5.1 H* (0.5-2.0) mmol/L Lactic Acid F/U @ 2Hr (0.5-2.0) mmol/L Lactic Acid F/U @ 4Hr (0.5-2.0) mmol/L Calcium 9.2 (8.4-10.2) mg/dL Magnesium 1.3 L* (1.6-2.6) mg/dL Total Bilirubin 0.6 (0.0-1.0) mg/dL AST 25 (5-31) U/L ALT 7 (0-31) U/L Alkaline Phosphatase 83 (39-117) U/L Troponin I High Sens 13.3 D (<3.5-17.0) ng/L B-Natriuretic Peptide 1095 H (<100) pg/mL Total Protein 8.0 (6.5-8.0) g/dL Albumin 3.7 (3.5-5.0) g/dL Lipase 22 (8-78) U/L Influenza Type A (PCR) NEGATIVE (Negative) Influenza Type B (PCR) NEGATIVE (Negative) RSV RNA Qual (PCR) NEGATIVE (Negative) SARS-CoV-2 RNA (RT-PCR) NEGATIVE (Negative) 07/24/24 07/24/24 Range/Units 01:47 04:33 WBC (4.8-10.8) X10*3/uL RBC (4.20-5.50) X10*6/uL Hgb (12.0-16.0) g/dl Hct (37.0-47.0) % MCV (80.0-98.0) fL MCH (27.0-33.0) pg MCHC (31.0-35.0) g/dl RDW (11.0-16.0) % Plt Count (160-400) X10*3/uL MPV (9.4-12.3) fL Immature Gran % (Auto) (0.0-0.4) % Neut % (Auto) (45-73) % Lymph % (Auto) (20-40) % [place] % (Auto) (2-11) % Eos % (Auto) (0-4) % Baso % (Auto) (0-2) % Lymph # (Auto) (1.2-4.9) X10*3/uL [place] # (Auto) (0.1-1.2) X10*3/uL Eos # (Auto) (0.0-0.4) X10*3/uL Baso # (Auto) (0.0-0.2) X10*3/uL Abs Immat Gran (auto) (0.00-0.03) X10*3/uL Absolute Neuts (auto) (2.0-8.3) x10*3/uL Absolute Nucleated RBC (0.0-0.012) X10*3/uL Nucleated RBC % (auto) (0.0-0.2) /100WBC PT (10.9-12.4) SEC INR (0.9-1.1) VBG pH (7.32-7.43) VBG pCO2 mmHg VBG pO2 mmHg VBG HCO3 (22-26) mmol/L VBG O2 Saturation % VBG Base Excess mmol/L Sodium (135-145) mmol/L Potassium (3.3-5.1) mmol/L Chloride (96-108) mmol/L Carbon Dioxide (22-29) mmol/L Anion Gap (12-20) BUN (9-16) mg/dL Creatinine (0.5-1.4) mg/dL Estim Creat Clear Calc Estimated GFR Random Glucose (60-115) mg/dL Lactic Acid (0.5-2.0) mmol/L Lactic Acid F/U @ 2Hr 3.0 H* (0.5-2.0) mmol/L Lactic Acid F/U @ 4Hr 2.1 H* (0.5-2.0) mmol/L Calcium (8.4-10.2) mg/dL Magnesium (1.6-2.6) mg/dL Total Bilirubin (0.0-1.0) mg/dL AST (5-31) U/L ALT (0-31) U/L Alkaline Phosphatase (39-117) U/L Troponin I High Sens (<3.5-17.0) ng/L B-Natriuretic Peptide (<100) pg/mL Total Protein (6.5-8.0) g/dL Albumin (3.5-5.0) g/dL Lipase (8-78) U/L Influenza Type A (PCR) (Negative) Influenza Type B (PCR) (Negative) RSV RNA Qual (PCR) (Negative) SARS-CoV-2 RNA (RT-PCR) (Negative) Independent Interpretation I performed an independent interpretation of an: EKG and Plain X-Ray Interpretation: My independent interpretation patient's one-view chest x-ray is as follows: Increased interstitial markings, cardiomegaly My independent interpretation patient's 12 EKG done at 22:00 hours is as follows: Normal sinus rhythm with a rate of 90, normal MI interval, QRS duration QTC interval, no ST segment elevation, no ST segment depression, no significant T-wave abnormalities, no PACs. Compared to EKG dated 04/18/2024 there are no clinically significant changes. Radiology Impression Discussion of test interpretation with radiology: I have reviewed the radiologist's reading. Radiologist Impression: 1 view chest x-ray Comparison: CR/SR - XR CHEST 1V - 04/18/24 21:18 EDT Findings: Increased interstitial lung markings throughout both lungs, present on multiple priors with a slightly subpleural predominance, suggestive of fibrotic interstitial lung disease. Moderate cardiomegaly. No effusion or pneumothorax. No acute fracture. IMPRESSION: 1. No acute findings. 2. Fibrotic interstitial lung disease. This document has been electronically signed by: Ovidio Noe MD on 07/23/2024 23:41:22 Dictated By: Ovidio Noe MD Independent Historian Clinical information obtained from an independent historian. History obtained from or confirmed by: Other ( SonSergio) External Record Review External record reviewed: Inpatient record Chronic Conditions Patient?s care impacted by: Diabetes and Other ( interstitial pulmonary fibrosis) Critical Care Time Critical Care Time Critical Care Time: Yes Total Critical Care Time: 80 Attestation: Critical Care: The patient was critically ill with a high probability of imminent or life threatening deterioration. I spent greater than 30 minutes of discontinuous time evaluating the patient,delivering critical care at the bedside, discussing and evaluating pertinent data with consultants. Critical care time does not include time spent performing separately billable procedures or teaching. Total time spent performing critical care was 80 minutes. Discharge Plan Discharge Clinical Impression: Hypoxia CHF (congestive heart failure) Qualifiers: Heart failure type: unspecified Heart failure chronicity: chronic Qualified Code(s): I50.9 - Heart failure, unspecified Patient Disposition: Home, Self-Care Instructions: Heart Failure (ED) Additional Instructions: Your presentation and laboratory evaluation is consistent with pulmonary edema/congestive heart failure You were treated with Lasix 20 mg IV and Lasix 40 mg IV and put out over a L of urine. At this time, I think it is okay to send you home. I want you to restrict the amount of fluid that you drink today and only drink if your thirsty. Continue taking your other medications as prescribed by your providers Make sure you where your 6 L of oxygen via nasal cannula continually today take it off. Follow-up with your doctor in 2 days. Please return to the emergency department if your symptoms get worse or if you develop any symptoms that are concerning to you. Prescriptions: No Action (DME) evencare G2 blood glucose moniter starter kit See Rx Instructions .Route .MEDSUPPLY Qty: 1 0RF Rx Instructions: As directed (DME) medline basic face mask See Rx Instructions .Route .MEDSUPPLY Qty: 1 11RF Rx Instructions: As directed (DME) Medline ext cuff nitrile glove sterile pairs (medium) See Rx Instructions .Route .MEDSUPPLY Qty: 1 11RF Rx Instructions: As directed (DME) Medline wall mount sharps container 3 galloon red See Rx Instructions .Route .MEDSUPPLY Qty: 1 3RF Rx Instructions: As directed (DME) O2 Gas System Home Transfill Unit ([id number]) See Rx Instructions .Route .MEDSUPPLY Qty: 1 0RF Rx Instructions: As directed (DME) Washable Incontinence Pads (Physical Sciences Instructor Pad) 0 .Route .MEDSUPPLY Qty: 60 12RF Rx Instructions: As directed (DME) BEDSIDE COMMODE See Rx Instructions .Route .MEDSUPPLY Qty: 1 0RF Rx Instructions: As directed (DME) WIPES See Rx Instructions .Route .MEDSUPPLY Qty: 2 11RF Rx Instructions: As directed (DME) incontinence pad, liner, disp Pad See Rx Instructions .Route Qty: 180 12RF Rx Instructions: As directed (DME) MEDIUM PULL UPS See Rx Instructions .Route .MEDSUPPLY Qty: 90 11RF Rx Instructions: As directed (DME) bedside commode Kit See Rx Instructions .Route Qty: 1 0RF Rx Instructions: As directed (DME) GERMICIDAL DISPOSABLE WIPES See Rx Instructions .Route .MEDSUPPLY Qty: 2 12RF Rx Instructions: As directed (DME) HOSPITAL BED See Rx Instructions .Route .MEDSUPPLY Qty: 1 0RF Rx Instructions: As directed (DME) Mattress for hospital bed 0 .Route .MEDSUPPLY Qty: 1 0RF Rx Instructions: As directed (DME) medline alcohol prep pads 1.75x3 See Rx Instructions .Route .MEDSUPPLY Qty: 1 12RF Rx Instructions: As directed (DME) medlinecontour plus bladder control pads See Rx Instructions .Route .MEDSUPPLY Qty: 90 12RF Rx Instructions: As directed (DME) Semi- Electric Hospital Bed with Mattress and Rails See Rx Instructions .Route .MEDSUPPLY Qty: 1 0RF Rx Instructions: As directed (DME) ULTRA THIN PADS See Rx Instructions .Route .MEDSUPPLY Qty: 30 12RF Rx Instructions: As directed (DME) ULTRASORB UNDER PADS See Rx Instructions .Route .MEDSUPPLY Qty: 1 11RF Rx Instructions: As directed metformin 750 mg tablet extended release 24 hr 750 mg PO BID 90 Days Qty: 180 3RF gabapentin 300 mg capsule 300 mg PO BEDTIME 90 Days Qty: 90 3RF aspirin [Adult Aspirin Regimen] 81 mg tablet,delayed release (DR/EC) 81 mg PO DAILY 90 Days Qty: 90 3RF atorvastatin 40 mg tablet 40 mg PO BEDTIME Qty: 90 3RF cholecalciferol (vitamin D3) 50 mcg (2,000 unit) capsule 50 mcg PO DAILY 90 Days Qty: 90 3RF glipizide 5 mg tablet 5 mg PO DAILY ferrous sulfate [FeroSul] 325 mg (65 mg iron) tablet 325 mg PO DAILY Qty: 90 3RF (DME) pen needle, diabetic [BD Ultra-Fine Micro Pen Needle] 32 gauge x 1/4 needle See Rx Instructions .Route Qty: 100 0RF Rx Instructions: As directed inject insulin one a day azithromycin [Zithromax] 250 mg tablet See Rx Instructions PO .COMPLEX Qty: 6 0RF Rx Instructions: For 250 mg dose pack: take 500 mg today (day 1), then 250 mg for 4 days (days 2-5) PO (DME) RECLINER See Rx Instructions .Route .MEDSUPPLY Qty: 1 0RF Rx Instructions: As directed (DME) hand held shower wand See Rx Instructions .Route .MEDSUPPLY Qty: 1 0RF Rx Instructions: As directed (DME) 10 wedge cushion See Rx Instructions .Route .MEDSUPPLY Qty: 1 0RF Rx Instructions: As directed (DME) miscellaneous medical supply Misc See Rx Instructions .Route Qty: 1 0RF Rx Instructions: As directed fluticasone propionate [Flonase Allergy Relief] 50 mcg/actuation spray,suspension 2 spray intranasal DAILY Qty: 16 11RF Rx Instructions: administer into each nostril tramadol 50 mg tablet 50 mg PO BEDTIME Qty: 30 0RF acetaminophen 500 mg tablet 1,000 mg PO TID PRN (Reason: Pain) Qty: 90 0RF furosemide [Lasix] 40 mg tablet 40 mg PO DAILY Qty: 90 0RF duloxetine 60 mg capsule,delayed release(DR/EC) 60 mg PO DAILY 90 Days Qty: 90 0RF magnesium oxide 400 mg (241.3 mg magnesium) tablet 400 mg PO .QD Qty: 30 0RF tamsulosin 0.4 mg capsule 0.4 mg PO BEDTIME loratadine 10 mg tablet 10 mg PO DAILY insulin glargine [Lantus Solostar U-100 Insulin] 100 unit/mL (3 mL) insulin pen 20 unit subcut DAILY@1300 (DME) Oxygen Home Use Kit See Rx Instructions .Route Rx Instructions: As directed losartan 25 mg tablet 25 mg PO DAILY Qty: 30 3RF (DME) recliner See Rx Instructions .Route .MEDSUPPLY Qty: 1 0RF Rx Instructions: As directed (DME) BEDSIDE COMMODE See Rx Instructions .Route .MEDSUPPLY Qty: 1 0RF Rx Instructions: As directed benzonatate 200 mg capsule 200 mg PO BID-TID PRN (Reason: cough) Qty: 14 0RF mycophenolate mofetil 500 mg tablet 1,000 mg PO BID 30 Days Qty: 120 6RF Saline Nasal 0.65 % aerosol,spray 2 spray intranasal Q2H PRN (Reason: dry nasal passages) 14 Days Qty: 44 11RF Rx Instructions: while awake [place] Saline Gel 1 appl topical TID PRN (Reason: dry nasal passages) 30 Days Qty: 14.1 6RF Biotene Dry Mouth Oral Rinse Mouthwash 15 ml mucous membrane BID-QID PRN (Reason: dry mouth) Qty: 473 0RF Rx Instructions: swish for 15-30 secs , then spit out; do not swallow Interventions: ED Discharge Assessment Last Done: 07/24/24 08:21 Discharge Date/Time: 07/24/24 08:22 Print Language: Slovenian
[2024-07-23 22:21] VITALS: RESP 37; O2SAT 90
[2024-07-23 22:24] LABS: VBG Base Excess 9.1 mmol/L; VBG HCO3 33 mmol/L (22-26); VBG pCO2 44 mmHg; VBG pH 7.48 (7.32-7.43); VBG pO2 36 mmHg
[2024-07-23 22:26] LABS: Venous Blood Gas Refer to POC result
--- NOTE | 2024-07-23 22:30 | PC.NURSE ---
pt placed on BiPAP by RT.
--- NOTE | 2024-07-23 22:30 | PC.NURSE ---
pt placed on CPAP by RT.
[2024-07-23 22:33] LABS: Basophils Absolute Auto 0.1 X10*3/uL (0.0-0.2); Eosinophils Percent Auto 7.5 % (0-4); Hematocrit 31.2 % (37.0-47.0); Hemoglobin 9.7 g/dl (12.0-16.0); Imm Gran Abs Auto 0.04 X10*3/uL (0.00-0.03); Imm Gran Pct Auto 0.3 % (0.0-0.4); Lymphocytes Absolute Auto 2.2 X10*3/uL (1.2-4.9); Lymphocytes Percent Auto 17.6 % (20-40); Mean Corpuscular HGB Conc 31.1 g/dl (31.0-35.0); Mean Corpuscular Hemoglobin 26.8 pg (27.0-33.0); Mean Corpuscular Volume 86.2 fL (80.0-98.0); Mean Platelet Volume 9.1 fL (9.4-12.3); Monocytes Absolute Auto 0.9 X10*3/uL (0.1-1.2); Monocytes Percent Auto 6.8 % (2-11); Neutrophils Absolute Auto 8.5 x10*3/uL (2.0-8.3); Neutrophils Percent Auto 66.8 % (45-73); Platelet Count 937 X10*3/uL (160-400); Red Blood Count 3.62 X10*6/uL (4.20-5.50); Red Cell Distribution Width 17.1 % (11.0-16.0); White Blood Count 12.7 X10*3/uL (4.8-10.8)
[2024-07-23 22:36] VITALS: PULSE 88; RESP 28; O2SAT 96
[2024-07-23 22:41] LABS: B Type Natriuretic Peptide 1095 pg/mL (<100)
--- NOTE | 2024-07-23 22:43 | PC.NURSE ---
Addendum entered by Aliza Carreon 07/24/24 00:31: biPAP* Original Note: pt arrives via EMS reporting shortness of breath x 45 mins. per ems family noted patient to be hypoxic with little movement, down to 82% on her home 2L O2. Pt arrives diaphoretic, clammy, cool to touch. She was 79% on 4L NC. RT and MD called to bedside. pt placed on oxymask 15L with some relief, up to 89%. RT then placed pt on CPAP. lung sound crackles. Hx CHF and COPD. #20g iv line placed in RFA. labs collected and sent, ekg done, chest XR ordered. PCT in room obtaining blood cultures and lactic acid now. plan of care ongoing.
[2024-07-23 22:44] LABS: Alanine Aminotransferase 7 U/L (0-31); Albumin Level 3.7 g/dL (3.5-5.0); Alkaline Phosphatase 83 U/L (39-117); Anion Gap 20 (12-20); Aspartate Amino Transferase 25 U/L (5-31); Bilirubin Total 0.6 mg/dL (0.0-1.0); Blood Urea Nitrogen 13 mg/dL (9-16); Calcium 9.2 mg/dL (8.4-10.2); Carbon Dioxide 27 mmol/L (22-29); Chloride 98 mmol/L (96-108); Creatinine Clr Calc Pharmacy 39.9; Estimated Glomerular Filt Rate > 60; Glucose Random 181 mg/dL (60-115); Lipase 22 U/L (8-78); Magnesium 1.3 mg/dL (1.6-2.6); Potassium 3.3 mmol/L (3.3-5.1); Sodium 142 mmol/L (135-145); Troponin-I High Sensitivity 13.3 ng/L (<3.5-17.0)
[2024-07-23 22:47] LABS: INTERNATIONAL NORM RATIO 1.2 (0.9-1.1); Prothrombin Time 13.7 SEC (10.9-12.4)
[2024-07-23 23:36] VITALS: BP 89/56; PULSE 94; RESP 30; TEMP 36.8; O2SAT 99
--- NOTE | 2024-07-23 23:38 | MHC.EDTECH ---
This tech took over care of pt at 2300,rounded and introduced self to pt,vitals taken,bp is low, 89/56,rectal temp taken 97.8, RN aware at bedside,pt changed into hospital attire,family at bedside,call pierre in reach
[2024-07-23 23:39] LABS: Lactic Acid 5.1 mmol/L (0.5-2.0)
[2024-07-23 23:44] VITALS: BP 106/61; PULSE 92; RESP 30; O2SAT 99
[2024-07-23 23:58] LABS: Influenza A PCR NEGATIVE (Negative); Influenza B PCR NEGATIVE (Negative); Resp Syncy Virus RNA Qual PCR NEGATIVE (Negative); SARS COV2 PCR INHOUSE NEGATIVE (Negative)
[2024-07-24] VITALS (8 sets, daily range): BP systolic 102–112; BP diastolic 56–69; PULSE 81–90; RESP 16–28; TEMP 36.7–36.8; O2SAT 95–97
[2024-07-24] MEDS: Furosemide 20 MG/2 ML VIAL IVPUSH (00:52)
[2024-07-24 01:15] LABS: Reflex Lactate? Lactic Acid Added
[2024-07-24] MEDS: Furosemide 40 MG/4 ML VIAL IVPUSH (02:29)
--- NOTE | 2024-07-24 02:31 | PC.NURSE ---
attempted to trial pt off of bipap however RR still high 30s so will try again later. no urine output s/p 20mg lasix administration. MD ordered another 40mg . aware of soft BPs. plan of care continues.
[2024-07-24 03:50] LABS: Reflex Lactate? 2 Y
--- NOTE | 2024-07-24 04:44 | PC.NURSE ---
still n urine output after 60mg lasix administered. This RN bladder scanned pt and fuond > 817 ml in bladder. MD Bauman aware. verbal order for buckley catheter placement. 16fr buckley placed w/o issue. 600cc put out right away pt tolerated well
[2024-07-24 04:55] LABS: ~Lactic Acid-LAB USE ONLY 2.1 mmol/L (0.5-2.0)
--- NOTE | 2024-07-24 06:06 | MHC.EDTECH ---
Emptied 1100MLS of yellow urine from [facility]
--- NOTE | 2024-07-24 06:15 | PC.NURSE ---
pt put out 1100 cc urine in catheter. pt respirations down to 18. pt taken off bipap per MD benoit request. placed on her baseline 6L NC. O2 94%. RR 15-19.
--- NOTE | 2024-07-24 06:54 | PC.NURSE ---
per MD benoit patient is better and breathing in no distress on her own home baseline O2. 1100 cc urine put out in buckley, OK to remove catheter prior to discharge
== END 2024-07-24 08:22 | disposition home or self-care (01) ==
PROVIDERS: Emergency Provider Emergency Medicine Emergency Medical Services
DX: I50.9 Heart failure, unspecified (principal); R06.02 Shortness of breath; R09.02 Hypoxemia; R94.31 Abnormal electrocardiogram [ECG] [EKG]; E11.9 Type 2 diabetes mellitus without complications; Z79.4 Long term (current) use of insulin; Z03.818 Encounter for observation for suspected exposure to other biological agents ruled out; Z79.899 Other long term (current) drug therapy
CPT/HCPCS: 0241U; 36415; 71045; 80053; 82803; 83605; 83690; 83735; 83880; 84484; 85025; 85610; 87040; 93005; 96374; 96376; 99285; J1940

== ENCOUNTER → 2024-07-23 23:18 | Outpatient (BNV) | payer OTHER, SELFPAY | PROVIDERS: Emergency Provider Emergency Medicine Emergency Medical Services; Visit Provider Radiology Diagnostic Radiology | DX: R06.09 Other forms of dyspnea (principal); R09.02 Hypoxemia | CPT/HCPCS: 71045 ==

== ENCOUNTER 2024-08-12 13:14 | Inpatient (IN) | payer OTHER, SELFPAY ==
[2024-08-12] VITALS (12 sets, daily range): BP systolic 106–126; BP diastolic 56–88; PULSE 83–97; RESP 18–30; TEMP 36.8–37.2; O2SAT 90–100; BMI 19.3
--- NOTE | 2024-08-12 | ECG_ITS ---
Test Reason : CP Blood Pressure : */* mmHG Vent. Rate : 89 BPM Atrial Rate : 89 BPM P-R Int : 130 ms QRS Dur : 80 ms QT Int : 400 ms P-R-T Axes : 53 -27 -12 degrees QTcB Int : 486 ms Normal sinus rhythm with sinus arrhythmia Low voltage QRS Nonspecific ST and T wave abnormality Abnormal ECG When compared with ECG of 23-Jul-2024 22:00, Nonspecific T wave abnormality, improved in Lateral leads Referred By: Zachary Echeverria Electronically Signed By: MANUEL JOINER
--- NOTE | ~2024-08-12 | XR_ITS ---
EXAMINATION: XR CHEST 1 VIEW HISTORY: Hypoxia, cough COMPARISON: Comparison is made with the prior examination dated 08/12/2024. FINDINGS: A single AP portable view of the chest performed at 9:46 AM is submitted. Again seen are increased interstitial markings bilaterally consistent with fibrosis. There is new airspace opacity in the left lower lung zone, consistent with pneumonia. There is no pleural effusion, pneumothorax, or pulmonary vascular congestion. The heart is enlarged. The aorta is calcified. There is degenerative disc disease of the spine. XR/XR chest 1V IMPRESSION: Cardiomegaly and pulmonary fibrosis. Airspace opacity at the left lung base, consistent with pneumonia. Follow-up is recommended to document resolution. Electronically signed by: Farzad Stanley MD 08/15/2024 10:10 AM [facility]
--- NOTE | ~2024-08-12 | XR_ITS ---
CLINICAL HISTORY: pneumonia 1 view chest x-ray. Comparison: 08/17/2024 Findings: Normal lung volumes. Stable diffuse reticular fibrosis. No definite superimposed alveolitis. Cardiomegaly. Unfolding of the thoracic aorta stable. Stable mild tracheal deviation to the right. No acute fracture. Calcific tendinopathy right rotator cuff. Impression: 1. Reticular fibrosis stable. Stable cardiomegaly. No definite evidence of superimposed active alveolitis. This document has been electronically signed by: Luis Henry MD on 08/19/2024 11:15:04
--- NOTE | ~2024-08-12 | XR_ITS ---
CLINICAL HISTORY: SBO 1 view chest x-ray Comparison: CR - XR CHEST 1V - 07/23/24 23:18 EST Findings: Coarsening of interstitial markings within the bilateral lungs, similar to the prior study. No consolidation. Heart is enlarged, without significant change. Soft tissue fullness within the right hilum and right paratracheal region with apparent increase. No acute fracture. IMPRESSION: 1. Soft tissue fullness within the right hilum and right paratracheal region with apparent increase. Recommend further evaluation with contrast-enhanced chest CT to exclude a mass or lymphadenopathy. 2. There are changes of pulmonary fibrosis. An underlying interstitial infiltrate is not excluded. This document has been electronically signed by: Dannielle Wallace MD on 08/12/2024 14:41:43
--- NOTE | ~2024-08-12 | CT_ITS ---
CLINICAL HISTORY: Eval Right hilar mass , Hypoxia CT chest with contrast. Comparison: CR - XR CHEST 1V - 08/12/24 13:38 EST CR - XR CHEST 1V - 07/23/24 23:18 EST Findings: The heart is markedly enlarged. Prominence of the main pulmonary artery which can be seen with pulmonary hypertension. Mild aortic annular and coronary artery calcifications. Pericardial effusion. Fluid is present within the pericardial recesses. This limits evaluation for hilar and mediastinal lymphadenopathy as well as does respiratory motion artifact. Bilateral subpleural reticulation and cystic change compatible with honeycombing. Bibasilar predominant cylindrical bronchiectasis. Bilateral patchy airspace and ground-glass densities. No evidence of pulmonary mass or pleural effusion. Hepatic dome calcifications versus perfusion anomaly. No other hepatic mass. The gallbladder rod are thickened without evidence of cystic duct obstruction or cholelithiasis. This is likely related to a hypervolemic state rather than acute cholecystitis. Mild degenerative change of the spine. IMPRESSION: 1. No definite right hilar mass. Right hilar prominence on the recent chest x-ray is likely related to a pericardial effusion with fluid in the pericardial recesses and prominent pulmonary vascular structures. Evaluation for lymphadenopathy is limited due to the pericardial recess fluid and respiratory motion artifact. Follow-up chest CT could be performed following resolution of symptoms to assess for residual lymphadenopathy. 2. Findings suggestive of interstitial lung disease such as usual interstitial pneumonia. Small bilateral foci of airspace disease which may represent scarring or infection. This document has been electronically signed by: Jonh Benoit DO on 08/13/2024 09:23:18
--- NOTE | ~2024-08-12 | XR_ITS ---
EXAMINATION: XR CHEST 1 VIEW HISTORY: Aspiration COMPARISON: Comparison is made with the prior examination dated 08/15/2024. FINDINGS: A single AP portable view of the chest performed at 8:44 AM is submitted. Again seen are diffuse increased interstitial markings throughout both lungs, consistent with fibrosis. There has been improved aeration of the left lung base since the prior study. There is no pleural effusion, pneumothorax, or pulmonary vascular congestion. The heart is normal in size. There is degenerative disc disease of the spine. XR/XR chest 1V IMPRESSION: Pulmonary fibrosis. Improved aeration of the left lung base. Electronically signed by: Farzad Stanley MD 08/17/2024 09:17 AM [facility]
--- NOTE | ~2024-08-12 | XR_ITS ---
CLINICAL HISTORY: hypoxia 1 view chest x-ray Comparison: 08/19/2024, 10:38 a. M. Findings: Portions of the chest are obscured by overlying material. The overall appearance of the chest including diffuse consolidation, is not significantly changed. IMPRESSION: 1. No significant change from earlier exam. This document has been electronically signed by: Tonny Tesfaye MD on 08/19/2024 20:30:24
--- NOTE | 2024-08-12 13:35 | ED_ITS ---
HPI - SOB/Dyspnea General Chief Complaint: Dyspnea Stated Complaint: SOB, 80% RA, 98% ON O2, H/O COPD PER EMS Time Seen by Provider: 08/12/24 13:18 Source: patient, EMS, old records reviewed and roller Mode of arrival: EMS Limitations: no limitations History of Present Illness ED Provider: DR. 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 found to be hypoxic even with using supplemental oxygen. Reportedly by EMS patient is at 88% with supplemental oxygen patient was placed on non-rebreather by EMS during transportation her O2 sat went up to 100%. Related Data Home Medications ?Medication ?Instructions ?Recorded ?Confirmed Oxygen Home Use 10/23/22 03/16/24 tamsulosin 0.4 mg capsule 0.4 mg PO BEDTIME 02/24/24 04/19/24 insulin glargine 100 unit/mL (3 20 unit subcut DAILY@1300 03/09/24 04/19/24 mL) subcutaneous pen (Lantus Solostar U-100 Insulin) glipizide 5 mg tablet 5 mg PO DAILY 05/08/24 Previous Rx's ?Medication ?Instructions ?Recorded [facility] G2 blood glucose moniter #1 ea 10/02/21 starter kit Medline ext cuff nitrile glove #1 ea 12/03/21 sterile pairs (medium) Medline wall mount sharps #1 ea 12/03/21 container 3 galloon red medline basic face mask #1 ea 12/03/21 O2 Gas System Home Transfill Unit #1 ea 11/23/22 ([id number]) Washable Incontinence Pads (Drying Room Supervisor #60 ea 07/09/23 Pad) BEDSIDE COMMODE #1 ea 10/26/23 WIPES #2 ea 10/26/23 incontinence pad, liner, disp #180 ea 12/09/23 GERMICIDAL DISPOSABLE WIPES #2 ea 01/06/24 HOSPITAL BED #1 ea 01/06/24 MEDIUM PULL UPS #90 ea 01/06/24 Mattress for hospital bed #1 ea 01/06/24 Semi- Electric Hospital Bed with #1 ea 01/06/24 Mattress and Rails ULTRA THIN PADS #30 ea 01/06/24 ULTRASORB UNDER PADS #1 ea 01/06/24 commode (bedside commode) #1 ea 01/06/24 medline alcohol prep pads 1.75x3 #1 ea 01/06/24 medlinecontour plus bladder #90 ea 01/06/24 control pads saliva substitute combo no.9 15 ml mucous membrane BID-QID PRN 03/17/24 (Biotene Dry Mouth Oral Rinse dry mouth #473 mL mouthwash) aspirin 81 mg tablet,delayed 81 mg PO DAILY 90 days #90 tabs 04/28/24 release (Adult Aspirin Regimen) cholecalciferol (vitamin D3) 50 50 mcg PO DAILY 90 days #90 caps 04/28/24 mcg (2,000 unit) capsule gabapentin 300 mg capsule 300 mg PO BEDTIME 90 days #90 caps 04/28/24 metformin 750 mg tablet,extended 750 mg PO BID 90 days #180 tabs 04/28/24 release 24 hr BEDSIDE COMMODE #1 05/02/24 benzonatate 200 mg capsule 200 mg PO BID-TID PRN cough #14 05/02/24 caps losartan 25 mg tablet 25 mg PO DAILY #30 tabs 05/02/24 recliner #1 05/02/24 mycophenolate mofetil 500 mg tablet 1,000 mg (2 x 500 mg) PO BID 30 05/08/24 days #120 tabs sodium chloride 0.65 % nasal spray 2 spray intranasal Q2H PRN dry 05/08/24 aerosol (Saline Nasal) nasal passages 14 days #44 mL sodium chloride-aloe vera nasal 1 appl topical TID PRN dry nasal 05/08/24 gel ([place] Saline nasal gel) passages 30 days #14.1 grams ferrous sulfate 325 mg (65 mg 325 mg PO DAILY #90 tabs 06/06/24 iron) tablet (FeroSul) pen needle, diabetic 32 gauge x #100 ea 06/22/2406/24 (BD Ultra-Fine Micro Pen Needle) azithromycin 250 mg tablet See Rx Instructions PO .COMPLEX #6 06/23/24 (Zithromax) tabs 10 wedge cushion #1 ea 06/30/24 hand held shower wand #1 ea 06/30/24 miscellaneous medical supply #1 ea 06/30/24 acetaminophen 500 mg tablet 1,000 mg (2 x 500 mg) PO TID PRN 07/10/24 Pain #90 tabs duloxetine 60 mg capsule,delayed 60 mg PO DAILY 90 days #90 caps 07/21/24 release furosemide 40 mg tablet (Lasix) 40 mg PO DAILY #90 tabs 07/21/24 magnesium oxide 400 mg (241.3 mg 400 mg PO .QD #30 tabs 07/21/24 magnesium) tablet RECLINER #1 ea 07/26/24 mometasone 50 mcg/actuation nasal 2 spray intranasal DAILY PRN nasal 08/04/24 spray (Nasonex 24hr Allergy) congestion #17 grams tramadol 50 mg tablet 50 mg PO BID PRN pain #60 tabs 08/07/24 Allergies Allergy/AdvReac Type Severity Reaction Status Date / Time No Known Allergies Allergy Verified 08/12/24 13:24 Review of Systems 2 Review of Systems: All other systems are reviewed and are negative Constitutional: Reports as per HPI and Reports no additional constitutional complaints Eyes: Reports as per HPI and Reports no additional eye complaints Reports system reviewed and no additional complaints, except as documented Cardiovascular: Reports as per HPI and Reports no additional cardiovascular complaints Respiratory: Reports as per HPI and Reports no additional respiratory complaints Gastrointestinal: Reports as per HPI and Reports no additional gastrointestinal complaints Genitourinary: Reports no additional female genitourinary complaints Musculoskeletal: Reports no additional musculoskeletal complaints Skin/Breast: Reports system reviewed and no additional complaints, except as docu Psychiatric: Reports no additional psychiatric complaints Endocrine: Reports no additional endocrine complaints Hematologic/Lymphatic: Reports no additional hematologic/lymphatic complaints Allergic/Immunologic: Reports no additional allergic/immunologic complaints Reports system reviewed and no additional complaints, except as documented and Reports Abnormal speech present [facility] Past Medical History Medical History Chest pain Pulmonary hypertension Hip pain, left Bilateral hip pain Respiratory tract infection Interstitial lung disease Viral pneumonia Pneumonitis Right lower quadrant abdominal pain UTI (urinary tract infection) Mass on back H/O thrombocytosis COPD with acute exacerbation Pneumonia Weakness Constipation Opacities of both lungs present on chest x-ray Elevated WBC count Viral syndrome Asthma-COPD overlap syndrome Chronic respiratory failure Acute and chronic respiratory failure Generalized anxiety disorder Urinary incontinence CVA (cerebral vascular accident) Osteopenia Lumbar spinal stenosis Interstitial pulmonary fibrosis Insomnia Cystocele Hypertension Hypercholesterolemia Type 2 diabetes mellitus with hyperglycemia Surgical History Hx of section Family History Family History Mother No problems noted. Social History Social History Household Members: Significant Other Housing: House Do you presently have visiting nurse or other home services: No Alcohol intake: never Patient Tobacco Use Status: Never used Tobacco Tobacco use type: Cigarette Smoked in Last 30 Days: No e-Cigarette/Vaping Use: Never Used Second Hand Smoke Exposure: No Use of substances other than those prescribed or required for medical reasons: No Advance Directives: Yes Advance Directives on File: Yes Advance Directives Date on File: 10/15/23 service: No Current occupational status: retired Cognitive needs: Yes ([employer] at home) Hearing needs: No Vision needs: Yes Physical Exam 2 Vital Signs: Vital Signs: Last Vital Signs Temp 98.4 F 08/12/24 13:34 Pulse 91 08/12/24 14:29 Resp 20 08/12/24 14:29 BP 116/65 08/12/24 13:34 Pulse Ox 96 08/12/24 13:56 O2 Del Method Oxymask 08/12/24 13:56 O2 Flow Rate 5 08/12/24 13:56 BMI result Body Mass Index 19.3 Vital signs have been reviewed and appear to be correct. Blood pressure elevated. Heart rate normal. Respiratory rate normal. Temperature normal. Oxygen saturation normal. Appearance: Alert. Oriented X3. No acute distress. Head: Normal external exam. Normocephalic. Atraumatic. No Kraft signs noted. No raccoon eyes noted Eyes: PERRLA. EOMI. Conjunctiva and sclera normal. Eyelids normal. ENT: TM's Normal. Pharynx normal. Uvula midline. Moist mucous membranes. No trismus noted. No drooling noted. No muffled voice noted. Neck: Normal inspection. Neck supple. FROM. No adenopathy. Thyroid Normal. No meningeal signs. No neck mass noted. CVS: Normal heart rate and rhythm. Heart sound normal. No murmurs noted. Pulses normal throughout. Respiratory: No respiratory distress. Painless inspiration. Breath sounds decreased bilaterally. Bilateral prolonged expiratory phase, with diffuse mild expiratory wheezing. Chest nontender. No accessory muscle usage noted or decreased air movement noted. Abdomen: Soft and nontender. Bowel sounds normal in all 4 quadrants. No distention noted. No organomegaly noted. No visible injury noted. Back: No CVA tenderness. Full range of motion noted. Skin: Skin warm and dry. Normal skin color. Normal skin turgor. No rashes/lesions/lacerations noted. Extremities: No lower extremity edema. Extremities exhibit normal range of motion. Extremities nontender. Neuro: Oriented X 3. Cranial nerve exam: II-XII are grossly intact No motor deficit. No sensory deficit. Reflexes normal. Course Reevaluation(s) Reevaluation #1: 83-year-old female history of interstitial lung fibrosis and COPD using chronic supplemental oxygen at home found to have shortness of breath, chest pain x1 day, and found to be hypoxic. EKG reveals no ST elevation case discussed with Dr. Alaniz who recommended to start the patient on Lovenox and aspirin. Patient also will be treated for COPD/interstitial fibrosis will be given Solu- Medrol/magnesium/bronchodilator. Admit for further evaluation. Time: 15:08 Medications Administered Generic Name Dose Route Start Last Admin Trade Name Freq PRN Reason Stop Dose Admin Magnesium Sulfate 2 gm in 50 mls @ 25 mls/hr 08/12/24 13:46 08/12/24 14:24 Magnesium Sulfate/H2o IV 08/12/24 15:45 25 mls/hr ONCE ONE Administration Discontinued Medications Generic Name Dose Route Start Last Admin Trade Name Freq PRN Reason Stop Dose Admin Ceftriaxone Sodium 1 gm 08/12/24 13:34 08/12/24 14:27 Ceftriaxone Sodium 1 Gm Vial IVPUSH 08/12/24 13:35 1 gm ONCE ONE Administration Albuterol Sulfate 5 mg/ 0 mg 08/12/24 14:21 08/12/24 14:28 Albuterol/Ipratropium 3 ml INHALE 08/12/24 14:22 7.5 each ONCE ONE Administration Methylprednisolone Sodium Succinate 125 mg 08/12/24 13:46 08/12/24 14:24 Methylprednisolone Sod Succ 125 Mg/2 Ml Vial IVPUSH 08/12/24 13:47 125 mg ONCE ONE Administration Medical Decision Making Differential Diagnosis Differential Diagnoses: The differential diagnosis associated with the presentation includes (ACS, pneumonia, pneumothorax, pleural effusion, COPD exacerbation, interstitial lung fibrosis, electrolyte derangement, severe anemia, influenza, COVID infection, RSV infection.) Admission/Observation Consideration of admission/observation: Escalation of care including admission/observation considered Consult Healthcare Provider Management of the patient was discussed with: Hospitalist (Dr. Nuñez) and Academic Affairs Director (Dr. Alaniz) Lab Data MDM Lab Attestation statement: I reviewed the patient's lab results. 08/12/24 13:50 08/12/24 13:50 Labs: Lab Results 08/12/24 08/12/24 08/12/24 Range/Units 13:40 13:49 13:50 WBC 7.9 (4.8-10.8) X10*3/uL RBC 3.73 L (4.20-5.50) X10*6/uL Hgb 9.9 L (12.0-16.0) g/dl Hct 32.7 L (37.0-47.0) % MCV 87.7 (80.0-98.0) fL MCH 26.5 L (27.0-33.0) pg MCHC 30.3 L (31.0-35.0) g/dl RDW 17.1 H (11.0-16.0) % Plt Count 847 H (160-400) X10*3/uL MPV 8.9 L (9.4-12.3) fL Immature Gran % (Auto) 0.3 (0.0-0.4) % Neut % (Auto) 77.0 H (45-73) % Lymph % (Auto) 13.6 L (20-40) % [place] % (Auto) 8.0 (2-11) % Eos % (Auto) 0.3 (0-4) % Baso % (Auto) 0.8 (0-2) % Lymph # (Auto) 1.1 L (1.2-4.9) X10*3/uL [place] # (Auto) 0.6 (0.1-1.2) X10*3/uL Eos # (Auto) 0.0 (0.0-0.4) X10*3/uL Baso # (Auto) 0.1 (0.0-0.2) X10*3/uL Abs Immat Gran (auto) 0.02 (0.00-0.03) X10*3/uL Absolute Neuts (auto) 6.1 (2.0-8.3) x10*3/uL Absolute Nucleated RBC 0.000 (0.0-0.012) X10*3/uL Nucleated RBC % (auto) 0.0 (0.0-0.2) /100WBC PT (10.9-12.4) SEC INR (0.9-1.1) VBG pH (7.32-7.43) VBG pCO2 mmHg VBG pO2 mmHg VBG HCO3 (22-26) mmol/L VBG O2 Saturation % VBG Base Excess mmol/L Sodium 141 (135-145) mmol/L Potassium 4.2 D (3.3-5.1) mmol/L Chloride 99 (96-108) mmol/L Carbon Dioxide 28 (22-29) mmol/L Anion Gap 18 (12-20) BUN 17 H (9-16) mg/dL Creatinine 0.71 (0.5-1.4) mg/dL Estim Creat Clear Calc 44.6 Estimated GFR > 60 Random Glucose 165 H (60-115) mg/dL Lactic Acid 3.1 H* (0.5-2.0) mmol/L Calcium 9.4 (8.4-10.2) mg/dL Total Bilirubin 1.2 H (0.0-1.0) mg/dL Direct Bilirubin 0.5 (0.0-0.5) mg/dL AST 167 H (5-31) U/L ALT 66 H (0-31) U/L Alkaline Phosphatase 204 H (39-117) U/L Troponin I High Sens 567.2 H* D (<3.5-17.0) ng/L B-Natriuretic Peptide 1641 H (<100) pg/mL Total Protein 8.4 H (6.5-8.0) g/dL Albumin 3.5 (3.5-5.0) g/dL Lipase 25 (8-78) U/L Influenza Type A (PCR) NEGATIVE (Negative) Influenza Type B (PCR) NEGATIVE (Negative) RSV RNA Qual (PCR) NEGATIVE (Negative) SARS-CoV-2 RNA (RT-PCR) NEGATIVE (Negative) 08/12/24 08/12/24 Range/Units 13:53 13:59 WBC (4.8-10.8) X10*3/uL RBC (4.20-5.50) X10*6/uL Hgb (12.0-16.0) g/dl Hct (37.0-47.0) % MCV (80.0-98.0) fL MCH (27.0-33.0) pg MCHC (31.0-35.0) g/dl RDW (11.0-16.0) % Plt Count (160-400) X10*3/uL MPV (9.4-12.3) fL Immature Gran % (Auto) (0.0-0.4) % Neut % (Auto) (45-73) % Lymph % (Auto) (20-40) % [place] % (Auto) (2-11) % Eos % (Auto) (0-4) % Baso % (Auto) (0-2) % Lymph # (Auto) (1.2-4.9) X10*3/uL [place] # (Auto) (0.1-1.2) X10*3/uL Eos # (Auto) (0.0-0.4) X10*3/uL Baso # (Auto) (0.0-0.2) X10*3/uL Abs Immat Gran (auto) (0.00-0.03) X10*3/uL Absolute Neuts (auto) (2.0-8.3) x10*3/uL Absolute Nucleated RBC (0.0-0.012) X10*3/uL Nucleated RBC % (auto) (0.0-0.2) /100WBC PT 21.6 H D (10.9-12.4) SEC INR 1.9 H (0.9-1.1) VBG pH 7.40 (7.32-7.43) VBG pCO2 59 mmHg VBG pO2 27 mmHg VBG HCO3 37 H (22-26) mmol/L VBG O2 Saturation < 30.0 % VBG Base Excess 10.3 mmol/L Sodium (135-145) mmol/L Potassium (3.3-5.1) mmol/L Chloride (96-108) mmol/L Carbon Dioxide (22-29) mmol/L Anion Gap (12-20) BUN (9-16) mg/dL Creatinine (0.5-1.4) mg/dL Estim Creat Clear Calc Estimated GFR Random Glucose (60-115) mg/dL Lactic Acid (0.5-2.0) mmol/L Calcium (8.4-10.2) mg/dL Total Bilirubin (0.0-1.0) mg/dL Direct Bilirubin (0.0-0.5) mg/dL AST (5-31) U/L ALT (0-31) U/L Alkaline Phosphatase (39-117) U/L Troponin I High Sens (<3.5-17.0) ng/L B-Natriuretic Peptide (<100) pg/mL Total Protein (6.5-8.0) g/dL Albumin (3.5-5.0) g/dL Lipase (8-78) U/L Influenza Type A (PCR) (Negative) Influenza Type B (PCR) (Negative) RSV RNA Qual (PCR) (Negative) SARS-CoV-2 RNA (RT-PCR) (Negative) Independent Interpretation I performed an independent interpretation of an: EKG (Normal sinus rhythm at 89 beats per minutes, normal intervals, nonspecific T-wave inversion.) and Plain X- Ray (Chest:1. Soft tissue fullness within the right hilum and right paratracheal region with apparent increase. Recommend further evaluation with contrast- enhanced chest CT to exclude a mass or lymphadenopathy. 2. There are changes of pulmonary fibrosis. An underlying interstitial infiltrate is not ex) Radiology Impression Discussion of test interpretation with radiology: I have reviewed the radiologist's reading. Discharge Plan Discharge Clinical Impression: Acute non-ST elevation myocardial infarction (NSTEMI), Acute on chronic hypoxic respiratory failure Patient Disposition: Admitted As Inpatient Prescriptions: No Action (DME) evencare G2 blood glucose moniter starter kit See Rx Instructions .Route .MEDSUPPLY Qty: 1 0RF Rx Instructions: As directed (DME) medline basic face mask See Rx Instructions .Route .MEDSUPPLY Qty: 1 11RF Rx Instructions: As directed (DME) Medline ext cuff nitrile glove sterile pairs (medium) See Rx Instructions .Route .MEDSUPPLY Qty: 1 11RF Rx Instructions: As directed (DME) Medline wall mount sharps container 3 galloon red See Rx Instructions .Route .MEDSUPPLY Qty: 1 3RF Rx Instructions: As directed (DME) O2 Gas System Home Transfill Unit ([id number]) See Rx Instructions .Route .MEDSUPPLY Qty: 1 0RF Rx Instructions: As directed (DME) Washable Incontinence Pads (Drying Room Supervisor Pad) 0 .Route .MEDSUPPLY Qty: 60 12RF Rx Instructions: As directed (DME) BEDSIDE COMMODE See Rx Instructions .Route .MEDSUPPLY Qty: 1 0RF Rx Instructions: As directed (DME) WIPES See Rx Instructions .Route .MEDSUPPLY Qty: 2 11RF Rx Instructions: As directed (DME) incontinence pad, liner, disp Pad See Rx Instructions .Route Qty: 180 12RF Rx Instructions: As directed (DME) MEDIUM PULL UPS See Rx Instructions .Route .MEDSUPPLY Qty: 90 11RF Rx Instructions: As directed (DME) bedside commode Kit See Rx Instructions .Route Qty: 1 0RF Rx Instructions: As directed (DME) GERMICIDAL DISPOSABLE WIPES See Rx Instructions .Route .MEDSUPPLY Qty: 2 12RF Rx Instructions: As directed (DME) HOSPITAL BED See Rx Instructions .Route .MEDSUPPLY Qty: 1 0RF Rx Instructions: As directed (DME) Mattress for hospital bed 0 .Route .MEDSUPPLY Qty: 1 0RF Rx Instructions: As directed (DME) medline alcohol prep pads 1.75x3 See Rx Instructions .Route .MEDSUPPLY Qty: 1 12RF Rx Instructions: As directed (DME) medlinecontour plus bladder control pads See Rx Instructions .Route .MEDSUPPLY Qty: 90 12RF Rx Instructions: As directed (DME) Semi- Electric Hospital Bed with Mattress and Rails See Rx Instructions .Route .MEDSUPPLY Qty: 1 0RF Rx Instructions: As directed (DME) ULTRA THIN PADS See Rx Instructions .Route .MEDSUPPLY Qty: 30 12RF Rx Instructions: As directed (DME) ULTRASORB UNDER PADS See Rx Instructions .Route .MEDSUPPLY Qty: 1 11RF Rx Instructions: As directed metformin 750 mg tablet extended release 24 hr 750 mg PO BID 90 Days Qty: 180 3RF gabapentin 300 mg capsule 300 mg PO BEDTIME 90 Days Qty: 90 3RF aspirin [Adult Aspirin Regimen] 81 mg tablet,delayed release (DR/EC) 81 mg PO DAILY 90 Days Qty: 90 3RF cholecalciferol (vitamin D3) 50 mcg (2,000 unit) capsule 50 mcg PO DAILY 90 Days Qty: 90 3RF glipizide 5 mg tablet 5 mg PO DAILY ferrous sulfate [FeroSul] 325 mg (65 mg iron) tablet 325 mg PO DAILY Qty: 90 3RF (DME) pen needle, diabetic [BD Ultra-Fine Micro Pen Needle] 32 gauge x 1/4 needle See Rx Instructions .Route Qty: 100 0RF Rx Instructions: As directed inject insulin one a day azithromycin [Zithromax] 250 mg tablet See Rx Instructions PO .COMPLEX Qty: 6 0RF Rx Instructions: For 250 mg dose pack: take 500 mg today (day 1), then 250 mg for 4 days (days 2-5) PO (DME) hand held shower wand See Rx Instructions .Route .MEDSUPPLY Qty: 1 0RF Rx Instructions: As directed (DME) 10 wedge cushion See Rx Instructions .Route .MEDSUPPLY Qty: 1 0RF Rx Instructions: As directed ([facility] [place]) miscellaneous medical supply Misc See Rx Instructions .Route Qty: 1 0RF Rx Instructions: As directed acetaminophen 500 mg tablet 1,000 mg PO TID PRN (Reason: Pain) Qty: 90 0RF furosemide [Lasix] 40 mg tablet 40 mg PO DAILY Qty: 90 0RF duloxetine 60 mg capsule,delayed release(DR/EC) 60 mg PO DAILY 90 Days Qty: 90 0RF magnesium oxide 400 mg (241.3 mg magnesium) tablet 400 mg PO .QD Qty: 30 0RF (DME) RECLINER See Rx Instructions .Route .MEDSUPPLY Qty: 1 0RF Rx Instructions: As directed mometasone [Nasonex 24hr Allergy] 50 mcg/actuation spray,non-aerosol 2 spray intranasal DAILY PRN (Reason: nasal congestion) Qty: 17 4RF Rx Instructions: administer into each nostril tramadol 50 mg tablet 50 mg PO BID PRN (Reason: pain) Qty: 60 0RF tamsulosin 0.4 mg capsule 0.4 mg PO BEDTIME insulin glargine [Lantus Solostar U-100 Insulin] 100 unit/mL (3 mL) insulin pen 20 unit subcut DAILY@1300 (DME) Oxygen Home Use Kit See Rx Instructions .Route Rx Instructions: As directed losartan 25 mg tablet 25 mg PO DAILY Qty: 30 3RF (DME) recliner See Rx Instructions .Route .MEDSUPPLY Qty: 1 0RF Rx Instructions: As directed ([facility] [place]) BEDSIDE COMMODE See Rx Instructions .Route .MEDSUPPLY Qty: 1 0RF Rx Instructions: As directed benzonatate 200 mg capsule 200 mg PO BID-TID PRN (Reason: cough) Qty: 14 0RF mycophenolate mofetil 500 mg tablet 1,000 mg PO BID 30 Days Qty: 120 6RF Saline Nasal 0.65 % aerosol,spray 2 spray intranasal Q2H PRN (Reason: dry nasal passages) 14 Days Qty: 44 11RF Rx Instructions: while awake [place] Saline Gel 1 appl topical TID PRN (Reason: dry nasal passages) 30 Days Qty: 14.1 6RF Biotene Dry Mouth Oral Rinse Mouthwash 15 ml mucous membrane BID-QID PRN (Reason: dry mouth) Qty: 473 0RF Rx Instructions: swish for 15-30 secs , then spit out; do not swallow Print Language: Frisian
[2024-08-12 13:58] LABS: MANUAL DIFF FLAG NO
[2024-08-12 14:00] LABS: Basophils Absolute Auto 0.1 X10*3/uL (0.0-0.2); Basophils Percent Auto 0.8 % (0-2); Eosinophils Percent Auto 0.3 % (0-4); Hematocrit 32.7 % (37.0-47.0); Hemoglobin 9.9 g/dl (12.0-16.0); Imm Gran Abs Auto 0.02 X10*3/uL (0.00-0.03); Imm Gran Pct Auto 0.3 % (0.0-0.4); Lymphocytes Absolute Auto 1.1 X10*3/uL (1.2-4.9); Lymphocytes Percent Auto 13.6 % (20-40); Mean Corpuscular HGB Conc 30.3 g/dl (31.0-35.0); Mean Corpuscular Hemoglobin 26.5 pg (27.0-33.0); Mean Corpuscular Volume 87.7 fL (80.0-98.0); Mean Platelet Volume 8.9 fL (9.4-12.3); Monocytes Absolute Auto 0.6 X10*3/uL (0.1-1.2); Neutrophils Absolute Auto 6.1 x10*3/uL (2.0-8.3); Platelet Count 847 X10*3/uL (160-400); Red Blood Count 3.73 X10*6/uL (4.20-5.50); Red Cell Distribution Width 17.1 % (11.0-16.0); White Blood Count 7.9 X10*3/uL (4.8-10.8)
[2024-08-12 14:03] LABS: VBG Base Excess 10.3 mmol/L; VBG HCO3 37 mmol/L (22-26); VBG O2 % Saturation < 30.0 %; VBG pCO2 59 mmHg; VBG pO2 27 mmHg
[2024-08-12 14:05] LABS: Venous Blood Gas Refer to POC result
[2024-08-12 14:09] LABS: INTERNATIONAL NORM RATIO 1.9 (0.9-1.1); Prothrombin Time 21.6 SEC (10.9-12.4)
[2024-08-12 14:16] LABS: Alanine Aminotransferase 66 U/L (0-31); Albumin Level 3.5 g/dL (3.5-5.0); Alkaline Phosphatase 204 U/L (39-117); Anion Gap 18 (12-20); Aspartate Amino Transferase 167 U/L (5-31); Bilirubin Direct 0.5 mg/dL (0.0-0.5); Bilirubin Total 1.2 mg/dL (0.0-1.0); Blood Urea Nitrogen 17 mg/dL (9-16); Calcium 9.4 mg/dL (8.4-10.2); Carbon Dioxide 28 mmol/L (22-29); Chloride 99 mmol/L (96-108); Creatinine Clr Calc Pharmacy 44.6; Estimated Glomerular Filt Rate > 60; Glucose Random 165 mg/dL (60-115); Lipase 25 U/L (8-78); Potassium 4.2 mmol/L (3.3-5.1); Sodium 141 mmol/L (135-145); Total Protein 8.4 g/dL (6.5-8.0)
[2024-08-12 14:17] LABS: Lactic Acid 3.1 mmol/L (0.5-2.0)
[2024-08-12 14:21] LABS: B Type Natriuretic Peptide 1641 pg/mL (<100)
[2024-08-12] MEDS: methylPREDNISolone Sod Succ 125 MG/2 ML VIAL IVPUSH (14:24)
[2024-08-12] MEDS: Magnesium Sulfate/H2O 2 GM/50 ML PIGGYBACK IV (14:24)
[2024-08-12 14:25] LABS: Troponin-I High Sensitivity 567.2 ng/L (<3.5-17.0)
[2024-08-12] MEDS: cefTRIAXone sodium 1 GM VIAL IVPUSH (14:27)
[2024-08-12] MEDS: Albuterol Sulfate 5 MG, Albuterol/Iprat 2.5/0.5MG 3 ML 3 ML INHALE (14:28)
[2024-08-12 14:37] LABS: Influenza A PCR NEGATIVE (Negative); Influenza B PCR NEGATIVE (Negative); Resp Syncy Virus RNA Qual PCR NEGATIVE (Negative); SARS COV2 PCR INHOUSE NEGATIVE (Negative)
[2024-08-12] MEDS: Aspirin 325 MG TABLET PO (15:12)
--- NOTE | 2024-08-12 15:29 | PC.NURSE ---
Patient straight cathed, de sated down to 80% with movement , 02 turned up t 9 liters patient sating 90%. Patient reporting no BM x 3 days, provider notified of no bm and desaturation
[2024-08-12 15:33] LABS: Hemoglobin 8.7 g/dl (12.0-16.0); Mean Corpuscular Hemoglobin 26.3 pg (27.0-33.0); Mean Corpuscular Volume 87.6 fL (80.0-98.0); Mean Platelet Volume 9.1 fL (9.4-12.3); Platelet Count 777 X10*3/uL (160-400); Red Blood Count 3.31 X10*6/uL (4.20-5.50); White Blood Count 9.2 X10*3/uL (4.8-10.8)
[2024-08-12 15:34] LABS: Appearance Urine Clear; Color Urine Dark Yellow; Glucose Urine UA 500 mg/dL (Negative); Leukocyte Esterase Urine Negative (Negative); Nitrite Urine Negative (Negative); PH 5.5 (5.0-9.0); Specific Gravity - Urine >= 1.030 (1.005-1.025); UMIC TRIGGER UACC YES; Urine Blood Negative (Negative); Urine Ketones Trace mg/dL (Negative); Urine Protein 100 (2+) mg/dL (Neg-Trace)
--- NOTE | 2024-08-12 15:40 | PM.IMHP ---
History of Present Illness Date of Service: 08/12/24 Chief Complaint: Chest pain 83 year old women presenting with chest pain. Patient lives with her daughter and is mostly chair/bedbound due to lung disease and hypoxia. She reports chest substernal chest pain worse with coughing without radiation. She also reports constipation of several days. She has chronic lung disease and is on oxygen at all times. Chest x-ray showed changes of pulmonary fibrosis. Troponin and BNP elevated. She received Therapeutic lovenox dose as well as aspirin, solumedrol, IV magnesium, albuterol and rocephin. She will be admitted for further management and treatment of NSTEMI and CHF Review of Systems Review of Systems: Denies any recent fever chills or decrease in appetite respiratory See HPI cardiovascular See HPI gastrointestinal denies any dysphagia abdominal pain nausea vomiting or diarrhea genitourinary denies any dysuria frequency or hematuria musculoskeletal denies any joint pain or swelling neuropsych denies any weakness or seizures all other systems reviewed are negative [facility]LY [facility] Medical History Chest pain Pulmonary hypertension Hip pain, left Bilateral hip pain Pneumonitis Right lower quadrant abdominal pain Mass on back H/O thrombocytosis COPD with acute exacerbation Pneumonia Weakness Constipation Elevated WBC count Asthma-COPD overlap syndrome Chronic respiratory failure Generalized anxiety disorder Urinary incontinence CVA (cerebral vascular accident) Osteopenia Lumbar spinal stenosis Interstitial pulmonary fibrosis Insomnia Cystocele Hypertension Hypercholesterolemia Type 2 diabetes mellitus with hyperglycemia Family History Mother No problems noted. Surgical History Hx of section Social History Household Members: Spouse and Children Housing: House Do you presently have visiting nurse or other home services: No Alcohol intake: never Patient Tobacco Use Status: Never used Tobacco Tobacco use type: Cigarette e-Cigarette/Vaping Use: Never Used Second Hand Smoke Exposure: Yes (Her father smoked around her in her youth) Advance Directives Date on File: 10/15/23 service: No Current occupational status: retired Cognitive needs: Yes ([employer] at home) Hearing needs: No Vision needs: Yes Meds Allergies Allergy/AdvReac Type Severity Reaction Status Date / Time No Known Allergies Allergy Verified 08/12/24 13:24 Active Medications: Current Medications Magnesium Sulfate (Magnesium Sulfate/H2o) 2 gm in 50 mls @ 25 mls/hr IV ONCE ONE Stop: 08/12/24 15:45 Last Admin: 08/12/24 14:24 Dose: 25 mls/hr Home Medications ?Medication ?Instructions ?Recorded ?Confirmed ?Last Taken ?Type Oxygen Home Use 10/23/22 03/16/24 Unknown History tamsulosin 0.4 mg capsule 0.4 mg PO BEDTIME 02/24/24 08/12/24 08/11/24 History insulin glargine 100 unit/mL (3 10 unit subcut DAILY@1300 03/09/24 08/12/24 08/11/24 History mL) subcutaneous pen (Lantus Solostar U-100 Insulin) cholecalciferol (vitamin D3) 50 50 mcg PO BEDTIME 08/12/24 08/12/24 08/11/24 History mcg (2,000 unit) capsule loratadine 10 mg tablet 10 mg PO DAILY 08/12/24 08/12/24 08/11/24 History losartan 50 mg tablet 50 mg PO DAILY 08/12/24 08/12/24 08/11/24 History magnesium oxide 400 mg (241.3 mg 400 mg PO BEDTIME 08/12/24 08/12/24 08/11/24 History magnesium) tablet tramadol 50 mg tablet 50 mg PO BEDTIME pain 08/12/24 08/12/24 08/11/24 History Physical Exam Vital Signs and Narrative: Vital Signs: Last Vital Signs Temp 98.9 F 08/12/24 15:27 Pulse 96 08/12/24 15:27 Resp 18 08/12/24 15:27 BP 118/56 L 08/12/24 15:27 Pulse Ox 92 08/12/24 15:27 O2 Del Method Oxymask 08/12/24 15:27 O2 Flow Rate 9 08/12/24 15:27 BMI result Body Mass Index 19.3 Appearing in no acute distress head is normocephalic atraumatic eyes pupils are PERRLA sclera is anicteric mouth throat mucous membranes are intact and moist neck is supple no lymphadenopathy, no JVD noted lung sounds rhonchi heart regular rate rhythm, clear S1, S2 positive bowel sounds, abdomen is soft, nontender neuro patient is alert x3, no focal deficits Results Labs 08/14/24 06:44 08/14/24 06:44 Labs: Laboratory Results - last 24 hr 08/12/24 08/12/24 08/12/24 13:40 13:49 13:50 MCV 87.7 MCH 26.5 L MCHC 30.3 L RDW 17.1 H Plt Count 847 H MPV 8.9 L Immature Gran % (Auto) 0.3 Neut % (Auto) 77.0 H Lymph % (Auto) 13.6 L [place] % (Auto) 8.0 Eos % (Auto) 0.3 Baso % (Auto) 0.8 Lymph # (Auto) 1.1 L [place] # (Auto) 0.6 Eos # (Auto) 0.0 Baso # (Auto) 0.1 Abs Immat Gran (auto) 0.02 Absolute Neuts (auto) 6.1 Absolute Nucleated RBC 0.000 Nucleated RBC % (auto) 0.0 PT INR VBG pH VBG pCO2 VBG pO2 VBG HCO3 VBG O2 Saturation VBG Base Excess Anion Gap 18 Estim Creat Clear Calc 44.6 Estimated GFR > 60 Random Glucose 165 H Lactic Acid 3.1 H* Calcium 9.4 Total Bilirubin 1.2 H Direct Bilirubin 0.5 AST 167 H ALT 66 H Alkaline Phosphatase 204 H B-Natriuretic Peptide 1641 H Total Protein 8.4 H Albumin 3.5 Lipase 25 Urine Color Urine Appearance Urine pH Ur Specific [place] Urine Protein Urine Glucose (UA) Urine Ketones Urine Blood Urine Nitrite Ur Leukocyte Esterase Influenza Type A (PCR) NEGATIVE Influenza Type B (PCR) NEGATIVE RSV RNA Qual (PCR) NEGATIVE SARS-CoV-2 RNA (RT-PCR) NEGATIVE 08/12/24 08/12/24 08/12/24 13:53 13:59 15:22 MCV 87.6 MCH 26.3 L MCHC 30.0 L RDW 17.0 H Plt Count 777 H MPV 9.1 L Immature Gran % (Auto) Neut % (Auto) Lymph % (Auto) [place] % (Auto) Eos % (Auto) Baso % (Auto) Lymph # (Auto) [place] # (Auto) Eos # (Auto) Baso # (Auto) Abs Immat Gran (auto) Absolute Neuts (auto) Absolute Nucleated RBC 0.000 Nucleated RBC % (auto) 0.0 PT 21.6 H D INR 1.9 H VBG pH 7.40 VBG pCO2 59 VBG pO2 27 VBG HCO3 37 H VBG O2 Saturation < 30.0 VBG Base Excess 10.3 Anion Gap Estim Creat Clear Calc Estimated GFR Random Glucose Lactic Acid Calcium Total Bilirubin Direct Bilirubin AST ALT Alkaline Phosphatase B-Natriuretic Peptide Total Protein Albumin Lipase Urine Color Dark Yellow Urine Appearance Clear Urine pH 5.5 Ur Specific [place] >= 1.030 H Urine Protein 100 (2+) H Urine Glucose (UA) 500 H Urine Ketones Trace Urine Blood Negative Urine Nitrite Negative Ur Leukocyte Esterase Negative Influenza Type A (PCR) Influenza Type B (PCR) RSV RNA Qual (PCR) SARS-CoV-2 RNA (RT-PCR) Assessment and Plan (1) Congestive heart failure: Qualifiers: Heart failure chronicity: chronic Heart failure type: unspecified Qualified Code(s): I50.9 - Heart failure, unspecified Status: Acute (2) Acute non-ST elevation myocardial infarction (NSTEMI): Status: Acute Plan 83-year-old woman admitted with NSTEMI and acute congestive heart failure NSTEMI Therapeutic Lovenox Cardiology consultation Echocardiogram Aspirin and statin Heart failure with preserved ejection fraction IV Lasix Cardiology consultation Echocardiogram Monitor daily weights Strict intake and output Asthma/COPD overlap syndrome dry cough antitussin Continue oxygen supplementation to keep oxygen saturation greater than 90% Constipation no BM in more than 2 days senna, colace, bisacodyl Hypertension Stable blood pressure continue losartan Diabetes mellitus type 2 Sliding scale, ADA diet Chronic thrombocytosis baseline DVT prophylaxis with therapeutic Lovenox Full code Quality Stroke Does the patient have a stroke diagnosis?: No VTE Prior VTE?: No VTE Risk Level:: Medical - moderate - high VTE Device Contraindication: Treatment Not Indicated VTE Drug Contraindication: N/A - Med Ordered
[2024-08-12 15:57] LABS: Reflex Lactate? Lactic Acid Added
[2024-08-12] MEDS: Enoxaparin Sodium 60 MG/0.6 ML SYRINGE 50 MG SUBCUT (16:04)
[2024-08-12] MEDS: 0.9 % Sodium Chloride Flush 3 ML SYRINGE IVFLUSH (16:05)
[2024-08-12] MEDS: Furosemide 40 MG/4 ML VIAL IVPUSH (16:35)
--- NOTE | 2024-08-12 16:37 | PC.NURSE ---
Patient with increase wob, provider at bedside aware of bp okay to give lasiks, sating 90 % on 10l via oxy mask
--- NOTE | 2024-08-12 17:00 | PHA.MEDREC ---
Addendum entered by Kb Vora [facility] 08/12/24 17:47: MED REC CHECKED BY [facility] Original Note: Pharmacy Consult ? Medication Reconciliation Pharmacy has completed the medication reconciliation. Spoke to pt and family to confirm meds. Pt does not take iron, flonase, glipizide, or mometasone anymore. 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
[2024-08-12 17:05] LABS: INTERNATIONAL NORM RATIO 1.6 (0.9-1.1); Prothrombin Time 18.6 SEC (10.9-12.4)
[2024-08-12 17:08] LABS: Partial Thromboplastin Time 24.3 SEC (26.0-36.8)
[2024-08-12 17:19] LABS: ~Lactic Acid-LAB USE ONLY 3.5 mmol/L (0.5-2.0)
[2024-08-12] MEDS: guaiFENesin LA 600 MG TAB.ER.12H PO ×2 (17:20→20:29)
[2024-08-12] MEDS: Morphine Sulfate 2 MG/ML CARTRIDGE 0.5 MG IVPUSH (17:22)
[2024-08-12 18:09] LABS: Bacteria Urine None Seen (None Seen); RBC Urine 0-2 /HPF (0-2); Squamous Epithelial Cell Urine 0-2 /HPF (0-2); WBC Urine 0-5 /HPF (0-5)
[2024-08-12 18:30] LABS: Reflex Lactate? 2 Y
[2024-08-12 19:27] LABS: ~Lactic Acid-LAB USE ONLY 2.4 mmol/L (0.5-2.0)
--- NOTE | 2024-08-12 19:35 | PC.NURSE ---
critical lab of 2.4 lactic acid reported to Provider Wilfredo, no new orders at this time.
[2024-08-12] MEDS: traMADoL HCL 50 MG TABLET PO (20:28)
[2024-08-12] MEDS: Sennosides 8.6 MG TABLET 17.2 MG PO (20:29)
[2024-08-12] MEDS: Gabapentin 300 MG CAPSULE PO (20:29)
[2024-08-12] MEDS: Docusate Sodium 100 MG CAPSULE PO (20:29)
[2024-08-12] MEDS: Magnesium Oxide 400 MG TABLET PO (20:29)
[2024-08-12] MEDS: Atorvastatin Calcium 40 MG TABLET PO (20:29)
[2024-08-12] MEDS: Cholecalciferol (Vitamin D3) 25 MCG TABLET 50 MCG PO (20:29)
[2024-08-12] MEDS: mycophenolate mofetiL 250 MG CAPSULE 1000 MG PO (21:05)
[2024-08-12] MEDS: Tamsulosin HCL 0.4 MG CAPSULE PO (21:05)
[2024-08-12] MEDS: guaiFENesin 100 MG/5 ML 5 ML LIQUID PO (23:24)
[2024-08-13] VITALS (10 sets, daily range): BP systolic 98–123; BP diastolic 53–69; PULSE 82–100; RESP 16–23; TEMP 36.2–36.7; O2SAT 90–100
[2024-08-13] MEDS: Enoxaparin Sodium 40 MG/0.4 ML SYRINGE 50 MG SUBCUT (03:50)
[2024-08-13 05:38] LABS: Hematocrit 29.4 % (37.0-47.0); Hemoglobin 8.9 g/dl (12.0-16.0); Mean Corpuscular HGB Conc 30.3 g/dl (31.0-35.0); Mean Corpuscular Hemoglobin 26.1 pg (27.0-33.0); Mean Corpuscular Volume 86.2 fL (80.0-98.0); Platelet Count 743 X10*3/uL (160-400); Red Blood Count 3.41 X10*6/uL (4.20-5.50); White Blood Count 5.2 X10*3/uL (4.8-10.8)
[2024-08-13 05:50] LABS: Anion Gap 14 (12-20); Blood Urea Nitrogen 21 mg/dL (9-16); Calcium 8.8 mg/dL (8.4-10.2); Carbon Dioxide 33 mmol/L (22-29); Chloride 97 mmol/L (96-108); Creatinine Clr Calc Pharmacy 44.6; Estimated Glomerular Filt Rate > 60; Glucose Random 300 mg/dL (60-115); Potassium 3.6 mmol/L (3.3-5.1); Sodium 140 mmol/L (135-145)
[2024-08-13 05:54] LABS: B Type Natriuretic Peptide 1606 pg/mL (<100)
[2024-08-13 07:42] LABS: Glucose, Whole Blood 245 mg/dL (60-115)
[2024-08-13] MEDS: Losartan Potassium 50 MG TABLET PO (08:30)
[2024-08-13] MEDS: Aspirin Enteric Coated 81 MG TABLET.DR PO (08:31)
[2024-08-13] MEDS: bisacodyL 5 MG TABLET.DR 10 MG PO (08:31)
[2024-08-13] MEDS: guaiFENesin LA 600 MG TAB.ER.12H PO ×2 (08:31→21:24)
[2024-08-13 08:32] LABS: Alanine Aminotransferase 69 U/L (0-31); Albumin Level 3.3 g/dL (3.5-5.0); Alkaline Phosphatase 261 U/L (39-117); Aspartate Amino Transferase 133 U/L (5-31); Bilirubin Direct 0.5 mg/dL (0.0-0.5); Bilirubin Total 0.8 mg/dL (0.0-1.0); Total Protein 7.5 g/dL (6.5-8.0)
[2024-08-13] MEDS: Docusate Sodium 100 MG CAPSULE PO (08:32)
[2024-08-13] MEDS: Loratadine 10 MG TABLET PO (08:33)
[2024-08-13] MEDS: Furosemide 40 MG/4 ML VIAL IVPUSH ×2 (08:33→17:04)
[2024-08-13] MEDS: DULoxetine HCl 60 MG CAPSULE.DR PO (08:33)
[2024-08-13] MEDS: iohexoL 350 MG/ML 100 ML INFUS..BTL 65 ML IV (08:47)
--- NOTE | 2024-08-13 10:50 | PM.CNCAR ---
History of Present Illness History of Present Illness Date of Service: 08/13/24 Chief complaint: NSTEMI, CHF Narrative: This is a cardiology consultation regarding elevated troponins. It appears that patient is mostly chair/bed bound due to lung issues. She presented with pleuritic type chest pain. Constipation for several days. Chronic lung disease requiring oxygen. History of pulmonary fibrosis. In this context, troponins were elevated and that led to hospitalization. Patient states that she is uncomfortable because she is not past urine or motor bubbles. Otherwise, apart from the pleuritic type pain no clear-cut cardiac symptoms. Son is at the bedside and he states that there is no history of any coronary disease or myocardial infarction or cardiomyopathy. Review of Systems Review of Systems: Yes all other systems are reviewed and are negative Constitutional: Constitutional: Reports as per HPI and Reports no additional constitutional complaints Eyes: Eyes: Reports as per HPI and Denies no additional eye complaints ENT: Denies system reviewed and no additional complaints, except as documented and Reports as per HPI Cardiovascular: Cardiovascular: Reports as per HPI, Reports no additional cardiovascular complaints, Denies acrocyanosis, Denies cool extremities, Reports chest pain, Denies leg edema, Denies lightheadedness, Denies palpitations and Reports dyspnea Respiratory: Respiratory: Reports as per HPI, Denies no additional respiratory complaints and Reports dyspnea Gastrointestinal: Gastrointestinal: Reports as per HPI and Denies no additional gastrointestinal complaints Genitourinary: Genitourinary: Reports as per HPI Musculoskeletal: Musculoskeletal: Reports no additional musculoskeletal complaints and Reports as per HPI Integumentary/Breasts: Skin/Breast: Reports system reviewed and no additional complaints, except as docu Neurologic: Reports system reviewed and no additional complaints, except as documented and Reports as per HPI Psychiatric: Psychiatric: Reports no additional psychiatric complaints and Reports as per HPI Endocrine: Endocrine: Reports no additional endocrine complaints, Reports as per HPI and Denies palpitations Hematologic/Lymphatic: Hematologic/Lymphatic: Reports no additional hematologic/lymphatic complaints and Reports as per HPI Allergic/Immunologic: Allergic/Immunologic: Reports no additional allergic/immunologic complaints and Reports as per HPI [facility] Past Medical History Medical History Chest pain Pulmonary hypertension Hip pain, left Bilateral hip pain Pneumonitis Right lower quadrant abdominal pain Mass on back H/O thrombocytosis COPD with acute exacerbation Pneumonia Weakness Constipation Elevated WBC count Asthma-COPD overlap syndrome Chronic respiratory failure Generalized anxiety disorder Urinary incontinence CVA (cerebral vascular accident) Osteopenia Lumbar spinal stenosis Interstitial pulmonary fibrosis Insomnia Cystocele Hypertension Hypercholesterolemia Type 2 diabetes mellitus with hyperglycemia Family History Family History Mother No problems noted. Surgical History Surgical History Hx of section Social History Social History Household Members: Significant Other Housing: House Do you presently have visiting nurse or other home services: No Alcohol intake: never Patient Tobacco Use Status: Never used Tobacco Tobacco use type: Cigarette Smoked in Last 30 Days: No e-Cigarette/Vaping Use: Never Used Second Hand Smoke Exposure: No Use of substances other than those prescribed or required for medical reasons: No Advance Directives: Yes Advance Directives on File: Yes Advance Directives Date on File: 10/15/23 service: No Current occupational status: retired Cognitive needs: Yes (Walker and Cane at home) Hearing needs: No Vision needs: Yes Meds Allergies Allergy/AdvReac Type Severity Reaction Status Date / Time No Known Allergies Allergy Verified 08/12/24 13:24 Active Medications: Current Medications Acetaminophen (Acetaminophen 325 Mg Tablet) 650 mg PO Q6H PRN PRN Reason: Pain, Mild 1-3,fever,headache Aspirin (Aspirin Enteric Coated 81 Mg Tablet.) 81 mg PO DAILY [facility] Last Admin: 08/13/24 08:31 Dose: 81 mg Atorvastatin Calcium (Atorvastatin Calcium 40 Mg Tablet) 40 mg PO BEDTIME [facility] Last Admin: 08/12/24 20:29 Dose: 40 mg Bisacodyl (Bisacodyl 5 Mg Tablet.) 10 mg PO DAILY [facility] Last Admin: 08/13/24 08:31 Dose: 10 mg Calcium Carbonate (Calcium Carbonate 750 Mg Tab.Chew) 750 mg PO Q4H PRN PRN Reason: Heartburn Docusate Sodium (Docusate Sodium 100 Mg Capsule) 100 mg PO BID [facility] Last Admin: 08/13/24 08:32 Dose: 100 mg Duloxetine HCl (Duloxetine Hcl 60 Mg Capsule.) 60 mg PO DAILY [facility] Last Admin: 08/13/24 08:33 Dose: 60 mg Enoxaparin Sodium (Enoxaparin Sodium 40 Mg/0.4 Ml Syringe) 50 mg SUBCUT Q12H [facility] Last Admin: 08/13/24 03:50 Dose: 50 mg Furosemide (Furosemide 40 Mg/4 Ml Vial) 40 mg IVPUSH BID@0900,1800 [facility]; Protocol Last Admin: 08/13/24 08:33 Dose: 40 mg Gabapentin (Gabapentin 300 Mg Capsule) 300 mg PO BEDTIME [facility] Last Admin: 08/12/24 20:29 Dose: 300 mg Guaifenesin (Guaifenesin La 600 Mg Tab.Er.12h) 600 mg PO BID [facility] Last Admin: 08/13/24 08:31 Dose: 600 mg Guaifenesin (Guaifenesin 100 Mg/5 Ml 5 Ml Liquid) 5 ml PO Q4H PRN PRN Reason: Cough Last Admin: 08/12/24 23:24 Dose: 5 ml Insulin Glargine (Insulin Glargine,Hum.Rec.Anlog 100 Unit/Ml 10 Ml Vial) 10 unit SUBCUT DAILY@1300 [facility] Loratadine (Loratadine 10 Mg Tablet) 10 mg PO DAILY [facility] Last Admin: 08/13/24 08:33 Dose: 10 mg Losartan Potassium (Losartan Potassium 50 Mg Tablet) 50 mg PO DAILY [facility]; Protocol Last Admin: 08/13/24 08:30 Dose: 50 mg Magnesium Hydroxide (Milk Of Magnesia 30 Ml Oral.Susp) 30 ml PO DAILY PRN PRN Reason: Constipation Magnesium Oxide (Magnesium Oxide 400 Mg Tablet) 400 mg PO BEDTIME [facility] Last Admin: 08/12/24 20:29 Dose: 400 mg Melatonin (Melatonin 3 Mg Tablet) 6 mg PO BEDTIME PRN PRN Reason: Insomnia Morphine Sulfate (Morphine Sulfate 2 Mg/Ml Cartridge) 0.5 mg IVPUSH Q4H PRN; Protocol PRN Reason: Chest Pain Last Admin: 08/12/24 17:22 Dose: 0.5 mg Mycophenolate Mofetil (Mycophenolate Mofetil 250 Mg Capsule) 1,000 mg PO BID [facility] Last Admin: 08/12/24 21:05 Dose: 1,000 mg Ondansetron HCl (Ondansetron Hcl 4 Mg/2 Ml Vial) 4 mg IVPUSH Q8H PRN PRN Reason: Nausea and Vomiting Senna (Sennosides 8.6 Mg Tablet) 17.2 mg PO BEDTIME [facility] Last Admin: 08/12/24 20:29 Dose: 17.2 mg Sodium Chloride (0.9 % Sodium Chloride Flush 3 Ml Syringe) 3 ml IVFLUSH QSHIFT [facility] Last Admin: 08/13/24 01:14 Dose: Not Given Tamsulosin HCl (Tamsulosin Hcl 0.4 Mg Capsule) 0.4 mg PO BEDTIME [facility] Last Admin: 08/12/24 21:05 Dose: 0.4 mg Tramadol HCl (Tramadol Hcl 50 Mg Tablet) 50 mg PO BEDTIME [facility] Last Admin: 08/12/24 20:28 Dose: 50 mg Vitamin D (Cholecalciferol (Vitamin D3) 25 Mcg Tablet) 50 mcg PO BEDTIME [facility] Last Admin: 08/12/24 20:29 Dose: 50 mcg Home Medications ?Medication ?Instructions ?Recorded ?Confirmed ?Last Taken ?Type Oxygen Home Use 10/23/22 03/16/24 Unknown History tamsulosin 0.4 mg capsule 0.4 mg PO BEDTIME 02/24/24 08/12/24 08/11/24 History insulin glargine 100 unit/mL (3 10 unit subcut DAILY@1300 03/09/24 08/12/24 08/11/24 History mL) subcutaneous pen (Lantus Solostar U-100 Insulin) cholecalciferol (vitamin D3) 50 50 mcg PO BEDTIME 08/12/24 08/12/24 08/11/24 History mcg (2,000 unit) capsule loratadine 10 mg tablet 10 mg PO DAILY 08/12/24 08/12/24 08/11/24 History losartan 50 mg tablet 50 mg PO DAILY 08/12/24 08/12/24 08/11/24 History magnesium oxide 400 mg (241.3 mg 400 mg PO BEDTIME 08/12/24 08/12/24 08/11/24 History magnesium) tablet tramadol 50 mg tablet 50 mg PO BEDTIME pain 08/12/24 08/12/24 08/11/24 History Physical Exam Vital Signs: Vital Signs: Last Vital Signs Temp 98.2 F 08/12/24 23:23 Pulse 89 08/13/24 08:52 Resp 21 H 08/13/24 08:52 BP 118/54 L 08/13/24 08:52 Pulse Ox 93 08/13/24 08:52 O2 Del Method Oxymask 08/13/24 08:52 O2 Flow Rate 11 08/13/24 08:52 BMI result Body Mass Index 19.3 Const: General: comfortable and no acute distress Orientation/consciousness: patient oriented x3 HEENT: Other: Unremarkable Head: Yes normal to inspection Neck: Neck: Yes normal visual inspection Chest: Chest palpation & inspection: normal inspection of the chest Resp: Auscultation: crackles Cardio: Palpation: normal PMI Heart sounds: S1 normal heart sound present, S2 normal heart sound present, no gallops, no murmurs and no rubs GI: Palpation (GI): Soft to palpation Back/Spine/Pelvis: Other: unremarkable Skin: General skin exam: no rashes or lesions noted Neuro: General: patient oriented x3 Extrem: General: Yes normal to inspection Psych: Mental Status: mental status grossly normal Objective Labs and Meds 08/13/24 05:21 08/13/24 05:21 Lab results: Laboratory Results - last 24 hr 08/12/24 08/12/24 08/12/24 13:40 13:49 13:50 WBC 7.9 RBC 3.73 L Hgb 9.9 L Hct 32.7 L MCV 87.7 MCH 26.5 L MCHC 30.3 L RDW 17.1 H Plt Count 847 H MPV 8.9 L Immature Gran % (Auto) 0.3 Neut % (Auto) 77.0 H Lymph % (Auto) 13.6 L [place] % (Auto) 8.0 Eos % (Auto) 0.3 Baso % (Auto) 0.8 Lymph # (Auto) 1.1 L [place] # (Auto) 0.6 Eos # (Auto) 0.0 Baso # (Auto) 0.1 Abs Immat Gran (auto) 0.02 Absolute Neuts (auto) 6.1 Absolute Nucleated RBC 0.000 Nucleated RBC % (auto) 0.0 Hold Purple Top PT INR APTT Hold Blue Top VBG pH VBG pCO2 VBG pO2 VBG HCO3 VBG O2 Saturation VBG Base Excess Sodium 141 Potassium 4.2 D Chloride 99 Carbon Dioxide 28 Anion Gap 18 BUN 17 H Creatinine 0.71 Estim Creat Clear Calc 44.6 Estimated GFR > 60 POC Glucose Random Glucose 165 H Lactic Acid 3.1 H* Lactic Acid F/U @ 2Hr Lactic Acid F/U @ 4Hr Calcium 9.4 Total Bilirubin 1.2 H Direct Bilirubin 0.5 AST 167 H ALT 66 H Alkaline Phosphatase 204 H Troponin I High Sens 567.2 H* D B-Natriuretic Peptide 1641 H Total Protein 8.4 H Albumin 3.5 Lipase 25 Urine Color Urine Appearance Urine pH Ur Specific [place] Urine Protein Urine Glucose (UA) Urine Ketones Urine Blood Urine Nitrite Ur Leukocyte Esterase Urine RBC Urine WBC Ur Squamous Epith Cells Urine Bacteria Hyaline Casts Influenza Type A (PCR) NEGATIVE Influenza Type B (PCR) NEGATIVE RSV RNA Qual (PCR) NEGATIVE SARS-CoV-2 RNA (RT-PCR) NEGATIVE 08/12/24 08/12/24 08/12/24 13:53 13:59 15:22 WBC 9.2 RBC 3.31 L Hgb 8.7 L Hct 29.0 L MCV 87.6 MCH 26.3 L MCHC 30.0 L RDW 17.0 H Plt Count 777 H MPV 9.1 L Immature Gran % (Auto) Neut % (Auto) Lymph % (Auto) [place] % (Auto) Eos % (Auto) Baso % (Auto) Lymph # (Auto) [place] # (Auto) Eos # (Auto) Baso # (Auto) Abs Immat Gran (auto) Absolute Neuts (auto) Absolute Nucleated RBC 0.000 Nucleated RBC % (auto) 0.0 Hold Purple Top PT 21.6 H D INR 1.9 H APTT Hold Blue Top VBG pH 7.40 VBG pCO2 59 VBG pO2 27 VBG HCO3 37 H VBG O2 Saturation < 30.0 VBG Base Excess 10.3 Sodium Potassium Chloride Carbon Dioxide Anion Gap BUN Creatinine Estim Creat Clear Calc Estimated GFR POC Glucose Random Glucose Lactic Acid Lactic Acid F/U @ 2Hr Lactic Acid F/U @ 4Hr Calcium Total Bilirubin Direct Bilirubin AST ALT Alkaline Phosphatase Troponin I High Sens B-Natriuretic Peptide Total Protein Albumin Lipase Urine Color Dark Yellow Urine Appearance Clear Urine pH 5.5 Ur Specific [place] >= 1.030 H Urine Protein 100 (2+) H Urine Glucose (UA) 500 H Urine Ketones Trace Urine Blood Negative Urine Nitrite Negative Ur Leukocyte Esterase Negative Urine RBC 0-2 Urine WBC 0-5 Ur Squamous Epith Cells 0-2 Urine Bacteria None Seen Hyaline Casts 11-20 Influenza Type A (PCR) Influenza Type B (PCR) RSV RNA Qual (PCR) SARS-CoV-2 RNA (RT-PCR) 02/22/25 02/22/25 02/23/25 16:26 18:42 05:21 WBC 5.2 RBC 3.41 L Hgb 8.9 L Hct 29.4 L MCV 86.2 MCH 26.1 L MCHC 30.3 L RDW 17.0 H Plt Count 743 H MPV 9.0 L Immature Gran % (Auto) Neut % (Auto) Lymph % (Auto) [place] % (Auto) Eos % (Auto) Baso % (Auto) Lymph # (Auto) [place] # (Auto) Eos # (Auto) Baso # (Auto) Abs Immat Gran (auto) Absolute Neuts (auto) Absolute Nucleated RBC 0.000 Nucleated RBC % (auto) 0.0 Hold Purple Top SEE NOTE PT 18.6 H INR 1.6 H APTT 24.3 L Hold Blue Top SEE NOTE VBG pH VBG pCO2 VBG pO2 VBG HCO3 VBG O2 Saturation VBG Base Excess Sodium 140 Potassium 3.6 Chloride 97 Carbon Dioxide 33 H Anion Gap 14 BUN 21 H Creatinine 0.71 Estim Creat Clear Calc 44.6 Estimated GFR > 60 POC Glucose Random Glucose 300 H Lactic Acid Lactic Acid F/U @ 2Hr 3.5 H* Lactic Acid F/U @ 4Hr 2.4 H* Calcium 8.8 D Total Bilirubin 0.8 Direct Bilirubin 0.5 AST 133 H ALT 69 H Alkaline Phosphatase 261 H Troponin I High Sens B-Natriuretic Peptide 1606 H Total Protein 7.5 Albumin 3.3 L Lipase Urine Color Urine Appearance Urine pH Ur Specific [place] Urine Protein Urine Glucose (UA) Urine Ketones Urine Blood Urine Nitrite Ur Leukocyte Esterase Urine RBC Urine WBC Ur Squamous Epith Cells Urine Bacteria Hyaline Casts Influenza Type A (PCR) Influenza Type B (PCR) RSV RNA Qual (PCR) SARS-CoV-2 RNA (RT-PCR) 08/13/24 08/13/24 07:33 08:11 WBC RBC Hgb Hct MCV MCH MCHC RDW Plt Count MPV Immature Gran % (Auto) Neut % (Auto) Lymph % (Auto) [place] % (Auto) Eos % (Auto) Baso % (Auto) Lymph # (Auto) [place] # (Auto) Eos # (Auto) Baso # (Auto) Abs Immat Gran (auto) Absolute Neuts (auto) Absolute Nucleated RBC Nucleated RBC % (auto) Hold Purple Top PT INR APTT Hold Blue Top VBG pH VBG pCO2 VBG pO2 VBG HCO3 VBG O2 Saturation VBG Base Excess Sodium Potassium Chloride Carbon Dioxide Anion Gap BUN Creatinine Estim Creat Clear Calc Estimated GFR POC Glucose 245 H Random Glucose Lactic Acid Lactic Acid F/U @ 2Hr Lactic Acid F/U @ 4Hr Calcium Total Bilirubin Direct Bilirubin AST ALT Alkaline Phosphatase Troponin I High Sens 437.0 H* B-Natriuretic Peptide Total Protein Albumin Lipase Urine Color Urine Appearance Urine pH Ur Specific [place] Urine Protein Urine Glucose (UA) Urine Ketones Urine Blood Urine Nitrite Ur Leukocyte Esterase Urine RBC Urine WBC Ur Squamous Epith Cells Urine Bacteria Hyaline Casts Influenza Type A (PCR) Influenza Type B (PCR) RSV RNA Qual (PCR) SARS-CoV-2 RNA (RT-PCR) ECG Interpretation: EKG shows sinus rhythm, sinus arrhythmia; nonspecific ST-T changes. Assessment and Plan (1) Acute non-ST elevation myocardial infarction (NSTEMI): Status: Acute (2) Cor pulmonale: Status: Acute Plan CTA chest reported have interstitial lung disease. High sensitivity troponins are 13, 567, 437. Cardiac BNP 1095, 1641, 1606. Last echocardiogram from 01/2024-LVEF 55-60%. Severely increased right ventricular size. Severe pulmonary hypertension. Overall, most likely subacute worsening of chronic lung disease with secondary troponin elevation. Less likely primary cardiac dysfunction but possible. With her age, frailty, advanced lung disease, no definitive cardiac options. Reasonable to keep her on Lovenox for 48 hours. She is also on aspirin and statins. Goals of care will need to be decided. Discussed with son. Procedures Date of Service Date of Service: 08/13/24
[2024-08-13] MEDS: mycophenolate mofetiL 250 MG CAPSULE 1000 MG PO ×2 (11:54→21:18)
[2024-08-13] MEDS: 0.9 % Sodium Chloride Flush 3 ML SYRINGE IVFLUSH ×3 (11:56→21:22)
--- NOTE | 2024-08-13 12:14 | MHC.CM.PN ---
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 VNA PT WILL NEED BLS TRANSPORT
--- NOTE | 2024-08-13 13:58 | P.PNIM_ITS ---
Subjective Subjective Date of Service: 08/13/24 Interval History: seen and evaluated this morning reporting feeling weak and having pain all over her body requiring 11L of O2 (baseline on 6L) having constipation no other events Review of Systems Review of Systems: Yes all other systems are reviewed and are negative Physical Exam 2 Vital Signs: Vital Signs: Last Vital Signs Temp 98.2 F 08/12/24 23:23 Pulse 89 08/13/24 08:52 Resp 21 H 08/13/24 08:52 BP 118/54 L 08/13/24 08:52 Pulse Ox 93 08/13/24 08:52 O2 Del Method Oxymask 08/13/24 08:52 O2 Flow Rate 11 08/13/24 08:52 BMI result Body Mass Index 19.3 Const: Other: Constitutional : interactive, frail looking, not in distress Cardiovascular : no JVP, no lower extremity edema Respiratory : bilateral chest movement, not in resp distress Gastrointestinal: soft, lax, Non tender Skin : Warm, Dry Neurological : Alert & oriented to self and place, No focal deficit Objective Data Active Medications Acetaminophen (Acetaminophen 325 Mg Tablet) 650 mg PO Q6H PRN PRN Reason: Pain, Mild 1-3,fever,headache Aspirin (Aspirin Enteric Coated 81 Mg Tablet.) 81 mg PO DAILY [facility] Last Admin: 08/13/24 08:31 Dose: 81 mg Documented By: RACHEL Atorvastatin Calcium (Atorvastatin Calcium 40 Mg Tablet) 40 mg PO BEDTIME [facility] Last Admin: 08/12/24 20:29 Dose: 40 mg Documented By: JOSSE Bisacodyl (Bisacodyl 5 Mg Tablet.) 10 mg PO DAILY [facility] Last Admin: 08/13/24 08:31 Dose: 10 mg Documented By: RACHEL Calcium Carbonate (Calcium Carbonate 750 Mg Tab.Chew) 750 mg PO Q4H PRN PRN Reason: Heartburn Docusate Sodium (Docusate Sodium 100 Mg Capsule) 100 mg PO BID [facility] Last Admin: 08/13/24 08:32 Dose: 100 mg Documented By: RACHEL Duloxetine HCl (Duloxetine Hcl 60 Mg Capsule.) 60 mg PO DAILY [facility] Last Admin: 08/13/24 08:33 Dose: 60 mg Documented By: RACHEL Enoxaparin Sodium (Enoxaparin Sodium 40 Mg/0.4 Ml Syringe) 50 mg SUBCUT Q12H [facility] Last Admin: 08/13/24 03:50 Dose: 50 mg Documented By: JOSSE Furosemide (Furosemide 40 Mg/4 Ml Vial) 40 mg IVPUSH BID@0900,1800 [facility]; Protocol Last Admin: 08/13/24 08:33 Dose: 40 mg Documented By: RACHEL Gabapentin (Gabapentin 300 Mg Capsule) 300 mg PO BEDTIME [facility] Last Admin: 08/12/24 20:29 Dose: 300 mg Documented By: JOSSE Guaifenesin (Guaifenesin La 600 Mg Tab.Er.12h) 600 mg PO BID [facility] Last Admin: 08/13/24 08:31 Dose: 600 mg Documented By: RACHEL Guaifenesin (Guaifenesin 100 Mg/5 Ml 5 Ml Liquid) 5 ml PO Q4H PRN PRN Reason: Cough Last Admin: 08/12/24 23:24 Dose: 5 ml Documented By: JOSSE Insulin Glargine (Insulin Glargine,Hum.Rec.Anlog 100 Unit/Ml 10 Ml Vial) 10 unit SUBCUT DAILY@1300 CRISTIAN Loratadine (Loratadine 10 Mg Tablet) 10 mg PO DAILY [facility] Last Admin: 08/13/24 08:33 Dose: 10 mg Documented By: RACHEL Losartan Potassium (Losartan Potassium 50 Mg Tablet) 50 mg PO DAILY [facility]; Protocol Last Admin: 08/13/24 08:30 Dose: 50 mg Documented By: RACHEL Magnesium Hydroxide (Milk Of Magnesia 30 Ml Oral.Susp) 30 ml PO DAILY PRN PRN Reason: Constipation Magnesium Oxide (Magnesium Oxide 400 Mg Tablet) 400 mg PO BEDTIME [facility] Last Admin: 08/12/24 20:29 Dose: 400 mg Documented By: JOSSE Melatonin (Melatonin 3 Mg Tablet) 6 mg PO BEDTIME PRN PRN Reason: Insomnia Morphine Sulfate (Morphine Sulfate 2 Mg/Ml Cartridge) 0.5 mg IVPUSH Q4H PRN; Protocol PRN Reason: Chest Pain Last Admin: 08/12/24 17:22 Dose: 0.5 mg Documented By: TREE Mycophenolate Mofetil (Mycophenolate Mofetil 250 Mg Capsule) 1,000 mg PO BID [facility] Last Admin: 08/13/24 11:54 Dose: 1,000 mg Documented By: RACHEL Ondansetron HCl (Ondansetron Hcl 4 Mg/2 Ml Vial) 4 mg IVPUSH Q8H PRN PRN Reason: Nausea and Vomiting Senna (Sennosides 8.6 Mg Tablet) 17.2 mg PO BEDTIME [facility] Last Admin: 08/12/24 20:29 Dose: 17.2 mg Documented By: JOSSE Sodium Chloride (0.9 % Sodium Chloride Flush 3 Ml Syringe) 3 ml IVFLUSH QSHIFT [facility] Last Admin: 08/13/24 11:56 Dose: 3 ml Documented By: RACHEL Tamsulosin HCl (Tamsulosin Hcl 0.4 Mg Capsule) 0.4 mg PO BEDTIME [facility] Last Admin: 08/12/24 21:05 Dose: 0.4 mg Documented By: JOSSE Tramadol HCl (Tramadol Hcl 50 Mg Tablet) 50 mg PO BEDTIME [facility] Last Admin: 08/12/24 20:28 Dose: 50 mg Documented By: JOSSE Vitamin D (Cholecalciferol (Vitamin D3) 25 Mcg Tablet) 50 mcg PO BEDTIME [facility] Last Admin: 08/12/24 20:29 Dose: 50 mcg Documented By: JOSSE Labs 08/13/24 05:21 08/13/24 05:21 Labs: Laboratory Results - last 24 hr 08/12/24 08/12/24 08/12/24 13:40 13:49 13:50 MCV 87.7 MCH 26.5 L MCHC 30.3 L RDW 17.1 H Plt Count 847 H MPV 8.9 L Immature Gran % (Auto) 0.3 Neut % (Auto) 77.0 H Lymph % (Auto) 13.6 L [place] % (Auto) 8.0 Eos % (Auto) 0.3 Baso % (Auto) 0.8 Lymph # (Auto) 1.1 L [place] # (Auto) 0.6 Eos # (Auto) 0.0 Baso # (Auto) 0.1 Abs Immat Gran (auto) 0.02 Absolute Neuts (auto) 6.1 Absolute Nucleated RBC 0.000 Nucleated RBC % (auto) 0.0 Hold Purple Top PT INR APTT Hold Blue Top VBG pH VBG pCO2 VBG pO2 VBG HCO3 VBG O2 Saturation VBG Base Excess Anion Gap 18 Estim Creat Clear Calc 44.6 Estimated GFR > 60 POC Glucose Random Glucose 165 H Lactic Acid 3.1 H* Lactic Acid F/U @ 2Hr Lactic Acid F/U @ 4Hr Calcium 9.4 Total Bilirubin 1.2 H Direct Bilirubin 0.5 AST 167 H ALT 66 H Alkaline Phosphatase 204 H B-Natriuretic Peptide 1641 H Total Protein 8.4 H Albumin 3.5 Lipase 25 Urine Color Urine Appearance Urine pH Ur Specific [place] Urine Protein Urine Glucose (UA) Urine Ketones Urine Blood Urine Nitrite Ur Leukocyte Esterase Urine RBC Urine WBC Ur Squamous Epith Cells Urine Bacteria Hyaline Casts Influenza Type A (PCR) NEGATIVE Influenza Type B (PCR) NEGATIVE RSV RNA Qual (PCR) NEGATIVE SARS-CoV-2 RNA (RT-PCR) NEGATIVE 08/12/24 08/12/24 08/12/24 13:53 13:59 15:22 MCV 87.6 MCH 26.3 L MCHC 30.0 L RDW 17.0 H Plt Count 777 H MPV 9.1 L Immature Gran % (Auto) Neut % (Auto) Lymph % (Auto) [place] % (Auto) Eos % (Auto) Baso % (Auto) Lymph # (Auto) [place] # (Auto) Eos # (Auto) Baso # (Auto) Abs Immat Gran (auto) Absolute Neuts (auto) Absolute Nucleated RBC 0.000 Nucleated RBC % (auto) 0.0 Hold Purple Top PT 21.6 H D INR 1.9 H APTT Hold Blue Top VBG pH 7.40 VBG pCO2 59 VBG pO2 27 VBG HCO3 37 H VBG O2 Saturation < 30.0 VBG Base Excess 10.3 Anion Gap Estim Creat Clear Calc Estimated GFR POC Glucose Random Glucose Lactic Acid Lactic Acid F/U @ 2Hr Lactic Acid F/U @ 4Hr Calcium Total Bilirubin Direct Bilirubin AST ALT Alkaline Phosphatase B-Natriuretic Peptide Total Protein Albumin Lipase Urine Color Dark Yellow Urine Appearance Clear Urine pH 5.5 Ur Specific [place] >= 1.030 H Urine Protein 100 (2+) H Urine Glucose (UA) 500 H Urine Ketones Trace Urine Blood Negative Urine Nitrite Negative Ur Leukocyte Esterase Negative Urine RBC 0-2 Urine WBC 0-5 Ur Squamous Epith Cells 0-2 Urine Bacteria None Seen Hyaline Casts 11-20 Influenza Type A (PCR) Influenza Type B (PCR) RSV RNA Qual (PCR) SARS-CoV-2 RNA (RT-PCR) 08/12/24 08/12/24 08/13/24 16:26 18:42 05:21 MCV 86.2 MCH 26.1 L MCHC 30.3 L RDW 17.0 H Plt Count 743 H MPV 9.0 L Immature Gran % (Auto) Neut % (Auto) Lymph % (Auto) [place] % (Auto) Eos % (Auto) Baso % (Auto) Lymph # (Auto) [place] # (Auto) Eos # (Auto) Baso # (Auto) Abs Immat Gran (auto) Absolute Neuts (auto) Absolute Nucleated RBC 0.000 Nucleated RBC % (auto) 0.0 Hold Purple Top SEE NOTE PT 18.6 H INR 1.6 H APTT 24.3 L Hold Blue Top SEE NOTE VBG pH VBG pCO2 VBG pO2 VBG HCO3 VBG O2 Saturation VBG Base Excess Anion Gap 14 Estim Creat Clear Calc 44.6 Estimated GFR > 60 POC Glucose Random Glucose 300 H Lactic Acid Lactic Acid F/U @ 2Hr 3.5 H* Lactic Acid F/U @ 4Hr 2.4 H* Calcium 8.8 D Total Bilirubin 0.8 Direct Bilirubin 0.5 AST 133 H ALT 69 H Alkaline Phosphatase 261 H B-Natriuretic Peptide 1606 H Total Protein 7.5 Albumin 3.3 L Lipase Urine Color Urine Appearance Urine pH Ur Specific [place] Urine Protein Urine Glucose (UA) Urine Ketones Urine Blood Urine Nitrite Ur Leukocyte Esterase Urine RBC Urine WBC Ur Squamous Epith Cells Urine Bacteria Hyaline Casts Influenza Type A (PCR) Influenza Type B (PCR) RSV RNA Qual (PCR) SARS-CoV-2 RNA (RT-PCR) 08/13/24 07:33 MCV MCH MCHC RDW Plt Count MPV Immature Gran % (Auto) Neut % (Auto) Lymph % (Auto) [place] % (Auto) Eos % (Auto) Baso % (Auto) Lymph # (Auto) [place] # (Auto) Eos # (Auto) Baso # (Auto) Abs Immat Gran (auto) Absolute Neuts (auto) Absolute Nucleated RBC Nucleated RBC % (auto) Hold Purple Top PT INR APTT Hold Blue Top VBG pH VBG pCO2 VBG pO2 VBG HCO3 VBG O2 Saturation VBG Base Excess Anion Gap Estim Creat Clear Calc Estimated GFR POC Glucose 245 H Random Glucose Lactic Acid Lactic Acid F/U @ 2Hr Lactic Acid F/U @ 4Hr Calcium Total Bilirubin Direct Bilirubin AST ALT Alkaline Phosphatase B-Natriuretic Peptide Total Protein Albumin Lipase Urine Color Urine Appearance Urine pH Ur Specific [place] Urine Protein Urine Glucose (UA) Urine Ketones Urine Blood Urine Nitrite Ur Leukocyte Esterase Urine RBC Urine WBC Ur Squamous Epith Cells Urine Bacteria Hyaline Casts Influenza Type A (PCR) Influenza Type B (PCR) RSV RNA Qual (PCR) SARS-CoV-2 RNA (RT-PCR) Assessment and Plan (1) Acute on chronic hypoxic respiratory failure: Status: Acute (2) Acute non-ST elevation myocardial infarction (NSTEMI): Status: Acute (3) Interstitial pulmonary disease, unspecified: Status: Acute (4) Chronic obstructive pulmonary disease, unspecified: Status: Acute Plan 83-year-old woman admitted with NSTEMI and acute congestive heart failure NSTEMI likely subacute worsening of chronic lung disease with secondary troponin elevation. Cardiology input appreciated, echocardiogram from 01/2024-LVEF 55-60%. Severely increased right ventricular size. Severe pulmonary hypertension. given her age, frailty, advanced lung disease, no definitive cardiac options. Treat with Lovenox for 48 hours. Echocardiogram Aspirin and statin Heart failure with preserved ejection fraction IV Lasix Echocardiogram pending Monitor daily weights Strict intake and output Asthma/COPD overlap syndrome dry cough PRN Nebs antitussin Continue oxygen supplementation to keep oxygen saturation greater than 90% Constipation no BM in more than 2 days senna, colace, bisacodyl Hypertension Stable blood pressure continue losartan Diabetes mellitus type 2 Sliding scale, ADA diet Chronic thrombocytosis baseline DVT prophylaxis with therapeutic Lovenox Full code Quality Stroke Does the patient have a stroke diagnosis?: No VTE Prior VTE?: No VTE Risk Level:: Medical - moderate - high VTE Device Contraindication: Treatment Not Indicated VTE Drug Contraindication: N/A - Med Ordered
[2024-08-13 14:31] LABS: Glucose, Whole Blood 243 mg/dL (60-115)
[2024-08-13] MEDS: Insulin Glargine,Hum.rec.anlog 100 UNIT/ML 10 ML VIAL 10 UNIT SUBCUT (14:47)
[2024-08-13] MEDS: methylPREDNISolone Sod Succ 40 MG/ML VIAL IVPUSH ×2 (14:47→21:19)
[2024-08-13 15:12] LABS: INTERNATIONAL NORM RATIO 1.4 (0.9-1.1); Prothrombin Time 16.9 SEC (10.9-12.4)
[2024-08-13] MEDS: Albuterol/Iprat 2.5/0.5MG 3 ML AMPUL.NEB INHALE ×2 (16:08→19:54)
[2024-08-13] MEDS: Enoxaparin Sodium 60 MG/0.6 ML SYRINGE 50 MG SUBCUT (17:04)
[2024-08-13] MEDS: traMADoL HCL 50 MG TABLET PO (21:19)
[2024-08-13] MEDS: Sennosides 8.6 MG TABLET 17.2 MG PO (21:19)
[2024-08-13] MEDS: Cholecalciferol (Vitamin D3) 25 MCG TABLET 50 MCG PO (21:19)
[2024-08-13] MEDS: Atorvastatin Calcium 40 MG TABLET PO (21:20)
[2024-08-13] MEDS: Magnesium Oxide 400 MG TABLET PO (21:20)
[2024-08-13] MEDS: Gabapentin 300 MG CAPSULE PO (21:21)
[2024-08-14] VITALS (11 sets, daily range): BP systolic 97–118; BP diastolic 52–66; PULSE 84–114; RESP 18–26; TEMP 35.8–36.4; O2SAT 93–100
[2024-08-14] MEDS: Enoxaparin Sodium 60 MG/0.6 ML SYRINGE 50 MG SUBCUT ×2 (05:39→21:35)
[2024-08-14 06:52] LABS: MANUAL DIFF FLAG NO
--- NOTE | 2024-08-14 07:00 | CA_ITS ---
Transthoracic Echocardiogram Patient (Last, First, Middle): Georgie Wiseman, Gender: Female Date of : 1940 Age: 83 Procedure Date: 08/14/2024 Procedure Type: Transthoracic Echocardiogram Location: [facility] [place] Height: 154.94 cm Weight: 46.27 kg BSA: 1.42 m2 Heart Rate: bpm BP: 115 / 58 mmHg Die Maker Bench Stamping: CRISTINO Referring MD: Kusum Villalobos NP Symptoms: chf Study Quality: Fair ECG Rhythm: Atrial Fibrillation Conclusions: - The left ventricular systolic function is normal. The visually estimated ejection fraction is between 60-65%. - Severely increased right ventricular cavity size. - The right atrium is severely dilated. - There is moderate tricuspid valve regurgitation. - Severe pulmonary hypertension is present. Findings Left Ventricle Normal left ventricular cavity size. There is normal left ventricular wall thickness. The left ventricular systolic function is normal. The visually estimated ejection fraction is between 60-65%. There is no evidence of regional wall motion abnormalities. There is a flattened septum in systole consistent with right ventricular pressure overload. Right Ventricle Severely increased right ventricular cavity size. There is mildly decreased right ventricular systolic function. Atria The left atrium is normal in size. The right atrium is severely dilated. Aortic Valve There is a normal trileaflet aortic valve. There is no aortic valve stenosis. There is no aortic valve regurgitation. Mitral Valve The mitral valve appears normal. There is trace mitral valve regurgitation. There is no mitral valve stenosis. Pulmonic Valve There is trace pulmonic valve regurgitation. Tricuspid Valve There is moderate tricuspid valve regurgitation. Severe pulmonary hypertension is present. Great Vessels The sinuses of valsalva and asc aorta are normal in size. Venous The inferior vena cava is normal in size and collapses less than 50% with inspiration. There is evidence of a dilated coronary sinus. Pericardium/Pleural There is a small pericardial effusion. Prior Study Comparison No significant change compared to prior study dated: 02/11/2024. Measurements 2D Linear Measurements RVIDd: 4.67 RVIDd Index: 3.29 IVSd: 0.94 0.6-0.9/0.6-1.0 cm LVIDd: 3.57 3.9-5.3/4.2-5.9 cm LVIDd Index: 2.51 2.4-3.2/2.2-3.1 cm/m2 LVIDs: 2.29 2.0-3.6 cm LVPWd: 0.86 0.7-1.1 cm Ao Root: 3.30 2.1-3.5 cm LA Diam: 3.00 2.7-3.8/3.0-4.0 cm LAIDs Index: 2.11 1.5-2.3 cm/m2 LV Mass: 113.55 67-162/88-224 g LV Mass Index: 79.96 43-95/49-115 g/m2 LVOT Diam: 2.00 3.0+(-)1.3 cm Mitral Valve MV Pk E: 0.52 MV PK A: 0.90 MV Decel Time: 181.00 E/A: 0.60 E'Lateral: 8.05 E'Medial: 3.81 E/E' Med: 13.70 E/E' Lat: 6.50 PHT: 53.00 MVA PHT: 4.15 Decel Dukes: 2.88 Aortic Valve AoV Pk Konstantin: 1.34 AoV Mn Konstantin: 0.84 AoV VTI: 0.20 AoV Pk Grad: 7.00 Aov Mn Grad: 3.00 HAI Cont.VTI: 2.62 LVOT LVOT Pk Konstantin: 0.84 LVOT Mn Konstantin: 0.56 LVOT VTI: 0.17 LVOT Pk Grad: 3.00 LVOT Mn Grad: 2.00 LVOT Diam: 2.00 LVOT Area: 3.14 Diastolic Function MV Pk E: 0.52 MV Pk A: 0.90 E/A: 0.60 E'Medial: 3.81 E/E' Med: 13.70 E' Laterial: 8.05 E/E' Lat: 6.50 Right Ventricle TAPSE (mm): 16.00 Tricuspid Valve TR Pk Konstantin: 4.05 TR Pk Grad: 66.00 RA Press: 8.00 RVSP: 74.00 Great Vessels Aorta Ao Root-2D: 3.30 2.0-3.7 cm Ao Asc: 2.90 2.1-3.4 cm Pulmonary Valve PV Pk Konstantin: 0.76 Peak PV Grad: 2.00 Updated in Other Vendor System with Status of Final Tyrell Alaniz MD electronically signed on 08/14/2024 11:11:22 AM with status of Final
[2024-08-14 07:07] LABS: Basophils Percent Auto 0.1 % (0-2); Eosinophils Percent Auto 0.1 % (0-4); Hematocrit 27.8 % (37.0-47.0); Hemoglobin 8.6 g/dl (12.0-16.0); Imm Gran Abs Auto 0.08 X10*3/uL (0.00-0.03); Imm Gran Pct Auto 0.7 % (0.0-0.4); Lymphocytes Absolute Auto 0.7 X10*3/uL (1.2-4.9); Lymphocytes Percent Auto 5.7 % (20-40); Mean Corpuscular HGB Conc 30.9 g/dl (31.0-35.0); Mean Corpuscular Hemoglobin 26.6 pg (27.0-33.0); Mean Corpuscular Volume 86.1 fL (80.0-98.0); Mean Platelet Volume 9.2 fL (9.4-12.3); Monocytes Absolute Auto 0.7 X10*3/uL (0.1-1.2); Monocytes Percent Auto 5.5 % (2-11); Neutrophils Absolute Auto 10.5 x10*3/uL (2.0-8.3); Neutrophils Percent Auto 87.9 % (45-73); Platelet Count 764 X10*3/uL (160-400); Red Blood Count 3.23 X10*6/uL (4.20-5.50); Red Cell Distribution Width 16.9 % (11.0-16.0); White Blood Count 11.9 X10*3/uL (4.8-10.8)
[2024-08-14 07:16] LABS: B Type Natriuretic Peptide 1429 pg/mL (<100)
[2024-08-14 07:20] LABS: Anion Gap 9 (12-20); Blood Urea Nitrogen 23 mg/dL (9-16); Calcium 8.8 mg/dL (8.4-10.2); Carbon Dioxide 37 mmol/L (22-29); Chloride 95 mmol/L (96-108); Creatinine Clr Calc Pharmacy 47.3; Estimated Glomerular Filt Rate > 60; Glucose Random 243 mg/dL (60-115); Potassium 3.4 mmol/L (3.3-5.1); Sodium 138 mmol/L (135-145)
[2024-08-14] MEDS: Albuterol/Iprat 2.5/0.5MG 3 ML AMPUL.NEB INHALE ×4 (07:57→20:30)
--- NOTE | 2024-08-14 09:27 | PM.PNCARD ---
Subjective Subjective Date of Service: 08/14/24 Interval history: Discussed with patient and son using logging engineer. Patient states that she feels somewhat better. Still looks weak and frail. Lying in bed. She has pleuritic type chest pain with inspiration but improving. Review of Systems Review of Systems Yes all other systems are reviewed and are negative Constitutional: Reports as per HPI and Reports no additional constitutional complaints Eyes: Reports as per HPI and Denies no additional eye complaints Denies system reviewed and no additional complaints, except as documented and Reports as per HPI Cardiovascular: Reports as per HPI, Reports no additional cardiovascular complaints, Denies acrocyanosis, Denies cool extremities, Denies chest pain, Denies leg edema, Denies lightheadedness, Denies palpitations and Denies dyspnea Respiratory: Reports as per HPI, Denies no additional respiratory complaints and Denies dyspnea Gastrointestinal: Reports as per HPI and Denies no additional gastrointestinal complaints Genitourinary: Reports as per HPI Musculoskeletal: Reports no additional musculoskeletal complaints and Reports as per HPI Skin/Breast: Reports system reviewed and no additional complaints, except as docu Reports system reviewed and no additional complaints, except as documented and Reports as per HPI Psychiatric: Reports no additional psychiatric complaints and Reports as per HPI Endocrine: Reports no additional endocrine complaints, Reports as per HPI and Denies palpitations Hematologic/Lymphatic: Reports no additional hematologic/lymphatic complaints and Reports as per HPI Allergic/Immunologic: Reports no additional allergic/immunologic complaints and Reports as per HPI Physical Exam Vital Signs: Last Vital Signs Temp 96.5 F L 08/14/24 07:58 Pulse 90 08/14/24 07:58 Resp 20 08/14/24 07:58 BP 109/60 08/14/24 07:58 Pulse Ox 98 08/14/24 07:58 O2 Del Method Oxymask 08/14/24 04:00 O2 Flow Rate 10 08/14/24 04:00 BMI result Body Mass Index 19.3 Const General: comfortable, no acute distress, ill appearing and tired appearing Nutritional Appearance: underweight Orientation/consciousness: patient oriented x3 HEENT Other: Unremarkable Head: Yes normal to inspection Neck Neck: Yes normal visual inspection Chest Chest palpation & inspection: normal inspection of the chest Resp Auscultation: crackles Cardio Palpation: normal PMI Heart sounds: S1 normal heart sound present, S2 normal heart sound present, no gallops, no murmurs and no rubs GI Palpation (GI): Soft to palpation Back/Spine/Pelvis Other: unremarkable Skin General skin exam: no rashes or lesions noted Neuro General: patient oriented x3 Extrem General: Yes normal to inspection Psych Mental Status: mental status grossly normal Objective Labs and Meds 08/14/24 06:44 08/14/24 06:44 Lab results: Laboratory Results - last 24 hr 08/13/24 08/13/24 08/14/24 14:15 14:57 06:44 WBC 11.9 H RBC 3.23 L Hgb 8.6 L Hct 27.8 L MCV 86.1 MCH 26.6 L MCHC 30.9 L RDW 16.9 H Plt Count 764 H MPV 9.2 L Immature Gran % (Auto) 0.7 H Neut % (Auto) 87.9 H Lymph % (Auto) 5.7 L [place] % (Auto) 5.5 Eos % (Auto) 0.1 Baso % (Auto) 0.1 Lymph # (Auto) 0.7 L [place] # (Auto) 0.7 Eos # (Auto) 0.0 Baso # (Auto) 0.0 Abs Immat Gran (auto) 0.08 H Absolute Neuts (auto) 10.5 H Absolute Nucleated RBC 0.000 Nucleated RBC % (auto) 0.0 PT 16.9 H INR 1.4 H Sodium 138 Potassium 3.4 Chloride 95 L Carbon Dioxide 37 H Anion Gap 9 L BUN 23 H Creatinine 0.67 Estim Creat Clear Calc 47.3 Estimated GFR > 60 POC Glucose 243 H Random Glucose 243 H Calcium 8.8 B-Natriuretic Peptide 1429 H Progress Note: A&P Assessment and plan (1) Acute non-ST elevation myocardial infarction (NSTEMI): Status: Acute (2) Cor pulmonale: Status: Acute Plan CTA chest reported have interstitial lung disease. High sensitivity troponins are 13, 567, 437. Cardiac BNP 1095, 1641, 1606. Last echocardiogram from 01/2024-LVEF 55-60%. Severely increased right ventricular size. Severe pulmonary hypertension. Overall, most likely subacute worsening of chronic lung disease with secondary troponin elevation. Less likely primary cardiac dysfunction/plaque rupture but possible. With her age, frailty, advanced lung disease, no definitive cardiac options. Reasonable to keep her on Lovenox for 48 hours. She is also on aspirin and statins. Goals of care will need to be decided. Discussed with son. Discussed with Dr. Martin. Time Spent With Patient Time: Total time managing care of this patient today ____ minutes. Progress Note: Quality Stroke Does the patient have a stroke diagnosis?: No Procedures Date of Service Date of Service: 08/14/24
--- NOTE | 2024-08-14 09:39 | HO.PM.IMPN ---
Subjective Subjective Date of Service: 08/14/24 Interval History: seen and evaluated this morning feels better overall moved her bowel still on 10L O2, desat with minimal exertion having constipation no other events Review of Systems Review of Systems: Yes all other systems are reviewed and are negative Physical Exam Vital Signs: Vital Signs: Last Vital Signs Temp 96.5 F L 08/14/24 07:58 Pulse 90 08/14/24 07:58 Resp 20 08/14/24 07:58 BP 109/60 08/14/24 07:58 Pulse Ox 98 08/14/24 07:58 O2 Del Method Oxymask 08/14/24 04:00 O2 Flow Rate 10 08/14/24 04:00 BMI result Body Mass Index 19.3 Const: Other: Constitutional : interactive, frail looking, not in distress Cardiovascular : no JVP, no lower extremity edema Respiratory : bilateral chest movement, not in resp distress Gastrointestinal: soft, lax, Non tender Skin : Warm, Dry Neurological : Alert & oriented to self and place, No focal deficit Objective Data Active Medications Acetaminophen (Acetaminophen 325 Mg Tablet) 650 mg PO Q6H PRN PRN Reason: Pain, Mild 1-3,fever,headache Acetazolamide (Acetazolamide 250 Mg Tablet) 250 mg PO BID [facility] Albuterol Sulfate (Albuterol Sulfate (0.083%) 2.5 Mg/3 Ml Vial.Neb) 2.5 mg INHALE Q4H PRN PRN Reason: Shortness of Breath/Wheezing Albuterol/Ipratropium (Albuterol/Iprat 2.5/0.5mg 3 Ml Ampul.Neb) 3 ml INHALE RQ4H WHILE AWAKE [facility] Last Admin: 08/14/24 07:57 Dose: 3 ml Documented By: TIN Aspirin (Aspirin Enteric Coated 81 Mg Tablet.) 81 mg PO DAILY [facility] Last Admin: 08/13/24 08:31 Dose: 81 mg Documented By: RACHEL Atorvastatin Calcium (Atorvastatin Calcium 40 Mg Tablet) 40 mg PO BEDTIME [facility] Last Admin: 08/13/24 21:20 Dose: 40 mg Documented By: KUN Bisacodyl (Bisacodyl 5 Mg Tablet.) 10 mg PO DAILY [facility] Last Admin: 08/13/24 08:31 Dose: 10 mg Documented By: RACHEL Calcium Carbonate (Calcium Carbonate 750 Mg Tab.Chew) 750 mg PO Q4H PRN PRN Reason: Heartburn Docusate Sodium (Docusate Sodium 100 Mg Capsule) 100 mg PO BID [facility] Last Admin: 08/13/24 21:22 Dose: Not Given Documented By: KUN Non-Admin Reason: Patient Refused Duloxetine HCl (Duloxetine Hcl 60 Mg Capsule.Dr) 60 mg PO DAILY [facility] Last Admin: 08/13/24 08:33 Dose: 60 mg Documented By: RACHEL Enoxaparin Sodium (Enoxaparin Sodium 60 Mg/0.6 Ml Syringe) 50 mg SUBCUT Q12H [facility] Last Admin: 08/14/24 05:39 Dose: 50 mg Documented By: KUN Furosemide (Furosemide 40 Mg/4 Ml Vial) 40 mg IVPUSH DAILY [facility]; Protocol Gabapentin (Gabapentin 300 Mg Capsule) 300 mg PO BEDTIME [facility] Last Admin: 08/13/24 21:21 Dose: 300 mg Documented By: KUN Guaifenesin (Guaifenesin La 600 Mg Tab.Er.12h) 600 mg PO BID [facility] Last Admin: 08/13/24 21:24 Dose: 600 mg Documented By: KUN Guaifenesin (Guaifenesin 100 Mg/5 Ml 5 Ml Liquid) 5 ml PO Q4H PRN PRN Reason: Cough Last Admin: 08/12/24 23:24 Dose: 5 ml Documented By: JOSSE Insulin Glargine (Insulin Glargine,Hum.Rec.Anlog 100 Unit/Ml 10 Ml Vial) 10 unit SUBCUT DAILY@1300 [facility] Last Admin: 08/13/24 14:47 Dose: 10 unit Documented By: ZAIN Loratadine (Loratadine 10 Mg Tablet) 10 mg PO DAILY [facility] Last Admin: 08/13/24 08:33 Dose: 10 mg Documented By: RACHEL Losartan Potassium (Losartan Potassium 50 Mg Tablet) 50 mg PO DAILY [facility]; Protocol Last Admin: 08/13/24 08:30 Dose: 50 mg Documented By: RACHEL Magnesium Hydroxide (Milk Of Magnesia 30 Ml Oral.Susp) 30 ml PO DAILY PRN PRN Reason: Constipation Magnesium Oxide (Magnesium Oxide 400 Mg Tablet) 400 mg PO BEDTIME [facility] Last Admin: 08/13/24 21:20 Dose: 400 mg Documented By: KUN Melatonin (Melatonin 3 Mg Tablet) 6 mg PO BEDTIME PRN PRN Reason: Insomnia Methylprednisolone Sodium Succinate (Methylprednisolone Sod Succ 40 Mg/Ml Vial) 40 mg IVPUSH BID [facility] Last Admin: 08/13/24 21:19 Dose: 40 mg Documented By: KUN Morphine Sulfate (Morphine Sulfate 2 Mg/Ml Cartridge) 0.5 mg IVPUSH Q4H PRN; Protocol PRN Reason: Chest Pain Last Admin: 08/12/24 17:22 Dose: 0.5 mg Documented By: TREE Mycophenolate Mofetil (Mycophenolate Mofetil 250 Mg Capsule) 1,000 mg PO BID [facility] Last Admin: 08/13/24 21:18 Dose: 1,000 mg Documented By: KUN Ondansetron HCl (Ondansetron Hcl 4 Mg/2 Ml Vial) 4 mg IVPUSH Q8H PRN PRN Reason: Nausea and Vomiting Senna (Sennosides 8.6 Mg Tablet) 17.2 mg PO BEDTIME [facility] Last Admin: 08/13/24 21:19 Dose: 17.2 mg Documented By: KUN Sodium Chloride (0.9 % Sodium Chloride Flush 3 Ml Syringe) 3 ml IVFLUSH QSHIFT [facility] Last Admin: 08/13/24 21:22 Dose: 3 ml Documented By: KUN Tamsulosin HCl (Tamsulosin Hcl 0.4 Mg Capsule) 0.4 mg PO BEDTIME [facility] Last Admin: 08/13/24 21:22 Dose: Not Given Documented By: KUN Non-Admin Reason: Patient Refused Tramadol HCl (Tramadol Hcl 50 Mg Tablet) 50 mg PO BEDTIME [facility] Last Admin: 08/13/24 21:19 Dose: 50 mg Documented By: KUN Vitamin D (Cholecalciferol (Vitamin D3) 25 Mcg Tablet) 50 mcg PO BEDTIME [facility] Last Admin: 08/13/24 21:19 Dose: 50 mcg Documented By: KUN Labs 08/14/24 06:44 08/14/24 06:44 Labs: Laboratory Results - last 24 hr 08/13/24 08/13/24 08/14/24 14:15 14:57 06:44 MCV 86.1 MCH 26.6 L MCHC 30.9 L RDW 16.9 H Plt Count 764 H MPV 9.2 L Immature Gran % (Auto) 0.7 H Neut % (Auto) 87.9 H Lymph % (Auto) 5.7 L [place] % (Auto) 5.5 Eos % (Auto) 0.1 Baso % (Auto) 0.1 Lymph # (Auto) 0.7 L [place] # (Auto) 0.7 Eos # (Auto) 0.0 Baso # (Auto) 0.0 Abs Immat Gran (auto) 0.08 H Absolute Neuts (auto) 10.5 H Absolute Nucleated RBC 0.000 Nucleated RBC % (auto) 0.0 PT 16.9 H INR 1.4 H Anion Gap 9 L Estim Creat Clear Calc 47.3 Estimated GFR > 60 POC Glucose 243 H Random Glucose 243 H Calcium 8.8 B-Natriuretic Peptide 1429 H Microbiology Microbiology Results: Microbiology 08/12/24 14:23 Blood Culture - Preliminary Blood - Venous No growth after 24 hours. 08/12/24 14:10 Blood Culture - Preliminary Blood - Venous No growth after 24 hours. Assessment and Plan (1) Acute on chronic hypoxic respiratory failure: Status: Acute (2) Acute non-ST elevation myocardial infarction (NSTEMI): Status: Acute (3) Interstitial pulmonary disease, unspecified: Status: Acute (4) Chronic obstructive pulmonary disease, unspecified: Status: Acute Plan 83-year-old woman admitted with NSTEMI and acute congestive heart failure NSTEMI Therapeutic Lovenox to finish 48 hours Cardiology input appreciated, medical management only Echocardiogram pending Aspirin and statin acute on chronic hypoxic respiratory failure 2/2 Heart failure with preserved ejection fraction IV Lasix , decrease to daily Monitor daily weights Strict intake and output Asthma/COPD overlap syndrome dry cough antitussin Continue oxygen supplementation to keep oxygen saturation greater than 90% Constipation no BM in more than 2 days senna, colace, bisacodyl Hypertension Stable blood pressure continue losartan Diabetes mellitus type 2 Sliding scale, ADA diet Chronic thrombocytosis baseline DVT prophylaxis with therapeutic Lovenox Full code The patient will need overnight hospital stay for weaning down O@ and finishing NSTEMI treatment Quality Stroke Does the patient have a stroke diagnosis?: No VTE Prior VTE?: No VTE Risk Level:: Medical - moderate - high VTE Device Contraindication: Treatment Not Indicated VTE Drug Contraindication: N/A - Med Ordered
[2024-08-14] MEDS: methylPREDNISolone Sod Succ 40 MG/ML VIAL IVPUSH ×2 (09:54→22:58)
[2024-08-14] MEDS: Furosemide 40 MG/4 ML VIAL IVPUSH (09:55)
[2024-08-14] MEDS: 0.9 % Sodium Chloride Flush 3 ML SYRINGE IVFLUSH ×2 (10:04→18:46)
[2024-08-14] MEDS: Aspirin Enteric Coated 81 MG TABLET.DR PO (10:48)
[2024-08-14] MEDS: Losartan Potassium 50 MG TABLET PO (10:48)
[2024-08-14] MEDS: DULoxetine HCl 60 MG CAPSULE.DR PO (10:48)
[2024-08-14] MEDS: mycophenolate mofetiL 250 MG CAPSULE 1000 MG PO ×2 (10:49→23:08)
[2024-08-14] MEDS: Loratadine 10 MG TABLET PO (10:49)
[2024-08-14] MEDS: guaiFENesin LA 600 MG TAB.ER.12H PO ×2 (10:49→22:56)
[2024-08-14] MEDS: bisacodyL 5 MG TABLET.DR 10 MG PO (10:49)
[2024-08-14] MEDS: acetaZOLAMIDE 250 MG TABLET PO ×2 (10:49→22:56)
[2024-08-14] MEDS: Docusate Sodium 100 MG CAPSULE PO ×2 (10:49→22:56)
[2024-08-14 11:50] LABS: Glucose, Whole Blood 309 mg/dL (60-115)
[2024-08-14] MEDS: Insulin Lispro 100 UNIT/ML 3 ML VIAL SUBCUT ×3 (12:08→22:58)
[2024-08-14] MEDS: Insulin Glargine,Hum.rec.anlog 100 UNIT/ML 10 ML VIAL 10 UNIT SUBCUT (12:09)
[2024-08-14] MEDS: guaiFENesin 100 MG/5 ML 5 ML LIQUID PO (14:42)
--- NOTE | 2024-08-14 15:49 | MHC.CM.PN ---
PER PN, PT NOT MEDICALLY CLEARED, CONTINUING TREATMENT FOR NSTEMI AND WEANING O2. DCP REMAINS HOME WITH RESUMPTION OF MEDIA ASSOCIATE/FAMILY SUPPORT VIA BLS TRANSPORT
[2024-08-14 16:45] LABS: Glucose, Whole Blood 170 mg/dL (60-115)
[2024-08-14 20:37] LABS: Glucose, Whole Blood 295 mg/dL (60-115)
[2024-08-14] MEDS: Albumin Human 25 % 100 ML IV (21:35)
[2024-08-14 21:50] LABS: Lactic Acid 3.1 mmol/L (0.5-2.0)
--- NOTE | 2024-08-14 21:51 | PM.EVENT ---
Event Note Date of Service: 08/14/24 Event Note: Blood pressure soft due to ?over-diuresis. No sepsis Time Spent With Patient Time: Total time managing care of this patient today ____ minutes.
[2024-08-14] MEDS: Azithromycin 500 MG in 0.9 % Sodium Chloride 250 ML 125 MG IV (22:52)
[2024-08-14] MEDS: Sennosides 8.6 MG TABLET 17.2 MG PO (22:53)
[2024-08-14] MEDS: Gabapentin 300 MG CAPSULE PO (22:56)
[2024-08-14] MEDS: Cholecalciferol (Vitamin D3) 25 MCG TABLET 50 MCG PO (22:56)
[2024-08-14] MEDS: Tamsulosin HCL 0.4 MG CAPSULE PO (22:56)
[2024-08-14] MEDS: Atorvastatin Calcium 40 MG TABLET PO (22:56)
[2024-08-14] MEDS: Magnesium Oxide 400 MG TABLET PO (22:56)
[2024-08-14] MEDS: traMADoL HCL 50 MG TABLET PO (23:07)
[2024-08-14 23:13] LABS: Reflex Lactate? Lactic Acid Added
[2024-08-15] VITALS (13 sets, daily range): BP systolic 98–121; BP diastolic 53–72; PULSE 81–98; RESP 18–28; TEMP 35.9–36.7; O2SAT 9–100
[2024-08-15 00:09] LABS: ~Lactic Acid-LAB USE ONLY 2.7 mmol/L (0.5-2.0)
[2024-08-15] MEDS: Albumin Human 25 % 100 ML IV (02:08)
[2024-08-15] MEDS: guaiFENesin 100 MG/5 ML 5 ML LIQUID PO (02:08)
[2024-08-15] MEDS: 0.9 % Sodium Chloride Flush 3 ML SYRINGE IVFLUSH ×3 (02:13→14:37)
[2024-08-15] MEDS: Enoxaparin Sodium 60 MG/0.6 ML SYRINGE 50 MG SUBCUT ×2 (06:10→14:37)
[2024-08-15 07:34] LABS: Glucose, Whole Blood 138 mg/dL (60-115)
[2024-08-15 07:48] LABS: MANUAL DIFF FLAG NO
[2024-08-15 07:51] LABS: Basophils Percent Auto 0.1 % (0-2); Hematocrit 26.2 % (37.0-47.0); Hemoglobin 7.8 g/dl (12.0-16.0); Imm Gran Abs Auto 0.06 X10*3/uL (0.00-0.03); Imm Gran Pct Auto 0.5 % (0.0-0.4); Lymphocytes Percent Auto 8.1 % (20-40); Mean Corpuscular HGB Conc 29.8 g/dl (31.0-35.0); Mean Corpuscular Hemoglobin 26.1 pg (27.0-33.0); Mean Corpuscular Volume 87.6 fL (80.0-98.0); Mean Platelet Volume 9.1 fL (9.4-12.3); Monocytes Absolute Auto 0.6 X10*3/uL (0.1-1.2); Monocytes Percent Auto 4.7 % (2-11); Neutrophils Absolute Auto 10.2 x10*3/uL (2.0-8.3); Neutrophils Percent Auto 86.6 % (45-73); Platelet Count 751 X10*3/uL (160-400); Red Blood Count 2.99 X10*6/uL (4.20-5.50); Red Cell Distribution Width 16.9 % (11.0-16.0); White Blood Count 11.7 X10*3/uL (4.8-10.8)
[2024-08-15] MEDS: Albuterol/Iprat 2.5/0.5MG 3 ML AMPUL.NEB INHALE ×4 (07:52→20:56)
[2024-08-15 08:06] LABS: Anion Gap 13 (12-20); Blood Urea Nitrogen 25 mg/dL (9-16); Calcium 9.2 mg/dL (8.4-10.2); Carbon Dioxide 33 mmol/L (22-29); Chloride 97 mmol/L (96-108); Creatinine Clr Calc Pharmacy 52.8; Estimated Glomerular Filt Rate > 60; Glucose Random 143 mg/dL (60-115); Iron 19 mcg/dL (30-160); Percent Iron Saturation 9 % (15-50); Potassium 3.3 mmol/L (3.3-5.1); Sodium 140 mmol/L (135-145); Total Iron Binding Capacity 220 mcg/dL (228-428); Unsaturated Iron Binding 201 ug/dL
[2024-08-15] MEDS: Aspirin Enteric Coated 81 MG TABLET.DR PO (11:37)
[2024-08-15] MEDS: methylPREDNISolone Sod Succ 40 MG/ML VIAL IVPUSH ×2 (11:37→22:51)
[2024-08-15] MEDS: Benzonatate 100 MG CAPSULE 200 MG PO ×3 (11:37→22:47)
[2024-08-15] MEDS: Furosemide 40 MG/4 ML VIAL IVPUSH (11:37)
[2024-08-15] MEDS: mycophenolate mofetiL 250 MG CAPSULE 1000 MG PO ×2 (11:37→22:50)
[2024-08-15] MEDS: Docusate Sodium 100 MG CAPSULE PO ×2 (11:38→22:44)
[2024-08-15] MEDS: DULoxetine HCl 60 MG CAPSULE.DR PO (11:38)
[2024-08-15] MEDS: Loratadine 10 MG TABLET PO (11:38)
[2024-08-15] MEDS: bisacodyL 5 MG TABLET.DR 10 MG PO (11:38)
[2024-08-15] MEDS: guaiFENesin DM 600/30 1 TAB TAB.ER.12H PO ×2 (11:38→22:45)
[2024-08-15] MEDS: Losartan Potassium 50 MG TABLET PO (11:39)
[2024-08-15] MEDS: Insulin Lispro 100 UNIT/ML 3 ML VIAL SUBCUT ×3 (12:01→22:43)
[2024-08-15] MEDS: Sodium Ferric Gluconat/Sucrose 125 MG in 0.9 % Sodium Chloride 100 ML 100 MG IV (12:03)
[2024-08-15 12:04] LABS: Glucose, Whole Blood 162 mg/dL (60-115)
--- NOTE | 2024-08-15 12:16 | P.PNIM_ITS ---
Subjective Subjective Date of Service: 08/15/24 Interval History: seen and evaluated this morning feels better overall coughing, SOB and dyspneic weaned down to 7 O2, desat with minimal exertion no other events Review of Systems Review of Systems: Yes all other systems are reviewed and are negative Physical Exam 2 Vital Signs: Vital Signs: Last Vital Signs Temp 97.6 F 08/15/24 08:00 Pulse 83 08/15/24 11:15 Resp 19 08/15/24 11:15 BP 109/68 08/15/24 11:39 Pulse Ox 93 08/15/24 08:00 O2 Del Method Oxymask 08/15/24 08:00 O2 Flow Rate 5 08/15/24 08:00 BMI result Body Mass Index 19.3 Const: Other: Constitutional : interactive, frail looking, in distress Cardiovascular : no JVP, no lower extremity edema Respiratory : bilateral chest movement,decrease air entry to basis, crackles , expiratory wheezes,in mod resp distress using accessory muscles Gastrointestinal: soft, lax, Non tender Skin : Warm, Dry Neurological : Alert & oriented to self and place, No focal deficit Objective Data Active Medications Acetaminophen (Acetaminophen 325 Mg Tablet) 650 mg PO Q6H PRN PRN Reason: Pain, Mild 1-3,fever,headache Albuterol Sulfate (Albuterol Sulfate (0.083%) 2.5 Mg/3 Ml Vial.Neb) 2.5 mg INHALE Q4H PRN PRN Reason: Shortness of Breath/Wheezing Albuterol/Ipratropium (Albuterol/Iprat 2.5/0.5mg 3 Ml Ampul.Neb) 3 ml INHALE RQ4H WHILE AWAKE [facility] Last Admin: 08/15/24 11:15 Dose: 3 ml Documented By: EDELMIRA Aspirin (Aspirin Enteric Coated 81 Mg Tablet.) 81 mg PO DAILY [facility] Last Admin: 08/15/24 11:37 Dose: 81 mg Documented By: MIAH Atorvastatin Calcium (Atorvastatin Calcium 40 Mg Tablet) 40 mg PO BEDTIME [facility] Last Admin: 08/14/24 22:56 Dose: 40 mg Documented By: LEN Benzonatate (Benzonatate 100 Mg Capsule) 200 mg PO TID [facility] Last Admin: 08/15/24 11:37 Dose: 200 mg Documented By: MIAH Bisacodyl (Bisacodyl 5 Mg Tablet.) 10 mg PO DAILY [facility] Last Admin: 08/15/24 11:38 Dose: 10 mg Documented By: MIAH Calcium Carbonate (Calcium Carbonate 750 Mg Tab.Chew) 750 mg PO Q4H PRN PRN Reason: Heartburn Docusate Sodium (Docusate Sodium 100 Mg Capsule) 100 mg PO BID [facility] Last Admin: 08/15/24 11:38 Dose: 100 mg Documented By: MIAH Duloxetine HCl (Duloxetine Hcl 60 Mg Capsule.) 60 mg PO DAILY [facility] Last Admin: 08/15/24 11:38 Dose: 60 mg Documented By: MIAH Enoxaparin Sodium (Enoxaparin Sodium 60 Mg/0.6 Ml Syringe) 50 mg SUBCUT Q12H [facility] Stop: 08/15/24 20:00 Last Admin: 08/15/24 06:10 Dose: 50 mg Documented By: FRANKY Furosemide (Furosemide 40 Mg/4 Ml Vial) 40 mg IVPUSH DAILY [facility]; Protocol Last Admin: 08/15/24 11:37 Dose: 40 mg Documented By: MIAH Gabapentin (Gabapentin 300 Mg Capsule) 300 mg PO BEDTIME [facility] Last Admin: 08/14/24 22:56 Dose: 300 mg Documented By: LEN Guaifenesin (Guaifenesin 100 Mg/5 Ml 5 Ml Liquid) 5 ml PO Q4H PRN PRN Reason: Cough Last Admin: 08/15/24 02:08 Dose: 5 ml Documented By: FRANKY Guaifenesin/Dextromethorphan (Guaifenesin Dm 600/30 1 Tab Tab.Er.12h) 1 tab PO BID [facility] Last Admin: 08/15/24 11:38 Dose: 1 tab Documented By: MIAH Ferric Sodium Gluconate Complex 125 mg/ Sodium Chloride 110 mls @ 100 mls/hr IV DAILY [facility] Stop: 08/17/24 10:05 Last Admin: 08/15/24 12:03 Dose: 100 mls/hr Documented By: MIAH Insulin Glargine (Insulin Glargine,Hum.Rec.Anlog 100 Unit/Ml 10 Ml Vial) 10 unit SUBCUT DAILY@1300 [facility] Last Admin: 08/14/24 12:09 Dose: 10 unit Documented By: IVORY Insulin Human Lispro (Insulin Lispro 100 Unit/Ml 3 Ml Vial) 0 unit SUBCUT QIDACHS [facility]; Protocol Last Admin: 08/15/24 12:01 Dose: 2 unit Documented By: MIAH Loratadine (Loratadine 10 Mg Tablet) 10 mg PO DAILY [facility] Last Admin: 08/15/24 11:38 Dose: 10 mg Documented By: MIAH Losartan Potassium (Losartan Potassium 50 Mg Tablet) 50 mg PO DAILY [facility]; Protocol Last Admin: 08/15/24 11:39 Dose: 50 mg Documented By: MIAH Magnesium Hydroxide (Milk Of Magnesia 30 Ml Oral.Susp) 30 ml PO DAILY PRN PRN Reason: Constipation Magnesium Oxide (Magnesium Oxide 400 Mg Tablet) 400 mg PO BEDTIME [facility] Last Admin: 08/14/24 22:56 Dose: 400 mg Documented By: LEN Melatonin (Melatonin 3 Mg Tablet) 6 mg PO BEDTIME PRN PRN Reason: Insomnia Methylprednisolone Sodium Succinate (Methylprednisolone Sod Succ 40 Mg/Ml Vial) 40 mg IVPUSH BID [facility] Last Admin: 08/15/24 11:37 Dose: 40 mg Documented By: MIAH Morphine Sulfate (Morphine Sulfate 2 Mg/Ml Cartridge) 0.5 mg IVPUSH Q4H PRN; Protocol PRN Reason: Chest Pain Last Admin: 08/12/24 17:22 Dose: 0.5 mg Documented By: TREE Mycophenolate Mofetil (Mycophenolate Mofetil 250 Mg Capsule) 1,000 mg PO BID [facility] Last Admin: 08/15/24 11:37 Dose: 1,000 mg Documented By: MIAH Ondansetron HCl (Ondansetron Hcl 4 Mg/2 Ml Vial) 4 mg IVPUSH Q8H PRN PRN Reason: Nausea and Vomiting Senna (Sennosides 8.6 Mg Tablet) 17.2 mg PO BEDTIME [facility] Last Admin: 08/14/24 22:53 Dose: 17.2 mg Documented By: LEN Sodium Chloride (0.9 % Sodium Chloride Flush 3 Ml Syringe) 3 ml IVFLUSH QSHIFT [facility] Last Admin: 08/15/24 11:36 Dose: 3 ml Documented By: MIAH Tamsulosin HCl (Tamsulosin Hcl 0.4 Mg Capsule) 0.4 mg PO BEDTIME [facility] Last Admin: 08/14/24 22:56 Dose: 0.4 mg Documented By: LEN Tramadol HCl (Tramadol Hcl 50 Mg Tablet) 50 mg PO BEDTIME [facility] Last Admin: 08/14/24 23:07 Dose: 50 mg Documented By: LEN Vitamin D (Cholecalciferol (Vitamin D3) 25 Mcg Tablet) 50 mcg PO BEDTIME [facility] Last Admin: 08/14/24 22:56 Dose: 50 mcg Documented By: LEN Labs 08/15/24 07:23 08/15/24 07:23 Labs: Laboratory Results - last 24 hr 08/14/24 08/14/24 08/14/24 16:36 20:33 21:08 MCV MCH MCHC RDW Plt Count MPV Immature Gran % (Auto) Neut % (Auto) Lymph % (Auto) [place] % (Auto) Eos % (Auto) Baso % (Auto) Lymph # (Auto) [place] # (Auto) Eos # (Auto) Baso # (Auto) Abs Immat Gran (auto) Absolute Neuts (auto) Absolute Nucleated RBC Nucleated RBC % (auto) Hold Purple Top Hold Blue Top Anion Gap Estim Creat Clear Calc Estimated GFR POC Glucose 170 H 295 H Random Glucose Lactic Acid 3.1 H* Lactic Acid F/U @ 2Hr Calcium Iron TIBC % Saturation Unsat Iron Binding Hold Yellow Top 08/14/24 08/14/24 08/15/24 22:17 23:31 07:23 MCV 87.6 MCH 26.1 L MCHC 29.8 L RDW 16.9 H Plt Count 751 H MPV 9.1 L Immature Gran % (Auto) 0.5 H Neut % (Auto) 86.6 H Lymph % (Auto) 8.1 L [place] % (Auto) 4.7 Eos % (Auto) 0.0 Baso % (Auto) 0.1 Lymph # (Auto) 1.0 L [place] # (Auto) 0.6 Eos # (Auto) 0.0 Baso # (Auto) 0.0 Abs Immat Gran (auto) 0.06 H Absolute Neuts (auto) 10.2 H Absolute Nucleated RBC 0.000 Nucleated RBC % (auto) 0.0 Hold Purple Top SEE NOTE Hold Blue Top SEE NOTE Anion Gap 13 Estim Creat Clear Calc 52.8 Estimated GFR > 60 POC Glucose Random Glucose 143 H Lactic Acid Lactic Acid F/U @ 2Hr 2.7 H* Calcium 9.2 Iron 19 L TIBC 220 L % Saturation 9 L Unsat Iron Binding 201 Hold Yellow Top See Note 08/15/24 08/15/24 07:29 11:57 MCV MCH MCHC RDW Plt Count MPV Immature Gran % (Auto) Neut % (Auto) Lymph % (Auto) [place] % (Auto) Eos % (Auto) Baso % (Auto) Lymph # (Auto) [place] # (Auto) Eos # (Auto) Baso # (Auto) Abs Immat Gran (auto) Absolute Neuts (auto) Absolute Nucleated RBC Nucleated RBC % (auto) Hold Purple Top Hold Blue Top Anion Gap Estim Creat Clear Calc Estimated GFR POC Glucose 138 H 162 H Random Glucose Lactic Acid Lactic Acid F/U @ 2Hr Calcium Iron TIBC % Saturation Unsat Iron Binding Hold Yellow Top Microbiology Microbiology Results: Microbiology 08/12/24 14:23 Blood Culture - Preliminary Blood - Venous No growth after 48 hours. 08/12/24 14:10 Blood Culture - Preliminary Blood - Venous No growth after 48 hours. Assessment and Plan (1) Acute on chronic hypoxic respiratory failure: Status: Acute (2) Acute non-ST elevation myocardial infarction (NSTEMI): Status: Acute (3) Interstitial pulmonary disease, unspecified: Status: Acute (4) Chronic obstructive pulmonary disease, unspecified: Status: Acute (5) Acute on chronic anemia: Status: Acute (6) Acute heart failure with preserved ejection fraction (HFpEF): Status: Acute Plan 83-year-old woman admitted with NSTEMI and acute congestive heart failure NSTEMI Therapeutic Lovenox finished 48 hours Cardiology input appreciated, medical management only Echocardiogram ejection fraction is between 60-65%. Severely increased right ventricular cavity size. Severe pulmonary hypertension Aspirin and statin acute on chronic hypoxic respiratory failure 2/2 Heart failure with preserved ejection fraction Increase Lasix Monitor daily weights Strict intake and output Acute on chronic hypoxia 2/2 Atelactasis\pneumonia Repeat CXR 08/15 showing worsening LLL infiltrates cover with IV Antibiotic of Azithromycin and Ceftriaxone wean O2 as tolerated check viral panel cough medicine Acute on chronic anemia check occult Low iron stores, give Iron supplement repeat H&H, consider transfusion of dropping\remains below 8 LActic acidosis , tachycardia likely from nebulizers and hypoxia not due to severe sepsis Asthma/COPD overlap syndrome dry cough antitussin Continue oxygen supplementation to keep oxygen saturation greater than 90% Constipation no BM in more than 2 days senna, colace, bisacodyl Hypertension Stable blood pressure continue losartan Diabetes mellitus type 2 Sliding scale, ADA diet Chronic thrombocytosis baseline DVT prophylaxis with therapeutic Lovenox Full code The patient will need overnight hospital stay for weaning down O2 and finishing NSTEMI treatment Quality Stroke Does the patient have a stroke diagnosis?: No VTE Prior VTE?: No VTE Risk Level:: Medical - moderate - high VTE Device Contraindication: Treatment Not Indicated VTE Drug Contraindication: N/A - Med Ordered
[2024-08-15 14:15] LABS: Hemoglobin 8.4 g/dl (12.0-16.0); Mean Corpuscular Hemoglobin 26.3 pg (27.0-33.0); Mean Corpuscular Volume 87.8 fL (80.0-98.0); Mean Platelet Volume 9.3 fL (9.4-12.3); Platelet Count 793 X10*3/uL (160-400); Red Blood Count 3.19 X10*6/uL (4.20-5.50); Red Cell Distribution Width 16.8 % (11.0-16.0); White Blood Count 11.9 X10*3/uL (4.8-10.8)
[2024-08-15] MEDS: Insulin Glargine,Hum.rec.anlog 100 UNIT/ML 10 ML VIAL 10 UNIT SUBCUT (14:37)
[2024-08-15 16:37] LABS: Glucose, Whole Blood 186 mg/dL (60-115)
[2024-08-15 20:09] LABS: Glucose, Whole Blood 221 mg/dL (60-115)
[2024-08-15] MEDS: Atorvastatin Calcium 40 MG TABLET PO (22:45)
[2024-08-15] MEDS: Gabapentin 300 MG CAPSULE PO (22:47)
[2024-08-15] MEDS: Sennosides 8.6 MG TABLET 17.2 MG PO (22:48)
[2024-08-15] MEDS: traMADoL HCL 50 MG TABLET PO (22:50)
[2024-08-15] MEDS: Magnesium Oxide 400 MG TABLET PO (22:50)
[2024-08-15] MEDS: Cholecalciferol (Vitamin D3) 25 MCG TABLET 50 MCG PO (22:50)
[2024-08-15] MEDS: Tamsulosin HCL 0.4 MG CAPSULE PO (22:50)
[2024-08-16] VITALS (12 sets, daily range): BP systolic 98–116; BP diastolic 48–70; PULSE 75–93; RESP 16–22; TEMP 36.3–37.3; O2SAT 90–100
[2024-08-16 07:02] LABS: MANUAL DIFF FLAG NO
[2024-08-16 07:07] LABS: Basophils Percent Auto 0.1 % (0-2); Eosinophils Percent Auto 0.1 % (0-4); Hematocrit 28.8 % (37.0-47.0); Hemoglobin 8.7 g/dl (12.0-16.0); Imm Gran Abs Auto 0.06 X10*3/uL (0.00-0.03); Imm Gran Pct Auto 0.4 % (0.0-0.4); Lymphocytes Percent Auto 6.8 % (20-40); Mean Corpuscular HGB Conc 30.2 g/dl (31.0-35.0); Mean Corpuscular Hemoglobin 26.1 pg (27.0-33.0); Mean Corpuscular Volume 86.5 fL (80.0-98.0); Mean Platelet Volume 9.3 fL (9.4-12.3); Monocytes Absolute Auto 0.6 X10*3/uL (0.1-1.2); Monocytes Percent Auto 4.5 % (2-11); Neutrophils Absolute Auto 12.3 x10*3/uL (2.0-8.3); Neutrophils Percent Auto 88.1 % (45-73); Platelet Count 757 X10*3/uL (160-400); Red Blood Count 3.33 X10*6/uL (4.20-5.50); Red Cell Distribution Width 16.6 % (11.0-16.0)
[2024-08-16 07:22] LABS: Anion Gap 11 (12-20); Blood Urea Nitrogen 24 mg/dL (9-16); Calcium 9.3 mg/dL (8.4-10.2); Carbon Dioxide 34 mmol/L (22-29); Chloride 99 mmol/L (96-108); Creatinine Clr Calc Pharmacy 55.6; Estimated Glomerular Filt Rate > 60; Glucose Random 127 mg/dL (60-115); Potassium 3.4 mmol/L (3.3-5.1); Sodium 141 mmol/L (135-145)
[2024-08-16 07:29] LABS: B Type Natriuretic Peptide 1403 pg/mL (<100)
[2024-08-16 07:49] LABS: Glucose, Whole Blood 151 mg/dL (60-115)
[2024-08-16] MEDS: Albuterol/Iprat 2.5/0.5MG 3 ML AMPUL.NEB INHALE ×4 (07:51→20:32)
--- NOTE | 2024-08-16 07:54 | P.CDIM_ITS ---
PROVIDER RESPONSE TEXT: To clarify, the appropriate diagnosis supported by the clinical indicators: Diabetes mellitus Type 2 with hyperglycemia: probable QUERY TEXT: PHYSICIAN'S DOCUMENTATION REQUEST Date of Query: 08/15/2024 05:53 AM EST Patient Name: Georgie Wiseman Admit Date: 08/12/2024 Dear Cynthia Martin MD, A review of the medical record indicates additional documentation may be needed. Please review below and update the documentation accordingly. Clinical Indicators: LAB FINDINGS: POC glucose 309 H DM 2 Insulin Please clarify is there is a diagnosis that correlates with these lab findings: Diabetes mellitus Type 2 with hyperglycemia possible, suspected, probable, resolved Other specified Other (explain) Clinically unable to determine (explain) Thank you, Marge Singletary, CCS, CDIS Use of terms such as suspected, likely, concern for, or probable (associated with a specific diagnosi s that is being evaluated, monitored, or treated as if it exists) are acceptable and can be coded in the inpatient se tting, when documented at the time of discharge. Please use your independent medical judgment in providing your response. THIS QUERY IS PART OF THE PERMANENT MEDICAL RECORD
--- NOTE | 2024-08-16 07:54 | P.CDIM_ITS ---
PROVIDER RESPONSE TEXT: To clarify, the appropriate diagnosis supported by the clinical indicators: COPD QUERY TEXT: PHYSICIAN'S DOCUMENTATION REQUEST Date of Query: 08/15/2024 05:56 AM EST Patient Name: Georgie Wiseman Admit Date: 08/12/2024 Dear Cynthia Martin MD, A review of the medical record indicates additional documentation may be needed. Please review below and update the documentation accordingly. Clinical Indicators: ED & H&P - COPD, cough, short of breath, difficulty breathing, hypoxic. RR 25, given Solumedrol, Albuterol Progress notes within the Plan: COPD, antitussin, oxygen supplement to keep oxygen sat greater than 9 0% Based on the above, could you clarify any further specifics to the documented COPD: COPD in exacerbation possible, probable, suspected COPD Other (explain) Clinically unable to determine (explain) Thank you, Marge Singletary, CCS, CDIS Use of terms such as suspected, likely, concern for, or probable (associated with a specific diagnosi s that is being evaluated, monitored, or treated as if it exists) are acceptable and can be coded in the inpatient se tting, when documented at the time of discharge. Please use your independent medical judgment in providing your response. THIS QUERY IS PART OF THE PERMANENT MEDICAL RECORD
[2024-08-16 10:13] LABS: Adenovirus PCR Not Detected (Not Detect.); Bordetella parapertussis PCR Not Detected (Not Detect.); Bordetella pertussis PCR Not Detected (Not Detect.); Chlamydia pneumoniae PCR Not Detected (Not Detect.); Coronavirus 229E PCR Not Detected (Not Detect.); Coronavirus HKU1 PCR Not Detected (Not Detect.); Coronavirus NL63 PCR Not Detected (Not Detect.); Coronavirus OC43 PCR Not Detected (Not Detect.); Human metapneumovirus PCR Not Detected (Not Detect.); Influenza A PCR Not Detected (Not Detect.); Influenza B PCR Not Detected (Not Detect.); Mycoplasma pneumoniae PCR Not Detected (Not Detect.); Parainfluenza 1 PCR Not Detected (Not Detect.); Parainfluenza 2 PCR Not Detected (Not Detect.); Parainfluenza 3 PCR Not Detected (Not Detect.); Parainfluenza 4 PCR Not Detected (Not Detect.); RSV PCR Not Detected (Not Detect.); Rhino/Enterovirus PCR Not Detected (Not Detect.)
[2024-08-16 10:26] LABS: SARS-CoV-2 PCR Not Detected (Not Detect.)
[2024-08-16] MEDS: Docusate Sodium 100 MG CAPSULE PO ×2 (10:45→22:44)
[2024-08-16] MEDS: Benzonatate 100 MG CAPSULE 200 MG PO ×3 (10:46→22:44)
[2024-08-16] MEDS: Loratadine 10 MG TABLET PO (10:46)
[2024-08-16] MEDS: Aspirin Enteric Coated 81 MG TABLET.DR PO (10:46)
[2024-08-16] MEDS: mycophenolate mofetiL 250 MG CAPSULE 1000 MG PO ×2 (10:46→22:45)
[2024-08-16] MEDS: bisacodyL 5 MG TABLET.DR 10 MG PO (10:46)
[2024-08-16] MEDS: Losartan Potassium 50 MG TABLET PO (10:46)
[2024-08-16] MEDS: DULoxetine HCl 60 MG CAPSULE.DR PO (10:46)
[2024-08-16] MEDS: guaiFENesin DM 600/30 1 TAB TAB.ER.12H PO ×2 (10:46→22:45)
[2024-08-16] MEDS: cefTRIAXone sodium 1 GM VIAL IVPUSH (10:46)
[2024-08-16] MEDS: Furosemide 40 MG/4 ML VIAL IVPUSH (10:47)
[2024-08-16] MEDS: methylPREDNISolone Sod Succ 40 MG/ML VIAL IVPUSH ×2 (10:47→22:45)
[2024-08-16] MEDS: Azithromycin 500 MG in 0.9 % Sodium Chloride 250 ML 125 MG IV (10:47)
[2024-08-16] MEDS: 0.9 % Sodium Chloride Flush 3 ML SYRINGE IVFLUSH ×4 (10:48→22:54)
[2024-08-16 11:33] LABS: Glucose, Whole Blood 233 mg/dL (60-115)
[2024-08-16] MEDS: Insulin Glargine,Hum.rec.anlog 100 UNIT/ML 10 ML VIAL 10 UNIT SUBCUT (11:53)
[2024-08-16] MEDS: Insulin Lispro 100 UNIT/ML 3 ML VIAL SUBCUT ×3 (11:53→22:45)
[2024-08-16] MEDS: Sodium Ferric Gluconat/Sucrose 125 MG in 0.9 % Sodium Chloride 100 ML 100 MG IV (11:53)
--- NOTE | 2024-08-16 14:03 | MHC.CM.PN ---
Per rounds, pt. is not ready for DC. She requires continued tx for NSTEMI and to wean down on O2. CM to follow and assist with DCP.
--- NOTE | 2024-08-16 15:05 | HO.PM.IMPN ---
Subjective Subjective Date of Service: 08/16/24 Interval History: seen and evaluated this morning feels better overall but weak, frail coughing, SOB and dyspneic weaned down to 6-7 O2, desat with minimal exertion no other events Review of Systems Review of Systems: Yes all other systems are reviewed and are negative Physical Exam Vital Signs: Vital Signs: Last Vital Signs Temp 98.8 F 08/16/24 11:24 Pulse 86 08/16/24 14:51 Resp 16 08/16/24 14:51 BP 112/62 08/16/24 11:24 Pulse Ox 100 08/16/24 11:24 O2 Del Method Nasal Cannula 08/16/24 11:24 O2 Flow Rate 4 08/16/24 11:24 BMI result Body Mass Index 19.3 Const: Other: Constitutional : interactive, frail looking, in distress Cardiovascular : no JVP, no lower extremity edema Respiratory : bilateral chest movement,decrease air entry to basis, crackles , expiratory wheezes,in mild resp distress using accessory muscles Gastrointestinal: soft, lax, Non tender Skin : Warm, Dry Neurological : Alert & oriented to self and place, No focal deficit Objective Data Active Medications Acetaminophen (Acetaminophen 325 Mg Tablet) 650 mg PO Q6H PRN PRN Reason: Pain, Mild 1-3,fever,headache Albuterol Sulfate (Albuterol Sulfate (0.083%) 2.5 Mg/3 Ml Vial.Neb) 2.5 mg INHALE Q4H PRN PRN Reason: Shortness of Breath/Wheezing Albuterol/Ipratropium (Albuterol/Iprat 2.5/0.5mg 3 Ml Ampul.Neb) 3 ml INHALE RQ4H WHILE AWAKE [facility] Last Admin: 08/16/24 14:51 Dose: 3 ml Documented By: RHONA Aspirin (Aspirin Enteric Coated 81 Mg Tablet.) 81 mg PO DAILY [facility] Last Admin: 08/16/24 10:46 Dose: 81 mg Documented By: MIAH Atorvastatin Calcium (Atorvastatin Calcium 40 Mg Tablet) 40 mg PO BEDTIME [facility] Last Admin: 08/15/24 22:45 Dose: 40 mg Documented By: NAUMOC Benzonatate (Benzonatate 100 Mg Capsule) 200 mg PO TID [facility] Last Admin: 08/16/24 10:46 Dose: 200 mg Documented By: MIAH Bisacodyl (Bisacodyl 5 Mg Tablet.) 10 mg PO DAILY [facility] Last Admin: 08/16/24 10:46 Dose: 10 mg Documented By: MIAH Calcium Carbonate (Calcium Carbonate 750 Mg Tab.Chew) 750 mg PO Q4H PRN PRN Reason: Heartburn Ceftriaxone Sodium (Ceftriaxone Sodium 1 Gm Vial) 1 gm IVPUSH Q24H [facility] Last Admin: 08/16/24 10:46 Dose: 1 gm Documented By: MIAH Docusate Sodium (Docusate Sodium 100 Mg Capsule) 100 mg PO BID [facility] Last Admin: 08/16/24 10:45 Dose: 100 mg Documented By: MIAH Duloxetine HCl (Duloxetine Hcl 60 Mg Capsule.) 60 mg PO DAILY [facility] Last Admin: 08/16/24 10:46 Dose: 60 mg Documented By: MIAH Furosemide (Furosemide 40 Mg/4 Ml Vial) 40 mg IVPUSH DAILY [facility]; Protocol Last Admin: 08/16/24 10:47 Dose: 40 mg Documented By: MIAH Gabapentin (Gabapentin 300 Mg Capsule) 300 mg PO BEDTIME [facility] Last Admin: 08/15/24 22:47 Dose: 300 mg Documented By: GARRETT Guaifenesin (Guaifenesin 100 Mg/5 Ml 5 Ml Liquid) 5 ml PO Q4H PRN PRN Reason: Cough Last Admin: 08/15/24 02:08 Dose: 5 ml Documented By: FRANKY Guaifenesin/Dextromethorphan (Guaifenesin Dm 600/30 1 Tab Tab.Er.12h) 1 tab PO BID [facility] Last Admin: 08/16/24 10:46 Dose: 1 tab Documented By: MIAH Ferric Sodium Gluconate Complex 125 mg/ Sodium Chloride 110 mls @ 100 mls/hr IV DAILY [facility] Stop: 08/17/24 10:05 Last Infusion: 08/16/24 13:35 Dose: Infused Documented By: MIAH Azithromycin 500 mg/ Sodium (Chloride) 250 mls @ 125 mls/hr IV Q24H [facility] Last Infusion: 08/16/24 13:35 Dose: Infused Documented By: MIAH Insulin Glargine (Insulin Glargine,Hum.Rec.Anlog 100 Unit/Ml 10 Ml Vial) 10 unit SUBCUT DAILY@1300 [facility] Last Admin: 08/16/24 11:53 Dose: 10 unit Documented By: MIAH Insulin Human Lispro (Insulin Lispro 100 Unit/Ml 3 Ml Vial) 0 unit SUBCUT QIDACHS [facility]; Protocol Last Admin: 08/16/24 11:53 Dose: 4 unit Documented By: MIAH Loratadine (Loratadine 10 Mg Tablet) 10 mg PO DAILY [facility] Last Admin: 08/16/24 10:46 Dose: 10 mg Documented By: MIAH Losartan Potassium (Losartan Potassium 50 Mg Tablet) 50 mg PO DAILY [facility]; Protocol Last Admin: 08/16/24 10:46 Dose: 50 mg Documented By: MIAH Magnesium Hydroxide (Milk Of Magnesia 30 Ml Oral.Susp) 30 ml PO DAILY PRN PRN Reason: Constipation Magnesium Oxide (Magnesium Oxide 400 Mg Tablet) 400 mg PO BEDTIME [facility] Last Admin: 08/15/24 22:50 Dose: 400 mg Documented By: GARRETT Melatonin (Melatonin 3 Mg Tablet) 6 mg PO BEDTIME PRN PRN Reason: Insomnia Methylprednisolone Sodium Succinate (Methylprednisolone Sod Succ 40 Mg/Ml Vial) 40 mg IVPUSH BID [facility] Last Admin: 08/16/24 10:47 Dose: 40 mg Documented By: MIAH Morphine Sulfate (Morphine Sulfate 2 Mg/Ml Cartridge) 0.5 mg IVPUSH Q4H PRN; Protocol PRN Reason: Chest Pain Last Admin: 08/12/24 17:22 Dose: 0.5 mg Documented By: TREE Mycophenolate Mofetil (Mycophenolate Mofetil 250 Mg Capsule) 1,000 mg PO BID [facility] Last Admin: 08/16/24 10:46 Dose: 1,000 mg Documented By: MIAH Ondansetron HCl (Ondansetron Hcl 4 Mg/2 Ml Vial) 4 mg IVPUSH Q8H PRN PRN Reason: Nausea and Vomiting Senna (Sennosides 8.6 Mg Tablet) 17.2 mg PO BEDTIME [facility] Last Admin: 08/15/24 22:48 Dose: 17.2 mg Documented By: GARRETT Sodium Chloride (0.9 % Sodium Chloride Flush 3 Ml Syringe) 3 ml IVFLUSH QSHIFT [facility] Last Admin: 08/16/24 10:48 Dose: 3 ml Documented By: MIAH Tamsulosin HCl (Tamsulosin Hcl 0.4 Mg Capsule) 0.4 mg PO BEDTIME [facility] Last Admin: 08/15/24 22:50 Dose: 0.4 mg Documented By: GARRETT Tramadol HCl (Tramadol Hcl 50 Mg Tablet) 50 mg PO BEDTIME [facility] Last Admin: 08/15/24 22:50 Dose: 50 mg Documented By: GARRETT Vitamin D (Cholecalciferol (Vitamin D3) 25 Mcg Tablet) 50 mcg PO BEDTIME [facility] Last Admin: 08/15/24 22:50 Dose: 50 mcg Documented By: GARRETT Labs 08/16/24 06:55 08/16/24 06:55 Labs: Laboratory Results - last 24 hr 08/15/24 08/15/24 08/15/24 15:00 16:27 20:05 MCV MCH MCHC RDW Plt Count MPV Immature Gran % (Auto) Neut % (Auto) Lymph % (Auto) [place] % (Auto) Eos % (Auto) Baso % (Auto) Lymph # (Auto) [place] # (Auto) Eos # (Auto) Baso # (Auto) Abs Immat Gran (auto) Absolute Neuts (auto) Absolute Nucleated RBC Nucleated RBC % (auto) Anion Gap Estim Creat Clear Calc Estimated GFR POC Glucose 186 H 221 H Random Glucose Calcium B-Natriuretic Peptide Respiratory Panel Malik See Note Adenovirus (Rapid PCR) Not Detected B.pert (TEM-PCR) Not Detected B.parapertussis DNA PCR Not Detected C. pneumoniae DNA (PCR) Not Detected Coronavirus OC43 (PCR) Not Detected Coronavirus HKU1 (PCR) Not Detected Coronavirus 229E (PCR) Not Detected Coronavirus NL63 (PCR) Not Detected Human Metapneumovir PCR Not Detected Influenza A (RT-PCR) Not Detected Influenza B (RT-PCR) Not Detected M. pneumoniae (PCR) Not Detected Parainfluenza 1 (PCR) Not Detected Parainfluenza 2 (PCR) Not Detected Parainfluenza 3 (PCR) Not Detected Parainfluenza 4 (PCR) Not Detected RSV (PCR) Not Detected Entero/Rhino (PCR) Not Detected SARS-CoV-2 RNA (RT-PCR) Not Detected 08/16/24 08/16/24 08/16/24 06:54 06:55 07:38 MCV 86.5 MCH 26.1 L MCHC 30.2 L RDW 16.6 H Plt Count 757 H MPV 9.3 L Immature Gran % (Auto) 0.4 Neut % (Auto) 88.1 H Lymph % (Auto) 6.8 L [place] % (Auto) 4.5 Eos % (Auto) 0.1 Baso % (Auto) 0.1 Lymph # (Auto) 1.0 L [place] # (Auto) 0.6 Eos # (Auto) 0.0 Baso # (Auto) 0.0 Abs Immat Gran (auto) 0.06 H Absolute Neuts (auto) 12.3 H Absolute Nucleated RBC 0.000 Nucleated RBC % (auto) 0.0 Anion Gap 11 L Estim Creat Clear Calc 55.6 Estimated GFR > 60 POC Glucose 151 H Random Glucose 127 H Calcium 9.3 B-Natriuretic Peptide 1403 H Respiratory Panel Malik Adenovirus (Rapid PCR) B.pert (TEM-PCR) B.parapertussis DNA PCR C. pneumoniae DNA (PCR) Coronavirus OC43 (PCR) Coronavirus HKU1 (PCR) Coronavirus 229E (PCR) Coronavirus NL63 (PCR) Human Metapneumovir PCR Influenza A (RT-PCR) Influenza B (RT-PCR) M. pneumoniae (PCR) Parainfluenza 1 (PCR) Parainfluenza 2 (PCR) Parainfluenza 3 (PCR) Parainfluenza 4 (PCR) RSV (PCR) Entero/Rhino (PCR) SARS-CoV-2 RNA (RT-PCR) 08/16/24 11:28 MCV MCH MCHC RDW Plt Count MPV Immature Gran % (Auto) Neut % (Auto) Lymph % (Auto) [place] % (Auto) Eos % (Auto) Baso % (Auto) Lymph # (Auto) [place] # (Auto) Eos # (Auto) Baso # (Auto) Abs Immat Gran (auto) Absolute Neuts (auto) Absolute Nucleated RBC Nucleated RBC % (auto) Anion Gap Estim Creat Clear Calc Estimated GFR POC Glucose 233 H Random Glucose Calcium B-Natriuretic Peptide Respiratory Panel Malik Adenovirus (Rapid PCR) B.pert (TEM-PCR) B.parapertussis DNA PCR C. pneumoniae DNA (PCR) Coronavirus OC43 (PCR) Coronavirus HKU1 (PCR) Coronavirus 229E (PCR) Coronavirus NL63 (PCR) Human Metapneumovir PCR Influenza A (RT-PCR) Influenza B (RT-PCR) M. pneumoniae (PCR) Parainfluenza 1 (PCR) Parainfluenza 2 (PCR) Parainfluenza 3 (PCR) Parainfluenza 4 (PCR) RSV (PCR) Entero/Rhino (PCR) SARS-CoV-2 RNA (RT-PCR) Microbiology Microbiology Results: Microbiology 08/14/24 22:17 Blood Culture - Preliminary Blood - Venous No growth after 24 hours. 08/14/24 22:17 Blood Culture - Preliminary Blood - Venous No growth after 24 hours. Assessment and Plan (1) Acute on chronic anemia: Status: Acute (2) Acute on chronic hypoxic respiratory failure: Status: Acute (3) Acute non-ST elevation myocardial infarction (NSTEMI): Status: Acute (4) Interstitial pulmonary disease, unspecified: Status: Acute Plan 83-year-old woman admitted with NSTEMI and acute congestive heart failure NSTEMI Therapeutic Lovenox finished 48 hours Cardiology input appreciated, medical management only Echocardiogram ejection fraction is between 60-65%. Severely increased right ventricular cavity size. Severe pulmonary hypertension Aspirin and statin acute on chronic hypoxic respiratory failure 2/2 Heart failure with preserved ejection fraction Increased Lasix to 40 IV daily with fair response BNP still elevated aroun 1400 Monitor daily weights Strict intake and output Acute on chronic hypoxia 2/2 Atelactasis\pneumonia Repeat CXR 08/15 showing worsening LLL infiltrates On IV Antibiotic of Azithromycin and Ceftriaxone 08/15 wean O2 as tolerated negative viral panel cough medicine Acute on chronic anemia check occult Low iron stores, give Iron supplement repeat H&H, consider transfusion of dropping\remains below 8 LActic acidosis , tachycardia likely from nebulizers and hypoxia not due to severe sepsis Asthma/COPD overlap syndrome dry cough antitussin Continue oxygen supplementation to keep oxygen saturation greater than 90% Constipation no BM in more than 2 days senna, colace, bisacodyl Hypertension Stable blood pressure continue losartan Diabetes mellitus type 2 Sliding scale, ADA diet Chronic thrombocytosis baseline DVT prophylaxis with therapeutic Lovenox Full code The patient will need overnight hospital stay for weaning down O2 and fluid status improvement pending final blood cultures Quality Stroke Does the patient have a stroke diagnosis?: No VTE Prior VTE?: No VTE Risk Level:: Medical - moderate - high VTE Device Contraindication: Treatment Not Indicated VTE Drug Contraindication: N/A - Med Ordered
[2024-08-16 16:23] LABS: Glucose, Whole Blood 183 mg/dL (60-115)
[2024-08-16 20:40] LABS: Glucose, Whole Blood 233 mg/dL (60-115)
[2024-08-16] MEDS: Sennosides 8.6 MG TABLET 17.2 MG PO (22:44)
[2024-08-16] MEDS: Cholecalciferol (Vitamin D3) 25 MCG TABLET 50 MCG PO (22:44)
[2024-08-16] MEDS: Gabapentin 300 MG CAPSULE PO (22:44)
[2024-08-16] MEDS: traMADoL HCL 50 MG TABLET PO (22:44)
[2024-08-16] MEDS: Tamsulosin HCL 0.4 MG CAPSULE PO (22:45)
[2024-08-16] MEDS: Atorvastatin Calcium 40 MG TABLET PO (22:45)
[2024-08-16] MEDS: Magnesium Oxide 400 MG TABLET PO (22:45)
[2024-08-17] VITALS (10 sets, daily range): BP systolic 100–108; BP diastolic 60–65; PULSE 80–100; RESP 16–20; TEMP 36.1–36.4; O2SAT 90–100
[2024-08-17 06:47] LABS: MANUAL DIFF FLAG NO
[2024-08-17 06:52] LABS: Basophils Percent Auto 0.1 % (0-2); Hematocrit 30.2 % (37.0-47.0); Hemoglobin 9.1 g/dl (12.0-16.0); Imm Gran Abs Auto 0.06 X10*3/uL (0.00-0.03); Imm Gran Pct Auto 0.5 % (0.0-0.4); Lymphocytes Absolute Auto 0.9 X10*3/uL (1.2-4.9); Lymphocytes Percent Auto 7.4 % (20-40); Mean Corpuscular HGB Conc 30.1 g/dl (31.0-35.0); Mean Corpuscular Volume 86.3 fL (80.0-98.0); Mean Platelet Volume 8.9 fL (9.4-12.3); Monocytes Absolute Auto 0.6 X10*3/uL (0.1-1.2); Monocytes Percent Auto 4.3 % (2-11); Neutrophils Absolute Auto 11.2 x10*3/uL (2.0-8.3); Neutrophils Percent Auto 87.7 % (45-73); Platelet Count 771 X10*3/uL (160-400); Red Cell Distribution Width 16.7 % (11.0-16.0); White Blood Count 12.8 X10*3/uL (4.8-10.8)
[2024-08-17 07:10] LABS: Anion Gap 12 (12-20); Blood Urea Nitrogen 22 mg/dL (9-16); Calcium 9.1 mg/dL (8.4-10.2); Carbon Dioxide 33 mmol/L (22-29); Chloride 98 mmol/L (96-108); Creatinine Clr Calc Pharmacy 59.8; Estimated Glomerular Filt Rate > 60; Glucose Random 201 mg/dL (60-115); Potassium 3.6 mmol/L (3.3-5.1); Sodium 139 mmol/L (135-145)
[2024-08-17 07:28] LABS: Glucose, Whole Blood 186 mg/dL (60-115)
[2024-08-17] MEDS: Albuterol/Iprat 2.5/0.5MG 3 ML AMPUL.NEB INHALE ×4 (08:51→20:21)
[2024-08-17] MEDS: 0.9 % Sodium Chloride Flush 3 ML SYRINGE IVFLUSH ×3 (08:57→20:59)
[2024-08-17] MEDS: Insulin Lispro 100 UNIT/ML 3 ML VIAL SUBCUT ×4 (08:57→20:58)
[2024-08-17] MEDS: bisacodyL 5 MG TABLET.DR 10 MG PO (08:58)
[2024-08-17] MEDS: Benzonatate 100 MG CAPSULE 200 MG PO ×3 (08:58→20:58)
[2024-08-17] MEDS: mycophenolate mofetiL 250 MG CAPSULE 1000 MG PO ×2 (08:58→20:58)
[2024-08-17] MEDS: Losartan Potassium 50 MG TABLET PO (08:58)
[2024-08-17] MEDS: guaiFENesin DM 600/30 1 TAB TAB.ER.12H PO ×2 (08:58→20:58)
[2024-08-17] MEDS: Furosemide 40 MG/4 ML VIAL IVPUSH (08:58)
[2024-08-17] MEDS: Loratadine 10 MG TABLET PO (08:58)
[2024-08-17] MEDS: Aspirin Enteric Coated 81 MG TABLET.DR PO (08:58)
[2024-08-17] MEDS: DULoxetine HCl 60 MG CAPSULE.DR PO (08:58)
[2024-08-17] MEDS: methylPREDNISolone Sod Succ 40 MG/ML VIAL IVPUSH ×2 (08:59→20:58)
[2024-08-17] MEDS: Iron Sucrose Complex 200 MG/10 ML VIAL IVPUSH (08:59)
[2024-08-17] MEDS: cefTRIAXone sodium 1 GM VIAL IVPUSH (08:59)
[2024-08-17] MEDS: Azithromycin 500 MG in 0.9 % Sodium Chloride 250 ML 125 MG IV (09:03)
[2024-08-17] MEDS: Docusate Sodium 100 MG CAPSULE PO ×2 (09:04→20:58)
[2024-08-17 11:22] LABS: Glucose, Whole Blood 169 mg/dL (60-115)
[2024-08-17] MEDS: Insulin Glargine,Hum.rec.anlog 100 UNIT/ML 10 ML VIAL 10 UNIT SUBCUT (12:56)
--- NOTE | 2024-08-17 13:10 | P.PNIM_ITS ---
Subjective Subjective Date of Service: 08/17/24 Interval History: seen and evaluated this morning feels better overall but weak, frail coughing, SOB and dyspneic and had an episode of aspiration with desat while ieating Review of Systems Review of Systems: Yes all other systems are reviewed and are negative Physical Exam 2 Vital Signs: Vital Signs: Last Vital Signs Temp 97.2 F 08/17/24 11:04 Pulse 97 08/17/24 11:49 Resp 18 08/17/24 11:49 BP 105/65 08/17/24 11:04 Pulse Ox 99 08/17/24 11:04 O2 Del Method Nasal Cannula 08/17/24 11:04 O2 Flow Rate 6 08/17/24 11:04 BMI result Body Mass Index 19.3 Const: Other: Constitutional : interactive, frail looking, in distress Cardiovascular : no JVP, no lower extremity edema Respiratory : bilateral chest movement,decrease air entry to basis, crackles , expiratory wheezes,in mild resp distress using accessory muscles Gastrointestinal: soft, lax, Non tender Skin : Warm, Dry Neurological : Alert & oriented to self and place, No focal deficit Objective Data Active Medications Acetaminophen (Acetaminophen 325 Mg Tablet) 650 mg PO Q6H PRN PRN Reason: Pain, Mild 1-3,fever,headache Albuterol Sulfate (Albuterol Sulfate (0.083%) 2.5 Mg/3 Ml Vial.Neb) 2.5 mg INHALE Q4H PRN PRN Reason: Shortness of Breath/Wheezing Albuterol/Ipratropium (Albuterol/Iprat 2.5/0.5mg 3 Ml Ampul.Neb) 3 ml INHALE RQ4H WHILE AWAKE [facility] Last Admin: 08/17/24 11:49 Dose: 3 ml Documented By: RHONA Aspirin (Aspirin Enteric Coated 81 Mg Tablet.) 81 mg PO DAILY [facility] Last Admin: 08/17/24 08:58 Dose: 81 mg Documented By: WHITLEY Atorvastatin Calcium (Atorvastatin Calcium 40 Mg Tablet) 40 mg PO BEDTIME [facility] Last Admin: 08/16/24 22:45 Dose: 40 mg Documented By: ANIBAL-HERMELINDAZEB Benzonatate (Benzonatate 100 Mg Capsule) 200 mg PO TID [facility] Last Admin: 08/17/24 08:58 Dose: 200 mg Documented By: WHITLEY Bisacodyl (Bisacodyl 5 Mg Tablet.) 10 mg PO DAILY [facility] Last Admin: 08/17/24 08:58 Dose: 10 mg Documented By: WHITLEY Calcium Carbonate (Calcium Carbonate 750 Mg Tab.Chew) 750 mg PO Q4H PRN PRN Reason: Heartburn Ceftriaxone Sodium (Ceftriaxone Sodium 1 Gm Vial) 1 gm IVPUSH Q24H [facility] Last Admin: 08/17/24 08:59 Dose: 1 gm Documented By: WHITLEY Docusate Sodium (Docusate Sodium 100 Mg Capsule) 100 mg PO BID [facility] Last Admin: 08/17/24 09:04 Dose: 100 mg Documented By: WHITLEY Duloxetine HCl (Duloxetine Hcl 60 Mg Capsule.) 60 mg PO DAILY [facility] Last Admin: 08/17/24 08:58 Dose: 60 mg Documented By: WHITLEY Furosemide (Furosemide 40 Mg/4 Ml Vial) 40 mg IVPUSH DAILY [facility]; Protocol Last Admin: 08/17/24 08:58 Dose: 40 mg Documented By: WHITLEY Gabapentin (Gabapentin 300 Mg Capsule) 300 mg PO BEDTIME [facility] Last Admin: 08/16/24 22:44 Dose: 300 mg Documented By: ANIBAL-HERMELINDAZEMasha Guaifenesin (Guaifenesin 100 Mg/5 Ml 5 Ml Liquid) 5 ml PO Q4H PRN PRN Reason: Cough Last Admin: 08/15/24 02:08 Dose: 5 ml Documented By: FRANKY Guaifenesin/Dextromethorphan (Guaifenesin Dm 600/30 1 Tab Tab.Er.12h) 1 tab PO BID [facility] Last Admin: 08/17/24 08:58 Dose: 1 tab Documented By: WHITLEY Azithromycin 500 mg/ Sodium (Chloride) 250 mls @ 125 mls/hr IV Q24H [facility] Last Infusion: 08/17/24 11:43 Dose: Infused Documented By: SAM Insulin Glargine (Insulin Glargine,Hum.Rec.Anlog 100 Unit/Ml 10 Ml Vial) 10 unit SUBCUT DAILY@1300 [facility] Last Admin: 08/17/24 12:56 Dose: 10 unit Documented By: WHITLEY Insulin Human Lispro (Insulin Lispro 100 Unit/Ml 3 Ml Vial) 0 unit SUBCUT QIDACHS [facility]; Protocol Last Admin: 08/17/24 11:44 Dose: 2 unit Documented By: SAM Loratadine (Loratadine 10 Mg Tablet) 10 mg PO DAILY [facility] Last Admin: 08/17/24 08:58 Dose: 10 mg Documented By: WHITLEY Losartan Potassium (Losartan Potassium 50 Mg Tablet) 50 mg PO DAILY [facility]; Protocol Last Admin: 08/17/24 08:58 Dose: 50 mg Documented By: WHITLEY Magnesium Hydroxide (Milk Of Magnesia 30 Ml Oral.Susp) 30 ml PO DAILY PRN PRN Reason: Constipation Magnesium Oxide (Magnesium Oxide 400 Mg Tablet) 400 mg PO BEDTIME [facility] Last Admin: 08/16/24 22:45 Dose: 400 mg Documented By: LEXI Melatonin (Melatonin 3 Mg Tablet) 6 mg PO BEDTIME PRN PRN Reason: Insomnia Methylprednisolone Sodium Succinate (Methylprednisolone Sod Succ 40 Mg/Ml Vial) 40 mg IVPUSH BID [facility] Last Admin: 08/17/24 08:59 Dose: 40 mg Documented By: WHITLEY Morphine Sulfate (Morphine Sulfate 2 Mg/Ml Cartridge) 0.5 mg IVPUSH Q4H PRN; Protocol PRN Reason: Chest Pain Last Admin: 08/12/24 17:22 Dose: 0.5 mg Documented By: TREE Mycophenolate Mofetil (Mycophenolate Mofetil 250 Mg Capsule) 1,000 mg PO BID [facility] Last Admin: 08/17/24 08:58 Dose: 1,000 mg Documented By: WHITLEY Ondansetron HCl (Ondansetron Hcl 4 Mg/2 Ml Vial) 4 mg IVPUSH Q8H PRN PRN Reason: Nausea and Vomiting Senna (Sennosides 8.6 Mg Tablet) 17.2 mg PO BEDTIME [facility] Last Admin: 08/16/24 22:44 Dose: 17.2 mg Documented By: LEXI Sodium Chloride (0.9 % Sodium Chloride Flush 3 Ml Syringe) 3 ml IVFLUSH QSHIFT [facility] Last Admin: 08/17/24 08:57 Dose: 3 ml Documented By: WHITLEY Tamsulosin HCl (Tamsulosin Hcl 0.4 Mg Capsule) 0.4 mg PO BEDTIME [facility] Last Admin: 08/16/24 22:45 Dose: 0.4 mg Documented By: LEXI Tramadol HCl (Tramadol Hcl 50 Mg Tablet) 50 mg PO BEDTIME [facility] Last Admin: 08/16/24 22:44 Dose: 50 mg Documented By: LEXI Vitamin D (Cholecalciferol (Vitamin D3) 25 Mcg Tablet) 50 mcg PO BEDTIME [facility] Last Admin: 08/16/24 22:44 Dose: 50 mcg Documented By: LEXI Labs 08/17/24 06:37 08/17/24 06:37 Labs: Laboratory Results - last 24 hr 08/16/24 08/16/24 08/17/24 16:15 20:36 06:37 MCV 86.3 MCH 26.0 L MCHC 30.1 L RDW 16.7 H Plt Count 771 H MPV 8.9 L Immature Gran % (Auto) 0.5 H Neut % (Auto) 87.7 H Lymph % (Auto) 7.4 L [place] % (Auto) 4.3 Eos % (Auto) 0.0 Baso % (Auto) 0.1 Lymph # (Auto) 0.9 L [place] # (Auto) 0.6 Eos # (Auto) 0.0 Baso # (Auto) 0.0 Abs Immat Gran (auto) 0.06 H Absolute Neuts (auto) 11.2 H Absolute Nucleated RBC 0.000 Nucleated RBC % (auto) 0.0 Anion Gap 12 Estim Creat Clear Calc 59.8 Estimated GFR > 60 POC Glucose 183 H 233 H Random Glucose 201 H Calcium 9.1 08/17/24 08/17/24 07:24 11:15 MCV MCH MCHC RDW Plt Count MPV Immature Gran % (Auto) Neut % (Auto) Lymph % (Auto) [place] % (Auto) Eos % (Auto) Baso % (Auto) Lymph # (Auto) [place] # (Auto) Eos # (Auto) Baso # (Auto) Abs Immat Gran (auto) Absolute Neuts (auto) Absolute Nucleated RBC Nucleated RBC % (auto) Anion Gap Estim Creat Clear Calc Estimated GFR POC Glucose 186 H 169 H Random Glucose Calcium Microbiology Microbiology Results: Microbiology 08/14/24 22:17 Blood Culture - Preliminary Blood - Venous No growth after 48 hours. 08/14/24 22:17 Blood Culture - Preliminary Blood - Venous No growth after 48 hours. Assessment and Plan (1) Acute on chronic anemia: Status: Acute (2) Acute on chronic hypoxic respiratory failure: Status: Acute (3) Acute non-ST elevation myocardial infarction (NSTEMI): Status: Acute (4) Interstitial pulmonary disease, unspecified: Status: Acute Plan 83-year-old woman admitted with NSTEMI and acute congestive heart failure NSTEMI , medically treated, completed anticoagulation x 48hrs, echo ef nl 60 to 65%, severe pul HTN, seen by cardio. Medical management with ASA, statin acute on chronic hypoxic respiratory failure 2/2 Heart failure with preserved ejection fraction and likely aspiration, pna diuresed with IV Lasi, neg 3000l. Change to PO lasix starting tomorrow. Follow bmp, i/o. Continue azith and ceftriaxon, change to Augmentin tomorrowf. Speech eval for aspiration Acute on chronic anemia, h/h stable. Monitor Acute LActic acidosis not due to sepsis, rhather hypoxia Asthma/COPD overlap syndrome dry cough antitussin Continue oxygen supplementation to keep oxygen saturation greater than 90% Constipation senna, colace, bisacodyl Hypertension Stable blood pressure continue losartan Diabetes mellitus type 2 Sliding scale, ADA diet Chronic thrombocytosis baseline DVT prophylaxis with therapeutic Lovenox Full code The patient will need overnight hospital stay for weaning down O2 and fluid status improvement pending final blood cultures Pt eval before dc Quality Stroke Does the patient have a stroke diagnosis?: No VTE Prior VTE?: No VTE Risk Level:: Medical - moderate - high VTE Device Contraindication: Treatment Not Indicated VTE Drug Contraindication: N/A - Med Ordered
--- NOTE | 2024-08-17 15:14 | MHC.SL.SWA ---
Speech Pathologist Impression: Risk of Aspiration Due to: Medically Fragile Dysphasia Diet Status: Liquid Consistency and Strategies for Safe Swallow: Liquid Intake Recommendation: Thin Liquid Intake Strategies: Small Sips Solid Food Consistency: Dietary Recommendations: Regular Additional Modifications to Solid Foods: Patient may benefit from downgrade to Chopped/Advanced solids to assure food is soft and precut. Oral Medication Intake: Whole with Liquid Please contact the pharmacy regarding appropriate crushable or liquid drug formulations that are available whenever modified delivery is recommended. Compensatory Strategies and Precautions to be Taken for Safe Swallow: Supervision While Eating and Drinking for Safe Swallow: Tray Set Up Foods to Avoid: Tough, difficult to chew solids, too large pieces of food. Swallowing Recommended Treatments: Compens. Strategy Educat. Recommendation for Speech: Inpatient Speech Therapy Comment: Patient presents with a mild to moderate oral phase dysphagia secondary to limited dentition, and has very compromised respiratory function making eating effortful and fatiguing. Patient is currently on Regular Diet with thin liquids, pills whole with liquid. Downgrading diet to Chopped Advanced was discussed at length with patients daughter, who has requested that her food be cut small before being given to her. On this day, Daughter had carefully selected meals from the regular menu to appeal to the patient and be of a soft manageable consistency and appeared invested in these choices. It is recommended a possible downgrade be re-visited tomorrow, as it is more likely to meet patient's needs, in the event family supervision is not present at all meals. Recommend no change at this time, continue on Regular diet with Thin liquids, pills whole with liquid. Recommend 1 f/u from [employer] WORKER to asses if downgrade is warranted/approved by family. RN advised of this recommendation in person, MD/RD by secure text. Frequency/Duration: Date Range for Service Req: Timeline to reassess: Law Office Assistant Clinican/Clinical Fellow: No Supervisory Statement: I have reviewed and agree with the student/clinical fellow's documentation: N/A Speech Language Pathologist: Anastasiya Freeman M.A., [facility]-[employer] WORKER
[2024-08-17 16:10] LABS: Glucose, Whole Blood 204 mg/dL (60-115)
[2024-08-17 20:47] LABS: Glucose, Whole Blood 279 mg/dL (60-115)
[2024-08-17] MEDS: Gabapentin 300 MG CAPSULE PO (20:58)
[2024-08-17] MEDS: Sennosides 8.6 MG TABLET 17.2 MG PO (20:58)
[2024-08-17] MEDS: Cholecalciferol (Vitamin D3) 25 MCG TABLET 50 MCG PO (20:58)
[2024-08-17] MEDS: Magnesium Oxide 400 MG TABLET PO (20:58)
[2024-08-17] MEDS: Tamsulosin HCL 0.4 MG CAPSULE PO (20:58)
[2024-08-17] MEDS: Atorvastatin Calcium 40 MG TABLET PO (20:58)
[2024-08-18] VITALS (10 sets, daily range): BP systolic 106–125; BP diastolic 56–76; PULSE 86–109; RESP 18–20; TEMP 36.1–36.6; O2SAT 88–100
[2024-08-18 07:19] LABS: Glucose, Whole Blood 124 mg/dL (60-115)
[2024-08-18] MEDS: Albuterol/Iprat 2.5/0.5MG 3 ML AMPUL.NEB INHALE ×4 (08:12→19:14)
[2024-08-18] MEDS: cefTRIAXone sodium 1 GM VIAL IVPUSH (09:34)
[2024-08-18] MEDS: methylPREDNISolone Sod Succ 40 MG/ML VIAL IVPUSH ×2 (09:35→22:42)
[2024-08-18] MEDS: Loratadine 10 MG TABLET PO (09:35)
[2024-08-18] MEDS: guaiFENesin DM 600/30 1 TAB TAB.ER.12H PO ×2 (09:35→22:40)
[2024-08-18] MEDS: Aspirin Enteric Coated 81 MG TABLET.DR PO (09:35)
[2024-08-18] MEDS: Losartan Potassium 50 MG TABLET PO (09:36)
[2024-08-18] MEDS: Benzonatate 100 MG CAPSULE 200 MG PO ×3 (09:36→22:40)
[2024-08-18] MEDS: 0.9 % Sodium Chloride Flush 3 ML SYRINGE IVFLUSH ×3 (09:36→22:44)
[2024-08-18] MEDS: DULoxetine HCl 60 MG CAPSULE.DR PO (09:40)
[2024-08-18] MEDS: mycophenolate mofetiL 250 MG CAPSULE 1000 MG PO ×2 (09:43→22:38)
[2024-08-18] MEDS: Furosemide 40 MG/4 ML VIAL IVPUSH (09:44)
[2024-08-18] MEDS: Azithromycin 500 MG in 0.9 % Sodium Chloride 250 ML 125 MG IV (09:55)
--- NOTE | 2024-08-18 11:04 | MHC.SL.SWA ---
Speech Pathologist Impression: Risk of Aspiration Due to: Medically Fragile Dysphasia Diet Status: Continue on REGULAR diet, electing softer and preferred foods from the menu, Thin liquids, pills whole with liquid or puree as preferred. Liquid Consistency and Strategies for Safe Swallow: Liquid Intake Recommendation: Thin Liquid Intake Strategies: Small Sips Solid Food Consistency: Dietary Recommendations: Regular Additional Modifications to Solid Foods: If family member(s) not present, provide patient with supervision and assistance at meals (e.g. cut food into small pieces) Oral Medication Intake: Whole with Liquid Please contact the pharmacy regarding appropriate crushable or liquid drug formulations that are available whenever modified delivery is recommended. Compensatory Strategies and Precautions to be Taken for Safe Swallow: Sitting Upright (90 deg) Liquids from Cup Liquids from Straw Small Bites and Sips Alternate Liquids/Solids Supervision While Eating and Drinking for Safe Swallow: Intermittent Supervision Foods to Avoid: Tough, difficult to chew solids, too large pieces of food. Swallowing Recommended Treatments: Compens. Strategy Educat. Recommendation for Speech: Inpatient Speech Therapy Comment: Patient seen at breakfast this morning which she had just concluded, eating only small amount from tray. Patient's was also present in room, both were communicated with in Nigerien. Patient noted that she did not much like the breakfast of pancakes, and therefore did not eat much. Patient reported that she did have pasta last night, which was somewhat more enjoyable, but also reported she did not eat much. Patient expressed that her preference is for familiar [place] food (e.g. stated she would prefer [employer] [place] for breakfast). Discussed with patient the option for pre-cut food, but again, it appears that her preference (and family preference) is to continue to pick from the regular menu foods that are softer and hopefully appealing to patient. Recommend, therefore, Patient continue on Regular Diet with thin liquids, pills whole with liquid or puree(as preferred). Patient is on least restrictive diet, and though eating sparsely, tolerating well. Patient benefits from supervision at meals and assistance with cutting up food, which is largely being managed by the family, however, if family is not present, should receive this support from staff. No further BUSINESS DEVELOPMENT RECRUITER service warranted, will DC. Frequency/Duration: Date Range for Service Req: Timeline to reassess: Pressure Welder Clinican/Clinical Fellow: No Supervisory Statement: I have reviewed and agree with the student/clinical fellow's documentation: N/A Speech Language Pathologist: Anastasiya Freeman M.A., CCC-BUSINESS DEVELOPMENT RECRUITER
[2024-08-18 11:10] LABS: Glucose, Whole Blood 294 mg/dL (60-115)
[2024-08-18] MEDS: Insulin Lispro 100 UNIT/ML 3 ML VIAL SUBCUT ×3 (11:55→22:41)
[2024-08-18] MEDS: Insulin Glargine,Hum.rec.anlog 100 UNIT/ML 10 ML VIAL 10 UNIT SUBCUT (13:23)
[2024-08-18 16:50] LABS: Glucose, Whole Blood 230 mg/dL (60-115)
--- NOTE | 2024-08-18 20:29 | P.PNIM_ITS ---
Subjective Subjective Date of Service: 07/18/24 Interval History: seen and evaluated this morning feels better overall but weak, frail No new issues, desat with little effort Review of Systems Review of Systems: Yes all other systems are reviewed and are negative Physical Exam 2 Vital Signs: Vital Signs: Last Vital Signs Temp 97.6 F 08/18/24 16:00 Pulse 105 H 08/18/24 19:14 Resp 20 08/18/24 19:14 BP 112/57 L 08/18/24 16:00 Pulse Ox 92 08/18/24 16:00 O2 Del Method Nasal Cannula 08/18/24 16:00 O2 Flow Rate 6 08/18/24 16:00 BMI result Body Mass Index 19.3 Const: Other: Constitutional : interactive, frail looking, in distress Cardiovascular : no JVP, no lower extremity edema Respiratory : bilateral chest movement,decrease air entry to basis, crackles , expiratory wheezes,in mild resp distress using accessory muscles Gastrointestinal: soft, lax, Non tender Skin : Warm, Dry Neurological : Alert & oriented to self and place, No focal deficit Objective Data Active Medications Acetaminophen (Acetaminophen 325 Mg Tablet) 650 mg PO Q6H PRN PRN Reason: Pain, Mild 1-3,fever,headache Albuterol Sulfate (Albuterol Sulfate (0.083%) 2.5 Mg/3 Ml Vial.Neb) 2.5 mg INHALE Q4H PRN PRN Reason: Shortness of Breath/Wheezing Albuterol/Ipratropium (Albuterol/Iprat 2.5/0.5mg 3 Ml Ampul.Neb) 3 ml INHALE RQ4H WHILE AWAKE [facility] Last Admin: 08/18/24 19:14 Dose: 3 ml Documented By: IMELDA Aspirin (Aspirin Enteric Coated 81 Mg Tablet.) 81 mg PO DAILY [facility] Last Admin: 08/18/24 09:35 Dose: 81 mg Documented By: KAYLA Atorvastatin Calcium (Atorvastatin Calcium 40 Mg Tablet) 40 mg PO BEDTIME [facility] Last Admin: 08/17/24 20:58 Dose: 40 mg Documented By: MATTIEB Benzonatate (Benzonatate 100 Mg Capsule) 200 mg PO TID [facility] Last Admin: 08/18/24 15:26 Dose: 200 mg Documented By: KAYLA Bisacodyl (Bisacodyl 5 Mg Tablet.) 10 mg PO DAILY [facility] Last Admin: 08/18/24 09:44 Dose: Not Given Documented By: KAYLA Non-Admin Reason: diarrhea Calcium Carbonate (Calcium Carbonate 750 Mg Tab.Chew) 750 mg PO Q4H PRN PRN Reason: Heartburn Ceftriaxone Sodium (Ceftriaxone Sodium 1 Gm Vial) 1 gm IVPUSH Q24H [facility] Last Admin: 08/18/24 09:34 Dose: 1 gm Documented By: KAYLA Docusate Sodium (Docusate Sodium 100 Mg Capsule) 100 mg PO BID [facility] Last Admin: 08/18/24 09:44 Dose: Not Given Documented By: KAYLA Non-Admin Reason: diarrhea Duloxetine HCl (Duloxetine Hcl 60 Mg Capsule.) 60 mg PO DAILY [facility] Last Admin: 08/18/24 09:40 Dose: 60 mg Documented By: KAYLA Furosemide (Furosemide 40 Mg/4 Ml Vial) 40 mg IVPUSH DAILY [facility]; Protocol Last Admin: 08/18/24 09:44 Dose: 40 mg Documented By: KAYLA Gabapentin (Gabapentin 300 Mg Capsule) 300 mg PO BEDTIME [facility] Last Admin: 08/17/24 20:58 Dose: 300 mg Documented By: ANJU Guaifenesin (Guaifenesin 100 Mg/5 Ml 5 Ml Liquid) 5 ml PO Q4H PRN PRN Reason: Cough Last Admin: 08/15/24 02:08 Dose: 5 ml Documented By: FRANKY Guaifenesin/Dextromethorphan (Guaifenesin Dm 600/30 1 Tab Tab.Er.12h) 1 tab PO BID [facility] Last Admin: 08/18/24 09:35 Dose: 1 tab Documented By: KAYLA Azithromycin 500 mg/ Sodium (Chloride) 250 mls @ 125 mls/hr IV Q24H [facility] Last Infusion: 08/18/24 11:55 Dose: Infused Documented By: KAYLA Insulin Glargine (Insulin Glargine,Hum.Rec.Anlog 100 Unit/Ml 10 Ml Vial) 10 unit SUBCUT DAILY@1300 [facility] Last Admin: 08/18/24 13:23 Dose: 10 unit Documented By: KAYLA Insulin Human Lispro (Insulin Lispro 100 Unit/Ml 3 Ml Vial) 0 unit SUBCUT QIDACHS [facility]; Protocol Last Admin: 08/18/24 17:13 Dose: 4 unit Documented By: KAYLA Loratadine (Loratadine 10 Mg Tablet) 10 mg PO DAILY [facility] Last Admin: 08/18/24 09:35 Dose: 10 mg Documented By: KAYLA Losartan Potassium (Losartan Potassium 50 Mg Tablet) 50 mg PO DAILY [facility]; Protocol Last Admin: 08/18/24 09:36 Dose: 50 mg Documented By: KAYLA Magnesium Hydroxide (Milk Of Magnesia 30 Ml Oral.Susp) 30 ml PO DAILY PRN PRN Reason: Constipation Magnesium Oxide (Magnesium Oxide 400 Mg Tablet) 400 mg PO BEDTIME [facility] Last Admin: 08/17/24 20:58 Dose: 400 mg Documented By: ANUJ Melatonin (Melatonin 3 Mg Tablet) 6 mg PO BEDTIME PRN PRN Reason: Insomnia Methylprednisolone Sodium Succinate (Methylprednisolone Sod Succ 40 Mg/Ml Vial) 40 mg IVPUSH BID [facility] Last Admin: 08/18/24 09:35 Dose: 40 mg Documented By: KAYLA Morphine Sulfate (Morphine Sulfate 2 Mg/Ml Cartridge) 0.5 mg IVPUSH Q4H PRN; Protocol PRN Reason: Chest Pain Last Admin: 08/12/24 17:22 Dose: 0.5 mg Documented By: TREE Mycophenolate Mofetil (Mycophenolate Mofetil 250 Mg Capsule) 1,000 mg PO BID [facility] Last Admin: 08/18/24 09:43 Dose: 1,000 mg Documented By: KAYLA Ondansetron HCl (Ondansetron Hcl 4 Mg/2 Ml Vial) 4 mg IVPUSH Q8H PRN PRN Reason: Nausea and Vomiting Senna (Sennosides 8.6 Mg Tablet) 17.2 mg PO BEDTIME [facility] Last Admin: 08/17/24 20:58 Dose: 17.2 mg Documented By: ANJU Sodium Chloride (0.9 % Sodium Chloride Flush 3 Ml Syringe) [facility] Admin: 08/18/24 17:13 Dose: 3 ml Documented By: KAYLA Tamsulosin HCl (Tamsulosin Hcl 0.4 Mg Capsule) 0.4 mg PO BEDTIME [facility] Last Admin: 08/17/24 20:58 Dose: 0.4 mg Documented By: ANJU Vitamin D (Cholecalciferol (Vitamin D3) 25 Mcg Tablet) 50 mcg PO BEDTIME [facility] Last Admin: 08/17/24 20:58 Dose: 50 mcg Documented By: ANJU Labs 08/19/24 09:25 08/19/24 09:25 Labs: Laboratory Results - last 24 hr 08/17/24 08/18/24 08/18/24 20:44 07:15 11:06 POC Glucose 279 H 124 H 294 H 08/18/24 16:45 POC Glucose 230 H Microbiology Microbiology Results: Microbiology 08/12/24 14:23 Blood Culture - Final Blood - Venous No growth after 5 days. 08/12/24 14:10 Blood Culture - Final Blood - Venous No growth after 5 days. Assessment and Plan (1) Acute on chronic anemia: Status: Acute (2) Acute on chronic hypoxic respiratory failure: Status: Acute (3) Acute non-ST elevation myocardial infarction (NSTEMI): Status: Acute (4) Interstitial pulmonary disease, unspecified: Status: Acute Plan 83-year-old woman admitted with NSTEMI and acute congestive heart failure NSTEMI , medically treated, completed anticoagulation x 48hrs, echo ef nl 60 to 65%, severe pul HTN, seen by cardio. Medical management with ASA, statin acute on chronic hypoxic respiratory failure 2/2 Heart failure with preserved ejection fraction and likely aspiration, pna and severe pulmonary fibrosis. continue IV Lasix, oxygen as needed. Continue azithro, continue ceftriaxone Acute on chronic anemia, h/h stable. Monitor Acute LActic acidosis not due to sepsis, rhather hypoxia Asthma/COPD overlap syndrome/severe pulmonary fibrosis dry cough antitussin solumedrol consider pulmonologyu consultation Continue oxygen supplementation to keep oxygen saturation greater than 90% Constipation senna, colace, bisacodyl Hypertension Stable blood pressure continue losartan Diabetes mellitus type 2 Sliding scale, ADA diet Chronic thrombocytosis baseline DVT prophylaxis: lovneox Full code The patient will need overnight hospital stay for weaning down O2 and fluid status improvement pending final blood cultures Quality Stroke Does the patient have a stroke diagnosis?: No VTE Prior VTE?: No VTE Risk Level:: Medical - moderate - high VTE Device Contraindication: Treatment Not Indicated VTE Drug Contraindication: N/A - Med Ordered
[2024-08-18 21:23] LABS: Glucose, Whole Blood 198 mg/dL (60-115)
[2024-08-18] MEDS: Atorvastatin Calcium 40 MG TABLET PO (22:39)
[2024-08-18] MEDS: Cholecalciferol (Vitamin D3) 25 MCG TABLET 50 MCG PO (22:39)
[2024-08-18] MEDS: Gabapentin 300 MG CAPSULE PO (22:40)
[2024-08-18] MEDS: Tamsulosin HCL 0.4 MG CAPSULE PO (22:40)
[2024-08-18] MEDS: Magnesium Oxide 400 MG TABLET PO (22:40)
[2024-08-18] MEDS: Enoxaparin Sodium 40 MG/0.4 ML SYRINGE SUBCUT (22:41)
[2024-08-19] VITALS (15 sets, daily range): BP systolic 98–124; BP diastolic 54–64; PULSE 87–112; RESP 16–24; TEMP 36.1–36.6; O2SAT 90–100
--- NOTE | 2024-08-19 03:29 | PC.NURSE ---
Assumed care of this patient at 19:00. Pt is A&Ox4, forgetful at times. Grenadian speaking only, staff psychiatrist used at bedside. Pt was on 6L nc on assuming care. With collar worker, the pt and her reported the pt uses oxygen at home but were unable to recall how much oxygen at rest or with activity. During the 01:00 hour the patient was observed to have new desats in the upper 80?s on continuous spo2 monitoring. Cylinder Press Feeder responded to the room where the pt was observed sleeping in bed with her mouth open, breathing was even and unlabored without distress. Spo2 improved on waking the pt. The pt was placed on oxymask for mouth breathing during sleep. Oxygen titrated per MD order for spo2 90-95%, currently on 4L oxymask, pt tolerating well. Bed alarm on and safety measures in place. Call pierre is within reach and educated on use. Rings to make needs known. Please see shift assessments, tasks, and MAR for full details.
[2024-08-19] MEDS: Albuterol/Iprat 2.5/0.5MG 3 ML AMPUL.NEB INHALE ×4 (07:27→20:25)
[2024-08-19 07:54] LABS: Glucose, Whole Blood 169 mg/dL (60-115)
[2024-08-19] MEDS: Loratadine 10 MG TABLET PO (08:20)
[2024-08-19] MEDS: Benzonatate 100 MG CAPSULE 200 MG PO ×3 (08:20→22:16)
[2024-08-19] MEDS: bisacodyL 5 MG TABLET.DR 10 MG PO (08:20)
[2024-08-19] MEDS: Aspirin Enteric Coated 81 MG TABLET.DR PO (08:20)
[2024-08-19] MEDS: Insulin Lispro 100 UNIT/ML 3 ML VIAL SUBCUT ×4 (08:20→22:13)
[2024-08-19] MEDS: guaiFENesin DM 600/30 1 TAB TAB.ER.12H PO ×2 (08:20→22:17)
[2024-08-19] MEDS: DULoxetine HCl 60 MG CAPSULE.DR PO (08:20)
[2024-08-19] MEDS: cefTRIAXone sodium 1 GM VIAL IVPUSH (08:21)
[2024-08-19] MEDS: 0.9 % Sodium Chloride Flush 3 ML SYRINGE IVFLUSH ×2 (08:21→22:17)
[2024-08-19] MEDS: Azithromycin 500 MG in 0.9 % Sodium Chloride 250 ML 125 MG IV (08:21)
[2024-08-19] MEDS: methylPREDNISolone Sod Succ 40 MG/ML VIAL IVPUSH ×2 (08:22→22:13)
[2024-08-19 09:26] LABS: ABG Base Excess 15.2 mmol/L; ABG HCO3 41 mmol/L (22-26); ABG pCO2 57 mmHg (32-45); ABG pH 7.46 (7.35-7.45); ABG pO2 77 mmHg (83-108)
[2024-08-19 09:54] LABS: Hematocrit 33.5 % (37.0-47.0); Mean Corpuscular HGB Conc 29.9 g/dl (31.0-35.0); Mean Platelet Volume 9.4 fL (9.4-12.3); Platelet Count 877 X10*3/uL (160-400); Red Blood Count 3.85 X10*6/uL (4.20-5.50); Red Cell Distribution Width 17.1 % (11.0-16.0); White Blood Count 15.4 X10*3/uL (4.8-10.8)
[2024-08-19 10:29] LABS: Anion Gap 14 (12-20); Blood Urea Nitrogen 16 mg/dL (9-16); Carbon Dioxide 34 mmol/L (22-29); Chloride 96 mmol/L (96-108); Creatinine Clr Calc Pharmacy 56.6; Estimated Glomerular Filt Rate > 60; Glucose Random 296 mg/dL (60-115); Sodium 141 mmol/L (135-145)
[2024-08-19 10:46] LABS: B Type Natriuretic Peptide 678 pg/mL (<100)
[2024-08-19 11:17] LABS: Glucose, Whole Blood 267 mg/dL (60-115)
[2024-08-19] MEDS: mycophenolate mofetiL 250 MG CAPSULE 1000 MG PO ×2 (11:40→22:12)
[2024-08-19 12:09] LABS: ABG Refer to POC result
--- NOTE | 2024-08-19 13:22 | P.PNIM_ITS ---
Subjective Subjective Date of Service: 08/19/24 Interval History: Desaturation into 70s while eating and recovered quickly with increased O2 CXR and ABG done stat Physical Exam 2 Vital Signs: Vital Signs: Selected Entries 08/19/24 11:36 Temperature 97.4 F Pulse Rate 92 Respiratory Rate 16 Blood Pressure 124/64 Pulse Oximetry 97 Oxygen Delivery Me thod Nasal Cannula Const: Other: Constitutional : interactive, frail looking, in distress Cardiovascular : no JVP, no lower extremity edema Respiratory : bilateral chest movement,decrease air entry to basis, crackles , expiratory wheezes,in mild resp distress using accessory muscles Gastrointestinal: soft, lax, Non tender Skin : Warm, Dry Neurological : Alert & oriented to self and place, No focal deficit Objective Data Active Medications Acetaminophen (Acetaminophen 325 Mg Tablet) 650 mg PO Q6H PRN PRN Reason: Pain, Mild 1-3,fever,headache Albuterol Sulfate (Albuterol Sulfate (0.083%) 2.5 Mg/3 Ml Vial.Neb) 2.5 mg INHALE Q4H PRN PRN Reason: Shortness of Breath/Wheezing Albuterol/Ipratropium (Albuterol/Iprat 2.5/0.5mg 3 Ml Ampul.Neb) 3 ml INHALE RQ4H WHILE AWAKE [facility] Last Admin: 08/20/24 10:53 Dose: 3 ml Documented By: DEEPTHI Aspirin (Aspirin Enteric Coated 81 Mg Tablet.) 81 mg PO DAILY [facility] Last Admin: 08/20/24 08:45 Dose: 81 mg Documented By: MELISSA Atorvastatin Calcium (Atorvastatin Calcium 40 Mg Tablet) 40 mg PO BEDTIME [facility] Last Admin: 08/19/24 22:17 Dose: 40 mg Documented By: BRANDEE Benzonatate (Benzonatate 100 Mg Capsule) 200 mg PO TID [facility] Last Admin: 08/20/24 08:46 Dose: 200 mg Documented By: MELISSA Bisacodyl (Bisacodyl 5 Mg Tablet.) 10 mg PO DAILY [facility] Last Admin: 08/20/24 08:45 Dose: 10 mg Documented By: MELISSA Calcium Carbonate (Calcium Carbonate 750 Mg Tab.Chew) 750 mg PO Q4H PRN PRN Reason: Heartburn Ceftriaxone Sodium (Ceftriaxone Sodium 1 Gm Vial) 1 gm IVPUSH Q24H [facility] Last Admin: 08/19/24 08:21 Dose: 1 gm Documented By: MELISSA Docusate Sodium (Docusate Sodium 100 Mg Capsule) 100 mg PO BID [facility] Last Admin: 08/20/24 08:46 Dose: 100 mg Documented By: MELISSA Duloxetine HCl (Duloxetine Hcl 60 Mg Capsule.Dr) 60 mg PO DAILY [facility] Last Admin: 08/20/24 08:46 Dose: 60 mg Documented By: MELISSA Enoxaparin Sodium (Enoxaparin Sodium 40 Mg/0.4 Ml Syringe) 40 mg SUBCUT Q24H [facility] Last Admin: 08/19/24 22:16 Dose: 40 mg Documented By: BRANDEE Furosemide (Furosemide 40 Mg/4 Ml Vial) 40 mg IVPUSH DAILY [facility]; Protocol Last Admin: 08/20/24 08:44 Dose: 40 mg Documented By: MELISSA Gabapentin (Gabapentin 300 Mg Capsule) 300 mg PO BEDTIME [facility] Last Admin: 08/19/24 22:17 Dose: 300 mg Documented By: BRANDEE Guaifenesin (Guaifenesin 100 Mg/5 Ml 5 Ml Liquid) 5 ml PO Q4H PRN PRN Reason: Cough Last Admin: 08/15/24 02:08 Dose: 5 ml Documented By: FRANKY Guaifenesin/Dextromethorphan (Guaifenesin Dm 600/30 1 Tab Tab.Er.12h) 1 tab PO BID [facility] Last Admin: 08/20/24 08:46 Dose: 1 tab Documented By: MELISSA Azithromycin 500 mg/ Sodium (Chloride) 250 mls @ 125 mls/hr IV Q24H [facility] Last Admin: 08/20/24 08:42 Dose: 125 mls/hr Documented By: MELISSA Insulin Glargine (Insulin Glargine,Hum.Rec.Anlog 100 Unit/Ml 10 Ml Vial) 10 unit SUBCUT DAILY@1300 [facility] Last Admin: 08/20/24 12:21 Dose: 10 unit Documented By: MELISSA Insulin Human Lispro (Insulin Lispro 100 Unit/Ml 3 Ml Vial) 0 unit SUBCUT QIDACHS [facility]; Protocol Last Admin: 08/20/24 12:22 Dose: 6 unit Documented By: MELISSA Loratadine (Loratadine 10 Mg Tablet) 10 mg PO DAILY [facility] Last Admin: 08/20/24 08:46 Dose: 10 mg Documented By: MELISSA Losartan Potassium (Losartan Potassium 50 Mg Tablet) 50 mg PO DAILY [facility]; Protocol Last Admin: 08/20/24 08:46 Dose: 50 mg Documented By: MELISSA Magnesium Hydroxide (Milk Of Magnesia 30 Ml Oral.Susp) 30 ml PO DAILY PRN PRN Reason: Constipation Magnesium Oxide (Magnesium Oxide 400 Mg Tablet) 400 mg PO BEDTIME [facility] Last Admin: 08/19/24 22:16 Dose: 400 mg Documented By: BRANDEE Melatonin (Melatonin 3 Mg Tablet) 6 mg PO BEDTIME PRN PRN Reason: Insomnia Methylprednisolone Sodium Succinate (Methylprednisolone Sod Succ 40 Mg/Ml Vial) 40 mg IVPUSH BID [facility] Last Admin: 08/20/24 08:44 Dose: 40 mg Documented By: MELISSA Morphine Sulfate (Morphine Sulfate 2 Mg/Ml Cartridge) 0.5 mg IVPUSH Q4H PRN; Protocol PRN Reason: Chest Pain Last Admin: 08/12/24 17:22 Dose: 0.5 mg Documented By: TREE Mycophenolate Mofetil (Mycophenolate Mofetil 250 Mg Capsule) 1,000 mg PO BID [facility] Last Admin: 08/19/24 22:12 Dose: 1,000 mg Documented By: BRANDEE Ondansetron HCl (Ondansetron Hcl 4 Mg/2 Ml Vial) 4 mg IVPUSH Q8H PRN PRN Reason: Nausea and Vomiting Senna (Sennosides 8.6 Mg Tablet) 17.2 mg PO BEDTIME [facility] Last Admin: 08/19/24 22:17 Dose: 17.2 mg Documented By: BRANDEE Sodium Chloride (0.9 % Sodium Chloride Flush 3 Ml Syringe) 3 ml IVFLUSH QSHIFT [facility] Last Admin: 08/20/24 08:50 Dose: 3 ml Documented By: MELISSA Tamsulosin HCl (Tamsulosin Hcl 0.4 Mg Capsule) 0.4 mg PO BEDTIME [facility] Last Admin: 08/19/24 22:17 Dose: 0.4 mg Documented By: BRANDEE Vitamin D (Cholecalciferol (Vitamin D3) 25 Mcg Tablet) 50 mcg PO BEDTIME [facility] Last Admin: 08/19/24 22:17 Dose: 50 mcg Documented By: RBANDEE Labs 08/19/24 09:25 08/19/24 09:25 Labs: Laboratory Results - last 24 hr 08/19/24 08/19/24 08/19/24 16:18 19:54 20:42 VBG pH 7.55 H VBG pCO2 47 VBG pO2 196 VBG HCO3 42 H VBG O2 Saturation 100.0 VBG Base Excess 17.9 POC Glucose 286 H 203 H 08/20/24 08/20/24 07:19 11:25 VBG pH VBG pCO2 VBG pO2 VBG HCO3 VBG O2 Saturation VBG Base Excess POC Glucose 142 H 270 H Microbiology Microbiology Results: Microbiology 08/14/24 22:17 Blood Culture - Final Blood - Venous No growth after 5 days. 08/14/24 22:17 Blood Culture - Final Blood - Venous No growth after 5 days. Assessment and Plan (1) Acute on chronic anemia: Status: Acute (2) Acute on chronic hypoxic respiratory failure: Status: Acute (3) Acute non-ST elevation myocardial infarction (NSTEMI): Status: Acute (4) Interstitial pulmonary disease, unspecified: Status: Acute Plan 83-year-old woman admitted with NSTEMI and acute congestive heart failure acute on chronic hypoxic respiratory failure 2/2 Heart failure with preserved ejection fraction and likely aspiration, pna and severe pulmonary fibrosis, copd/asthma continues to be severe hypoxic and requires o2 at 6 liters or better continu IV lasix when BP tolerates continue Azithro and Ceftriaxone for now, dc after 7 days total Overall poor prognosis, will discuss with family ABG, CXR reviewed and no change in care NSTEMI , medically treated, completed anticoagulation x 48hrs, echo ef nl 60 to 65%, severe pul HTN, seen by cardio. Medical management with ASA, statin Acute on chronic anemia, h/h stable. Monitor Acute LActic acidosis not due to sepsis, rhather hypoxia Asthma/COPD overlap syndrome/severe pulmonary fibrosis dry cough antitussin solumedrol consider pulmonologyu consultation Continue oxygen supplementation to keep oxygen saturation greater than 90% Constipation senna, colace, bisacodyl Hypertension Stable blood pressure continue losartan Diabetes mellitus type 2 Sliding scale, ADA diet Chronic thrombocytosis baseline DVT prophylaxis: lovneox Full code The patient will need overnight hospital stay for weaning down O2 and fluid status improvement pending final blood cultures late entry note for 08/19 Quality Stroke Does the patient have a stroke diagnosis?: No VTE Prior VTE?: No VTE Risk Level:: Medical - moderate - high VTE Device Contraindication: Treatment Not Indicated VTE Drug Contraindication: N/A - Med Ordered
[2024-08-19] MEDS: Insulin Glargine,Hum.rec.anlog 100 UNIT/ML 10 ML VIAL 10 UNIT SUBCUT (13:40)
[2024-08-19 16:25] LABS: Glucose, Whole Blood 286 mg/dL (60-115)
[2024-08-19 20:38] LABS: Glucose, Whole Blood 203 mg/dL (60-115)
[2024-08-19 20:45] LABS: VBG Base Excess 17.9 mmol/L; VBG HCO3 42 mmol/L (22-26); VBG pCO2 47 mmHg; VBG pH 7.55 (7.32-7.43); VBG pO2 196 mmHg
[2024-08-19 20:46] LABS: Venous Blood Gas Refer to POC result
--- NOTE | 2024-08-19 21:11 | PM.EVENT ---
Event Note Date of Service: 08/19/24 Event Note: Nurse reported that patient desatted on 6 L when she was using the bed vidal. She was placed on non-rebreather initially but subsequently weaned down to 3 L by OxyMask. Patient asymptomatic throughout. Obtained chest x-ray and VBG. Time Spent With Patient Time: Total time managing care of this patient today ____ minutes.
[2024-08-19] MEDS: Magnesium Oxide 400 MG TABLET PO (22:16)
[2024-08-19] MEDS: Enoxaparin Sodium 40 MG/0.4 ML SYRINGE SUBCUT (22:16)
[2024-08-19] MEDS: Tamsulosin HCL 0.4 MG CAPSULE PO (22:17)
[2024-08-19] MEDS: Docusate Sodium 100 MG CAPSULE PO (22:17)
[2024-08-19] MEDS: Cholecalciferol (Vitamin D3) 25 MCG TABLET 50 MCG PO (22:17)
[2024-08-19] MEDS: Gabapentin 300 MG CAPSULE PO (22:17)
[2024-08-19] MEDS: Atorvastatin Calcium 40 MG TABLET PO (22:17)
[2024-08-19] MEDS: Sennosides 8.6 MG TABLET 17.2 MG PO (22:17)
[2024-08-20] VITALS (9 sets, daily range): BP systolic 111–131; BP diastolic 56–69; PULSE 20–105; RESP 18–30; TEMP 36.1–36.5; O2SAT 90–100
--- NOTE | 2024-08-20 02:56 | PC.NURSE ---
Assumed care of this patient at 19:00. Pt is A&Ox4. Pt was on 6L oxymask on assuming care. On rolling this pt to use the bedpan as requested in the evening late 19:00 hour, the pt desatted as low at the mid 50's with +VEGA, requiring NRB to improve spo2 to 100%. Respiratory therapy and covering Dr. Villead were immediately notified and to bedside. Lungs auscultated and course throughout. Vitals and scheduled POC were obtained. CXR and vbg ordered and obtained per MD. MD verbal order for spo2 goal 88-92% for hx of COPD, asthma, and pulmonary fibrosis. The patient was able to be weaned back to oxymask per spo2 goal. Breathing since even and unlabored without distress. Pt educated on purewick for voiding due to activity intolerance as evidenced by desats with prolonged speaking and rolling/repositioning, to which she was agreeable and the PW placed. Bearing Ring Assembler was used at bedside. Bed alarm on and safety measures in place. Please see shift assessments, tasks, and MAR for full details.
[2024-08-20] MEDS: Albuterol/Iprat 2.5/0.5MG 3 ML AMPUL.NEB INHALE ×3 (07:32→15:18)
[2024-08-20 07:36] LABS: Glucose, Whole Blood 142 mg/dL (60-115)
[2024-08-20] MEDS: Azithromycin 500 MG in 0.9 % Sodium Chloride 250 ML 125 MG IV (08:42)
[2024-08-20] MEDS: Furosemide 40 MG/4 ML VIAL IVPUSH (08:44)
[2024-08-20] MEDS: methylPREDNISolone Sod Succ 40 MG/ML VIAL IVPUSH ×2 (08:44→22:02)
[2024-08-20] MEDS: bisacodyL 5 MG TABLET.DR 10 MG PO (08:45)
[2024-08-20] MEDS: Aspirin Enteric Coated 81 MG TABLET.DR PO (08:45)
[2024-08-20] MEDS: Losartan Potassium 50 MG TABLET PO (08:46)
[2024-08-20] MEDS: guaiFENesin DM 600/30 1 TAB TAB.ER.12H PO ×2 (08:46→22:03)
[2024-08-20] MEDS: Docusate Sodium 100 MG CAPSULE PO ×2 (08:46→22:03)
[2024-08-20] MEDS: DULoxetine HCl 60 MG CAPSULE.DR PO (08:46)
[2024-08-20] MEDS: Benzonatate 100 MG CAPSULE 200 MG PO ×3 (08:46→22:02)
[2024-08-20] MEDS: Loratadine 10 MG TABLET PO (08:46)
[2024-08-20] MEDS: 0.9 % Sodium Chloride Flush 3 ML SYRINGE IVFLUSH ×2 (08:50→22:04)
--- NOTE | 2024-08-20 10:51 | PM.CNPUL ---
History of Present Illness History of Present Illness Consult date: 08/20/24 Chief complaint: NSTEMI, CHF Narrative: 83-year-old lady with underlying history of pulmonary fibrosis with chronic hypoxia on 4-8 L of supplemental oxygen, diastolic dysfunction, pulmonary hypertension, diabetes mellitus admitted on 08/12/2024 with progressive dyspnea and hypoxia. Patient has been treated for exacerbation of underlying congestive heart failure and likely pulmonary aspiration with minimal improvements. Review of Systems Constitutional: Constitutional: Denies daytime sleepiness, Denies excessive sweating, Denies fatigue, Denies fever(s), Denies lethargy, Denies malaise, Denies night sweats, Denies snoring and Reports weight loss Eyes: Eyes: Denies blurry vision and Denies itchy eyes ENT: Denies nasal congestion, Denies post nasal drip, Denies sinus pain, Denies sinus pressure and Denies other ( Thrush) Cardiovascular: Cardiovascular: Denies chest pain, Denies pedal edema, Denies dyspnea, Reports dyspnea on exertion, Denies orthopnea and Denies paroxysmal nocturnal dyspnea Respiratory: Respiratory: Denies cough, Denies hemoptysis, Denies excessive phlegm production, Denies dyspnea, Reports dyspnea on exertion, Denies snoring and Denies wheezing Gastrointestinal: Gastrointestinal: Denies abdominal pain and Denies heartburn Musculoskeletal: Musculoskeletal: Denies myalgias, Denies arthralgias and Denies joint swelling Integumentary/Breasts: Skin/Breast: Denies rash Neurologic: Denies memory loss and Denies seizure-like activity Psychiatric: Psychiatric: Denies abnormal sleep pattern, Denies anxiety and Denies memory loss Endocrine: Endocrine: Denies excessive sweating, Denies fatigue and Denies heat intolerance Hematologic/Lymphatic: Hematologic/Lymphatic: Denies easy bruising Allergic/Immunologic: Allergic/Immunologic: Denies itchy eyes, Denies seasonal rhinorrhea and Denies wheezing PMFSH Past Medical History Medical History Chest pain Pulmonary hypertension Hip pain, left Bilateral hip pain Pneumonitis Right lower quadrant abdominal pain Mass on back H/O thrombocytosis COPD with acute exacerbation Pneumonia Weakness Constipation Elevated WBC count Asthma-COPD overlap syndrome Chronic respiratory failure Generalized anxiety disorder Urinary incontinence CVA (cerebral vascular accident) Osteopenia Lumbar spinal stenosis Interstitial pulmonary fibrosis Insomnia Cystocele Hypertension Hypercholesterolemia Type 2 diabetes mellitus with hyperglycemia Family History Family History Mother No problems noted. Surgical History Surgical History Hx of section Social History Social History Household Members: Spouse and Children Housing: House Do you presently have visiting nurse or other home services: No Alcohol intake: never Patient Tobacco Use Status: Never used Tobacco Tobacco use type: Cigarette e-Cigarette/Vaping Use: Never Used Second Hand Smoke Exposure: Yes (Her father smoked around her in her youth) Advance Directives Date on File: 10/15/23 service: No Current occupational status: retired Cognitive needs: Yes ([employer] at home) Hearing needs: No Vision needs: Yes Meds Allergies Allergy/AdvReac Type Severity Reaction Status Date / Time No Known Allergies Allergy Verified 08/12/24 13:24 Active Medications: Current Medications Acetaminophen (Acetaminophen 325 Mg Tablet) 650 mg PO Q6H PRN PRN Reason: Pain, Mild 1-3,fever,headache Albuterol Sulfate (Albuterol Sulfate (0.083%) 2.5 Mg/3 Ml Vial.Neb) 2.5 mg INHALE Q4H PRN PRN Reason: Shortness of Breath/Wheezing Albuterol/Ipratropium (Albuterol/Iprat 2.5/0.5mg 3 Ml Ampul.Neb) 3 ml INHALE RQ4H WHILE AWAKE [facility] Last Admin: 08/20/24 07:32 Dose: 3 ml Aspirin (Aspirin Enteric Coated 81 Mg Tablet.) 81 mg PO DAILY [facility] Last Admin: 08/20/24 08:45 Dose: 81 mg Atorvastatin Calcium (Atorvastatin Calcium 40 Mg Tablet) 40 mg PO BEDTIME [facility] Last Admin: 08/19/24 22:17 Dose: 40 mg Benzonatate (Benzonatate 100 Mg Capsule) 200 mg PO TID [facility] Last Admin: 08/20/24 08:46 Dose: 200 mg Bisacodyl (Bisacodyl 5 Mg Tablet.) 10 mg PO DAILY [facility] Last Admin: 08/20/24 08:45 Dose: 10 mg Calcium Carbonate (Calcium Carbonate 750 Mg Tab.Chew) 750 mg PO Q4H PRN PRN Reason: Heartburn Ceftriaxone Sodium (Ceftriaxone Sodium 1 Gm Vial) 1 gm IVPUSH Q24H [facility] Last Admin: 08/19/24 08:21 Dose: 1 gm Docusate Sodium (Docusate Sodium 100 Mg Capsule) 100 mg PO BID [facility] Last Admin: 08/20/24 08:46 Dose: 100 mg Duloxetine HCl (Duloxetine Hcl 60 Mg Capsule.Dr) 60 mg PO DAILY [facility] Last Admin: 08/20/24 08:46 Dose: 60 mg Enoxaparin Sodium (Enoxaparin Sodium 40 Mg/0.4 Ml Syringe) 40 mg SUBCUT Q24H [facility] Last Admin: 08/19/24 22:16 Dose: 40 mg Furosemide (Furosemide 40 Mg/4 Ml Vial) 40 mg IVPUSH DAILY [facility]; Protocol Last Admin: 08/20/24 08:44 Dose: 40 mg Gabapentin (Gabapentin 300 Mg Capsule) 300 mg PO BEDTIME [facility] Last Admin: 08/19/24 22:17 Dose: 300 mg Guaifenesin (Guaifenesin 100 Mg/5 Ml 5 Ml Liquid) 5 ml PO Q4H PRN PRN Reason: Cough Last Admin: 08/15/24 02:08 Dose: 5 ml Guaifenesin/Dextromethorphan (Guaifenesin Dm 600/30 1 Tab Tab.Er.12h) 1 tab PO BID [facility] Last Admin: 08/20/24 08:46 Dose: 1 tab Azithromycin 500 mg/ Sodium (Chloride) 250 mls @ 125 mls/hr IV Q24H [facility] Last Admin: 08/20/24 08:42 Dose: 125 mls/hr Insulin Glargine (Insulin Glargine,Hum.Rec.Anlog 100 Unit/Ml 10 Ml Vial) 10 unit SUBCUT DAILY@1300 [facility] Last Admin: 08/19/24 13:40 Dose: 10 unit Insulin Human Lispro (Insulin Lispro 100 Unit/Ml 3 Ml Vial) 0 unit SUBCUT QIDACHS [facility]; Protocol Last Admin: 08/20/24 07:44 Dose: Not Given Loratadine (Loratadine 10 Mg Tablet) 10 mg PO DAILY [facility] Last Admin: 08/20/24 08:46 Dose: 10 mg Losartan Potassium (Losartan Potassium 50 Mg Tablet) 50 mg PO DAILY [facility]; Protocol Last Admin: 08/20/24 08:46 Dose: 50 mg Magnesium Hydroxide (Milk Of Magnesia 30 Ml Oral.Susp) 30 ml PO DAILY PRN PRN Reason: Constipation Magnesium Oxide (Magnesium Oxide 400 Mg Tablet) 400 mg PO BEDTIME [facility] Last Admin: 08/19/24 22:16 Dose: 400 mg Melatonin (Melatonin 3 Mg Tablet) 6 mg PO BEDTIME PRN PRN Reason: Insomnia Methylprednisolone Sodium Succinate (Methylprednisolone Sod Succ 40 Mg/Ml Vial) 40 mg IVPUSH BID [facility] Last Admin: 08/20/24 08:44 Dose: 40 mg Morphine Sulfate (Morphine Sulfate 2 Mg/Ml Cartridge) 0.5 mg IVPUSH Q4H PRN; Protocol PRN Reason: Chest Pain Last Admin: 08/12/24 17:22 Dose: 0.5 mg Mycophenolate Mofetil (Mycophenolate Mofetil 250 Mg Capsule) 1,000 mg PO BID [facility] Last Admin: 08/19/24 22:12 Dose: 1,000 mg Ondansetron HCl (Ondansetron Hcl 4 Mg/2 Ml Vial) 4 mg IVPUSH Q8H PRN PRN Reason: Nausea and Vomiting Senna (Sennosides 8.6 Mg Tablet) 17.2 mg PO BEDTIME [facility] Last Admin: 08/19/24 22:17 Dose: 17.2 mg Sodium Chloride (0.9 % Sodium Chloride Flush 3 Ml Syringe) 3 ml IVFLUSH QSHIFT [facility] Last Admin: 08/20/24 08:50 Dose: 3 ml Tamsulosin HCl (Tamsulosin Hcl 0.4 Mg Capsule) 0.4 mg PO BEDTIME [facility] Last Admin: 08/19/24 22:17 Dose: 0.4 mg Vitamin D (Cholecalciferol (Vitamin D3) 25 Mcg Tablet) 50 mcg PO BEDTIME [facility] Last Admin: 08/19/24 22:17 Dose: 50 mcg Home Medications ?Medication ?Instructions ?Recorded ?Confirmed ?Last Taken ?Type Oxygen Home Use 10/23/22 03/16/24 Unknown History tamsulosin 0.4 mg capsule 0.4 mg PO BEDTIME 02/24/24 08/12/24 08/11/24 History insulin glargine 100 unit/mL (3 10 unit subcut DAILY@1300 03/09/24 08/12/24 08/11/24 History mL) subcutaneous pen (Lantus Solostar U-100 Insulin) cholecalciferol (vitamin D3) 50 50 mcg PO BEDTIME 08/12/24 08/12/24 08/11/24 History mcg (2,000 unit) capsule loratadine 10 mg tablet 10 mg PO DAILY 08/12/24 08/12/24 08/11/24 History losartan 50 mg tablet 50 mg PO DAILY 08/12/24 08/12/24 08/11/24 History tramadol 50 mg tablet 50 mg PO BEDTIME pain 08/12/24 08/12/24 08/11/24 History Physical Exam Vital Signs: Vital Signs: Last Vital Signs Temp 96.9 F 08/20/24 07:21 Pulse 83 08/20/24 07:32 Resp 18 08/20/24 07:32 BP 130/68 08/20/24 07:21 Pulse Ox 100 08/20/24 07:21 O2 Del Method Humidified O2, Ox ymask 08/20/24 07:21 O2 Flow Rate 3 08/20/24 07:21 BMI result Body Mass Index 19.3 Const: General: no acute distress and alert Nutritional Appearance: malnourished Orientation/consciousness: Other orientation findings ( oriented) HEENT: Head: Yes atraumatic Eyes: General: appearance normal, both eyes and all related structures Sclerae: sclerae normal EOM: EOMs intact bilaterally Neck: Neck: Yes supple Lymphatic: no lymphadenopathy noted Resp: Effort & Inspection: normal respiratory effort and no use of accessory muscles Auscultation: clear to auscultation bilaterally Cardio: Rate: regular rate Rhythm: regular rhythm Heart sounds: no gallops, no murmurs and no rubs Skin: General skin exam: other ( warm) Extrem: General: No clubbing, No cyanosis and No edema Results Laboratory Findings 08/19/24 09:25 08/19/24 09:25 ABG, PT/INR, D-dimer: PT/INR, D-dimer PT 16.9 SEC (10.9-12.4) H 08/13/24 14:57 INR 1.4 (0.9-1.1) H 08/13/24 14:57 Abnormal lab findings: Abnormal Labs 08/12/24 08/12/24 08/12/24 13:49 13:50 13:53 WBC RBC 3.73 L Hgb 9.9 L Hct 32.7 L MCH 26.5 L MCHC 30.3 L RDW 17.1 H Plt Count 847 H MPV 8.9 L Immature Gran % (Auto) Neut % (Auto) 77.0 H Lymph % (Auto) 13.6 L Lymph # (Auto) 1.1 L Abs Immat Gran (auto) Absolute Neuts (auto) PT 21.6 H D INR 1.9 H APTT ABG pH at Pt Temp ABG pCO2 at Pt Temp ABG pO2 at Pt Temp ABG HCO3 VBG pH VBG HCO3 Potassium Chloride Carbon Dioxide Anion Gap BUN 17 H POC Glucose Random Glucose 165 H Lactic Acid 3.1 H* Lactic Acid F/U @ 2Hr Lactic Acid F/U @ 4Hr Iron TIBC % Saturation Total Bilirubin 1.2 H AST 167 H ALT 66 H Alkaline Phosphatase 204 H Troponin I High Sens 567.2 H* D B-Natriuretic Peptide 1641 H Total Protein 8.4 H Albumin Ur Specific [place] Urine Protein Urine Glucose (UA) 08/12/24 08/12/24 08/12/24 13:59 15:22 16:26 WBC RBC 3.31 L Hgb 8.7 L Hct 29.0 L MCH 26.3 L MCHC 30.0 L RDW 17.0 H Plt Count 777 H MPV 9.1 L Immature Gran % (Auto) Neut % (Auto) Lymph % (Auto) Lymph # (Auto) Abs Immat Gran (auto) Absolute Neuts (auto) PT 18.6 H INR 1.6 H APTT 24.3 L ABG pH at Pt Temp ABG pCO2 at Pt Temp ABG pO2 at Pt Temp ABG HCO3 VBG pH VBG HCO3 37 H Potassium Chloride Carbon Dioxide Anion Gap BUN POC Glucose Random Glucose Lactic Acid Lactic Acid F/U @ 2Hr 3.5 H* Lactic Acid F/U @ 4Hr Iron TIBC % Saturation Total Bilirubin AST ALT Alkaline Phosphatase Troponin I High Sens B-Natriuretic Peptide Total Protein Albumin Ur Specific [place] >= 1.030 H Urine Protein 100 (2+) H Urine Glucose (UA) 500 H 08/12/24 08/13/24 08/13/24 18:42 05:21 07:33 WBC RBC 3.41 L Hgb 8.9 L Hct 29.4 L MCH 26.1 L MCHC 30.3 L RDW 17.0 H Plt Count 743 H MPV 9.0 L Immature Gran % (Auto) Neut % (Auto) Lymph % (Auto) Lymph # (Auto) Abs Immat Gran (auto) Absolute Neuts (auto) PT INR APTT ABG pH at Pt Temp ABG pCO2 at Pt Temp ABG pO2 at Pt Temp ABG HCO3 VBG pH VBG HCO3 Potassium Chloride Carbon Dioxide 33 H Anion Gap BUN 21 H POC Glucose 245 H Random Glucose 300 H Lactic Acid Lactic Acid F/U @ 2Hr Lactic Acid F/U @ 4Hr 2.4 H* Iron TIBC % Saturation Total Bilirubin AST 133 H ALT 69 H Alkaline Phosphatase 261 H Troponin I High Sens B-Natriuretic Peptide 1606 H Total Protein Albumin 3.3 L Ur Specific [place] Urine Protein Urine Glucose (UA) 08/13/24 08/13/24 08/13/24 08:11 14:15 14:57 WBC RBC Hgb Hct MCH MCHC RDW Plt Count MPV Immature Gran % (Auto) Neut % (Auto) Lymph % (Auto) Lymph # (Auto) Abs Immat Gran (auto) Absolute Neuts (auto) PT 16.9 H INR 1.4 H APTT ABG pH at Pt Temp ABG pCO2 at Pt Temp ABG pO2 at Pt Temp ABG HCO3 VBG pH VBG HCO3 Potassium Chloride Carbon Dioxide Anion Gap BUN POC Glucose 243 H Random Glucose Lactic Acid Lactic Acid F/U @ 2Hr Lactic Acid F/U @ 4Hr Iron TIBC % Saturation Total Bilirubin AST ALT Alkaline Phosphatase Troponin I High Sens 437.0 H* B-Natriuretic Peptide Total Protein Albumin Ur Specific [place] Urine Protein Urine Glucose (UA) 08/14/24 08/14/24 08/14/24 06:44 11:45 16:36 WBC 11.9 H RBC 3.23 L Hgb 8.6 L Hct 27.8 L MCH 26.6 L MCHC 30.9 L RDW 16.9 H Plt Count 764 H MPV 9.2 L Immature Gran % (Auto) 0.7 H Neut % (Auto) 87.9 H Lymph % (Auto) 5.7 L Lymph # (Auto) 0.7 L Abs Immat Gran (auto) 0.08 H Absolute Neuts (auto) 10.5 H PT INR APTT ABG pH at Pt Temp ABG pCO2 at Pt Temp ABG pO2 at Pt Temp ABG HCO3 VBG pH VBG HCO3 Potassium Chloride 95 L Carbon Dioxide 37 H Anion Gap 9 L BUN 23 H POC Glucose 309 H 170 H Random Glucose 243 H Lactic Acid Lactic Acid F/U @ 2Hr Lactic Acid F/U @ 4Hr Iron TIBC % Saturation Total Bilirubin AST ALT Alkaline Phosphatase Troponin I High Sens B-Natriuretic Peptide 1429 H Total Protein Albumin Ur Specific [place] Urine Protein Urine Glucose (UA) 08/14/24 08/14/24 08/14/24 20:33 21:08 23:31 WBC RBC Hgb Hct MCH MCHC RDW Plt Count MPV Immature Gran % (Auto) Neut % (Auto) Lymph % (Auto) Lymph # (Auto) Abs Immat Gran (auto) Absolute Neuts (auto) PT INR APTT ABG pH at Pt Temp ABG pCO2 at Pt Temp ABG pO2 at Pt Temp ABG HCO3 VBG pH VBG HCO3 Potassium Chloride Carbon Dioxide Anion Gap BUN POC Glucose 295 H Random Glucose Lactic Acid 3.1 H* Lactic Acid F/U @ 2Hr 2.7 H* Lactic Acid F/U @ 4Hr Iron TIBC % Saturation Total Bilirubin AST ALT Alkaline Phosphatase Troponin I High Sens B-Natriuretic Peptide Total Protein Albumin Ur Specific [place] Urine Protein Urine Glucose (UA) 08/15/24 08/15/24 08/15/24 07:23 07:29 11:57 WBC 11.7 H RBC 2.99 L Hgb 7.8 L Hct 26.2 L MCH 26.1 L MCHC 29.8 L RDW 16.9 H Plt Count 751 H MPV 9.1 L Immature Gran % (Auto) 0.5 H Neut % (Auto) 86.6 H Lymph % (Auto) 8.1 L Lymph # (Auto) 1.0 L Abs Immat Gran (auto) 0.06 H Absolute Neuts (auto) 10.2 H PT INR APTT ABG pH at Pt Temp ABG pCO2 at Pt Temp ABG pO2 at Pt Temp ABG HCO3 VBG pH VBG HCO3 Potassium Chloride Carbon Dioxide 33 H Anion Gap BUN 25 H POC Glucose 138 H 162 H Random Glucose 143 H Lactic Acid Lactic Acid F/U @ 2Hr Lactic Acid F/U @ 4Hr Iron 19 L TIBC 220 L % Saturation 9 L Total Bilirubin AST ALT Alkaline Phosphatase Troponin I High Sens B-Natriuretic Peptide Total Protein Albumin Ur Specific [place] Urine Protein Urine Glucose (UA) 08/15/24 08/15/24 08/15/24 13:53 16:27 20:05 WBC 11.9 H RBC 3.19 L Hgb 8.4 L Hct 28.0 L MCH 26.3 L MCHC 30.0 L RDW 16.8 H Plt Count 793 H MPV 9.3 L Immature Gran % (Auto) Neut % (Auto) Lymph % (Auto) Lymph # (Auto) Abs Immat Gran (auto) Absolute Neuts (auto) PT INR APTT ABG pH at Pt Temp ABG pCO2 at Pt Temp ABG pO2 at Pt Temp ABG HCO3 VBG pH VBG HCO3 Potassium Chloride Carbon Dioxide Anion Gap BUN POC Glucose 186 H 221 H Random Glucose Lactic Acid Lactic Acid F/U @ 2Hr Lactic Acid F/U @ 4Hr Iron TIBC % Saturation Total Bilirubin AST ALT Alkaline Phosphatase Troponin I High Sens B-Natriuretic Peptide Total Protein Albumin Ur Specific [place] Urine Protein Urine Glucose (UA) 08/16/24 08/16/24 08/16/24 06:54 06:55 07:38 WBC 14.0 H RBC 3.33 L Hgb 8.7 L Hct 28.8 L MCH 26.1 L MCHC 30.2 L RDW 16.6 H Plt Count 757 H MPV 9.3 L Immature Gran % (Auto) Neut % (Auto) 88.1 H Lymph % (Auto) 6.8 L Lymph # (Auto) 1.0 L Abs Immat Gran (auto) 0.06 H Absolute Neuts (auto) 12.3 H PT INR APTT ABG pH at Pt Temp ABG pCO2 at Pt Temp ABG pO2 at Pt Temp ABG HCO3 VBG pH VBG HCO3 Potassium Chloride Carbon Dioxide 34 H Anion Gap 11 L BUN 24 H POC Glucose 151 H Random Glucose 127 H Lactic Acid Lactic Acid F/U @ 2Hr Lactic Acid F/U @ 4Hr Iron TIBC % Saturation Total Bilirubin AST ALT Alkaline Phosphatase Troponin I High Sens B-Natriuretic Peptide 1403 H Total Protein Albumin Ur Specific [place] Urine Protein Urine Glucose (UA) 08/16/24 08/16/24 08/16/24 11:28 16:15 20:36 WBC RBC Hgb Hct MCH MCHC RDW Plt Count MPV Immature Gran % (Auto) Neut % (Auto) Lymph % (Auto) Lymph # (Auto) Abs Immat Gran (auto) Absolute Neuts (auto) PT INR APTT ABG pH at Pt Temp ABG pCO2 at Pt Temp ABG pO2 at Pt Temp ABG HCO3 VBG pH VBG HCO3 Potassium Chloride Carbon Dioxide Anion Gap BUN POC Glucose 233 H 183 H 233 H Random Glucose Lactic Acid Lactic Acid F/U @ 2Hr Lactic Acid F/U @ 4Hr Iron TIBC % Saturation Total Bilirubin AST ALT Alkaline Phosphatase Troponin I High Sens B-Natriuretic Peptide Total Protein Albumin Ur Specific [place] Urine Protein Urine Glucose (UA) 08/17/24 08/17/24 08/17/24 06:37 07:24 11:15 WBC 12.8 H RBC 3.50 L Hgb 9.1 L Hct 30.2 L MCH 26.0 L MCHC 30.1 L RDW 16.7 H Plt Count 771 H MPV 8.9 L Immature Gran % (Auto) 0.5 H Neut % (Auto) 87.7 H Lymph % (Auto) 7.4 L Lymph # (Auto) 0.9 L Abs Immat Gran (auto) 0.06 H Absolute Neuts (auto) 11.2 H PT INR APTT ABG pH at Pt Temp ABG pCO2 at Pt Temp ABG pO2 at Pt Temp ABG HCO3 VBG pH VBG HCO3 Potassium Chloride Carbon Dioxide 33 H Anion Gap BUN 22 H POC Glucose 186 H 169 H Random Glucose 201 H Lactic Acid Lactic Acid F/U @ 2Hr Lactic Acid F/U @ 4Hr Iron TIBC % Saturation Total Bilirubin AST ALT Alkaline Phosphatase Troponin I High Sens B-Natriuretic Peptide Total Protein Albumin Ur Specific [place] Urine Protein Urine Glucose (UA) 08/17/24 08/17/24 08/18/24 16:05 20:44 07:15 WBC RBC Hgb Hct MCH MCHC RDW Plt Count MPV Immature Gran % (Auto) Neut % (Auto) Lymph % (Auto) Lymph # (Auto) Abs Immat Gran (auto) Absolute Neuts (auto) PT INR APTT ABG pH at Pt Temp ABG pCO2 at Pt Temp ABG pO2 at Pt Temp ABG HCO3 VBG pH VBG HCO3 Potassium Chloride Carbon Dioxide Anion Gap BUN POC Glucose 204 H 279 H 124 H Random Glucose Lactic Acid Lactic Acid F/U @ 2Hr Lactic Acid F/U @ 4Hr Iron TIBC % Saturation Total Bilirubin AST ALT Alkaline Phosphatase Troponin I High Sens B-Natriuretic Peptide Total Protein Albumin Ur Specific [place] Urine Protein Urine Glucose (UA) 08/18/24 08/18/24 08/18/24 11:06 16:45 21:17 WBC RBC Hgb Hct MCH MCHC RDW Plt Count MPV Immature Gran % (Auto) Neut % (Auto) Lymph % (Auto) Lymph # (Auto) Abs Immat Gran (auto) Absolute Neuts (auto) PT INR APTT ABG pH at Pt Temp ABG pCO2 at Pt Temp ABG pO2 at Pt Temp ABG HCO3 VBG pH VBG HCO3 Potassium Chloride Carbon Dioxide Anion Gap BUN POC Glucose 294 H 230 H 198 H Random Glucose Lactic Acid Lactic Acid F/U @ 2Hr Lactic Acid F/U @ 4Hr Iron TIBC % Saturation Total Bilirubin AST ALT Alkaline Phosphatase Troponin I High Sens B-Natriuretic Peptide Total Protein Albumin Ur Specific [place] Urine Protein Urine Glucose (UA) 08/19/24 08/19/24 08/19/24 07:44 09:22 09:25 WBC 15.4 H RBC 3.85 L Hgb 10.0 L Hct 33.5 L MCH 26.0 L MCHC 29.9 L RDW 17.1 H Plt Count 877 H MPV Immature Gran % (Auto) Neut % (Auto) Lymph % (Auto) Lymph # (Auto) Abs Immat Gran (auto) Absolute Neuts (auto) PT INR APTT ABG pH at Pt Temp 7.46 H ABG pCO2 at Pt Temp 57 H ABG pO2 at Pt Temp 77 L ABG HCO3 41 H VBG pH VBG HCO3 Potassium 3.0 L Chloride Carbon Dioxide 34 H Anion Gap BUN POC Glucose 169 H Random Glucose 296 H Lactic Acid Lactic Acid F/U @ 2Hr Lactic Acid F/U @ 4Hr Iron TIBC % Saturation Total Bilirubin AST ALT Alkaline Phosphatase Troponin I High Sens B-Natriuretic Peptide 678 H Total Protein Albumin Ur Specific [place] Urine Protein Urine Glucose (UA) 08/19/24 08/19/24 08/19/24 11:14 16:18 19:54 WBC RBC Hgb Hct MCH MCHC RDW Plt Count MPV Immature Gran % (Auto) Neut % (Auto) Lymph % (Auto) Lymph # (Auto) Abs Immat Gran (auto) Absolute Neuts (auto) PT INR APTT ABG pH at Pt Temp ABG pCO2 at Pt Temp ABG pO2 at Pt Temp ABG HCO3 VBG pH VBG HCO3 Potassium Chloride Carbon Dioxide Anion Gap BUN POC Glucose 267 H 286 H 203 H Random Glucose Lactic Acid Lactic Acid F/U @ 2Hr Lactic Acid F/U @ 4Hr Iron TIBC % Saturation Total Bilirubin AST ALT Alkaline Phosphatase Troponin I High Sens B-Natriuretic Peptide Total Protein Albumin Ur Specific [place] Urine Protein Urine Glucose (UA) 08/19/24 08/20/24 20:42 07:19 WBC RBC Hgb Hct MCH MCHC RDW Plt Count MPV Immature Gran % (Auto) Neut % (Auto) Lymph % (Auto) Lymph # (Auto) Abs Immat Gran (auto) Absolute Neuts (auto) PT INR APTT ABG pH at Pt Temp ABG pCO2 at Pt Temp ABG pO2 at Pt Temp ABG HCO3 VBG pH 7.55 H VBG HCO3 42 H Potassium Chloride Carbon Dioxide Anion Gap BUN POC Glucose 142 H Random Glucose Lactic Acid Lactic Acid F/U @ 2Hr Lactic Acid F/U @ 4Hr Iron TIBC % Saturation Total Bilirubin AST ALT Alkaline Phosphatase Troponin I High Sens B-Natriuretic Peptide Total Protein Albumin Ur Specific [place] Urine Protein Urine Glucose (UA) Microbiology: Microbiology 08/14/24 22:17 Blood - Venous Blood Culture - Final No growth after 5 days. 08/14/24 22:17 Blood - Venous Blood Culture - Final No growth after 5 days. 08/12/24 14:23 Blood - Venous Blood Culture - Final No growth after 5 days. 08/12/24 14:10 Blood - Venous Blood Culture - Final No growth after 5 days. Assessment and Plan (1) Pulmonary hypertension: Status: Acute (2) Congestive heart failure: Qualifiers: Heart failure chronicity: chronic Heart failure type: unspecified Qualified Code(s): I50.9 - Heart failure, unspecified Status: Acute (3) Interstitial pulmonary fibrosis: Status: Acute (4) Chronic respiratory failure: Qualifiers: Respiratory failure complication: hypoxia Qualified Code(s): J96.11 - Chronic respiratory failure with hypoxia Status: Acute Plan Impression: 83-year-old lady with underlying chronic respiratory failure with significant hypoxia requiring supplemental oxygen 4 L at rest and up to 8 L with exertion secondary to underlying pulmonary fibrosis, pulmonary hypertension likely secondary to lung disease, and diastolic dysfunction admitted with chest discomfort and progressive dyspnea, treated exacerbation of underlying congestive heart failure and possible pulmonary aspiration with minimal improvements. Recommendation: Unfortunately, patient appears to be at her baseline respiratory status with no significant improvements possible at this time. Would consider additional diuresis as tolerated, and possible empiric trial of sildenafil for underlying pulmonary hypertension, though efficacy would be unclear in pulmonary hypertension secondary to underlying lung disease. Procedures Date of Service Date of Service: 08/20/24
[2024-08-20 11:37] LABS: Glucose, Whole Blood 270 mg/dL (60-115)
[2024-08-20] MEDS: Insulin Glargine,Hum.rec.anlog 100 UNIT/ML 10 ML VIAL 10 UNIT SUBCUT (12:21)
[2024-08-20] MEDS: Insulin Lispro 100 UNIT/ML 3 ML VIAL SUBCUT ×3 (12:22→22:04)
--- NOTE | 2024-08-20 13:30 | PC.NURSE ---
This RN and MD at bedside with family to discuss goals of care. family decided to move forward with hospice at this time. pt stated she would like return to her home. family mentioned pt has hospital bed in home already.
--- NOTE | 2024-08-20 13:44 | P.PNIM_ITS ---
Subjective Subjective Date of Service: 08/20/24 Interval History: Pt continues to have episode with severe desaturation with minimal activity including eating but revovers with incrased in O2 Physical Exam 2 Vital Signs: Vital Signs: Last Vital Signs Temp 97.3 F 08/20/24 12:00 Pulse 101 H 08/20/24 12:00 Resp 24 H 08/20/24 12:00 BP 111/56 L 08/20/24 12:00 Pulse Ox 100 08/20/24 12:00 O2 Del Method Nasal Cannula, Hu midified O2 08/20/24 12:00 O2 Flow Rate 6 08/20/24 12:00 BMI result Body Mass Index 19.3 Const: Other: Constitutional : interactive, frail looking, in distress Cardiovascular : no JVP, no lower extremity edema Respiratory : bilateral chest movement,decrease air entry to basis, crackles , expiratory wheezes,in mild resp distress using accessory muscles Gastrointestinal: soft, lax, Non tender Skin : Warm, Dry Neurological : Alert & oriented to self and place, No focal deficit Objective Data Active Medications Acetaminophen (Acetaminophen 325 Mg Tablet) 650 mg PO Q6H PRN PRN Reason: Pain, Mild 1-3,fever,headache Albuterol Sulfate (Albuterol Sulfate (0.083%) 2.5 Mg/3 Ml Vial.Neb) 2.5 mg INHALE Q4H PRN PRN Reason: Shortness of Breath/Wheezing Albuterol/Ipratropium (Albuterol/Iprat 2.5/0.5mg 3 Ml Ampul.Neb) 3 ml INHALE RQ4H WHILE AWAKE [facility] Last Admin: 08/20/24 10:53 Dose: 3 ml Documented By: DEEPTHI Aspirin (Aspirin Enteric Coated 81 Mg Tablet.) 81 mg PO DAILY [facility] Last Admin: 08/20/24 08:45 Dose: 81 mg Documented By: MELISSA Atorvastatin Calcium (Atorvastatin Calcium 40 Mg Tablet) 40 mg PO BEDTIME [facility] Last Admin: 08/19/24 22:17 Dose: 40 mg Documented By: BRANDEE Benzonatate (Benzonatate 100 Mg Capsule) 200 mg PO TID [facility] Last Admin: 08/20/24 08:46 Dose: 200 mg Documented By: MELISSA Bisacodyl (Bisacodyl 5 Mg Tablet.) 10 mg PO DAILY [facility] Last Admin: 08/20/24 08:45 Dose: 10 mg Documented By: MELISSA Calcium Carbonate (Calcium Carbonate 750 Mg Tab.Chew) 750 mg PO Q4H PRN PRN Reason: Heartburn Ceftriaxone Sodium (Ceftriaxone Sodium 1 Gm Vial) 1 gm IVPUSH Q24H [facility] Last Admin: 08/19/24 08:21 Dose: 1 gm Documented By: MELISSA Docusate Sodium (Docusate Sodium 100 Mg Capsule) 100 mg PO BID [facility] Last Admin: 08/20/24 08:46 Dose: 100 mg Documented By: MELISSA Duloxetine HCl (Duloxetine Hcl 60 Mg Capsule.Dr) 60 mg PO DAILY [facility] Last Admin: 08/20/24 08:46 Dose: 60 mg Documented By: MELISSA Enoxaparin Sodium (Enoxaparin Sodium 40 Mg/0.4 Ml Syringe) 40 mg SUBCUT Q24H [facility] Last Admin: 08/19/24 22:16 Dose: 40 mg Documented By: BRANDEE Furosemide (Furosemide 40 Mg/4 Ml Vial) 40 mg IVPUSH DAILY [facility]; Protocol Last Admin: 08/20/24 08:44 Dose: 40 mg Documented By: MELISSA Gabapentin (Gabapentin 300 Mg Capsule) 300 mg PO BEDTIME [facility] Last Admin: 08/19/24 22:17 Dose: 300 mg Documented By: BRANDEE Guaifenesin (Guaifenesin 100 Mg/5 Ml 5 Ml Liquid) 5 ml PO Q4H PRN PRN Reason: Cough Last Admin: 08/15/24 02:08 Dose: 5 ml Documented By: FRANKY Guaifenesin/Dextromethorphan (Guaifenesin Dm 600/30 1 Tab Tab.Er.12h) 1 tab PO BID [facility] Last Admin: 08/20/24 08:46 Dose: 1 tab Documented By: MELISSA Azithromycin 500 mg/ Sodium (Chloride) 250 mls @ 125 mls/hr IV Q24H [facility] Last Admin: 08/20/24 08:42 Dose: 125 mls/hr Documented By: MELISSA Insulin Glargine (Insulin Glargine,Hum.Rec.Anlog 100 Unit/Ml 10 Ml Vial) 10 unit SUBCUT DAILY@1300 [facility] Last Admin: 08/20/24 12:21 Dose: 10 unit Documented By: MELISSA Insulin Human Lispro (Insulin Lispro 100 Unit/Ml 3 Ml Vial) 0 unit SUBCUT QIDACHS [facility]; Protocol Last Admin: 08/20/24 12:22 Dose: 6 unit Documented By: MELISSA Loratadine (Loratadine 10 Mg Tablet) 10 mg PO DAILY [facility] Last Admin: 08/20/24 08:46 Dose: 10 mg Documented By: MELISSA Losartan Potassium (Losartan Potassium 50 Mg Tablet) 50 mg PO DAILY [facility]; Protocol Last Admin: 08/20/24 08:46 Dose: 50 mg Documented By: MELISSA Magnesium Hydroxide (Milk Of Magnesia 30 Ml Oral.Susp) 30 ml PO DAILY PRN PRN Reason: Constipation Magnesium Oxide (Magnesium Oxide 400 Mg Tablet) 400 mg PO BEDTIME [facility] Last Admin: 08/19/24 22:16 Dose: 400 mg Documented By: BRANDEE Melatonin (Melatonin 3 Mg Tablet) 6 mg PO BEDTIME PRN PRN Reason: Insomnia Methylprednisolone Sodium Succinate (Methylprednisolone Sod Succ 40 Mg/Ml Vial) 40 mg IVPUSH BID [facility] Last Admin: 08/20/24 08:44 Dose: 40 mg Documented By: MELISSA Morphine Sulfate (Morphine Sulfate 2 Mg/Ml Cartridge) 0.5 mg IVPUSH Q4H PRN; Protocol PRN Reason: Chest Pain Last Admin: 08/12/24 17:22 Dose: 0.5 mg Documented By: TREE Mycophenolate Mofetil (Mycophenolate Mofetil 250 Mg Capsule) 1,000 mg PO BID [facility] Last Admin: 08/19/24 22:12 Dose: 1,000 mg Documented By: BRANDEE Ondansetron HCl (Ondansetron Hcl 4 Mg/2 Ml Vial) 4 mg IVPUSH Q8H PRN PRN Reason: Nausea and Vomiting Senna (Sennosides 8.6 Mg Tablet) 17.2 mg PO BEDTIME [facility] Last Admin: 08/19/24 22:17 Dose: 17.2 mg Documented By: BRANDEE Sodium Chloride (0.9 % Sodium Chloride Flush 3 Ml Syringe) 3 ml IVFLUSH QSHIFT [facility] Last Admin: 08/20/24 08:50 Dose: 3 ml Documented By: MELISSA Tamsulosin HCl (Tamsulosin Hcl 0.4 Mg Capsule) 0.4 mg PO BEDTIME [facility] Last Admin: 08/19/24 22:17 Dose: 0.4 mg Documented By: BRANDEE Vitamin D (Cholecalciferol (Vitamin D3) 25 Mcg Tablet) 50 mcg PO BEDTIME [facility] Last Admin: 08/19/24 22:17 Dose: 50 mcg Documented By: BRANDEE Labs 08/19/24 09:25 08/19/24 09:25 Labs: Laboratory Results - last 24 hr 08/19/24 08/19/24 08/19/24 16:18 19:54 20:42 VBG pH 7.55 H VBG pCO2 47 VBG pO2 196 VBG HCO3 42 H VBG O2 Saturation 100.0 VBG Base Excess 17.9 POC Glucose 286 H 203 H 08/20/24 08/20/24 07:19 11:25 VBG pH VBG pCO2 VBG pO2 VBG HCO3 VBG O2 Saturation VBG Base Excess POC Glucose 142 H 270 H Microbiology Microbiology Results: Microbiology 08/14/24 22:17 Blood Culture - Final Blood - Venous No growth after 5 days. 08/14/24 22:17 Blood Culture - Final Blood - Venous No growth after 5 days. Assessment and Plan (1) Acute on chronic anemia: Status: Acute (2) Acute on chronic hypoxic respiratory failure: Status: Acute (3) Acute non-ST elevation myocardial infarction (NSTEMI): Status: Acute (4) Interstitial pulmonary disease, unspecified: Status: Acute Plan 83-year-old woman admitted with NSTEMI and acute congestive heart failure acute and chronic hypoxic respiratory failure due to severe pulmonary fibrosis, asthma/copd overlap, heart failure, pulmonary HTN and suspected pneumonia continues to be severe hypoxic and requires o2 at 6 liters or better continu IV lasix when BP tolerates IV steroid, DC Azithro, has completed 5 days, Ceftriaxone for 1 more day. Overall poor prognosis, hospice discussed with family NSTEMI , medically treated, completed anticoagulation x 48hrs, echo ef nl 60 to 65%, severe pul HTN, seen by cardio. Medical management with ASA, statin Acute on chronic anemia, h/h stable. Monitor Acute LActic acidosis not due to sepsis, rhather hypoxia Asthma/COPD overlap syndrome/severe pulmonary fibrosis dry cough antitussin solumedrol consider pulmonologyu consultation Continue oxygen supplementation to keep oxygen saturation greater than 90% Constipation senna, colace, bisacodyl Hypertension Stable blood pressure continue losartan Diabetes mellitus type 2 Sliding scale, ADA diet Chronic thrombocytosis baseline DVT prophylaxis: lovneox Full code Anticipated discharge in 1 to2 days to home with hospice Quality Stroke Does the patient have a stroke diagnosis?: No VTE Prior VTE?: No VTE Risk Level:: Medical - moderate - high VTE Device Contraindication: Treatment Not Indicated VTE Drug Contraindication: N/A - Med Ordered
--- NOTE | 2024-08-20 13:52 | W.MHC.ACPN ---
Advanced Care Planning Note Advanced Care Planning Note Time spent (in minutes): 18 Narrative: I had a [id number] conversation with the patient, her daughters, son, and at the bedside regarding her advanced and complicated lung disease, including severe pulmonary fibrosis, pulmonary hypertension, heart failure, asthma/COPD overlap syndrome, and superimposed pneumonia. They understand that her condition is terminal and that there are no further curative options available at this time. Given this, we believe hospice care is a reasonable transition. The family is open to hospice care at home, and a hospice consultation has been arranged. She may be discharged home as soon as tomorrow. The conversation was witnessed by MARINO Zimmerman. They have previously agreed to CPR but declined intubation. Problems Discussed (1) Acute on chronic anemia: (2) Acute on chronic hypoxic respiratory failure: (3) Acute non-ST elevation myocardial infarction (NSTEMI): (4) Interstitial pulmonary disease, unspecified:
[2024-08-20 15:00] LABS: Hematocrit 36.2 % (37.0-47.0); Hemoglobin 10.8 g/dl (12.0-16.0); Mean Corpuscular HGB Conc 29.8 g/dl (31.0-35.0); Mean Corpuscular Hemoglobin 26.1 pg (27.0-33.0); Mean Corpuscular Volume 87.4 fL (80.0-98.0); Platelet Count 910 X10*3/uL (160-400); Red Blood Count 4.14 X10*6/uL (4.20-5.50); Red Cell Distribution Width 17.2 % (11.0-16.0); White Blood Count 11.9 X10*3/uL (4.8-10.8)
[2024-08-20 15:17] LABS: Anion Gap 15 (12-20); Blood Urea Nitrogen 18 mg/dL (9-16); Calcium 9.1 mg/dL (8.4-10.2); Carbon Dioxide 34 mmol/L (22-29); Chloride 96 mmol/L (96-108); Creatinine Clr Calc Pharmacy 45.9; Estimated Glomerular Filt Rate > 60; Glucose Random 348 mg/dL (60-115); Magnesium 1.8 mg/dL (1.6-2.6); Potassium 3.6 mmol/L (3.3-5.1); Sodium 141 mmol/L (135-145)
[2024-08-20] MEDS: cefTRIAXone sodium 1 GM VIAL IVPUSH (15:58)
[2024-08-20 16:58] LABS: Glucose, Whole Blood 305 mg/dL (60-115)
[2024-08-20 21:27] LABS: Glucose, Whole Blood 229 mg/dL (60-115)
[2024-08-20] MEDS: mycophenolate mofetiL 250 MG CAPSULE 1000 MG PO (22:02)
[2024-08-20] MEDS: Cholecalciferol (Vitamin D3) 25 MCG TABLET 50 MCG PO (22:03)
[2024-08-20] MEDS: Sennosides 8.6 MG TABLET 17.2 MG PO (22:03)
[2024-08-20] MEDS: Gabapentin 300 MG CAPSULE PO (22:03)
[2024-08-20] MEDS: Tamsulosin HCL 0.4 MG CAPSULE PO (22:03)
[2024-08-20] MEDS: Atorvastatin Calcium 40 MG TABLET PO (22:03)
[2024-08-20] MEDS: Magnesium Oxide 400 MG TABLET PO (22:03)
[2024-08-20] MEDS: Enoxaparin Sodium 40 MG/0.4 ML SYRINGE SUBCUT (22:03)
[2024-08-21] VITALS (7 sets, daily range): BP systolic 100–111; BP diastolic 53–66; PULSE 83–97; RESP 16–26; TEMP 36.1–36.8; O2SAT 96–100
[2024-08-21 07:36] LABS: Glucose, Whole Blood 238 mg/dL (60-115)
[2024-08-21] MEDS: Insulin Lispro 100 UNIT/ML 3 ML VIAL SUBCUT ×4 (08:14→20:47)
[2024-08-21] MEDS: mycophenolate mofetiL 250 MG CAPSULE 1000 MG PO ×2 (08:15→20:46)
[2024-08-21] MEDS: Aspirin Enteric Coated 81 MG TABLET.DR PO (08:15)
[2024-08-21] MEDS: methylPREDNISolone Sod Succ 40 MG/ML VIAL IVPUSH ×2 (08:15→20:46)
[2024-08-21] MEDS: Furosemide 40 MG/4 ML VIAL IVPUSH (08:15)
[2024-08-21] MEDS: bisacodyL 5 MG TABLET.DR 10 MG PO (08:16)
[2024-08-21] MEDS: DULoxetine HCl 60 MG CAPSULE.DR PO (08:17)
[2024-08-21] MEDS: Docusate Sodium 100 MG CAPSULE PO ×2 (08:17→20:47)
[2024-08-21] MEDS: Loratadine 10 MG TABLET PO (08:17)
[2024-08-21] MEDS: Benzonatate 100 MG CAPSULE 200 MG PO ×3 (08:17→20:46)
[2024-08-21] MEDS: guaiFENesin DM 600/30 1 TAB TAB.ER.12H PO ×2 (08:17→20:47)
[2024-08-21] MEDS: Losartan Potassium 50 MG TABLET PO (08:19)
[2024-08-21] MEDS: 0.9 % Sodium Chloride Flush 3 ML SYRINGE IVFLUSH ×3 (08:20→20:47)
[2024-08-21] MEDS: Azithromycin 500 MG in 0.9 % Sodium Chloride 250 ML 125 MG IV (08:20)
[2024-08-21 11:27] LABS: Glucose, Whole Blood 217 mg/dL (60-115)
[2024-08-21] MEDS: Insulin Glargine,Hum.rec.anlog 100 UNIT/ML 10 ML VIAL 10 UNIT SUBCUT (12:18)
--- NOTE | 2024-08-21 13:53 | P.PNIM_ITS ---
Subjective Subjective Date of Service: 08/21/24 Interval History: No new issues, stable. Meeting with Hospice today Physical Exam 2 Vital Signs: Vital Signs: Last Vital Signs Temp 97.4 F 08/21/24 10:59 Pulse 96 08/21/24 10:59 Resp 16 08/21/24 10:59 BP 105/60 08/21/24 10:59 Pulse Ox 100 08/21/24 10:59 O2 Del Method Nasal Cannula 08/21/24 10:59 O2 Flow Rate 8 08/21/24 10:59 BMI result Body Mass Index 19.3 Const: Other: Constitutional : interactive, frail looking, in distress Cardiovascular : no JVP, no lower extremity edema Respiratory : bilateral chest movement,decrease air entry to basis, crackles , expiratory wheezes,in mild resp distress using accessory muscles Gastrointestinal: soft, lax, Non tender Skin : Warm, Dry Neurological : Alert & oriented to self and place, No focal deficit Objective Data Active Medications Acetaminophen (Acetaminophen 325 Mg Tablet) 650 mg PO Q6H PRN PRN Reason: Pain, Mild 1-3,fever,headache Aspirin (Aspirin Enteric Coated 81 Mg Tablet.) 81 mg PO DAILY [facility] Last Admin: 08/21/24 08:15 Dose: 81 mg Documented By: BOB Atorvastatin Calcium (Atorvastatin Calcium 40 Mg Tablet) 40 mg PO BEDTIME [facility] Last Admin: 08/20/24 22:03 Dose: 40 mg Documented By: ANJU Benzonatate (Benzonatate 100 Mg Capsule) 200 mg PO TID [facility] Last Admin: 08/21/24 08:17 Dose: 200 mg Documented By: BOB Bisacodyl (Bisacodyl 5 Mg Tablet.) 10 mg PO DAILY [facility] Last Admin: 08/21/24 08:16 Dose: 10 mg Documented By: BOB Calcium Carbonate (Calcium Carbonate 750 Mg Tab.Chew) 750 mg PO Q4H PRN PRN Reason: Heartburn Ceftriaxone Sodium (Ceftriaxone Sodium 1 Gm Vial) 1 gm IVPUSH Q24H [facility] Last Admin: 08/20/24 15:58 Dose: 1 gm Documented By: FOSTEKR Docusate Sodium (Docusate Sodium 100 Mg Capsule) 100 mg PO BID [facility] Last Admin: 08/21/24 08:17 Dose: 100 mg Documented By: BOB Duloxetine HCl (Duloxetine Hcl 60 Mg Capsule.Dr) 60 mg PO DAILY [facility] Last Admin: 08/21/24 08:17 Dose: 60 mg Documented By: BOB Enoxaparin Sodium (Enoxaparin Sodium 40 Mg/0.4 Ml Syringe) 40 mg SUBCUT Q24H [facility] Last Admin: 08/20/24 22:03 Dose: 40 mg Documented By: ANJU Furosemide (Furosemide 40 Mg/4 Ml Vial) 40 mg IVPUSH DAILY [facility]; Protocol Last Admin: 08/21/24 08:15 Dose: 40 mg Documented By: BOB Gabapentin (Gabapentin 300 Mg Capsule) 300 mg PO BEDTIME [facility] Last Admin: 08/20/24 22:03 Dose: 300 mg Documented By: ANJU Guaifenesin (Guaifenesin 100 Mg/5 Ml 5 Ml Liquid) 5 ml PO Q4H PRN PRN Reason: Cough Last Admin: 08/15/24 02:08 Dose: 5 ml Documented By: FRANKY Guaifenesin/Dextromethorphan (Guaifenesin Dm 600/30 1 Tab Tab.Er.12h) 1 tab PO BID [facility] Last Admin: 08/21/24 08:17 Dose: 1 tab Documented By: BOB Azithromycin 500 mg/ Sodium (Chloride) 250 mls @ 125 mls/hr IV Q24H [facility] Last Infusion: 08/21/24 10:49 Dose: Infused Documented By: BOB Insulin Glargine (Insulin Glargine,Hum.Rec.Anlog 100 Unit/Ml 10 Ml Vial) 10 unit SUBCUT DAILY@1300 [facility] Last Admin: 08/21/24 12:18 Dose: 10 unit Documented By: MANDEEP Insulin Human Lispro (Insulin Lispro 100 Unit/Ml 3 Ml Vial) 0 unit SUBCUT QIDACHS [facility]; Protocol Last Admin: 08/21/24 12:16 Dose: 4 unit Documented By: MANDEEP Loratadine (Loratadine 10 Mg Tablet) 10 mg PO DAILY [facility] Last Admin: 08/21/24 08:17 Dose: 10 mg Documented By: BOB Losartan Potassium (Losartan Potassium 50 Mg Tablet) 50 mg PO DAILY [facility]; Protocol Last Admin: 08/21/24 08:19 Dose: 50 mg Documented By: BOB Magnesium Hydroxide (Milk Of Magnesia 30 Ml Oral.Susp) 30 ml PO DAILY PRN PRN Reason: Constipation Magnesium Oxide (Magnesium Oxide 400 Mg Tablet) 400 mg PO BEDTIME [facility] Last Admin: 08/20/24 22:03 Dose: 400 mg Documented By: ANJU Melatonin (Melatonin 3 Mg Tablet) 6 mg PO BEDTIME PRN PRN Reason: Insomnia Methylprednisolone Sodium Succinate (Methylprednisolone Sod Succ 40 Mg/Ml Vial) 40 mg IVPUSH BID [facility] Last Admin: 08/21/24 08:15 Dose: 40 mg Documented By: BOB Morphine Sulfate (Morphine Sulfate 2 Mg/Ml Cartridge) 0.5 mg IVPUSH Q4H PRN; Protocol PRN Reason: Chest Pain Last Admin: 08/12/24 17:22 Dose: 0.5 mg Documented By: TREE Mycophenolate Mofetil (Mycophenolate Mofetil 250 Mg Capsule) 1,000 mg PO BID [facility] Last Admin: 08/21/24 08:15 Dose: 1,000 mg Documented By: BOB Ondansetron HCl (Ondansetron Hcl 4 Mg/2 Ml Vial) 4 mg IVPUSH Q8H PRN PRN Reason: Nausea and Vomiting Senna (Sennosides 8.6 Mg Tablet) 17.2 mg PO BEDTIME [facility] Last Admin: 08/20/24 22:03 Dose: 17.2 mg Documented By: ANJU Sodium Chloride (0.9 % Sodium Chloride Flush 3 Ml Syringe) [facility] Last Admin: 08/21/24 08:20 Dose: 3 ml Documented By: BOB Tamsulosin HCl (Tamsulosin Hcl 0.4 Mg Capsule) 0.4 mg PO BEDTIME [facility] Last Admin: 08/20/24 22:03 Dose: 0.4 mg Documented By: ANJU Vitamin D (Cholecalciferol (Vitamin D3) 25 Mcg Tablet) 50 mcg PO BEDTIME [facility] Last Admin: 08/20/24 22:03 Dose: 50 mcg Documented By: ANJU Labs 08/20/24 14:52 08/20/24 14:52 Labs: Laboratory Results - last 24 hr 08/20/24 08/20/24 08/20/24 14:52 16:32 21:18 MCV 87.4 MCH 26.1 L MCHC 29.8 L RDW 17.2 H Plt Count 910 H MPV 9.0 L Absolute Nucleated RBC 0.000 Nucleated RBC % (auto) 0.0 Anion Gap 15 Estim Creat Clear Calc 45.9 Estimated GFR > 60 POC Glucose 305 H 229 H Random Glucose 348 H Calcium 9.1 Magnesium 1.8 08/21/24 08/21/24 07:08 11:02 MCV MCH MCHC RDW Plt Count MPV Absolute Nucleated RBC Nucleated RBC % (auto) Anion Gap Estim Creat Clear Calc Estimated GFR POC Glucose 238 H 217 H Random Glucose Calcium Magnesium Assessment and Plan (1) Acute on chronic anemia: Status: Acute (2) Acute on chronic hypoxic respiratory failure: Status: Acute (3) Acute non-ST elevation myocardial infarction (NSTEMI): Status: Acute (4) Interstitial pulmonary disease, unspecified: Status: Acute Plan 83-year-old woman admitted with NSTEMI and acute congestive heart failure acute and chronic hypoxic respiratory failure due to severe pulmonary fibrosis, asthma/copd overlap, heart failure, pulmonary HTN and suspected pneumonia continues to be severe hypoxic and requires o2 at 6 liters or better continu IV lasix when BP tolerates IV steroid, DC Azithro, has completed 5 days, Ceftriaxone for 1 more day. Overall poor prognosis, hospice discussed with family and opted for hospice at home NSTEMI , medically treated, completed anticoagulation x 48hrs, echo ef nl 60 to 65%, severe pul HTN, seen by cardio. Medical management with ASA, statin Acute on chronic anemia, h/h stable. Monitor Acute LActic acidosis not due to sepsis, rhather hypoxia Asthma/COPD overlap syndrome/severe pulmonary fibrosis dry cough antitussin solumedrol consider pulmonologyu consultation Continue oxygen supplementation to keep oxygen saturation greater than 90% Constipation senna, colace, bisacodyl Hypertension Stable blood pressure continue losartan Diabetes mellitus type 2 Sliding scale, ADA diet Chronic thrombocytosis baseline DVT prophylaxis: lovneox Full code Anticipated discharge to home with hospice tomorrow Quality Stroke Does the patient have a stroke diagnosis?: No VTE Prior VTE?: No VTE Risk Level:: Medical - moderate - high VTE Device Contraindication: Treatment Not Indicated VTE Drug Contraindication: N/A - Med Ordered
--- NOTE | 2024-08-21 15:10 | MHC.CM.PN ---
Per rounds and discussion with family and [facility], pt. will DC to her dtr's home in [place] tomorrow with family care and Hospice services.
[2024-08-21] MEDS: cefTRIAXone sodium 1 GM VIAL IVPUSH (16:20)
[2024-08-21 16:25] LABS: Glucose, Whole Blood 182 mg/dL (60-115)
[2024-08-21] MEDS: Acetaminophen 325 MG TABLET 650 MG PO (16:27)
[2024-08-21 20:34] LABS: Glucose, Whole Blood 221 mg/dL (60-115)
[2024-08-21] MEDS: Enoxaparin Sodium 40 MG/0.4 ML SYRINGE SUBCUT (20:46)
[2024-08-21] MEDS: Sennosides 8.6 MG TABLET 17.2 MG PO (20:46)
[2024-08-21] MEDS: Atorvastatin Calcium 40 MG TABLET PO (20:46)
[2024-08-21] MEDS: Magnesium Oxide 400 MG TABLET PO (20:46)
[2024-08-21] MEDS: Gabapentin 300 MG CAPSULE PO (20:47)
[2024-08-21] MEDS: Cholecalciferol (Vitamin D3) 25 MCG TABLET 50 MCG PO (20:47)
[2024-08-21] MEDS: Tamsulosin HCL 0.4 MG CAPSULE PO (20:47)
[2024-08-22 04:00] VITALS: BP 108/59; PULSE 83; RESP 18; TEMP 36.1; O2SAT 100
[2024-08-22 07:10] LABS: Glucose, Whole Blood 147 mg/dL (60-115)
[2024-08-22 07:18] VITALS: BP 113/61; PULSE 86; RESP 20; TEMP 36.4; O2SAT 100
--- NOTE | 2024-08-22 07:21 | P.DS_ITS ---
DS: Providers Provider Date of Service: 08/22/24 Date of admission: 08/12/24 15:37 Date of discharge: 08/22/24 Primary care physician: Ciro Daniel MD Consults: 08/12/24 15:37 Consult to Cardiology Routine Consulting Provider: [facility] Reason for consultation: NSTEMI, CHF 08/20/24 10:23 Consult to Pulmonology Routine Consulting Provider: [facility] Reason for consultation: advanced pulmonary fibrosis DS: Diagnosis Discharge Diagnosis (1) Acute on chronic anemia: Status: Acute (2) Acute on chronic hypoxic respiratory failure: Status: Acute (3) Acute non-ST elevation myocardial infarction (NSTEMI): Status: Acute (4) Interstitial pulmonary disease, unspecified: Status: Acute DS: Summary Hospital Course Hospital Course: admission hpi Chief Complaint: Chest pain 83 year old women presenting with chest pain. Patient lives with her daughter and is mostly chair/bedbound due to lung disease and hypoxia. She reports chest substernal chest pain worse with coughing without radiation. She also reports constipation of several days. She has chronic lung disease and is on oxygen at all times. Chest x-ray showed changes of pulmonary fibrosis. Troponin and BNP elevated. She received Therapeutic lovenox dose as well as aspirin, solumedrol, IV magnesium, albuterol and rocephin. She will be admitted for further management and treatment of NSTEMI and CHF hospital course: 83/F with severe pulmonary HTN, severe pulmonary fibrosis, and asthma/COPD presented with hypoxia and general malaise. She was found to have NSTEMI, pneumonia, and an exacerbation of COPD/asthma overlap and pulmonary fibrosis, leading to acute hypoxic respiratory failure on top of her baseline chronic respiratory failure, requiring 6 liters of oxygen at home. Acute and chronic hypoxic respiratory failure secondary to severe pulmonary fibrosis, asthma/COPD overlap, heart failure, severe pulmonary HTN, and suspected recurrent aspiration pneumonia. CHF was managed with IV Lasix, pneumonia was treated with a full course of antibiotics, and pulmonary fibrosis was addressed with IV steroids and bronchodilators. Despite these interventions, the patient?s condition continued to decline, and improvement is unlikely due to the severity of her pulmonary fibrosis. Goals of care were discussed with the patient and her family, and they have decided on hospice care at home. NSTEMI, managed medically with completion of 48 hours of anticoagulation. Echocardiogram showed a normal EF of 60?65% with severe pulmonary HTN. Evaluated by cardiology and continued on ASA and statin. Acute on chronic anemia, H/H remains stable. Monitor. Acute lactic acidosis attributed to hypoxia, not sepsis. Constipation Managed with Senna, Colace, and Bisacodyl. Hypertension Continue Losartan. Diabetes mellitus type 2 Resume home regimen, ADA diet. Chronic thrombocytosis At baseline. Dispo: home with hospice Time Attestation Discharge Coordination Time (in mins): 45 Quality: Safe Use of Opioids Does Pt have an Active Cancer Diagnosis on the Problem List?: No Quality: Stroke Does the patient have a stroke diagnosis?: No Physical Exam Vital Signs: Vital Signs: Last Vital Signs Temp 97.5 F 08/22/24 07:18 Pulse 86 08/22/24 07:18 Resp 20 08/22/24 07:18 BP 113/61 08/22/24 07:18 Pulse Ox 100 08/22/24 07:18 O2 Del Method Oxymask 08/22/24 07:18 O2 Flow Rate 8 08/22/24 07:18 BMI result Body Mass Index 19.3 DS: Data Data Completed and Pending Completed studies during hospitalization [Text1]: Procedures Assistance with Respiratory Ventilation, Less than 24 Consecutive Hours, Con tinuous Positive Airway Pressure (02/10/24) Labs on day of discharge: Laboratory Results - last 24 hr 08/21/24 08/21/24 08/21/24 07:08 11:02 16:09 POC Glucose 238 H 217 H 182 H 08/21/24 08/22/24 20:20 06:59 POC Glucose 221 H 147 H Discharge Plan Discharge Anticipated Discharge Date/Time: 08/22/24 07:37 Patient Disposition: Hospice - Home Discharge Diagnosis: Acute and chronic hypoxic resp failure due to severe pulm HTN, severe pulm fibrosis, copd/asthma Referrals: Po,Ciro Silva MD [Primary Care Provider] - 1 Week Discharge Medications: New morphine concentrate 100 mg/5 mL (20 mg/mL) solution 5 mg PO Q3H PRN (Reason: pain/comfort) 15 Days Qty: 30 0RF Rx Instructions: Partial Fill upon patient request. scopolamine base 1 mg over 3 days patch 3 day 1 patch transdermal Q72H 12 Days Qty: 4 0RF Rx Instructions: 1 patch behind ear Q72H for secretions lorazepam [Lorazepam Intensol] 2 mg/mL concentrate 0.5 mg PO Q4H PRN (Reason: anxiety/restlessness) Qty: 30 0RF Continued (DME) [facility] G2 blood glucose moniter starter kit See Rx Instructions .Route .MEDSUPPLY Qty: 1 0RF Rx Instructions: As directed (DME) medline basic face mask See Rx Instructions .Route .MEDSUPPLY Qty: 1 11RF Rx Instructions: As directed (DME) Medline ext cuff nitrile glove sterile pairs (medium) See Rx Instructions .Route .MEDSUPPLY Qty: 1 11RF Rx Instructions: As directed (DME) Medline wall mount sharps container 3 galloon red See Rx Instructions .Route .MEDSUPPLY Qty: 1 3RF Rx Instructions: As directed (DME) O2 Gas System Home Transfill Unit ([id number]) See Rx Instructions .Route .MEDSUPPLY Qty: 1 0RF Rx Instructions: As directed (DME) Washable Incontinence Pads (Rim Turning Finisher Pad) 0 .Route .MEDSUPPLY Qty: 60 12RF Rx Instructions: As directed (DME) BEDSIDE COMMODE See Rx Instructions .Route .MEDSUPPLY Qty: 1 0RF Rx Instructions: As directed (DME) WIPES See Rx Instructions .Route .MEDSUPPLY Qty: 2 11RF Rx Instructions: As directed (DME) incontinence pad, liner, disp Pad See Rx Instructions .Route Qty: 180 12RF Rx Instructions: As directed (DME) MEDIUM PULL UPS See Rx Instructions .Route .MEDSUPPLY Qty: 90 11RF Rx Instructions: As directed (DME) bedside commode Kit See Rx Instructions .Route Qty: 1 0RF Rx Instructions: As directed (DME) GERMICIDAL DISPOSABLE WIPES See Rx Instructions .Route .MEDSUPPLY Qty: 2 12RF Rx Instructions: As directed (DME) HOSPITAL BED See Rx Instructions .Route .MEDSUPPLY Qty: 1 0RF Rx Instructions: As directed (DME) Mattress for hospital bed 0 .Route .MEDSUPPLY Qty: 1 0RF Rx Instructions: As directed (DME) medline alcohol prep pads 1.75x3 See Rx Instructions .Route .MEDSUPPLY Qty: 1 12RF Rx Instructions: As directed (DME) medlinecontour plus bladder control pads See Rx Instructions .Route .MEDSUPPLY Qty: 90 12RF Rx Instructions: As directed (DME) Semi- Electric Hospital Bed with Mattress and Rails See Rx Instructions .Route .MEDSUPPLY Qty: 1 0RF Rx Instructions: As directed (DME) ULTRA THIN PADS See Rx Instructions .Route .MEDSUPPLY Qty: 30 12RF Rx Instructions: As directed (DME) ULTRASORB UNDER PADS See Rx Instructions .Route .MEDSUPPLY Qty: 1 11RF Rx Instructions: As directed metformin 750 mg tablet extended release 24 hr 750 mg PO BID 90 Days Qty: 180 3RF gabapentin 300 mg capsule 300 mg PO BEDTIME 90 Days Qty: 90 3RF aspirin [Adult Aspirin Regimen] 81 mg tablet,delayed release (DR/EC) 81 mg PO DAILY 90 Days Qty: 90 3RF (DME) pen needle, diabetic [BD Ultra-Fine Micro Pen Needle] 32 gauge x 1/4 needle See Rx Instructions .Route Qty: 100 0RF Rx Instructions: As directed inject insulin one a day (DME) hand held shower wand See Rx Instructions .Route .MEDSUPPLY Qty: 1 0RF Rx Instructions: As directed (DME) 10 wedge cushion See Rx Instructions .Route .MEDSUPPLY Qty: 1 0RF Rx Instructions: As directed (DME) miscellaneous medical supply Misc See Rx Instructions .Route Qty: 1 0RF Rx Instructions: As directed acetaminophen 500 mg tablet 1,000 mg PO TID PRN (Reason: Pain) Qty: 90 0RF furosemide [Lasix] 40 mg tablet 40 mg PO DAILY Qty: 90 0RF duloxetine 60 mg capsule,delayed release(DR/EC) 60 mg PO DAILY 90 Days Qty: 90 0RF (DME) RECLINER See Rx Instructions .Route .MEDSUPPLY Qty: 1 0RF Rx Instructions: As directed magnesium oxide 400 mg (241.3 mg magnesium) tablet 400 mg PO DAILY Qty: 30 0RF tamsulosin 0.4 mg capsule 0.4 mg PO BEDTIME insulin glargine [Lantus Solostar U-100 Insulin] 100 unit/mL (3 mL) insulin pen 10 unit subcut DAILY@1300 losartan 50 mg tablet 50 mg PO DAILY loratadine 10 mg tablet 10 mg PO DAILY tramadol 50 mg tablet 50 mg PO BEDTIME cholecalciferol (vitamin D3) 50 mcg (2,000 unit) capsule 50 mcg PO BEDTIME (DME) Oxygen Home Use Kit See Rx Instructions .Route Rx Instructions: As directed (DME) recliner See Rx Instructions .Route .MEDSUPPLY Qty: 1 0RF Rx Instructions: As directed (DME) BEDSIDE COMMODE See Rx Instructions .Route .MEDSUPPLY Qty: 1 0RF Rx Instructions: As directed mycophenolate mofetil 500 mg tablet 1,000 mg PO BID 30 Days Qty: 120 6RF Discharge Orders: Discharge Order (Routine); Ordered 08/22/24 Ordered By: Rene Dye Diet: Advance to usual diet Activity on Discharge: As tolerated Stand Alone Forms: Patient Portal Discharge page Print Language: [place] Care Plan Goals: hospice/comfort care at home for end stage pulmonary fibrosis, pulmonary HTN, asthma/copd overlap syndrome Health Concerns: same as above Plan of Treatment: Home with hospice care with goal of comfort care morphine as needed for comfort Ativan as needed for anxiety Assessment: see above
[2024-08-22] MEDS: Losartan Potassium 50 MG TABLET PO (09:22)
[2024-08-22] MEDS: DULoxetine HCl 60 MG CAPSULE.DR PO (09:22)
[2024-08-22] MEDS: guaiFENesin DM 600/30 1 TAB TAB.ER.12H PO (09:22)
[2024-08-22] MEDS: mycophenolate mofetiL 250 MG CAPSULE 1000 MG PO (09:23)
[2024-08-22] MEDS: 0.9 % Sodium Chloride Flush 3 ML SYRINGE IVFLUSH (09:23)
[2024-08-22] MEDS: Aspirin Enteric Coated 81 MG TABLET.DR PO (09:23)
[2024-08-22] MEDS: Loratadine 10 MG TABLET PO (09:23)
[2024-08-22] MEDS: Benzonatate 100 MG CAPSULE 200 MG PO (09:23)
[2024-08-22] MEDS: methylPREDNISolone Sod Succ 40 MG/ML VIAL IVPUSH (09:23)
[2024-08-22] MEDS: bisacodyL 5 MG TABLET.DR 10 MG PO (09:23)
[2024-08-22] MEDS: Docusate Sodium 100 MG CAPSULE PO (09:24)
[2024-08-22] MEDS: Furosemide 40 MG/4 ML VIAL IVPUSH (09:24)
== END 2024-08-22 10:30 | disposition hospice, home (50) | DRG 280 ==
LOC: HO.ED 15:15 → HO.EDOVER 15:44 → HO.IMC 08-13 12:01
PROVIDERS: Student in an Organized Health Care Education/Training Program; Admitting Provider Nurse Practitioner Acute Care; Emergency Provider Emergency Medicine; PCP Internal Medicine; Visit Provider Internal Medicine
DX: I21.4 Non-ST elevation (NSTEMI) myocardial infarction (principal); I50.33 Acute on chronic diastolic (congestive) heart failure; J69.0 Pneumonitis due to inhalation of food and vomit; J96.21 Acute and chronic respiratory failure with hypoxia; J98.11 Atelectasis; E87.21 Acute metabolic acidosis; J44.1 Chronic obstructive pulmonary disease with (acute) exacerbation; J45.901 Unspecified asthma with (acute) exacerbation; K59.00 Constipation, unspecified; E11.65 Type 2 diabetes mellitus with hyperglycemia; I27.23 Pulmonary hypertension due to lung diseases and hypoxia; J84.10 Pulmonary fibrosis, unspecified; D75.839 Thrombocytosis, unspecified; D64.9 Anemia, unspecified; I11.0 Hypertensive heart disease with heart failure; Z20.822 Contact with and (suspected) exposure to COVID-19; Z99.81 Dependence on supplemental oxygen; Z51.5 Encounter for palliative care; Z79.52 Long term (current) use of systemic steroids; Z79.4 Long term (current) use of insulin; Z79.82 Long term (current) use of aspirin; Z79.84 Long term (current) use of oral hypoglycemic drugs; Z79.899 Other long term (current) drug therapy
CPT/HCPCS: 0241U; 36415; 36600; 71045; 71260; 80048; 80076; 81001; 82803; 82947; 83540; 83605; 83690; 83735; 83880; 84484; 85025; 85027; 85610; 85730; 87040; 87633; 92526; 92610; 93005; 93306; 94640; 97162; 99285; J0456; J0696; J1650; J1756; J1940; J2270; J2916; J2919; J3475; P9047; Q9957; Q9967

== ENCOUNTER → 2024-08-12 13:30 | Outpatient (BNV) | payer OTHER, SELFPAY | PROVIDERS: Emergency Provider Emergency Medicine; PCP Internal Medicine; Visit Provider Radiology Diagnostic Radiology | DX: R06.02 Shortness of breath (principal) | CPT/HCPCS: 71045 ==

== ENCOUNTER 2024-08-12 15:37 | Outpatient (BNV) | payer OTHER, SELFPAY | END 2024-08-17 08:50 | PROVIDERS: Admitting Provider Nurse Practitioner Acute Care; Emergency Provider Emergency Medicine; PCP Internal Medicine; Visit Provider Radiology Diagnostic Radiology | DX: J96.21 Acute and chronic respiratory failure with hypoxia (principal); J84.10 Pulmonary fibrosis, unspecified | CPT/HCPCS: 71045 ==

== ENCOUNTER 2024-08-12 15:37 | Outpatient (BNV) | payer OTHER, SELFPAY | END 2024-08-13 08:32 | PROVIDERS: Admitting Provider Nurse Practitioner Acute Care; Emergency Provider Emergency Medicine; PCP Internal Medicine; Visit Provider Radiology Diagnostic Radiology | DX: I21.4 Non-ST elevation (NSTEMI) myocardial infarction (principal) | CPT/HCPCS: 71260 ==

== ENCOUNTER 2024-08-12 15:37 | Outpatient (BNV) | payer OTHER, SELFPAY | END 2024-08-15 09:50 | PROVIDERS: Admitting Provider Nurse Practitioner Acute Care; Emergency Provider Emergency Medicine; PCP Internal Medicine; Visit Provider Radiology Diagnostic Radiology | DX: R05.9 Cough, unspecified (principal); J96.21 Acute and chronic respiratory failure with hypoxia | CPT/HCPCS: 71045 ==

== ENCOUNTER 2024-08-12 15:37 | Outpatient (BNV) | payer OTHER, SELFPAY | END 2024-08-19 10:35 | PROVIDERS: Admitting Provider Nurse Practitioner Acute Care; Emergency Provider Emergency Medicine; PCP Internal Medicine; Visit Provider Radiology Diagnostic Radiology | DX: J18.9 Pneumonia, unspecified organism (principal); I51.7 Cardiomegaly | CPT/HCPCS: 71045 ==

== ENCOUNTER 2024-08-12 15:37 | Outpatient (BNV) | payer OTHER, SELFPAY | END 2024-08-14 07:00 | PROVIDERS: Admitting Provider Nurse Practitioner Acute Care; Emergency Provider Emergency Medicine; PCP Internal Medicine; Visit Provider Internal Medicine | DX: I50.810 Right heart failure, unspecified (principal); I36.1 Nonrheumatic tricuspid (valve) insufficiency | CPT/HCPCS: 93306 ==

== ENCOUNTER → 2024-08-12 15:37 | Outpatient (BNV) | payer OTHER, SELFPAY | PROVIDERS: Admitting Provider Nurse Practitioner Acute Care; Emergency Provider Emergency Medicine; PCP Internal Medicine; Visit Provider Internal Medicine | DX: I21.4 Non-ST elevation (NSTEMI) myocardial infarction (principal); I27.81 Cor pulmonale (chronic) | CPT/HCPCS: 93010; 99223 ==

== ENCOUNTER → 2024-08-12 15:37 | Outpatient (BNV) | payer OTHER, SELFPAY | PROVIDERS: Admitting Provider Nurse Practitioner Acute Care; Emergency Provider Emergency Medicine; PCP Internal Medicine; Visit Provider Student in an Organized Health Care Education/Training Program | DX: D64.9 Anemia, unspecified (principal); J96.21 Acute and chronic respiratory failure with hypoxia; I21.4 Non-ST elevation (NSTEMI) myocardial infarction; J84.9 Interstitial pulmonary disease, unspecified | CPT/HCPCS: 99223; 99232; 99233; 99499 ==

== ENCOUNTER → 2024-08-12 15:37 | Outpatient (BNV) | payer OTHER, SELFPAY | PROVIDERS: Admitting Provider Nurse Practitioner Acute Care; Emergency Provider Emergency Medicine; PCP Internal Medicine; Visit Provider Internal Medicine Pulmonary Disease | DX: I27.20 Pulmonary hypertension, unspecified (principal); I50.9 Heart failure, unspecified; J84.10 Pulmonary fibrosis, unspecified; J96.11 Chronic respiratory failure with hypoxia | CPT/HCPCS: 99222 ==